=== PATIENT | female | born 1965 | race Hispanic/Latino ===

== ENCOUNTER 2016-06-19 09:46 | Emergency (ER) | payer MEDICAID, OTHER ==
[2016-06-19] MEDS ORDERED: MORPHINE 4 MG/ML 1ML SYRINGE As Ordered ONE (10:34)
[2016-06-19] MEDS ORDERED: ONDANSETRON 4MG/2ML VIAL (J2405) As Ordered ONE (10:34)
[2016-06-19 10:49] LABS: BASO # 0.1 K/mm3 (0.0-0.2); EOS # 0.1 K/mm3 (0.0-0.50); EOS % 1.9 % (0.0-3.0); LARGE UNSTAINED CELL # 0.1 K/mm3 (0.0-0.4); LYMPH # 1.5 K/mm3 (1.5-4.5); LYMPH % 25.7 % (24.0-44.0); MEAN CORPUSCULAR HEMOGLOBIN 31.5 pg (27.0-33.0); MEAN CORPUSCULAR HGB CONC 32.9 g/dl (32.0-36.5); MEAN CORPUSCULAR VOLUME 95.6 fl (80.0-96.0); MONO # 0.3 K/mm3 (0.0-0.8); MONO % 5.6 % (0.0-5.0); NEUTROPHILS # 3.7 K/mm3 (1.8-7.7); NEUTROPHILS % 64.8 % (36.0-66.0); PLATELET COUNT, AUTOMATED 218 k/mm3 (150-450); WHITE BLOOD COUNT 5.7 K/mm3 (4.0-10.0)
--- NOTE | 2016-06-19 10:55 | REP ---
CT study of the abdomen and pelvis without contrast: Renal stone protocol. History: Right flank pain, renal colic. CT findings: The lung windows demonstrate an area of irregular linear fibrosis in the right lower lobe. The liver and the spleen are normal in size and homogeneous in texture. Gallbladder and pancreas are unremarkable. No adrenal lesion is seen on either side. There is no evidence of hydronephrosis in either kidney. No intrarenal calculus is seen on either side. No ureteral or bladder calculus is seen. There are pelvic phleboliths. The patient is status post hysterectomy. A normal appendix is seen in the right lower quadrant. There is a small periumbilical ventral hernia. Small and large intestinal bowel loops are unremarkable. Impression: 1. No urinary tract calculus or hydronephrosis. 2. Small periumbilical ventral hernia. 3. Status post hysterectomy. 4. Normal appendix seen. Signed by Jose Antonio Castrejon MD 06/19/2016 01:41 P
[2016-06-19 11:14] LABS: ALBUMIN 3.6 GM/DL (3.2-5.2); ALBUMIN/GLOBULIN RATIO 0.82 (1.00-1.93); ALKALINE PHOSPHATASE 96 U/L (45-117); ALT/SGPT 24 U/L (12-78); AMYLASE 70 U/L (25-115); ANION GAP 4 MEQ/L (8-16); AST/SGOT 18 U/L (15-37); BILIRUBIN,DIRECT < 0.1 MG/DL (0.0-0.2); BILIRUBIN,TOTAL 0.4 MG/DL (0.2-1.0); BLOOD UREA NITROGEN 20 MG/DL (7-18); CALCIUM LEVEL 8.7 MG/DL (8.5-10.1); CARBON DIOXIDE LEVEL 31 MEQ/L (21-32); CHLORIDE LEVEL 105 MEQ/L (98-107); CREATININE FOR GFR 0.96 MG/DL (0.55-1.02); GLOMERULAR FILTRATION RATE > 60.0 (>51); GLUCOSE, FASTING 78 MG/DL (70-105); POTASSIUM SERUM 4.2 MEQ/L (3.5-5.1); SODIUM LEVEL 140 MEQ/L (136-145)
[2016-06-19] MEDS ORDERED: NITROFURANTOIN (MACROBID) 100 MG CAP As Ordered ONE (11:41)
--- NOTE | 2016-06-19 11:45 | EDDOCDS ---
Physician Documentation [facility] Name: Ariadna Alanis Age: 51 yrs Sex: Female : 1965 Arrival Date: 06/19/2016 Time: 09:46 Bed I4 / M4 Private MD: Unknown Pcp Disposition: 06/19/16 11:24 Discharged to Home/Self Care. Impression: Urinary tract infection, site not specified, Low back pain - Acute, Unspecified abdominal hernia - Ventral Hernia on CT. - Condition is Stable. - Discharge Instructions: Back Pain, Adult, Urinary Tract Infection, Vfdc-bs-Iwzz, Hernia, Ttqy-vb-Kavd. - Prescriptions for Percocet 5- 325 mg Oral Tablet - take 1 tablet by ORAL route every 6 hours As needed MDD: 4 tabs; 20 tablet. Macrobid 100 mg Oral Capsule - take 100 milligram by ORAL route every 12 hours for 10 days; 20 capsule. - Medication Reconciliation, Local Pharmacy Hours form. - [facility] ; When: 1 - 2 days; Reason: Recheck today's complaints, Continuance of care. Follow up: Emergency Department; Reason: Worsening of conditions. Follow up: Danish Delvalle DO; When: Call to arrange an appointment; Reason: Further diagnostic work-up, Recheck today's complaints, Continuance of care. - Problem is new. - Symptoms have improved. Historical: - Allergies: no known allergies; - Home Meds: 1. trazodone 50 mg Oral tab 1 tab nightly 2. lisinopril 20 mg Oral tab 1 tab twice a day 3. EstroGel 1.25 gram/actuation transdermal glpm 1 pump once daily 4. fluoxetine 20 mg Oral tab 1 tab once daily 5. hydroxyzine HCl 25 mg Oral tab 1 tab as needed - PMHx: Hypertension; Anxiety; - PSHx: right shoulder; Hysterectomy; - Social history: Smoking status: Patient uses tobacco products, heavy tobacco smoker. No barriers to communication noted, The patient speaks fluent Kinyarwanda, Speaks appropriately for age. - Family history: Not pertinent. - : The pt / caregiver states he / she is not on anticoagulants. Home medication list is obtained from the patient. 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 5 in. (165.10 cm); Pain 10/10; 11:17 BP 120 / 74; Pulse 61; Resp 16; Pulse Ox 95% ; jmk 11:40 BP 144 / 91; Pulse 65; Resp 20; Temp 97.0(O); Pulse Ox 97% on R/A; Pain 6/10; jml1 09:48 Body Mass Index 20.47 (55.79 kg, 165.10 cm) jrd MDM: 10:10 IV Saline Lock ordered. ef1 10:10 Undress patient appropriately for examination ordered. ef1 10:10 morphine 4 mg IVP once ordered. ef1 10:11 Ondansetron 4 mg IVP once ordered. ef1 10:11 Amylase Ordered. EDMS 10:11 Basic Metabolic Profile Ordered. EDMS 10:11 CBC with Diff Ordered. EDMS 10:11 Lipase Ordered. EDMS 10:11 Liver Profile Ordered. EDMS 10:11 Urinalysis Ordered. EDMS 10:11 Urine Culture Ordered. EDMS 10:11 CT ABD & PELVIS: No Contrast Ordered. EDMS 10:11 NOTHING BY MOUTH+DIET ordered. EDMS 10:51 CBC with Diff Reviewed. ef1 10:56 Financial registration complete. lg 11:21 Basic Metabolic Profile Reviewed. ef1 11:21 Liver Profile Reviewed. ef1 11:21 Urinalysis Reviewed. ef1 11:21 Amylase Reviewed. ef1 11:21 Lipase Reviewed. ef1 11:21 CT ABD & PELVIS: No Contrast Reviewed. ef1 11:23 Nitrofurantoin 100 mg PO once ordered. ef1 11:35 [facility] Payment Agreement was scanned into JoggleBug and attached to record. lg Administered Medications: 10:39 Drug: morphine 4 mg [morphine 4 mg/mL intravenous cartridge (1 mL)] Route: IVP; Site: dls right antecubital; 10:39 Drug: Ondansetron 4 mg [ondansetron HCl 2 mg/mL intravenous solution (2 mL)] Route: dls IVP; Site: right antecubital; 11:43 Drug: Nitrofurantoin 100 mg Route: PO; deana Signatures: Dispatcher MedHost EDMS Ortez,Josep,RN RN Celestino Lee, Reg Reg lg Christianne Celis, PA-C PA-C ef1 Susu Ferrera RN RN hs1 Cassandra Gibson RN dls The chart was reviewed and I authenticate all verbal orders and agree with the evaluation and treatment provided.Attachments: 11:35 [facility] Payment Agreement lg MTDD
--- NOTE | 2016-06-19 11:45 | EDDOCDS ---
Nurse's Notes [facility] Name: Ariadna Alanis Age: 51 yrs Sex: Female : 1965 Arrival Date: 06/19/2016 Time: 09:46 Bed I4 / M4 Private MD: Unknown Pcp Diagnosis: Urinary tract infection, site not specified;Low back pain-Acute;Unspecified abdominal hernia-Ventral Hernia on CT Presentation: 06/19 09:50 Presenting complaint: Patient states: lower back pain and history of stage 3 kidney hs1 disease patient states was concerned. Patient reports that she has no issues urinating at present. Patient reports pain traveling down the backs of her legs through her buttocks. Adult Sepsis Screening: The patient does not have new or worsening altered mentation. Patient's respiratory rate is less than 22. Systolic blood pressure is greater than 100. Patient has a qSOFA score of 0- Negative Sepsis Screen. Suicide/Homicide risk assessment- the patient denies having any suicidal and/or homicidal ideations and does not present with any other emotional, behavioral or mental health complaints. 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 Transition of care: patient was not received from another setting of care. 09:50 Method Of Arrival: Walkin/Carried/Asstd hs1 10:11 Acuity level changed due to complexity of care. dls 10:11 Acuity: JAMES Level 3 dls Triage Assessment: 09:54 General: Appears in no apparent distress, Behavior is appropriate for age, cooperative. hs1 Pain: Location: back Pain currently is 10 out of 10 on a pain scale. Pt Declines HIV testing. Neurological: Level of Consciousness is awake, alert. Respiratory: Airway is patent Respiratory effort is even, unlabored, Respiratory pattern is regular, symmetrical. Derm: Skin is pink, warm & dry. normal. 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 trazodone 50 mg Oral tab 1 tab nightly 2. lisinopril 20 mg Oral tab 1 tab twice a day 3. EstroGel 1.25 gram/actuation transdermal glpm 1 pump once daily 4. fluoxetine 20 mg Oral tab 1 tab once daily 5. hydroxyzine HCl 25 mg Oral tab 1 tab as needed - PMHx: Hypertension; Anxiety; - PSHx: right shoulder; Hysterectomy; - Social history: Smoking status: Patient uses tobacco products, heavy tobacco smoker. No barriers to communication noted, The patient speaks fluent Azerbaijani, Speaks appropriately for age. - Family history: Not pertinent. - : The pt / caregiver states he / she is not on anticoagulants. Home medication list is obtained from the patient. 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 Screenin:54 Screening information is obtained from the patient. Fall risk: No risks identified. hs1 Assistance ADL's: requires no assistance with activities of daily living. Abuse/DV Screen: The patient / caregiver reports he/she is: not in a situation that causes fear, pain or injury. Nutritional screening: No deficits noted. Advance Directives: There is no active DNR order. home support is adequate. Assessment: 10:42 General: Appears in no apparent distress, skin warm and dry. color satisfactory. Moist jmk pink oral mucosa. indicates right flank pain. without redness swelling or redness. + cva tenderness. abdomen soft and non distended with bowel sounds present x 4.. 11:16 General: Appears state pain has decreased to 7/10. laying quietly on stretcher watching [employer] TV.. Vital Signs: 09:48 BP 128 / 92; Pulse 79; Resp 18; Temp 97.5; Pulse Ox 100% ; Weight 55.79 kg (R); Height d 5 ft. 5 in. (165.10 cm); Pain 10/10; 11:17 BP 120 / 74; Pulse 61; Resp 16; Pulse Ox 95% ; jmk 11:40 BP 144 / 91; Pulse 65; Resp 20; Temp 97.0(O); Pulse Ox 97% on R/A; Pain 6/10; jml1 09:48 Body Mass Index 20.47 (55.79 kg, 165.10 cm) [facility] Vitals: 09:48 Log In Time: June 19, 2016 at 09:40. [facility] ED Course: 09:47 Patient visited by Soham Canela PCA. jrd 09:47 Unknown Pcp is Private Physician. jrd 09:47 Patient moved to Waiting jrd 09:49 Patient visited by Soham Canela PCA. jrd 09:49 Patient moved to Pre RCE jrd 09:52 Triage Initiated hs1 09:55 Patient moved to Triage 3 hs1 10:02 [facility] Celis [facility] ef1 10:02 Angelo Corrigan MD is Attending Physician. ef1 10:02 Patient visited by Christianne Celis PA-C. ef1 10:21 Patient moved to I4 / M4 ct3 10:41 Amylase Sent. jmk 10:41 Basic Metabolic Profile Sent. jmk 10:41 CBC with Diff Sent. jmk 10:41 Lipase Sent. jmk 10:41 Liver Profile Sent. jmk 10:41 Urinalysis Sent. jmk 10:41 Urine Culture Sent. jmk 10:42 The patient / caregiver is instructed regarding the plan of care and ED course. jmk 10:42 Inserted saline lock: 20 gauge in right antecubital area. jmk 10:44 Patient visited by Josep Ortez RN. jmk 11:16 Patient visited by Christianne Celis PA-C. ef1 11:19 CT ABD & PELVIS: No Contrast Returned. EDMS 11:24 [facility] is Referral Physician. ef1 11:24 Patient name changed from Ariadna\S\M\S\Alanis\S\ to Ariadna\S\Tia\S\Alanis. EDMS 11:27 Danish Delvalle DO is Referral Physician. ef1 11:35 [facility] [place] Agreement was scanned into [email or web address] and attached to record. lg 11:41 Patient visited by Cristofer Barfield. jml1 Administered Medications: 10:39 Drug: morphine 4 mg [morphine 4 mg/mL intravenous cartridge (1 mL)] Route: IVP; Site: dls right antecubital; 10:39 Drug: Ondansetron 4 mg [ondansetron HCl 2 mg/mL intravenous solution (2 mL)] Route: dls IVP; Site: right antecubital; 11:43 Drug: Nitrofurantoin 100 mg Route: PO; deana Order Results: Lab Order: Amylase; SPEC'M 06/19/16 10:26 Test: AMYLASE; Value: 70; Range: 25-115; Units: U/L; Status: F Lab Order: Basic Metabolic Profile; SPEC'M 06/19/16 10:26 Test: GLUCOSE, FASTING; Value: 78; Range: 70-105; Units: MG/DL; Status: F Test: BLOOD UREA NITROGEN; Value: 20; Range: 7-18; Abnormal: Above high normal; Units: MG/DL; Status: F Test: CREATININE FOR GFR; Value: 0.96; Range: 0.55-1.02; Units: MG/DL; Status: F Test: GLOMERULAR FILTRATION RATE; Value: > 60.0; Range: >51; Status: F Test: SODIUM LEVEL; Value: 140; Range: 136-145; Units: MEQ/L; Status: F Test: POTASSIUM SERUM; Value: 4.2; Range: 3.5-5.1; Units: MEQ/L; Status: F Test: CHLORIDE LEVEL; Value: 105; Range: 98-107; Units: MEQ/L; Status: F Test: CARBON DIOXIDE LEVEL; Value: 31; Range: 21-32; Units: MEQ/L; Status: F Test: ANION GAP; Value: 4; Range: 8-16; Abnormal: Below low normal; Units: MEQ/L; Status: F Test: CALCIUM LEVEL; Value: 8.7; Range: 8.5-10.1; Units: MG/DL; Status: F Test Note: ; Units are mL/min/1.73 m2 Chronic Kidney Disease Staging per NKF: Stage I & II GFR >=60 Normal to Mildly Decreased Stage III GFR 30-59 Moderately Decreased Stage IV GFR 15-29 Severely Decreased Stage V GFR <15 Very Little GFR Left ESRD GFR <15 on HEADLIGHT 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 Lab Order: CBC with Diff; SPEC'M 06/19/16 10:25 Test: WHITE BLOOD COUNT; Value: 5.7; Range: 4.0-10.0; Units: K/mm3; Status: F Test: RED BLOOD COUNT; Value: 4.29; Range: 4.00-5.40; Units: M/mm3; Status: F Test: HEMOGLOBIN; Value: 13.5; Range: 12.0-16.0; Units: g/dl; Status: F Test: HEMATOCRIT; Value: 41.0; Range: 36.0-47.0; Units: %; Status: F Test: MEAN CORPUSCULAR VOLUME; Value: 95.6; Range: 80.0-96.0; Units: fl; Status: F Test: MEAN CORPUSCULAR HEMOGLOBIN; Value: 31.5; Range: 27.0-33.0; Units: pg; Status: F Test: MEAN CORPUSCULAR HGB CONC; Value: 32.9; Range: 32.0-36.5; Units: g/dl; Status: F Test: RED CELL DISTRIBUTION WIDTH; Value: 13.0; Range: 11.5-14.5; Units: %; Status: F Test: PLATELET COUNT, AUTOMATED; Value: 218; Range: 150-450; Units: k/mm3; Status: F Test: NEUTROPHILS %; Value: 64.8; Range: 36.0-66.0; Units: %; Status: F Test: LYMPH %; Value: 25.7; Range: 24.0-44.0; Units: %; Status: F Test: MONO %; Value: 5.6; Range: 0.0-5.0; Abnormal: Above high normal; Units: %; Status: F Test: EOS %; Value: 1.9; Range: 0.0-3.0; Units: %; Status: F Test: BASO %; Value: 1.0; Range: 0.0-1.0; Units: %; Status: F Test: LARGE UNSTAINED CELL %; Value: 1.0; Range: 0.0-4.0; Units: %; Status: F Test: NEUTROPHILS #; Value: 3.7; Range: 1.8-7.7; Units: K/mm3; Status: F Test: LYMPH #; Value: 1.5; Range: 1.5-4.5; Units: K/mm3; Status: F Test: MONO #; Value: 0.3; Range: 0.0-0.8; Units: K/mm3; Status: F Test: EOS #; Value: 0.1; Range: 0.0-0.50; Units: K/mm3; Status: F Test: BASO #; Value: 0.1; Range: 0.0-0.2; Units: K/mm3; Status: F Test: LARGE UNSTAINED CELL #; Value: 0.1; Range: 0.0-0.4; Units: K/mm3; Status: F Lab Order: Lipase; SPEC'M 06/19/16 10:26 Test: LIPASE; Value: 184; Range: 73-393; Units: U/L; Status: F Lab Order: Liver Profile; SPEC'M 06/19/16 10:26 Test: AST/SGOT; Value: 18; Range: 15-37; Units: U/L; Status: F Test: ALT/SGPT; Value: 24; Range: 12-78; Units: U/L; Status: F Test: ALKALINE PHOSPHATASE; Value: 96; Range: 45-117; Units: U/L; Status: F Test: BILIRUBIN,TOTAL; Value: 0.4; Range: 0.2-1.0; Units: MG/DL; Status: F Test: BILIRUBIN,DIRECT; Value: < 0.1; Range: 0.0-0.2; Units: MG/DL; Status: F Test: TOTAL PROTEIN; Value: 8.0; Range: 6.4-8.2; Units: GM/DL; Status: F Test: ALBUMIN; Value: 3.6; Range: 3.2-5.2; Units: GM/DL; Status: F Test: ALBUMIN/GLOBULIN RATIO; Value: 0.82; Range: 1.00-1.93; Abnormal: Below low normal; Status: F Lab Order: Urinalysis; SPEC'M 06/19/16 10:26 Test: APPEARANCE, URINE; Value: HAZY; Range: CLEAR; Status: F Test: COLOR, URINE; Value: YELLOW; Range: YELLOW; Status: F Test: PH,URINE; Value: 6.0; Range: 5.0-9.0; Units: UNITS; Status: F Test: SPECIFIC GRAVITY URINE AUTO; Value: 1.015; Range: 1.002-1.035; Status: F Test: PROTEIN, URINE AUTO; Value: NEGATIVE; Range: NEGATIVE; Units: mg/dL; Status: F Test: GLUCOSE, URINE (UA) AUTO; Value: NEGATIVE; Range: NEGATIVE; Units: mg/dL; Status: F Test: KETONE, URINE AUTO; Value: NEGATIVE; Range: NEGATIVE; Units: mg/dL; Status: F Test: UROBILINOGEN, URINE AUTO; Value: 0.2; Range: 0.0-2.0; Units: mg/dL; Status: F Test: BILIRUBIN, URINE AUTO; Value: NEGATIVE; Range: NEGATIVE; Status: F Test: NITRITE, URINE AUTO; Value: NEGATIVE; Range: NEGATIVE; Status: F Test: LEUKOCYTE ESTERASE, URINE AUTO; Value: NEGATIVE; Range: NEGATIVE; Status: F Test: BLOOD, URINE BLOOD; Value: 1+; Range: NEGATIVE; Abnormal: Above high normal; Status: F Test: WBC, URINE AUTO; Value: 4; Range: 0-3; Abnormal: Above high normal; Units: /HPF; Status: F Test: RBC, URINE AUTO; Value: 1; Range: 0-3; Units: /HPF; Status: F Test: BACTERIA, URINE AUTO; Value: NEGATIVE; Range: NEGATIVE; Status: F Test: SQUAMOUS EPITHELIAL CELL UR AU; Value: 10; Range: 0-6; Units: /HPF; Status: F Test: MUCUS, URINE; Value: SMALL; Range: NEGATIVE; Status: F Test: HYALINE CAST, URINE AUTO; Value: 0; Range: 0-1; Units: /LPF; Status: F Radiology Order: CT ABD & PELVIS: No Contrast Test: CT ABD & PELVIS: No Contrast REASON FOR EXAMINATION: Renal colic; CT study of the abdomen and pelvis without contrast: Renal stone protocol.; ; History: Right flank pain, renal colic.; ; CT findings: The lung windows demonstrate an area of irregular linear fibrosis; in the right lower lobe.; ; The liver and the spleen are normal in size and homogeneous in texture.; Gallbladder and pancreas are unremarkable. No adrenal lesion is seen on either; side.; ; There is no evidence of hydronephrosis in either kidney. No intrarenal calculus; is seen on either side. No ureteral or bladder calculus is seen. There are; pelvic phleboliths. The patient is status post hysterectomy. A normal appendix; is seen in the right lower quadrant. There is a small periumbilical ventral; hernia. Small and large intestinal bowel loops are unremarkable.; ; Impression:; 1. No urinary tract calculus or hydronephrosis.; 2. Small periumbilical ventral hernia.; 3. Status post hysterectomy.; 4. Normal appendix seen.; ; ; ; ; Unreviewed; Outcome: 11:24 Discharge ordered by Provider. ef1 11:43 Discharge Assessment: Patient awake, alert and oriented x 3. No cognitive and/or jmk functional deficits noted. Patient verbalized understanding of disposition instructions. patient administered narcotics - yes. Pt provided with safe discharge. The following High Risk Discharge criteria are identified: None. Discharged to home ambulatory, with family, with parent. Condition: good. Discharge instructions given to patient, Instructed on discharge instructions, follow up and referral plans. medication usage, Demonstrated understanding of instructions, medications, Pt was receptive of discharge instructions/ teaching. No special radiology studies were completed. Property :Personal belongings accompany Pt. 11:44 Patient left the ED. deana Signatures: Dispatcher MedHost EDMS Josep Ortez RN RN Cassandra Figueroa RN RN Celestino Bliss, Reg Reg lg Christianne Celis, PA-C PA-C ef1 Susu Ferrera RN RN hs1 Mini Edmond, EARLY CHILDHOOD ASSOCIATE EARLY CHILDHOOD ASSOCIATE ct3 Cristofer Barfield jml1 Soham Canela, EARLY CHILDHOOD ASSOCIATE EARLY CHILDHOOD ASSOCIATE jrd Corrections: (The following items were deleted from the chart) 10:11 09:50 Acuity: JAMES Level 4 hs1 dls MTDD
--- NOTE | 2016-06-21 12:44 | EDDOCDS ---
Physician Documentation [facility] Name: Ariadna Alanis Age: 51 yrs Sex: Female : 1965 Arrival Date: 06/19/2016 Time: 09:46 Bed I4 / M4 Private MD: Unknown Pcp Disposition: 06/19/16 11:24 Discharged to Home/Self Care. Impression: Urinary tract infection, site not specified, Low back pain - Acute, Unspecified abdominal hernia - Ventral Hernia on CT. - Condition is Stable. - Discharge Instructions: Back Pain, Adult, Urinary Tract Infection, Gxty-mr-Ssme, Hernia, Ybwi-rj-Kkbw. - Prescriptions for Percocet 5- 325 mg Oral Tablet - take 1 tablet by ORAL route every 6 hours As needed MDD: 4 tabs; 20 tablet. Macrobid 100 mg Oral Capsule - take 100 milligram by ORAL route every 12 hours for 10 days; 20 capsule. - Medication Reconciliation, Local Pharmacy Hours form. - [facility] ; When: 1 - 2 days; Reason: Recheck today's complaints, Continuance of care. Follow up: Emergency Department; Reason: Worsening of conditions. Follow up: Danish Delvalle DO; When: Call to arrange an appointment; Reason: Further diagnostic work-up, Recheck today's complaints, Continuance of care. - Problem is new. - Symptoms have improved. Historical: - Allergies: no known allergies; - Home Meds: 1. trazodone 50 mg Oral tab 1 tab nightly 2. lisinopril 20 mg Oral tab 1 tab twice a day 3. EstroGel 1.25 gram/actuation transdermal glpm 1 pump once daily 4. fluoxetine 20 mg Oral tab 1 tab once daily 5. hydroxyzine HCl 25 mg Oral tab 1 tab as needed - PMHx: Hypertension; Anxiety; - PSHx: right shoulder; Hysterectomy; - Social history: Smoking status: Patient uses tobacco products, heavy tobacco smoker. No barriers to communication noted, The patient speaks fluent Korean, Speaks appropriately for age. - Family history: Not pertinent. - : The pt / caregiver states he / she is not on anticoagulants. Home medication list is obtained from the patient. 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 5 in. (165.10 cm); Pain 10/10; 11:17 BP 120 / 74; Pulse 61; Resp 16; Pulse Ox 95% ; jmk 11:40 BP 144 / 91; Pulse 65; Resp 20; Temp 97.0(O); Pulse Ox 97% on R/A; Pain 6/10; jml1 09:48 Body Mass Index 20.47 (55.79 kg, 165.10 cm) jrd MDM: 10:10 IV Saline Lock ordered. ef1 10:10 Undress patient appropriately for examination ordered. ef1 10:10 morphine 4 mg IVP once ordered. ef1 10:11 Ondansetron 4 mg IVP once ordered. ef1 10:11 Amylase Ordered. EDMS 10:11 Basic Metabolic Profile Ordered. EDMS 10:11 CBC with Diff Ordered. EDMS 10:11 Lipase Ordered. EDMS 10:11 Liver Profile Ordered. EDMS 10:11 Urinalysis Ordered. EDMS 10:11 Urine Culture Ordered. EDMS 10:11 CT ABD & PELVIS: No Contrast Ordered. EDMS 10:11 NOTHING BY MOUTH+DIET ordered. EDMS 10:51 CBC with Diff Reviewed. ef1 10:56 Financial registration complete. lg 11:21 Basic Metabolic Profile Reviewed. ef1 11:21 Liver Profile Reviewed. ef1 11:21 Urinalysis Reviewed. ef1 11:21 Amylase Reviewed. ef1 11:21 Lipase Reviewed. ef1 11:21 CT ABD & PELVIS: No Contrast Reviewed. ef1 11:23 Nitrofurantoin 100 mg PO once ordered. ef1 11:35 [facility] Payment Agreement was scanned into Slingbox and attached to record. lg 14:17 T-Sheet-- Draft Copy was scanned into Slingbox and attached to record. gb 14:17 Radiology Report was scanned into Slingbox and attached to record. gb Administered Medications: 10:39 Drug: morphine 4 mg [morphine 4 mg/mL intravenous cartridge (1 mL)] Route: IVP; Site: dls right antecubital; 10:39 Drug: Ondansetron 4 mg [ondansetron HCl 2 mg/mL intravenous solution (2 mL)] Route: dls IVP; Site: right antecubital; 11:43 Drug: Nitrofurantoin 100 mg Route: PO; deana Signatures: Dispatcher MedHost Josep Meyer,RN RN Yoanna Patten, Reg Reg gb PabloCelestino, Reg Reg lg Christianne Celis, PA-C PATabithaC ef1 Susu Ferrera RN RN hs1 Cassandra Gibson RN dls The chart was reviewed and I authenticate all verbal orders and agree with the evaluation and treatment provided.Attachments: 11:35 [facility] Payment Agreement lg 14:17 T-Sheet-- Draft Copy gb Chart Complete MTDD
--- NOTE | 2016-06-21 12:44 | EDDOCDS ---
Nurse's Notes [facility] Name: Ariadna Alanis Age: 51 yrs Sex: Female : 1965 Arrival Date: 06/19/2016 Time: 09:46 Bed I4 / M4 Private MD: Unknown Pcp Diagnosis: Urinary tract infection, site not specified;Low back pain-Acute;Unspecified abdominal hernia-Ventral Hernia on CT Presentation: 06/19 09:50 Presenting complaint: Patient states: lower back pain and history of stage 3 kidney hs1 disease patient states was concerned. Patient reports that she has no issues urinating at present. Patient reports pain traveling down the backs of her legs through her buttocks. Adult Sepsis Screening: The patient does not have new or worsening altered mentation. Patient's respiratory rate is less than 22. Systolic blood pressure is greater than 100. Patient has a qSOFA score of 0- Negative Sepsis Screen. Suicide/Homicide risk assessment- the patient denies having any suicidal and/or homicidal ideations and does not present with any other emotional, behavioral or mental health complaints. 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 Transition of care: patient was not received from another setting of care. 09:50 Method Of Arrival: Walkin/Carried/Asstd hs1 10:11 Acuity level changed due to complexity of care. dls 10:11 Acuity: JAMES Level 3 dls Triage Assessment: 09:54 General: Appears in no apparent distress, Behavior is appropriate for age, cooperative. hs1 Pain: Location: back Pain currently is 10 out of 10 on a pain scale. Pt Declines HIV testing. Neurological: Level of Consciousness is awake, alert. Respiratory: Airway is patent Respiratory effort is even, unlabored, Respiratory pattern is regular, symmetrical. Derm: Skin is pink, warm & dry. normal. IP COUNSEL: 09:55 LMP N/A - Hysterectomy hs1 Historical: - Allergies: no known allergies; - Home Meds: 1. trazodone 50 mg Oral tab 1 tab nightly 2. lisinopril 20 mg Oral tab 1 tab twice a day 3. EstroGel 1.25 gram/actuation transdermal glpm 1 pump once daily 4. fluoxetine 20 mg Oral tab 1 tab once daily 5. hydroxyzine HCl 25 mg Oral tab 1 tab as needed - PMHx: Hypertension; Anxiety; - PSHx: right shoulder; Hysterectomy; - Social history: Smoking status: Patient uses tobacco products, heavy tobacco smoker. No barriers to communication noted, The patient speaks fluent Ecuadorean, Speaks appropriately for age. - Family history: Not pertinent. - : The pt / caregiver states he / she is not on anticoagulants. Home medication list is obtained from the patient. 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 Screenin:54 Screening information is obtained from the patient. Fall risk: No risks identified. hs1 Assistance ADL's: requires no assistance with activities of daily living. Abuse/DV Screen: The patient / caregiver reports he/she is: not in a situation that causes fear, pain or injury. Nutritional screening: No deficits noted. Advance Directives: There is no active DNR order. home support is adequate. Assessment: 10:42 General: Appears in no apparent distress, skin warm and dry. color satisfactory. Moist jmk pink oral mucosa. indicates right flank pain. without redness swelling or redness. + cva tenderness. abdomen soft and non distended with bowel sounds present x 4.. 11:16 General: Appears state pain has decreased to 7/10. laying quietly on stretcher watching [employer] TV.. Vital Signs: 09:48 BP 128 / 92; Pulse 79; Resp 18; Temp 97.5; Pulse Ox 100% ; Weight 55.79 kg (R); Height d 5 ft. 5 in. (165.10 cm); Pain 10/10; 11:17 BP 120 / 74; Pulse 61; Resp 16; Pulse Ox 95% ; jmk 11:40 BP 144 / 91; Pulse 65; Resp 20; Temp 97.0(O); Pulse Ox 97% on R/A; Pain 6/10; jml1 09:48 Body Mass Index 20.47 (55.79 kg, 165.10 cm) [facility] Vitals: 09:48 Log In Time: June 19, 2016 at 09:40. [facility] ED Course: 09:47 Patient visited by Shoam Canela PCA. jrd 09:47 Unknown Pcp is Private Physician. jrd 09:47 Patient moved to Waiting jrd 09:49 Patient visited by Soham Canela PCA. jrd 09:49 Patient moved to Pre RCE jrd 09:52 Triage Initiated hs1 09:55 Patient moved to Triage 3 hs1 10:02 Christianne Celis PA-C is [facility]. ef1 10:02 Angelo Corrigan MD is Attending Physician. ef1 10:02 Patient visited by Christianne Celis PA-C. ef1 10:21 Patient moved to I4 / M4 ct3 10:41 Amylase Sent. jmk 10:41 Basic Metabolic Profile Sent. jmk 10:41 CBC with Diff Sent. jmk 10:41 Lipase Sent. jmk 10:41 Liver Profile Sent. jmk 10:41 Urinalysis Sent. jmk 10:41 Urine Culture Sent. jmk 10:42 The patient / caregiver is instructed regarding the plan of care and ED course. jmk 10:42 Inserted saline lock: 20 gauge in right antecubital area. jmk 10:44 Patient visited by Josep Ortez RN. jmk 11:16 Patient visited by Christianne Celis PA-C. ef1 11:19 CT ABD & PELVIS: No Contrast Returned. EDMS 11:24 [facility] is Referral Physician. ef1 11:24 Patient name changed from Ariadna\S\M\S\Alanis\S\ to Ariadna\S\Tia\S\Alanis. EDMS 11:27 Danish Delvalle DO is Referral Physician. ef1 11:35 [facility] [place] Agreement was scanned into [employer] and attached to record. lg 11:41 Patient visited by Cristofer Barfield. jml1 14:07 CT ABD & PELVIS: No Contrast Returned. EDMS 14:17 T-Sheet-- Draft Copy was scanned into [employer] and attached to record. gb 14:17 Radiology Report was scanned into [employer] and attached to record. gb Administered Medications: 10:39 Drug: morphine 4 mg [morphine 4 mg/mL intravenous cartridge (1 mL)] Route: IVP; Site: dls right antecubital; 10:39 Drug: Ondansetron 4 mg [ondansetron HCl 2 mg/mL intravenous solution (2 mL)] Route: dls IVP; Site: right antecubital; 11:43 Drug: Nitrofurantoin 100 mg Route: PO; jmk Order Results: Lab Order: Amylase; SPEC'M 06/19/16 10:26 Test: AMYLASE; Value: 70; Range: 25-115; Units: U/L; Status: F Lab Order: Basic Metabolic Profile; SPEC'M 06/19/16 10:26 Test: GLUCOSE, FASTING; Value: 78; Range: 70-105; Units: MG/DL; Status: F Test: BLOOD UREA NITROGEN; Value: 20; Range: 7-18; Abnormal: Above high normal; Units: MG/DL; Status: F Test: CREATININE FOR GFR; Value: 0.96; Range: 0.55-1.02; Units: MG/DL; Status: F Test: GLOMERULAR FILTRATION RATE; Value: > 60.0; Range: >51; Status: F Test: SODIUM LEVEL; Value: 140; Range: 136-145; Units: MEQ/L; Status: F Test: POTASSIUM SERUM; Value: 4.2; Range: 3.5-5.1; Units: MEQ/L; Status: F Test: CHLORIDE LEVEL; Value: 105; Range: 98-107; Units: MEQ/L; Status: F Test: CARBON DIOXIDE LEVEL; Value: 31; Range: 21-32; Units: MEQ/L; Status: F Test: ANION GAP; Value: 4; Range: 8-16; Abnormal: Below low normal; Units: MEQ/L; Status: F Test: CALCIUM LEVEL; Value: 8.7; Range: 8.5-10.1; Units: MG/DL; Status: F Test Note: ; Units are mL/min/1.73 m2 Chronic Kidney Disease Staging per NKF: Stage I & II GFR >=60 Normal to Mildly Decreased Stage III GFR 30-59 Moderately Decreased Stage IV GFR 15-29 Severely Decreased Stage V GFR <15 Very Little GFR Left ESRD GFR <15 on END MAKER Lab Order: CBC with Diff; SPEC'M 06/19/16 10:25 Test: WHITE BLOOD COUNT; Value: 5.7; Range: 4.0-10.0; Units: K/mm3; Status: F Test: RED BLOOD COUNT; Value: 4.29; Range: 4.00-5.40; Units: M/mm3; Status: F Test: HEMOGLOBIN; Value: 13.5; Range: 12.0-16.0; Units: g/dl; Status: F Test: HEMATOCRIT; Value: 41.0; Range: 36.0-47.0; Units: %; Status: F Test: MEAN CORPUSCULAR VOLUME; Value: 95.6; Range: 80.0-96.0; Units: fl; Status: F Test: MEAN CORPUSCULAR HEMOGLOBIN; Value: 31.5; Range: 27.0-33.0; Units: pg; Status: F Test: MEAN CORPUSCULAR HGB CONC; Value: 32.9; Range: 32.0-36.5; Units: g/dl; Status: F Test: RED CELL DISTRIBUTION WIDTH; Value: 13.0; Range: 11.5-14.5; Units: %; Status: F Test: PLATELET COUNT, AUTOMATED; Value: 218; Range: 150-450; Units: k/mm3; Status: F Test: NEUTROPHILS %; Value: 64.8; Range: 36.0-66.0; Units: %; Status: F Test: LYMPH %; Value: 25.7; Range: 24.0-44.0; Units: %; Status: F Test: MONO %; Value: 5.6; Range: 0.0-5.0; Abnormal: Above high normal; Units: %; Status: F Test: EOS %; Value: 1.9; Range: 0.0-3.0; Units: %; Status: F Test: BASO %; Value: 1.0; Range: 0.0-1.0; Units: %; Status: F Test: LARGE UNSTAINED CELL %; Value: 1.0; Range: 0.0-4.0; Units: %; Status: F Test: NEUTROPHILS #; Value: 3.7; Range: 1.8-7.7; Units: K/mm3; Status: F Test: LYMPH #; Value: 1.5; Range: 1.5-4.5; Units: K/mm3; Status: F Test: MONO #; Value: 0.3; Range: 0.0-0.8; Units: K/mm3; Status: F Test: EOS #; Value: 0.1; Range: 0.0-0.50; Units: K/mm3; Status: F Test: BASO #; Value: 0.1; Range: 0.0-0.2; Units: K/mm3; Status: F Test: LARGE UNSTAINED CELL #; Value: 0.1; Range: 0.0-0.4; Units: K/mm3; Status: F Lab Order: Lipase; SPEC'M 06/19/16 10:26 Test: LIPASE; Value: 184; Range: 73-393; Units: U/L; Status: F Lab Order: Liver Profile; SPEC'M 06/19/16 10:26 Test: AST/SGOT; Value: 18; Range: 15-37; Units: U/L; Status: F Test: ALT/SGPT; Value: 24; Range: 12-78; Units: U/L; Status: F Test: ALKALINE PHOSPHATASE; Value: 96; Range: 45-117; Units: U/L; Status: F Test: BILIRUBIN,TOTAL; Value: 0.4; Range: 0.2-1.0; Units: MG/DL; Status: F Test: BILIRUBIN,DIRECT; Value: < 0.1; Range: 0.0-0.2; Units: MG/DL; Status: F Test: TOTAL PROTEIN; Value: 8.0; Range: 6.4-8.2; Units: GM/DL; Status: F Test: ALBUMIN; Value: 3.6; Range: 3.2-5.2; Units: GM/DL; Status: F Test: ALBUMIN/GLOBULIN RATIO; Value: 0.82; Range: 1.00-1.93; Abnormal: Below low normal; Status: F Lab Order: Urinalysis; SPEC'M 06/19/16 10:26 Test: APPEARANCE, URINE; Value: HAZY; Range: CLEAR; Status: F Test: COLOR, URINE; Value: YELLOW; Range: YELLOW; Status: F Test: PH,URINE; Value: 6.0; Range: 5.0-9.0; Units: UNITS; Status: F Test: SPECIFIC GRAVITY URINE AUTO; Value: 1.015; Range: 1.002-1.035; Status: F Test: PROTEIN, URINE AUTO; Value: NEGATIVE; Range: NEGATIVE; Units: mg/dL; Status: F Test: GLUCOSE, URINE (UA) AUTO; Value: NEGATIVE; Range: NEGATIVE; Units: mg/dL; Status: F Test: KETONE, URINE AUTO; Value: NEGATIVE; Range: NEGATIVE; Units: mg/dL; Status: F Test: UROBILINOGEN, URINE AUTO; Value: 0.2; Range: 0.0-2.0; Units: mg/dL; Status: F Test: BILIRUBIN, URINE AUTO; Value: NEGATIVE; Range: NEGATIVE; Status: F Test: NITRITE, URINE AUTO; Value: NEGATIVE; Range: NEGATIVE; Status: F Test: LEUKOCYTE ESTERASE, URINE AUTO; Value: NEGATIVE; Range: NEGATIVE; Status: F Test: BLOOD, URINE BLOOD; Value: 1+; Range: NEGATIVE; Abnormal: Above high normal; Status: F Test: WBC, URINE AUTO; Value: 4; Range: 0-3; Abnormal: Above high normal; Units: /HPF; Status: F Test: RBC, URINE AUTO; Value: 1; Range: 0-3; Units: /HPF; Status: F Test: BACTERIA, URINE AUTO; Value: NEGATIVE; Range: NEGATIVE; Status: F Test: SQUAMOUS EPITHELIAL CELL UR AU; Value: 10; Range: 0-6; Units: /HPF; Status: F Test: MUCUS, URINE; Value: SMALL; Range: NEGATIVE; Status: F Test: HYALINE CAST, URINE AUTO; Value: 0; Range: 0-1; Units: /LPF; Status: F Lab Order: Urine Culture; SPEC'M 06/19/16 10:26 Test: URINE CULTURE; Value: <EXTERNAL COMMENT eCWMed> FULL REPORT IN LAB NOTES (eCW and Medent).; Status: F Test: URINE CULTURE; Value: URINE CULTURE RESULT NO GROWTH; Status: F Radiology Order: CT ABD & PELVIS: No Contrast Test: CT ABD & PELVIS: No Contrast REASON FOR EXAMINATION: Renal colic; CT study of the abdomen and pelvis without contrast: Renal stone protocol.; ; History: Right flank pain, renal colic.; ; CT findings: The lung windows demonstrate an area of irregular linear fibrosis; in the right lower lobe.; ; The liver and the spleen are normal in size and homogeneous in texture.; Gallbladder and pancreas are unremarkable. No adrenal lesion is seen on either; side.; ; There is no evidence of hydronephrosis in either kidney. No intrarenal calculus; is seen on either side. No ureteral or bladder calculus is seen. There are; pelvic phleboliths. The patient is status post hysterectomy. A normal appendix; is seen in the right lower quadrant. There is a small periumbilical ventral; hernia. Small and large intestinal bowel loops are unremarkable.; ; Impression:; ; 1. No urinary tract calculus or hydronephrosis.; ; 2. Small periumbilical ventral hernia.; ; 3. Status post hysterectomy.; ; 4. Normal appendix seen.; ; ; Signed by; Jose Antonio Castrejon MD 06/19/2016 01:41 P; Outcome: 11:24 Discharge ordered by Provider. ef1 11:43 Discharge Assessment: Patient awake, alert and oriented x 3. No cognitive and/or k functional deficits noted. Patient verbalized understanding of disposition instructions. patient administered narcotics - yes. Pt provided with safe discharge. The following High Risk Discharge criteria are identified: None. Discharged to home ambulatory, with family, with parent. Condition: good. Discharge instructions given to patient, Instructed on discharge instructions, follow up and referral plans. medication usage, Demonstrated understanding of instructions, medications, Pt was receptive of discharge instructions/ teaching. No special radiology studies were completed. Property :Personal belongings accompany Pt. 11:44 Patient left the ED. deana Signatures: Dispatcher [employer] EDMS Josep Ortez,RN RN Cassandra Figueroa RN RN dls Yoanna Patel, Reg Reg gb Celestino Shah, Reg Reg lg Christianne Celis, PA-C PA-C ef1 Susu Ferrera, RN RN hs1 Mini Edmond, CHILD CARE AIDE CHILD CARE AIDE ct3 Cristofer Barfield jml1 Soham Canela, CHILD CARE AIDE CHILD CARE AIDE jrd Corrections: (The following items were deleted from the chart) 10:11 09:50 Acuity: JAMES Level 4 hs1 dls Chart Complete MTDD
--- NOTE | 2016-06-21 12:44 | EDDOCDS ---
Physician Documentation [facility] Name: Ariadna Alanis Age: 51 yrs Sex: Female : 1965 Arrival Date: 06/19/2016 Time: 09:46 Bed I4 / M4 Private MD: Unknown Pcp Disposition: 06/19/16 11:24 Discharged to Home/Self Care. Impression: Urinary tract infection, site not specified, Low back pain - Acute, Unspecified abdominal hernia - Ventral Hernia on CT. - Condition is Stable. - Discharge Instructions: Back Pain, Adult, Urinary Tract Infection, [id number], Hernia, Hgzq-[id number]. - Prescriptions for Percocet 5- 325 mg Oral Tablet - take 1 tablet by ORAL route every 6 hours As needed MDD: 4 tabs; 20 tablet. Macrobid 100 mg Oral Capsule - take 100 milligram by ORAL route every 12 hours for 10 days; 20 capsule. - Medication Reconciliation, Local Pharmacy Hours form. - [facility] ; When: 1 - 2 days; Reason: Recheck today's complaints, Continuance of care. Follow up: Emergency Department; Reason: Worsening of conditions. Follow up: Danish Delvalle DO; When: Call to arrange an appointment; Reason: Further diagnostic work-up, Recheck today's complaints, Continuance of care. - Problem is new. - Symptoms have improved. Historical: - Allergies: no known allergies; - Home Meds: 1. trazodone 50 mg Oral tab 1 tab nightly 2. lisinopril 20 mg Oral tab 1 tab twice a day 3. EstroGel 1.25 gram/actuation transdermal glpm 1 pump once daily 4. fluoxetine 20 mg Oral tab 1 tab once daily 5. hydroxyzine HCl 25 mg Oral tab 1 tab as needed - PMHx: Hypertension; Anxiety; - PSHx: right shoulder; Hysterectomy; - Social history: Smoking status: Patient uses tobacco products, heavy tobacco smoker. No barriers to communication noted, The patient speaks fluent Occitan, Speaks appropriately for age. - Family history: Not pertinent. - : The pt / caregiver states he / she is not on anticoagulants. Home medication list is obtained from the patient. 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 5 in. (165.10 cm); Pain 10/10; 11:17 BP 120 / 74; Pulse 61; Resp 16; Pulse Ox 95% ; jmk 11:40 BP 144 / 91; Pulse 65; Resp 20; Temp 97.0(O); Pulse Ox 97% on R/A; Pain 6/10; jml1 09:48 Body Mass Index 20.47 (55.79 kg, 165.10 cm) jrd MDM: 10:10 IV Saline Lock ordered. ef1 10:10 Undress patient appropriately for examination ordered. ef1 10:10 morphine 4 mg IVP once ordered. ef1 10:11 Ondansetron 4 mg IVP once ordered. ef1 10:11 Amylase Ordered. EDMS 10:11 Basic Metabolic Profile Ordered. EDMS 10:11 CBC with Diff Ordered. EDMS 10:11 Lipase Ordered. EDMS 10:11 Liver Profile Ordered. EDMS 10:11 Urinalysis Ordered. EDMS 10:11 Urine Culture Ordered. EDMS 10:11 CT ABD & PELVIS: No Contrast Ordered. EDMS 10:11 NOTHING BY MOUTH+DIET ordered. EDMS 10:51 CBC with Diff Reviewed. ef1 10:56 Financial registration complete. lg 11:21 Basic Metabolic Profile Reviewed. ef1 11:21 Liver Profile Reviewed. ef1 11:21 Urinalysis Reviewed. ef1 11:21 Amylase Reviewed. ef1 11:21 Lipase Reviewed. ef1 11:21 CT ABD & PELVIS: No Contrast Reviewed. ef1 11:23 Nitrofurantoin 100 mg PO once ordered. ef1 11:35 [facility] Payment Agreement was scanned into [employer] and attached to record. lg 14:17 T-Sheet-- Draft Copy was scanned into [employer] and attached to record. gb 14:17 Radiology Report was scanned into [employer] and attached to record. gb Administered Medications: 10:39 Drug: morphine 4 mg [morphine 4 mg/mL intravenous cartridge (1 mL)] Route: IVP; Site: dls right antecubital; 10:39 Drug: Ondansetron 4 mg [ondansetron HCl 2 mg/mL intravenous solution (2 mL)] Route: dls IVP; Site: right antecubital; 11:43 Drug: Nitrofurantoin 100 mg Route: PO; deana Signatures: Dispatcher [employer] Josep Meyer,RN RN Yoanna Patten, Reg Reg gb PabloCelestino, Reg Reg lg Christianne Celis, PA-C PATabithaC ef1 Susu Ferrera RN RN hs1 Cassandra Gibson RN dls The chart was reviewed and I authenticate all verbal orders and agree with the evaluation and treatment provided.Attachments: 11:35 [facility] Payment Agreement lg 14:17 T-Sheet-- Draft Copy gb Chart Complete MTDD
== END 2016-06-19 11:44 | disposition home or self-care (01) ==
LOC: M ED 09:46
DX: K43.9 Ventral hernia without obstruction or gangrene (principal); N39.0 Urinary tract infection, site not specified; R11.0 Nausea; M54.5 Low back pain; R10.9 Unspecified abdominal pain; I10 Essential (primary) hypertension; F41.9 Anxiety disorder, unspecified; Z90.79 Acquired absence of other genital organ(s); F17.200 Nicotine dependence, unspecified, uncomplicated; Z79.899 Other long term (current) drug therapy
CPT/HCPCS: 36415; 74176; 80048; 80076; 81001; 82150; 83690; 85025; 87086; 96374; 96375; 99284; J2405

== ENCOUNTER 2016-06-27 14:11 | Emergency (ER) | payer MEDICAID ==
[2016-06-27] MEDS ORDERED: NORCO, ANEXSIA 5/325MG TABLET (HYDROcodone/ACETAMINOPHEN) As Ordered ONE (17:21)
[2016-06-27] MEDS ORDERED: NAPROXEN 250 MG TAB As Ordered ONE (17:21)
--- NOTE | 2016-06-27 17:40 | EDDOCDS ---
Physician Documentation [facility] Name: Ariadna Alanis Age: 51 yrs Sex: Female : 1965 Arrival Date: 06/27/2016 Time: 14:11 Bed Triage 1 Private MD: [facility] Disposition: 06/27 17:18 Critical Care: Critical care not applicable. le Disposition: 06/27/16 17:15 Discharged to Home/Self Care. Impression: Lumbago with sciatica, unspecified side, Acute nasopharyngitis [common cold]. - Condition is Stable. - Discharge Instructions: Chronic Back Pain, Sciatica, Upper Respiratory Infection, Adult, Qmhy-qv-Cusn, Viral Infections, Sagg-Fd-Mjih. - Prescriptions for Naprosyn 500 mg Oral Tablet - take 1 tablet by ORAL route 2 times per day take with food; 30 tablet. Fluticasone 50 mcg/actuation Nasal [place], Suspension - inhale 2 spray by INTRANASAL route once daily; 1 bottle. - Medication Reconciliation, Local Pharmacy Hours form. - Follow up: [facility]; When: Call to arrange an appointment; Reason: Recheck today's complaints, Continuance of care. - Problem is new. - Symptoms are unchanged. - Notes: Keep hydrated Return to the ED for fever or shortness of breath. Also return to the ED for loss of bowel/bladder control, numbness in genital/rectal area, inability to walk or any other concerns Historical: - Allergies: no known allergies; - Home Meds: 1. EstroGel 1.25 gram/actuation transdermal glpm 1 pump once daily 2. fluoxetine 20 mg Oral tab 1 tab once daily 3. hydroxyzine HCl 25 mg Oral tab 1 tab as needed 4. lisinopril 20 mg Oral tab 1 tab twice a day 5. trazodone 50 mg Oral tab 1 tab nightly - PMHx: Anxiety; Hypertension; - PSHx: right shoulder; Hysterectomy; - Social history: Smoking status: Patient uses tobacco products, light tobacco smoker. No barriers to communication noted. - Family history: Not pertinent. - : The pt / caregiver states he / she is not on anticoagulants. Home medication list is obtained from the patient. 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 10 in. (147.32 cm); 17:34 BP 113 / 77; Pulse 73; Resp 18; Temp 97.6; Pulse Ox 99% ; Pain 0/10; cjh 14:12 Body Mass Index 26.75 (58.06 kg, 147.32 cm) elp MDM: 14:21 Strep Screen, Nursing ordered. ef1 16:49 [facility] Payment Agreement was scanned into [employer] and attached to record. gb 16:57 UA Ordered. EDMS 17:01 GATS (NEGATIVE STREP SCREEN) Ordered. EDMS 17:08 Financial registration complete. gb 17:14 Naproxen 500 mg PO once; administer with food or milk ordered. le 17:14 HYDROcodone-acetaminophen 5 mg-325 mg 1 tabs PO once ordered. le Signatures: Dispatcher [employer] EDMS Yoanna Patel, Reg Reg gb Ana Banuelos, WHEEL BRAIDER WHEEL BRAIDER Christianne Henson, PAAndres PA-C ef1 Holli Carlos,RN RN [facility] The chart was reviewed and I authenticate all verbal orders and agree with the evaluation and treatment provided.Attachments: 16:49 [facility] Payment Agreement gb MTDD
--- NOTE | 2016-06-27 17:40 | EDDOCDS ---
Nurse's Notes [facility] Name: Ariadna Alanis Age: 51 yrs Sex: Female : 1965 Arrival Date: 06/27/2016 Time: 14:11 Bed Triage 1 Private [facility]: [facility] Diagnosis: Lumbago with sciatica, unspecified side;Acute nasopharyngitis [common cold] Presentation: 06/27 14:16 Presenting complaint: Patient states: cough and cold symptoms for a week, sore throat, [facility] runny nose and eyes, was seen here for back pain and it's getting worses. Acute neurological deficits are not present. Mechanism of Injury: No Mechanism of Injury. Adult Sepsis Screening: The patient does not have new or worsening altered mentation. Patient's respiratory rate is less than 22. Systolic blood pressure is greater than 100. Patient has a qSOFA score of 0- Negative Sepsis Screen. Suicide/Homicide risk assessment- the patient denies having any suicidal and/or homicidal ideations and does not present with any other emotional, behavioral or mental health complaints. 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 Transition of care: patient was not received from another setting of care. 14:16 Acuity: JAMES Level 3 [facility] 14:16 Method Of Arrival: Walkin/Carried/Asstd [facility] Triage Assessment: 14:18 General: Appears in no apparent distress, uncomfortable, Behavior is appropriate for [facility] age, cooperative. Pain: Location: back Pain currently is 10 out of 10 on a pain scale. HIV screening NA for this visit Offered previously. Respiratory: Reports cough that is. Musculoskeletal: Range of motion intact in all extremities. 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 EstroGel 1.25 gram/actuation transdermal glpm 1 pump once daily 2. fluoxetine 20 mg Oral tab 1 tab once daily 3. hydroxyzine HCl 25 mg Oral tab 1 tab as needed 4. lisinopril 20 mg Oral tab 1 tab twice a day 5. trazodone 50 mg Oral tab 1 tab nightly - PMHx: Anxiety; Hypertension; - PSHx: right shoulder; Hysterectomy; - Social history: Smoking status: Patient uses tobacco products, light tobacco smoker. No barriers to communication noted. - Family history: Not pertinent. - : The pt / caregiver states he / she is not on anticoagulants. Home medication list is obtained from the patient. 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 Screenin:34 Screening information is obtained from the patient. Fall risk: No risks identified. [facility] Assistance ADL's: requires no assistance with activities of daily living. Abuse/DV Screen: The patient / caregiver reports he/she is: not in a situation that causes fear, pain or injury. Nutritional screening: No deficits noted. Advance Directives: There is no active DNR order. home support is adequate. Assessment: 17:34 General: Appears in no apparent distress, comfortable, Behavior is appropriate for age, [facility] cooperative, reviewed discharge instructions with patient who denies distress, denies new problems or complaints, denies further needs. Pain: Denies pain. Respiratory: Airway is patent Respiratory effort is even, unlabored, Respiratory pattern is regular, symmetrical. Respiratory: Reports cough that is. Derm: Skin is pink, warm & dry. Vital Signs: 14:12 BP 105 / 85; Pulse 106; Resp 20; Temp 97.8(O); Pulse Ox 100% on R/A; Weight 58.06 kg elp (M); Height 4 ft. 10 in. (147.32 cm); 17:34 BP 113 / 77; Pulse 73; Resp 18; Temp 97.6; Pulse Ox 99% ; Pain 0/10; [facility] 14:12 Body Mass Index 26.75 (58.06 kg, 147.32 cm) el Vitals: 14:12 Log In Time: June 27, 2016 at 14:10. elp 16:59 Strep Screen is obtained and tested: Negative, a GATSNEG culture is ordered in [facility] and sent. ED Course: 14:12 Patient visited by Arelis Agarwal PCA. elp 14:12 [facility] is Private Physician. elp 14:12 Patient moved to Waiting elp 14:14 Patient visited by Arelis Agarwal PCA. elp 14:14 Patient moved to Pre RCE elp 14:18 Triage Initiated [facility] 16:39 Patient moved to Triage 1 hs1 16:49 [facility] [place] was scanned into [employer] and attached to record. gb 16:53 [facility] F[facility] le 17:01 Patient visited by Ana Banuelos FNP. le 17:15 [facility] is Referral Physician. 17:34 The patient / caregiver is instructed regarding the plan of care and ED course. [facility] 17:34 No IV's were initiated during this patient's visit. No procedures done that require [facility] assistance. Order Results: Lab Order: UA; SPEC'M 06/27/16 16:58 Test: APPEARANCE, URINE; Value: CLEAR; Range: CLEAR; Status: F Test: COLOR, URINE; Value: YELLOW; Range: YELLOW; Status: F Test: PH,URINE; Value: 6.0; Range: 5.0-9.0; Units: UNITS; Status: F Test: SPECIFIC GRAVITY URINE AUTO; Value: 1.010; Range: 1.002-1.035; Status: F Test: PROTEIN, URINE AUTO; Value: NEGATIVE; Range: NEGATIVE; Units: mg/dL; Status: F Test: GLUCOSE, URINE (UA) AUTO; Value: NEGATIVE; Range: NEGATIVE; Units: mg/dL; Status: F Test: KETONE, URINE AUTO; Value: NEGATIVE; Range: NEGATIVE; Units: mg/dL; Status: F Test: UROBILINOGEN, URINE AUTO; Value: 0.2; Range: 0.0-2.0; Units: mg/dL; Status: F Test: BILIRUBIN, URINE AUTO; Value: NEGATIVE; Range: NEGATIVE; Status: F Test: NITRITE, URINE AUTO; Value: NEGATIVE; Range: NEGATIVE; Status: F Test: LEUKOCYTE ESTERASE, URINE AUTO; Value: NEGATIVE; Range: NEGATIVE; Status: F Test: BLOOD, URINE BLOOD; Value: NEGATIVE; Range: NEGATIVE; Status: F Test: WBC, URINE AUTO; Value: 1; Range: 0-3; Units: /HPF; Status: F Test: RBC, URINE AUTO; Value: 1; Range: 0-3; Units: /HPF; Status: F Test: BACTERIA, URINE AUTO; Value: NEGATIVE; Range: NEGATIVE; Status: F Test: SQUAMOUS EPITHELIAL CELL UR AU; Value: 2; Range: 0-6; Units: /HPF; Status: F Test: MUCUS, URINE; Value: SMALL; Range: NEGATIVE; Status: F Test: HYALINE CAST, URINE AUTO; Value: 0; Range: 0-1; Units: /LPF; Status: F Outcome: 17:15 Discharge ordered by Provider. le 17:34 Discharge Assessment: Patient awake, alert and oriented x 3. No cognitive and/or [facility] functional deficits noted. Patient verbalized understanding of disposition instructions. patient administered narcotics - yes. Pt provided with safe discharge. The following High Risk Discharge criteria are identified: None. Discharged to home ambulatory. Condition: good Condition: stable Condition: improved. Discharge instructions given to patient, Instructed on discharge instructions, follow up and referral plans. medication usage, no driving heavy equipment, no drinking with medication, Demonstrated understanding of instructions, medications, Pt was receptive of discharge instructions/ teaching. Prescriptions given X 2. No special radiology studies were completed. Property :Personal belongings accompany Pt. 17:39 Patient left the ED. [facility] Signatures: Yoanna Patel, Reg Reg gb Ana Banuelos, BEAD WORKER SEWING BEAD WORKER SEWING Susu Thomas RN RN hs1 Holli Carlos RN RN [facility] Arelis Agarwal, THRASHER FEEDER THRASHER FEEDER elp MTDD
--- NOTE | 2016-06-29 18:40 | EDDOCDS ---
Physician Documentation [facility] Name: Ariadna Alanis Age: 51 yrs Sex: Female : 1965 Arrival Date: 06/27/2016 Time: 14:11 Bed Triage 1 Private MD: [facility] Disposition: 06/27 17:18 Critical Care: Critical care not applicable. le Disposition: 06/27/16 17:15 Discharged to Home/Self Care. Impression: Lumbago with sciatica, unspecified side, Acute nasopharyngitis [common cold]. - Condition is Stable. - Discharge Instructions: Chronic Back Pain, Sciatica, Upper Respiratory Infection, Adult, [id number], Viral Infections, Ifwq-Mb-Clri. - Prescriptions for Naprosyn 500 mg Oral Tablet - take 1 tablet by ORAL route 2 times per day take with food; 30 tablet. Fluticasone 50 mcg/actuation Nasal [place], Suspension - inhale 2 spray by INTRANASAL route once daily; 1 bottle. - Medication Reconciliation, Local Pharmacy Hours form. - [facility] up: [facility]; When: Call to arrange an appointment; Reason: Recheck today's complaints, Continuance of care. - Problem is new. - Symptoms are unchanged. - Notes: Keep hydrated Return to the ED for fever or shortness of breath. Also return to the ED for loss of bowel/bladder control, numbness in genital/rectal area, inability to walk or any other concerns Historical: - Allergies: no known allergies; - Home Meds: 1. EstroGel 1.25 gram/actuation transdermal glpm 1 pump once daily 2. fluoxetine 20 mg Oral tab 1 tab once daily 3. hydroxyzine HCl 25 mg Oral tab 1 tab as needed 4. lisinopril 20 mg Oral tab 1 tab twice a day 5. trazodone 50 mg Oral tab 1 tab nightly - PMHx: Anxiety; Hypertension; - PSHx: right shoulder; Hysterectomy; - Social history: Smoking status: Patient uses tobacco products, light tobacco smoker. No barriers to communication noted. - Family history: Not pertinent. - : The pt / caregiver states he / she is not on anticoagulants. Home medication list is obtained from the patient. 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 10 in. (147.32 cm); 17:34 BP 113 / 77; Pulse 73; Resp 18; Temp 97.6; Pulse Ox 99% ; Pain 0/10; cjh 14:12 Body Mass Index 26.75 (58.06 kg, 147.32 cm) elp MDM: 14:21 Strep Screen, Nursing ordered. ef1 16:49 [facility] Payment Agreement was scanned into [employer] and attached to record. gb 16:57 UA Ordered. EDMS 17:01 GATS (NEGATIVE STREP SCREEN) Ordered. EDMS 17:08 Financial registration complete. gb 17:14 Naproxen 500 mg PO once; administer with food or milk ordered. le 17:14 HYDROcodone-acetaminophen 5 mg-325 mg 1 tabs PO once ordered. le 06/28 11:07 T-Sheet-- Draft Copy was scanned into [employer] and attached to record. gb Signatures: Dispatcher [employer] EDMS Yoanna Patel, Reg Reg gb Ana Banuelos, METAL FINISH INSPECTOR METAL FINISH INSPECTOR Christianne Henson, PAAndres PATabithaC ef1 Holli Carlos,RN RN [facility] The chart was reviewed and I authenticate all verbal orders and agree with the evaluation and treatment provided.Attachments: 06/27 16:49 [facility] Payment Agreement gb 06/28 11:07 T-Sheet-- Draft Copy gb Chart Complete MTDD
--- NOTE | 2016-06-29 18:40 | EDDOCDS ---
Nurse's Notes [facility] Name: Ariadna Alanis Age: 51 yrs Sex: Female : 1965 Arrival Date: 06/27/2016 Time: 14:11 Bed Triage 1 Private [facility]: [facility] Diagnosis: Lumbago with sciatica, unspecified side;Acute nasopharyngitis [common cold] Presentation: 06/27 14:16 Presenting complaint: Patient states: cough and cold symptoms for a week, sore throat, [facility] runny nose and eyes, was seen here for back pain and it's getting worses. Acute neurological deficits are not present. Mechanism of Injury: No Mechanism of Injury. Adult Sepsis Screening: The patient does not have new or worsening altered mentation. Patient's respiratory rate is less than 22. Systolic blood pressure is greater than 100. Patient has a qSOFA score of 0- Negative Sepsis Screen. Suicide/Homicide risk assessment- the patient denies having any suicidal and/or homicidal ideations and does not present with any other emotional, behavioral or mental health complaints. Status: Patient is not a customer services manager or dependent. Transition of care: patient was not received from another setting of care. 14:16 Acuity: JAMES Level 3 [facility] 14:16 Method Of Arrival: Walkin/Carried/Asstd [facility] Triage Assessment: 14:18 General: Appears in no apparent distress, uncomfortable, Behavior is appropriate for [facility] age, cooperative. Pain: Location: back Pain currently is 10 out of 10 on a pain scale. HIV screening NA for this visit Offered previously. Respiratory: Reports cough that is. Musculoskeletal: Range of motion intact in all extremities. 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 EstroGel 1.25 gram/actuation transdermal glpm 1 pump once daily 2. fluoxetine 20 mg Oral tab 1 tab once daily 3. hydroxyzine HCl 25 mg Oral tab 1 tab as needed 4. lisinopril 20 mg Oral tab 1 tab twice a day 5. trazodone 50 mg Oral tab 1 tab nightly - PMHx: Anxiety; Hypertension; - PSHx: right shoulder; Hysterectomy; - Social history: Smoking status: Patient uses tobacco products, light tobacco smoker. No barriers to communication noted. - Family history: Not pertinent. - : The pt / caregiver states he / she is not on anticoagulants. Home medication list is obtained from the patient. 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 Screenin:34 Screening information is obtained from the patient. Fall risk: No risks identified. [facility] Assistance ADL's: requires no assistance with activities of daily living. Abuse/DV Screen: The patient / caregiver reports he/she is: not in a situation that causes fear, pain or injury. Nutritional screening: No deficits noted. Advance Directives: There is no active DNR order. home support is adequate. Assessment: 17:34 General: Appears in no apparent distress, comfortable, Behavior is appropriate for age, [facility] cooperative, reviewed discharge instructions with patient who denies distress, denies new problems or complaints, denies further needs. Pain: Denies pain. Respiratory: Airway is patent Respiratory effort is even, unlabored, Respiratory pattern is regular, symmetrical. Respiratory: Reports cough that is. Derm: Skin is pink, warm & dry. Vital Signs: 14:12 BP 105 / 85; Pulse 106; Resp 20; Temp 97.8(O); Pulse Ox 100% on R/A; Weight 58.06 kg elp (M); Height 4 ft. 10 in. (147.32 cm); 17:34 BP 113 / 77; Pulse 73; Resp 18; Temp 97.6; Pulse Ox 99% ; Pain 0/10; [facility] 14:12 Body Mass Index 26.75 (58.06 kg, 147.32 cm) el Vitals: 14:12 Log In Time: June 27, 2016 at 14:10. elp 16:59 Strep Screen is obtained and tested: Negative, a GATSNEG culture is ordered in [facility] and sent. ED Course: 14:12 Patient visited by Arelis Agarwal PCA. elp 14:12 [facility] is Private Physician. elp 14:12 Patient moved to Waiting elp 14:14 Patient visited by Arelis Agarwal PCA. elp 14:14 Patient moved to Pre RCE elp 14:18 Triage Initiated [facility] 16:39 Patient moved to Triage 1 hs1 16:49 [facility] [place] Payment Agreement was scanned into [employer] and attached to record. gb 16:53 [facility] FNP [facility] le 17:01 Patient visited by Ana Banuelos FNP. le 17:15 [facility] is Referral Physician. 17:34 The patient / caregiver is instructed regarding the plan of care and ED course. [facility] 17:34 No IV's were initiated during this patient's visit. No procedures done that require [facility] assistance. 06/28 11:07 T-Sheet-- Draft Copy was scanned into [employer] and attached to record. gb Order Results: Lab Order: UA; SPEC'M 06/27/16 16:58 Test: APPEARANCE, URINE; Value: CLEAR; Range: CLEAR; Status: F Test: COLOR, URINE; Value: YELLOW; Range: YELLOW; Status: F Test: PH,URINE; Value: 6.0; Range: 5.0-9.0; Units: UNITS; Status: F Test: SPECIFIC GRAVITY URINE AUTO; Value: 1.010; Range: 1.002-1.035; Status: F Test: PROTEIN, URINE AUTO; Value: NEGATIVE; Range: NEGATIVE; Units: mg/dL; Status: F Test: GLUCOSE, URINE (UA) AUTO; Value: NEGATIVE; Range: NEGATIVE; Units: mg/dL; Status: F Test: KETONE, URINE AUTO; Value: NEGATIVE; Range: NEGATIVE; Units: mg/dL; Status: F Test: UROBILINOGEN, URINE AUTO; Value: 0.2; Range: 0.0-2.0; Units: mg/dL; Status: F Test: BILIRUBIN, URINE AUTO; Value: NEGATIVE; Range: NEGATIVE; Status: F Test: NITRITE, URINE AUTO; Value: NEGATIVE; Range: NEGATIVE; Status: F Test: LEUKOCYTE ESTERASE, URINE AUTO; Value: NEGATIVE; Range: NEGATIVE; Status: F Test: BLOOD, URINE BLOOD; Value: NEGATIVE; Range: NEGATIVE; Status: F Test: WBC, URINE AUTO; Value: 1; Range: 0-3; Units: /HPF; Status: F Test: RBC, URINE AUTO; Value: 1; Range: 0-3; Units: /HPF; Status: F Test: BACTERIA, URINE AUTO; Value: NEGATIVE; Range: NEGATIVE; Status: F Test: SQUAMOUS EPITHELIAL CELL UR AU; Value: 2; Range: 0-6; Units: /HPF; Status: F Test: MUCUS, URINE; Value: SMALL; Range: NEGATIVE; Status: F Test: HYALINE CAST, URINE AUTO; Value: 0; Range: 0-1; Units: /LPF; Status: F Lab Order: GATS (NEGATIVE STREP SCREEN); SPEC'M 06/27/16 16:58 Test: GATS CULTURE (NEG STREP SCR); Value: GATS RESULT NEGATIVE FOR STREP PYOGENES (GROUP A); Status: F Test: GATS CULTURE (NEG STREP SCR); Value: <EXTERNAL COMMENT eCWMed> FULL REPORT IN LAB NOTES (eCW and Medent).; Status: F Outcome: 06/27 17:15 Discharge ordered by Provider. le 17:34 Discharge Assessment: Patient awake, alert and oriented x 3. No cognitive and/or [facility] functional deficits noted. Patient verbalized understanding of disposition instructions. patient administered narcotics - yes. Pt provided with safe discharge. The following High Risk Discharge criteria are identified: None. Discharged to home ambulatory. Condition: good Condition: stable Condition: improved. Discharge instructions given to patient, Instructed on discharge instructions, follow up and referral plans. medication usage, no driving heavy equipment, no drinking with medication, Demonstrated understanding of instructions, medications, Pt was receptive of discharge instructions/ teaching. Prescriptions given X 2. No special radiology studies were completed. Property :Personal belongings accompany Pt. 17:39 Patient left the ED. [facility] Signatures: Yoanna Patel, Reg Reg gb Ana Banuelos, PAINT LINE PRODUCTION SUPERVISOR PAINT LINE PRODUCTION SUPERVISOR Susu Thomas, RN RN hs1 Holli CarlosRN RN [facility] Arelis Agarwal, SALES REPRESENTATIVE RURAL POWER SALES REPRESENTATIVE RURAL POWER elp Chart Complete MTDD
--- NOTE | 2016-06-29 18:40 | EDDOCDS ---
Physician Documentation [facility] Name: Ariadna Alanis Age: 51 yrs Sex: Female : 1965 Arrival Date: 06/27/2016 Time: 14:11 Bed Triage 1 Private MD: [facility] Disposition: 06/27 17:18 Critical Care: Critical care not applicable. le Disposition: 06/27/16 17:15 Discharged to Home/Self Care. Impression: Lumbago with sciatica, unspecified side, Acute nasopharyngitis [common cold]. - Condition is Stable. - Discharge Instructions: Chronic Back Pain, Sciatica, Upper Respiratory Infection, Adult, Wtgd-[id number], Viral Infections, Tqml-Bt-Jtey. - Prescriptions for Naprosyn 500 mg Oral Tablet - take 1 tablet by ORAL route 2 times per day take with food; 30 tablet. Fluticasone 50 mcg/actuation Nasal [place], Suspension - inhale 2 spray by INTRANASAL route once daily; 1 bottle. - Medication Reconciliation, Local Pharmacy Hours form. - Follow up: [facility]; When: Call to arrange an appointment; Reason: Recheck today's complaints, Continuance of care. - Problem is new. - Symptoms are unchanged. - Notes: Keep hydrated Return to the ED for fever or shortness of breath. Also return to the ED for loss of bowel/bladder control, numbness in genital/rectal area, inability to walk or any other concerns Historical: - Allergies: no known allergies; - Home Meds: 1. EstroGel 1.25 gram/actuation transdermal glpm 1 pump once daily 2. fluoxetine 20 mg Oral tab 1 tab once daily 3. hydroxyzine HCl 25 mg Oral tab 1 tab as needed 4. lisinopril 20 mg Oral tab 1 tab twice a day 5. trazodone 50 mg Oral tab 1 tab nightly - PMHx: Anxiety; Hypertension; - PSHx: right shoulder; Hysterectomy; - Social history: Smoking status: Patient uses tobacco products, light tobacco smoker. No barriers to communication noted. - Family history: Not pertinent. - : The pt / caregiver states he / she is not on anticoagulants. Home medication list is obtained from the patient. 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 10 in. (147.32 cm); 17:34 BP 113 / 77; Pulse 73; Resp 18; Temp 97.6; Pulse Ox 99% ; Pain 0/10; c[facility] 14:12 Body Mass Index 26.75 (58.06 kg, 147.32 cm) elp MDM: 14:21 Strep Screen, Nursing ordered. ef1 16:49 [facility] Payment Agreement was scanned into [employer] and attached to record. gb 16:57 UA Ordered. EDMS 17:01 GATS (NEGATIVE STREP SCREEN) Ordered. EDMS 17:08 Financial registration complete. gb 17:14 Naproxen 500 mg PO once; administer with food or milk ordered. le 17:14 HYDROcodone-acetaminophen 5 mg-325 mg 1 tabs PO once ordered. le 06/28 11:07 T-Sheet-- Draft Copy was scanned into [employer] and attached to record. gb Signatures: Dispatcher [employer] EDMS Yoanna Patel, Reg Reg gb Ana Banuelos, EDGE FINISHER EDGE FINISHER Christianne Henson, PAAndres PATabithaC ef1 Holli Carlos,RN RN [facility] The chart was reviewed and I authenticate all verbal orders and agree with the evaluation and treatment provided.Attachments: 06/27 16:49 [facility] Payment Agreement gb 06/28 11:07 T-Sheet-- Draft Copy gb Chart Complete MTDD
== END 2016-06-27 17:39 | disposition home or self-care (01) ==
LOC: M ED 14:11
DX: J06.9 Acute upper respiratory infection, unspecified (principal); M54.5 Low back pain; F41.9 Anxiety disorder, unspecified; I10 Essential (primary) hypertension; F17.210 Nicotine dependence, cigarettes, uncomplicated; Z79.899 Other long term (current) drug therapy

== ENCOUNTER 2016-12-02 16:13 | Emergency (ER) | payer MEDICAID, OTHER ==
[~2016-12-02] VITALS: Ht 124.5 cm; Wt 61.6 kg
[2016-12-02] MEDS ORDERED: GABA-282 PO (16:30)
[2016-12-02] MEDS ORDERED: CYCL10TA PO (16:30)
[2016-12-02] MEDS ORDERED: FLUO20CA19 PO (16:30)
[2016-12-02] MEDS ORDERED: LISI10TA4 PO (16:30)
[2016-12-02] MEDS ORDERED: ALBU17IN INH (16:30)
[2016-12-02] MEDS ORDERED: IBUP-1022 PO (16:30)
[2016-12-02] MEDS ORDERED: HYDR-3363 PO (16:30)
[2016-12-02] MEDS ORDERED: OMEP40CA2 PO (16:30)
[2016-12-02] MEDS ORDERED: TRAZ1TAB14 PO (16:30)
--- NOTE | 2016-12-02 18:06 | REP ---
Clinical: Periumbilical pain with history of hernia. Comparison: CT dated 06/19/2016. Technique: Gil scale ultrasound examination using curved array transducer. Findings: Directed ultrasound examination demonstrates a very subtle infraumbilical fat-containing hernia measuring at most 10 mm maximal diameter on Valsalva and possibly containing intermesenteric wall of the underlying bowel. Impression: Small infraumbilical hernia possibly containing intermesenteric wall of the underlying bowel. Signed by Adams Whitmore MD 12/02/2016 05:58 P
[2016-12-02 19:49] LABS: MEAN CORPUSCULAR HEMOGLOBIN 30.5 pg (27.0-33.0); MEAN CORPUSCULAR HGB CONC 32.7 g/dl (32.0-36.5); MEAN CORPUSCULAR VOLUME 93.1 fl (80.0-96.0); RED CELL DISTRIBUTION WIDTH 12.7 % (11.5-14.5); WHITE BLOOD COUNT 6.2 K/mm3 (4.0-10.0)
[2016-12-02 20:10] LABS: ALBUMIN 3.7 GM/DL (3.2-5.2); ALBUMIN/GLOBULIN RATIO 1.06 (1.00-1.93); ALKALINE PHOSPHATASE 92 U/L (45-117); ALT/SGPT 21 U/L (12-78); ANION GAP 4 MEQ/L (8-16); AST/SGOT 18 U/L (15-37); BILIRUBIN,TOTAL 0.2 MG/DL (0.2-1.0); BLOOD UREA NITROGEN 25 MG/DL (7-18); CALCIUM LEVEL 8.8 MG/DL (8.5-10.1); CARBON DIOXIDE LEVEL 31 MEQ/L (21-32); CHLORIDE LEVEL 103 MEQ/L (98-107); CREATININE FOR GFR 0.83 MG/DL (0.55-1.02); GLOMERULAR FILTRATION RATE > 60.0 (>51); GLUCOSE, FASTING 121 MG/DL (70-105); POTASSIUM SERUM 3.9 MEQ/L (3.5-5.1); SODIUM LEVEL 138 MEQ/L (136-145); TOTAL PROTEIN 7.2 GM/DL (6.4-8.2)
[2016-12-02] MEDS ORDERED: METOPROLOL SUCC *XL* 25MG TAB (TopROL *XL*) PO ONE (20:45)
[2016-12-02] MEDS ORDERED: ACETAMINOPH W/CODEINE #3 TAB UD PO ONE (20:45)
[2016-12-02] MEDS ORDERED: cloNIDine 0.1 MG TAB PO ONE ×2 (21:30→22:00)
[2016-12-02 22:39] VITALS: BP 178/104
[2016-12-02 22:40] VITALS: BP 178/104
--- NOTE | 2016-12-03 07:28 | ECGEPIP ---
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
[2017-02-05] MEDS ORDERED: HYDR-3713 PO (14:35)
[2017-02-05] MEDS ORDERED: COLA100C5 PO (14:35)
[2017-02-05] MEDS ORDERED: VITA100067 PO (14:35)
== END 2016-12-02 22:42 | disposition home or self-care (01) ==
LOC: M ED 16:13
DX: K42.9 Umbilical hernia without obstruction or gangrene (principal); F17.210 Nicotine dependence, cigarettes, uncomplicated

== ENCOUNTER → 2016-12-21 | Outpatient (CLI) | payer OTHER ==
[~2016-12-21] MED LIST: ALBU17IN INH; COLA100C5 PO; CYCL10TA PO; FLUO20CA19 PO; GABA-282 PO; HYDR-3363 PO; HYDR-3713 PO; IBUP-1022 PO; LISI10TA4 PO; METO1TAB7 PO; NORV5TAB PO; OMEP20CA3 PO; OMEP40CA2 PO; SENN1TAB10 PO; TRAZ1TAB14 PO; VITA100067 PO
[2016-12-21 09:57] LABS: CHOLESTEROL LEVEL 211 MG/DL (<200); TRIGLYCERIDES LEVEL 153 MG/DL (<150)
[2016-12-23 08:08] LABS: ALT 126 IU/L (0-40); GGT 24 IU/L (0-60); HAPTOGLOBIN 113 mg/dL (34-200); NECROINFLAMM GRADE A2-Moderate activity (.); TOTAL BILIRUBIN 0.4 mg/dL (0.0-1.2)
[2016-12-28 10:15] LABS: HEPATITIS C VIRUS GENOTYPE 4 (.)
== END ==
LOC: M LAB 08:06
PROVIDERS: ATTEND Nurse Practitioner Family
DX: R63.2 Polyphagia (principal); F19.21 Other psychoactive substance dependence, in remission

== ENCOUNTER → 2017-01-01 | Outpatient (CLI) | payer OTHER ==
--- NOTE | 2017-01-01 15:58 | REP ---
Chest two views HISTORY: Shortness of breath Comparison: None The lungs are clear. The heart is normal in size. The pulmonary vasculature is normal in appearance. The bony structure is intact. IMPRESSION: No acute disease. Signed by Amarjit Ruano MD 01/01/2017 03:50 P
[2017-01-01 16:13] LABS: ANION GAP 6 MEQ/L (8-16); BLOOD UREA NITROGEN 24 MG/DL (7-18); CALCIUM LEVEL 9.1 MG/DL (8.5-10.1); CARBON DIOXIDE LEVEL 32 MEQ/L (21-32); CHLORIDE LEVEL 105 MEQ/L (98-107); CREATININE FOR GFR 0.97 MG/DL (0.55-1.02); FREE T4 0.85 NG/DL (0.76-1.46); GLOMERULAR FILTRATION RATE > 60.0 (>51); GLUCOSE, FASTING 79 MG/DL (70-105); POTASSIUM SERUM 4.6 MEQ/L (3.5-5.1); SODIUM LEVEL 143 MEQ/L (136-145)
[2017-01-01 16:15] LABS: THYROID PEROXIDASE ANTIBODY < 28.0 U/ML (<60.0)
[2017-01-01 16:20] LABS: MEAN CORPUSCULAR HEMOGLOBIN 31.2 pg (27.0-33.0); MEAN CORPUSCULAR HGB CONC 34.3 g/dl (32.0-36.5); MEAN CORPUSCULAR VOLUME 91.1 fl (80.0-96.0); RED CELL DISTRIBUTION WIDTH 12.5 % (11.5-14.5); WHITE BLOOD COUNT 5.3 K/mm3 (4.0-10.0)
--- NOTE | 2017-01-01 17:05 | REP ---
LUMBAR SPINE, FIVE VIEWS: HISTORY: Back pain. There is no acute fracture. The L3-4 through L5-S1 intervertebral discs are decreased in height consistent with disc degeneration. Osteophytes are present on L2 through 4. There is narrowing of the right L4-5 and L5-S1 and left L5-S1 facet joints. There is minimal scoliosis convex to the right. IMPRESSION: Degenerative change as described above. Signed by Amarjit Ruano MD 01/01/2017 05:07 P
--- NOTE | 2017-01-03 21:51 | ECGEPIP ---
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
[2017-01-04 00:07] LABS: BENZODIAZEPINES, URINE SCREEN Negative ng/mL (Cutoff=200); METHADONE, URINE SCREEN Negative ng/mL (Cutoff=300); pH, URINE 5.8 (4.5-8.9)
== END ==
LOC: M LAB 14:45
PROVIDERS: ATTEND Nurse Practitioner Family
DX: R06.02 Shortness of breath (principal)

== ENCOUNTER → 2017-01-01 | Outpatient (REF) | payer OTHER ==
[2017-01-03 14:15] LABS: BENZODIAZEPINES, URINE SCREEN Negative ng/mL (Cutoff=200); METHADONE, URINE SCREEN Negative ng/mL (Cutoff=300); pH, URINE 5.6 (4.5-8.9)
== END ==
LOC: M LAB REF 12:31
PROVIDERS: ATTEND Nurse Practitioner Family
DX: F19.21 Other psychoactive substance dependence, in remission (principal)

== ENCOUNTER 2017-01-02 12:44 | Observation (INO) | payer OTHER ==
[~2017-01-02] VITALS: Ht 149.9 cm; Wt 62.4 kg
[~2017-01-02 12:44] MED LIST changes: -COLA100C5 PO; -HYDR-3713 PO; -METO1TAB7 PO; -NORV5TAB PO; -OMEP20CA3 PO; -SENN1TAB10 PO; -VITA100067 PO
[2017-01-02] MEDS ORDERED: METO1TAB7 PO ×2 (13:01→16:38)
[2017-01-02] MEDS ORDERED: LABETALOL HCL 100 MG/20 ML VIAL IV STA ×2 (13:40→16:13)
[2017-01-02] MEDS ORDERED: ASPIRIN 81 MG CHEW TABLET PO ONE (13:45)
[2017-01-02 14:13] LABS: BASO % 0.6 % (0.0-1.0); EOS % 0.9 % (0.0-3.0); LARGE UNSTAINED CELL # 0.1 K/mm3 (0.0-0.4); LARGE UNSTAINED CELL % 1.7 % (0.0-4.0); LYMPH # 1.4 K/mm3 (1.5-4.5); LYMPH % 24.8 % (24.0-44.0); MEAN CORPUSCULAR HEMOGLOBIN 31.1 pg (27.0-33.0); MEAN CORPUSCULAR HGB CONC 33.8 g/dl (32.0-36.5); MEAN CORPUSCULAR VOLUME 91.9 fl (80.0-96.0); MONO # 0.3 K/mm3 (0.0-0.8); MONO % 4.8 % (0.0-5.0); NEUTROPHILS # 3.6 K/mm3 (1.8-7.7); NEUTROPHILS % 67.2 % (36.0-66.0); PLATELET COUNT, AUTOMATED 229 k/mm3 (150-450); RED CELL DISTRIBUTION WIDTH 12.4 % (11.5-14.5); WHITE BLOOD COUNT 5.4 K/mm3 (4.0-10.0)
[2017-01-02 14:19] LABS: INR 0.9
--- NOTE | 2017-01-02 14:24 | REP ---
CT Head without contrast HISTORY: Headache COMPARISON: None There is no intraparenchymal hemorrhage, acute infarct, mass or midline shift. The ventricular system is normal in appearance. There is no extra cerebral collection. There is no fracture. The visualized sinuses are clear. IMPRESSION: There is no intracranial lesion. Signed by Amarjit Ruano MD 01/02/2017 02:15 P
[2017-01-02 14:25] LABS: ALBUMIN 3.8 GM/DL (3.2-5.2); ALBUMIN/GLOBULIN RATIO 0.84 (1.00-1.93); ALKALINE PHOSPHATASE 108 U/L (45-117); ALT/SGPT 91 U/L (12-78); ANION GAP 2 MEQ/L (8-16); AST/SGOT 52 U/L (15-37); BILIRUBIN,DIRECT < 0.1 MG/DL (0.0-0.2); BILIRUBIN,TOTAL 0.4 MG/DL (0.2-1.0); BLOOD UREA NITROGEN 19 MG/DL (7-18); CALCIUM LEVEL 9.7 MG/DL (8.5-10.1); CARBON DIOXIDE LEVEL 34 MEQ/L (21-32); CHLORIDE LEVEL 103 MEQ/L (98-107); CREATININE FOR GFR 0.89 MG/DL (0.55-1.02); GLOMERULAR FILTRATION RATE > 60.0 (>51); GLUCOSE, FASTING 83 MG/DL (70-105); POTASSIUM SERUM 4.7 MEQ/L (3.5-5.1); SODIUM LEVEL 139 MEQ/L (136-145); TOTAL PROTEIN 8.3 GM/DL (6.4-8.2)
--- NOTE | 2017-01-02 14:43 | REP ---
Chest two views HISTORY: Chest pain Comparison: 01/01/2017 The lungs are clear. The heart is normal in size. The pulmonary vasculature is normal in appearance. The bony structure is intact. IMPRESSION: No acute disease. Signed by Amarjit Ruano MD 01/02/2017 02:35 P
[2017-01-02] MEDS: SIMETHICONE 80 MG CHEW TAB PO SCH ×2 (16:00→23:18)
[2017-01-02] MEDS ORDERED: ALBUTEROL SULFATE 2.5 MG/0.5 ML INH NEB SOLN NEB PRN (16:15)
[2017-01-02] MEDS ORDERED: BISACODYL 10 MG SUPP PR PRN (16:15)
[2017-01-02] MEDS ORDERED: METOCLOPRAMIDE INJ 10MG/2ML VIAL (J2765) IV PRN (16:15)
[2017-01-02] MEDS ORDERED: SENN1TAB10 PO (16:38)
[2017-01-02] MEDS ORDERED: OMEP20CA3 PO (16:39)
[2017-01-02] MEDS ORDERED: KETOROLAC 30 MG/ML VIAL (J1885) IV ONE (16:45)
[2017-01-02] MEDS ORDERED: hydrOXYzine 25 MG TAB PO PRN (17:15)
[2017-01-02] MEDS: hydrALAZINE INJ 20 MG/ML VIAL IV SCH (18:00)
--- NOTE | 2017-01-02 18:10 | HPE ---
DATE OF ADMISSION: 01/02/2017 PRIMARY CARE PROVIDER: Mary Jenkins NP CHIEF COMPLAINT: Came from primary medical doctor's office for high blood pressure and chest pain which lasted for half an hour this morning. PAST MEDICAL HISTORY: 1. Hypertension. 2. Chronic back pain. 3. Gastroesophageal reflux disease (GERD). 4. Insomnia. 5. Anxiety and depression. 6. Lumbago with sciatica. 7. Chronic smoker. 8. Asthma. 9. Chronic hepatitis C. HISTORY OF PRESENT ILLNESS: This is a 51-year-old female who has been having left upper quadrant and epigastric pain and also some periumbilical pain for the past one week which she thinks is due to gas and has been bothering her. She has been taking her ibuprofen without much help. She also has low back pain which has also been acting up. Yesterday, she was seen by primary care provider and was found to have elevated blood pressure. 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 She had gone back for a repeat check today, and at that time, she was also complaining of headache and also an episode of chest pain this morning which lasted for a half an hour. She was found to have systolic blood pressures of 180s to 190s with a diastolic of over 100, so she was sent to the emergency room for evaluation. In the emergency department (ED), the patient came in with a blood pressure of 184/111. The patient received IV labetalol. The patient's blood pressure in the emergency room ranged from anywhere from systolic of 180s to 220s and diastolic of 105-115. The patient had a CT scan done in the emergency room which was negative for any intracranial event. The patient had a cardiac enzyme done which first set was negative for any acute cardiac event. The patient's laboratories were in acceptable limits. Subsequently, the patient was admitted to the hospitalist service for hypertensive urgency. The patient does have a small infraumbilical hernia seen on an ultrasound one month prior. PAST SURGICAL HISTORY: 1. (C) section times three. 2. Hernia repair surgery in the past. 3. Hysterectomy. SOCIAL HISTORY: The patient is a smoker. Does not abuse alcohol or recreational drugs. ALLERGIES: No known allergies. HOME MEDICATIONS: - lisinopril 10 mg by mouth daily - metoprolol succinate 50 mg daily, has not started yet - albuterol sulfate two puffs inhalation every four hours as needed for shortness of breath - cyclobenzaprine 10 mg by mouth three times a day as needed for muscle spasm - fluoxetine 40 mg by mouth daily - gabapentin 300 mg by mouth twice a day - hydroxyzine 25 mg by mouth four times a day as needed for anxiety - ibuprofen 600 mg by mouth four times a day as needed for pain - omeprazole 20 mg by mouth daily - Senna two tablets by mouth daily - trazodone 150 mg at bedtime FAMILY HISTORY: Nothing significant. REVIEW OF SYSTEMS: The patient denies any nausea or vomiting. Denies any diarrhea or constipations. Denies any costovertebral angle pain. Denies any blood in urine. Denies any dysuria or frequency of urination. The patient does complain of some epigastric pain and a left upper quadrant pain and periumbilical pain which she describes as sharp, comes and goes, and has been bothering her for a week. She does also complain of right and left costochondral junction pain. Denies any shortness of breath. Denies dizziness or lightheadedness. Denies any diaphoresis. She does also complain of some headache. PHYSICAL EXAMINATION: VITAL SIGNS: Blood pressure 190/110, pulse 66, pulse oximetry 96% on room air, temperature 98. GENERAL: The patient is awake, alert, and oriented times three, laying down in bed, in no acute distress. HEENT: Normocephalic, atraumatic. Moist mucous membranes. Anicteric eyes. CHEST: Clear to auscultation. CARDIOVASCULAR: S1, S2, regular. No rub, murmur or gallop. ABDOMEN: Soft. Bowel sounds normal. There is tenderness to palpation in the epigastrium, left upper quadrant and periumbilical region. There is no rigidity or guarding. BACK: There is no costovertebral angle tenderness. EXTREMITIES: No edema. LABORATORY DATA: WBC 5.4, hemoglobin 14.4, platelets 229. Sodium 139, potassium 4.7, chloride 103, bicarbonate 34, BUN 19, creatinine 0.8, AST 52, ALT 91. Cardiac enzymes, first set negative, BNP 289, TSH 4.88. Coagulation studies are normal. Urine toxicology screen pending. Hepatitis C genotype 4. ASSESSMENT AND PLAN: This is a 51-year-old female admitted for hypertensive urgency and abdominal pain. PLAN: 1. For hypertensive urgency, we will admit the patient to the progressive care unit (PCU). We will increase the dose of lisinopril and start the patient on metoprolol. We will also give as-needed hydralazine with hold parameters. 2. Abdominal pain. She does not have any acute surgical event going on. It could be related to chronic constipation and gastritis. We will give the patient pantoprazole, simethicone and also stool softeners and suppositories. We will reevaluate. After a good bowel movement if the patient still continues to have pain, we will consider abdominal imaging. The patient's hypertensive urgency could be partially related to her pain which has been going on for a week. 3. Chronic low back pain, lumbago and sciatica. We will continue with gabapentin and Flexeril as needed. We will also give Toradol one dose and then as-needed if required. 4. Chronic hepatitis C and transaminitis. We will continue to monitor. No acute events at present. 5. History of gastroesophageal reflux disease (GERD). We will give pantoprazole. 6. Anxiety and insomnia. We will continue with trazodone and fluoxetine. 7. Asthma. We will continue with albuterol as needed. 8. Deep vein thrombosis (DVT) prophylaxis has been ordered. 9. Gastrointestinal (GI) prophylaxis has been ordered.
[2017-01-02] MEDS ORDERED: traZODone 50 MG TAB PO SCH (21:00)
[2017-01-02] MEDS: GABAPENTIN 300 MG CAP PO SCH (21:00)
[2017-01-02] MEDS: SENOKOT S TAB PO SCH (21:00)
[2017-01-02] MEDS ORDERED: METOPROLOL TART 50 MG TAB PO SCH (21:00)
[2017-01-02] MEDS: PANTOPRAZOLE 40MG TAB (PROTONIX) PO SCH (21:00)
[2017-01-02] MEDS ORDERED: SENOKOT S TAB PO SCH (21:00)
[2017-01-02 22:45] VITALS: BP 135/90
[2017-01-02] MEDS: BISACODYL 10 MG SUPP PR SCH (22:58)
[2017-01-02] MEDS ORDERED: SLF 3 ML SYR IV PRN (23:15)
[2017-01-02] MEDS: LISINOPRIL 20 MG TAB PO SCH (23:18)
[2017-01-02] MEDS: ACETAMINOPHEN 500 MG TAB PO PRN (23:19)
[2017-01-02] MEDS: CYCLOBENZAPRINE 10 MG TAB PO PRN (23:19)
[2017-01-03 00:10] VITALS: BP 111/64
[2017-01-03] MEDS: hydrALAZINE INJ 20 MG/ML VIAL IV SCH ×2 (01:56→09:53)
[2017-01-03 04:07] VITALS: BP 104/61
[2017-01-03] MEDS: CYCLOBENZAPRINE 10 MG TAB PO PRN (04:13)
[2017-01-03 05:23] LABS: BASO % 0.5 % (0.0-1.0); EOS # 0.1 K/mm3 (0.0-0.50); EOS % 2.1 % (0.0-3.0); LARGE UNSTAINED CELL # 0.1 K/mm3 (0.0-0.4); LYMPH # 1.7 K/mm3 (1.5-4.5); LYMPH % 31.3 % (24.0-44.0); MEAN CORPUSCULAR HEMOGLOBIN 31.4 pg (27.0-33.0); MEAN CORPUSCULAR HGB CONC 34.3 g/dl (32.0-36.5); MEAN CORPUSCULAR VOLUME 91.5 fl (80.0-96.0); MONO # 0.3 K/mm3 (0.0-0.8); MONO % 6.3 % (0.0-5.0); NEUTROPHILS # 2.9 K/mm3 (1.8-7.7); NEUTROPHILS % 57.7 % (36.0-66.0); PLATELET COUNT, AUTOMATED 221 k/mm3 (150-450); RED CELL DISTRIBUTION WIDTH 12.5 % (11.5-14.5)
[2017-01-03 05:36] LABS: ANION GAP 9 MEQ/L (8-16); BLOOD UREA NITROGEN 33 MG/DL (7-18); CARBON DIOXIDE LEVEL 28 MEQ/L (21-32); CHLORIDE LEVEL 104 MEQ/L (98-107); CREATININE FOR GFR 1.04 MG/DL (0.55-1.02); GLOMERULAR FILTRATION RATE 59.5 (>51); GLUCOSE, FASTING 114 MG/DL (70-105); POTASSIUM SERUM 4.5 MEQ/L (3.5-5.1); SODIUM LEVEL 141 MEQ/L (136-145)
[2017-01-03] MEDS ORDERED: SLF 3 ML SYR IV SCH (06:00)
[2017-01-03 07:45] VITALS: BP 112/65
[2017-01-03 07:54] LABS: ALBUMIN/GLOBULIN RATIO 0.94 (1.00-1.93); ALKALINE PHOSPHATASE 84 U/L (45-117); ALT/SGPT 66 U/L (12-78); AST/SGOT 37 U/L (15-37); BILIRUBIN,DIRECT < 0.1 MG/DL (0.0-0.2); BILIRUBIN,TOTAL 0.3 MG/DL (0.2-1.0); TOTAL PROTEIN 6.2 GM/DL (6.4-8.2)
[2017-01-03] MEDS: BISACODYL 10 MG SUPP PR SCH (09:00)
[2017-01-03] MEDS ORDERED: FLUoxetine 20 MG CAP PO SCH (09:00)
[2017-01-03] MEDS ORDERED: ENOXAPARIN 40 MG/0.4 ML SYRINGE (J1650) SC SCH (09:00)
[2017-01-03] MEDS: SIMETHICONE 80 MG CHEW TAB PO SCH (09:48)
[2017-01-03] MEDS: GABAPENTIN 300 MG CAP PO SCH (09:48)
[2017-01-03] MEDS: LISINOPRIL 20 MG TAB PO SCH (09:49)
[2017-01-03] MEDS: PANTOPRAZOLE 40MG TAB (PROTONIX) PO SCH (09:49)
[2017-01-03] MEDS: SENOKOT S TAB PO SCH (09:51)
[2017-01-03] MEDS: ACETAMINOPHEN 500 MG TAB PO PRN (09:52)
[2017-01-03 09:53] VITALS: BP 112/65
[2017-01-03 12:00] VITALS: BP 115/64
[2017-01-03] MEDS ORDERED: NORV5TAB PO (14:08)
--- NOTE | 2017-01-03 20:09 | ECGEPIP ---
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
[2017-01-04] MEDS ORDERED: PNEUMOCOCCAL VACCINE 0.5ML SYRINGE(90732) PNEUMOVAX 23 IM ONE (09:00)
--- NOTE | 2017-01-05 13:31 | DS.PDOC ---
Discharge Summary General Date of Admission Jan 02, 2017 at 16:14 Date of Discharge 01/03/17 Discharge Summary PROCEDURES PERFORMED DURING STAY: [None]. DISCHARGE DIAGNOSES: 1. Hypertension. 2. Chronic back pain. 3. GERD. 4. Insomnia 5. Anxiety/depression 6. Sciatica 7. Nicotine abuse 8. Asthma 9. Chronic Hep C COMPLICATIONS/CHIEF COMPLAINT: Hypertensive Urgency. HISTORY OF PRESENT ILLNESS: . HOSPITAL COURSE: 51 yo female sent from PCP for office for chest pain and elevated blood pressure. Patient found to be in hypertensive urgency with abdominal pain. Admitted to telemetry for further evaluation and treatment. Patient's pain resolved after bowel movement. Patient's blood pressures also normalized. Acute coronary syndrome ruled out. No events noted on telemetry. Discharged home in stable condition with outpatient follow up. DISCHARGE MEDICATIONS: Please see below. ALLERGIES: Please see below. PHYSICAL EXAMINATION ON DISCHARGE: VITAL SIGNS: Please see below. GENERAL: NAD HEENT: NC/AT NECK: supple CARDIOVASCULAR EXAMINATION: +S1S2, RRR RESPIRATORY EXAMINATION: CTA B/L ABDOMINAL EXAMINATION: soft, NT, +BS EXTREMITIES: no edema SKIN: no rashes NEUROLOGICAL EXAMINATION: no gross focal deficits PSYCHIATRIC EXAMINATION: AAOx3 ACTIVITY: [As tolerated]. DIET: 2 gram sodium, DISPOSITION: Home, Self-Care. DISCHARGE INSTRUCTIONS: 1. Follow up PCP in 3-5 days. 2. Medications as directed. 3. Dietary restrictions as directed. DISCHARGE CONDITION: [Stable]. TIME SPENT ON DISCHARGE: Greater than 30 minutes. Vital Signs/I&Os Vital Signs Date Time Temp Pulse Resp B/P (MAP) Pulse Ox O2 Delivery O2 Flow Rate FiO2 01/03/17 12:15 Room Air 01/03/17 12:00 97.9 65 18 115/64 (81) 100 Discharge Medications Scheduled Amlodipine Besylate (Norvasc) 5 Mg Tab, 5 MG PO DAILY Fluoxetine Hcl (Fluoxetine HCl) 20 Mg Cap, 40 MG PO DAILY, (Reported) Gabapentin (Gabapentin) 300 Mg Cap, 300 MG PO BID, (Reported) Lisinopril (Lisinopril) 10 Mg Tab, 10 MG PO DAILY, (Reported) Omeprazole (Omeprazole) 20 Mg Cap, 20 MG PO DAILY, (Reported) Senna (Senna Lax) 8.6 Mg Tab, 2 TAB PO DAILY, (Reported) Trazodone HCl (Trazodone HCl) 150 Mg Tab, 150 MG PO QHS, (Reported) Scheduled PRN Albuterol Sulfate (Ventolin Hfa) 200 Puff/8 Gm Aers, 2 PUFFS INH Q4H PRN for SHORTNESS OF BREATH, (Reported) Cyclobenzaprine HCl (Cyclobenzaprine HCl) 10 Mg Tab, 10 MG PO TID PRN for MUSCLE SPASMS, (Reported) Hydroxyzine HCl (Hydroxyzine HCl) 25 Mg Tab, 25 MG PO QID PRN for ANXIETY, ( Reported) Ibuprofen (Ibuprofen) 600 Mg Tab, 600 MG PO QID PRN for PAIN, (Reported) Allergies Coded Allergies: No Known Allergies (Unverified , 12/02/16) YEMI FUENTES MD Jan 05, 2017 13:31
[2017-02-05] MEDS ORDERED: HYDR-3713 PO (14:35)
[2017-02-05] MEDS ORDERED: COLA100C5 PO (14:35)
[2017-02-05] MEDS ORDERED: VITA100067 PO (14:35)
== END 2017-01-03 15:06 | disposition home or self-care (01) ==
LOC: EDBD 12:44 → M ED 12:44 → M ED INP 16:14 → M PCU 22:41
PROVIDERS: ADMIT Internal Medicine Nephrology; ATTEND Internal Medicine
DX: I16.0 Hypertensive urgency (principal); M54.40 Lumbago with sciatica, unspecified side; K21.9 Gastro-esophageal reflux disease without esophagitis; G47.00 Insomnia, unspecified; F41.9 Anxiety disorder, unspecified; F32.9 Major depressive disorder, single episode, unspecified; F17.210 Nicotine dependence, cigarettes, uncomplicated; J45.909 Unspecified asthma, uncomplicated; B18.2 Chronic viral hepatitis C; Z79.899 Other long term (current) drug therapy
CPT/HCPCS: 36415; 70450; 71020; 80048; 80076; 82550; 82553; 83880; 85025; 85610; 85730; 93000; 93041; 94760; 96372; 96374; 96375; 96376; 99285; J1650; J1885

== ENCOUNTER 2017-04-11 08:31 | Emergency (ER) | payer MEDICAID, OTHER ==
[~2017-04-11] VITALS: Ht 149.9 cm; Wt 68.2 kg
[~2017-04-11 08:31] MED LIST changes: +COLA100C5 PO; +HYDR-3713 PO; +METO1TAB7 PO; +NORV5TAB PO; +OMEP20CA3 PO; +SENN1TAB10 PO; +VITA100067 PO
[2017-04-11] MEDS ORDERED: CYCL10TA PO (08:49)
[2017-04-11] MEDS ORDERED: ZEPA1TAB PO (08:49)
[2017-04-11] MEDS ORDERED: PARO10TA3 PO (08:49)
[2017-04-11] MEDS ORDERED: AMLO5TAB2 PO (08:49)
[2017-04-11] MEDS ORDERED: KETOROLAC 60 MG/2 ML VIAL (J1885) IM ONE (10:00)
[2017-04-11] MEDS ORDERED: BACLOFEN 10 MG TAB PO ONE (10:00)
[2017-04-11] MEDS ORDERED: BACL1TAB9 PO (10:17)
[2017-04-11 10:32] VITALS: BP 169/113
== END 2017-04-11 10:37 | disposition home or self-care (01) ==
LOC: M ED 08:31
DX: G89.29 Other chronic pain (principal); M54.5 Low back pain; I10 Essential (primary) hypertension; J45.909 Unspecified asthma, uncomplicated; F41.9 Anxiety disorder, unspecified; F33.9 Major depressive disorder, recurrent, unspecified; B19.20 Unspecified viral hepatitis C without hepatic coma; K42.9 Umbilical hernia without obstruction or gangrene; Z79.899 Other long term (current) drug therapy; L23.1 Allergic contact dermatitis due to adhesives; F17.210 Nicotine dependence, cigarettes, uncomplicated
CPT/HCPCS: 96372; 99283; J1885

== ENCOUNTER → 2017-05-07 | Outpatient (CLI) | payer OTHER | LOC: M PAIN 14:45 | DX: M51.36 Other intervertebral disc degeneration, lumbar region (principal); M79.1 Myalgia; I10 Essential (primary) hypertension; K21.9 Gastro-esophageal reflux disease without esophagitis; F17.210 Nicotine dependence, cigarettes, uncomplicated; Z79.82 Long term (current) use of aspirin; Z79.899 Other long term (current) drug therapy | CPT/HCPCS: G0463 ==

== ENCOUNTER 2017-05-10 13:10 | Outpatient (RCR) | payer OTHER | END 2017-05-27 | LOC: M PT 13:10 | DX: Z51.89 Encounter for other specified aftercare (principal); M51.36 Other intervertebral disc degeneration, lumbar region; M79.1 Myalgia | CPT/HCPCS: 97010 ==

== ENCOUNTER 2017-05-29 08:36 | Outpatient (RCR) | payer OTHER | END 2017-06-27 | LOC: M PT 08:36 | DX: Z51.89 Encounter for other specified aftercare (principal); M51.36 Other intervertebral disc degeneration, lumbar region; M79.1 Myalgia | CPT/HCPCS: 97010 ==

== ENCOUNTER → 2017-05-29 | Outpatient (CLI) | payer OTHER | LOC: M RAD 09:51 | DX: Z12.31 Encounter for screening mammogram for malignant neoplasm of breast (principal); Z53.9 Procedure and treatment not carried out, unspecified reason ==

== ENCOUNTER → 2017-06-25 | Outpatient (REF) | payer OTHER ==
[2017-06-25 17:49] LABS: TOTAL 25(OH) VITAMIN D 19.9 NG/ML (30.0-100.0)
== END ==
LOC: M SFHCPLAZ 15:14
DX: E55.9 Vitamin D deficiency, unspecified (principal)
CPT/HCPCS: 82306

== ENCOUNTER → 2017-06-29 | Outpatient (CLI) | payer OTHER | LOC: M RAD 11:28 | DX: N64.4 Mastodynia (principal); R91.8 Other nonspecific abnormal finding of lung field | CPT/HCPCS: 77066 ==

== ENCOUNTER → 2017-07-09 | Outpatient (CLI) | payer OTHER | LOC: M PAIN 14:15 | DX: M46.1 Sacroiliitis, not elsewhere classified (principal); M51.36 Other intervertebral disc degeneration, lumbar region; M79.1 Myalgia; I10 Essential (primary) hypertension; K21.9 Gastro-esophageal reflux disease without esophagitis; J45.909 Unspecified asthma, uncomplicated; B18.2 Chronic viral hepatitis C; F32.9 Major depressive disorder, single episode, unspecified; G47.00 Insomnia, unspecified; E55.9 Vitamin D deficiency, unspecified; F17.210 Nicotine dependence, cigarettes, uncomplicated; Z79.1 Long term (current) use of non-steroidal anti-inflammatories (NSAID); Z79.82 Long term (current) use of aspirin; Z79.899 Other long term (current) drug therapy; Z88.8 Allergy status to other drugs, medicaments and biological substances; Z91.09 Other allergy status, other than to drugs and biological substances; Z86.59 Personal history of other mental and behavioral disorders | CPT/HCPCS: G0463 ==

== ENCOUNTER → 2017-07-24 | Outpatient (REF) | payer OTHER ==
[2017-07-24 15:49] LABS: BASO # 0.1 10^3/uL (0.0-0.2); BASO % 0.8 % (0.0-1.0); EOS # 0.1 10^3/uL (0.0-0.50); EOS % 1.4 % (0.0-3.0); HEMATOCRIT 39.1 % (36.0-47.0); HEMOGLOBIN 12.9 g/dl (12.0-16.0); IMMATURE GRANULOCYTE % 1.1 % (0-3.0); LYMPH # 1.8 10^3/uL (1.5-4.5); LYMPH % 27.1 % (24.0-44.0); MEAN CORPUSCULAR VOLUME 90.9 fl (80.0-96.0); MONO # 0.4 10^3/uL (0.0-0.8); MONO % 5.9 % (0.0-5.0); NEUTROPHILS # 4.1 10^3/uL (1.8-7.7); NEUTROPHILS % 63.7 % (36.0-66.0); PLATELET COUNT, AUTOMATED 240 10^3/uL (150-450); RED CELL DISTRIBUTION WIDTH 12.8 % (11.5-14.5); WHITE BLOOD COUNT 6.5 10^3/uL (4.0-10.0)
[2017-07-24 16:10] LABS: ALBUMIN/GLOBULIN RATIO 1.33 (1.00-1.93); ALKALINE PHOSPHATASE 102 U/L (45-117); ALT/SGPT 17 U/L (12-78); AST/SGOT 14 U/L (7-37); BILIRUBIN,DIRECT < 0.1 MG/DL (0.0-0.2); BILIRUBIN,TOTAL 0.2 MG/DL (0.2-1.0); CHOLESTEROL LEVEL 209 MG/DL (<200); CHOLESTEROL RISK RATIO 2.679 (<5); FREE T4 0.87 NG/DL (0.76-1.46); HDL CHOLESTEROL 78 MG/DL (>40); LDL CHOLESTEROL 80.6 MG/DL (<100); NON-HDL-C 131 MG/DL; TRIGLYCERIDES LEVEL 252 MG/DL (<150)
[2017-07-27 08:19] LABS: HEPATITIS C QUANTITATION HCV Not Detected IU/mL (.)
== END ==
LOC: M SFHCPLAZ 13:40
DX: B18.2 Chronic viral hepatitis C (principal); R63.5 Abnormal weight gain

== ENCOUNTER 2017-08-06 06:25 | Day surgery (SDC) | payer OTHER ==
[2017-08-06] MEDS ORDERED: LIDOCAINE 1% MDV 20ML VIAL SQ (06:45)
[2017-08-06] MEDS ORDERED: PROPOFOL 200 MG/20 ML VIAL As Ordered (07:06)
[2017-08-06] MEDS ORDERED: LIDOCAINE 2% INJ 100 MG/5 ML SDV (FOR ANES.) As Ordered (07:06)
[2017-08-06] MEDS ORDERED: ROCURONIUM BROMIDE 50 MG/5 ML VIAL As Ordered (07:06)
[2017-08-06] MEDS ORDERED: MIDAZOLAM INJ 2 MG/2 ML VIAL (J2250) As Ordered (07:07)
[2017-08-06] MEDS ORDERED: fentaNYL 250 MCG/5 ML INJECTION (J3010) As Ordered (07:07)
[2017-08-06] MEDS ORDERED: ERTAPENEM 1 GM INJ (INVanz) (J1335) As Ordered (07:14)
[2017-08-06] MEDS: LR 1,000 ML IV ×2 (07:30→11:30)
[2017-08-06] MEDS: ERTAPENEM SODIUM 1 GM in NS 50 ML IV (07:36)
[2017-08-06] MEDS: HEPARIN SOD (PORCINE) 5000 UNITS/ML VIAL SQ (07:46)
[2017-08-06] MEDS ORDERED: dexameTHASONE 4 MG/ML 1ML VIAL (J1100) As Ordered (08:56)
[2017-08-06] MEDS ORDERED: GLYCOPYRROLATE INJ 0.2 MG/ML 2 ML VIAL As Ordered ×2 (08:56→08:58)
[2017-08-06] MEDS ORDERED: ONDANSETRON 4MG/2ML VIAL (J2405) As Ordered (08:56)
[2017-08-06] MEDS ORDERED: NEOSTIGMINE 10 MG/10 ML VIAL (J2710) As Ordered ×2 (08:56→08:58)
[2017-08-06] MEDS ORDERED: METOCLOPRAMIDE INJ 10MG/2ML VIAL (J2765) As Ordered (08:56)
[2017-08-06] MEDS ORDERED: KETOROLAC 60 MG/2 ML VIAL (J1885) As Ordered (08:56)
[2017-08-06] MEDS ORDERED: fentaNYL 100 MCG/2 ML INJECTION (J3010) As Ordered (09:26)
[2017-08-06] MEDS ORDERED: HYDROmorphone HCL 2 MG/ML 1ML VIAL (J1170) As Ordered (09:27)
[2017-08-06] MEDS: BUPIVACAINE HCL 0.25% 30 ML VIAL As Ordered (11:01)
[2017-08-06] MEDS: LIDOCAINE 1% SDV INJ 30 ML VIAL As Ordered (11:01)
[2017-08-06] MEDS ORDERED: MEPERIDINE INJ 25 MG/ML VIAL (J2175) As Ordered (11:26)
[2017-08-06] MEDS ORDERED: NORCO, ANEXSIA 5/325MG TABLET (HYDROcodone/ACETAMINOPHEN) PO ×2 (11:30)
[2017-08-06] MEDS ORDERED: HYDROmorphone HCL 1 MG/ML SYRINGE (J1170) IV (11:30)
[2017-08-06] MEDS ORDERED: ONDANSETRON 4MG/2ML VIAL (J2405) IV ×2 (11:30)
[2017-08-06] MEDS: fentaNYL 100 MCG/2 ML INJECTION (J3010) IV (11:31)
[2017-08-06] MEDS: MEPERIDINE INJ 25 MG/ML VIAL (J2175) IV (11:31)
[2017-08-06] MEDS: PERCOCET 5MG/325MG TAB PO (12:25)
[2017-08-06] MEDS ORDERED: KETOROLAC 30 MG/ML VIAL (J1885) IV (15:00)
== END 2017-08-06 14:00 | disposition home or self-care (01) ==
LOC: M SDC 06:25
DX: K43.2 Incisional hernia without obstruction or gangrene (principal); M62.08 Separation of muscle (nontraumatic), other site; K66.0 Peritoneal adhesions (postprocedural) (postinfection); K91.71 Accidental puncture and laceration of a digestive system organ or structure during a digestive system procedure; I11.9 Hypertensive heart disease without heart failure; F41.9 Anxiety disorder, unspecified; F32.9 Major depressive disorder, single episode, unspecified; N18.3 Chronic kidney disease, stage 3 (moderate); K21.9 Gastro-esophageal reflux disease without esophagitis; J45.909 Unspecified asthma, uncomplicated; B18.2 Chronic viral hepatitis C; K59.01 Slow transit constipation; K44.9 Diaphragmatic hernia without obstruction or gangrene; M54.30 Sciatica, unspecified side; M19.90 Unspecified osteoarthritis, unspecified site; E55.9 Vitamin D deficiency, unspecified; M51.36 Other intervertebral disc degeneration, lumbar region; Z91.048 Other nonmedicinal substance allergy status; Z88.8 Allergy status to other drugs, medicaments and biological substances; F17.210 Nicotine dependence, cigarettes, uncomplicated
CPT/HCPCS: 49654

== ENCOUNTER → 2017-09-12 | Outpatient (CLI) | payer OTHER ==
[~2017-09-12] MED LIST changes: -ALBU17IN INH; +BUPIVACAINE HCL 0.25% 30 ML VIAL As Ordered; -COLA100C5 PO; -CYCL10TA PO; -FLUO20CA19 PO; -GABA-282 PO; -HYDR-3363 PO; -HYDR-3713 PO; -IBUP-1022 PO; +ISOVUE-M 300 61% 15ML VIAL (Q9967) As Ordered; +LIDOCAINE 1% SDV INJ 30 ML VIAL As Ordered; -LISI10TA4 PO; -METO1TAB7 PO; -NORV5TAB PO; -OMEP20CA3 PO; -OMEP40CA2 PO; -SENN1TAB10 PO; -TRAZ1TAB14 PO; +TRIAMCINOLONE ACETONIDE SUSP 40 MG/ML VIAL (J3301) As Ordered; -VITA100067 PO; +diazePAM 5 MG TAB As Ordered; +oxyCODONE 5MG TAB As Ordered
== END | disposition home or self-care (01) ==
LOC: M PAIN 11:30
DX: G89.29 Other chronic pain (principal); M46.1 Sacroiliitis, not elsewhere classified; I10 Essential (primary) hypertension; K21.9 Gastro-esophageal reflux disease without esophagitis; J45.909 Unspecified asthma, uncomplicated; B18.2 Chronic viral hepatitis C; F33.9 Major depressive disorder, recurrent, unspecified; G47.00 Insomnia, unspecified; E55.9 Vitamin D deficiency, unspecified; Z79.899 Other long term (current) drug therapy; Z79.82 Long term (current) use of aspirin; Z88.1 Allergy status to other antibiotic agents; Z91.048 Other nonmedicinal substance allergy status; F17.210 Nicotine dependence, cigarettes, uncomplicated
CPT/HCPCS: J3301

== ENCOUNTER → 2017-10-23 | Outpatient (REF) | payer OTHER | LOC: M SFHCPLAZ 10:32 | DX: B18.2 Chronic viral hepatitis C (principal) ==

== ENCOUNTER → 2017-10-25 | Outpatient (CLI) | payer OTHER ==
[2017-10-25 10:44] LABS: ALBUMIN 3.6 GM/DL (3.2-5.2); ALBUMIN/GLOBULIN RATIO 1.24 (1.00-1.93); ALKALINE PHOSPHATASE 91 U/L (45-117); ALT/SGPT 22 U/L (12-78); AST/SGOT 14 U/L (7-37); BILIRUBIN,DIRECT < 0.1 MG/DL (0.0-0.2); BILIRUBIN,TOTAL 0.3 MG/DL (0.2-1.0); TOTAL PROTEIN 6.5 GM/DL (6.4-8.2)
[2017-10-29 10:26] LABS: HEPATITIS C QUANTITATION HCV Not Detected IU/mL (.)
== END ==
LOC: M LAB 08:54
DX: B18.2 Chronic viral hepatitis C (principal)
CPT/HCPCS: 80076

== ENCOUNTER → 2017-10-30 | Outpatient (CLI) | payer OTHER ==
[2017-10-30 10:23] LABS: HEMATOCRIT 37.1 % (36.0-47.0); HEMOGLOBIN 12.4 g/dl (12.0-15.5); MEAN CORPUSCULAR HEMOGLOBIN 30.3 pg (27.0-33.0); MEAN CORPUSCULAR HGB CONC 33.4 g/dl (32.0-36.5); MEAN CORPUSCULAR VOLUME 90.7 fl (80.0-96.0); PLATELET COUNT, AUTOMATED 234 10^3/uL (150-450); RED BLOOD COUNT 4.09 10^6/uL (4.00-5.40); RED CELL DISTRIBUTION WIDTH 13.2 % (11.5-14.5); WHITE BLOOD COUNT 5.2 10^3/uL (4.0-10.0)
== END ==
LOC: M LAB 09:19
DX: K62.5 Hemorrhage of anus and rectum (principal)
CPT/HCPCS: 85027

== ENCOUNTER → 2017-10-30 | Outpatient (REF) | payer OTHER | LOC: M SFHCPLAZ 08:32 | DX: K62.5 Hemorrhage of anus and rectum (principal) ==

== ENCOUNTER 2017-11-02 19:17 | Emergency (ER) | payer OTHER ==
[2017-11-02 20:32] LABS: CONTROL LINE HCG INT CTR LINE PRESENT; HCG, SERUM QUALITATIVE NEGATIVE (NEGATIVE)
[2017-11-02 20:34] LABS: HEMATOCRIT 41.1 % (36.0-47.0); HEMOGLOBIN 14.3 g/dl (12.0-15.5); MEAN CORPUSCULAR HGB CONC 34.8 g/dl (32.0-36.5); MEAN CORPUSCULAR VOLUME 89.2 fl (80.0-96.0); PLATELET COUNT, AUTOMATED 290 10^3/uL (150-450); RED BLOOD COUNT 4.61 10^6/uL (4.00-5.40); RED CELL DISTRIBUTION WIDTH 13.2 % (11.5-14.5); WHITE BLOOD COUNT 7.8 10^3/uL (4.0-10.0)
[2017-11-02 20:39] LABS: AMPHETAMINES LEVEL URINE NEGATIVE (NEGATIVE); BARBITURATES URINE NEGATIVE (NEGATIVE); BENZODIAZEPINES URINE NEGATIVE (NEGATIVE); CANNABINOIDS URINE NEGATIVE (NEGATIVE); COCAINE METABOLITE URINE NEGATIVE (NEGATIVE); METHADONE URINE NEGATIVE (NEGATIVE); OPIATES URINE NEGATIVE (NEGATIVE); PHENCYCLIDINE URINE NEGATIVE (NEGATIVE)
[2017-11-02 20:49] LABS: ALBUMIN 4.1 GM/DL (3.2-5.2); ALBUMIN/GLOBULIN RATIO 1.21 (1.00-1.93); ALKALINE PHOSPHATASE 100 U/L (45-117); ALT/SGPT 30 U/L (12-78); ANION GAP 5 MEQ/L (8-16); AST/SGOT 34 U/L (7-37); BILIRUBIN,DIRECT < 0.1 MG/DL (0.0-0.2); BILIRUBIN,TOTAL 0.2 MG/DL (0.2-1.0); BLOOD UREA NITROGEN 14 MG/DL (7-18); CALCIUM LEVEL 8.9 MG/DL (8.5-10.1); CARBON DIOXIDE LEVEL 28 MEQ/L (21-32); CHLORIDE LEVEL 110 MEQ/L (98-107); CREATININE FOR GFR 1.15 MG/DL (0.55-1.30); ETHYL ALCOHOL (ETHANOL) 0.219 % (0.000-0.010); GLOMERULAR FILTRATION RATE 52.8 (>51); GLUCOSE, FASTING 108 MG/DL (70-100); POTASSIUM SERUM 4.2 MEQ/L (3.5-5.1); SALICYLATE LEVEL 3.7 MG/DL (5.0-30.0); SODIUM LEVEL 143 MEQ/L (136-145); TOTAL PROTEIN 7.5 GM/DL (6.4-8.2)
[2017-11-02 20:50] LABS: ACETAMINOPHEN LEVEL < 2.0 UG/ML (10.0-30.0)
== END 2017-11-03 04:08 | disposition home or self-care (01) ==
LOC: M ED 11-03 04:08
DX: F10.188 Alcohol abuse with other alcohol-induced disorder (principal); R45.851 Suicidal ideations; I10 Essential (primary) hypertension; K21.9 Gastro-esophageal reflux disease without esophagitis; F17.200 Nicotine dependence, unspecified, uncomplicated; Z88.8 Allergy status to other drugs, medicaments and biological substances; Z91.048 Other nonmedicinal substance allergy status; Z79.899 Other long term (current) drug therapy
CPT/HCPCS: G0480

== ENCOUNTER → 2017-12-26 | Outpatient (CLI) | payer OTHER | LOC: M LAB 10:52 | DX: M79.605 Pain in left leg (principal); M25.562 Pain in left knee | CPT/HCPCS: 73590 ==

== ENCOUNTER → 2018-01-14 | Outpatient (CLI) | payer OTHER | LOC: M CARPUL 12:18 | DX: J43.9 Emphysema, unspecified (principal) | CPT/HCPCS: 94060 ==

== ENCOUNTER → 2018-01-14 | Outpatient (CLI) | payer OTHER ==
[2018-01-14 14:01] LABS: BASO % 0.6 % (0.0-1.0); EOS # 0.1 10^3/uL (0.0-0.50); EOS % 0.9 % (0.0-3.0); HEMOGLOBIN 12.7 g/dl (12.0-15.5); IMMATURE GRANULOCYTE % 0.8 % (0-3.0); LYMPH # 1.6 10^3/uL (1.5-4.5); LYMPH % 23.9 % (24.0-44.0); MEAN CORPUSCULAR HEMOGLOBIN 30.8 pg (27.0-33.0); MEAN CORPUSCULAR HGB CONC 33.4 g/dl (32.0-36.5); MONO # 0.4 10^3/uL (0.0-0.8); MONO % 6.3 % (0.0-5.0); NEUTROPHILS # 4.5 10^3/uL (1.8-7.7); NEUTROPHILS % 67.5 % (36.0-66.0); PLATELET COUNT, AUTOMATED 214 10^3/uL (150-450); RED BLOOD COUNT 4.13 10^6/uL (4.00-5.40); RED CELL DISTRIBUTION WIDTH 12.3 % (11.5-14.5); WHITE BLOOD COUNT 6.6 10^3/uL (4.0-10.0)
[2018-01-14 14:22] LABS: ANION GAP 7 MEQ/L (8-16); BLOOD UREA NITROGEN 17 MG/DL (7-18); CALCIUM LEVEL 8.9 MG/DL (8.5-10.1); CARBON DIOXIDE LEVEL 32 MEQ/L (21-32); CHLORIDE LEVEL 104 MEQ/L (98-107); CREATININE FOR GFR 1.04 MG/DL (0.55-1.30); GLOMERULAR FILTRATION RATE 59.2 (>51); GLUCOSE, FASTING 86 MG/DL (70-100); POTASSIUM SERUM 4.7 MEQ/L (3.5-5.1); SODIUM LEVEL 143 MEQ/L (136-145)
== END ==
LOC: M LAB 13:12
DX: R07.9 Chest pain, unspecified (principal)
CPT/HCPCS: 80048

== ENCOUNTER 2018-02-06 08:02 | Day surgery (SDC) | payer OTHER ==
[~2018-02-06 08:02] MED LIST changes: -BUPIVACAINE HCL 0.25% 30 ML VIAL As Ordered; -ISOVUE-M 300 61% 15ML VIAL (Q9967) As Ordered; -LIDOCAINE 1% SDV INJ 30 ML VIAL As Ordered; +LIDOCAINE 2% INJ 100 MG/5 ML SDV (FOR ANES.) As Ordered; +PROPOFOL 200 MG/20 ML VIAL As Ordered; -TRIAMCINOLONE ACETONIDE SUSP 40 MG/ML VIAL (J3301) As Ordered; -diazePAM 5 MG TAB As Ordered; -oxyCODONE 5MG TAB As Ordered
[2018-02-06] MEDS: NS 1,000 ML IV (08:15)
[2018-02-06] MEDS ORDERED: PROPOFOL 200 MG/20 ML VIAL As Ordered ×2 (08:56→09:32)
== END 2018-02-06 10:08 | disposition home or self-care (01) ==
LOC: M OPP 08:02
DX: K62.5 Hemorrhage of anus and rectum (principal); R10.30 Lower abdominal pain, unspecified; K59.00 Constipation, unspecified; K64.8 Other hemorrhoids; I12.9 Hypertensive chronic kidney disease with stage 1 through stage 4 chronic kidney disease, or unspecified chronic kidney disease; Z86.19 Personal history of other infectious and parasitic diseases; K44.9 Diaphragmatic hernia without obstruction or gangrene; K21.9 Gastro-esophageal reflux disease without esophagitis; R12 Heartburn; R23.3 Spontaneous ecchymoses; M19.90 Unspecified osteoarthritis, unspecified site; M54.30 Sciatica, unspecified side; F41.9 Anxiety disorder, unspecified; F32.9 Major depressive disorder, single episode, unspecified; G43.909 Migraine, unspecified, not intractable, without status migrainosus; J45.909 Unspecified asthma, uncomplicated; R06.83 Snoring; N18.3 Chronic kidney disease, stage 3 (moderate); F17.210 Nicotine dependence, cigarettes, uncomplicated; Z88.8 Allergy status to other drugs, medicaments and biological substances; Z91.040 Latex allergy status; Z91.048 Other nonmedicinal substance allergy status; Z79.82 Long term (current) use of aspirin; Z79.899 Other long term (current) drug therapy; Z80.1 Family history of malignant neoplasm of trachea, bronchus and lung; Z80.8 Family history of malignant neoplasm of other organs or systems
CPT/HCPCS: 45378

== ENCOUNTER 2018-04-06 10:28 | Emergency (ER) | payer OTHER ==
[2018-04-06 11:05] LABS: BASO % 0.7 % (0.0-1.0); EOS # 0.1 10^3/uL (0.0-0.50); EOS % 2.9 % (0.0-3.0); HEMATOCRIT 40.6 % (36.0-47.0); HEMOGLOBIN 13.5 g/dl (12.0-15.5); IMMATURE GRANULOCYTE % 0.5 % (0-3.0); LYMPH # 1.4 10^3/uL (1.5-4.5); LYMPH % 35.1 % (24.0-44.0); MEAN CORPUSCULAR HEMOGLOBIN 30.8 pg (27.0-33.0); MEAN CORPUSCULAR HGB CONC 33.3 g/dl (32.0-36.5); MEAN CORPUSCULAR VOLUME 92.7 fl (80.0-96.0); MONO # 0.3 10^3/uL (0.0-0.8); MONO % 7.6 % (0.0-5.0); NEUTROPHILS # 2.2 10^3/uL (1.8-7.7); NEUTROPHILS % 53.2 % (36.0-66.0); PLATELET COUNT, AUTOMATED 222 10^3/uL (150-450); RED BLOOD COUNT 4.38 10^6/uL (4.00-5.40); WHITE BLOOD COUNT 4.1 10^3/uL (4.0-10.0)
[2018-04-06] MEDS: LISINOPRIL 10 MG TAB PO (11:09)
[2018-04-06] MEDS: IPRATROPIUM 0.5MG/ALBUTEROL 2.5MG INH SOL UD 3ML (DUONEB)(J7620) NEB (11:19)
[2018-04-06 11:29] LABS: LACTIC ACID SEPSIS PROTOCOL 0.7 MMOL/L (0.4-2.0)
[2018-04-06 11:34] LABS: ALBUMIN 3.3 GM/DL (3.2-5.2); ALKALINE PHOSPHATASE 125 U/L (45-117); ALT/SGPT 27 U/L (12-78); ANION GAP 5 MEQ/L (8-16); AST/SGOT 20 U/L (7-37); BILIRUBIN,DIRECT 0.1 MG/DL (0.0-0.2); BILIRUBIN,TOTAL 0.4 MG/DL (0.2-1.0); BLOOD UREA NITROGEN 13 MG/DL (7-18); CALCIUM LEVEL 8.6 MG/DL (8.5-10.1); CARBON DIOXIDE LEVEL 28 MEQ/L (21-32); CHLORIDE LEVEL 111 MEQ/L (98-107); CPK CREATINE PHOSPHOKINASE 137 U/L (26-192); CREATININE FOR GFR 0.86 MG/DL (0.55-1.30); GLOMERULAR FILTRATION RATE > 60.0 (>51); GLUCOSE, FASTING 91 MG/DL (70-100); LIPASE 301 U/L (73-393); NT-PRO BNP 442 PG/ML (<125); POTASSIUM SERUM 4.3 MEQ/L (3.5-5.1); SODIUM LEVEL 144 MEQ/L (136-145); TOTAL PROTEIN 6.6 GM/DL (6.4-8.2); TROPONIN I < 0.02 NG/ML (< 0.10)
== END 2018-04-06 12:28 | disposition home or self-care (01) ==
LOC: M ED 10:28
DX: J06.9 Acute upper respiratory infection, unspecified (principal); I10 Essential (primary) hypertension; K21.9 Gastro-esophageal reflux disease without esophagitis; B19.20 Unspecified viral hepatitis C without hepatic coma; F41.9 Anxiety disorder, unspecified; F32.9 Major depressive disorder, single episode, unspecified
CPT/HCPCS: 71045

== ENCOUNTER 2018-05-16 11:59 | Emergency (ER) | payer OTHER ==
[2018-05-16 13:32] LABS: BASO % 0.4 % (0.0-1.0); EOS # 0.1 10^3/uL (0.0-0.50); HEMATOCRIT 40.9 % (36.0-47.0); HEMOGLOBIN 14.2 g/dl (12.0-15.5); IMMATURE GRANULOCYTE % 0.6 % (0-3.0); LYMPH # 2.1 10^3/uL (1.5-4.5); LYMPH % 29.9 % (24.0-44.0); MEAN CORPUSCULAR HGB CONC 34.7 g/dl (32.0-36.5); MEAN CORPUSCULAR VOLUME 89.3 fl (80.0-96.0); MONO # 0.5 10^3/uL (0.0-0.8); MONO % 7.2 % (0.0-5.0); NEUTROPHILS # 4.3 10^3/uL (1.8-7.7); NEUTROPHILS % 60.9 % (36.0-66.0); PLATELET COUNT, AUTOMATED 227 10^3/uL (150-450); RED BLOOD COUNT 4.58 10^6/uL (4.00-5.40); RED CELL DISTRIBUTION WIDTH 12.6 % (11.5-14.5); WHITE BLOOD COUNT 7.1 10^3/uL (4.0-10.0)
[2018-05-16 13:55] LABS: ALBUMIN 3.4 GM/DL (3.2-5.2); ALBUMIN/GLOBULIN RATIO 1.03 (1.00-1.93); ALKALINE PHOSPHATASE 108 U/L (45-117); ALT/SGPT 22 U/L (12-78); ANION GAP 7 MEQ/L (8-16); AST/SGOT 18 U/L (7-37); BILIRUBIN,DIRECT 0.1 MG/DL (0.0-0.2); BILIRUBIN,TOTAL 0.3 MG/DL (0.2-1.0); BLOOD UREA NITROGEN 24 MG/DL (7-18); CALCIUM LEVEL 8.7 MG/DL (8.5-10.1); CARBON DIOXIDE LEVEL 29 MEQ/L (21-32); CHLORIDE LEVEL 103 MEQ/L (98-107); CREATININE FOR GFR 0.97 MG/DL (0.55-1.30); GLOMERULAR FILTRATION RATE > 60.0 (>51); GLUCOSE, FASTING 91 MG/DL (70-100); LIPASE 224 U/L (73-393); POTASSIUM SERUM 4.4 MEQ/L (3.5-5.1); SODIUM LEVEL 139 MEQ/L (136-145); TOTAL PROTEIN 6.7 GM/DL (6.4-8.2)
[2018-05-16] MEDS: NS 1,000 ML IV (15:29)
[2018-05-16] MEDS: PANTOPRAZOLE 40MG INJ (PROTONIX) (C9113) IV (15:29)
[2018-05-16] MEDS: ONDANSETRON 4MG/2ML VIAL (J2405) IV (15:29)
[2018-05-16] MEDS: KETOROLAC 30 MG/ML VIAL (J1885) IV (15:29)
== END 2018-05-16 16:49 | disposition home or self-care (01) ==
LOC: M ED 11:59
DX: K21.9 Gastro-esophageal reflux disease without esophagitis (principal); K80.50 Calculus of bile duct without cholangitis or cholecystitis without obstruction; I10 Essential (primary) hypertension; J45.909 Unspecified asthma, uncomplicated; F17.210 Nicotine dependence, cigarettes, uncomplicated
CPT/HCPCS: C9113

== ENCOUNTER → 2018-06-12 | Outpatient (REF) | payer OTHER ==
[~2018-06-12] MED LIST changes: +ADV250INH INH; +ADVA45AE INH; +ALBU17IN INH; +AMLO5TAB6 PO; +ASPI1TAB PO; +BACL1TAB9 PO; +BUSP10TA; +COLA100C5 PO; +CYCL10TA PO; +ESCI10TA2 PO; +FLUO20CA19 PO; +FLUT1INH2 INH; +GABA-843 PO; +GABA-845 PO; +HYDR-3363 PO; +HYDR-3713 PO; +IBUP-1022 PO; +ISOS30TA4 PO; -LIDOCAINE 2% INJ 100 MG/5 ML SDV (FOR ANES.) As Ordered; +LISI10TA4 PO; +METO1TAB7 PO; +MIRA3350 PO; +NORV5TAB PO; +OMEP20CA3 PO; +OMEP40CA2 PO; +PANT40TA3 PO; +PARO10TA3 PO; +PROAAER10 INH; -PROPOFOL 200 MG/20 ML VIAL As Ordered; +SENN1TAB10 PO; +TRAZ1TAB14 PO; +VENTAER INH; +VITA100067 PO; +ZEPA1TAB PO
[2018-06-12 18:15] LABS: CALCIUM LEVEL 9.3 MG/DL (8.5-10.1); CREATININE FOR GFR 1.03 MG/DL (0.55-1.30); GLOMERULAR FILTRATION RATE 59.7 (>51); POTASSIUM SERUM 4.5 MEQ/L (3.5-5.1)
== END ==
LOC: M SFHCPLAZ 14:48
PROVIDERS: ATTEND Family Medicine
DX: I10 Essential (primary) hypertension (principal)

== ENCOUNTER → 2018-09-23 | Outpatient (CLI) | payer OTHER ==
[~2018-09-23] MED LIST changes: -ASPI1TAB PO; +ASPI81TA26 PO; -BUSP10TA; +BUSP10TA PO; +MIRT1TAB PO; +OXYC5CAP56 PO; +TRAZ-189 PO
--- NOTE | 2018-09-23 14:36 | REP ---
MRCP: MRCP exam is accomplished utilizing multiple heavily T2-weighted sequences in the axial and coronal planes. MIP reconstruction images are performed. There is mild central dilatation of the intrahepatic bile ducts. The common bile duct is slightly dilated, 8 to 9 mm in maximum diameter. There is no definite evidence of cholelithiasis or choledocholithiasis. Gallbladder is mildly distended with no gallbladder wall edema. There may be a mild stricture with narrowing of the distal end of the common bile duct at the ampulla of Vater. Pancreatic duct is not dilated. Other visualized upper abdominal structures appear unremarkable. No free fluid is seen in the visualized abdomen. IMPRESSION: Mild dilatation of the common bile duct 8 to 9 mm in maximum diameter. Mild prominence of the central intrahepatic ducts. Gallbladder appears unremarkable. There is no definite cholelithiasis or choledocholithiasis. Distal common bile duct demonstrates a somewhat abrupt transition zone and decrease in caliber possibly indicating a mild stricture at that location. Pancreatic duct is normal. Electronically Signed by Danish Gil MD 09/23/2018 04:27 P
== END ==
LOC: M RAD 08:09
PROVIDERS: ATTEND Internal Medicine Gastroenterology
DX: R93.3 Abnormal findings on diagnostic imaging of other parts of digestive tract (principal)

== ENCOUNTER 2018-10-04 14:49 | Emergency (ER) | payer OTHER ==
[2018-10-04 15:08] LABS: BASO % 0.3 % (0.0-1.0); EOS % 0.4 % (0.0-3.0); HEMATOCRIT 38.8 % (36.0-47.0); LYMPH # 1.7 10^3/uL (1.5-4.5); LYMPH % 23.1 % (24.0-44.0); MEAN CORPUSCULAR HEMOGLOBIN 31.8 pg (27.0-33.0); MEAN CORPUSCULAR HGB CONC 33.5 g/dl (32.0-36.5); MEAN CORPUSCULAR VOLUME 94.9 fl (80.0-96.0); MONO # 0.3 10^3/uL (0.0-0.8); MONO % 3.7 % (0.0-5.0); NEUTROPHILS # 5.3 10^3/uL (1.8-7.7); NEUTROPHILS % 72.1 % (36.0-66.0); PLATELET COUNT, AUTOMATED 241 10^3/uL (150-450); RED BLOOD COUNT 4.09 10^6/uL (4.00-5.40); WHITE BLOOD COUNT 7.3 10^3/uL (4.0-10.0)
[2018-10-04] MEDS ORDERED: ALBUTEROL SULFATE 2.5 MG/0.5 ML INH NEB SOLN INH ONE (15:45)
[2018-10-04] MEDS ORDERED: IPRATROPIUM 0.5MG/ALBUTEROL 2.5MG INH SOL UD 3ML (DUONEB)(J7620) NEB ONE (15:45)
[2018-10-04] MEDS ORDERED: dexameTHASONE 20 MG/5 ML VIAL (J1100) IV ONE (15:45)
[2018-10-04 15:47] LABS: ALBUMIN 3.4 GM/DL (3.2-5.2); ALT/SGPT 21 U/L (12-78); BILIRUBIN,DIRECT < 0.1 MG/DL (0.0-0.2); BILIRUBIN,TOTAL 0.3 MG/DL (0.2-1.0); BLOOD UREA NITROGEN 20 MG/DL (7-18); CALCIUM LEVEL 8.7 MG/DL (8.5-10.1); CARBON DIOXIDE LEVEL 32 MEQ/L (21-32); CHLORIDE LEVEL 106 MEQ/L (98-107); CPK CREATINE PHOSPHOKINASE 95 U/L (26-192); CREATININE FOR GFR 1.28 MG/DL (0.55-1.30); GLOMERULAR FILTRATION RATE 46.4 (>51); GLUCOSE, FASTING 103 MG/DL (70-100); LIPASE 317 U/L (73-393); MB/CK RELATIVE INDEX 1.26 (< OR =4); NT-PRO BNP 1207 PG/ML (<125); POTASSIUM SERUM 4.4 MEQ/L (3.5-5.1); SODIUM LEVEL 141 MEQ/L (136-145); TOTAL PROTEIN 6.6 GM/DL (6.4-8.2); TROPONIN I < 0.02 NG/ML (< 0.10)
--- NOTE | 2018-10-04 17:11 | REP ---
HISTORY: Chest pain. COMPARISON: Multiple, the latest 04/06/2018, also portable. The technique utilized in obtaining the radiograph has magnified the cardiac silhouette and accentuated the interstitial markings. The superior mediastinal structures are midline. The cardiac silhouette is unremarkable in size, shape, and position. The diaphragmatic surfaces of the lungs are regular, and the costophrenic angles are clear. The pulmonary montero are clear. The imaged osseous structures are intact. IMPRESSION: There is no acute cardiopulmonary disease. Electronically Signed by Robles Presley DO 10/10/2018 02:38 P
--- NOTE | 2018-10-04 17:29 | REP ---
CT brain without contrast: History: Headache. Comparison head CT study January 02, 2017. CT findings: Digital lateral rail grinder radiograph is unremarkable. The maxilla is edentulous. Bone window settings demonstrate minimal vascular calcification in the distal carotid arteries bilaterally. No bony calvarial lesion is seen. No intraorbital abnormalities observed. The lateral, third, fourth ventricles are normal in size and position. Gil-white differentiation pattern is normal above below the tentorium. There is no evidence of intracranial hemorrhage. No infarct, mass, extra-axial fluid collection or midline shift is seen. Impression: Minimal vascular calcification. Otherwise negative CT brain. Electronically Signed by Jose Antonio Castrejon MD 10/04/2018 08:05 P
[2018-10-04 17:30] VITALS: BP 173/104
[2018-10-04] MEDS ORDERED: PRED20TA PO (17:58)
--- NOTE | 2018-10-04 19:24 | ECGEPIP ---
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
== END 2018-10-04 18:11 | disposition home or self-care (01) ==
LOC: M ED 14:49
DX: J44.1 Chronic obstructive pulmonary disease with (acute) exacerbation (principal); I10 Essential (primary) hypertension; J45.909 Unspecified asthma, uncomplicated; K21.9 Gastro-esophageal reflux disease without esophagitis; B18.2 Chronic viral hepatitis C; F17.210 Nicotine dependence, cigarettes, uncomplicated; Z79.51 Long term (current) use of inhaled steroids; Z79.82 Long term (current) use of aspirin; Z79.899 Other long term (current) drug therapy; Z91.040 Latex allergy status; Z91.09 Other allergy status, other than to drugs and biological substances
CPT/HCPCS: 36415; 70450; 71045; 80048; 80076; 82550; 82553; 83690; 83880; 84443; 85025; 93005; 93041; 94640; 94760; 96374; 99285; J1100

== ENCOUNTER 2018-10-10 10:34 | Day surgery (SDC) | payer OTHER ==
[~2018-10-10] VITALS: Ht 149.9 cm; Wt 60.3 kg
[~2018-10-10 10:34] MED LIST changes: +PRED20TA PO
[2018-10-10] MEDS ORDERED: NS 1,000 ML IV ONE (10:45)
[2018-10-10] MEDS ORDERED: hydrALAZINE INJ 20 MG/ML VIAL As Ordered ONE (13:24)
[2018-10-10] MEDS ORDERED: LIDOCAINE 2% INJ 100 MG/5 ML SDV (FOR ANES.) As Ordered ONE (13:24)
[2018-10-10] MEDS ORDERED: PROPOFOL 200 MG/20 ML VIAL As Ordered ONE (13:24)
[2018-10-10] MEDS ORDERED: fentaNYL 100 MCG/2 ML INJECTION (J3010) As Ordered ONE (13:24)
--- NOTE | 2018-10-10 13:28 | ROOR ---
Patient Name: Ariadna Scott Procedure Date: 10/10/2018 1:13 PM Date of : 1965 Age: 53 Room: [facility] Gender: Female Note Status: Finalized Procedure: Upper GI endoscopy Indications: Epigastric abdominal pain, Nausea Providers: Deo EPPERSON MD Referring MD: Arthur DEWEY MD Requesting Provider: Medicines: Monitored Anesthesia Care Complications: No immediate complications. Procedure: Pre-Anesthesia Assessment: - The heart rate, respiratory rate, oxygen saturations, blood pressure, adequacy of pulmonary ventilation, and response to care were monitored throughout the procedure. The Endoscope was introduced through the mouth, and advanced to the third part of duodenum. The upper GI endoscopy was accomplished without difficulty. The patient tolerated the procedure well. Findings: The esophagus was normal. The stomach was normal. The examined duodenum was normal. Biopsies were taken with a cold forceps in the gastric antrum for Helicobacter pylori testing. Impression: - Normal esophagus. - Normal stomach. Slight mucosal atrophy without definite gastritis noted in body of stomach.- Biopsies were taken with a cold forceps for Helicobacter pylori testing. - Normal examined duodenum. Recommendation: - Return to my office in 3 weeks. Deo Epperson MD Deo EPPERSON MD 10/10/2018 1:27:49 PM Electronically signed by Deo EPPERSON MD Number of Addenda: 0 Note Initiated On: 10/10/2018 1:13 PM Estimated Blood Loss: Estimated blood loss: none.
--- NOTE | 2018-10-10 13:42 | ROOR ---
Patient Name: Ariadna Scott Procedure Date: 10/10/2018 1:14 PM Date of : 1965 Age: 53 Room: [facility] Gender: Female Note Status: Finalized Procedure: Colonoscopy Indications: Generalized abdominal pain, Change in bowel habits Providers: Deo EPPERSON MD Referring MD: Arthur DEWEY MD Requesting Provider: Medicines: Monitored Anesthesia Care Complications: No immediate complications. Procedure: Pre-Anesthesia Assessment: - The heart rate, respiratory rate, oxygen saturations, blood pressure, adequacy of pulmonary ventilation, and response to care were monitored throughout the procedure. The Colonoscope was introduced through the anus and advanced to 10 cm into the ileum. The colonoscopy was performed without difficulty. The patient tolerated the procedure well. The quality of the bowel preparation was good. Findings: The perianal and digital rectal examinations were normal. A 3 mm polyp was found in the sigmoid colon. The polyp was sessile. The polyp was removed with a jumbo cold forceps. Resection and retrieval were complete. Retroflexion in the right colon was performed. The exam was otherwise normal throughout the examined colon. The terminal ileum appeared normal. Internal hemorrhoids were found during retroflexion. The hemorrhoids were small. Impression: - One 3 mm polyp in the sigmoid colon, removed with a jumbo cold forceps. Resected and retrieved. - Internal hemorrhoids. - The colon is otherwise normal. - The examined portion of the ileum was normal. Recommendation: - If the pathology report reveals adenomatous tissue, then repeat the colonoscopy for surveillance in 5 years. - Return to my office in 2 weeks. - To discuss todays findings, and the MRI done last week, my office will call you in the next few days to schedule a follow up appointment. Deo Epperson MD Deo EPPERSON MD 10/10/2018 1:42:04 PM Electronically signed by Deo EPPERSON MD Number of Addenda: 0 Note Initiated On: 10/10/2018 1:14 PM Estimated Blood Loss: Estimated blood loss: none.
[2018-10-10 14:05] VITALS: BP 144/82
== END 2018-10-10 14:15 | disposition home or self-care (01) ==
LOC: M OPP 10:34
PROVIDERS: ATTEND Internal Medicine Gastroenterology
DX: D12.5 Benign neoplasm of sigmoid colon (principal); K64.8 Other hemorrhoids; B96.81 Helicobacter pylori [H. pylori] as the cause of diseases classified elsewhere; K29.70 Gastritis, unspecified, without bleeding; R10.84 Generalized abdominal pain; R19.4 Change in bowel habit; R10.13 Epigastric pain; R11.0 Nausea
CPT/HCPCS: 43239; 45380; 88305; J3010

== ENCOUNTER 2018-11-13 11:27 | Day surgery (SDC) | payer OTHER ==
[~2018-11-13] VITALS: Ht 124.5 cm; Wt 59.4 kg
[~2018-11-13 11:27] MED LIST changes: +LR 1,000 ML IV ONE; +NS 1,000 ML IV ONE; +TOPA1TAB PO
[2018-11-13] MEDS ORDERED: ROCURONIUM BROMIDE 50 MG/5 ML VIAL As Ordered ONE (13:46)
[2018-11-13] MEDS ORDERED: ONDANSETRON 4MG/2ML VIAL (J2405) As Ordered ONE ×2 (13:46→16:23)
[2018-11-13] MEDS ORDERED: PROPOFOL 200 MG/20 ML VIAL As Ordered ONE (13:46)
[2018-11-13] MEDS ORDERED: LIDOCAINE 2% INJ 100 MG/5 ML SDV (FOR ANES.) As Ordered ONE (13:46)
[2018-11-13] MEDS ORDERED: dexameTHASONE 4 MG/ML 1ML VIAL (J1100) As Ordered ONE (13:46)
[2018-11-13] MEDS ORDERED: fentaNYL 100 MCG/2 ML INJECTION (J3010) As Ordered ONE ×3 (13:50→16:47)
[2018-11-13] MEDS ORDERED: MIDAZOLAM INJ 2 MG/2 ML VIAL (J2250) As Ordered ONE (13:51)
[2018-11-13] MEDS ORDERED: ISOVUE-300 61% 50ML VIAL (Q9967) As Ordered ONE (14:03)
[2018-11-13] MEDS ORDERED: SUGAMMADEX SODIUM 500 MG/5 ML VIAL (BRIDION) As Ordered ONE (15:07)
--- NOTE | 2018-11-13 16:22 | ROOR ---
Patient Name: Ariadna Scott Procedure Date: 11/13/2018 2:02 PM Date of : 1965 Age: 53 Room: [facility] Gender: Female Note Status: Finalized Procedure: ERCP Indications: Abdominal pain of suspected biliary origin, Abnormal MRCP, Biliary dilation on Ultrasound, Elevated liver enzymes Providers: Deo WRIGHT MD Referring MD: JASWINDER TONG MD Requesting Provider: Medicines: Monitored Anesthesia Care Complications: No immediate complications. Procedure: Pre-Anesthesia Assessment: - The heart rate, respiratory rate, oxygen saturations, blood pressure, adequacy of pulmonary ventilation, and response to care were monitored throughout the procedure. The Duodenoscope was introduced through the mouth, and advanced to the duodenum and used to inject contrast into the bile duct. The ERCP was accomplished without difficulty. The patient tolerated the procedure well. Findings: The rubber insulator film was normal. The esophagus was successfully intubated under direct vision. The scope was advanced to a small major papilla in the descending duodenum without detailed examination of the pharynx, larynx and associated structures, and upper GI tract. The upper GI tract was grossly normal. A straight Roadrunner wire was passed into the biliary tree. The bile duct was then deeply cannulated over the guidewire. Contrast was injected. I personally interpreted the bile duct images. Ductal flow of contrast was adequate. Image quality was adequate. Opacification of the entire opacified area was successful. The maximum diameter of the ducts was 11 mm. The lower third of the main bile duct contained a single mild stenosis 5 mm in length. The biliary orifice was stenotic. This appeared benign. An 8 mm biliary sphincterotomy was made with a monofilament traction (standard) sphincterotome using ERBE electrocautery. There was no post-sphincterotomy bleeding. The biliary tree was swept with a 12 mm balloon starting at the bifurcation. Nothing was found. Cells for cytology were obtained by brushing in the lower third of the main bile duct. Impression: - Biliary papillary stenosis, benign. - A single mild biliary stenosis/smooth taper of the distal third of the main duct to a pinpoint papilla was found in the lower third of the main bile duct. The stricture was benign appearing. Cytology brushing performed. - A biliary sphincterotomy was performed. - The biliary tree was swept and nothing was found. Recommendation: - Observe patient's clinical course. - Await cytology results. - Return to my office in 2 weeks. Deo Wright MD Deo WRIGHT MD 11/13/2018 4:22:06 PM Electronically signed by Deo WRIGHT MD Number of Addenda: 0 Note Initiated On: 11/13/2018 2:02 PM Estimated Blood Loss: Estimated blood loss: none.
[2018-11-13] MEDS ORDERED: ONDANSETRON 4MG/2ML VIAL (J2405) IV PRN (17:00)
[2018-11-13] MEDS ORDERED: fentaNYL 100 MCG/2 ML INJECTION (J3010) IV PRN (17:00)
[2018-11-13] MEDS ORDERED: LR 1,000 ML IV SCH (17:00)
[2018-11-13] MEDS ORDERED: PERCOCET 5MG/325MG TAB PO PRN (17:00)
[2018-11-13] MEDS ORDERED: METOCLOPRAMIDE INJ 10MG/2ML VIAL (J2765) IV PRN (17:00)
[2018-11-13] MEDS ORDERED: ALBUTEROL SULFATE 2.5 MG/0.5 ML INH NEB SOLN As Ordered ONE (17:29)
[2018-11-13] MEDS ORDERED: ALBUTEROL SULFATE 2.5 MG/0.5 ML INH NEB SOLN INH SCH (17:45)
[2018-11-13] MEDS ORDERED: PERCOCET 5MG/325MG TAB As Ordered ONE (18:30)
--- NOTE | 2018-11-13 19:01 | REP ---
ERCP: 37 intraprocedural views. History: Dilated bile duct. Stricture of bile duct. Pain. 3 minutes and 53 seconds of fluoroscopy time is reported. Findings: A sequence of 37 last image hold fluoroscopically obtained spot radiographs of the abdomen taken during endoscopy document endoscopic cannulation, contrast injection, and balloon catheter manipulation of the common bile duct. There is some contrast within the pancreatic duct as well on several images. Electronically Signed by Jose Antonio Castrejon MD 11/14/2018 10:06 A
[2018-11-13 19:15] VITALS: BP 148/88
== END 2018-11-13 19:20 | disposition home or self-care (01) ==
LOC: M SDC 11:27
PROVIDERS: ATTEND Internal Medicine Gastroenterology
DX: K83.1 Obstruction of bile duct (principal); R10.9 Unspecified abdominal pain; R74.8 Abnormal levels of other serum enzymes; K83.8 Other specified diseases of biliary tract; I10 Essential (primary) hypertension; E78.5 Hyperlipidemia, unspecified; J45.909 Unspecified asthma, uncomplicated; K21.9 Gastro-esophageal reflux disease without esophagitis; K44.9 Diaphragmatic hernia without obstruction or gangrene; F41.9 Anxiety disorder, unspecified; F32.9 Major depressive disorder, single episode, unspecified; F17.210 Nicotine dependence, cigarettes, uncomplicated; Z79.82 Long term (current) use of aspirin; Z91.040 Latex allergy status; Z88.8 Allergy status to other drugs, medicaments and biological substances
CPT/HCPCS: 43262; 74330; 88104; C1887; J1100; J2250; J2405; J3010; Q9967

== ENCOUNTER → 2018-12-04 | Outpatient (REF) | payer OTHER ==
[~2018-12-04] MED LIST changes: -LR 1,000 ML IV ONE; -NS 1,000 ML IV ONE; -OMEP20CA3 PO; +OMEP20CA4 PO
== END ==
LOC: M LAB REF 13:18
PROVIDERS: ATTEND Internal Medicine Gastroenterology
DX: R11.0 Nausea (principal)

== ENCOUNTER → 2018-12-09 | Outpatient (CLI) | payer OTHER ==
[~2018-12-09] MED LIST changes: +OMEP1CAP73 PO; -OMEP20CA4 PO; -OMEP40CA2 PO; +OMEP40CA97 PO; +TRUL3TAB PO
--- NOTE | 2018-12-09 09:23 | REP ---
Abdominal right upper quadrant ultrasound for nausea: Comparison is 05/16/2018. There is no cholelithiasis, gallbladder wall thickening or pericholecystic fluid. There is no intrahepatic or extrahepatic biliary duct dilatation. The common biliary duct measures up to 3.1 mm. On the prior study the common biliary duct was mildly dilated measuring up to 0.9 cm. However, the common biliary duct is not dilated on the study today. The hepatic parenchyma is homogeneous and otherwise unremarkable. The visualized areas of the pancreas are unremarkable. There is no right upper quadrant free fluid. The the right kidney is in the low normal size range measuring 8.9 x 5.0 x 3.6 cm. Previously, the right kidney measured 9.3 x 4.2 x 3.6 cm, There is no right renal hydronephrosis, calculus, mass or cyst. Impression: Essentially negative abdominal right upper quadrant ultrasound. Electronically Signed by Danish Alvarado MD 12/09/2018 09:15 A
== END ==
LOC: M RAD 06:38
PROVIDERS: ATTEND Internal Medicine Gastroenterology
DX: R11.0 Nausea (principal)

== ENCOUNTER → 2019-02-10 | Outpatient (CLI) | payer OTHER ==
[~2019-02-10] MED LIST changes: +BUSP30TA PO; +ESCI20TA PO; +LISI-538 PO; +TRAM50TA2 PO
--- NOTE | 2019-02-10 11:38 | REP ---
HIDA SCAN WITH GALLBLADDER EJECTION FRACTION: Following the intravenous administration of 6.6 mCi of technetium-99m mebrofenin, multiple images of the right upper quadrant are performed every 5 minutes for a period of the 1 hour. Gallbladder is visualized at 10 minutes post injection. There is biliary to bowel transit at 30 minutes post injection. There is no scintigraphic evidence of cholecystitis. At the 1 hour jonh 8 ounces of Ensure Enlive is ingested and further imaging performed for 1 hour. Gallbladder activity is measured. Gallbladder ejection fraction is calculated to be 92%. IMPRESSION: Normal gallbladder ejection fraction. Electronically Signed by Danish Gil MD 02/10/2019 04:12 P
== END ==
LOC: M RAD 07:38
PROVIDERS: ATTEND Internal Medicine Gastroenterology
DX: K82.9 Disease of gallbladder, unspecified (principal); R11.0 Nausea
CPT/HCPCS: 78227; A9537; J2805

== ENCOUNTER → 2019-02-19 | Outpatient (REF) | payer OTHER ==
[~2019-02-19] MED LIST changes: -BUSP30TA PO; -ESCI20TA PO; -LISI-538 PO; -OMEP1CAP73 PO; +OMEP20CA4 PO; +OMEP40CA2 PO; -OMEP40CA97 PO; -TRAM50TA2 PO; -TRUL3TAB PO
[2019-02-19 14:02] LABS: APPEARANCE, URINE HAZY (CLEAR); BACTERIA, URINE AUTO NEGATIVE (NEGATIVE); BILIRUBIN, URINE AUTO NEGATIVE (NEGATIVE); BLOOD, URINE BLOOD 1+ (NEGATIVE); COLOR, URINE YELLOW (YELLOW); GLUCOSE, URINE (UA) AUTO NEGATIVE (NEGATIVE); KETONE, URINE AUTO NEGATIVE (NEGATIVE); LEUKOCYTE ESTERASE, URINE AUTO NEGATIVE (NEGATIVE); MUCUS, URINE SMALL (NEGATIVE); NITRITE, URINE AUTO NEGATIVE (NEGATIVE); PROTEIN, URINE AUTO NEGATIVE (NEGATIVE); RBC, URINE AUTO 5 /HPF (0-3); SPECIFIC GRAVITY URINE AUTO 1.019 (1.002-1.035); SQUAMOUS EPITHELIAL CELL UR AU 9 /HPF (0-6); UROBILINOGEN, URINE AUTO 0.2 mg/dL (0.0-2.0); WBC, URINE AUTO 2 /HPF (0-3)
== END ==
LOC: M LAB REF 12:27
PROVIDERS: ATTEND Nurse Practitioner Family
DX: I10 Essential (primary) hypertension (principal)

== ENCOUNTER → 2019-02-19 | Outpatient (REF) | payer OTHER ==
[2019-02-19 13:59] LABS: BASO # 0.1 10^3/uL (0.0-0.2); BASO % 0.8 % (0.0-1.0); EOS # 0.1 10^3/uL (0.0-0.5); EOS % 1.6 % (0.0-3.0); HEMOGLOBIN 13.2 g/dl (12.0-15.5); LYMPH # 2.6 10^3/uL (1.5-5.0); LYMPH % 42.6 % (24.0-44.0); MEAN CORPUSCULAR HEMOGLOBIN 31.7 pg (27.0-33.0); MEAN CORPUSCULAR VOLUME 95.9 fl (80.0-96.0); MONO # 0.5 10^3/uL (0.0-0.8); MONO % 8.4 % (0.0-5.0); NEUTROPHILS # 2.8 10^3/uL (1.5-8.5); NEUTROPHILS % 46.1 % (36.0-66.0); PLATELET COUNT, AUTOMATED 212 10^3/uL (150-450); RED BLOOD COUNT 4.17 10^6/uL (4.00-5.40); WHITE BLOOD COUNT 6.1 10^3/uL (4.0-10.0)
[2019-02-19 14:06] LABS: ALBUMIN 3.5 GM/DL (3.2-5.2); ALT/SGPT 22 U/L (12-78); BILIRUBIN,TOTAL 0.3 MG/DL (0.2-1.0); BLOOD UREA NITROGEN 22 MG/DL (7-18); CALCIUM LEVEL 9.1 MG/DL (8.5-10.1); CARBON DIOXIDE LEVEL 29 MEQ/L (21-32); CHLORIDE LEVEL 107 MEQ/L (98-107); CHOLESTEROL LEVEL 230 MG/DL (<200); CHOLESTEROL RISK RATIO 3.194 (<5); CREATININE FOR GFR 1.06 MG/DL (0.55-1.30); FREE T4 0.83 NG/DL (0.76-1.46); GLOMERULAR FILTRATION RATE 57.5 (>51); GLUCOSE, FASTING 91 MG/DL (70-100); HDL CHOLESTEROL 72 MG/DL (>40); NON-HDL-C 158 MG/DL; POTASSIUM SERUM 4.8 MEQ/L (3.5-5.1); SODIUM LEVEL 141 MEQ/L (136-145); TOTAL 25(OH) VITAMIN D 23.7 NG/ML (30.0-100.0); TOTAL PROTEIN 6.5 GM/DL (6.4-8.2); TRIGLYCERIDES LEVEL 474 MG/DL (<150)
== END ==
LOC: M LAB REF 12:33
PROVIDERS: ATTEND Nurse Practitioner Family
DX: Z13.220 Encounter for screening for lipoid disorders (principal); Z13.9 Encounter for screening, unspecified; I10 Essential (primary) hypertension; E55.9 Vitamin D deficiency, unspecified

== ENCOUNTER 2019-06-13 09:22 | Inpatient (IN) | payer OTHER ==
[~2019-06-13] VITALS: Ht 154.9 cm; Wt 59.8 kg
[~2019-06-13 09:22] MED LIST changes: +OMEP1CAP73 PO; -OMEP20CA4 PO; -OMEP40CA2 PO; +OMEP40CA97 PO
[2019-06-13] MEDS ORDERED: TRUL3TAB PO (09:38)
[2019-06-13] MEDS ORDERED: NS 1,000 ML IV ONE ×2 (10:15→14:00)
[2019-06-13] MEDS ORDERED: PANTOPRAZOLE 40MG INJ (PROTONIX) (C9113) IV ONE (10:15)
[2019-06-13] MEDS ORDERED: GI COCKTAIL 50ML BTL(HYOSCYAMINE/MAALOX/LIDOCAINE VISCOUS)(1:3:1) PO ONE (10:15)
[2019-06-13 10:54] LABS: BASO % 0.3 % (0.0-1.0); EOS % 0.1 % (0.0-3.0); HEMATOCRIT 35.2 % (36.0-47.0); HEMOGLOBIN 12.1 g/dl (12.0-15.5); LYMPH # 1.5 10^3/uL (1.5-5.0); LYMPH % 10.1 % (24.0-44.0); MEAN CORPUSCULAR HEMOGLOBIN 31.8 pg (27.0-33.0); MEAN CORPUSCULAR HGB CONC 34.4 g/dl (32.0-36.5); MEAN CORPUSCULAR VOLUME 92.4 fl (80.0-96.0); MONO % 6.6 % (0.0-5.0); NEUTROPHILS # 12.5 10^3/uL (1.5-8.5); NEUTROPHILS % 82.6 % (36.0-66.0); PLATELET COUNT, AUTOMATED 284 10^3/uL (150-450); RED BLOOD COUNT 3.81 10^6/uL (4.00-5.40); WHITE BLOOD COUNT 15.1 10^3/uL (4.0-10.0)
[2019-06-13] MEDS ORDERED: MORPHINE 2 MG/ML 1ML VIAL (J2270) IV ONE (11:00)
[2019-06-13] MEDS ORDERED: MORPHINE 2 MG/ML 1ML VIAL (J2270) As Ordered ONE (11:01)
[2019-06-13 11:27] LABS: ALBUMIN 3.9 GM/DL (3.2-5.2); BILIRUBIN,DIRECT 0.2 MG/DL (0.0-0.2); BILIRUBIN,TOTAL 0.6 MG/DL (0.2-1.0); CK-MB VALUE MASS 3.2 NG/ML (<3.6); MB/CK RELATIVE INDEX 1.39 (< OR =4); TROPONIN I 0.04 NG/ML (< 0.10)
[2019-06-13 11:33] LABS: AMPHETAMINES LEVEL URINE NEGATIVE (NEGATIVE); BARBITURATES URINE NEGATIVE (NEGATIVE); BENZODIAZEPINES URINE NEGATIVE (NEGATIVE); CANNABINOIDS URINE NEGATIVE (NEGATIVE); COCAINE METABOLITE URINE POSITIVE (NEGATIVE); METHADONE URINE NEGATIVE (NEGATIVE); OPIATES URINE POSITIVE (NEGATIVE); PHENCYCLIDINE URINE NEGATIVE (NEGATIVE)
[2019-06-13] MEDS ORDERED: hydrALAZINE INJ 20 MG/ML VIAL IV STA (11:53)
--- NOTE | 2019-06-13 12:49 | REP ---
CT ABDOMEN AND PELVIS WITHOUT IV OR ORAL CONTRAST: HISTORY: Abdominal pain. Comparison CT study is from June 19, 2016. CT FINDINGS: There is a stable somewhat nodular area of fibrosis in the right lower lobe. Mild linear fibrosis is seen in the right lower lobe posterior gutter. Lung bases are otherwise clear. Preliminary digital facetor radiograph demonstrates a small quantity of air and fluid in the colon. The liver and the spleen are normal in size homogeneous in texture. No adrenal lesion is seen. The gallbladder is unremarkable. There is a diffuse new high attenuation material in the peripancreatic soft tissues extending into the small bowel mesentery. There is some pericolic gutter fluid which appears to be a high attenuation as well. There is high attenuation fluid in the pelvis reflections. These changes are consistent with hemorrhagic pancreatitis with a small quantity of hemoperitoneum and a moderate amount of hemorrhage around the pancreas and in the small bowel mesentery. There is no evidence of free intraperitoneal air. Small and large bowel loops are unremarkable. Urinary bladder is intact. No renal abnormality is seen. There is no evidence of hydronephrosis. Aorta is normal in caliber. No periaortic hematoma is seen. IMPRESSION: Findings consistent with hemorrhagic pancreatitis with peripancreatic, small bowel mesenteric hemorrhage and mild hemoperitoneum. Electronically Signed by Jose Antonio Castrejon MD 06/13/2019 08:46 P
[2019-06-13] MEDS ORDERED: MORPHINE 4 MG/ML 1ML VIAL/SYRINGE (J2270) IV ONE (14:00)
[2019-06-13] MEDS ORDERED: ESCI20TA PO (14:21)
[2019-06-13] MEDS ORDERED: LISI-538 PO (14:21)
[2019-06-13] MEDS ORDERED: BUSP30TA PO (14:21)
[2019-06-13] MEDS ORDERED: MORPHINE 2 MG/ML 1ML VIAL (J2270) IV PRN (14:45)
[2019-06-13] MEDS: LABETALOL HCL 100 MG/20 ML VIAL IV PRN (14:59)
--- NOTE | 2019-06-13 16:01 | HPEPDOC ---
[facility] Medical History & Physical Date of Admission Jun 13, 2019 Date of Service: Jun 13, 2019 History and Physical CHIEF COMPLAINT: Abdominal pain HISTORY OF PRESENT ILLNESS: Patient is a 54F with PMH hep C s/p treatment, chronic low back pain, HTN, Asthma/COPD, abdominal hernia and heroin use presented to the ER with complaints of abdominal pain. Pain reportedly started about 2 days ago and has been worsened until now. Generalized abdominal pain worse in epigastric region, nonradiating, sharp, associated with nausea/vomiting and diarrhea initially as well as chills. Pain improves with lying still. Diarrhea and vomiting had reportedly stopped and nausea had improved for the past day. She states that she has relapsed on heroin again since march and snorts her heroin, denies IV use at this time. She also states that she does not drink heavily at home only several beers per week and does not report previous episode of pancreatitis in the past. She denies any other symptoms including fever, chest pain, SOB, or urinary symptoms. PAST MEDICAL HISTORY: Refer to [facility] PAST SURGICAL HISTORY: Left ankle surgery Hysterectomy Abdominal hernia repair SOCIAL HISTORY: Former smoker. Rare alcohol use. Snorts heroin. FAMILY HISTORY: Father- unknown cancer mother- lung cancer ALLERGIES: Please see below. REVIEW OF SYSTEMS: 10 point review of system negative except as stated in [facility] HOME MEDICATIONS: Please see below. PHYSICAL EXAMINATION: General: moderate distress, Alert Eyes: Normal sclera, EOMI HENT: Atraumatic Cardiovascular: Tachycardia Pulmonary: Clear to auscultation b/l, no wheezing GI: Soft, generalized tenderness worse over epigastric region. normoactive bowel sounds. Skin: Warm and dry Neuro: CN grossly intact. No focal deficits. Strengths equal b/l. Psych: oriented x 3 LABORATORY DATA: See below. IMAGING: CT Abdomen/Pelvis- Findings consistent with hemorrhagic pancreatitis with peripancreatic, small bowel mesenteric hemorrhage and mild hemoperitoneum. MICROBIOLOGY: Please see below. ASSESSMENT AND PLAN: 1. Acute pancreatitis on imaging - Unknown etiology. Patient denies history of gallstone and denies heavy alcohol use. - Has had persistent abdominal pain in the past. Worked up by GI, had ERCP last year? shows no evidence of obstruction. MRCP reportedly shows stenosis then. - Lipase on 213, not clearly suggestive of acute pancreatic inflammation however. - Pain control. NPO with sips. - Surgery consulted. - IVF support. 2. Hep C - s/p treatment with ID 3. HTN - IV anti-hypertensive PRN while patient is NPO at this time. - BP uncontrolled. Pain may be a contributing factor. 4. Asthma/COPD - no active exacerbation. - Duonebs PRN for SOB/wheezing. 5. heroin abuse - monitor for withdraw. Likely will require methadone or buprenorphine treatment. - Will require referral to community services upon discharge. DVT ppx: TEDs in setting of suspected hemorrhagic pancreatitis Code status: Full code Vital Signs Vital Signs Date Time Temp Pulse Resp B/P (MAP) Pulse Ox O2 Delivery O2 Flow Rate FiO2 06/13/19 15:00 102 18 168/87 (114) 100 Room Air 06/13/19 09:30 98.6 Laboratory Data Labs 24H Laboratory Tests 2 06/13/19 10:04: POC Glucose (Misc Panel) 122H, POC Sodium (Misc Panel) 136, POC Potassium (Misc Panel) 4.5, POC Chloride (Misc Panel) 100, POC Total CO2 (Misc Panel) 28.0H, POC Blood Urea Nitrogen (Misc Panel 31H, POC Ionized Calcium (Misc Panel) 4.4L, POC Creatinine (Misc Panel) 2.1H, POC Hematocrit (Misc Panel) 39.0 06/13/19 10:35: POC Lactate (Misc Panel) 0.94 06/13/19 10:39: Immature Granulocyte % (Auto) 0.3, Neutrophils (%) (Auto) 82.6H, Lymphocytes (%) (Auto) 10.1L, Monocytes (%) (Auto) 6.6H, Eosinophils (%) (Auto) 0.1, Basophils (%) (Auto) 0.3, Neutrophils # (Auto) 12.5H, Lymphocytes # (Auto) 1.5, Monocytes # (Auto) 1.0H, Eosinophils # (Auto) 0.0, Basophils # (Auto) 0.0, Nucleated Red Blood Cells % (auto) 0.0, Total Bilirubin 0.6, Direct Bilirubin 0.2, Aspartate Amino Transf (AST/SGOT) 24, Alanine Aminotransferase (ALT/SGPT) 30, Alkaline Phosphatase 93, Total Creatine Kinase 230H, Creatine Kinase MB 3.2, Creatine Kinase MB Relative Index 1.39, Troponin I 0.04, Total Protein 7.0, Albumin 3.9, Albumin/Globulin Ratio 1.26, Lipase 213 06/13/19 10:56: Urine Opiates Screen POSITIVEH, Urine Methadone Screen NEGATIVE, Urine Barbiturates Screen NEGATIVE, Urine Phencyclidine Screen NEGATIVE, Urine Amphetamines Screen NEGATIVE, Urine Benzodiazepines Screen NEGATIVE, Urine Cocaine Metabolite Screen POSITIVEH, Urine Cannabinoids Screen NEGATIVE 06/13/19 10:57: Urine Color NUSRAT, Urine Appearance CLOUDYH, Urine pH 5.0, Urine Specific [place] 1.031, Urine Protein 2+H, Urine Glucose (UA) NEGATIVE, Urine Ketones 1+H, Urine Blood NEGATIVE, Urine Nitrite NEGATIVE, Urine Bilirubin 1+H, Urine Urobilinogen 4.0H, Urine Leukocyte Esterase NEGATIVE, Urine WBC (Auto) 8H, Urine RBC (Auto) 6H, Urine Hyaline Casts (Auto) 11, Urine Bacteria (Auto) 1+H, Urine Squamous Epithelial Cells 25, Urine Amorphous Sediment SMALLH, Urine Granular Casts (Auto) 4, Urine Mucus (Auto) LARGE, Urine Sperm (Auto) CBC/BMP Laboratory Tests 06/13/19 10:39 Home Medications Scheduled Aspirin (Aspirin EC) 81 Mg Tab, 81 MG PO DAILY Buspirone HCl (Buspirone HCl) 30 Mg Tablet, 30 MG PO BID Escitalopram Oxalate (Escitalopram Oxalate) 20 Mg Tablet, 20 MG PO DAILY Lisinopril (Lisinopril) 20 Mg Tablet, 20 MG PO DAILY Plecanatide (Trulance) 3 Mg Tablet, 3 MG PO DAILY Trazodone HCl (Trazodone HCl) 100 Mg Tablet, 200 MG PO QHS Scheduled PRN Albuterol Sulfate (Ventolin Hfa) 108 Mcg/Act Aer, 2 PUFFS INH QID PRN for SOB/WHEEZING Allergies Coded Allergies: TAPE (Verified Allergy, Intermediate, RASH, 06/13/19) latex (Verified Allergy, Intermediate, rash, 06/13/19) baclofen (Verified Adverse Reaction, Intermediate, ringing in ears, 06/13/19) A-FIB/CHADSVASC A-FIB History Current/History of A-Fib/PAF?: No JAMIE PEARSON MD Jun 13, 2019 16:01
[2019-06-13 16:08] VITALS: BP 136/83
[2019-06-13] MEDS: NS 1,000 ML IV SCH ×2 (16:29→21:06)
[2019-06-13] MEDS ORDERED: IPRATROPIUM 0.5MG/ALBUTEROL 2.5MG INH SOL UD 3ML (DUONEB)(J7620) NEB PRN (17:45)
[2019-06-13 20:00] VITALS: BP 150/82
[2019-06-13] MEDS: MORPHINE 2 MG/ML 1ML VIAL (J2270) IV PRN (21:06)
[2019-06-14] VITALS (8 sets, daily range): BP systolic 126–180; BP diastolic 73–108
[2019-06-14] MEDS: MORPHINE 2 MG/ML 1ML VIAL (J2270) IV PRN ×4 (03:46→20:03)
[2019-06-14] MEDS: NS 1,000 ML IV SCH ×3 (04:05→16:48)
[2019-06-14 05:48] LABS: HEMATOCRIT 28.3 % (36.0-47.0); MEAN CORPUSCULAR HEMOGLOBIN 31.3 pg (27.0-33.0); MEAN CORPUSCULAR HGB CONC 32.5 g/dl (32.0-36.5); MEAN CORPUSCULAR VOLUME 96.3 fl (80.0-96.0); RED BLOOD COUNT 2.94 10^6/uL (4.00-5.40); WHITE BLOOD COUNT 6.5 10^3/uL (4.0-10.0)
[2019-06-14 06:01] LABS: HEMOGLOBIN 9.2 g/dl (12.0-15.5); PLATELET COUNT, AUTOMATED 163 10^3/uL (150-450)
[2019-06-14 06:31] LABS: ALBUMIN 2.7 GM/DL (3.2-5.2); ALT/SGPT 21 U/L (12-78); BILIRUBIN,TOTAL 0.5 MG/DL (0.2-1.0); BLOOD UREA NITROGEN 19 MG/DL (7-18); CALCIUM LEVEL 7.7 MG/DL (8.5-10.1); CARBON DIOXIDE LEVEL 22 MEQ/L (21-32); CHLORIDE LEVEL 111 MEQ/L (98-107); CHOLESTEROL LEVEL 140 MG/DL (<200); CREATININE FOR GFR 0.92 MG/DL (0.55-1.30); GLOMERULAR FILTRATION RATE > 60.0 (>51); GLUCOSE, FASTING 81 MG/DL (70-100); HDL CHOLESTEROL 40 MG/DL (>40); LDL CHOLESTEROL 69 MG/DL (<100); NON-HDL-C 100 MG/DL; POTASSIUM SERUM 4.1 MEQ/L (3.5-5.1); SODIUM LEVEL 140 MEQ/L (136-145); TOTAL PROTEIN 5.3 GM/DL (6.4-8.2); TRIGLYCERIDES LEVEL 154 MG/DL (<150)
--- NOTE | 2019-06-14 09:51 | ECGEPIP ---
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
--- NOTE | 2019-06-14 10:48 | IPNPDOC ---
Text Note Date of Service The patient was seen on 06/14/19. NOTE Patient admitted with 2 days of abdominal pain and vomiting prior to presenta tion. Feels better. Has not had any vomiting since admission. Denies nausea Hemodynamically stable. On exam, she looks comfortable looks adequately hydrated lung sounds clear regular heart rate and rhythm abdomen is nondistended, flat, mildly tender on palpation at the epigastric area. Pancreatitis, ?hemorrhagic Etiology uncertain, she does not have any gallstones per multiple imaging. she was extensively using cocaine for the past couple of months also has alcohol intake but denies recent alcohol intake the past week or so. she is hemodynamically stable does not require transfusion pain well controlled trial of oral diet will follow no surgical intervention required VS,Fishbone, I+O VS, Fishbone, I+O Laboratory Tests 06/14/19 05:27 Vital Signs Date Time Temp Pulse Resp B/P (MAP) Pulse Ox O2 Delivery O2 Flow Rate FiO2 06/14/19 08:00 98.0 77 18 160/92 (114) 98 Room Air I&O- Last 24 Hours up to 6 AM 06/14/19 06:00 Intake Total 3150 ml Output Total 250 ml Balance 2900 ml MOHINDER MANUEL MD Jun 14, 2019 10:48
[2019-06-14] MEDS: LABETALOL HCL 100 MG/20 ML VIAL IV PRN ×2 (12:45→16:03)
--- NOTE | 2019-06-14 16:03 | IPNPDOC ---
Date Seen The patient was seen on 06/14/19. Progress Note SUBJECTIVE: Patient reported feeling much better today. Abdominal discomfort at 4/10 this morning and requesting to eat. Leukocytosis resolved WBC 15->6.5 OBJECTIVE PHYSICAL EXAMINATION: General: moderate distress, Alert Eyes: Normal sclera, EOMI HENT: Atraumatic Cardiovascular: Normal rate Pulmonary: Clear to auscultation b/l, no wheezing GI: Soft, generalized tenderness worse over epigastric region. normoactive bowel sounds. Skin: Warm and dry Neuro: CN grossly intact. No focal deficits. Strengths equal b/l. Psych: oriented x 3 LABORATORY DATA: See below. IMAGING: CT Abdomen/Pelvis- Findings consistent with hemorrhagic pancreatitis with peripancreatic, small bowel mesenteric hemorrhage and mild hemoperitoneum. MICROBIOLOGY: Please see below. ASSESSMENT AND PLAN: 1. Acute pancreatitis on imaging - Symptoms improving - Unclear etiology. Patient denies history of gallstone and denies heavy alcohol use. - Has had persistent abdominal pain in the past. Worked up by GI, had ERCP last year? shows no evidence of obstruction. MRCP reportedly shows stenosis then. - Lipase only 213 - Pain control. Advance diet as tolerated. - Surgery following. - IVF support. 2. Hep C - s/p treatment with ID 3. HTN - Resume home med. 4. Asthma/COPD - no active exacerbation. - Duonebs PRN for SOB/wheezing. 5. heroin abuse - monitor for withdraw. Likely will require methadone or buprenorphine treatment. - Will require referral to community services upon discharge. DVT ppx: TEDs Code status: Full code VS, I&O, 24H, Fishbone Vital Signs/I&O Vital Signs Date Time Temp Pulse Resp B/P (MAP) Pulse Ox O2 Delivery O2 Flow Rate FiO2 06/14/19 12:45 81 180/108 06/14/19 12:00 97.3 18 98 Room Air I&O- Last 24 Hours up to 6 AM 06/14/19 06:00 Intake Total 3150 ml Output Total 250 ml Balance 2900 ml Laboratory Data 24H LABS Laboratory Tests 2 06/14/19 05:27: Nucleated Red Blood Cells % (auto) 0.0, Anion Gap 7L, Glomerular Filtration Rate > 60.0, Calcium Level 7.7L, Total Bilirubin 0.5, Aspartate Amino Transf (AST/SGOT) 18, Alanine Aminotransferase (ALT/SGPT) 21, Alkaline Phosphatase 67, Total Protein 5.3#L, Albumin 2.7#L, Albumin/Globulin Ratio 1.04, Triglycerides Level 154H, Total Cholesterol 140, LDL Cholesterol 69, Non-HDL Cholesterol (LDL + VLDL) 100, Total HDL Cholesterol 40, Cholesterol/HDL Ratio 3.500 CBC/BMP Laboratory Tests 06/14/19 05:27 JAMIE PEARSON MD Jun 14, 2019 16:03
[2019-06-14] MEDS: lisinopriL 20 MG TAB PO SCH (16:44)
[2019-06-14] MEDS: busPIRone 10 MG TAB PO SCH (20:04)
[2019-06-14] MEDS: traZODone 100 MG TAB PO SCH (20:05)
[2019-06-15] VITALS: BP 134/80
[2019-06-15] MEDS: NS 1,000 ML IV SCH ×2 (00:44→06:45)
[2019-06-15] MEDS: MORPHINE 2 MG/ML 1ML VIAL (J2270) IV PRN ×6 (01:20→20:28)
[2019-06-15 04:00] VITALS: BP 162/90
[2019-06-15 06:08] LABS: HEMATOCRIT 26.3 % (36.0-47.0); HEMOGLOBIN 8.7 g/dl (12.0-15.5); MEAN CORPUSCULAR HEMOGLOBIN 31.3 pg (27.0-33.0); MEAN CORPUSCULAR HGB CONC 33.1 g/dl (32.0-36.5); MEAN CORPUSCULAR VOLUME 94.6 fl (80.0-96.0); PLATELET COUNT, AUTOMATED 157 10^3/uL (150-450); RED BLOOD COUNT 2.78 10^6/uL (4.00-5.40); WHITE BLOOD COUNT 4.8 10^3/uL (4.0-10.0)
[2019-06-15 06:34] LABS: ALBUMIN 2.5 GM/DL (3.2-5.2); ALT/SGPT 20 U/L (12-78); BILIRUBIN,TOTAL 0.4 MG/DL (0.2-1.0); BLOOD UREA NITROGEN 9 MG/DL (7-18); CALCIUM LEVEL 7.9 MG/DL (8.5-10.1); CARBON DIOXIDE LEVEL 24 MEQ/L (21-32); CHLORIDE LEVEL 116 MEQ/L (98-107); CREATININE FOR GFR 0.76 MG/DL (0.55-1.30); GLOMERULAR FILTRATION RATE > 60.0 (>51); GLUCOSE, FASTING 78 MG/DL (70-100); POTASSIUM SERUM 3.8 MEQ/L (3.5-5.1); SODIUM LEVEL 145 MEQ/L (136-145); TOTAL PROTEIN 5.2 GM/DL (6.4-8.2)
[2019-06-15 08:00] VITALS: BP 156/90
[2019-06-15] MEDS: ESCITALOPRAM OXALATE 10 MG TAB (LEXAPRO) PO SCH (08:22)
[2019-06-15] MEDS: busPIRone 10 MG TAB PO SCH ×2 (08:22→20:27)
[2019-06-15] MEDS: lisinopriL 20 MG TAB PO SCH (08:22)
[2019-06-15] MEDS ORDERED: FLUBLOK(EGG FREE)(QUAD)INFLUENZA VACC 0.5ML SYRINGE (90682)18YRS&OLDER IM ONE (09:00)
[2019-06-15] MEDS: amLODIPine 5 MG TAB PO SCH (09:19)
--- NOTE | 2019-06-15 10:52 | IPNPDOC ---
Date Seen The patient was seen on 06/15/19. Progress Note SUBJECTIVE: Patient reported that she does not have significant pain this morning and ying erated her breakfast. Wants to try eating solid foods. OBJECTIVE PHYSICAL EXAMINATION: General: moderate distress, Alert Eyes: Normal sclera, EOMI HENT: Atraumatic Cardiovascular: Normal rate Pulmonary: Clear to auscultation b/l, no wheezing GI: Soft, mild generalized tenderness worse over epigastric region. normoactive bowel sounds. Skin: Warm and dry Neuro: CN grossly intact. No focal deficits. Strengths equal b/l. Psych: oriented x 3 LABORATORY DATA: See below. IMAGING: CT Abdomen/Pelvis- Findings consistent with hemorrhagic pancreatitis with peripancreatic, small bowel mesenteric hemorrhage and mild hemoperitoneum. MICROBIOLOGY: Please see below. ASSESSMENT AND PLAN: 1. Acute pancreatitis on imaging - Symptoms improving - Unclear etiology. Patient denies history of gallstone and denies heavy alcohol use. TG only slightly elevated at 154. - Has had persistent abdominal pain in the past. Worked up by GI, had ERCP last year? shows no evidence of obstruction. MRCP reportedly shows stenosis then. - Lipase only 213 - Pain control. Advance diet as tolerated. - Surgery following. 2. Hep C - s/p treatment with ID 3. HTN - Resume home med. 4. Asthma/COPD - no active exacerbation. - Duonebs PRN for SOB/wheezing. 5. heroin abuse - monitor for withdraw. - Will require referral to community services upon discharge. DVT ppx: TEDs Code status: Full code VS, I&O, 24H, Fishbone Vital Signs/I&O Vital Signs Date Time Temp Pulse Resp B/P (MAP) Pulse Ox O2 Delivery O2 Flow Rate FiO2 06/15/19 09:35 16 06/15/19 09:19 73 162/90 06/15/19 08:00 98.1 97 Room Air I&O- Last 24 Hours up to 6 AM 06/15/19 06:00 Intake Total 2200 ml Output Total 2200 ml Balance 0 ml Laboratory Data 24H LABS Laboratory Tests 2 06/15/19 05:35: Nucleated Red Blood Cells % (auto) 0.0, Anion Gap 5L, Glomerular Filtration Rate > 60.0, Calcium Level 7.9L, Total Bilirubin 0.4, Aspartate Amino Transf (AST/SGOT) 12, Alanine Aminotransferase (ALT/SGPT) 20, Alkaline Phosphatase 65, Total Protein 5.2L, Albumin 2.5L, Albumin/Globulin Ratio 0.93L CBC/BMP Laboratory Tests 06/15/19 05:35 JAMIE PEARSON MD Jun 15, 2019 10:52
[2019-06-15 12:00] VITALS: BP 162/98
[2019-06-15 14:35] VITALS: BP 159/95
[2019-06-15] MEDS: traZODone 100 MG TAB PO SCH (20:27)
[2019-06-15 22:00] VITALS: BP 155/95
[2019-06-16] MEDS: MORPHINE 2 MG/ML 1ML VIAL (J2270) IV PRN ×3 (00:18→11:01)
[2019-06-16 05:35] VITALS: BP 140/88
[2019-06-16 06:27] LABS: HEMATOCRIT 29.8 % (36.0-47.0); HEMOGLOBIN 10.2 g/dl (12.0-15.5); MEAN CORPUSCULAR HEMOGLOBIN 31.6 pg (27.0-33.0); MEAN CORPUSCULAR HGB CONC 34.2 g/dl (32.0-36.5); MEAN CORPUSCULAR VOLUME 92.3 fl (80.0-96.0); PLATELET COUNT, AUTOMATED 197 10^3/uL (150-450); RED BLOOD COUNT 3.23 10^6/uL (4.00-5.40); WHITE BLOOD COUNT 4.8 10^3/uL (4.0-10.0)
[2019-06-16 07:06] LABS: ALBUMIN 2.9 GM/DL (3.2-5.2); ALT/SGPT 18 U/L (12-78); BILIRUBIN,TOTAL 0.5 MG/DL (0.2-1.0); BLOOD UREA NITROGEN 9 MG/DL (7-18); CALCIUM LEVEL 8.3 MG/DL (8.5-10.1); CARBON DIOXIDE LEVEL 27 MEQ/L (21-32); CHLORIDE LEVEL 109 MEQ/L (98-107); CREATININE FOR GFR 0.88 MG/DL (0.55-1.30); GLOMERULAR FILTRATION RATE > 60.0 (>51); GLUCOSE, FASTING 94 MG/DL (70-100); POTASSIUM SERUM 3.6 MEQ/L (3.5-5.1); SODIUM LEVEL 142 MEQ/L (136-145)
[2019-06-16] MEDS: busPIRone 10 MG TAB PO SCH (08:23)
[2019-06-16 08:24] VITALS: BP 140/88
[2019-06-16] MEDS: ESCITALOPRAM OXALATE 10 MG TAB (LEXAPRO) PO SCH (08:24)
[2019-06-16] MEDS: amLODIPine 5 MG TAB PO SCH (08:24)
[2019-06-16] MEDS: lisinopriL 20 MG TAB PO SCH (08:24)
[2019-06-16] MEDS ORDERED: MIRALAX *UNIT DOSE* 17GM PACKET PO SCH (09:00)
[2019-06-16] MEDS ORDERED: TRAM50TA2 PO (13:36)
[2019-06-16 14:00] VITALS: BP 158/98
--- NOTE | 2019-06-16 14:20 | DS.PDOC ---
Discharge Summary General Date of Admission Jun 13, 2019 at 14:40 Date of Discharge 06/16/19 Discharge Summary PROCEDURES PERFORMED DURING STAY: [None]. ADMITTING DIAGNOSES: 1. Pancreatitis 2. Hep C 3. HTN 4. Asthma/COPD 5. Heroin abuse DISCHARGE DIAGNOSES: 1. Pancreatitis 2. Hep C 3. HTN 4. Asthma/COPD 5. Heroin abuse COMPLICATIONS/CHIEF COMPLAINT: Pancreatitis. HISTORY OF PRESENT ILLNESS: "Patient is a 54F with PMH hep C s/p treatment, chronic low back pain, HTN, Asthma/COPD, abdominal hernia and heroin use presented to the ER with complaints of abdominal pain. Pain reportedly started about 2 days ago and has been worsened until now. Generalized abdominal pain worse in epigastric region, nonr adiating, sharp, associated with nausea/vomiting and diarrhea initially as well as chills. Pain improves with lying still. Diarrhea and vomiting had reportedly stopped and nausea had improved for the past day. She states that she has relapsed on heroin again since march and snorts her heroin, denies IV use at this time. She also states that she does not drink heavily at home only several beers per week and does not report previous episode of pancreatitis in the past. She denies any other symptoms including fever, chest pain, SOB, or urinary symptoms." HOSPITAL COURSE: Patient was managed for pancreatitis conservatively along with surgery. Symptoms improved fairly quickly with pain medication and IVF, patient diet was advanced with steady improvement in symptoms now with mild epigastric discomfort. No clear etiology of pancreatitis as patient does not report heavy alcohol consumption, does not appear to have an obstructive etiology relating to cholelithiasis. Fluid/inflammation on imaging was suggestive of hemorrhagic process? Hb remained stable and symptoms have now almost completely resolved. Patient did have reportedly stenosis noted on MRCP and has had ERCP already without significant findings in the past. Will discharge patient to f/u PMD. Advised to stop using alcohol and heroin. DISCHARGE MEDICATIONS: Please see below. ALLERGIES: Please see below. PHYSICAL EXAMINATION ON DISCHARGE: VITAL SIGNS: Please see below. General: moderate distress, Alert Eyes: Normal sclera, EOMI HENT: Atraumatic Cardiovascular: Normal rate Pulmonary: Clear to auscultation b/l, no wheezing GI: Soft, mild generalized tenderness worse over epigastric region. normoactive bowel sounds. Skin: Warm and dry Neuro: CN grossly intact. No focal deficits. Strengths equal b/l. Psych: oriented x 3 LABORATORY DATA: Please see below. IMAGING: CT Abdomen/Pelvis- Findings consistent with hemorrhagic pancreatitis with peripancreatic, small bowel mesenteric hemorrhage and mild hemoperitoneum. ACTIVITY: [As tolerated]. DIET: Regular diet DISCHARGE PLAN: f/u PMD Avoid alcohol and drugs DISPOSITION: Home. DISCHARGE INSTRUCTIONS: f/u PMD Avoid alcohol and drugs ITEMS TO FOLLOWUP ON ON OUTPATIENT: None DISCHARGE CONDITION: [Stable]. TIME SPENT ON DISCHARGE: 32 minutes. Vital Signs/I&Os Vital Signs Date Time Temp Pulse Resp B/P (MAP) Pulse Ox O2 Delivery O2 Flow Rate FiO2 06/16/19 11:11 18 06/16/19 08:24 65 140/88 06/16/19 05:35 98.2 99 Room Air I&O- Last 24 Hours up to 6 AM 06/16/19 06:00 Intake Total 1600 ml Output Total 0 ml Balance 1600 ml Laboratory Data Labs 24H Laboratory Tests 2 06/16/19 05:55: Nucleated Red Blood Cells % (auto) 0.0, Anion Gap 6L, Glomerular Filtration Rate > 60.0, Calcium Level 8.3L, Total Bilirubin 0.5, Aspartate Amino Transf (AST/SGOT) 11, Alanine Aminotransferase (ALT/SGPT) 18, Alkaline Phosphatase 78, Total Protein 6.0L, Albumin 2.9L, Albumin/Globulin Ratio 0.94L CBC/BMP Laboratory Tests 06/16/19 05:55 Discharge Medications Scheduled Aspirin (Aspirin EC) 81 Mg Tab, 81 MG PO DAILY, (Reported) Buspirone HCl (Buspirone HCl) 30 Mg Tablet, 30 MG PO BID, (Reported) Escitalopram Oxalate (Escitalopram Oxalate) 20 Mg Tablet, 20 MG PO DAILY, (Reported) Lisinopril (Lisinopril) 20 Mg Tablet, 20 MG PO DAILY, (Reported) Plecanatide (Trulance) 3 Mg Tablet, 3 MG PO DAILY, (Reported) Trazodone HCl (Trazodone HCl) 100 Mg Tablet, 200 MG PO QHS, (Reported) Scheduled PRN Albuterol Sulfate (Ventolin Hfa) 108 Mcg/Act Aer, 2 PUFFS INH QID PRN for SOB/WHEEZING, (Reported) Tramadol HCl (Tramadol HCl) 50 Mg Tablet, 50 MG PO Q8HP PRN for severe pain Allergies Coded Allergies: TAPE (Verified Allergy, Intermediate, RASH, 06/13/19) latex (Verified Allergy, Intermediate, rash, 06/13/19) baclofen (Verified Adverse Reaction, Intermediate, ringing in ears, 06/13/19) JAMIE PEARSON MD Jun 16, 2019 14:20
== END 2019-06-16 15:45 | disposition home or self-care (01) | DRG 282 ==
LOC: EDBD 09:22 → M ED 09:22 → M ED INP 14:40 → ENRESERV 14:49 → M PCU 16:07 → M MS5PR 06-15 14:25
PROVIDERS: ADMIT Student in an Organized Health Care Education/Training Program; ATTEND Student in an Organized Health Care Education/Training Program
DX: K85.90 Acute pancreatitis without necrosis or infection, unspecified (principal); F11.20 Opioid dependence, uncomplicated; I10 Essential (primary) hypertension; Z86.19 Personal history of other infectious and parasitic diseases; J44.9 Chronic obstructive pulmonary disease, unspecified; G89.29 Other chronic pain; M54.5 Low back pain; Z90.79 Acquired absence of other genital organ(s); Z87.891 Personal history of nicotine dependence; Z79.82 Long term (current) use of aspirin; Z79.899 Other long term (current) drug therapy; Z91.040 Latex allergy status; Z91.09 Other allergy status, other than to drugs and biological substances; Z88.8 Allergy status to other drugs, medicaments and biological substances; D72.829 Elevated white blood cell count, unspecified

== ENCOUNTER → 2019-07-16 | Outpatient (REF) | payer OTHER ==
[~2019-07-16] MED LIST changes: +BUSP30TA PO; +ESCI20TA PO; -FLUO20CA19 PO; +FLUO20CA22 PO; +LISI-538 PO; +TRAM50TA2 PO; +TRUL3TAB PO
[2019-07-16 18:40] LABS: BASO % 0.5 % (0.0-1.0); EOS # 0.1 10^3/uL (0.0-0.5); EOS % 1.8 % (0.0-3.0); HEMATOCRIT 41.6 % (36.0-47.0); HEMOGLOBIN 13.6 g/dl (12.0-15.5); LYMPH # 2.4 10^3/uL (1.5-5.0); MEAN CORPUSCULAR HEMOGLOBIN 30.8 pg (27.0-33.0); MEAN CORPUSCULAR HGB CONC 32.7 g/dl (32.0-36.5); MEAN CORPUSCULAR VOLUME 94.3 fl (80.0-96.0); MONO # 0.4 10^3/uL (0.0-0.8); MONO % 6.4 % (0.0-5.0); NEUTROPHILS # 2.7 10^3/uL (1.5-8.5); NEUTROPHILS % 48.1 % (36.0-66.0); PLATELET COUNT, AUTOMATED 186 10^3/uL (150-450); RED BLOOD COUNT 4.41 10^6/uL (4.00-5.40); WHITE BLOOD COUNT 5.5 10^3/uL (4.0-10.0)
[2019-07-16 18:54] LABS: ALBUMIN 3.5 GM/DL (3.2-5.2); BILIRUBIN,TOTAL 0.1 MG/DL (0.2-1.0); CALCIUM LEVEL 8.7 MG/DL (8.5-10.1); CHOLESTEROL RISK RATIO 3.173 (<5); CREATININE FOR GFR 1.04 MG/DL (0.55-1.30); FREE T4 0.71 NG/DL (0.76-1.46); GLOMERULAR FILTRATION RATE 58.8 (>51); POTASSIUM SERUM 4.5 MEQ/L (3.5-5.1); THYROID STIMULATING HORMONE 6.01 uIU/ML (0.358-3.740); TOTAL PROTEIN 6.6 GM/DL (6.4-8.2)
[2019-07-16 18:57] LABS: TOTAL 25(OH) VITAMIN D 22.1 NG/ML (30.0-100.0)
== END ==
LOC: M LAB REF 17:42
PROVIDERS: ATTEND Physician Assistant
DX: Z13.220 Encounter for screening for lipoid disorders (principal); I10 Essential (primary) hypertension; K21.9 Gastro-esophageal reflux disease without esophagitis; E55.9 Vitamin D deficiency, unspecified; R79.89 Other specified abnormal findings of blood chemistry; J44.9 Chronic obstructive pulmonary disease, unspecified; F32.9 Major depressive disorder, single episode, unspecified; K85.90 Acute pancreatitis without necrosis or infection, unspecified; K58.1 Irritable bowel syndrome with constipation

== ENCOUNTER → 2019-12-05 | Outpatient (REF) | payer OTHER, MEDICAID ==
[~2019-12-05] MED LIST changes: +AMLO1TAB24 PO; -AMLO5TAB6 PO; +CYCL-707 PO; -CYCL10TA PO; +PANT40TA29 PO; -PANT40TA3 PO; +PROT1TAB2 PO; +SUCR1SS PO
[2019-12-05 17:44] LABS: BASO % 0.5 % (0.0-1.0); EOS # 0.1 10^3/uL (0.0-0.5); EOS % 1.3 % (0.0-3.0); HEMATOCRIT 39.5 % (36.0-47.0); HEMOGLOBIN 13.4 g/dl (12.0-15.5); LYMPH # 1.8 10^3/uL (1.5-5.0); LYMPH % 24.2 % (24.0-44.0); MEAN CORPUSCULAR HEMOGLOBIN 32.9 pg (27.0-33.0); MEAN CORPUSCULAR HGB CONC 33.9 g/dl (32.0-36.5); MEAN CORPUSCULAR VOLUME 97.1 fl (80.0-96.0); MONO # 0.5 10^3/uL (0.0-0.8); MONO % 7.2 % (0.0-5.0); NEUTROPHILS # 4.9 10^3/uL (1.5-8.5); NEUTROPHILS % 66.4 % (36.0-66.0); PLATELET COUNT, AUTOMATED 225 10^3/uL (150-450); RED BLOOD COUNT 4.07 10^6/uL (4.00-5.40); WHITE BLOOD COUNT 7.5 10^3/uL (4.0-10.0)
[2019-12-05 18:01] LABS: ALBUMIN 3.5 GM/DL (3.2-5.2); ALT/SGPT 27 U/L (12-78); BILIRUBIN,TOTAL 0.3 MG/DL (0.2-1.0); BLOOD UREA NITROGEN 23 MG/DL (7-18); CARBON DIOXIDE LEVEL 28 MEQ/L (21-32); CHLORIDE LEVEL 109 MEQ/L (98-107); CHOLESTEROL LEVEL 179 MG/DL (<200); CHOLESTEROL RISK RATIO 2.452 (<5); CREATININE FOR GFR 1.02 MG/DL (0.55-1.30); FREE T4 0.86 NG/DL (0.76-1.46); GLOMERULAR FILTRATION RATE > 60.0 (>51); GLUCOSE, FASTING 84 MG/DL (70-100); HDL CHOLESTEROL 73 MG/DL (>40); LDL CHOLESTEROL 77 MG/DL (<100); NON-HDL-C 106 MG/DL; POTASSIUM SERUM 4.9 MEQ/L (3.5-5.1); SODIUM LEVEL 141 MEQ/L (136-145); TOTAL 25(OH) VITAMIN D 29.4 NG/ML (30.0-100.0); TOTAL PROTEIN 6.5 GM/DL (6.4-8.2); TRIGLYCERIDES LEVEL 147 MG/DL (<150)
[2019-12-05 18:15] LABS: HEMOGLOBIN A1c 4.9 %
== END ==
LOC: M LAB REF 16:37
PROVIDERS: ATTEND Nurse Practitioner Family
DX: E78.5 Hyperlipidemia, unspecified (principal); Z13.9 Encounter for screening, unspecified; R79.89 Other specified abnormal findings of blood chemistry; E55.9 Vitamin D deficiency, unspecified; I10 Essential (primary) hypertension; F41.8 Other specified anxiety disorders; Z72.0 Tobacco use

== ENCOUNTER 2019-12-11 11:25 | Emergency (ER) | payer MEDICAID, OTHER ==
[~2019-12-11] VITALS: Ht 152.4 cm; Wt 59.1 kg
[~2019-12-11 11:25] MED LIST changes: -AMLO1TAB24 PO; +AMLO5TAB6 PO; -PANT40TA29 PO; +PANT40TA3 PO; -PROT1TAB2 PO; -SUCR1SS PO
[2019-12-11] MEDS ORDERED: MORPHINE 4 MG/ML 1ML VIAL/SYRINGE (J2270) IV ONE (12:15)
[2019-12-11 12:17] LABS: BASO % 0.5 % (0.0-1.0); EOS # 0.1 10^3/uL (0.0-0.5); EOS % 1.8 % (0.0-3.0); HEMATOCRIT 40.9 % (36.0-47.0); HEMOGLOBIN 13.7 g/dl (12.0-15.5); LYMPH # 1.3 10^3/uL (1.5-5.0); LYMPH % 23.7 % (24.0-44.0); MEAN CORPUSCULAR HEMOGLOBIN 32.5 pg (27.0-33.0); MEAN CORPUSCULAR HGB CONC 33.5 g/dl (32.0-36.5); MEAN CORPUSCULAR VOLUME 97.1 fl (80.0-96.0); MONO # 0.3 10^3/uL (0.0-0.8); MONO % 5.9 % (0.0-5.0); NEUTROPHILS # 3.8 10^3/uL (1.5-8.5); NEUTROPHILS % 67.6 % (36.0-66.0); PLATELET COUNT, AUTOMATED 201 10^3/uL (150-450); RED BLOOD COUNT 4.21 10^6/uL (4.00-5.40); WHITE BLOOD COUNT 5.6 10^3/uL (4.0-10.0)
[2019-12-11 12:40] LABS: ALBUMIN 3.4 GM/DL (3.2-5.2); BILIRUBIN,DIRECT 0.1 MG/DL (0.0-0.2); BILIRUBIN,TOTAL 0.5 MG/DL (0.2-1.0); TOTAL PROTEIN 6.2 GM/DL (6.4-8.2)
[2019-12-11] MEDS ORDERED: GI COCKTAIL 50ML BTL(HYOSCYAMINE/MAALOX/LIDOCAINE VISCOUS)(1:3:1) PO ONE (12:45)
[2019-12-11] MEDS ORDERED: ISOVUE-370 76% 100ML VIAL As Ordered ONE (13:12)
--- NOTE | 2019-12-11 16:09 | REP ---
CT ABDOMEN AND PELVIS WITH IV CONTRAST: TECHNIQUE: Axial contrast-enhanced images from the lung bases to the pubic symphysis using 100 mL Isovue-370 intravenous contrast material with multiplanar reformations. No acute infiltrate is seen in the visualized lung bases. The liver, gallbladder, spleen, adrenals, pancreas and kidneys appear unremarkable. There is mild cortical thinning of the kidneys bilaterally without hydronephrosis. No definite inflammatory change is seen in the region of the pancreas. There is no abdominal aortic aneurysm. There is no adenopathy. There is no free air or free fluid. The proximal jejunum is moderately dilated with focal transition to a normal caliber in the left mid abdomen. Findings may indicate some degree of obstruction at that point. No other bowel abnormality is seen. The patient has had a hysterectomy. No pelvic mass is seen. Urinary bladder is mildly distended and grossly unremarkable. IMPRESSION: Mildly dilated proximal jejunum with transition point to normal caliber in the left mid abdomen. This raises the possibility of some degree of small bowel obstruction at that location. No other acute findings. Electronically Signed by Danish iGl MD 12/15/2019 09:06 A
[2019-12-11 17:30] VITALS: BP 136/80
[2019-12-11] MEDS ORDERED: PROT1TAB2 PO (17:37)
[2019-12-11] MEDS ORDERED: SUCR1SS PO (17:37)
--- NOTE | 2019-12-11 20:39 | ECGEPIP ---
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
--- NOTE | 2019-12-16 10:45 | ED PDOC ---
Post-Departure Follow-Up leah ledesma faxed formal report of ct abd/p for fu georgianag Angelo Corrigan MD Dec 16, 2019 10:45
== END 2019-12-11 17:46 | disposition home or self-care (01) ==
LOC: EDBD 11:25 → M ED 11:25
DX: K29.70 Gastritis, unspecified, without bleeding (principal); N18.3 Chronic kidney disease, stage 3 (moderate); B19.20 Unspecified viral hepatitis C without hepatic coma; K21.9 Gastro-esophageal reflux disease without esophagitis; F10.11 Alcohol abuse, in remission; F11.11 Opioid abuse, in remission; Z79.899 Other long term (current) drug therapy; Z79.82 Long term (current) use of aspirin; Z88.1 Allergy status to other antibiotic agents; Z91.040 Latex allergy status; Z91.048 Other nonmedicinal substance allergy status; F17.210 Nicotine dependence, cigarettes, uncomplicated
CPT/HCPCS: 36415; 74177; 80047; 80076; 83690; 85025; 86850; 86900; 86901; 93005; 93041; 96374; 99284; J2270; Q9967

== ENCOUNTER 2020-01-26 15:30 | Emergency (ER) | payer OTHER ==
[~2020-01-26] VITALS: Ht 152.4 cm; Wt 60.9 kg
[2020-01-26] MEDS ORDERED: methocarbamoL 750 MG TAB PO ONE (17:15)
[2020-01-26] MEDS ORDERED: LIDOCAINE 5% (LIDODERM) PATCH TD ONE (17:15)
[2020-01-26] MEDS ORDERED: methylPREDNISolone 125MG 2ML VIAL IM ONE (17:15)
[2020-01-26 18:06] VITALS: BP 169/104
[2020-01-26] MEDS ORDERED: **NOTE PATIENT COMMENT** MISC XX SCH (21:00)
--- NOTE | 2020-02-10 13:44 | ECGEPIP ---
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
== END 2020-01-26 18:07 | disposition home or self-care (01) ==
LOC: M ED 15:30
DX: M54.5 Low back pain (principal); I12.9 Hypertensive chronic kidney disease with stage 1 through stage 4 chronic kidney disease, or unspecified chronic kidney disease; N18.3 Chronic kidney disease, stage 3 (moderate); Z79.82 Long term (current) use of aspirin; Z79.899 Other long term (current) drug therapy; Z88.1 Allergy status to other antibiotic agents; Z91.040 Latex allergy status; Z91.048 Other nonmedicinal substance allergy status; F17.210 Nicotine dependence, cigarettes, uncomplicated
CPT/HCPCS: 81001; 93005; 96372; 99284; J2930

== ENCOUNTER → 2020-01-26 | Outpatient (CLI) | payer OTHER ==
[~2020-01-26] MED LIST changes: +AMLO1TAB24 PO; -AMLO5TAB6 PO; +PANT40TA29 PO; -PANT40TA3 PO; +PROT1TAB2 PO; +SUCR1SS PO
--- NOTE | 2020-01-26 15:07 | REPMRS ---
Patient History The patient states she has not had a clinical breast exam in over a year. No known family history of cancer. No Hormone Replacement Therapy 3D TOMOSYNTHESIS WAS PERFORMED. The Paola Vega lifetime risk for breast cancer is 7.4%. RADHA Cr. Digital Woman Screen Mammo: January 26, 2020 - Exam #: [id number] Bilateral CC and MLO view(s) were taken. Technologist: Wendie Tapia, Technologist Prior study comparison: June 29, 2017, digital mammo diagnostic bilateral, performed at [facility]. September 12, 2016, digital bilateral screening mammo, performed at [facility]. FINDINGS: The breast tissue is heterogeneously dense. This may lower the sensitivity of mammography. There has been no change in the appearance of the mammogram from the prior studies. There is a moderate amount of residual fibroglandular tissue which is fairly symmetric. There is no interval development of dominant mass, areas of architectural distortion, or clustered microcalcification typical of malignancy. Assessment: BI-RADS/ACR category 1 mammogram. Negative Mammogram. Recommendation Routine screening mammogram in 1 year (for women over age 40). This mammogram was interpreted with the aid of an FDA-approved computer-aided dectection system. Electronically Signed By: Danish Gil MD 01/26/20 [id number]
== END ==
LOC: M WHC 14:13
PROVIDERS: ATTEND Family Medicine
DX: Z00.01 Encounter for general adult medical examination with abnormal findings (principal); Z12.31 Encounter for screening mammogram for malignant neoplasm of breast

== ENCOUNTER → 2020-03-04 | Outpatient (CLI) | payer OTHER ==
[~2020-03-04] MED LIST changes: +E-Z-GAS II EFFERVESCENT PACKET (SODIUM BICARB./CITRIC ACID/SIMETHICONE) As Ordered ONE; +E-Z-HD 98% w/w 340GM SUSP BTL As Ordered ONE; +E-Z-PAQUE 96% w/w SUSP 176GM BTL As Ordered ONE
--- NOTE | 2020-03-09 07:54 | REP ---
UPPER GI AIR CONTRAST AND SMALL BOWEL FOLLOW-THROUGH The procedure was performed by AMANUEL Barger, under the direct supervision of Dr. Gil. The images were reviewed with Dr. Gil prior to dictation. The supervisor electronics assembly film shows no organomegaly or pathological masses. The intestinal gas pattern is nonspecific. Liquid barium and gas-producing crystals were given in the erect position, as well as liquid barium in the prone oblique position, in order to perform a double-contrast upper GI examination. Additional liquid barium was given at the end of the exam in order to perform a small bowel follow-through. The oral and pharyngeal stages of deglutition were unremarkable. Esophageal transport was prompt and efficient. There is a small Zenker's diverticulum. There was no esophagitis, stricture, or mucosal ring. There is a small hiatal hernia. No gastroesophageal reflux was visualized during the exam. The stomach chandra are normally outlined. The rugal folds are smooth and regular. There is no gastritis, neoplasm, or ulcer disease. The duodenal chandra are normally outlined. The mucosal folds are smooth and regular. There is no duodenitis, ulcerative disease, or neoplasm. The visualized portion of the proximal small bowel appears normal in course and caliber. The barium column was followed through the small bowel to the level of the terminal ileum. The small bowel transit time was less than 20 minutes. During fluoroscopy, gentle palpation shows all the loops to be freely movable and pliable. There are no fixed or angulated loops. The small bowel mucosal pattern is normal in course and caliber. There is no transition to suggest a small bowel obstruction. The appendix was visualized. Spot filming of the terminal ileum shows it to be unremarkable. IMPRESSION: * Small Zenker's diverticulum. * Small hiatal hernia. * Small bowel transit time less than 20 minutes. 0.9 minutes of fluoroscopy time was utilized for this procedure. [facility]
== END ==
LOC: M RAD 08:10
PROVIDERS: ATTEND Internal Medicine Gastroenterology
DX: R93.3 Abnormal findings on diagnostic imaging of other parts of digestive tract (principal); K22.5 Diverticulum of esophagus, acquired; K44.9 Diaphragmatic hernia without obstruction or gangrene

== ENCOUNTER → 2020-03-18 | Outpatient (REF) | payer OTHER ==
[~2020-03-18] MED LIST changes: -E-Z-GAS II EFFERVESCENT PACKET (SODIUM BICARB./CITRIC ACID/SIMETHICONE) As Ordered ONE; -E-Z-HD 98% w/w 340GM SUSP BTL As Ordered ONE; -E-Z-PAQUE 96% w/w SUSP 176GM BTL As Ordered ONE
[2020-03-18 18:20] LABS: BASO % 0.9 % (0.0-1.0); EOS # 0.1 10^3/uL (0.0-0.5); EOS % 1.9 % (0.0-3.0); HEMATOCRIT 40.8 % (36.0-47.0); HEMOGLOBIN 13.3 g/dl (12.0-15.5); LYMPH # 1.1 10^3/uL (1.5-5.0); LYMPH % 25.8 % (24.0-44.0); MEAN CORPUSCULAR HEMOGLOBIN 31.5 pg (27.0-33.0); MEAN CORPUSCULAR HGB CONC 32.6 g/dl (32.0-36.5); MEAN CORPUSCULAR VOLUME 96.7 fl (80.0-96.0); MONO # 0.3 10^3/uL (0.0-0.8); MONO % 6.8 % (0.0-5.0); NEUTROPHILS # 2.7 10^3/uL (1.5-8.5); NEUTROPHILS % 64.1 % (36.0-66.0); PLATELET COUNT, AUTOMATED 252 10^3/uL (150-450); RED BLOOD COUNT 4.22 10^6/uL (4.00-5.40); WHITE BLOOD COUNT 4.3 10^3/uL (4.0-10.0)
[2020-03-18 18:48] LABS: ALBUMIN 3.7 GM/DL (3.2-5.2); BILIRUBIN,TOTAL 0.3 MG/DL (0.2-1.0); CALCIUM LEVEL 8.8 MG/DL (8.5-10.1); CHOLESTEROL RISK RATIO 2.12 (<5); CREATININE FOR GFR 1.02 MG/DL (0.55-1.30); FREE T4 0.9 NG/DL (0.76-1.46); GLOMERULAR FILTRATION RATE 59.9 (>51); POTASSIUM SERUM 5.4 MEQ/L (3.5-5.1); THYROID STIMULATING HORMONE 2.71 uIU/ML (0.358-3.740); TOTAL 25(OH) VITAMIN D 25.2 NG/ML (30.0-100.0); TOTAL PROTEIN 6.8 GM/DL (6.4-8.2)
[2020-03-18 18:55] LABS: HEMOGLOBIN A1c 4.9 %
== END ==
LOC: M LAB REF 16:38
PROVIDERS: ATTEND Nurse Practitioner Family
DX: K29.70 Gastritis, unspecified, without bleeding (principal); E78.5 Hyperlipidemia, unspecified; Z13.9 Encounter for screening, unspecified; R79.89 Other specified abnormal findings of blood chemistry; E55.9 Vitamin D deficiency, unspecified; I10 Essential (primary) hypertension; F41.8 Other specified anxiety disorders; Z72.0 Tobacco use

== ENCOUNTER → 2020-08-04 | Outpatient (REF) | payer OTHER ==
[~2020-08-04] MED LIST changes: +ESCI10TA16 PO; -ESCI10TA2 PO; -ESCI20TA PO; +ESCI20TA16 PO; +GABA-282 PO; -GABA-843 PO; +ISOS1TAB35 PO; -ISOS30TA4 PO; -LISI-538 PO; +LISI10TA22 PO; -LISI10TA4 PO; +LISI20TA33 PO; +PLEC3TAB PO; -TRUL3TAB PO
[2020-08-04 18:31] LABS: BASO % 0.5 % (0.0-1.0); EOS # 0.1 10^3/uL (0.0-0.5); EOS % 1.5 % (0.0-3.0); HEMATOCRIT 37.4 % (36.0-47.0); HEMOGLOBIN 12.2 g/dl (12.0-15.5); LYMPH % 24.8 % (24.0-44.0); MEAN CORPUSCULAR HEMOGLOBIN 32.7 pg (27.0-33.0); MEAN CORPUSCULAR HGB CONC 32.6 g/dl (32.0-36.5); MEAN CORPUSCULAR VOLUME 100.3 fl (80.0-96.0); MONO # 0.3 10^3/uL (0.0-0.8); MONO % 8.2 % (2.0-8.0); NEUTROPHILS # 2.6 10^3/uL (1.5-8.5); NEUTROPHILS % 64.3 % (36.0-66.0); PLATELET COUNT, AUTOMATED 225 10^3/uL (150-450); RED BLOOD COUNT 3.73 10^6/uL (4.00-5.40)
[2020-08-04 18:55] LABS: ALBUMIN 3.8 GM/DL (3.2-5.2); ALT/SGPT 21 U/L (12-78); BILIRUBIN,TOTAL 0.2 MG/DL (0.2-1.0); BLOOD UREA NITROGEN 22 MG/DL (7-18); CALCIUM LEVEL 8.7 MG/DL (8.5-10.1); CARBON DIOXIDE LEVEL 29 MEQ/L (21-32); CHLORIDE LEVEL 109 MEQ/L (98-107); CHOLESTEROL LEVEL 221 MG/DL (<200); CHOLESTEROL RISK RATIO 2.728 (<5); CREATININE FOR GFR 0.97 MG/DL (0.55-1.30); GLOMERULAR FILTRATION RATE > 60.0 (>51); GLUCOSE, FASTING 103 MG/DL (70-100); HDL CHOLESTEROL 81 MG/DL (>40); LDL CHOLESTEROL 117 MG/DL (<100); MAGNESIUM LEVEL 1.8 MG/DL (1.8-2.4); NON-HDL-C 140 MG/DL; POTASSIUM SERUM 4.5 MEQ/L (3.5-5.1); SODIUM LEVEL 141 MEQ/L (136-145); TOTAL PROTEIN 6.4 GM/DL (6.4-8.2); TRIGLYCERIDES LEVEL 116 MG/DL (<150)
[2020-08-04 19:03] LABS: TOTAL 25(OH) VITAMIN D 21.1 NG/ML (30.0-100.0)
== END ==
LOC: M LAB REF 16:31
PROVIDERS: ATTEND Nurse Practitioner Family
DX: I10 Essential (primary) hypertension (principal); R73.03 Prediabetes; E78.5 Hyperlipidemia, unspecified

== ENCOUNTER 2020-09-10 07:53 | Emergency (ER) | payer OTHER ==
[~2020-09-10] VITALS: Ht 160 cm; Wt 63.6 kg
[2020-09-10] MEDS ORDERED: NS 1,000 ML IV ONE (08:20)
--- NOTE | 2020-09-10 09:33 | REP ---
INDICATION: DYSPNEA/COUGH. COMPARISON: Comparison chest x-ray October 04. TECHNIQUE: Portable upright AP chest radiograph. FINDINGS: The lungs are well inflated and free of infiltrate. Pleural angles are sharp. Heart size is normal. Pulmonary vasculature is not increased. EKG monitoring electrodes are seen. No acute bony abnormality. IMPRESSION: No active disease. <Electronically signed by Marty Castrejon > 09/10/20 0929
[2020-09-10 09:39] LABS: BASO % 0.8 % (0.0-1.0); EOS # 0.1 10^3/uL (0.0-0.5); EOS % 1.3 % (0.0-3.0); HEMATOCRIT 38.6 % (36.0-47.0); HEMOGLOBIN 12.8 g/dl (12.0-15.5); LYMPH # 1.1 10^3/uL (1.5-5.0); LYMPH % 20.9 % (24.0-44.0); MEAN CORPUSCULAR HEMOGLOBIN 32.2 pg (27.0-33.0); MEAN CORPUSCULAR HGB CONC 33.2 g/dl (32.0-36.5); MEAN CORPUSCULAR VOLUME 97.2 fl (80.0-96.0); MONO # 0.5 10^3/uL (0.0-0.8); MONO % 9.4 % (2.0-8.0); NEUTROPHILS # 3.6 10^3/uL (1.5-8.5); PLATELET COUNT, AUTOMATED 273 10^3/uL (150-450); RED BLOOD COUNT 3.97 10^6/uL (4.00-5.40); WHITE BLOOD COUNT 5.3 10^3/uL (4.0-10.0)
[2020-09-10 09:46] LABS: INR 0.95; PROTHROMBIN TIME 12.8 SECONDS (12.5-14.3)
[2020-09-10 10:13] LABS: ALBUMIN 4.4 GM/DL (3.2-5.2); ALT/SGPT 29 U/L (12-78); BILIRUBIN,DIRECT 0.2 MG/DL (0.0-0.2); BILIRUBIN,TOTAL 0.7 MG/DL (0.2-1.0); BLOOD UREA NITROGEN 15 MG/DL (7-18); CALCIUM LEVEL 9.8 MG/DL (8.5-10.1); CARBON DIOXIDE LEVEL 31 MEQ/L (21-32); CHLORIDE LEVEL 100 MEQ/L (98-107); CK-MB VALUE MASS 10.5 NG/ML (<3.6); CPK CREATINE PHOSPHOKINASE 690 U/L (26-192); CREATININE FOR GFR 0.94 MG/DL (0.55-1.30); GLOMERULAR FILTRATION RATE > 60.0 (>51); GLUCOSE, FASTING 90 MG/DL (70-100); MB/CK RELATIVE INDEX 1.52 (< OR =4); POTASSIUM SERUM 3.6 MEQ/L (3.5-5.1); SODIUM LEVEL 135 MEQ/L (136-145); THYROXINE (T4) 9.2 UG/DL (4.5-12.0); TOTAL PROTEIN 7.8 GM/DL (6.4-8.2); TROPONIN I 0.02 NG/ML (< 0.10)
[2020-09-10] MEDS ORDERED: ISOVUE-370 76% 100ML VIAL As Ordered ONE (10:50)
--- NOTE | 2020-09-10 11:33 | REP ---
INDICATION: abdominal pain. COMPARISON: Multiple the latest 12/11/2019 TECHNIQUE: Standard helical technique after the intravenous administration of 100 cc Isovue 370 a. No oral bowel preparatory contrast was administered prior to the exam. FINDINGS: There is a new asymmetric density in the right lung CP angle which measures 2 cm. A smaller but similar appearing density is seen in the anterobasilar segment of the right lower lobe. A minimal ground-glass opacity is seen in the right middle lobe measuring 2 cm. There are no pleural or pericardial effusions. The liver, gallbladder, spleen, pancreas, adrenal glands, and kidneys are within normal limits. The abdominal aorta and para-regions are within normal limits. The bowel loops and the mesenteries are within normal limits. There is no free fluid or free air. There is no mass or adenopathy. The imaged osseous structures are within normal limits. IMPRESSION: New right lung opacities as described above. Subsegmental atelectasis versus developing patchy pneumonia. This needs to be correlated clinically. The examination is otherwise unremarkable. <Electronically signed by Robles Presley > 09/10/20 [id number]
[2020-09-10] MEDS ORDERED: COMBIVENT RESPIMAT 100-20MCG INHALER 4GM INH PRN (11:35)
[2020-09-10] MEDS ORDERED: BUSP10TA (12:04)
[2020-09-10] MEDS ORDERED: TRAZ1TAB14 (12:04)
[2020-09-10] MEDS ORDERED: QUET50TA3 (12:04)
[2020-09-10] MEDS ORDERED: NAPR-885 (12:04)
[2020-09-10] MEDS ORDERED: cloNIDine 0.1MG TABLET PO ONE (12:30)
[2020-09-10 13:13] VITALS: BP 188/112
[2020-09-10 15:03] VITALS: BP 126/80
--- NOTE | 2020-09-10 19:52 | ECGEPIP ---
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
--- NOTE | 2020-09-16 08:55 | ED PDOC ---
Post-Departure Follow-Up radiology report faxed to Karen Cisse MD Sep 16, 2020 08:55
== END 2020-09-10 15:06 | disposition home or self-care (01) ==
LOC: EDBD 07:53 → M ED 07:53
DX: R10.9 Unspecified abdominal pain (principal); F15.20 Other stimulant dependence, uncomplicated; I10 Essential (primary) hypertension; J44.9 Chronic obstructive pulmonary disease, unspecified; J45.909 Unspecified asthma, uncomplicated; B19.20 Unspecified viral hepatitis C without hepatic coma; Z79.899 Other long term (current) drug therapy; Z79.82 Long term (current) use of aspirin; Z88.8 Allergy status to other drugs, medicaments and biological substances; Z91.040 Latex allergy status; Z91.048 Other nonmedicinal substance allergy status
CPT/HCPCS: 71045; 74177; 80048; 80076; 81001; 82550; 82553; 83605; 84436; 84443; 85025; 85610; 87040; 87798; 93005; 93041; 94640; 94760; 96360; 99285; Q9967

== ENCOUNTER → 2020-10-21 | Outpatient (CLI) | payer OTHER ==
[~2020-10-21] MED LIST changes: +BUSP10TA; +GABA-283 PO; -GABA-845 PO; +NAPR-885; +QUET50TA3; +TRAZ1TAB14
--- NOTE | 2020-10-21 14:41 | REP ---
INDICATION: CHRONIC OBSTRUCTIVE PULMONARY DISEASE, UNSPECIFIED COMPARISON: 09/10/2020 TECHNIQUE: PA and lateral. FINDINGS: The mediastinum and cardiac silhouette are normal. The lung montero are clear and without acute consolidation, effusion, or pneumothorax. The skeletal structures are intact and normal. IMPRESSION: No acute cardiopulmonary process. <Electronically signed by Adams Whitmore > 10/21/20 [id number]
== END ==
LOC: M RAD 14:19
PROVIDERS: ATTEND Nurse Practitioner Family
DX: J44.9 Chronic obstructive pulmonary disease, unspecified (principal)

== ENCOUNTER → 2020-11-10 | Outpatient (REF) | payer OTHER ==
[~2020-11-10] MED LIST changes: +OMEP40CA4 PO; -OMEP40CA97 PO
[2020-11-10 18:30] LABS: BACTERIA, URINE AUTO NEGATIVE (NEGATIVE); CALCIUM OXALATE CRYSTALS LARGE; MUCUS, URINE SMALL (NEGATIVE); RBC, URINE AUTO 4 /HPF (0-3); SQUAMOUS EPITHELIAL CELL UR AU 1 /HPF (0-6); WBC, URINE AUTO 3 /HPF (0-3)
== END ==
LOC: M SMT 16:59
PROVIDERS: ATTEND Specialist
DX: R10.2 Pelvic and perineal pain (principal)

== ENCOUNTER → 2020-12-11 | Outpatient (CLI) | payer OTHER ==
--- NOTE | 2020-12-12 16:45 | REPVR ---
PROCEDURE INFORMATION: Exam: MR Lumbar Spine Without Contrast Exam date and time: 12/11/2020 3:31 PM Age: 55 years old Clinical indication: Lumbar radiculopathy TECHNIQUE: Imaging protocol: Multiplanar magnetic resonance images of the lumbar spine without intravenous contrast. COMPARISON: MRI-Spine, L.S. without con 01/21/2018 7:11 AM FINDINGS: Vertebral body heights are maintained. No abnormal marrow signal. No cord compression. No abnormal cord signal. Conus medullaris terminates at the L2 level. Paravertebral soft tissues are unremarkable. L1-L2: Left foraminal disc protrusion causes mild left foraminal narrowing. No significant canal narrowing L2-L3: No significant canal or foraminal narrowing. L3-L4: No significant canal or foraminal narrowing. L4-L5: Slight broad-based disc bulge and mild facet hypertrophy causes mild right foraminal narrowing. No significant canal narrowing. L5-S1: Central disc protrusion without significant canal narrowing. No significant foraminal narrowing. IMPRESSION: 1. No acute findings in the lumbar spine. No evidence of nerve root compression. 2. Chronic findings, as above. Electronically signed by: Soham Bronson On 12/12/2020 16:44:16 PM
== END ==
LOC: M RAD 14:45
PROVIDERS: ATTEND Pain Medicine Interventional Pain Medicine
DX: M54.16 Radiculopathy, lumbar region (principal)

== ENCOUNTER → 2021-01-07 | Outpatient (CLI) | payer OTHER ==
[~2021-01-07] MED LIST changes: -QUET50TA3; +QUET50TA4
--- NOTE | 2021-01-07 12:44 | REP ---
INDICATION: OTHER NONSPECIFIC ABN FINDING OF LUNG FIELD. COMPARISON: PA and lateral plain film studies dated 01/02/2017 and 01/01/2017 TECHNIQUE: Chest CT without IV contrast. FINDINGS: There are no infiltrates. There are no pleural effusions. There are no lung masses or nodules. There is no mediastinal or axillary lymphadenopathy. The study is insensitive for hilar lymphadenopathy in the absence of IV contrast. The unenhanced thoracic aorta is unremarkable except for a small calcific atheromatous plaque. Cardiac size is normal. There is no pericardial effusion. There is a small atheromatous calcification in the anterior descending coronary artery. Upper abdomen: The visualized hepatic parenchyma, gallbladder, pancreas and spleen are unremarkable. The unenhanced adrenals and renal upper poles are unremarkable. IMPRESSION: No lung masses or nodules are identified. No infiltrates or pleural effusions are identified. No adenopathy is identified. Otherwise, negative CT of the chest without IV contrast. <Electronically signed by Danish Alvarado > 01/07/21 [id number]
== END ==
LOC: M RAD 11:57
PROVIDERS: ATTEND Nurse Practitioner Family
DX: R91.8 Other nonspecific abnormal finding of lung field (principal)

== ENCOUNTER → 2021-02-17 | Outpatient (CLI) | payer OTHER ==
[~2021-02-17] MED LIST changes: +METHACHOLINE KIT (J7674) INH ONE
--- NOTE | 2021-02-17 14:56 | PFTRPT ---
Site: [facility], [address] [place], [address] ID: [id number] Name: MARYSE CARNEY Visit Date: 02/17/2021 Second ID: [id number] Referring Doctor: JIMBO CURTIS Reviewing Doctor: Cricket Gallagher MD Passport Support Manager: Jean Paul ROSENBERG RRT Age: 56 : 1965 Sex: Female Race: Height: 59.00 Inches Weight: 123.00 Lbs BSA: 1.50 Order IDs: [id number] Requested Test(s): <RESP-PFT.METH CHAL> Diagnosis: R05 of albuterol for post bronchodilator. Review Status: Not Reviewed Pre-Bronch Post-Bronch Pred Actual %Pred Actual %Chng SPIROMETRY FVC (L) 2.75 2.21 80 2.15 -2 FEV1 (L) 2.17 1.65 76 1.56 -5 FEV1/FVC (%) 80 75 93 72 -2 FEF 25% (L/sec) 4.55 3.48 76 3.04 -12 FEF 50% (L/sec) 3.75 1.59 42 1.30 -18 FEF 75% (L/sec) 1.30 0.46 35 0.41 -10 FEF 25-75% (L/sec) 2.32 1.23 53 0.96 -22 FEF Max (L/sec) 5.47 4.34 79 4.01 -7 FIVC (L) 2.29 2.10 -8 FIF 50% (L/sec) 3.26 3.64 111 3.07 -15 FIF Max (L/sec) 3.64 3.08 -15 Expiratory Time (sec) 6.95 6.29 -9 Back Extrap Vol (L) 0.06 0.04 -32 Time To FEFmax (sec) 0.075 0.068 -9
== END ==
LOC: M CARPUL 14:09
PROVIDERS: ATTEND Nurse Practitioner Family
DX: R05 Cough (principal)
CPT/HCPCS: 94070; 95070; J7674

== ENCOUNTER → 2021-03-07 | Outpatient (CLI) | payer OTHER ==
[~2021-03-07] MED LIST changes: -METHACHOLINE KIT (J7674) INH ONE
[2021-03-07 15:22] LABS: CALCIUM LEVEL 8.9 MG/DL (8.5-10.1); CREATININE FOR GFR 1.49 MG/DL (0.55-1.30); GLOMERULAR FILTRATION RATE 38.5 (>51); POTASSIUM SERUM 3.6 MEQ/L (3.5-5.1)
== END ==
LOC: M LAB 11:36
PROVIDERS: ATTEND Specialist
DX: R30.0 Dysuria (principal); F17.200 Nicotine dependence, unspecified, uncomplicated

== ENCOUNTER 2021-03-08 13:29 | Emergency (ER) | payer OTHER ==
[~2021-03-08] VITALS: Ht 154.9 cm; Wt 55.5 kg
[2021-03-08 13:29] VITALS: BP 109/70
== END 2021-03-08 20:03 | disposition left against medical advice (07) ==
LOC: M ED 13:29
DX: Z53.29 Procedure and treatment not carried out because of patient's decision for other reasons (principal)

== ENCOUNTER → 2021-03-16 | Outpatient (CLI) | payer OTHER ==
--- NOTE | 2021-03-16 15:26 | REP ---
INDICATION: ELEVATED LABS. COMPARISON: None. TECHNIQUE: Real-time sonographic evaluation of the kidneys with Doppler FINDINGS: Multiple ultrasonographic images of the right kidney show the right kidney to measure 9.1 x 4.6 x 3.9 cm. The renal cortical echotexture is unremarkable. There are no masses. There is good corticomedullary differentiation. There is no hydronephrosis. There are no perinephric fluid collections. Multiple ultrasonographic images of the left kidney show the left kidney to measure 8.8 x 5.2 x 4 cm. The renal cortical echotexture is unremarkable. There are no masses. There is good corticomedullary differentiation. There is no hydronephrosis. There are no perinephric fluid collections. IMPRESSION: Unremarkable renal ultrasonography. <Electronically signed by Robles Presley > 03/16/21 [id number]
== END ==
LOC: M RAD 13:10
PROVIDERS: ATTEND Specialist
DX: R79.89 Other specified abnormal findings of blood chemistry (principal)

== ENCOUNTER 2021-05-03 19:07 | Emergency (ER) | payer OTHER ==
[~2021-05-03] VITALS: Ht 154.9 cm; Wt 56.6 kg
[2021-05-03 19:11] VITALS: BP 181/105
--- OUTSIDE RECORDS SUMMARY | 2021-05-03 19:23 | CCD ---
Author Author [facility] [employer] [facility] [employer] Organization [facility] [employer] Address Unknown Phone Unavailable Care Team Providers Care Dining Room Server Name Role Phone Afia Wilkinson Unavailable PROBLEMS Type Condition ICD9-CM Code ACB57-FM Code Onset Dates Condition S tatus W/U Status Risk SNOMED Code Notes Problem Chronic hepatitis C without hepatic coma B18.2 Active confirmed 952539936 Problem Essential hypertension I10 Active confirmed 77837340 Problem Gastroesophageal reflux disease, esophagitis pre sence not specified K21.9 Active confirmed 897681026 Problem Degenerative disc disease, lumbar M51.36 Active confirmed 63904276 Problem Slow transit constipation K59.01 Active confirmed 32067309 Problem Vitamin D deficiency E55.9 Active confirmed 74029606 Problem Sacroiliitis, not elsewhere classified M46.1 A ctive confirmed 55781616 Problem Pulmonary emphysema, unspecified emphysema type J4 3.9 Active confirmed 02828598 Problem Atrophic vaginitis N95.2 Active confirmed 5 1950165 Problem Psychophysiological insomnia F51.04 Active confirme d 816017856 Problem Tobacco use disorder F17.200 Active confirmed 409134111 Problem Single current episode of [place] depressive disorder, unspecified depression episode severity F32.9 Active confirmed 26 5063493 Problem Other chronic pain G89.29 Active confirmed 8 3138857 Problem Common bile duct dilation K83.8 Active confirmed 854381271 Problem Allergic rhinitis, unspecified seasonality, unspecifie d trigger J30.9 Active confirmed 34845455 Problem Cigarette nicotine dependence without complication F17.210 Active confirmed 36368395 ALLERGIES Allergen (clinical drug ingredient) Drug/Non Drug Allergy do cumented on EMR Reaction Allergy Type Onset Date Status varenicline Chantix Rash Drug Allergy Active Tape rash Drug Allergy Active Baclofen ringing in the ears Drug Allergy Act bunny ENCOUNTERS from 1965 to 2021-03-29 Encounter Location Date Provider Diagnosis [facility] [phone] [place] [address] Mar, Afia Jaja IMMUNIZATIONS Vaccine Route Administration Date Status Influenza 6mo & up Fluzone IM Intramuscular Apr 23, 2017 Admi nistered SOCIAL HISTORY Tobacco Use: Social History Observation Description Date Details (start date - stop date) Current Smoker Sex Assigned At : Social History Observation Description Sex Assigned At Unknown Education: Question Answer Notes Level of Education: High School Language: Question Answer Notes Languages spoken: Both Bulgarian and Lithuanian Sikh: Question Answer Notes Sikh 14 Sikhism No sikh beliefs that would impact health care. Sexual Hx: Question Answer Notes Had sex in the last 12 months (vaginal, oral, or anal)? No Have you ever had an STD? No Alcohol Screening: Question Answer Notes Did you have a drink containing alcohol in the past year? Ye s Points 3 Interpretation Positive How many drinks did you have on a typica l day when you were drinking in the past year? 5 or 6 (2 points) How often did you have a drink containing alcohol in t he past year? Monthly or less (1 point) Tobacco Use: Question Answer Notes Are you a: current smoker Smoking Cessation Information Given 06/12/2018 Patient counseled on the dangers of tobacco use and urged to quit: 06/12/2018 How many cigarettes a day do you smoke? 5 or less Are you interested in quitting? Thinking about quitting Carrillo salgado nicoderakiko patches Counseled the patient on smoking cessation, education provid ed 06/12/2018 REASON FOR REFERRAL No Information VITAL SIGNS No information MEDICATIONS Medication SIG (Take, Route, Frequency, Duration) Notes Start Da te End Date Status Premarin 0.625 MG/GM as directed Vaginal 1 gm int ravaginally nightly for 2 weeks then 3x weekly for 90 days Oct, Activ e Mirtazapine 7.5 MG 1 tab Orally before bedtime Not-Taking Lisinopril 10 MG 1 tablet Orally Once a day for 30 Active Fluticasone Propionate 50 MCG/ACT 1 spray in each nost ril Nasally Once a day for 30 day(s) May, Active Isosorbide Mononitrate 10 MG 1 tablet Orally Once a day Not-Taking busPIRone HCl 15 MG 1 tablet Orally Twice a day Active Ventolin HFA 108 (90 Base) MCG/ACT 2 puffs as needed I nhalation every 4 hrs for 30 days Active AirDuo RespiClick 113/14 113-14 MCG/ACT 1 puff Inhalat ion Twice a day for 30 days Oct, Active Ibuprofen 600 MG 1 tablet with food or milk Orally Three times a day Not-Taking Pantoprazole Sodium 40 MG 1 tablet Orally Once a day for 30 days Not-Taking oxyCODONE HCl 5 MG 1 tablet as needed Orally Twice daily Not-Taking Aspirin Adult Low Dose 81 MG 1 tablet Orally Daily for 30 days Active Diflucan 150 MG 1 tablet Orally once but can repeat if symptoms not resolved for 1 days Feb, Active MiraLax - 1 packet mixed with 8 ounces of fluid Orally Once a day Not-Taking Escitalopram Oxalate 20 MG 1 tablet Orally Once a day 2017 Active Flagyl 500 MG 1 tablet Orally Three times a day for 10 day(s) Oct, Active Nicoderm CQ 7 MG/24HR 1 patch to skin Transdermal Once a day for 30 day(s) May, Not-Taking traZODone HCl 100 MG 2 tablets Orally daily before bedtime Active Pyridium 100 MG 1 tablets after meals Orally 3x a day as needed for burning for 14 day(s) Oct, Active PROCEDURES No Information RESULTS No Results REASON FOR VISIT US results MEDICAL (GENERAL) HISTORY Type Description Date Medical History Hypertension Medical History GERD Medical History Asthma Medical History Chest pain - Dr. 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 Noyola Rx 03/2017 with 12 weeks zepatier Medical History Chronic low back pain - [facility] Medical History Depression Medical History Insomnia Medical History History of vitamin D deficiency Medical History Regadenosen SPECT Nuclear st ress test 06/22/17 at [facility] - normal; Dr. Bear Medical History ASCVD risk 3.7% in 06/2017 Surgical History left ankle and lower leg surgery due to fracture 1994 Surgical History 3 Surgical History hysterectomy for menorrhagia Surgical History right shoulder torn rotator cuff Surgical History Hernia repairs x3 in the past Surgical History Hernia repair - Dr. Youssef 07/2017 Surgical History Colonoscopy - normal, repeat in 5 years; Dr. Youssef 01/2018 Hospitalization History surgery related Goals Section No Information Health Concerns No Information MEDICAL EQUIPMENT No Information MENTAL STATUS No Information FUNCTIONAL STATUS No Information ASSESSMENTS No Information PLAN OF TREATMENT Medication Medication Name Sig Start Date Stop Date Diflucan 150 MG 1 tablet Orally once but can repeat if symptoms not resolved for 1 days Feb, Next Appt Details Provider Name:Noa Suazo Carl, 11:00:00 AM, [address], , [place], [address], Insurance Providers Payer Name Payer Address Payer Phone Insured Name Patient Relati onship to Insured Coverage Start Date Coverage End Date [facility] [employer] [facility] [address] [facility] [phone] MARYSE CARNEY self
--- OUTSIDE RECORDS SUMMARY | 2021-05-03 19:23 | CCD ---
Author Organization Unknown Address [address] [place] [address] Phone [phone] Care Team Providers Care Hospice Liaison Name Role Phone JASWINDER DEWEY MD 3 [phone] Allergies Code Code System Name Reaction Severity Status Onset 6201689 RxNorm Latex Rash Mild to Moderate Active Medications Name Status Start Date Stop Date albuterol sulfate HFA 90 mcg/actuation a erosol inhaler INHALE ONE PUFF BY MOUTH THREE TO FOUR TIMES DAILY NEEDED Active Not available amlodipine 5 mg tablet TAKE ONE TABLET BY MOUTH EVERY DAY Active Not available aspirin 81 mg tablet,delayed release TAKE ONE TABLET BY MOUTH EVERY DAY Active Not available buspirone 10 mg tablet TAKE ONE TABLET BY MOUTH TWICE A DAY Active No t available Constulose 10 gram/15 mL oral solution TAKE 30ML BY MOUTH TWO TIMES A DAY FOR CONSTIPATION Active Not available escitalopram 20 mg tablet TAKE ONE TABLET BY MOUTH EVERY DAY Active Not available fluconazole 150 mg tablet TAKE 1 TABLET BY MOUTH ONCE BUT CAN REPEAT IF SYMPTOMS NOT RESOLVED IN 1 DAY Active Not available fluticasone 113 mcg-salmeterol 14 mcg/ac tuation breath activated powdr INHALE ONE PUFF BY MOUTH TWICE A DAY Active No t available lisinopril 20 mg tablet TAKE ONE TABLET BY MOUTH EVERY DAY Active Not available methocarbamol 500 mg tablet Take 1 tablet 3 times a day by oral route as needed. Active Not available metronidazole 500 mg tablet TAKE ONE TABLET BY MOUTH THREE TIMES A DAY Active Not available mirtazapine 15 mg tablet TAKE ONE TABLET BY MOUTH AT BEDTIME Completed mirtazapine 30 mg tablet TAKE ONE TABLET BY MOUTH AT BEDTIME Completed mirtazapine 7.5 mg tablet TAKE ONE TABLET BY MOUTH AT BEDTIME Completed naproxen 500 mg tablet TAKE ONE TABLET BY MOUTH TWICE A DAY NEEDED Active Not available nicotine 21 mg/24 hr daily transdermal p atch APPLY ONE PATCH TO THE SKIN EVERY DAY Active N ot available pantoprazole 40 mg tablet,delayed releas e TAKE ONE TABLET BY MOUTH DAILY Active Not avai lable phenazopyridine 100 mg tablet TAKE 1 TABLET THREE TIMES A DAY AFTER MEALS NEEDED FOR BURNING Active Not available quetiapine 50 mg tablet TAKE ONE TABLET BY MOUTH AT BEDTIME Active Not available sucralfate 1 gram tablet TAKE ONE TABLET BY MOUTH FOUR TIMES A DAY ON AN EMPTY STOMACH 1 HOUR BEFORE MEALS AND AT BEDTIME Active Not available tizanidine 4 mg tablet TAKE ONE TABLET BY MOUTH THREE TIMES A DAY NEEDED Active Not available trazodone 100 mg tablet TAKE TWO TABLETS BY MOUTH AT BEDTIME Completed trazodone 150 mg tablet TAKE ONE TABLET BY MOUTH AT BEDTIME Active Not available Trulance 3 mg tablet TAKE ONE TABLET BY MOUTH EVERY DAY FOR IBS WITH CONSTIPATION Active Not available Problems None recorded. Procedures Date Name Performed by 05/28/2008 Hernia Repair W/mesh Notes: 2009 Information not available 05/28/1990 Closed Reduction of Fracture of Phalanges of Foot with Internal Fixation Notes: left ankle Information not available 05/28/1990 Section Information not avai lable 09/20/2020 MRI, Lumbar Spine, W/o Contrast [facility] [address] [place] [address] (Work Place) 11/15/2020 MRI, Lumbar Spine, W/o Contrast [facility] [address] [place] [address] (Work Place) Results Lab Results Date Name Specimen Result Interpretation Description Value Range Status Address 02/07/2021 [facility] Pdf Report NOS No observation recorded. [facility]: [address] [facility], [place] 02/07/2021 SARS CoV 2 RNA (COVID-19), QL, inspector filters-PCR, Respirat ory Specimen NOS Normal Sars-cov-2 negative negative Final [facility]: [address] [facility] [place] 02/02/2021 SARS CoV 2 RNA (COVID-19), QL, inspector filters-PCR, Respiratory Sp ecimen Other No observation recorded. [facility]: [address] [facility], [place] 01/21/2021 [facility] Pdf Report NOS No observation recorded. [facility]: [address] [facility] [place] 01/21/2021 SARS CoV 2 RNA (COVID-19), QL, inspector filters-PCR, Respirat ory Specimen NOS Normal Sars-cov-2 negative negative Final [facility]: [address] [facility] [address], [place] Past Encounters 03/30/2021 Lumbar Radiculopathy; Lumbosacral Spondylosis without Myelopathy; Myofascial Pain; Degeneration of Lumbar Intervertebral Disc; Degeneration of Lumbosacral Intervertebral Disc; Displacement of Lumbar Intervertebral Disc without Myelopathy; Intervertebral Disc Disorder; Spondylosis without Myelopathy Brianna Rangel FI[employer] 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 03/15/2021 Myofascial Pain; Lumbar Radiculopathy; Lumbosacral Spondylosis without Myelopathy; Degeneration of Lumbar Intervertebral Disc; Degeneration of Lumbosacral Intervertebral Disc; Displacement of Lumbar Intervertebral Disc without Myelopathy; Intervertebral Disc Disorder; Spondylosis without Myelopathy Antonino Douglas MD: [address] [address], [facility] [place] [address], Ph. 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 02/10/2021 Lumbar Radiculopathy; Degeneration of Lumbar Intervertebral Disc; Degeneration of Lumbosacral Intervertebral Disc; Displacement of Lumbar Intervertebral Disc without Myelopathy; Intervertebral Disc Disorder; Spondylosis without Myelopathy; Lumbosacral Spondylosis without Myelopathy; Myofascial Pain Antonino Douglas MD: [id number] [address], [place] [address], Ph. 02/07/2021 Pre-surgery Testing; Viral Screening Antonino Douglas MD: [address] [address], [facility] [place] [address], Ph. [phone] 02/02/2021 Pre-surgery Testing; Viral Screening Antonino Douglas MD: [id number] [address], [place] [address], Ph. [phone] 01/21/2021 Pre-surgery Testing; Viral Screening Antonino Douglas MD: [address] [address], [facility] [place] [address], Ph. [phone] 01/17/2021 Lumbar Radiculopathy; Lumbosacral Spondylosis without Myelopathy; Myofascial Pain; Degeneration of Lumbar Intervertebral Disc; Degeneration of Lumbosacral Intervertebral Disc; Displacement of Lumbar Intervertebral Disc without Myelopathy; Intervertebral Disc Disorder; Spondylosis without Myelopathy Brianna Rangel NP: [id number] [address], [facility] [place] [address], Ph. 12/20/2020 Myofascial Pain; Lumbar Radiculopathy; Lumbosacral Spondylosis without Myelopathy Antonino Douglas MD: [address] [address], [facility] [place] [address], Ph. 09/20/2020 Lumbar Radiculopathy; Lumbosacral Spondylosis without Myelopathy; Myofascial Pain Antonino Douglas MD: [address] [address], [facility] [place] [address], Ph. Social History Tobacco Smoking Status Heavy Tobacco Smoker (3 or more packs per day) Vaccine List None recorded. Plan of Care Reminders Provider Appointments None recorded. Lab None recorded. Referral None recorded. Procedures None recorded. Surgeries None recorded. Imaging None recorded. Vitals 03/01/2021 11:30AM FOLLOW-UP Height Blood Pressure 4 ft 9 in 112/85 mm[Hg] 02/02/2021 08:00AM COVID SPECIMEN COLLECTION Height 4 ft 9 in 01/17/2021 03:45PM FOLLOW-UP Height Blood Pressure 4 ft 9 in 140/97 mm[Hg] 09/20/2020 03:00PM NEW PATIENT Height Weight BMI Blood Pressure 4 ft 9 in 125 lbs 27 kg/m2 145/97 mm[Hg]
--- OUTSIDE RECORDS SUMMARY | 2021-05-03 19:24 | CCD ---
Author Author Ariadna Haywood Organization Unknown Address [address] [address] Phone Care Team Providers Care Towboat Engineer Name Role Phone Ana Haywood PCP Allergies, Adverse Reactions, Alerts Concept Allergy Name Reaction Severity Onset Date Status Documentation Date Phone Number Npid Taxonomy Code Taxonomy Desc Author Last Name Author Gio rst Name Concept Type [id number] nkda Active 03/07/2018 RXNORM Problem List Concept Problem Description Status Start Date Created Date Resolv ed Date Snomed Code F33.3 Major Depressive Disorder, Recurrent epi sode, With psychotic features Active 03/07/2018 03/07/2018 F43.8 Other Specified Trauma- and Stressor-Related Disorder Active 08/31/2017 08/31/2017 Z63.4 Uncomplicated Bereavement Active 05/27/2018 05/27/2018 Medications Rx Norm Medication Route Route Concept Start Date Stop Date Dosage Kentrell quency Duration Formula Strength Dosage Form Dosage Form Code Dosage Description Medication Id Account Npid Author First Name Author Last Name Taxonomy Code Taxonomy Desc Phone Number [phone] Lexapro by mouth [id number] 03/07/2018 05/17/2021 once a day 30 20 m g tablet 18520 [phone] Poonam Smyth [id number] Nurse Johnna stevenser [phone] quetiapine by mouth H55050 04/28/2020 05/17/2021 at bedtime 30 50 mg tablet 49662 [id number] [phone] Poonam Smyth [id number] Nurse Aidan reillytitionmaura [phone] [id number] trazodone by mouth R16835 10/14/2020 05/17/2021 at bedtime 30 150 mg tablet 43566 039736 [id number] Poonam Smyth [id number] Nurse Aidan reillytitionmaura [phone] [id number] buspirone by mouth X44319 02/16/2021 05/17/2021 twice a day 30 10 mg tablet 76600 018695 [phone] Poonam Smyth [id number] Nurse Aidan jin [phone] Social History Social History Element Description Concept Effective Date Smoking Status Unknown if ever smoked [id number] Immunizations No Data in Section Vital Signs No Data in Section Procedures Date Concept Id Description Targeted Site Concept Targeted Site Concept Type 03/07/2021 47120 Extended Individual Psychotherapy - 45 min CPT Patient has no history of implantable de vices Encounters Encounter Start Date End Date Encounter Type Description Diagnosis Di agnosis Desc Location Author First Name Author Last Name Npid Taxonomy Cod e Taxonomy Desc Phone Number Location Addr1 Location Addr2 Location [facility] Location Sta te Location [facility] [id number] 03/07/2021 03/07/2021 88942 Extended Individual Psych otherapy - 45 min F33.3 Major depressv disorder, recurrent, severe w psych sym ptoms [facility] Yobany Ana [phone] [id number] Mental He alth [phone] [address] [phone] Plan of Treatment No Data in Section Lab Results No Data in Section Instructions No Data in Section Insurance Providers Insurance Id Policy Effective Date Policy Thru Date Company Leeann watkins [id number] 2017 [employer] Sabine allred
--- OUTSIDE RECORDS SUMMARY | 2021-05-03 19:24 | CCD ---
Author Author HajaAriadna grantYulia Organization Unknown Address [address] [address] Phone Care Team Providers Care Food Inspector Name Role Phone Poonam Smyth PCP Allergies, Adverse Reactions, Alerts Concept Allergy Name Reaction Severity Onset Date Status Documentation Date Phone Number Npid Taxonomy Code Taxonomy Desc Author Last Name Author Fi rst Name Concept Type 313734 nkda Active 03/07/2018 RXNORM Problem List Concept [...] Name Taxonomy Code Taxonomy Desc Phone Number [phone] Lexapro by mouth [id number] 03/07/2018 05/17/2021 once a day 30 20 m g tablet 71300 [phone] Poonam Smyth [id number] Nurse Johnna ctitioner [phone] quetiapine by mouth N53143 04/28/2020 05/17/2021 at bedtime 30 50 mg tablet 49402 170683 [phone] Poonam Smyth [id number] Nurse Aidan reillytitionmaura [phone] 303220 trazodone by mouth S02455 10/14/2020 05/17/2021 at bedtime 30 150 mg tablet 01243 241745 [id number] Poonam Smyth [id number] Nurse Aidan reillytitioner [phone] 696213 buspirone by mouth F68937 02/16/2021 05/17/2021 twice a day 30 10 mg tablet 99171 803277 [id number] Poonam Smyth [id number] Nurse Aidan jin [phone] Social History Social History Element Description Concept Effective Date Smoking Status Unknown if ever smoked [id number] Immunizations No Data in Section Vital Signs No Data in Section Procedures Date Concept Id Description Targeted Site Concept Targeted Site Concept Type 03/28/2021 99343 E/M Level 3 - Established Patient CPT Patient has no history of implantable de vices Encounters Encounter Start Date End Date Encounter Type Description Diagnosis Di agnosis Desc Location Author First Name Author Last Name Npid Taxonomy Cod e Taxonomy Desc Phone Number Location Addr1 Location Addr2 Location [facility] Location Sta te Location [facility] [id number] 03/28/2021 03/28/2021 81748 E/M Level 3 - Established Pa tient F33.3 Major depressv disorder, recurrent, severe w psych symptoms [facility] Haja Levin [phone] [id number] 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 [phone] [address] [phone] Plan of Treatment No Data in Section Lab Results No Data in Section Instructions No Data in Section Functional Cognitive Status No Data in Section Insurance Providers Insurance Id Policy Effective Date Policy Thru Date [facility] Leeann watkins [id number] 2017 [employer] Sabine allred
--- OUTSIDE RECORDS SUMMARY | 2021-05-03 19:24 | CCD | Continuity of Care Document ---
Author Author Ariadna BOWEN N.P. Organization Unknown Address [address] [place] [address] Phone [phone] Care Team Providers Care Parts Sales Representative Name Role Phone Karen Alcazar M.D. AUTM [phone] Kimi Archer AUTM Kimi Archer AUTM [phone] AUTM Unavailable Problems Active Problems Provider Date Essential hypertension Sina Youssef MD Onset: 017 Allergic asthma without status asthmaticus Sina larios MD Onset: 12/21/2016 Social History Type Date Description Comments Sex Unknown ETOH Use Rarely consumes alcohol Tobacco Use Start: 05/28/76 Patient is a current smoker, smo kes every day 1/2 PPD Recreational Drug Use Denies Drug Use Smoking Status Reviewed: 03/10/21 Patient is a current smoker, smokes every day 1/2 PPD Allergies and adverse reactions Active Allergies Criticality Reaction | Severity Comments Date NKDA Unable to assess criticality 12/07/2020 Tape Unable to assess criticality SKIN RASH 12/21/2016 Medications Active Medications SIG Qnty Indications Ordering Provide r Date Airduo Respiclick 113/14 113-14mcg/Act Aerosol 1 puff twice a day 1units J45.30 Ivy Bowen, N.P. Lisinopril 20mg Tablets 1 tab by mouth every day Unknown Trazodone HCL 150mg Tablets 1 tab by mouth at bedtime Unknown Ventolin HFA 108(90Base) mcg/Act A erosol 2 puffs four times a day as needed Unknown Aspirin 81mg Tablets DR 1 tab by mouth every day Unknown Escitalopram Oxalate 20mg Tablets 1 tab by mouth every day 90tabs Unknown Buspirone HCL 10mg Tablets 1 tab by mouth twice a day Unknown Quetiapine Fumarate 50mg Tablets 1 tab by mouth at bedtime Unknown Immunizations Description No Information Available Vital Signs Date Vital Result Comment 03/10/2021 12:36pm BP Systolic 120 mmHg BP Diastolic 80 mmHg Heart Rate 82 /min O2 % BldC Oximetry 99 % Height 59 inches 4'11" Weight 127.00 lb BMI (Body Mass Index) 25.6 kg/m2 [place] Body Weight 100 lb Weight 57.607 kg BSA (Body Surface Area) 1.52 m2 01/20/2021 1:32pm BP Systolic 186 mmHg 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 Recheck: 1 56/90 BP Diastolic 102 mmHg 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 Recheck: 156/90 Heart Rate 86 /min O2 % BldC Oximetry 98 % Height 59 inches 4'11" Weight 122.50 lb BMI (Body Mass Index) 24.7 kg/m2 [place] Body Weight 100 lb Weight 55.566 kg BSA (Body Surface Area) 1.50 m2 Results Test Acquired Date Facility Test Result H/L Range Note FVL/Kye 12/07/2020 [facility] PDFReport SEE IMAGE FVC-Pred 2.84 L FVC-Pre 2.08 L FVC-%Pred-Pre 73 L FVC-LLN 2.25 L Fev1-Pred 2.23 L Fev1-Pre 1.56 L Fev1-%Pred-Pre 69 L Fev1-LLN 1.73 L Fev6-Pred 2.76 L Fev6-Pre 2.08 L Fev6-%Pred-Pre 75 L Fev6-LLN 2.18 L Xau3vor-Sjlw 79 % Cte7atx-Itc 75 % Dvx5cyt-%Pred-Pre 94 % Hrj4irj-CKL 69 % Lra6mpm-Nwxt 97 % Xqo2nha-Pmw 100 % Leg8mji-%Pred-Pre 103 % FEFMax-Pred 5.80 L/E/sec FEFMax-Pre 3.39 L/E/sec FEFMax-%Pred-Pre 58 L/E/sec FEFMax-LLN 4.34 L/E/sec Hdh6911-Fvpk 2.28 L/E/sec Smn5432-Qts 1.20 L/E/sec Wxi7647-%Pred-Pre 52 L/E/sec Ooo1268-XUT 1.23 L/E/sec ExpTime-Pre 6.25 sec Igr3dlk2-Yttv 82 % Uex9qxc4-Acj 75 % Duo9cad5-%Pred-Pre 91 % Diq0hac5-DRG 73 % Procedures Date Code Description Status 01/20/2021 06562 Tobacco Cessation Counseling Com pleted 01/20/2021 37716 Office/Outpatient Established Mo d MDM 30-39 Min Completed 12/31/2020 22200 Diffusing Capacity Completed 12/31/2020 88890 Plethysmography Determination Unique ng Volumes & Per Airway Resist Completed 12/31/2020 96248 Bronchospasm Evaluation Complete d 12/07/2020 87772 Tobacco Cessation Counseling Com pleted 12/07/2020 79733 Office/Outpatient New Moderate M DM 45-59 Minutes Completed 12/07/2020 97697 Spirometry Completed Medical Devices Description No Information Available Encounters Type Date Location Provider Dx Diagnosis Office Visit 01/20/2021 1:45p [facility] Randolph Bowen, N.P. R05 Cough R06.00 Dyspnea, unspecified R91.8 Other nonspecific abnormal f inding of lung field F17.210 Nicotine dependence, cigaret jane, uncomplicated R94.2 Abnormal results of pulmonar y function studies Z71.2 Person consulting for explan ation of exam or test findings Office Visit 12/07/2020 1:15p [facility] Randolph Bowen, N.P. R06.00 Dyspnea, unspecified R05 Cough R91.8 Other nonspecific abnormal f inding of lung field F17.210 Nicotine dependence, cigaret jane, uncomplicated Assessments Date Code Description Provider 03/10/2021 J45.30 Mild persistent asthma, uncompli cated Ivy Bowen, N.P. 03/10/2021 R94.2 Abnormal results of pulmonary fu nction studies Ivy Bowen, N.P. 03/10/2021 F17.210 Nicotine dependence, cigarettes, uncomplicated Jessi, Ivy, N.P. 03/10/2021 F12.10 Cannabis abuse, uncomplicated Ko Conchita marquezsea, N.P. 03/10/2021 Z71.2 Person consulting fo r explanation of examination or test findings Conchita Bowensea, N.P. 01/20/2021 R05 Cough Jessi, Ivy, N .P. 01/20/2021 R06.00 Dyspnea, unspecified Jessi, Caroline ea, N.P. 01/20/2021 R91.8 Other nonspecific abnormal findi ng of lung field Jessi Ivy, N.P. 01/20/2021 F17.210 Nicotine dependence, cigarettes, uncomplicated Conchita Bowensea, N.P. 01/20/2021 R94.2 Abnormal results of pulmonary fu nction studies Conchita Bowensea, N.P. 01/20/2021 Z71.2 Person consulting fo r explanation of examination or test findings Conchita Bowensea, N.P. 12/31/2020 R05 Cough Pulmonary Lab 12/07/2020 R06.00 Dyspnea, unspecified Jessi, Caroline ea, N.P. 12/07/2020 R05 Cough Jessi, Ivy, N .P. 12/07/2020 R91.8 Other nonspecific abnormal findi ng of lung field Conchita Bowensea, N.P. 12/07/2020 F17.210 Nicotine dependence, cigarettes, uncomplicated Jessi, Ivy, N.P. Plan of Treatment Future Appointment(s):* 04/20/2021 11:00 am - Ivy Bowen, N.P. at [facility] Pulmonary/Th[facility]acic 03/10/2021 - Ivy Bowen, N.P.* J45.30 Mild persistent asthma, uncomplicated * R94.2 Abnormal results of pulmonary function studies * F17.210 Nicotine dependence, cigarettes, uncomplicated * F12.10 Cannabis abuse, uncomplicated * Z71.2 Person consulting for explanation of examination or test findings * * New Medication:* Airduo Respiclick 113-14 mcg/Act * New Labs:* FVL/[place], Ordered: 03/10/21 * Follow up:* 1. Follow up in 4-6 weeks time with fvl/spirometry. Functional Status Description No Information Available Mental Status Description No Information Available Referrals Refer to Dr Reason for Referral Status Appt Date Radiology/Procedure 66514 Closed Ivy Bowen F.N.P. COPD J44.9 [facility] [address] [place] [address] [phone] Ivy Bowen F.N.P. COPD [facility] [address] [place] [id number] [phone] Ivy Bowen F.N.P. COPD, TRAMMELL Cl[facility] [address] [place] [address] [phone]
--- OUTSIDE RECORDS SUMMARY | 2021-05-03 19:24 | CCD | Continuity of Care Document ---
Author Author Ariadna BOWEN N.P. Organization Unknown Address [address] [place] [address] Phone [phone] Care Team Providers Care Windshield Wiper Repairer Name Role Phone Karen Alcazar M.D. AUTM Kimi Archer AUTM [phone] Kimi Archer AUTM [phone] AUTM Unavailable Problems Active Problems Provider [...] lb BMI (Body Mass Index) 25.6 kg/m2 [place] Body Weight 100 lb Weight 57.607 kg BSA (Body Surface Area) 1.52 m2 01/20/2021 1:32pm BP Systolic 186 mmHg CABLEMAN Recheck: 1 56/90 BP Diastolic 102 mmHg CABLEMAN Recheck: 156/90 Heart Rate 86 /min O2 % BldC Oximetry 98 % Height 59 inches 4'11" Weight 122.50 lb BMI (Body Mass Index) 24.7 kg/m2 [place] Body Weight 100 lb Weight 55.566 kg [...] L Fev6-%Pred-Pre 75 L Fev6-LLN 2.18 L Omf1jmd-Sdpm 79 % Ert0swe-Ytd 75 % Fnw2ntd-%Pred-Pre 94 % Kuh9zdm-YON 69 % Zsy7lng-Abvs 97 % Axt5kds-Adb 100 % Ugs7pug-%Pred-Pre 103 % FEFMax-Pred 5.80 L/E/sec FEFMax-Pre 3.39 L/E/sec FEFMax-%Pred-Pre 58 L/E/sec FEFMax-LLN 4.34 L/E/sec Cil2382-Yleh 2.28 L/E/sec Alr0999-Aza 1.20 L/E/sec Gqx9884-%Pred-Pre 52 L/E/sec Dxx2574-QXC 1.23 L/E/sec ExpTime-Pre 6.25 sec Cta8rmj1-Cjft 82 % Xlg5cyz0-Tsh 75 % Bdq1hka0-%Pred-Pre 91 % Dgy4hhs8-THB 73 % Procedures Date Code Description Status 03/10/2021 46592 Tobacco Cessation Counseling Com pleted 03/10/2021 67934 Office/Outpatient Established Mo d MDM 30-39 Min Completed 01/20/2021 38876 Tobacco Cessation Counseling Com pleted 01/20/2021 04594 Office/Outpatient Established Mo d MDM 30-39 Min Completed 12/31/2020 08253 Diffusing Capacity Completed 12/31/2020 19302 Plethysmography Determination Unique ng Volumes & Per Airway Resist Completed 12/31/2020 69787 Bronchospasm Evaluation Complete d 12/07/2020 28800 Tobacco Cessation Counseling Com pleted 12/07/2020 30807 Office/Outpatient New Moderate M DM 45-59 Minutes Completed 12/07/2020 83398 Spirometry Completed Medical Devices Description No Information Available Encounters Type Date Location Provider Dx Diagnosis Office Visit 03/10/2021 12:45p [facility] Randolph Bowen, N.P. J45.30 Mild persistent asthma, uncomplicated R94.2 Abnormal results of pulmonar y function studies F17.210 Nicotine dependence, cigaret jane, uncomplicated F12.10 Cannabis abuse, uncomplicate d Z71.2 Person consulting for explan ation of exam or test findings Office Visit 01/20/2021 1:45p [facility] Randolph Bowen, N.P. R05 Cough R06.00 Dyspnea, unspecified R91.8 Other nonspecific abnormal f inding of lung field F17.210 Nicotine dependence, cigaret jane, uncomplicated R94.2 Abnormal results of pulmonar y function studies Z71.2 Person consulting for explan ation of exam or test findings Office Visit 12/07/2020 1:15p [facility] Jessi, C helsea, N.P. R06.00 Dyspnea, unspecified R05 Cough R91.8 Other nonspecific abnormal f inding of lung field F17.210 Nicotine dependence, cigaret jane, uncomplicated Assessments Date Code Description Provider 03/10/2021 J45.30 Mild persistent asthma, uncompli cated Antony Bowena, N.P. 03/10/2021 R94.2 Abnormal results of pulmonary fu nction studies Jessi Ivy, N.P. 03/10/2021 F17.210 Nicotine dependence, cigarettes, uncomplicated Jessi, Ivy, N.P. 03/10/2021 F12.10 Cannabis abuse, uncomplicated Ko jimmy, Ivy, N.P. 03/10/2021 Z71.2 Person consulting fo r explanation of examination or test findings Conchita Bowensea, N.P. 01/20/2021 R05 Cough Jessi Ivy, N .P. 01/20/2021 R06.00 Dyspnea, unspecified Jessi, Caroline ea, N.P. 01/20/2021 R91.8 Other nonspecific abnormal findi ng of lung field Jessi Ivy, N.P. 01/20/2021 F17.210 Nicotine dependence, cigarettes, uncomplicated Jessi Ivy, N.P. 01/20/2021 R94.2 Abnormal results of pulmonary fu nction studies Jessi, Ivy, N.P. 01/20/2021 Z71.2 Person consulting fo r [...] 11:00 am - Ivy Bowen, N.P. at [facility] 03/10/2021 - Ivy Bowen N.P.* J45.30 Mild persistent asthma, uncomplicated * R94.2 Abnormal results of pulmonary function studies * F17.210 Nicotine dependence, cigarettes, uncomplicated * F12.10 Cannabis abuse, uncomplicated * Z71.2 Person consulting for explanation of examination or test findings * * New Medication:* Airduo Respiclick 113-14 mcg/Act * New Labs:* FVL/[place], Ordered: 03/10/21 * Follow up:* 1. Follow up in 4-6 weeks time with fvl/spirometry. Functional Status Description No Information Available Mental Status Description No Information Available Referrals Refer to Dr Reason for Referral Status Appt Date Radiology/Procedure 08386 Closed Ivy Bowen F.N.P. COPD J44.9 [facility] [address] [place] [address] [phone] Ivy Bowen F.N.P. COPD Cl[facility] [address] [place] [phone] Ivy Bwoen F.N.P. COPD, TRAMMELL Cl[facility] [address] [place] [address] [phone]
--- OUTSIDE RECORDS SUMMARY | 2021-05-03 19:24 | CCD ---
Author Author [facility] Organization [facility] Address Unknown Phone Unavailable Care Team Providers Care Dough Brake Machine Operator Name Role Phone Noa Henry Unavailable PROBLEMS Type Condition ICD9-CM Code IRV76-AK Code Onset Dates Condition S tatus W/U Status Risk SNOMED Code Notes Problem Chronic hepatitis C without hepatic coma B18.2 Active confirmed 986426778 Problem Essential hypertension I10 Active confirmed 74122127 Problem Gastroesophageal reflux disease, esophagitis pre sence not specified K21.9 Active confirmed 040646467 Problem Degenerative disc disease, lumbar M51.36 Active confirmed 33351394 Problem Slow transit constipation K59.01 Active confirmed 90521016 Problem Vitamin D deficiency E55.9 Active confirmed 36262203 Problem Sacroiliitis, not elsewhere classified M46.1 A ctive confirmed 38200523 Problem Pulmonary emphysema, unspecified emphysema type J4 3.9 Active confirmed 02002501 Problem Atrophic vaginitis N95.2 Active confirmed 5 1782205 Problem Psychophysiological insomnia F51.04 Active confirme d 446722066 Problem Tobacco use disorder F17.200 Active confirmed 588993218 Problem Single current episode of [place] depressive disorder, unspecified depression episode severity F32.9 Active confirmed 26 8158015 Problem Other chronic pain G89.29 Active confirmed 8 4861522 Problem Common bile duct dilation K83.8 Active confirmed 931843660 Problem Allergic rhinitis, unspecified seasonality, unspecifie d trigger J30.9 Active confirmed 36262894 Problem Cigarette nicotine dependence without complication F17.210 Active confirmed 61735142 ALLERGIES Allergen (clinical drug ingredient) Drug/Non Drug Allergy do cumented on EMR Reaction Allergy Type Onset Date Status varenicline Chantix([facility] Code:[address]-95) Rash Drug Allergy Active Baclofen ringing in the ears Drug Allergy Act bunny Tape rash Non Drug Allergy Active ENCOUNTERS from 1965 to 2021-03-09 Encounter Location Date Provider Diagnosis [facility] Urology [address] [phone] [place] [address] Feb, Noa Carl Tobacco use disorder F17.200 ; Atrophic vaginitis N95.2 ; Dysuria R30.0 and Vaginal pain R10.2 IMMUNIZATIONS Vaccine Route Administration Date Status Influenza 6mo & up Fluzone IM Intramuscular Apr 23, 2017 Admi nistered SOCIAL HISTORY Tobacco Use: Social History Observation Description Date Details (start date - stop date) Current Smoker Sex Assigned At : Social History Observation Description Sex Assigned At Unknown Education: Question Answer Notes Level of Education: High School Language: Question Answer Notes Languages spoken: Both Khmer and Montenegrin Uatsdin: Question Answer Notes Uatsdin 14 L[employer] No episcopalian beliefs that would impact health care. Sexual [...] in quitting? Thinking about quitting Carrillo salgado nicoderm patches Counseled the patient on smoking cessation, education provid ed 06/12/2018 REASON FOR REFERRAL No Information VITAL SIGNS Weight 120 lbs Feb, Weight-kg 54.43 kg Feb, Height 60.5 in Feb, BMI 23.05 kg/m2 Feb, Heart Rate 95 /min Feb, Respiratory Rate 20 /min Feb, Temperature 96.1 degrees Fahrenheit Feb, Oximetry 97% Feb, Blood pressure systolic 132 mm Hg Feb, Blood pressure diastolic 78 mm Hg Feb, MEDICATIONS Medication SIG (Take, Route, Frequency, Duration) [...] MG 1 tablet Orally Once a day 05 2017 Active Flagyl 500 MG 1 tablet [...] day(s) Oct, Active PROCEDURES No Information RESULTS Component Value Reference Range Basic Metabolic Profile (BMP) Reviewed date:03/08/2021 13:51:57 Interpretation: Performing Lab:[facility], [facility] [address] [address] , [place] [address] GLUCOSE, FASTING 147 70-100 BLOOD UREA NITROGEN 22 7-18 CREATININE FOR GFR 1.49 0.55-1.30 GLOMERULAR FILTRATION RATE 38.5 >51 SODIUM LEVEL 141 136-145 POTASSIUM SERUM 3.6 3.5-5.1 CHLORIDE LEVEL 106 98-107 CARBON DIOXIDE LEVEL 30 21-32 CALCIUM LEVEL 8.9 8.5-10.1 REASON FOR VISIT 2 mo f/u MEDICAL (GENERAL) HISTORY Type Description Date Medical [...] Chronic low back pain - Spine and [facility] Medical History Depression Medical History Insomnia Medical History History of vitamin D deficiency Medical History Regadenosen SPECT Nuclear st ress test 06/22/17 at [facility] - normal; Dr. Bear Medical History [...] No Information FUNCTIONAL STATUS No Information ASSESSMENTS Encounter Date Diagnosis Assessment Notes Treatment Notes Treatm ent Clinical Notes Feb, Atrophic vaginitis (ICD-10 - N95.2) Feb, Tobacco use disorder (ICD-10 - F17.200) Plan: -Send a repeat vaginosis panel today and treat any infections accordingly -Start Estrace vaginal cream which was sent on the last visit in October -Order a BMP since she did have 5 hyaline casts on her microscopic urinalysis to look at her kidney function -Follow-up in April and at this point we will repeat a microscopic urinalysis since she is a medium to high risk since she is a smoker This was dictated with Ashley and not proofread for errors Feb, Dysuria (ICD-10 - R30.0) Feb, Vaginal pain (ICD-10 - R10.2) PLAN OF TREATMENT Medication Medication Name Sig Start Date Stop Date Diflucan 150 MG 1 tablet Orally once but can repeat if symptoms not resolved for 1 days Feb, Treatment Notes Assessment Notes Clinical Notes Tobacco use disorder Plan:-Send a repeat vaginosis panel today and treat any infections accordingly-Start Estrace vaginal cream which was sent on the last visit in October-Order a BMP since she did have 5 hyaline casts on her microscopic urinalysis to look at her kidney qrxsccrd-Lhxfop-lr in April and at this point we will repeat a microscopic urinalysis since she is a medium to high risk since she is a smokerThis was dictated with Ashley and not proofread for errors Treatment Notes Test Name Order Date MISCELLANEOUS TEST LAB 2021-03-[address] Henry Dec and will send UA Reason: Provider Name:Noa Henry, 11:00:00 AM, [address], , [place], [address], Insurance Providers Payer Name Payer Address Payer Phone Insured Name Patient Relati onship to Insured Coverage Start Date Coverage End Date [facility] [address] [facility] [address] MARYSE CARNEY self
--- OUTSIDE RECORDS SUMMARY | 2021-05-03 19:24 | CCD ---
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 Name Role Phone [employer] [facility] 124 [phone] [facility] 2 [phone] Allergies Code Code System Name Reaction Severity Status Onset Adhesive Tape Active 12/04/2016 NKDA Medications Name Status Start Date Stop Date acetaminophen 325 mg tablet TAKE ONE TABLET BY MOUTH EVERY 4 HOURS NEEDED FOR PAIN Completed 03/04/2021 albuterol sulfate HFA 90 mcg/actuation a erosol inhaler INHALE ONE PUFF BY MOUTH THREE TO FOUR TIMES DAILY NEEDED Active Not available amlodipine 5 mg tablet TAKE ONE TABLET BY MOUTH EVERY DAY Active Not available aspirin 81 mg tablet Take by oral route. Completed 02/01/2021 aspirin 81 mg tablet,delayed release TAKE ONE TABLET BY MOUTH EVERY DAY Active Not available buspirone Completed 08/04/2020 buspirone 10 mg tablet TAKE ONE TABLET BY MOUTH TWICE A DAY Active No t available buspirone 30 mg tablet TAKE ONE TABLET BY MOUTH TWICE A DAY Completed citalopram Completed 08/04/2020 Constulose 10 gram/15 mL oral solution TAKE 30ML BY MOUTH TWO TIMES A DAY FOR CONSTIPATION Active Not available escitalopram 20 mg tablet TAKE ONE TABLET BY MOUTH EVERY DAY Active Not available fluticasone 113 mcg-salmeterol 14 mcg/ac tuation breath activated powdr INHALE ONE PUFF BY MOUTH EVERY 12 HOURS Completed 02/01/2021 lisinopril 10 mg tablet Take 1 tablet every day by oral route. Completed 08/04/2020 lisinopril 20 mg tablet TAKE ONE TABLET BY MOUTH EVERY DAY Active Not available metronidazole 500 mg tablet TAKE ONE TABLET BY MOUTH THREE TIMES A DAY Completed 02/01/2021 mirtazapine 15 mg tablet TAKE ONE TABLET BY MOUTH AT BEDTIME Completed 02/2021 mirtazapine 30 mg tablet TAKE ONE TABLET BY MOUTH AT BEDTIME Completed 02/2021 mirtazapine 7.5 mg tablet TAKE ONE TABLET BY MOUTH AT BEDTIME Completed 02/2021 naproxen 500 mg tablet TAKE ONE TABLET BY MOUTH TWICE A DAY NEEDED Completed 02/01/2021 nicotine 21 mg/24 hr daily transdermal p atch APPLY ONE PATCH TO THE SKIN EVERY DAY Active N ot available pantoprazole 40 mg tablet,delayed releas e TAKE ONE TABLET BY MOUTH DAILY Completed 08/05/19 phenazopyridine 100 mg tablet TAKE 1 TABLET THREE TIMES A DAY AFTER MEALS NEEDED FOR BURNING Completed 02/01/2021 quetiapine 50 mg tablet TAKE ONE TABLET BY MOUTH AT BEDTIME Completed 12/2020 sucralfate 1 gram tablet TAKE ONE TABLET BY MOUTH FOUR TIMES A DAY ON AN EMPTY STOMACH 1 HOUR BEFORE MEALS AND AT BEDTIME Completed 02/01/2021 tizanidine 4 mg tablet TAKE ONE TABLET BY MOUTH THREE TIMES A DAY NEEDED Completed 03/04/2021 trazodone Completed 08/04/2020 trazodone 100 mg tablet TAKE TWO TABLETS BY MOUTH AT BEDTIME Completed trazodone 150 mg tablet TAKE ONE TABLET BY MOUTH AT BEDTIME Active Not available Trulance 3 mg tablet TAKE ONE TABLET BY MOUTH EVERY DAY FOR IBS WITH CONSTIPATION Completed 08/04/2020 Problems Name Status Onset Date Source Acute Hepatitis C Active 12/04/2016 History Hypertensive Disorder Active 12/04/2016 History Umbilical Hernia Active 12/04/2016 History Idiopathic Osteoarthritis Active 12/04/2016 Histor y Pain in Thoracic Spine Active 12/04/2016 History Tobacco Use and Exposure - Finding Active 12/04/2016 History Exposure to Second Hand Tobacco Smoke Active 12/04/2016 History Procedure by Method Active 12/04/2016 History Emotional State Finding Active 12/04/2016 History Finding Related to Sleep Active 12/04/[address] Concept Active 12/04/2016 History Evaluation Procedure Active 12/04/2016 History Syphilis Test Finding Active 12/04/2016 History Clinical Finding Active 12/04/2016 History Finding of Esophagus Active 12/04/2016 History Vitamin D Deficiency Active 01/01/2017 History Low Back Pain Active 01/01/2017 History Dyspnea Active 01/01/2017 History Chest Pain Active 01/01/2017 History Evaluation Finding Active 01/01/2017 History Malocclusion, Angle Class I Active 01/02/2017 Hist ory Dental Caries on Smooth Surface Penetrating into Pulp Active 01/02/2017 History Chronic Obstructive Lung Disease Active 01/08/2017 History Depressive Disorder Active 01/23/2017 History Inguinal Hernia Active 04/18/2017 History Breast Neoplasm Screening Status Active 04/18/2017 History Right Upper Quadrant Pain Active 08/02/2018 Histor y Screening Mammography Active 11/22/2018 History Clinical Finding Active 02/17/2019 History Irritable Bowel Syndrome Characterized by Constipation Active 06/27/2019 History Acute Pancreatitis Active 06/27/2019 History Periumbilical Pain Active 06/27/2019 History Pain of Right Shoulder Joint Active 11/17/2019 His tory Asthma Active 11/17/2019 History Hyperlipidemia Active 11/27/2019 History Gastritis Active 12/15/2019 History Patient Asked to Attend Active 12/15/2019 History Procedures Date Name Performed by Hysterectomy Information not avai lable Hernia Repair Information not avai lable 10/19/2020 XR, Chest, 2 View Information not avai lable Notes: hernia repair, hysterectomy, tota l, rt shoulder repair Results Lab Results Date Name Specimen Result Interpretation Description Value Range Status Address 09/10/2020 CBC W/ Auto Diff Blood venous Normal White Blood C ount 5.3 10 4.0-10.0 10 [facility]: [address] [facility] Blood venous Low Red Blood Count 3.97 10 4.00- 5.40 10 [facility]: [address] [facility] Blood venous Normal Hemoglobin 12.8 g/dL 12.0-15. 5 g/dL [facility]: [address] [facility] Blood venous Normal Hematocrit 38.6 % 36.0-47.0 % [facility]: [address] [facility] Blood venous High Mean Corpuscular Volume 97.2 fL 80.0-96.0 fL [facility]: [address] [facility] Blood venous Normal Mean Corpuscular Hemoglob in 32.2 pg 27.0-33.0 pg [facility]: [address] [facility] Blood venous Normal Mean Corpuscular HGB Conc 33.2 g/dL 32.0-36.5 g/dL [facility]: [address] [place] [address] Blood venous Normal Red Cell Distribution Wid th 12.7 % 11.5-14.5 % [facility]: [address] [place] [address] Blood venous Normal Platelet Count, Automated 273 10 150-450 10 [facility]: [address] [place] [address] Blood venous High Neutrophils % 67.0 % 36.0-66. 0 % [facility]: [address] [place] [address] Blood venous Low Lymph % 20.9 % 24.0-44.0 % [facility]: [address] [place] [address] Blood venous High Snyder % 9.4 % 2.0-8.0 % [facility]: [address] [place] [address] Blood venous Normal Eos % 1.3 % 0.0-3.0 % [facility]: [address] [place] [address] venous Normal Baso % 0.8 % 0.0-1.0 % [facility]: [address] [place] [address] Blood venous Normal Immature Granulocyte % 0.6 % 0-3.0 % [facility]: [address] [place] [address] Blood venous Normal Nucleated Red Blood Cell % 0. 0 % 0-0 % [facility]: [address] [place] [address] Blood venous Normal Neutrophils # 3.6 10 1.5-8.5 10 [facility]: [address] [place] [address] Blood venous Low Lymph # 1.1 10 1.5-5.0 10 [facility]: [address] [place] [address] Blood venous Normal Snyder # 0.5 10 0.0-0.8 10 [facility]: [address] [place] [address] Blood venous Normal Eos # 0.1 10 0.0-0.5 10 [facility]: [address] [place] [address] Blood venous Normal Baso # 0.0 10 0.0-0.2 10 [facility]: [address] [place] [address] 09/10/2020 UA W/ Reflex to Culture Normal Appearance, Urine Rfx clear clear [facility]: [address] [facility] Normal Color, Urine Rfx straw yellow [facility]: [address] [facility] Normal pH,urine Rfx 7.0 units 5.0-9.0 units [facility]: [address] [facility] Normal Specific Mittie Ur Auto Rfx 1.005 1.002-1.035 [facility]: [address] [facility] Normal Protein, Urine Auto Rfx negative mg/ dL negative mg/dL [facility]: [address] [facility] Normal Glucose, Urine (UA) Auto Rfx n egative mg/dL negative mg/dL [facility]: [address] [facility] Normal Ketone, Urine Auto Rfx negative mg/d L negative mg/dL [facility]: [address] [facility] Normal Urobilinogen, Urine Auto Rfx 0.2 mg/ dL 0.0-2.0 mg/dL [facility]: [address] [facility] Normal Bilirubin, Urine Auto Rfx negative n egative [facility]: [address] [facility] Normal Nitrite, Urine Auto Rfx negative neg ative [facility]: [address] [facility] Normal Leukocyte Esterase Ur Auto Rfx negat bunny negative [facility]: [address] [facility] High Blood, Urine Blood Rfx 1+ negati ve [facility]: [address] [facility] Normal WBC, Urine Auto Rfx 1 /hpf 0-3 /hpf [facility]: [address] [facility] Normal RBC, Urine Auto Rfx 1 /hpf 0-3 /hpf [facility]: [address] [facility] Normal Bacteria, Urine Auto Rfx negative ne gative [facility]: [address] [facility] Normal Squam Epithelial Cell Ur Aurfx 1 /hp f 0-6 /hpf [facility]: [address] [facility] Normal Hyaline Cast, Urine Auto Rfx 0 /lpf 0-1 /lpf [facility]: [address] [place] [address] 09/10/2020 PT/INR Normal Prothrombin Time 12.8 secon ds 12.5-14.3 seconds [facility]: [address] [place] [address] Normal Inr 0.95 [facility]: [address] [place] [address] 09/10/2020 Lactic Acid, Serum or Plasma Normal Lactic Acid Sepsis Protocol 0.8 mmol/L 0.4-2.0 mmol/L [facility]: [address] [place] [address] 09/10/2020 Cardiovascular Assessment Panel, Serum High CPK Creatine Phosphokinase 690 U/L 26-192 U/L [facility]: [address] [place] [address] High CK-mb Value Mass 10.5 NG/mL <3.6 NG/ mL [facility]: [address] [place] [address] Normal mb/CK Relative Index 1.52 < or =4 [facility]: [address] [place] [address] Normal Troponin I 0.02 NG/mL < 0.10 NG/mL F inal [facility]: [address] [place] [address] 09/10/2020 Hepatic Function Panel, Serum Normal AST/SG OT 35 U/L 7-37 U/L [facility]: [address] [place] [address] Normal ALT/SGPT 29 U/L 12-78 U/L [facility]: [address] [place] [address] Normal Alkaline Phosphatase 94 U/L 45-117 U /L [facility]: [address] [place] [address] Normal Bilirubin,total 0.7 mg/dL 0.2-1.0 mg /dL [facility]: [address] [place] [address] Normal Bilirubin,direct 0.2 mg/dL 0.0-0.2 m g/dL [facility]: [address] [place] [address] Normal Total Protein 7.8 gm/dL 6.4-8.2 gm/d L [facility]: [address] [place] [address] Normal Albumin 4.4 gm/dL 3.2-5.2 gm/dL Tamika l [facility]: [address] [facility] Normal Albumin/globulin Ratio 1.3 1.2-2. 2 [facility]: [address] [facility] 09/10/2020 BMP, Serum or Plasma Normal Glucose, Fastin g 90 mg/dL 70-100 mg/dL [facility]: [address] [facility] Normal Blood Urea Nitrogen 15 mg/dL 7-18 mg /dL [facility]: [address] [place] [address] Normal Creatinine for GFR 0.94 mg/dL 0.55-1 .30 mg/dL [facility]: [address] [place] [address] Normal Glomerular Filtration Rate > 60.0 >5 1 [facility]: [address] [place] [address] Low Sodium Level 135 mEq/L 136-145 mEq/L [facility]: [address] [place] [address] Normal Potassium Serum 3.6 mEq/L 3.5-5.1 mE q/L [facility]: [address] [facility] Normal Chloride Level 100 mEq/L 98-107 mEq/ L [facility]: [address] [facility] Normal Carbon Dioxide Level 31 mEq/L 21-32 mEq/L [facility]: [address] [place] [address] Low Anion Gap 4 mEq/L 8-16 mEq/L [facility]: [address] [facility] Normal Calcium Level 9.8 mg/dL 8.5-10.1 mg/ dL [facility]: [address] [facility] 09/10/2020 T4, Total, Serum Normal Thyroxine (T4) 9.2 ug/dL 4.5-12.0 ug/dL [facility]: [address] [facility] 09/10/2020 TSH, Serum or Plasma High Thyroid Stimulating Hormone 6.590 uIU/mL 0.358-3.740 uIU/mL [facility]: [address] [facility] 09/10/2020 Respiratory Virus Panel [id number] No observ ation recorded. [facility]: [address] [place], [place] [address] 09/10/2020 Culture, Blood BLOOD No observation recorded. [facility]: [address] [facility] 09/10/2020 Culture, Blood BLOOD No observation recorded. [facility]: [address] [facility] 08/04/2020 CBC W/ Auto Diff Blood venous Normal White Blood C ount 4.0 10 4.0-10.0 10 [facility]: [address] [facility] Blood venous Low Red Blood Count 3.73 10 4.00- 5.40 10 [facility]: [address] [facility] Blood venous Normal Hemoglobin 12.2 g/dL 12.0-15. 5 g/dL [facility]: [address] [place] [address] Blood venous Normal Hematocrit 37.4 % 36.0-47.0 % [facility]: [address] [place] [address] Blood venous High Mean Corpuscular Volume 100.3 fL 80.0-96.0 fL [facility]: [address] [place] [address] Blood venous Normal Mean Corpuscular Hemoglob in 32.7 pg 27.0-33.0 pg [facility]: [address] [facility] Blood venous Normal Mean Corpuscular HGB Conc 32.6 g/dL 32.0-36.5 g/dL [facility]: [address] [facility] Blood venous Normal Red Cell Distribution Wid th 12.4 % 11.5-14.5 % [facility]: [address] [facility] Blood venous Normal Platelet Count, Automated 225 10 150-450 10 [facility]: [address] [facility] Blood venous Normal Neutrophils % 64.3 % 36.0-66. 0 % [facility]: [address] [facility] Blood venous Normal Lymph % 24.8 % 24.0-44.0 % [facility]: [address] [facility] Blood venous High Snyder % 8.2 % 2.0-8.0 % [facility]: [address] [place] [address] Blood venous Normal Eos % 1.5 % 0.0-3.0 % [facility]: [address] [place] [address] Blood venous Normal Baso % 0.5 % 0.0-1.0 % [facility]: [address] [place] [address] Blood venous Normal Immature Granulocyte % 0.7 % 0-3.0 % [facility]: [address] [place] [address] Blood venous Normal Nucleated Red Blood Cell % 0. 0 % 0-0 % [facility]: [address] [place] [address] Blood venous Normal Neutrophils # 2.6 10 1.5-8.5 10 [facility]: [address] [place] [address] Blood venous Low Lymph # 1.0 10 1.5-5.0 10 [facility]: [address] [place] [address] Blood venous Normal Snyder # 0.3 10 0.0-0.8 10 [facility]: [address] [place] [address] Blood venous Normal Eos # 0.1 10 0.0-0.5 10 [facility]: [address] [place] [address] Blood venous Normal Baso # 0.0 10 0.0-0.2 10 [facility]: [address] [place] [address] 08/04/2020 CMP, Serum or Plasma Blood venous High Glu cose, Fasting 103 mg/dL 70-100 mg/dL [facility]: [address] [place] [address] Blood venous High Blood Urea Nitrogen 22 mg/dL 7-18 mg/dL [facility]: [address] [place] [address] Blood venous Normal Creatinine for GFR 0.97 mg/dL 0.55-1.30 mg/dL [facility]: [address] [place] [address] Blood venous Normal Glomerular Filtration Rate > 60.0 >51 [facility]: [address] [place] [address] Blood venous Normal Sodium Level 141 mEq/L 136-14 5 mEq/L [facility]: [address] [place] [address] Blood venous Normal Potassium Serum 4.5 mEq/L 3.5 -5.1 mEq/L [facility]: [address] [facility] Blood venous High Chloride Level 109 mEq/L 98-1 07 mEq/L [facility]: [address] [facility] Blood venous Normal Carbon Dioxide Level 29 mEq/L 21-32 mEq/L [facility]: [address] [facility] Blood venous Low Anion Gap 3 mEq/L 8-16 mEq/L [facility]: [address] [facility] Blood venous Normal Calcium Level 8.7 mg/dL 8.5-1 0.1 mg/dL [facility]: [address] [facility] Blood venous Normal AST/SGOT 11 U/L 7-37 U/L [facility]: [address] [facility] Blood venous Normal ALT/SGPT 21 U/L 12-78 U/L [facility]: [address] [facility] Blood venous Normal Alkaline Phosphatase 65 U/L 4 5-117 U/L [facility]: [address] [facility] Blood venous Normal Bilirubin,total 0.2 mg/dL 0.2 -1.0 mg/dL [facility]: [address] [facility] Blood venous Normal Total Protein 6.4 gm/dL 6.4-8 .2 gm/dL [facility]: [address] [place] [address] Blood venous Normal Albumin 3.8 gm/dL 3.2-5.2 gm/ dL [facility]: [address] [facility] Blood venous Normal Albumin/globulin Ratio 1.5 1.2-2.2 [facility]: [address] [facility] 08/04/2020 Lipid Panel, Blood Blood venous Normal Trigl ycerides Level 116 mg/dL <150 mg/dL [facility]: [address] [facility] Blood venous High Cholesterol Level 221 mg/dL < 200 mg/dL [facility]: [address] [facility] Blood venous Normal HDL Cholesterol 81 mg/dL >40 mg/dL [facility]: [address] [facility] Blood venous High LDL Cholesterol 117 mg/dL <10 0 mg/dL [facility]: [address] [facility] Blood venous Normal Non-hdl-c 140 mg/dL [facility]: [address] [facility] Blood venous Normal Cholesterol Risk Ratio 2.728 <5 [facility]: [address] [facility] 08/04/2020 Magnesium, Serum or Plasma Normal Magnesium Level 1.8 mg/dL 1.8-2.4 mg/dL [facility]: [address] [facility] 08/04/2020 Vitamin D, 25-Hydroxy, Total, Serum Blood venous Low Total 25(Oh) Vitamin D 21.1 NG/mL 30.0-100.0 NG/mL [facility]: [address] [place] [address] 03/18/2020 CBC W/ Auto Diff Normal White Blood Count 4.3 10 4.0-10.0 10 [facility]: [address] [place] [address] Normal Red Blood Count 4.22 10 4.00-5.40 10 [facility]: [address] [facility] Normal Hemoglobin 13.3 g/dL 12.0-15.5 g/dL [facility]: [address] [place] [address] Normal Hematocrit 40.8 % 36.0-47.0 % [facility]: [address] [place] [address] High Mean Corpuscular Volume 96.7 fL 80.0 -96.0 fL [facility]: [address] [place] [address] Normal Mean Corpuscular Hemoglobin 31.5 pg 27.0-33.0 pg [facility]: [address] [place] [address] Normal Mean Corpuscular HGB Conc 32.6 g/dL 32.0-36.5 g/dL [facility]: [address] [place] [address] Normal Red Cell Distribution Width 12.4 % 1 1.5-14.5 % [facility]: [address] [place] [address] Normal Platelet Count, Automated 252 10 150 -450 10 [facility]: [address] [place] [address] Normal Neutrophils % 64.1 % 36.0-66.0 % [facility]: [address] [facility] Normal Lymph % 25.8 % 24.0-44.0 % [facility]: [address] [facility] High Snyder % 6.8 % 0.0-5.0 % [facility]: [address] [facility] Normal Eos % 1.9 % 0.0-3.0 % [facility]: [address] [facility] Normal Baso % 0.9 % 0.0-1.0 % [facility]: [address] [facility] Normal Immature Granulocyte % 0.5 % 0-3.0 % [facility]: [address] [facility] Normal Nucleated Red Blood Cell % 0.0 % 0- 0 % [facility]: [address] [facility] Normal Neutrophils # 2.7 10 1.5-8.5 10 [facility]: [address] [facility] Low Lymph # 1.1 10 1.5-5.0 10 [facility]: [address] [facility] Normal Snyder # 0.3 10 0.0-0.8 10 [facility]: [address] [facility] Normal Eos # 0.1 10 0.0-0.5 10 [facility]: [address] [facility] Normal Baso # 0.0 10 0.0-0.2 10 [facility]: [address] [facility] 03/18/2020 CMP, Serum or Plasma Normal Glucose, Fastin g 82 mg/dL 70-100 mg/dL [facility]: [address] [facility] High Blood Urea Nitrogen 21 mg/dL 7-18 mg /dL [facility]: [address] [facility] Normal Creatinine for GFR 1.02 mg/dL 0.55-1 .30 mg/dL [facility]: [address] [facility] Normal Glomerular Filtration Rate 59.9 >5 1 [facility]: [address] [facility] Normal Sodium Level 140 mEq/L 136-145 mEq/L [facility]: [address] [facility] High Potassium Serum 5.4 mEq/L 3.5-5.1 mE q/L [facility]: [address] [facility] High Chloride Level 108 mEq/L 98-107 mEq/ L [facility]: [address] [facility] Normal Carbon Dioxide Level 29 mEq/L 21-32 mEq/L [facility]: [address] [facility] Low Anion Gap 3 mEq/L 8-16 mEq/L [facility]: [address] [facility] Normal Calcium Level 8.8 mg/dL 8.5-10.1 mg/ dL [facility]: [address] [facility] Normal AST/SGOT 20 U/L 7-37 U/L [facility]: [address] [facility] Normal ALT/SGPT 22 U/L 12-78 U/L [facility]: [address] [facility] Normal Alkaline Phosphatase 78 U/L 45-117 U /L [facility]: [address] [facility] Normal Bilirubin,total 0.3 mg/dL 0.2-1.0 mg /dL [facility]: [address] [facility] Normal Total Protein 6.8 gm/dL 6.4-8.2 gm/d L [facility]: [address] [facility] Normal Albumin 3.7 gm/dL 3.2-5.2 gm/dL Tamika l [facility]: [address] [facility] Normal Albumin/globulin Ratio 1.2 1.2-2. 2 [facility]: [address] [facility] 03/18/2020 Lipid Panel, Blood High Triglycerides Lev el 153 mg/dL <150 mg/dL [facility]: [address] [facility] Normal Cholesterol Level 193 mg/dL <200 mg/ dL [facility]: [address] [facility] Normal HDL Cholesterol 91 mg/dL >40 mg/dL [facility]: [address] [facility] Normal LDL Cholesterol 71 mg/dL <100 mg/dL Final [facility]: [address] [facility] Normal Non-hdl-c 102 mg/dL Final [facility]: [address] [facility] Normal Cholesterol Risk Ratio 2.120 <5 [facility]: [address] [place] [address] 03/18/2020 TSH + Free T4, Serum Normal Thyroid Stimulating Hormone 2.710 uIU/mL 0.358-3.740 uIU/mL [facility]: [address] [place] [address] Normal Free T4 0.90 NG/dL 0.76-1.46 NG/dL [facility]: [address] [facility] 03/18/2020 Vitamin D, 25-Hydroxy, Total, Serum Low Total 25(Oh) Vitamin D 25.2 NG/mL 30.0-100.0 NG/mL [facility]: [address] [facility] 03/18/2020 HbA1C (Hemoglobin a1C), Blood Normal Hemogl obin a1C 4.9 % [facility]: [address] [place] [address] Normal Estimated Average Glucose 94 mg/dL 6 0-110 mg/dL [facility]: [address] [facility] Past Encounters 03/09/2021 MATT Rae: [address] [place] [phone], Ph. 03/04/2021 Patient New to Provider; Hypertensive Disorder; Neck Pain; Administration of Influenza Vaccine; Nicotine Dependence MATT Rae: [address] [place] [address], Ph. 03/01/2021 DEANDRE RaoBC: [address] [place] [phone], Ph. 02/01/2021 Hypertensive Disorder; Intermittent Palpitations; Mixed Anxiety and Depressive Disorder; Nicotine Dependence with Current Use [facility]: [address] [place] [phone], Ph. 10/19/2020 Asthma; Chronic Low Back Pain; Chronic Obstructive Lung Disease; Microscopic Hematuria; Patient Asked to Attend [facility]: [address] [place] [phone], Ph. 08/04/2020 Low Back Pain; Essential Hypertension [facility]: [address] [place] [phone], Ph. 03/22/2020 Requires Influenza Virus Vaccination; Hypertensive Disorder; Low Back Pain [facility]: [address] [place] [phone], Ph. 03/18/2020 Influenza Vaccine Needed [facility]: [address] [place] [phone], Ph. Social History Tobacco Smoking Status Heavy Tobacco Smoker (1 pack per a da y) Vaccine List Vaccine Type influenza, injectable, quadrivalent, pre servative free 03/22/20200.5 mL 03/25/20200.5 mL 03/04/2021 Tdap 12/06/2015 Plan of Care Patient Instructions We have made a referral for you today, W e will contact you to set this up. Please continue to monitor report and avoid triggers causing increased anxiety and or depression. Please let us know if you need additional assistance. Lab results reviewed and discussed with you today. Please continue medications as prescribed. Please try to maintain good nutrition, adequate rest and adequate physical activities and adequate intake of water daily. Please continue medications as prescribe d. Please try to maintain good nutrition, adequate rest, adequate physical activities and adequate intake of water daily. Reminders Provider Appointments None recorded. Lab None recorded. Referral None recorded. Procedures None recorded. Surgeries None recorded. Imaging None recorded. Vitals 03/09/2021 09:50AM NURSE LAB COLLECTION Height 60 in 03/04/2021 11:00AM ESTABLISHED [id number] Height Weight BMI Blood Pressure 60 in 122 lbs 4 oz 23.9 kg/m2 123/88 mm[Hg] 02/01/2021 02:40PM ESTABLISHED [id number] Height Weight BMI Blood Pressure 60 in 122 lbs 8 oz 23.9 kg/m2 137/95 mm[Hg] 10/19/2020 05:40PM TELEHEALTH 20 Height 60 in 08/04/2020 01:40PM ESTABLISHED [id number] Height Weight BMI Blood Pressure 60 in 133 lbs 8 oz 26.1 kg/m2 134/99 mm[Hg] 03/22/2020 01:20PM ESTABLISHED [id number] Height Weight BMI Blood Pressure 60 in 132 lbs 4 oz 25.8 kg/m2 131/89 mm[Hg] 03/18/2020 01:00PM NURSE LAB COLLECTION Height 60 in 12/15/2019 Height Weight BMI Blood Pressure 60 in 132 lbs 6.4 oz 25.95 kg/m2 144/95 mm[Hg ] 11/17/2019 Height Weight BMI Blood Pressure 60 in 131 lbs 12.8 oz 25.83 kg/m2 142/105 mm[ Hg] 06/27/2019 Height Weight BMI Blood Pressure 67 in 125 lbs 8 oz 19.73 kg/m2 119/80 mm[Hg] 11/22/2018 Height Weight BMI Blood Pressure 67 in 128 lbs 8 oz 20.20 kg/m2 148/95 mm[Hg] 10/04/2018 Height Weight BMI Blood Pressure 67 in 136 lbs 2.08 oz 21.40 kg/m2 154/113 mm[ Hg] 08/02/2018 Height Weight BMI Blood Pressure 67 in 132 lbs 8 oz 20.83 kg/m2 114/75 mm[Hg]
--- OUTSIDE RECORDS SUMMARY | 2021-05-03 19:24 | CCD ---
Author Organization Unknown Address [address] [place] [address] Phone [phone] Care Team Providers Care Adhesion Tester Name Role Phone JASWINDER DEWEY MD 3 [phone] Allergies Code Code System Name Reaction Severity Status Onset [id number] RxNorm Latex Rash Mild to Moderate Active [...] lable 09/20/2020 MRI, Lumbar Spine, W/o Contrast [facility] Radiology Dept [address] [place] [phone] (Work Place) 11/15/2020 MRI, Lumbar Spine, W/o Contrast [facility] Radiology Dept [address] [place] [phone] (Work Place) Results Lab Results Date Name Specimen Result Interpretation Description Value Range Status Address 02/07/2021 [facility] Pdf Report NOS No observation recorded. [facility] Cov[facility]: [address] [facility] [place] 02/07/2021 SARS CoV 2 RNA (COVID-19), QL, certified nursing assistant instructor-PCR, Respirat ory Specimen NOS Normal Sars-cov-2 negative negative Final [facility]: [address] [facility] [place] 02/02/2021 SARS CoV 2 RNA (COVID-19), QL, certified nursing assistant instructor-PCR, Respiratory Sp ecimen Other No observation recorded. [facility]: [address] [facility] [place] 01/21/2021 [facility] Pdf Report NOS No observation recorded. [facility]: [address] [facility] [place] 01/21/2021 SARS CoV 2 RNA (COVID-19), QL, certified nursing assistant instructor-PCR, Respirat ory Specimen NOS Normal Sars-cov-2 negative negative Final [facility]: [address] [facility] [address], [place] Past Encounters 03/15/2021 Myofascial Pain; Lumbar Radiculopathy; Lumbosacral Spondylosis without Myelopathy; Degeneration of Lumbar Intervertebral Disc; Degeneration of Lumbosacral Intervertebral Disc; Displacement of Lumbar Intervertebral Disc without Myelopathy; Intervertebral Disc Disorder; Spondylosis without Myelopathy Antonino Douglas MD: [id number] [facility], [facility] [place] [address], Ph. 03/01/2021 Lumbar Radiculopathy; Lumbosacral Spondylosis without Myelopathy; Myofascial Pain; Degeneration of Lumbar Intervertebral Disc; Degeneration of Lumbosacral Intervertebral Disc; Displacement of Lumbar Intervertebral Disc without Myelopathy; Intervertebral Disc Disorder; Spondylosis without Myelopathy Brianna Rangel NP: [address] [address], [facility] [place] [address], Ph. 02/10/2021 Lumbar Radiculopathy; Degeneration of Lumbar Intervertebral Disc; Degeneration of Lumbosacral Intervertebral Disc; Displacement of Lumbar Intervertebral Disc without Myelopathy; Intervertebral Disc Disorder; Spondylosis without Myelopathy; Lumbosacral Spondylosis without Myelopathy; Myofascial Pain Antonino Douglas MD: [address] [address], [facility] [place] [address], Ph. 02/07/2021 Pre-surgery Testing; Viral Screening Antonino Douglas MD: [address] [facility], [facility] [place] [address], Ph. [phone] 02/02/2021 Pre-surgery Testing; Viral Screening Antonino Douglas MD: [address] [address], [place] [address], Ph. [phone] 01/21/2021 Pre-surgery Testing; Viral Screening Antonino Douglas MD: [address] [facility], [facility] [place] [address], Ph. [phone] 01/17/2021 Lumbar Radiculopathy; Lumbosacral Spondylosis without Myelopathy; Myofascial Pain; Degeneration of Lumbar Intervertebral Disc; Degeneration of Lumbosacral Intervertebral Disc; Displacement of Lumbar Intervertebral Disc without Myelopathy; Intervertebral Disc Disorder; Spondylosis without Myelopathy Brianna Rangel NP: [address] [address], [place] [address], Ph. 12/20/2020 Myofascial Pain; Lumbar Radiculopathy; Lumbosacral Spondylosis without Myelopathy Antonino Douglas MD: [address] [facility], [facility] [place] [address], Ph. 09/20/2020 Lumbar Radiculopathy; Lumbosacral Spondylosis without Myelopathy; Myofascial Pain Antonino Douglas MD: [address] [address], [place] [address], Ph. Social History Tobacco Smoking Status Heavy Tobacco Smoker (3 or more packs per a day) Vaccine List None recorded. Plan of [...]
--- OUTSIDE RECORDS SUMMARY | 2021-05-03 19:24 | CCD | Continuity of Care Document ---
Author Author Ariadna BOWEN N.P. Organization Unknown Address [address] [place] [address] Phone [phone] Care Team Providers Care Bakery Supervisor Name Role Phone Karen Alcazar M.D. AUTM [phone] Kimi Archer AUTM Kimi Archer AUTM [phone] AUTM Unavailable Problems Active Problems Provider [...] lb BMI (Body Mass Index) 25.6 kg/m2 [place] Body Weight 100 lb Weight 57.607 kg BSA (Body Surface Area) 1.52 m2 01/20/2021 1:32pm BP Systolic 186 mmHg ABSORPTION PLANT OPERATOR HELPER Recheck: 1 56/90 BP Diastolic 102 mmHg ABSORPTION PLANT OPERATOR HELPER Recheck: 156/90 Heart Rate 86 /min O2 % BldC Oximetry 98 % Height 59 inches 4'11" Weight 122.50 lb BMI (Body Mass Index) 24.7 kg/m2 [place] Body Weight 100 lb Weight 55.566 kg [...] L Fev6-%Pred-Pre 75 L Fev6-LLN 2.18 L Xru6oed-Otpe 79 % Wvs3pyb-Bvv 75 % Voj9rjl-%Pred-Pre 94 % Cej0msj-YBH 69 % Uux8ehd-Kmxf 97 % Jyr3fqd-Jvk 100 % Byl4lro-%Pred-Pre 103 % FEFMax-Pred 5.80 L/E/sec FEFMax-Pre 3.39 L/E/sec FEFMax-%Pred-Pre 58 L/E/sec FEFMax-LLN 4.34 L/E/sec Csq6815-Pknm 2.28 L/E/sec Ojm8330-Ssa 1.20 L/E/sec Gqu7622-%Pred-Pre 52 L/E/sec Jif6411-IVR 1.23 L/E/sec ExpTime-Pre 6.25 sec Lld5jvt0-Qcbm 82 % Eng9zmu6-Nze 75 % Zln0wfh6-%Pred-Pre 91 % Bwi9lsh6-VLX 73 % Procedures Date Code Description Status 01/20/2021 68601 Tobacco Cessation Counseling Com pleted 01/20/2021 53320 Office/Outpatient Established Mo d MDM 30-39 Min Completed 12/31/2020 23072 Diffusing Capacity Completed 12/31/2020 08130 Plethysmography Determination Unique ng Volumes & Per Airway Resist Completed 12/31/2020 35775 Bronchospasm Evaluation Complete d 12/07/2020 74193 Tobacco Cessation Counseling Com pleted 12/07/2020 77611 Office/Outpatient New Moderate M DM 45-59 Minutes Completed 12/07/2020 82543 Spirometry Completed Medical Devices Description No Information [...] 11:00 am - Ivy Bowen, N.P. at [facility] Pulmonary/Thoracic 03/10/2021 - Ivy Bowen, N.P.* J45.30 Mild persistent asthma, uncomplicated * R94.2 Abnormal results of pulmonary function studies * F17.210 Nicotine dependence, cigarettes, uncomplicated * F12.10 Cannabis abuse, uncomplicated * Z71.2 Person consulting for explanation of examination or test findings * * New Medication:* Airduo Respiclick 113-14 mcg/Act * New Labs:* FVL/[place], Ordered: 03/10/21 * Follow up:* 1. Follow up in 4-6 weeks time with fvl/spirometry. Functional Status Description No Information Available Mental Status Description No Information Available Referrals Refer to Dr Reason for Referral Status Appt Date Radiology/Procedure 95778 Closed Ivy Bowen F.N.P. COPD J44.9 [facility] [address] [place] [address] [phone] Ivy Bowen F.N.P. COPD Closed 12/08/2020 [facility] [address] [place] [address] [phone] Ivy Bowen F.N.P. COPD, TRAMMELL Closed 11/16/2020 [facility] [address] [place] [address] [phone]
--- OUTSIDE RECORDS SUMMARY | 2021-05-03 19:24 | CCD | Continuity of Care Document ---
Author Author Ariadna BOWEN N.P. Organization Unknown Address [address] [place] [address] Phone [phone] Care Team Providers Care Fruit Cutter Name Role Phone Karen Alcazar M.D. AUTM Kimi Archer AUTM Kimi Archer AUTM [phone] AUTM Unavailable Problems Active Problems Provider [...] lb BMI (Body Mass Index) 25.6 kg/m2 [place] Body Weight 100 lb Weight 57.607 kg BSA (Body Surface Area) 1.52 m2 01/20/2021 1:32pm BP Systolic 186 mmHg WOOD TANK ERECTOR Recheck: 1 56/90 BP Diastolic 102 mmHg WOOD TANK ERECTOR Recheck: 156/90 Heart Rate 86 /min O2 % BldC Oximetry 98 % Height 59 inches 4'11" Weight 122.50 lb BMI (Body Mass Index) 24.7 kg/m2 [place] Body Weight 100 lb Weight 55.566 kg [...] L Fev6-%Pred-Pre 75 L Fev6-LLN 2.18 L Yec8sna-Ozyv 79 % Tpi5eki-Bze 75 % Vvl7prf-%Pred-Pre 94 % Kzq5gox-ABO 69 % Rnj5nrz-Qlrw 97 % Xhr8bue-Ish 100 % Rfn0ipk-%Pred-Pre 103 % FEFMax-Pred 5.80 L/E/sec FEFMax-Pre 3.39 L/E/sec FEFMax-%Pred-Pre 58 L/E/sec FEFMax-LLN 4.34 L/E/sec Prn1679-Oyra 2.28 L/E/sec Xcs0721-Itg 1.20 L/E/sec Nxd3364-%Pred-Pre 52 L/E/sec Yhq0276-VAW 1.23 L/E/sec ExpTime-Pre 6.25 sec Wub1miv7-Mrbs 82 % Tox8leo2-Ifr 75 % Aqk6avg1-%Pred-Pre 91 % Fbc9wkg9-HGE 73 % Procedures Date Code Description Status 01/20/2021 97391 Tobacco Cessation Counseling Com pleted 01/20/2021 82099 Office/Outpatient Established Mo d MDM 30-39 Min Completed 12/31/2020 55722 Diffusing Capacity Completed 12/31/2020 48078 Plethysmography Determination Unique ng Volumes & Per Airway Resist Completed 12/31/2020 54544 Bronchospasm Evaluation Complete d 12/07/2020 96141 Tobacco Cessation Counseling Com pleted 12/07/2020 97784 Office/Outpatient New Moderate M DM 45-59 Minutes Completed 12/07/2020 45364 Spirometry Completed Medical Devices Description No Information [...] 11:00 am - Ivy Bowen, N.P. at [facility] Pulmonary/Thoracic 03/10/2021 - Ivy Bowen, N.P.* J45.30 Mild persistent asthma, uncomplicated * R94.2 Abnormal results of pulmonary function studies * F17.210 Nicotine dependence, cigarettes, uncomplicated * F12.10 Cannabis abuse, uncomplicated * Z71.2 Person consulting for explanation of examination or test findings * * New Medication:* Airduo Respiclick 113-14 mcg/Act * New Labs:* FVL/[place], Ordered: 03/10/21 * Follow up:* 1. Follow up in 4-6 weeks time with fvl/spirometry. Functional Status Description No Information Available Mental Status Description No Information Available Referrals Refer to Dr Reason for Referral Status Appt Date Radiology/Procedure 98150 Closed Ivy Bowen F.N.P. COPD J44.9 [facility] [address] [place] [address] [phone] Ivy Bowen F.N.P. COPD [facility] [address] [place] [address] [phone] Ivy Bowen F.N.P. COPD, TRAMMELL Cl[facility] [address] [place] [address] [phone]
--- OUTSIDE RECORDS SUMMARY | 2021-05-03 19:24 | CCD ---
Author Author Ariadna Ureña Organization Unknown Address [address] [address] Phone Care Team Providers Care Circle Edger Name Role Phone Ana Ureña PCP Allergies, Adverse Reactions, Alerts Concept Allergy Name Reaction Severity Onset Date Status Documentation Date Phone Number Npid Taxonomy Code Taxonomy Desc Author Last Name Author Fi rst Name Concept Type 646484 nkda Active 03/07/2018 RXNORM Problem List Concept [...] Name Taxonomy Code Taxonomy Desc Phone Number [phone] Lexapro by mouth [id number] 03/07/2018 05/17/2021 once a day 30 20 m g tablet 55538 234740 [phone] Poonam Smyth [id number] Nurse Johnna ctitioner [phone] [id number] quetiapine by mouth Y86167 04/28/2020 05/17/2021 at bedtime 30 50 mg tablet 15004 970319 [phone] Poonam Smyth [id number] Nurse Aidan reillytitioner [phone] 826481 trazodone by mouth N12278 10/14/2020 05/17/2021 at bedtime 30 150 mg tablet 43635 [id number] [phone] Poonam Smyth [id number] Nurse Aidan reillytitioner [phone] 543436 buspirone by mouth C64975 02/16/2021 05/17/2021 twice a day 30 10 mg tablet 35322 571628 [phone] Poonam Smyth [id number] Nurse Aidan jin [phone] Social History Social History Element Description Concept Effective Date Smoking Status Unknown if ever smoked [id number] Immunizations No Data in Section Vital Signs No Data in Section Procedures Date Concept Id Description Targeted Site Concept Targeted Site Concept Type 03/23/2021 15451 Extended Individual Psychotherapy - 45 min CPT Patient has no history of implantable de vices Encounters Encounter Start Date End Date Encounter Type Description Diagnosis Di agnosis Desc Location Author First Name Author Last Name Npid Taxonomy Cod e Taxonomy Desc Phone Number Location Addr1 Location Addr2 Location [facility] Location Sta te Location [facility] [id number] 03/23/2021 03/23/2021 65615 Extended Individual Psych otherapy - 45 min F33.3 Major depressv disorder, recurrent, severe w psych sym ptoms [facility] Niranjan Perez [phone] [id number] [facility] [phone] [address] [phone] Plan of Treatment No Data in Section Lab Results No Data in Section Instructions No Data in Section Insurance Providers Insurance Id Policy Effective Date Policy Thru Date Definition 6 N june [id number] 2017 [employer] Managed Sabine allred
--- OUTSIDE RECORDS SUMMARY | 2021-05-03 19:24 | CCD | Continuity of Care Document ---
Author Author Ariadna BOWEN N.P. Organization Unknown Address [address] [place] [address] Phone [phone] Care Team Providers Care Fruit Dryer Name Role Phone Karen Alcazar M.D. AUTM [phone] Kimi Archer AUTM Kimi Archer AUTM AUTM Unavailable Problems Active Problems Provider Date [...] lb BMI (Body Mass Index) 25.6 kg/m2 [place] Body Weight 100 lb Weight 57.607 kg BSA (Body Surface Area) 1.52 m2 01/20/2021 1:32pm BP Systolic 186 mmHg PRACTICE COORDINATOR Recheck: 1 56/90 BP Diastolic 102 mmHg PRACTICE COORDINATOR Recheck: 156/90 Heart Rate 86 /min O2 % BldC Oximetry 98 % Height 59 inches 4'11" Weight 122.50 lb BMI (Body Mass Index) 24.7 kg/m2 [place] Body Weight 100 lb Weight 55.566 kg [...] L Fev6-%Pred-Pre 75 L Fev6-LLN 2.18 L Oyz6yya-Cohx 79 % Erk6psz-Qtf 75 % Soj1kpy-%Pred-Pre 94 % Hml8ybs-LAX 69 % Xoh9ysh-Ohjo 97 % Xug6jmi-Ffy 100 % Sdo8rhm-%Pred-Pre 103 % FEFMax-Pred 5.80 L/E/sec FEFMax-Pre 3.39 L/E/sec FEFMax-%Pred-Pre 58 L/E/sec FEFMax-LLN 4.34 L/E/sec Niq0584-Osab 2.28 L/E/sec Pes4544-Tyc 1.20 L/E/sec Cen9635-%Pred-Pre 52 L/E/sec Hix1507-AYY 1.23 L/E/sec ExpTime-Pre 6.25 sec Sct8sle7-Bvfq 82 % Xdi5nkn6-Gbx 75 % Umi2tmm9-%Pred-Pre 91 % Zjr8yph2-ZWY 73 % Procedures Date Code Description Status 01/20/2021 36661 Tobacco Cessation Counseling Com pleted 01/20/2021 98583 Office/Outpatient Established Mo d MDM 30-39 Min Completed 12/31/2020 50572 Diffusing Capacity Completed 12/31/2020 06413 Plethysmography Determination Unique ng Volumes & Per Airway Resist Completed 12/31/2020 79888 Bronchospasm Evaluation Complete d 12/07/2020 24629 Tobacco Cessation Counseling Com pleted 12/07/2020 49576 Office/Outpatient New Moderate M DM 45-59 Minutes Completed 12/07/2020 65116 Spirometry Completed Medical Devices Description No Information [...] - Ivy Bowen, N.P. at [facility] Pulmonary/Thoracic 03/10/2021 - Ivy Bowen, N.P.* J45.30 Mild persistent asthma, uncomplicated * R94.2 Abnormal results of pulmonary function studies * F17.210 Nicotine dependence, cigarettes, uncomplicated * F12.10 Cannabis abuse, uncomplicated * Z71.2 Person consulting for explanation of examination or test findings * * New Medication:* Airduo Respiclick 113-14 mcg/Act * New Labs:* FVL/[place], Ordered: 03/10/21 * Follow up:* 1. Follow up in 4-6 weeks time with fvl/spirometry. Functional Status Description No Information Available Mental Status Description No Information Available Referrals Refer to Dr Reason for Referral Status Appt Date Radiology/Procedure 96154 Closed Ivy Bowen F.N.P. COPD J44.9 [facility] [address] [place] [address] [phone] Ivy Bowen F.N.P. COPD Cl[facility]/08[facility] [address] [place] [address] [phone] Ivy Bowen F.N.P. COPD, TRAMMELL Closed [facility]/16[facility]2020 [facility] [address] [place] [address] [phone]
--- OUTSIDE RECORDS SUMMARY | 2021-05-03 19:24 | CCD ---
Author Author [facility] Organization [facility] Address Unknown Phone Unavailable Care Team Providers Care Plater Apprentice Name Role Phone Noa Henry Unavailable PROBLEMS Type Condition ICD9-CM Code UDL55-NH Code Onset Dates Condition S tatus W/U Status Risk SNOMED Code Notes Problem Chronic hepatitis C without hepatic coma B18.2 Active confirmed 449152900 Problem Essential hypertension I10 Active confirmed 68126298 Problem Gastroesophageal reflux disease, esophagitis pre sence not specified K21.9 Active confirmed 178285003 Problem Degenerative disc disease, lumbar M51.36 Active confirmed 93162134 Problem Slow transit constipation K59.01 Active confirmed 03568625 Problem Vitamin D deficiency E55.9 Active confirmed 47423849 Problem Sacroiliitis, not elsewhere classified M46.1 A ctive confirmed 46065503 Problem Pulmonary emphysema, unspecified emphysema type J4 3.9 Active confirmed 33292254 Problem Atrophic vaginitis N95.2 Active confirmed 5 7997007 Problem Psychophysiological insomnia F51.04 Active confirme d 641691840 Problem Tobacco use disorder F17.200 Active confirmed 098708342 Problem Single current episode of [place] depressive disorder, unspecified depression episode severity F32.9 Active confirmed 26 5345737 Problem Other chronic pain G89.29 Active confirmed 8 2907799 Problem Common bile duct dilation K83.8 Active confirmed 296689882 Problem Allergic rhinitis, unspecified seasonality, unspecifie d trigger J30.9 Active confirmed 03388652 Problem Cigarette nicotine dependence without complication F17.210 Active confirmed 24677046 ALLERGIES Allergen (clinical drug ingredient) Drug/Non Drug Allergy do cumented on EMR Reaction Allergy Type Onset Date Status varenicline Chantix([facility] Code:[address]-05) Rash Drug Allergy Active Baclofen ringing in the ears Drug Allergy Act bunny Tape rash Non Drug Allergy Active ENCOUNTERS from 1965 to 2021-03-08 Encounter Location Date Provider Diagnosis [facility] [address] [phone] [place] [address] Feb, Noa Henry Elevated serum creatinine R79.89 IMMUNIZATIONS Vaccine Route Administration Date Status Influenza 6mo & up Fluzone IM Intramuscular Apr 23, 2017 Admi nistered SOCIAL HISTORY Tobacco Use: Social History Observation Description Date Details (start date - stop date) Current Smoker Sex Assigned At : Social History Observation Description Sex Assigned At Unknown Education: Question Answer Notes Level of Education: High School Language: Question Answer Notes Languages spoken: Both [place] and Estonian Yarsani: Question Answer Notes Yarsani 14 Yazdanism No sabianist beliefs that would impact health care. Sexual [...] you interested in quitting? Thinking about quitting Usin naomi nicoderm patches Counseled the patient on smoking [...] Information RESULTS No Results REASON FOR VISIT Elevated Creatinine MEDICAL (GENERAL) HISTORY Type Description Date Medical [...] SPECT Nuclear st ress test 06/22/17 at [facility] - normal; Dr. Bear Medical [...] Treatment Notes Treatm ent Clinical Notes Feb, Elevated serum creatinine (ICD-10 - R79.89) PLAN OF TREATMENT Medication Medication Name Sig Start Date Stop Date Diflucan 150 MG 1 tablet Orally once but can repeat if symptoms not resolved for 1 days Feb, Treatment Notes Test Name Order Date [facility] 2021-03-08 Next Appt Details Provider Name:Noa Suazo Carl, 11:00:00 AM, [address], , [place], [address], Insurance Providers Payer Name Payer Address Payer Phone Insured Name Patient Relati onship to Insured Coverage Start Date Coverage End Date [facility] [address] [facility] [phone] MARYSE CARNEY self
--- OUTSIDE RECORDS SUMMARY | 2021-05-03 19:24 | CCD | Continuity of Care Document ---
Author Author Ariadna BOWEN N.P. Organization Unknown Address [address] [place] [address] Phone [phone] Care Team Providers Care Aquatics Coordinator Name Role Phone Karen Alcazar M.D. AUTM [phone] Kimi Archer AUTM Kimi Archer AUTM [phone] AUTM Unavailable Problems Active Problems Provider [...] lb BMI (Body Mass Index) 25.6 kg/m2 [place] Body Weight 100 lb Weight 57.607 kg BSA (Body Surface Area) 1.52 m2 01/20/2021 1:32pm BP Systolic 186 mmHg SECURITY RISK ANALYST Recheck: 1 56/90 BP Diastolic 102 mmHg SECURITY RISK ANALYST Recheck: 156/90 Heart Rate 86 /min O2 % BldC Oximetry 98 % Height 59 inches 4'11" Weight 122.50 lb BMI (Body Mass Index) 24.7 kg/m2 [place] Body Weight 100 lb Weight 55.566 kg [...] L Fev6-%Pred-Pre 75 L Fev6-LLN 2.18 L Qqu3csf-Tskn 79 % Rzo6zmb-Vfv 75 % Upc8mkb-%Pred-Pre 94 % Omo4hni-ZNZ 69 % Kuw1uss-Fbgh 97 % Joj6rjg-Slw 100 % Ikx6dfl-%Pred-Pre 103 % FEFMax-Pred 5.80 L/E/sec FEFMax-Pre 3.39 L/E/sec FEFMax-%Pred-Pre 58 L/E/sec FEFMax-LLN 4.34 L/E/sec Gig8491-Poif 2.28 L/E/sec Fwv5966-Vaw 1.20 L/E/sec Cih7114-%Pred-Pre 52 L/E/sec Zbh7838-APS 1.23 L/E/sec ExpTime-Pre 6.25 sec Kyp5cko7-Nelz 82 % Biu1eps3-Xzd 75 % Ivb1nzo7-%Pred-Pre 91 % Gxj4sdn4-FFB 73 % Procedures Date Code Description Status 01/20/2021 99397 Tobacco Cessation Counseling Com pleted 01/20/2021 81728 Office/Outpatient Established Mo d MDM 30-39 Min Completed 12/31/2020 59768 Diffusing Capacity Completed 12/31/2020 31617 Plethysmography Determination Unique ng Volumes & Per Airway Resist Completed 12/31/2020 22046 Bronchospasm Evaluation Complete d 12/07/2020 51637 Tobacco Cessation Counseling Com pleted 12/07/2020 60053 Office/Outpatient New Moderate M DM 45-59 Minutes Completed 12/07/2020 74579 Spirometry Completed Medical Devices Description No Information [...] 03/10/2021 J45.30 Mild persistent asthma, uncompli cated vIy Bowen, N.P. 03/10/2021 R94.2 Abnormal results of [...] 11:00 am - Ivy Bowen, N.P. at [facility] Pulmonary/Thoracic 03/10/2021 - Ivy Bowen, N.P.* J45.30 Mild persistent asthma, uncomplicated * R94.2 Abnormal results of pulmonary function studies * F17.210 Nicotine dependence, cigarettes, uncomplicated * F12.10 Cannabis abuse, uncomplicated * Z71.2 Person consulting for explanation of examination or test findings * * New Medication:* Airduo Respiclick 113-14 mcg/Act * New Labs:* FVL/[place], Ordered: 03/10/21 * Follow up:* 1. Follow up in 4-6 weeks time with fvl/spirometry. Functional Status Description No Information Available Mental Status Description No Information Available Referrals Refer to Dr Reason for Referral Status Appt Date Radiology/Procedure 44761 Closed Ivy Bowen F.N.P. COPD J44.9 [facility] [address] [place] [address] [phone] Ivy Bowen F.N.P. COPD [facility] [address] [place] [id number] [phone] Ivy Bowen F.N.P. COPD, TRAMMELL [facility] [address] [place] [address] [phone]
--- OUTSIDE RECORDS SUMMARY | 2021-05-03 19:24 | CCD | Continuity of Care Document ---
Author Author Ariadna BOWEN N.P. Organization Unknown Address [address] [place] [address] Phone [phone] Care Team Providers Care Heat Sealing Machine Operator Name Role Phone Karen Alcazar M.D. AUTM Kimi Archer AUTM [phone] Kimi Archer AUTM [phone] AUTM Unavailable Problems Active Problems Provider [...] lb BMI (Body Mass Index) 25.6 kg/m2 [place] Body Weight 100 lb Weight 57.607 kg BSA (Body Surface Area) 1.52 m2 01/20/2021 1:32pm BP Systolic 186 mmHg CASH MANAGEMENT CLERK Recheck: 1 56/90 BP Diastolic 102 mmHg CASH MANAGEMENT CLERK Recheck: 156/90 Heart Rate 86 /min O2 % BldC Oximetry 98 % Height 59 inches 4'11" Weight 122.50 lb BMI (Body Mass Index) 24.7 kg/m2 [place] Body Weight 100 lb Weight 55.566 kg [...] L Fev6-%Pred-Pre 75 L Fev6-LLN 2.18 L Dis2uft-Gaeu 79 % Psd2szx-Naz 75 % Sss0ojg-%Pred-Pre 94 % Yhd5qrt-AIV 69 % Lda3rfv-Muna 97 % Pzf1oef-Ihg 100 % Hnj1owm-%Pred-Pre 103 % FEFMax-Pred 5.80 L/E/sec FEFMax-Pre 3.39 L/E/sec FEFMax-%Pred-Pre 58 L/E/sec FEFMax-LLN 4.34 L/E/sec Trg4861-Cydq 2.28 L/E/sec Yqn2576-Hli 1.20 L/E/sec Cqa3984-%Pred-Pre 52 L/E/sec Msc6328-ENR 1.23 L/E/sec ExpTime-Pre 6.25 sec Suc0tvj2-Nawo 82 % Nbt0bmr9-Sxj 75 % Hln4ekf2-%Pred-Pre 91 % Nzh6kqt7-XYV 73 % Procedures Date Code Description Status 01/20/2021 15030 Tobacco Cessation Counseling Com pleted 01/20/2021 95862 Office/Outpatient Established Mo d MDM 30-39 Min Completed 12/31/2020 77495 Diffusing Capacity Completed 12/31/2020 07158 Plethysmography Determination Unique ng Volumes & Per Airway Resist Completed 12/31/2020 45996 Bronchospasm Evaluation Complete d 12/07/2020 65396 Tobacco Cessation Counseling Com pleted 12/07/2020 46683 Office/Outpatient New Moderate M DM 45-59 Minutes Completed 12/07/2020 52958 Spirometry Completed Medical Devices Description No Information [...] 11:00 am - Ivy Bowen, N.P. at [facility] Pulmonary/Thoracic 03/10/2021 - Ivy Bowen, N.P.* J45.30 Mild persistent asthma, uncomplicated * R94.2 Abnormal results of pulmonary function studies * F17.210 Nicotine dependence, cigarettes, uncomplicated * F12.10 Cannabis abuse, uncomplicated * Z71.2 Person consulting for explanation of examination or test findings * * New Medication:* Airduo Respiclick 113-14 mcg/Act * New Labs:* FVL/[place], Ordered: 03/10/21 * Follow up:* 1. Follow up in 4-6 weeks time with fvl/spirometry. Functional Status Description No Information Available Mental Status Description No Information Available Referrals Refer to Dr Reason for Referral Status Appt Date Radiology/Procedure 56568 Closed Ivy Bowen F.N.P. COPD J44.9 [facility] [address] [place] [address] [phone] Ivy Bowen F.N.P. COPD [facility] [address] [place] [id number] [phone] Ivy Bowen F.N.P. COPD, TRAMMELL [facility] [address] [place] [address] [phone]
--- OUTSIDE RECORDS SUMMARY | 2021-05-03 19:24 | CCD ---
Author Author [facility] Organization [facility] Address Unknown Phone Unavailable Care Team Providers Care Calender Runner Name Role Phone Noa Henry Unavailable PROBLEMS Type Condition ICD9-CM Code VVR60-BA Code Onset Dates Condition S tatus W/U Status Risk SNOMED Code Notes Problem Chronic hepatitis C without hepatic coma B18.2 Active confirmed 821277844 Problem Essential hypertension I10 Active confirmed 88110971 Problem Gastroesophageal reflux disease, esophagitis pre sence not specified K21.9 Active confirmed 993422301 Problem Degenerative disc disease, lumbar M51.36 Active confirmed 01533850 Problem Slow transit constipation K59.01 Active confirmed 52442617 Problem Vitamin D deficiency E55.9 Active confirmed 82481843 Problem Sacroiliitis, not elsewhere classified M46.1 A ctive confirmed 24234031 Problem Pulmonary emphysema, unspecified emphysema type J4 3.9 Active confirmed 60397874 Problem Atrophic vaginitis N95.2 Active confirmed 5 5173968 Problem Psychophysiological insomnia F51.04 Active confirme d 323297248 Problem Tobacco use disorder F17.200 Active confirmed 876778239 Problem Single current episode of [place] depressive disorder, unspecified depression episode severity F32.9 Active confirmed 26 3855554 Problem Other chronic pain G89.29 Active confirmed 8 7746705 Problem Common bile duct dilation K83.8 Active confirmed 271900065 Problem Allergic rhinitis, unspecified seasonality, unspecifie d trigger J30.9 Active confirmed 91610166 Problem Cigarette nicotine dependence without complication F17.210 Active confirmed 51614244 ALLERGIES Allergen (clinical drug ingredient) Drug/Non Drug Allergy do cumented on EMR Reaction Allergy Type Onset Date Status varenicline Chantix([facility] Code:[address]-93) Rash Drug Allergy Active Baclofen ringing in the ears Drug Allergy Act bunny Tape rash Non Drug Allergy Active ENCOUNTERS from 1965 to 2021-03-10 Encounter Location Date Provider Diagnosis [facility] [address] [phone] [place] [address] Feb, Noa Henry IMMUNIZATIONS Vaccine Route Administration Date Status Influenza 6mo & up Fluzone IM Intramuscular Apr 23, 2017 Admi nistered SOCIAL HISTORY Tobacco Use: Social History Observation Description Date Details (start date - stop date) Current Smoker Sex Assigned At : Social History Observation Description Sex Assigned At Unknown Education: Question Answer Notes Level of Education: High School Language: Question Answer Notes Languages spoken: Both Chinese and Pashto Catholic: Question Answer Notes Catholic 14 [employer] No lutheran beliefs that would impact health care. Sexual [...] Information RESULTS No Results REASON FOR VISIT +Dottie MEDICAL (GENERAL) HISTORY Type Description Date Medical [...] Chronic low back pain - [facility] Medical History Depression Medical History Insomnia Medical History History of vitamin D deficiency Medical History Regadenosen SPECT Nuclear st ress test 06/22/17 at [facility] - normal; Dr. Bear Medical History [...] days Feb, Next Appt Details Provider Name:Noa Henry, 11:00:00 AM, [address], , [place], [address], Insurance Providers Payer Name Payer Address Payer Phone Insured Name Patient Relati onship to Insured Coverage Start Date Coverage End Date [facility] [employer] [address] [facility] [id number] MARYSE CARNEY self
--- OUTSIDE RECORDS SUMMARY | 2021-05-03 19:25 | CCD ---
Author Organization Unknown Address [address] [place] [address] Phone [phone] Care Team Providers Care Public Health Teacher Name Role Phone Kimi Archer Unavailable Unavailable Allergies Code Code System Name Reaction Severity Status Onset Adhesive Tape Active 12/04/2016 NKDA Medications Name Status Start Date Stop Date acetaminophen 325 mg tablet TAKE ONE TABLET BY MOUTH EVERY 4 HOURS NEEDED FOR PAIN Active Not available albuterol sulfate HFA 90 mcg/actuation a erosol inhaler INHALE ONE PUFF BY MOUTH THREE TO FOUR TIMES DAILY NEEDED Active Not available amlodipine 5 mg tablet Take 1 tablet every day by oral route. Active Not available aspirin 81 mg tablet [...] atch APPLY ONE PATCH TO THE SKIN DAILY Completed 02/01 pantoprazole 40 mg tablet,delayed releas e TAKE [...] A DAY NEEDED Active Not available trazodone Completed 08/04/2020 trazodone 100 mg tablet TAKE TWO TABLETS BY MOUTH AT BEDTIME Completed trazodone 150 mg tablet TAKE ONE TABLET BY MOUTH EVERY DAY AT BEDTIME Active Not available Trulance 3 [...] 01/01/2017 History Chest Pain Active 01/01/2017 History Clinical Finding Active 01/01/2017 History Malocclusion, Angle Class [...] Blood C ount 5.3 10 4.0-10.0 10 [facility]: 83 0 [facility] Blood venous Low Red Blood Count 3.97 10 4.00- 5.40 10 [facility]: 830 [facility] Blood venous Normal Hemoglobin 12.8 g/dL 12.0-15. 5 g/dL [facility]: 830 [facility] Blood venous Normal Hematocrit 38.6 % 36.0-47.0 % [facility]: 830 [facility] Blood venous High Mean Corpuscular Volume 97.2 fL 80.0-96.0 fL [facility]: 830 [facility] Blood venous Normal Mean Corpuscular Hemoglob in 32.2 pg 27.0-33.0 pg Final [facility]: 830 [facility] Blood venous Normal Mean Corpuscular HGB Conc 33.2 g/dL 32.0-36.5 g/dL [facility]: 830 [facility] Blood venous Normal Red Cell Distribution Wid th 12.7 % 11.5-14.5 % Final [facility]: 830 [facility] Blood venous Normal Platelet Count, Automated 273 10 150-450 10 [facility]: 0 [facility] Blood venous High Neutrophils % 67.0 % 36.0-66. 0 % [facility]: [address] [place] [address] Blood venous Low Lymph % 20.9 % 24.0-44.0 % [facility]: [address] [place] [address] Blood venous High [place] % 9.4 % 2.0-8.0 % [facility]: [address] [place] [address] Blood venous Normal Eos % 1.3 % 0.0-3.0 % [facility]: [address] [place] [address] Blood venous Normal Baso % 0.8 % 0.0-1.0 % [facility]: [address] [place] [address] Blood venous Normal Immature Granulocyte % 0.6 % 0-3.0 % [facility]: [address] [place] [address] Blood venous Normal Nucleated Red Blood Cell % 0. 0 % 0-0 % [facility]: [address] [place] [address] Blood venous Normal Neutrophils # 3.6 10 1.5-8.5 10 [facility]: [address] [place] [address] Blood venous Low Lymph # 1.1 10 1.5-5.0 10 [facility]: 830 [facility] Blood venous Normal [place] # 0.5 10 0.0-0.8 10 [facility]: 0 [facility] Blood venous Normal Eos # 0.1 10 0.0-0.5 10 [facility]: [address] [place] [address] Blood venous Normal Baso # 0.0 10 0.0-0.2 10 [facility]: [address] [place] [address] 09/10/2020 UA W/ Reflex to Culture Normal Appearance, Urine Rfx clear clear [facility]: 83 0 [facility] Normal Color, Urine Rfx straw yellow [facility]: 830 [facility] Normal pH,urine Rfx 7.0 units 5.0-9.0 units [facility]: 830 [facility] Normal Specific Penn Ur Auto Rfx 1.005 1.002-1.035 [facility]: 830 [facility] Normal Protein, Urine Auto Rfx negative mg/ dL negative mg/dL [facility]: 830 [facility] Normal Glucose, Urine (UA) Auto Rfx n egative mg/dL negative mg/dL [facility]: 830 [facility] Normal Ketone, Urine Auto Rfx negative mg/d L negative mg/dL [facility]: 830 [facility] Normal Urobilinogen, Urine Auto Rfx 0.2 mg/ dL 0.0-2.0 mg/dL [facility]: 830 [facility] Normal Bilirubin, Urine Auto Rfx negative n egative [facility]: 830 [facility] Normal Nitrite, Urine Auto Rfx negative neg ative [facility]: 830 [facility] Normal Leukocyte Esterase Ur Auto Rfx negat bunny negative [facility]: 830 [facility] High Blood, Urine Blood Rfx 1+ negati ve [facility]: 830 [facility] Normal WBC, Urine Auto Rfx 1 /hpf 0-3 /hpf [facility]: 830 [facility] Normal RBC, Urine Auto Rfx 1 /hpf 0-3 /hpf [facility]: 830 [facility] Normal Bacteria, Urine Auto Rfx negative ne gative [facility]: 830 [facility] Normal Squam Epithelial Cell Ur Aurfx 1 /hp f 0-6 /hpf [facility]: 830 [facility] Normal Hyaline Cast, Urine Auto Rfx 0 /lpf 0-1 /lpf [facility]: 830 [facility] 09/10/2020 PT/INR Normal Prothrombin Time 12.8 secon ds 12.5-14.3 seconds [facility]: [address] [place] [address] Normal Inr 0.95 [facility]: [address] [place] [address] 09/10/2020 Lactic Acid, Serum or Plasma Normal Lactic Acid Sepsis Protocol 0.8 mmol/L 0.4-2.0 mmol/L [facility]: [address] [place] [address] 09/10/2020 Cardiovascular Assessment Panel, Serum High CPK Creatine Phosphokinase 690 U/L 26-192 U/L [facility]: [address] [place] [address] High CK-mb Value Mass 10.5 NG/mL <3.6 NG/ mL [facility]: [address] [place] [address] Normal mb/CK Relative Index 1.52 < or =4 [facility]: [address] [place] [address] Normal Troponin I 0.02 NG/mL < 0.10 NG/mL F inal [facility]: [address] [place] [address] 09/10/2020 Hepatic Function Panel, Serum Normal AST/SG OT 35 U/L 7-37 U/L [facility]: [address] [place] [address] Normal ALT/SGPT 29 U/L 12-78 U/L [facility]: [address] [place] [address] Normal Alkaline Phosphatase 94 U/L 45-117 U /L [facility]: [address] [place] [address] Normal Bilirubin,total 0.7 mg/dL 0.2-1.0 mg /dL [facility]: [address] [place] [address] Normal Bilirubin,direct 0.2 mg/dL 0.0-0.2 m g/dL [facility]: [address] [place] [address] Normal Total Protein 7.8 gm/dL 6.4-8.2 gm/d L [facility]: [address] [place] [address] Normal Albumin 4.4 gm/dL 3.2-5.2 gm/dL Tamika l [facility]: [address] [place] [address] Normal Albumin/globulin Ratio 1.3 1.2-2. 2 [facility]: 830 [facility] 09/10/2020 BMP, Serum or Plasma Normal Glucose, Fastin g 90 mg/dL 70-100 mg/dL [facility]: 83 0 [facility] Normal Blood Urea Nitrogen 15 mg/dL 7-18 mg /dL [facility]: [address] [place] [address] Normal Creatinine for GFR 0.94 mg/dL 0.55-1 .30 mg/dL [facility]: [address] [place] [address] Normal Glomerular Filtration Rate > 60.0 >5 1 [facility]: [address] [place] [address] Low Sodium Level 135 mEq/L 136-145 mEq/L [facility]: [address] [place] [address] Normal Potassium Serum 3.6 mEq/L 3.5-5.1 mE q/L [facility]: [address] [place] [address] Normal Chloride Level 100 mEq/L 98-107 mEq/ L [facility]: 0 [facility] Normal Carbon Dioxide Level 31 mEq/L 21-32 mEq/L [facility]: [address] [place] [address] Low Anion Gap 4 mEq/L 8-16 mEq/L [facility]: [address] [place] [address] Normal Calcium Level 9.8 mg/dL 8.5-10.1 mg/ dL [facility]: 0 [facility] 09/10/2020 T4, Total, Serum Normal Thyroxine (T4) 9.2 ug/dL 4.5-12.0 ug/dL [facility]: 83 0 [facility] 09/10/2020 TSH, Serum or Plasma High Thyroid Stimulating Hormone 6.590 uIU/mL 0.358-3.740 uIU/mL [facility] nter: 0 [facility] 09/10/2020 Respiratory Virus Panel [id number] No observ ation recorded. [facility]: [address] [place] [address] 09/10/2020 Culture, Blood BLOOD No observation recorded. [facility]: [address] [place] [address] 09/10/2020 Culture, Blood BLOOD No observation recorded. [facility]: [address] [place] [address] 08/04/2020 CBC W/ Auto Diff Blood venous Normal White Blood C ount 4.0 10 4.0-10.0 10 [facility]: 83 0 [facility] Blood venous Low Red Blood Count 3.73 10 4.00- 5.40 10 [facility]: 830 [facility] Blood venous Normal Hemoglobin 12.2 g/dL 12.0-15. 5 g/dL [facility]: [address] [place] [address] Blood venous Normal Hematocrit 37.4 % 36.0-47.0 % [facility]: [address] [place] [address] Blood venous High Mean Corpuscular Volume 100.3 fL 80.0-96.0 fL [facility]: [address] [place] [address] Blood venous Normal Mean Corpuscular Hemoglob in 32.7 pg 27.0-33.0 pg [facility]: [address] [place] [address] Blood venous Normal Mean Corpuscular HGB Conc 32.6 g/dL 32.0-36.5 g/dL [facility]: [address] [place] [address] Blood venous Normal Red Cell Distribution Wid th 12.4 % 11.5-14.5 % [facility]: [address] [place] [address] Blood venous Normal Platelet Count, Automated 225 10 150-450 10 [facility]: 0 [facility] Blood venous Normal Neutrophils % 64.3 % 36.0-66. 0 % [facility]: 830 [facility] Blood venous Normal Lymph % 24.8 % 24.0-44.0 % Fi [facility]: 830 [facility] Blood venous High [place] % 8.2 % 2.0-8.0 % [facility]: [address] [place] [address] Blood venous Normal Eos % 1.5 % 0.0-3.0 % [facility]: [address] [place] [address] Blood venous Normal Baso % 0.5 % 0.0-1.0 % [facility]: [address] [place] [address] Blood venous Normal Immature Granulocyte % 0.7 % 0-3.0 % [facility]: [address] [place] [address] Blood venous Normal Nucleated Red Blood Cell % 0. 0 % 0-0 % [facility]: [address] [place] [address] Blood venous Normal Neutrophils # 2.6 10 1.5-8.5 10 [facility]: [address] [place] [address] Blood venous Low Lymph # 1.0 10 1.5-5.0 10 [facility]: [address] [place] [address] Blood venous Normal [place] # 0.3 10 0.0-0.8 10 [facility]: [address] [place] [address] Blood venous Normal Eos # 0.1 10 0.0-0.5 10 [facility]: [address] [place] [address] Blood venous Normal Baso # 0.0 10 0.0-0.2 10 [facility]: [address] [place] [address] 08/04/2020 CMP, Serum or Plasma Blood venous High Glu cose, Fasting 103 mg/dL 70-100 mg/dL [facility] nter: [address] [place] [address] Blood venous High Blood Urea Nitrogen 22 mg/dL 7-18 mg/dL [facility]: [address] [place] [address] Blood venous Normal Creatinine for GFR 0.97 mg/dL 0.55-1.30 mg/dL [facility]: [address] [place] [address] Blood venous Normal Glomerular Filtration Rate > 60.0 >51 [facility]: [address] [place] [address] Blood venous Normal Sodium Level 141 mEq/L 136-14 5 mEq/L [facility]: [address] [place] [address] Blood venous Normal Potassium Serum 4.5 mEq/L 3.5 -5.1 mEq/L [facility]: [address] [place] [address] Blood venous High Chloride Level 109 mEq/L 98-1 07 mEq/L [facility]: 830 [facility] Blood venous Normal Carbon Dioxide Level 29 mEq/L 21-32 mEq/L [facility]: 830 [facility] Blood venous Low Anion Gap 3 mEq/L 8-16 mEq/L [facility]: 830 [facility] Blood venous Normal Calcium Level 8.7 mg/dL 8.5-1 0.1 mg/dL [facility]: 830 [facility] Blood venous Normal AST/SGOT 11 U/L 7-37 U/L Tamika l [facility]: 830 [facility] Blood venous Normal ALT/SGPT 21 U/L 12-78 U/L [facility]: 830 [facility] Blood venous Normal Alkaline Phosphatase 65 U/L 4 5-117 U/L [facility]: 830 [facility] Blood venous Normal Bilirubin,total 0.2 mg/dL 0.2 -1.0 mg/dL [facility]: 830 [facility] Blood venous Normal Total Protein 6.4 gm/dL 6.4-8 .2 gm/dL [facility]: 0 [facility] Blood venous Normal Albumin 3.8 gm/dL 3.2-5.2 gm/ dL [facility]: 0 [facility] Blood venous Normal Albumin/globulin Ratio 1.5 1.2-2.2 [facility]: 0 [facility] 08/04/2020 Lipid Panel, Blood Blood venous Normal Trigl ycerides Level 116 mg/dL <150 mg/dL [facility] nter: 830 [facility] Blood venous High Cholesterol Level 221 mg/dL < 200 mg/dL [facility]: 0 [facility] Blood venous Normal HDL Cholesterol 81 mg/dL >40 mg/dL [facility]: 830 [facility] Blood venous High LDL Cholesterol 117 mg/dL <10 0 mg/dL [facility]: 830 [facility] Blood venous Normal Non-hdl-c 140 mg/dL Fi nal [facility]: 830 [facility] Blood venous Normal Cholesterol Risk Ratio 2.728 <5 [facility]: 830 [facility] 08/04/2020 Magnesium, Serum or Plasma Normal Magnesium Level 1.8 mg/dL 1.8-2.4 mg/dL [facility]: 83 0 [facility] 08/04/2020 Vitamin D, 25-Hydroxy, Total, Serum Blood venous Low Total 25(Oh) Vitamin D 21.1 NG/mL 30.0-100.0 NG/mL [facility]: 830 [facility] 03/18/2020 CBC W/ Auto Diff Normal White Blood Count 4.3 10 4.0-10.0 10 [facility]: 830 [facility] Normal Red Blood Count 4.22 10 4.00-5.40 10 [facility]: 830 [facility] Normal Hemoglobin 13.3 g/dL 12.0-15.5 g/dL [facility]: 830 [facility] Normal Hematocrit 40.8 % 36.0-47.0 % [facility]: 0 [facility] High Mean Corpuscular Volume 96.7 fL 80.0 -96.0 fL [facility]: 830 [facility] Normal Mean Corpuscular Hemoglobin 31.5 pg 27.0-33.0 pg [facility]: 830 [facility] Normal Mean Corpuscular HGB Conc 32.6 g/dL 32.0-36.5 g/dL [facility]: 830 [facility] Normal Red Cell Distribution Width 12.4 % 1 1.5-14.5 % [facility]: 0 [facility] Normal Platelet Count, Automated 252 10 150 -450 10 [facility]: 830 [facility] Normal Neutrophils % 64.1 % 36.0-66.0 % [facility]: 830 [facility] Normal Lymph % 25.8 % 24.0-44.0 % [facility]: 830 [facility] High [place] % 6.8 % 0.0-5.0 % Final [facility]: 830 [facility] Normal Eos % 1.9 % 0.0-3.0 % [facility]: 830 [facility] Normal Baso % 0.9 % 0.0-1.0 % [facility]: 830 [facility] Normal Immature Granulocyte % 0.5 % 0-3.0 % [facility]: 830 [facility] Normal Nucleated Red Blood Cell % 0.0 % 0- 0 % [facility]: 830 [facility] Normal Neutrophils # 2.7 10 1.5-8.5 10 Tamika [facility]: 830 [facility] Low Lymph # 1.1 10 1.5-5.0 10 [facility]: 830 [facility] Normal [place] # 0.3 10 0.0-0.8 10 [facility]: 830 [facility] Normal Eos # 0.1 10 0.0-0.5 10 [facility]: 830 [facility] Normal Baso # 0.0 10 0.0-0.2 10 [facility]: 0 [facility] 03/18/2020 CMP, Serum or Plasma Normal Glucose, Fastin g 82 mg/dL 70-100 mg/dL [facility]: 83 0 [facility] High Blood Urea Nitrogen 21 mg/dL 7-18 mg /dL [facility]: 0 [facility] Normal Creatinine for GFR 1.02 mg/dL 0.55-1 .30 mg/dL [facility]: 830 [facility] Normal Glomerular Filtration Rate 59.9 >5 1 [facility]: 830 [facility] Normal Sodium Level 140 mEq/L 136-145 mEq/L [facility]: 830 [facility] High Potassium Serum 5.4 mEq/L 3.5-5.1 mE q/L [facility]: 830 [facility] High Chloride Level 108 mEq/L 98-107 mEq/ L [facility]: 830 [facility] Normal Carbon Dioxide Level 29 mEq/L 21-32 mEq/L [facility]: 830 [facility] Low Anion Gap 3 mEq/L 8-16 mEq/L [facility]: 830 [facility] Normal Calcium Level 8.8 mg/dL 8.5-10.1 mg/ dL [facility]: 830 [facility] Normal AST/SGOT 20 U/L 7-37 U/L [facility]: 830 [facility] Normal ALT/SGPT 22 U/L 12-78 U/L [facility]: 830 [facility] Normal Alkaline Phosphatase 78 U/L 45-117 U /L [facility]: 830 [facility] Normal Bilirubin,total 0.3 mg/dL 0.2-1.0 mg /dL [facility]: 830 [facility] Normal Total Protein 6.8 gm/dL 6.4-8.2 gm/d L [facility]: 830 [facility] Normal Albumin 3.7 gm/dL 3.2-5.2 gm/dL Tamika [facility]: 830 [facility] Normal Albumin/globulin Ratio 1.2 1.2-2. 2 [facility]: 830 [facility] 03/18/2020 Lipid Panel, Blood High Triglycerides Lev el 153 mg/dL <150 mg/dL [facility]: 83 0 [facility] Normal Cholesterol Level 193 mg/dL <200 mg/ dL [facility]: 830 [facility] Normal HDL Cholesterol 91 mg/dL >40 mg/dL F inal [facility]: 830 [facility] Normal LDL Cholesterol 71 mg/dL <100 mg/dL [facility]: [address] [place] [address] Normal Non-hdl-c 102 mg/dL Final [facility]: 830 [facility] Normal Cholesterol Risk Ratio 2.120 <5 [facility]: [address] [place] [address] 03/18/2020 TSH + Free T4, Serum Normal Thyroid Stimulating Hormone 2.710 uIU/mL 0.358-3.740 uIU/mL [facility] nter: [address] [place] [address] Normal Free T4 0.90 NG/dL 0.76-1.46 NG/dL F inal [facility]: [address] [place] [address] 03/18/2020 Vitamin D, 25-Hydroxy, Total, Serum Low Total 25(Oh) Vitamin D 25.2 NG/mL 30.0-100.0 NG/mL [facility] nter: [address] [place] [address] 03/18/2020 HbA1C (Hemoglobin a1C), Blood Normal Hemogl obin a1C 4.9 % [facility]: [address] [place] [address] Normal Estimated Average Glucose 94 mg/dL 6 0-110 mg/dL [facility]: [address] [place] [address] Past Encounters 02/01/2021 Hypertensive Disorder; Intermittent Palpitations; Mixed Anxiety and Depressive Disorder; Nicotine Dependence with Current Use [facility]: [address] [place] [phone], Ph. 10/19/2020 Asthma; Chronic Low Back Pain; Chronic Obstructive Lung Disease; Microscopic Hematuria; Patient Asked to Attend [facility]: [address] [place] [phone], Ph. 08/04/2020 Low Back Pain; Essential Hypertension [facility]: [address] [place] [phone], Ph. 03/22/2020 Requires Influenza Virus Vaccination; Hypertensive Disorder; Low Back Pain [facility]: [address] [place] [address] [place] [phone], Ph. 03/18/2020 Influenza Vaccine Needed Kimi [facility]: [address] [place] [phone], Ph. Social History Tobacco Smoking Status Heavy Tobacco Smoker (1 pack per a da y) Vaccine List Vaccine Type influenza, injectable, quadrivalent, pre servative free 03/22/20200.5 mL 03/25/20200.5 mL Tdap 12/06/2015 Plan of Care Patient Instructions [...] Surgeries None recorded. Imaging None recorded. Vitals 02/01/2021 02:40PM ESTABLISHED [id number] Height Weight BMI Blood Pressure 60 in 122 lbs 8 oz 23.9 kg/m2 137/95 mm[Hg] 10/19/2020 05:40PM TELEHEALTH 20 Height 60 in 08/04/2020 01:40PM ESTABLISHED [id number] Height Weight BMI Blood Pressure 60 in 133 lbs 8 oz 26.1 kg/m2 134/99 mm[Hg] 03/22/2020 01:20PM ESTABLISHED [id number] Height Weight BMI Blood Pressure 60 in [...]
--- OUTSIDE RECORDS SUMMARY | 2021-05-03 19:25 | CCD ---
Author Author Ariadna Haywood Organization Unknown Address [address] [address] Phone Care Team Providers Care Automation And Controls Instructor Name Role Phone Ana Haywood PCP Allergies, Adverse Reactions, Alerts Concept Allergy Name Reaction Severity Onset Date Status Documentation Date Phone Number Npid Taxonomy Code Taxonomy Desc Author Last Name Author Fi rst Name Concept Type 911239 nkda Active 03/07/2018 RXNORM Problem List Concept [...] Name Taxonomy Code Taxonomy Desc Phone Number [phone] buspirone by mouth [id number] 11/15/2020 02/07/2021 twice a day 30 10 mg tablet 87628 [phone] Poonam Smyth [id number] Nurse Aidan reillytitionmaura [phone] Lexapro by mouth [id number] 03/07/2018 03/09/2021 once a day 90 20 m g tablet 03481 [id number] Poonam Smyth [id number] Nurse Johnna zhu [phone] quetiapine by mouth [id number] 04/28/2020 03/09/2021 at bedtime 90 50 mg tablet 10580 006388 [phone] Poonam Smyth [id number] Nurse Aidan reillytitionmaura [phone] 895487 trazodone by mouth [id number] 10/14/2020 03/09/2021 at bedtime 90 150 mg tablet 35675 [id number] [phone] Poonam Smyth [id number] Nurse Aidan jin [phone] Social History Social History Element Description Concept Effective Date Smoking Status Unknown if ever smoked [id number] Immunizations No Data in Section Vital Signs No Data in Section Procedures Date Concept Id Description Targeted Site Concept Targeted Site Concept Type 02/04/2021 38377 Extended Individual Psychotherapy - 45 min CPT Patient has no history of implantable de vices Encounters Encounter Start Date End Date Encounter Type Description Diagnosis Di agnosis Desc Location Author First Name Author Last Name Npid Taxonomy Cod e Taxonomy Desc Phone Number Location Addr1 Location Addr2 Location [facility] Location Sta te Location [facility] [id number] 02/04/2021 02/04/2021 43283 Extended Individual Psych otherapy - 45 min F33.3 Major depressv disorder, recurrent, severe w psych sym ptoms [facility] Yobany Ana [phone] [id number] Mental He alth [phone] [address] [address] Plan of Treatment No Data in Section Lab Results No Data in Section Instructions No Data in Section Insurance Providers Insurance Id Policy Effective Date Policy Thru Date Company Leeann watkins [id number] 2017 [employer] Managed Sabine allred
--- OUTSIDE RECORDS SUMMARY | 2021-05-03 19:25 | CCD ---
Author Author HajaAriadna grantYulia Organization Unknown Address [address] [address] Phone Care Team Providers Care Salesperson Used Cars Name Role Phone Poonam Smyth PCP Allergies, Adverse Reactions, Alerts Concept Allergy Name Reaction Severity Onset Date Status Documentation Date Phone Number Npid Taxonomy Code Taxonomy Desc Author Last Name Author Fi rst Name Concept Type 628232 nkda Active 03/07/2018 RXNORM Problem List Concept [...] Name Taxonomy Code Taxonomy Desc Phone Number [id number] Lexapro by mouth [id number] 03/07/2018 03/09/2021 once a day 90 20 m g tablet 11112 [id number] [phone] Poonam Smyth [id number] Nurse Johnna zhu [phone] quetiapine by mouth [id number] 04/28/2020 03/09/2021 at bedtime 90 50 mg tablet 71895 [id number] [id number] Poonam Smyth [id number] Nurse Aidan jin [phone] trazodone by mouth [id number] 10/14/2020 03/09/2021 at bedtime 90 150 mg tablet 95475 [id number] [phone] Poonam Smyth [id number] Nurse Aidan jin [phone] Social History Social History Element Description Concept Effective Date Smoking Status Unknown if ever smoked [id number] Immunizations No Data in Section Vital Signs No Data in Section Procedures Date Concept Id Description Targeted Site Concept Targeted Site Concept Type 02/16/2021 71456 E/M Level 3 - Established Patient CPT Patient has no history of implantable de vices Encounters Encounter Start Date End Date Encounter Type Description Diagnosis Di agnosis Desc Location Author First Name Author Last Name Npid Taxonomy Cod e Taxonomy Desc Phone Number Location Addr1 Location Addr2 Location [facility] Location Sta te Location Zip [id number] 02/16/2021 02/16/2021 61471 E/M Level 3 - Established Pa tient F33.3 Major depressv disorder, recurrent, severe w psych symptoms [facility] Haja Levin [id number] 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 [phone] [address] [phone] Plan of Treatment No Data in Section Lab Results No Data in Section Instructions No Data in Section Functional Cognitive Status No Data in Section Insurance Providers Insurance Id Policy Effective Date Policy Thru Date [employer] N june [id number] 2017 [employer] Managed Sabine allred
--- OUTSIDE RECORDS SUMMARY | 2021-05-03 19:25 | CCD ---
Author Organization Unknown Address [address] [place] [address] Phone [phone] Care Team Providers Care Supervisor Paper Products Name Role Phone JASWINDER DEWEY MD 3 [phone] Allergies Code Code System Name Reaction Severity Status Onset 7703055 RxNorm Latex Rash Mild to Moderate Active Medications Name Status Start Date Stop Date albuterol sulfate HFA 90 mcg/actuation a erosol inhaler INHALE ONE PUFF BY MOUTH THREE TO FOUR TIMES DAILY NEEDED Active Not available aspirin 81 mg tablet,delayed [...] ONE PUFF BY MOUTH EVERY 12 HOURS Active Not available lisinopril 20 mg tablet TAKE ONE [...] APPLY ONE PATCH TO THE SKIN DAILY Active Not a vailable pantoprazole 40 mg tablet,delayed releas e TAKE [...] lable 09/20/2020 MRI, Lumbar Spine, W/o Contrast [facility] Radiology Dept [address] [place] [address] [phone] (Work Place) 11/15/2020 MRI, Lumbar Spine, W/o Contrast [facility] [address] [place] [address] (Work Place) Results Lab Results Date Name Specimen Result Interpretation Description Value Range Status Address 01/21/2021 [facility] Pdf Report NOS No observation recorded. [facility] Cov[facility]: [address] [facility] 01/21/2021 SARS CoV 2 RNA (COVID-19), QL, workers' compensation hearings officer-PCR, Respirat ory Specimen NOS Normal Sars-cov-2 negative negative Final [facility] Cov[facility]: 501 [facility] [place] Past Encounters 02/02/2021 Pre-surgery Testing; Viral Screening Antonino Douglas MD: [address] [facility], [facility] [place] [address], Ph. [phone] 01/21/2021 Pre-surgery Testing; Viral Screening Antonino Douglas MD: [address] [facility], [facility] [place] [address], Ph. [phone] 01/17/2021 Lumbar Radiculopathy; Lumbosacral Spondylosis without Myelopathy; Myofascial Pain; Degeneration of Lumbar Intervertebral Disc; Degeneration of Lumbosacral Intervertebral Disc; Displacement of Lumbar Intervertebral Disc without Myelopathy; Intervertebral Disc Disorder; Spondylosis without Myelopathy Brianna Antwan Juan Carlos, CARTON AND CAN SUPPLY SUPERVISOR: [address] [facility], [facility] [place] [address], Ph. 12/20/2020 Myofascial Pain; Lumbar Radiculopathy; Lumbosacral Spondylosis without Myelopathy Antonino Douglas MD: [address] [facility], [facility] [place] [address], Ph. 09/20/2020 Lumbar Radiculopathy; Lumbosacral Spondylosis without Myelopathy; Myofascial Pain Antonino Douglas MD: [address] [facility], [facility] [place] [address], Ph. Social History Tobacco Smoking Status Heavy Tobacco Smoker (3 or more packs per a day) Vaccine List None recorded. Plan of Care Reminders Provider Appointments None recorded. Lab None recorded. Referral None recorded. Procedures None recorded. Surgeries None recorded. Imaging None recorded. Vitals 02/02/2021 08:00AM COVID SPECIMEN COLLECTION Height 4 ft 9 in 01/17/2021 03:45PM FOLLOW-UP Height Blood Pressure 4 ft 9 in 140/97 mm[Hg] 09/20/2020 03:00PM NEW PATIENT Height Weight BMI Blood Pressure 4 ft 9 in 125 lbs 27 kg/m2 145/97 mm[Hg]
--- OUTSIDE RECORDS SUMMARY | 2021-05-03 19:25 | CCD ---
Author Organization Unknown Address [address] [place] [address] Phone [phone] Care Team Providers Care Shredded Filler Cigar Maker Machine Name Role Phone JASWINDER DEWEY MD 3 [phone] Allergies Code Code System Name Reaction Severity Status Onset 1008716 RxNorm Latex Rash Mild to Moderate Active [...] lable 09/20/2020 MRI, Lumbar Spine, W/o Contrast [facility]iology Dept [address] [place], [place] [phone] (Work Place) 11/15/2020 [facility] [address] [place] [address] (Work Place) Results Lab Results Date Name Specimen Result Interpretation Description Value Range Status Address 02/07/2021 [facility] Pdf Report NOS No observation recorded. [facility] Covid: 501 [facility] [place] 02/07/2021 SARS CoV 2 RNA (COVID-19), QL, bobtailer-PCR, Respirat ory Specimen NOS Normal Sars-cov-2 negative negative Final [facility] Covid: 501 [facility] [place] 02/02/2021 SARS CoV 2 RNA (COVID-19), QL, bobtailer-PCR, Respiratory Sp ecimen Other No observation recorded. [facility] Covid: 501 [facility] [place] 01/21/2021 [facility] Pdf Report NOS No observation recorded. [facility] Cov[facility]: [address] [facility] [place] 01/21/2021 SARS CoV 2 RNA (COVID-19), QL, bobtailer-PCR, Respirat ory Specimen NOS Normal Sars-cov-2 negative negative Final [facility]: 501 [facility] [place] Past Encounters 02/10/2021 Lumbar Radiculopathy; Degeneration of Lumbar Intervertebral Disc; Degeneration of Lumbosacral Intervertebral Disc; Displacement of Lumbar Intervertebral Disc without Myelopathy; Intervertebral Disc Disorder; Spondylosis without Myelopathy; Lumbosacral Spondylosis without Myelopathy; Myofascial Pain Antonino Douglas MD: [address] [address], [facility] [place] [address], Ph. 02/07/2021 Pre-surgery Testing; Viral Screening Antonino Douglas MD: [address] [address], [place] [address], Ph. [phone] 02/02/2021 Pre-surgery Testing; Viral Screening Antonino Douglas MD: [address] [address], [place] [address], Ph. [phone] 01/21/2021 Pre-surgery Testing; Viral Screening Antonino Douglas MD: [address] [address], [facility] [place] [address], Ph. [phone] 01/17/2021 Lumbar Radiculopathy; Lumbosacral Spondylosis without Myelopathy; Myofascial Pain; Degeneration of Lumbar Intervertebral Disc; Degeneration of Lumbosacral Intervertebral Disc; Displacement of Lumbar Intervertebral Disc without Myelopathy; Intervertebral Disc Disorder; Spondylosis without Myelopathy Brianna Rangel NP: [address] [address], [facility] [place] [address], Ph. 12/20/2020 Myofascial Pain; Lumbar Radiculopathy; Lumbosacral Spondylosis without Myelopathy Antonino Douglas MD: [address] [address], [place] [address], Ph. 09/20/2020 Lumbar Radiculopathy; Lumbosacral Spondylosis without Myelopathy; Myofascial Pain Antonino Douglas MD: [address] [address], [place] [address], Ph. Social History Tobacco Smoking Status Heavy [...]
--- OUTSIDE RECORDS SUMMARY | 2021-05-03 19:25 | CCD ---
Author Organization Unknown Address [address] [place] [address] Phone [phone] Care Team Providers Care Precision Printing Worker Name Role Phone JASWINDER DEWEY MD 3 [phone] Allergies Code Code System Name Reaction Severity Status Onset 7351641 RxNorm Latex Rash Mild to Moderate Active [...] 09/20/2020 MRI, Lumbar Spine, W/o Contrast [facility] Radiology Dept [address] [place], [place] [phone] (Work Place) 11/15/2020 MRI, Lumbar Spine, W/o Contrast [facility] Radiology Dept [address] [place] [address] (Work Place) Results Lab Results Date Name Specimen Result Interpretation Description Value Range Status Address 01/21/2021 [facility] Pdf Report NOS No observation recorded. [facility] Covid: 501 [facility] 01/21/2021 SARS CoV 2 RNA (COVID-19), QL, metal sorter-PCR, Respirat ory Specimen NOS Normal Sars-cov-2 negative negative Final [facility] Covid: [address] [facility] [place] Past Encounters 02/07/2021 Pre-surgery Testing; Viral Screening Antonino Douglas MD: [address] [facility], [facility] [place] [address], Ph. [phone] 02/02/2021 Pre-surgery Testing; Viral Screening Antonino Douglas MD: [address] [facility], [place] [address], Ph. [phone] 01/21/2021 Pre-surgery Testing; Viral Screening Antonino Douglas MD: [address] [facility], [facility] [place] [address], Ph. [phone] 01/17/2021 Lumbar Radiculopathy; Lumbosacral Spondylosis without Myelopathy; Myofascial Pain; Degeneration of Lumbar Intervertebral Disc; Degeneration of Lumbosacral Intervertebral Disc; Displacement of Lumbar Intervertebral Disc without Myelopathy; Intervertebral Disc Disorder; Spondylosis without Myelopathy Brianna Rangel, AMARI: [address] [address], [place] [address], Ph. 12/20/2020 Myofascial Pain; Lumbar Radiculopathy; Lumbosacral Spondylosis without Myelopathy Antonino Douglas MD: [address] [address], [place] [address], Ph. 09/20/2020 Lumbar Radiculopathy; Lumbosacral Spondylosis without Myelopathy; Myofascial Pain Antonino Douglas MD: [address] [address], [facility] [place] [address], Ph. Social History Tobacco Smoking Status Heavy [...]
--- OUTSIDE RECORDS SUMMARY | 2021-05-03 19:25 | CCD ---
Author Organization Unknown Address [address] [place] [address] Phone [phone] Care Team Providers Care Ground Hand Name Role Phone JASWINDER DEWEY MD 3 [phone] Allergies Code Code System Name Reaction Severity Status Onset 1678968 RxNorm Latex Rash Mild to Moderate Active [...] lable 09/20/2020 MRI, Lumbar Spine, W/o Contrast [facility] Radiology Dept [address] [place] [address] (Work Place) 11/15/2020 MRI, Lumbar Spine, W/o Contrast [facility] Radiology Dept [address] [place] [address] (Work Place) Results Lab Results Date Name Specimen Result Interpretation Description Value Range Status Address 02/07/2021 [facility] Pdf Report NOS No observation recorded. [facility] Covid: [address] [facility] [place] 02/07/2021 SARS CoV 2 RNA (COVID-19), QL, filler machine operator-PCR, Respirat ory Specimen NOS Normal Sars-cov-2 negative negative Final [facility] Covid: [address] [facility] [place] 02/02/2021 SARS CoV 2 RNA (COVID-19), QL, filler machine operator-PCR, Respiratory Sp ecimen Other No observation recorded. [facility] Covid: [address] [facility] [place] 01/21/2021 [facility] Pdf Report NOS No observation recorded. [facility] Covid: [address] [facility] [place] 01/21/2021 SARS CoV 2 RNA (COVID-19), QL, filler machine operator-PCR, Respirat ory Specimen NOS Normal Sars-cov-2 negative negative Final [facility] Covid: [address] [facility] [place] Past Encounters 03/01/2021 Lumbar Radiculopathy; Lumbosacral Spondylosis without Myelopathy; Myofascial Pain; Degeneration of Lumbar Intervertebral Disc; Degeneration of Lumbosacral Intervertebral Disc; Displacement of Lumbar Intervertebral Disc without Myelopathy; Intervertebral Disc Disorder; Spondylosis without Myelopathy Brianna Rangel, FISH CUTTER: [address] [facility], [place] [address], Ph. 02/10/2021 Lumbar Radiculopathy; Degeneration of Lumbar Intervertebral Disc; Degeneration of Lumbosacral Intervertebral Disc; Displacement of Lumbar Intervertebral Disc without Myelopathy; Intervertebral Disc Disorder; Spondylosis without Myelopathy; Lumbosacral Spondylosis without Myelopathy; Myofascial Pain Antonino Douglas MD: [address] [address], [facility] [place] [address], Ph. 02/07/2021 Pre-surgery Testing; Viral Screening Antonino Douglas MD: [address] [address], [facility] [place] [address], Ph. [phone] 02/02/2021 Pre-surgery Testing; Viral Screening Antonino Douglas MD: [address] [address], [facility] [place] [address], Ph. [phone] 01/21/2021 Pre-surgery Testing; Viral Screening Antonino Douglas MD: [address] [address], [place] [address], Ph. [phone] 01/17/2021 Lumbar Radiculopathy; Lumbosacral Spondylosis without Myelopathy; Myofascial Pain; Degeneration of Lumbar Intervertebral Disc; Degeneration of Lumbosacral Intervertebral Disc; Displacement of Lumbar Intervertebral Disc without Myelopathy; Intervertebral Disc Disorder; Spondylosis without Myelopathy Brianna Rangel, FISH CUTTER: [address] [facility], [facility] [place] [address], Ph. 12/20/2020 Myofascial Pain; Lumbar Radiculopathy; Lumbosacral Spondylosis without Myelopathy Antonino Douglas MD: [address], [place] [address], Ph. 09/20/2020 Lumbar Radiculopathy; Lumbosacral Spondylosis without Myelopathy; Myofascial Pain Antonino Douglas MD: [address], [place] [address], Ph. Social History Tobacco Smoking Status Heavy [...]
--- OUTSIDE RECORDS SUMMARY | 2021-05-03 19:25 | CCD ---
Author Organization Unknown Address [address] [place] [id number] Phone [phone] Care Team Providers Care Orthotist Or Prosthetist Name Role Phone [facility] 124 [phone] [facility] 2 [phone] Allergies Code Code System Name Reaction Severity [...] 21 mg/24 hr daily transdermal p atch Apply 1 patch every day by transdermal route. Active Not available pantoprazole 40 mg tablet,delayed releas e [...] Blood C ount 5.3 10 4.0-10.0 10 [facility]: 83 0 [facility] Blood venous Low Red Blood Count 3.97 10 4.00- 5.40 10 [facility]: 830 [facility] Blood venous Normal Hemoglobin 12.8 g/dL 12.0-15. 5 g/dL [facility]: 830 [facility] Blood venous Normal Hematocrit 38.6 % 36.0-47.0 % [facility]: 830 [facility] Blood venous High Mean Corpuscular Volume 97.2 fL 80.0-96.0 fL [facility]: 830 [facility] Blood venous Normal Mean Corpuscular Hemoglob in 32.2 pg 27.0-33.0 pg [facility]: 830 [facility] Blood venous Normal Mean Corpuscular HGB Conc 33.2 g/dL 32.0-36.5 g/dL [facility]: [address] [place] [address] Blood venous Normal Red Cell Distribution Wid th 12.7 % 11.5-14.5 % [facility]: [address] [place] [address] Blood venous Normal Platelet Count, Automated 273 10 150-450 10 [facility]: [address] [place] [address] Blood venous High Neutrophils % 67.0 % 36.0-66. 0 % [facility]: [address] [place] [address] Blood venous Low Lymph % 20.9 % 24.0-44.0 % [facility]: [address] [place] [address] Blood venous High Miner % 9.4 % 2.0-8.0 % [facility]: [address] [place] [address] Blood venous Normal Eos % 1.3 % 0.0-3.0 % [facility]: [address] [place] [address] venous Normal Baso % 0.8 % 0.0-1.0 % [facility]: [address] [place] [address] Blood venous Normal Immature Granulocyte % 0.6 % 0-3.0 % [facility]: [address] [place] [address] Blood venous Normal Nucleated Red Blood Cell % 0. 0 % 0-0 % [facility]: [address] [place] [address] Blood venous Normal Neutrophils # 3.6 10 1.5-8.5 10 [facility]: [address] [place] [address] Blood venous Low Lymph # 1.1 10 1.5-5.0 10 [facility]: [address] [place] [address] Blood venous Normal Miner # 0.5 10 0.0-0.8 10 [facility]: [address] [place] [address] Blood venous Normal Eos # 0.1 10 0.0-0.5 10 [facility]: [address] [place] [address] Blood venous Normal Baso # 0.0 10 0.0-0.2 10 [facility]: [address] [place] [address] 09/10/2020 UA W/ Reflex to Culture Normal Appearance, Urine Rfx clear clear [facility]: 83 0 [facility] Normal Color, Urine Rfx straw yellow [facility]: 830 [facility] Normal pH,urine Rfx 7.0 units 5.0-9.0 units [facility]: 830 [facility] Normal Specific [place] Ur Auto Rfx 1.005 1.002-1.035 [facility]: 830 [facility] Normal Protein, Urine Auto Rfx negative mg/ dL negative mg/dL [facility]: 830 [facility] Normal Glucose, Urine (UA) Auto Rfx n egative mg/dL negative mg/dL [facility]: 830 [facility] Normal Ketone, Urine Auto Rfx negative mg/d L negative mg/dL [facility]: 830 [facility] Normal Urobilinogen, Urine Auto Rfx 0.2 mg/ dL 0.0-2.0 mg/dL [facility]: 830 [facility] Normal Bilirubin, Urine Auto Rfx negative n egative [facility]: 830 [facility] Normal Nitrite, Urine Auto Rfx negative neg ative [facility]: 830 [facility] Normal Leukocyte Esterase Ur Auto Rfx negat bunny negative [facility]: 830 [facility] High Blood, Urine Blood Rfx 1+ negati ve [facility]: 830 [facility] Normal WBC, Urine Auto Rfx 1 /hpf 0-3 /hpf [facility]: 830 [facility] Normal RBC, Urine Auto Rfx 1 /hpf 0-3 /hpf [facility]: 830 [facility] Normal Bacteria, Urine Auto Rfx negative ne gative [facility]: 830 [facility] Normal Squam Epithelial Cell Ur Aurfx 1 /hp f 0-6 /hpf [facility]: 830 [facility] Normal Hyaline Cast, Urine Auto Rfx 0 /lpf 0-1 /lpf [facility]: [address] [place] [address] 09/10/2020 PT/INR Normal Prothrombin Time 12.8 secon ds 12.5-14.3 seconds [facility]: [address] [place] [address] Normal Inr 0.95 [facility]: [address] [place] [address] 09/10/2020 Lactic Acid, Serum or Plasma Normal Lactic Acid Sepsis Protocol 0.8 mmol/L 0.4-2.0 mmol/L [facility]: [address] [place] [address] 09/10/2020 Cardiovascular Assessment Panel, Serum High CPK Creatine Phosphokinase 690 U/L 26-192 U/L [facility]: [address] [place] [address] High CK-mb Value Mass 10.5 NG/mL <3.6 NG/ mL [facility]: [address] [place] [address] Normal mb/CK Relative Index 1.52 < or =4 [facility]: [address] [place] [address] Normal Troponin I 0.02 NG/mL < 0.10 NG/mL F inal [facility]: [address] [place] [address] 09/10/2020 Hepatic Function Panel, Serum Normal AST/SG OT 35 U/L 7-37 U/L [facility]: [address] [place] [address] Normal ALT/SGPT 29 U/L 12-78 U/L [facility]: [address] [place] [address] Normal Alkaline Phosphatase 94 U/L 45-117 U /L [facility]: [address] [place] [address] Normal Bilirubin,total 0.7 mg/dL 0.2-1.0 mg /dL [facility]: [address] [place] [address] Normal Bilirubin,direct 0.2 mg/dL 0.0-0.2 m g/dL [facility]: [address] [place] [address] Normal Total Protein 7.8 gm/dL 6.4-8.2 gm/d L [facility]: [address] [place] [address] Normal Albumin 4.4 gm/dL 3.2-5.2 gm/dL Tamika l [facility]: 830 [facility] Normal Albumin/globulin Ratio 1.3 1.2-2. 2 [facility]: 0 [facility] 09/10/2020 BMP, Serum or Plasma Normal Glucose, Fastin g 90 mg/dL 70-100 mg/dL [facility]: 83 0 [facility] Normal Blood Urea Nitrogen 15 mg/dL 7-18 mg /dL [facility]: [address] [place] [address] Normal Creatinine for GFR 0.94 mg/dL 0.55-1 .30 mg/dL [facility]: [address] [place] [address] Normal Glomerular Filtration Rate > 60.0 >5 1 [facility]: [address] [place] [address] Low Sodium Level 135 mEq/L 136-145 mEq/L [facility]: [address] [place] [address] Normal Potassium Serum 3.6 mEq/L 3.5-5.1 mE q/L [facility]: 0 [facility] Normal Chloride Level 100 mEq/L 98-107 mEq/ L [facility]: 0 [facility] Normal Carbon Dioxide Level 31 mEq/L 21-32 mEq/L [facility]: [address] [place] [address] Low Anion Gap 4 mEq/L 8-16 mEq/L [facility]: 0 [facility] Normal Calcium Level 9.8 mg/dL 8.5-10.1 mg/ dL [facility]: 0 [facility] 09/10/2020 T4, Total, Serum Normal Thyroxine (T4) 9.2 ug/dL 4.5-12.0 ug/dL [facility]: 83 0 [facility] 09/10/2020 TSH, Serum or Plasma High Thyroid Stimulating Hormone 6.590 uIU/mL 0.358-3.740 uIU/mL [facility] nter: 0 [facility] 09/10/2020 Respiratory Virus Panel [id number] No observ ation recorded. [facility]: [address] [place], [place] [id number] 09/10/2020 Culture, Blood BLOOD No observation recorded. [facility]: 830 [facility] 09/10/2020 Culture, Blood BLOOD No observation recorded. [facility]: 830 [facility] 08/04/2020 CBC W/ Auto Diff Blood venous Normal White Blood C ount 4.0 10 4.0-10.0 10 [facility]: 83 0 [facility] Blood venous Low Red Blood Count 3.73 10 4.00- 5.40 10 [facility]: 830 [facility] Blood venous Normal Hemoglobin 12.2 g/dL 12.0-15. 5 g/dL [facility]: [address] [place] [address] Blood venous Normal Hematocrit 37.4 % 36.0-47.0 % [facility]: [address] [place] [address] Blood venous High Mean Corpuscular Volume 100.3 fL 80.0-96.0 fL [facility]: [address] [place] [address] Blood venous Normal Mean Corpuscular Hemoglob in 32.7 pg 27.0-33.0 pg [facility]: 0 [facility] Blood venous Normal Mean Corpuscular HGB Conc 32.6 g/dL 32.0-36.5 g/dL [facility]: 830 [facility] Blood venous Normal Red Cell Distribution Wid th 12.4 % 11.5-14.5 % [facility]: 0 [facility] Blood venous Normal Platelet Count, Automated 225 10 150-450 10 [facility]: 830 [facility] Blood venous Normal Neutrophils % 64.3 % 36.0-66. 0 % [facility]: 0 [facility] Blood venous Normal Lymph % 24.8 % 24.0-44.0 % [facility]: 830 [facility] Blood venous High Miner % 8.2 % 2.0-8.0 % [facility]: [address] [place] [address] Blood venous Normal Eos % 1.5 % 0.0-3.0 % [facility]: [address] [place] [address] Blood venous Normal Baso % 0.5 % 0.0-1.0 % [facility]: [address] [place] [address] Blood venous Normal Immature Granulocyte % 0.7 % 0-3.0 % [facility]: [address] [place] [address] Blood venous Normal Nucleated Red Blood Cell % 0. 0 % 0-0 % [facility]: [address] [place] [address] Blood venous Normal Neutrophils # 2.6 10 1.5-8.5 10 [facility]: [address] [place] [address] Blood venous Low Lymph # 1.0 10 1.5-5.0 10 [facility]: [address] [place] [address] Blood venous Normal Miner # 0.3 10 0.0-0.8 10 [facility]: [address] [place] [address] Blood venous Normal Eos # 0.1 10 0.0-0.5 10 [facility]: [address] [place] [address] Blood venous Normal Baso # 0.0 10 0.0-0.2 10 [facility]: [address] [place] [address] 08/04/2020 CMP, Serum or Plasma Blood venous High Glu cose, Fasting 103 mg/dL 70-100 mg/dL [facility] nter: [address] [place] [address] Blood venous High Blood Urea Nitrogen 22 mg/dL 7-18 mg/dL [facility]: [address] [place] [address] Blood venous Normal Creatinine for GFR 0.97 mg/dL 0.55-1.30 mg/dL [facility]: [address] [place] [address] Blood venous Normal Glomerular Filtration Rate > 60.0 >51 [facility]: [address] [place] [address] Blood venous Normal Sodium Level 141 mEq/L 136-14 5 mEq/L [facility]: [address] [place] [address] Blood venous Normal Potassium Serum 4.5 mEq/L 3.5 -5.1 mEq/L [facility]: 830 [facility] Blood venous High Chloride Level 109 mEq/L 98-1 07 mEq/L [facility]: 830 [facility] Blood venous Normal Carbon Dioxide Level 29 mEq/L 21-32 mEq/L [facility]: 830 [facility] Blood venous Low Anion Gap 3 mEq/L 8-16 mEq/L [facility]: 830 [facility] Blood venous Normal Calcium Level 8.7 mg/dL 8.5-1 0.1 mg/dL [facility]: 830 [facility] Blood venous Normal AST/SGOT 11 U/L 7-37 U/L [facility]: 830 [facility] Blood venous Normal ALT/SGPT 21 U/L 12-78 U/L [facility]: 830 [facility] Blood venous Normal Alkaline Phosphatase 65 U/L 4 5-117 U/L [facility]: 830 [facility] Blood venous Normal Bilirubin,total 0.2 mg/dL 0.2 -1.0 mg/dL [facility]: 830 [facility] Blood venous Normal Total Protein 6.4 gm/dL 6.4-8 .2 gm/dL [facility]: [address] [place] [address] Blood venous Normal Albumin 3.8 gm/dL 3.2-5.2 gm/ dL [facility]: 0 [facility] Blood venous Normal Albumin/globulin Ratio 1.5 1.2-2.2 [facility]: 0 [facility] 08/04/2020 Lipid Panel, Blood Blood venous Normal Trigl ycerides Level 116 mg/dL <150 mg/dL [facility] nter: 830 [facility] Blood venous High Cholesterol Level 221 mg/dL < 200 mg/dL [facility]: 830 [facility] Blood venous Normal HDL Cholesterol 81 mg/dL >40 mg/dL [facility]: 830 [facility] Blood venous High LDL Cholesterol 117 mg/dL <10 0 mg/dL [facility]: 830 [facility] Blood venous Normal Non-hdl-c 140 mg/dL [facility]: 830 [facility] Blood venous Normal Cholesterol Risk Ratio 2.728 <5 [facility]: 830 [facility] 08/04/2020 Magnesium, Serum or Plasma Normal Magnesium Level 1.8 mg/dL 1.8-2.4 mg/dL [facility]: 83 0 [facility] 08/04/2020 Vitamin D, 25-Hydroxy, Total, Serum Blood venous Low Total 25(Oh) Vitamin D 21.1 NG/mL 30.0-100.0 NG/mL [facility]: [address] [place] [address] 03/18/2020 CBC W/ Auto Diff Normal White Blood Count 4.3 10 4.0-10.0 10 [facility]: [address] [place] [address] Normal Red Blood Count 4.22 10 4.00-5.40 10 [facility]: 0 [facility] Normal Hemoglobin 13.3 g/dL 12.0-15.5 g/dL [facility]: [address] [place] [address] Normal Hematocrit 40.8 % 36.0-47.0 % [facility]: [address] [place] [address] High Mean Corpuscular Volume 96.7 fL 80.0 -96.0 fL [facility]: [address] [place] [address] Normal Mean Corpuscular Hemoglobin 31.5 pg 27.0-33.0 pg [facility]: [address] [place] [address] Normal Mean Corpuscular HGB Conc 32.6 g/dL 32.0-36.5 g/dL [facility]: [address] [place] [address] Normal Red Cell Distribution Width 12.4 % 1 1.5-14.5 % [facility]: [address] [place] [address] Normal Platelet Count, Automated 252 10 150 -450 10 [facility]: [address] [place] [address] Normal Neutrophils % 64.1 % 36.0-66.0 % [facility]: 830 [facility] Normal Lymph % 25.8 % 24.0-44.0 % [facility]: 830 [facility] High Miner % 6.8 % 0.0-5.0 % [facility]: 830 [facility] Normal Eos % 1.9 % 0.0-3.0 % [facility]: 830 [facility] Normal Baso % 0.9 % 0.0-1.0 % [facility] system: 830 [facility] Normal Immature Granulocyte % 0.5 % 0-3.0 % [facility]: 830 [facility] Normal Nucleated Red Blood Cell % 0.0 % 0- 0 % [facility]: 830 [facility] Normal Neutrophils # 2.7 10 1.5-8.5 10 [facility]: 830 [facility] Low Lymph # 1.1 10 1.5-5.0 10 [facility]: 830 [facility] Normal Miner # 0.3 10 0.0-0.8 10 [facility]: 830 [facility] Normal Eos # 0.1 10 0.0-0.5 10 [facility] system: 830 [facility] Normal Baso # 0.0 10 0.0-0.2 10 [facility]: 830 [facility] 03/18/2020 CMP, Serum or Plasma Normal Glucose, Fastin g 82 mg/dL 70-100 mg/dL [facility]: 83 0 [facility] High Blood Urea Nitrogen 21 mg/dL 7-18 mg /dL [facility]: 0 [facility] Normal Creatinine for GFR 1.02 mg/dL 0.55-1 .30 mg/dL [facility]: 830 [facility] Normal Glomerular Filtration Rate 59.9 >5 1 [facility]: 830 [facility] Normal Sodium Level 140 mEq/L 136-145 mEq/L [facility]: 830 [facility] High Potassium Serum 5.4 mEq/L 3.5-5.1 mE q/L [facility]: 830 [facility] High Chloride Level 108 mEq/L 98-107 mEq/ L [facility]: 830 [facility] Normal Carbon Dioxide Level 29 mEq/L 21-32 mEq/L [facility]: 830 [facility] Low Anion Gap 3 mEq/L 8-16 mEq/L [facility]: 830 [facility] Normal Calcium Level 8.8 mg/dL 8.5-10.1 mg/ dL [facility]: 830 [facility] Normal AST/SGOT 20 U/L 7-37 U/L [facility]: 830 [facility] Normal ALT/SGPT 22 U/L 12-78 U/L [facility]: 830 [facility] Normal Alkaline Phosphatase 78 U/L 45-117 U /L [facility]: 830 [facility] Normal Bilirubin,total 0.3 mg/dL 0.2-1.0 mg /dL [facility]: 830 [facility] Normal Total Protein 6.8 gm/dL 6.4-8.2 gm/d L [facility]: 830 [facility] Normal Albumin 3.7 gm/dL 3.2-5.2 gm/dL Tamika l [facility]: 830 [facility] Normal Albumin/globulin Ratio 1.2 1.2-2. 2 [facility]: 830 [facility] 03/18/2020 Lipid Panel, Blood High Triglycerides Lev el 153 mg/dL <150 mg/dL [facility]: 83 0 [facility] Normal Cholesterol Level 193 mg/dL <200 mg/ dL [facility]: 830 [facility] Normal HDL Cholesterol 91 mg/dL >40 mg/dL [facility]: 830 [facility] Normal LDL Cholesterol 71 mg/dL <100 mg/dL Final [facility]: [address] [place] [address] Normal Non-hdl-c 102 mg/dL Final [facility]: 830 [facility] Normal Cholesterol Risk Ratio 2.120 <5 [facility]: [address] [place] [address] 03/18/2020 TSH + Free T4, Serum Normal Thyroid Stimulating Hormone 2.710 uIU/mL 0.358-3.740 uIU/mL [facility] nter: [address] [place] [address] Normal Free T4 0.90 NG/dL 0.76-1.46 NG/dL [facility]: 830 [facility] 03/18/2020 Vitamin D, 25-Hydroxy, Total, Serum Low Total 25(Oh) Vitamin D 25.2 NG/mL 30.0-100.0 NG/mL [facility] nter: 0 [facility] 03/18/2020 HbA1C (Hemoglobin a1C), Blood Normal Hemogl obin a1C 4.9 % [facility]: [address] [place] [address] Normal Estimated Average Glucose 94 mg/dL 6 0-110 mg/dL [facility]: 0 [facility] Past Encounters 03/04/2021 Patient New to Provider; Hypertensive Disorder; Neck Pain; Administration of Influenza Vaccine; Nicotine Dependence MATT Rae: [address] [place] [phone], Ph. 03/01/2021 DEANDRE RaoBC: [address] [place] [phone], Ph. 02/01/2021 Hypertensive Disorder; Intermittent Palpitations; Mixed Anxiety and Depressive Disorder; Nicotine Dependence with Current Use DEANDRE RaoBC: [address] [place] [phone], Ph. 10/19/2020 Asthma; Chronic Low Back Pain; Chronic Obstructive Lung Disease; Microscopic Hematuria; Patient Asked to Attend [facility]: [address] [place] [phone], Ph. 08/04/2020 Low Back Pain; Essential Hypertension [facility]: [address] [place] [phone], Ph. 03/22/2020 Requires Influenza Virus Vaccination; Hypertensive Disorder; Low Back Pain [facility]: [address] [place] [phone], Ph. 03/18/2020 Influenza Vaccine Needed [facility]: [address] [place] [phone], Ph. Social History Tobacco Smoking Status Heavy [...] Surgeries None recorded. Imaging None recorded. Vitals 03/04/2021 11:00AM ESTABLISHED [id number] Height Weight BMI Blood Pressure 60 in 122 lbs 4 oz 23.9 kg/m2 123/88 mm[Hg] 02/01/2021 02:40PM ESTABLISHED [id number] Height Weight BMI Blood Pressure 60 in 122 lbs 8 oz 23.9 kg/m2 137/95 mm[Hg] 10/19/2020 05:40PM TELEHEALTH 20 Height 60 in 08/04/2020 01:40PM ESTABLISHED [id number] Height Weight BMI Blood Pressure 60 in 133 lbs 8 oz 26.1 kg/m2 134/99 mm[Hg] 03/22/2020 01:20PM ESTABLISHED [id number] Height Weight BMI Blood Pressure 60 in [...]
--- OUTSIDE RECORDS SUMMARY | 2021-05-03 19:27 | CCD ---
Author Author [facility] Organization [facility] Address Unknown Phone Unavailable Care Team Providers Care Pss Delivery Professional Name Role Phone Tasia Douglas MD Unavailable Unavailable BolTasia dunbar MD Unavailable Unavailable BolTasia dunbar MD Unavailable Unavailable BolTasia dunbar MD Unavailable Unavailable BolTasia dunbar MD Unavailable Unavailable BolTasia dunbar MD Unavailable Unavailable BolTasia dunbar MD Unavailable Unavailable BolTasia dunbar MD Unavailable Unavailable BolTasia dunbar MD Unavailable Unavailable BolTasia dunbar MD Unavailable Unavailable BolTasia dunbar MD Unavailable Unavailable BolTasia dunbar MD Unavailable Unavailable BolTasia dunbar MD Unavailable Unavailable BolTasia dunbar MD Unavailable Unavailable BolTasia dunbar MD Unavailable Unavailable BolTasia dunbar MD Unavailable Unavailable BolTasia dunbar MD Unavailable Unavailable BolTasia dunbar MD Unavailable Unavailable BolTasia dunbar MD Unavailable Unavailable BolTasia dunbar MD Unavailable Unavailable BolTasia dunbar MD Unavailable Unavailable Tasia Douglas MD Unavailable Unavailable Tasia Douglas MD Unavailable Unavailable BolTasia dunbar MD Unavailable Unavailable BolTasia dunbar MD Unavailable Unavailable Tasia Douglas MD Unavailable Unavailable Tasia Douglas MD Unavailable Unavailable Tasia Douglas MD Unavailable Unavailable Tasia Douglas MD Unavailable Unavailable Tasia Douglas MD Unavailable Unavailable BolTasia dunbar MD Unavailable Unavailable Tasia Douglas MD Unavailable Unavailable Tasia Douglas MD Unavailable Unavailable Tasia Douglas MD Unavailable Unavailable BolTasia dunbar MD Unavailable Unavailable Tasia Douglas MD Unavailable Unavailable BolTasia dunbar MD Unavailable Unavailable Tasia Douglas MD Unavailable Unavailable Tasia Douglas MD Unavailable Unavailable BolTasia dunbar MD Unavailable Unavailable Tasia Douglas MD Unavailable Unavailable BolTasia dunbar MD Unavailable Unavailable Tasia Douglas MD Unavailable Unavailable BolTasia dunbar MD Unavailable Unavailable BolTasia dunbar MD Unavailable Unavailable BolTasia dunbar MD Unavailable Unavailable BolTasia dunbar MD Unavailable Unavailable BolTasia dunbar MD Unavailable Unavailable BolTasia dunbar MD Unavailable Unavailable Noragong, Majo Unavailable Unavailable Noragong, Majo Unavailable Unavailable Noragong, Majo Unavailable Unavailable Noragong, Majo Unavailable Unavailable Noragong, Majo Unavailable Unavailable Noragong, Majo Unavailable Unavailable Noragong, Majo Unavailable Unavailable Gianni, A Kimi TRUSS DRIVER HELPER Unavailable Unavailable Jasper, A Kimi TRUSS DRIVER HELPER Unavailable Unavailable Jasper, A Kimi TRUSS DRIVER HELPER Unavailable Unavailable Jasper, A Kimi TRUSS DRIVER HELPER Unavailable Unavailable Jasper, A Kimi TRUSS DRIVER HELPER Unavailable Unavailable Jasper, A Kimi TRUSS DRIVER HELPER Unavailable Unavailable Jasper, A Kimi TRUSS DRIVER HELPER Unavailable Unavailable Jasper, A Kimi TRUSS DRIVER HELPER Unavailable Unavailable Jasper, A Kimi TRUSS DRIVER HELPER Unavailable Unavailable Jasper, A Kimi TRUSS DRIVER HELPER Unavailable Unavailable Jasper, A Kimi TRUSS DRIVER HELPER Unavailable Unavailable Jasper, A Kimi TRUSS DRIVER HELPER Unavailable Unavailable Jasper, A Kimi TRUSS DRIVER HELPER Unavailable Unavailable Jasper, A Kimi TRUSS DRIVER HELPER Unavailable Unavailable Jasper, A Kimi TRUSS DRIVER HELPER Unavailable Unavailable Jasper, A Kimi TRUSS DRIVER HELPER Unavailable Unavailable Jasper, A Kimi TRUSS DRIVER HELPER Unavailable Unavailable Jasper, A Kimi TRUSS DRIVER HELPER Unavailable Unavailable Jasper, A Kimi TRUSS DRIVER HELPER Unavailable Unavailable Jasper, A Kimi TRUSS DRIVER HELPER Unavailable Unavailable Jasper, A Kimi TRUSS DRIVER HELPER Unavailable Unavailable Jasper, A Kimi TRUSS DRIVER HELPER Unavailable Unavailable Jasper, A Kimi TRUSS DRIVER HELPER Unavailable Unavailable Jasper, A Kimi TRUSS DRIVER HELPER Unavailable Unavailable Jasper, A Kimi TRUSS DRIVER HELPER Unavailable Unavailable Jasper, A Kimi TRUSS DRIVER HELPER Unavailable Unavailable Jasper, A Kimi TRUSS DRIVER HELPER Unavailable Unavailable Jasper, A Kimi TRUSS DRIVER HELPER Unavailable Unavailable Jasper, A Kimi TRUSS DRIVER HELPER Unavailable Unavailable Jasper, A Kimi TRUSS DRIVER HELPER Unavailable Unavailable Jasper, A Kimi TRUSS DRIVER HELPER Unavailable Unavailable Yobany, Ana Unavailable Unavailable KIRSTEN, BASIM JIMBO TRUSS DRIVER HELPER-C Unavailable Unavailable KIRSTEN, BASIM JIMBO TRUSS DRIVER HELPER-C Unavailable Unavailable KIRSTEN, BASIM JIMBO TRUSS DRIVER HELPER-C Unavailable Unavailable KIRSTEN, BASIM JIMBO TRUSS DRIVER HELPER-C Unavailable Unavailable KIRSTEN, BASIM JIMBO TRUSS DRIVER HELPER-C Unavailable Unavailable KIRSTEN, BASIM JIMBO TRUSS DRIVER HELPER-C Unavailable Unavailable KIRSTEN, BASIM JIMBO TRUSS DRIVER HELPER-C Unavailable Unavailable KIRSTEN, BASIM JIMBO TRUSS DRIVER HELPER-C Unavailable Unavailable KIRSTEN, BASIM JIMBO TRUSS DRIVER HELPER-C Unavailable Unavailable KIRSTEN, BASIM JIMBO TRUSS DRIVER HELPER-C Unavailable Unavailable KIRSTEN, BASIM JIMBO TRUSS DRIVER HELPER-C Unavailable Unavailable KIRSTEN, BASIM JIMBO TRUSS DRIVER HELPER-C Unavailable Unavailable KIRSTEN, BASIM JIMBO TRUSS DRIVER HELPER-C Unavailable Unavailable KIRSTEN, BASIM JIMBO TRUSS DRIVER HELPER-C Unavailable Unavailable KIRSTEN, BASIM JIMBO TRUSS DRIVER HELPER-C Unavailable Unavailable KIRSTEN, BASIM JIMBO TRUSS DRIVER HELPER-C Unavailable Unavailable KIRSTEN, BASIM JIMBO TRUSS DRIVER HELPER-C Unavailable Unavailable Jumalon, M Brianna TRUSS DRIVER HELPER Unavailable Unavailable Jumalon, M Brianna TRUSS DRIVER HELPER Unavailable Unavailable Jumalon, M Brianna TRUSS DRIVER HELPER Unavailable Unavailable Jumalon, M Brianna TRUSS DRIVER HELPER Unavailable Unavailable Jumalon, M Brianna TRUSS DRIVER HELPER Unavailable Unavailable Jumalon, M Brianna TRUSS DRIVER HELPER Unavailable Unavailable Jumalon, M Brianna TRUSS DRIVER HELPER Unavailable Unavailable Jumalon, M Brianna TRUSS DRIVER HELPER Unavailable Unavailable Jumalon, M Brianna TRUSS DRIVER HELPER Unavailable Unavailable Jumalon, M Brianna TRUSS DRIVER HELPER Unavailable Unavailable Jumalon, M Brianna TRUSS DRIVER HELPER Unavailable Unavailable Jumalon, M Brianna TRUSS DRIVER HELPER Unavailable Unavailable Jumalon, M Brianna TRUSS DRIVER HELPER Unavailable Unavailable Jumalon, M Brianna TRUSS DRIVER HELPER Unavailable Unavailable Jumalon, M Brianna TRUSS DRIVER HELPER Unavailable Unavailable Jumalon, M Brianna TRUSS DRIVER HELPER Unavailable Unavailable Jumalon, M Brianna TRUSS DRIVER HELPER Unavailable Unavailable Jumalon, M Brianna TRUSS DRIVER HELPER Unavailable Unavailable Jumalon, M Brianna TRUSS DRIVER HELPER Unavailable Unavailable Jumalon, M Brianna TRUSS DRIVER HELPER Unavailable Unavailable Jumalon, M Brianna TRUSS DRIVER HELPER Unavailable Unavailable Jumalon, M Brianna TRUSS DRIVER HELPER Unavailable Unavailable Jumalon, M Brianna TRUSS DRIVER HELPER Unavailable Unavailable Jumalon, M Brianna TRUSS DRIVER HELPER Unavailable Unavailable Jumalon, M Brianna TRUSS DRIVER HELPER Unavailable Unavailable Jumalon, M Brianna TRUSS DRIVER HELPER Unavailable Unavailable Jumalon, M Brianna TRUSS DRIVER HELPER Unavailable Unavailable Jumalon, M Brianna TRUSS DRIVER HELPER Unavailable Unavailable Jumalon, M Brianna TRUSS DRIVER HELPER Unavailable Unavailable Jumalon, M Brianna TRUSS DRIVER HELPER Unavailable Unavailable HAJA, H VARUN FAC ENGINEER Unavailable Unavailable HAJA, H VARUN FAC ENGINEER Unavailable Unavailable HAJA, H VARUN FAC ENGINEER Unavailable Unavailable HAJA, H VARUN FAC ENGINEER Unavailable Unavailable HAJA, H VARUN FAC ENGINEER Unavailable Unavailable HAJA, H VARUN FAC ENGINEER Unavailable Unavailable HAJA, H VARUN FAC ENGINEER Unavailable Unavailable HAJA, H VARUN FAC ENGINEER Unavailable Unavailable HAJA, H VARUN FAC ENGINEER Unavailable Unavailable Re-disclosure Warning The records that you are about to access may contain information from federally-assisted alcohol or drug abuse programs. If such information is present, then the following federally mandated warning applies: This information has been disclosed to you from records protected by federal confidentiality rules (42 CFR part 2). The federal rules prohibit you from making any further disclosure of this information unless further disclosure is expressly permitted by the written consent of the person to whom it pertains or as otherwise permitted by 42 CFR part 2. A general authorization for the release of medical or other information is NOT sufficient for this purpose. The Federal rules restrict any use of the information to criminally investigate or prosecute any alcohol or drug abuse patient.The records that you are about to access may contain highly sensitive health information, the redisclosure of which is protected by Article 27-F of the [facility] Public Health law. If you continue you may have access to information: Regarding HIV / AIDS; Provided by facilities licensed or operated by the [facility] Office of Mental Health; or Provided by the [facility] Office for People With Developmental Disabilities. If such information is present, then the following [facility] mandated warning applies: This information has been disclosed to you from confidential records which are protected by state law. State law prohibits you from making any further disclosure of this information without the specific written consent of the person to whom it pertains, or as otherwise permitted by law. Any unauthorized further disclosure in violation of state law may result in a fine or fci sentence or both. A general authorization for the release of medical or other information is NOT sufficient authorization for further disc losure. Allergies and Adverse Reactions Type Description Substance Reaction Status Data Source(s ) Propensity to adverse reactions to substance nkda 24 HR Bupropion Hydrochloride 150 MG Extended Release Oral Tablet Active Accu medic ([facility]) Family History Family Member Name Family Member Gender Family Member Status Date o f Status Description Data Source(s) Unknown Unknown Problem MEDENT ([facility], ) Encounters Encounter Providers Location Date Indications Data Source(s ) Brianna Rangel, FAC ENGINEER: [address], [place] [address], Ph. Attender: Brianna GUTIERREZ [place] - [facility] - Main Office 03/30/2021 12:00:00 AM EDT ATHE NA ([facility]) [place] [address] [facility] [address] 03/29/2021 12:00:00 AM EDT eCW1 ([facility]) Outpatient Attender: VARUN SPEAR NP [facility] 03/28/2021 01:30:00 AM EDT - 03/28/2021 01:30:00 AM EDT Accumedic ([facility] [place] [facility]) Attender: VARUN SPEAR NP 03/28/2021 12:00:00 AM EDT Accumedic ([facility]) Attender: Ana Haywood 03/24/2021 12:00:00 AM EDT Accumedic ([facility]) Extended Individual Psychotherapy - 45 min Attender: Ana Haywood [facility] Intermediate 03/23/2021 03:15:00 AM EDT - 03/23/2021 03:15:00 AM EDT Accumedic ([facility]) Antonino Douglas MD: [id number] [facility] [address], [place] [address], Ph. Attender: Antonino MOSHER - [facility] 03/15/2021 12:00:00 AM EDT LASHONDA ([facility]) Antonino Douglas MD: [address], [place] [address], Ph. Attender: Antonino MOSHER - [facility] - Main Office 03/15/2021 12:00:00 AM EDT LASHONDA ([facility]) Outpatient Attender: JIMBO GUTIERREZ-Randolph Diaz/Jeffery/Rogerio/Jess leslie 03/10/2021 12:45:00 PM EDT MEDENT ([facility]) Majo Delgado, TRUSS DRIVER HELPER: [address] [place] [address], Ph. Attender: Majo Delgado [facility] Medical 03/09/2021 12:00:00 AM EDT LASHONDA ([facility]) Unknown [address] [facility] [address] 03/08/2021 12:00:00 AM EDT eCW1 ([facility]) [place] [address] [facility] [address] 03/08/2021 12:00:00 AM EDT eCW1 ([facility]) Extended Individual Psychotherapy - 45 min Attender: Ana Haywood [facility] 03/07/2021 02:00:00 AM EDT - 03/07/2021 02:00:00 AM EDT Accumedic ([facility]) Outpatient [address] [facility] [address] 03/07/2021 12:00:00 AM EDT eCW1 ([facility]) Attender: Ana Haywood 03/07/2021 12:00:00 AM EDT Accumedic ([facility]) BRIDGETTE RaeP: [address] [place] [address], Ph. Attender: Majo Delgado [facility] Medical 03/04/2021 12:00:00 AM EDT LASHONDA ([facility]) Majo Delgado, TRUSS DRIVER HELPER: [address] [place] [address], Ph. Attender: Majo Delgado [facility] Medical 03/04/2021 12:00:00 AM EDT LASHONDA ([facility]) Brianna Rangel, FAC ENGINEER: [address], [place] [address], Ph. Attender: Brianna Rangel [facility] 03/01/2021 12:00:00 AM EDT COLT WREN ([facility]) Brianna Rangel, FAC ENGINEER: [address], [address], [place] [address], Ph. Attender: Brianna Rangel [facility] 03/01/2021 12:00:00 AM EDT COLT WREN ([facility]) Kimi Archer [facility]: [address], [place] [address], Ph. Attender: Kimi Archer [facility] Medical 03/01/2021 12:00:00 AM EDT LASHONDA ([facility]) Kimi Archer [facility]: [address], [place] [address], Ph. Attender: Kimi Archer [facility] Medical 03/01/2021 12:00:00 AM EDT LASHONDA ([facility]) Brianna Rangel, FAC ENGINEER: [address], [place] [address], Ph. Attender: Brianna Rangel [facility] 03/01/2021 12:00:00 AM EDT COLT WREN ([facility]) Outpatient Attender: VARUN SPEAR NP [facility] 02/16/2021 10:00:00 AM EDT - 02/16/2021 10:00:00 AM EDT Accummarta ([facility]) Attender: VARUN SPEAR NP 02/16/2021 12:00:00 AM EDT Accumedic ([facility]) Antonino Douglas MD: [address], [place] [address], Ph. Attender: Antonino Douglas MD [place] - [facility] 02/10/2021 12:00:00 AM EDT LASHONDA ([facility]) Antonino Douglas MD: [address], [address], [place] [address], Ph. Attender: Antonino MOSHER - [facility] 02/10/2021 12:00:00 AM EDT LASHONDA ([facility]) Antonino Douglas MD: [address], [address], [place] [address], Ph. Attender: Antonino MOSHER - [facility] 02/10/2021 12:00:00 AM EDT LASHONDA ([facility]) Antonino Douglas MD: [address], [address], [place] [address], Ph. Attender: Antonino MOSHER - [facility] 02/10/2021 12:00:00 AM EDT LASHONDA ([facility]) Antonino Douglas MD: [address], [address], [place] [address], Ph. [phone] Attender: Antonino MOSHER - [facility] 02/07/2021 12:00:00 AM EDT LASHONDA ([facility]) Antonino Douglas MD: [address], [address], [place] [address], Ph. [phone] Attender: Antonino MOSHER - [facility] 02/07/2021 12:00:00 AM EDT LASHONDA ([facility]) Antonino Douglas MD: [address], [address], [place] [address], Ph. [phone] Attender: Antonino Douglas [place] - [facility] 02/07/2021 12:00:00 AM EDT LASHONDA ([facility]) Antonino Douglas MD: [address], [address], [place] [address], Ph. [phone] Attender: Antonino Douglas MD [place] - [facility] 02/07/2021 12:00:00 AM EDT LASHONDA ([facility]) Antonino Douglas MD: [address], [address], [place] [address], Ph. [phone] Attender: Antonino Douglas [place] - [facility] 02/07/2021 12:00:00 AM EDT LASHONDA ([facility]) Extended Individual Psychotherapy - 45 min Attender: Ana Haywood [facility] 02/04/2021 02:00:00 AM EDT - 02/04/2021 02:00:00 AM EDT [facility]umedic [facility] Attender: Ana Haywood 02/04/2021 12:00:00 AM EDT Accumedic ([facility]) Antonino Douglas MD: [address], [address], [place] [address], Ph. [phone] Attender: Antonino Douglas [place] - [facility] 02/02/2021 12:00:00 AM EDT LASHONDA ([facility]) Antonino Douglas MD: [address], [address], [place] [address], Ph. [phone] Attender: Antonino MOSHER - [facility] 02/02/2021 12:00:00 AM EDT LASHONDA ([facility]) Antonino Douglas MD: [address], [place] [address], Ph. [phone] Attender: Antonino Douglas [place] - [facility] 02/02/2021 12:00:00 AM EDT LASHONDA ([facility]) Antonino Douglas MD: [address], [address], [place] [address], Ph. [phone] Attender: Antonino MOSHER - [facility] 02/02/2021 12:00:00 AM EDT LASHONDA ([facility]) Antonino Douglas MD: [address], [address], [place] [address], Ph. [phone] Attender: Antonino Douglas [place] - [facility] 02/02/2021 12:00:00 AM EDT LASHONDA ([facility]) Antonino Douglas MD: [address], [address], [place] [address], Ph. [phone] Attender: Antonino Douglas [place] - [facility] 02/02/2021 12:00:00 AM EDT LASHONDA ([facility]) DEANDRE Rao: [address], [place] [address], Ph. Attender: Kimi GUTIERREZ [facility] Medical 02/01/2021 12:00:00 AM EDT LASHONDA ([facility]) DEANDRE Rao: [address], [place] [address], Ph. [facility]: [facility] 02/01/2021 12:00:00 AM EDT LASHONDA ([facility]) BRIDGETTE RaoP-: [address], [place] [address], Ph. Attender: Kimi GUTIERREZ [place] [facility] Medical 02/01/2021 12:00:00 AM EDT LASHONDA ([facility]) Antonino Douglas MD: [address], [address], [place] [address], Ph. [phone] Attender: Antonino Douglas [place] - [facility] 01/21/2021 12:00:00 AM EDT LASHONDA ([facility]) Antonino Douglas MD: [address], [address], [place] [address], Ph. [phone] Attender: Antonino Douglas [place] - [facility] 01/21/2021 12:00:00 AM EDT LASHONDA ([facility]) Antonino Douglas MD: [address], [address], [place] [address], Ph. [phone] Attender: Antonino Douglas [place] - [facility] 01/21/2021 12:00:00 AM EDT LASHONDA ([facility]) Antonino Douglas MD: [address], [address], [place] [address], Ph. [phone] Attender: Antonino Douglas [place] - [facility] 01/21/2021 12:00:00 AM EDT LASHONDA ([facility]) Antonino Douglas MD: [address], [address], [place] [address], Ph. [phone] Attender: Antonino Douglas [place] - [facility] 01/21/2021 12:00:00 AM EDT LASHONDA ([facility]) Antonino Douglas MD: [address], [address], [place] [address], Ph. [phone] Attender: Antonino [place] - [facility] 01/21/2021 12:00:00 AM EDT LASHONDA ([facility]) Antonino Douglas MD: [address], [address], [place] [address], Ph. [phone] Attender: Antonino Douglas [place] - [facility] 01/21/2021 12:00:00 AM EDT LASHONDA ([facility]) Outpatient Attender: JIMBO CURTIS TRUSS DRIVER HELPER-Randolph Diaz/Jeffery/Rogerio/Jess leslie 01/20/2021 01:45:00 PM EDT MEDWILLIAM ([facility] Brianna Rangel, FAC ENGINEER: [address], [place] [address], Ph. Attender: Brianna Rangel [facility] - [facility] 01/17/2021 12:00:00 AM EDT ATHE NA ([facility]) Brianna Rangel, FAC ENGINEER: [address], [place] [address], Ph. Attender: Brianna Rangel [facility] - [facility] 01/17/2021 12:00:00 AM EDT ATHE NA ([facility]) Brianna Rangel, FAC ENGINEER: [address], [place] [address], Ph. Attender: Brianna Rangel [facility] - [facility] 01/17/2021 12:00:00 AM EDT ATHE NA ([facility]) Brianna Rangel, FAC ENGINEER: [address], [place] [address], Ph. Attender: Brianna Rangel [facility] - [facility] 01/17/2021 12:00:00 AM EDT ATHE NA ([facility]) Brianna Rangel, FAC ENGINEER: [address], [place] [address], Ph. Attender: Brianna Rangel [facility] - [facility] 01/17/2021 12:00:00 AM EDT ATHE NA ([facility]) Brianna Rangel, FAC ENGINEER: [address], [place] [address], Ph. Attender: Brianna Rangel [facility] 01/17/2021 12:00:00 AM EDT ATHE NA ([facility]) Brianna Rangel, FAC ENGINEER: [address], [place] [address], Ph. Attender: Brianna Rangel [facility] 01/17/2021 12:00:00 AM EDT ATHE NA ([facility]) Brianna Rangel, FAC ENGINEER: [address], [place] [address], Ph. Attender: Brianna Rangel [facility] 01/17/2021 12:00:00 AM EDT ATHE NA ([facility]) Attender: Ana Haywood 01/06/2021 12:00:00 AM EDT [facility] ([facility]) Extended Individual Psychotherapy - 45 min Attender: Ana Haywood [facility] 01/05/2021 03:00:00 AM EDT - 01/05/2021 03:00:00 AM EDT [facility] ([facility]) Antonino Douglas MD: [id number], [address], [place] [address], Ph. Attender: Antonino MOSHER - [facility] 12/20/2020 12:00:00 AM EDT [facility] ([facility]) Antonino Douglas MD: [id number], [address], [place] [address], Ph. Attender: Antonino MOSHER - [facility] 12/20/2020 12:00:00 AM EDT [facility] ([facility]) Antonino Douglas MD: [id number], [place] [address], Ph. Attender: Antonino MOSHER - [facility] 12/20/2020 12:00:00 AM EDT [facility] ([facility]) Antonino Douglas MD: [id number], [place] [address], Ph. Attender: Antonino MOSHER - [facility] 12/20/2020 12:00:00 AM EDT [facility] ([facility]) Antonino Douglas MD: [id number], [address], [place] [address], Ph. Attender: Antonino MOSHER - [facility] 12/20/2020 12:00:00 AM EDT [facility] ([facility]) Antonino Douglas MD: [id number], [address], [place] [address], Ph. Attender: Antonino MOSHER - [facility] 12/20/2020 12:00:00 AM EDT L[facility]DA ([facility]) Antonino Douglas MD: [id number], [place], [place] [address], Ph. Attender: Antonino MOSHER - [facility] 12/20/2020 12:00:00 AM EDT [facility]DA ([facility]) Antonino Douglas MD: [id number], [place] [address], Ph. Attender: Antonino Douglas MD [place] - [facility] 12/20/2020 12:00:00 AM EDT L[facility]DA ([facility]) Antonino Douglas MD: [id number], [facility] [place] [address], Ph. Attender: Antonino Douglas MD [place] - [facility] 12/20/2020 12:00:00 AM EDT [facility]DA ([facility]) Outpatient Attender: VARUN SPEAR NP [facility] Tristin skaggs 12/09/2020 02:00:00 AM EDT - 12/09/2020 02:00:00 AM EDT [facility] ([facility]) Attender: VARUN SPEAR NP 12/09/2020 12:00:00 AM EDT [facility] ([facility]) Extended Individual Psychotherapy - 45 min Attender: Ana Haywood [facility] Janell 12/08/2020 03:00:00 AM EDT - 12/08/2020 03:00:00 AM EDT [facility] ([facility]) Attender: Ana Haywood 12/08/2020 12:00:00 AM EDT [facility] ([facility]) Outpatient Attender: JIMBO Diaz/Jeffery/Rogerio/Jess leslie 12/07/2020 01:15:00 PM EDT MEDENT ([facility]) Extended Individual Psychotherapy - 45 min Attender: Ana Haywood [facility] 11/16/2020 11:00:00 AM EDT - 11/16/2020 11:00:00 AM EDT [facility] ([facility]) Attender: Ana Haywood 11/16/2020 12:00:00 AM EDT [facility] ([facility]) [place] [address] [facility] [address] 11/15/2020 12:00:00 AM EDT eCW1 ([facility]) Unknown [address] [facility] [address] 11/11/2020 12:00:00 AM EDT eCW1 ([facility]) Outpatient [address] [facility] [address] 11/10/2020 12:00:00 AM EDT eCW1 ([facility]) Outpatient Attender: VARUN SPEAR NP [facility] 10/28/2020 11:30:00 AM EDT - 10/28/2020 11:30:00 AM EDT [facility] ([facility] [place] [facility]) Attender: VARUN SPEAR NP 10/28/2020 12:00:00 AM EDT [facility] ([facility]) MATT Rao-BC: [address] [place] [address], Ph. Attender: Kimi GUTIERREZ [facility] Medical 10/19/2020 12:00:00 AM EDT [facility] ([facility]) MATT Rao-BC: [address] [place] [address], Ph. Attender: Kimi GUTIERREZ [facility] Medical 10/19/2020 12:00:00 AM EDT [facility] ([facility]) Kimi Archer [facility]: [address], [place] [address], Ph. Attender: Kimi Archer [facility] Medical 10/19/2020 12:00:00 AM EDT [facility] ([facility]) Kimi Archer [facility]: [address], [place] [address], Ph. Attender: Kimi Archer [facility] Medical 10/19/2020 12:00:00 AM EDT [place] ([facility]) Kimi Archer [facility]: [address], [place] [address], Ph. Attender: Kimi Archer [facility] Medical 10/19/2020 12:00:00 AM EDT [facility] ([facility]) Outpatient Attender: VARUN SPEAR NP [facility] 10/14/2020 02:00:00 AM EDT - 10/14/2020 02:00:00 AM EDT [facility] ([facility] [place] [facility]) Attender: VARUN SPEAR NP 10/14/2020 12:00:00 AM EDT [facility] ([facility]) Antonino Douglas MD: [id number], [place] [address], Ph. Attender: Antonino MOSHER - [facility] Office 09/20/2020 12:00:00 AM EDT LASH[facility]DA ([facility]) Antonino Douglas MD: [id number], [place] [address], Ph. Attender: Antonino MOSHER - [facility] 09/20/2020 12:00:00 AM EDT LASH[facility]DA ([facility]) Antonino Douglas MD: [address], [address], [place] [address], Ph. Attender: Antonino Douglas MD [place] - [facility] 09/20/2020 12:00:00 AM EDT [facility] ([facility]) Antonino Douglas MD: [address], [address], [place] [address], Ph. Attender: Antonino Douglas MD [place] - [facility] 09/20/2020 12:00:00 AM EDT [facility] ([facility]) Antonino Douglas MD: [address], [address], [place] [address], Ph. Attender: Antonino MOSHER - [facility] 09/20/2020 12:00:00 AM EDT [facility] ([facility]) Antonino Douglas MD: [id number], [address], [place] [address], Ph. Attender: Antonino MOSHER - [facility] 09/20/2020 12:00:00 AM EDT [facility]DA ([facility]) Antonino Douglas MD: [address], [address], [place] [address], Ph. Attender: Antonino MOSHER - [facility] 09/20/2020 12:00:00 AM EDT [facility] ([facility]) Antonino Douglas MD: [address], [address], [place] [address], Ph. Attender: Antonino MOSHER - [facility] 09/20/2020 12:00:00 AM EDT LASH[facility]DA ([facility]) Antonino Douglas MD: [id number] [facility] [address], [place] [address], Ph. Attender: Antonino Douglas MD [place] - [facility] - Main Office 09/20/2020 12:00:00 AM EDT [facility] ([facility]) Antonino Douglas MD: [id number] [facility] [address], [place] [address], Ph. Attender: Antonino Douglas MD [place] - [facility] 09/20/2020 12:00:00 AM EDT [facility] ([facility]) Attender: Ana Haywood 09/07/2020 12:00:00 AM EDT [facility] ([facility]) Extended Individual Psychotherapy - 45 min Attender: Ana Haywood [facility] 09/06/2020 03:00:00 AM EDT - 09/06/2020 03:00:00 AM EDT [facility] ([facility]) Outpatient Attender: VARUN SPEAR NP [facility] Tristin sharifa 09/01/2020 02:00:00 AM EDT - 09/01/2020 02:00:00 AM EDT [facility] ([facility] [place] [facility]) Attender: VARUN SPEAR NP 09/01/2020 12:00:00 AM EDT [facility] ([facility]) [id number]"Psychotherapy Attender: Ana Haywood [facility] 08/17/2020 01:00:00 AM EDT - 08/17/2020 01:00:00 AM EDT [facility] ([facility]) Attender: Ana Haywood 08/17/2020 12:00:00 AM EDT [facility] ([facility]) Kimi Archer, [employer]-BC: [address] [place] [address], Ph. Attender: Kimi Archer [facility] Medical 08/04/2020 12:00:00 AM EST [facility] ([facility]) Kimi Archer [facility]: [address], [place] [address], Ph. Attender: Kimi Archer [facility] Medical 08/04/2020 12:00:00 AM EST [facility] ([facility]) Kimi Archer [facility]: [address], [place] [address], Ph. Attender: Kimi Archer [facility] Medical 08/04/2020 12:00:00 AM EST [facility] ([facility]) [facility]: [address], [place] [address], Ph. Attender: Kimi Archer [facility] Medical 08/04/2020 12:00:00 AM EST [facility] ([facility]) Kimi Archer [facility]: [address], [place] [address], Ph. Attender: Kimi Archer [facility] Medical 08/04/2020 12:00:00 AM EST [facility] ([facility]) Kimi Archer [facility]: [address], [place] [address], Ph. Attender: Kimi Archer [facility] Medical 08/04/2020 12:00:00 AM EST [facility] ([facility]) [id number]"Psychotherapy Attender: Ana Haywood [facility] 08/02/2020 01:00:00 AM EST - 08/02/2020 01:00:00 AM EST [facility] ([facility]) Attender: Ana Haywood 08/02/2020 12:00:00 AM EST [facility] ([facility]) Extended Individual Psychotherapy - 45 min Attender: Ana Haywood [facility] 07/14/2020 11:45:00 AM EST - 07/14/2020 11:45:00 AM EST [facility] ([facility]) Attender: Ana Haywood 07/14/2020 12:00:00 AM EST [facility] ([facility]) Extended Individual Psychotherapy - 45 min Attender: Ana Yobany [facility] 06/28/2020 01:00:00 AM EST - 06/28/2020 01:00:00 AM EST [facility] ([facility]) Attender: Ana Haywood 06/28/2020 12:00:00 AM EST [facility] ([facility]) Attender: VARUN SPEAR NP 06/28/2020 12:00:00 AM EST [facility] ([facility]) Extended Individual Psychotherapy - 45 min Attender: Ana Yobany [facility] 06/09/2020 01:00:00 AM EST - 06/09/2020 01:00:00 AM EST [facility] ([facility]) Attender: Ana Haywood 06/09/2020 12:00:00 AM EST [facility] ([facility]) Outpatient Attender: VARUN SPEAR NP [facility] Tristin sharifa 05/24/2020 03:00:00 AM EST - 05/24/2020 03:00:00 AM EST [facility] ([facility]) Extended Individual Psychotherapy - 45 min Attender: Ana Haywood [facility] 05/17/2020 01:00:00 AM EST - 05/17/2020 01:00:00 AM EST [facility] ([facility]) Attender: Ana Haywood 05/17/2020 12:00:00 AM EST [facility] ([facility]) Extended Individual Psychotherapy - 45 min Attender: Ana Haywood [facility] 04/30/2020 02:00:00 AM EST - 04/30/2020 02:00:00 AM EST [facility] ([facility]) Attender: Ana Haywood 04/30/2020 12:00:00 AM EST [facility] ([facility]) Outpatient Attender: VARUN SPEAR NP [facility] Tristin skaggs 04/07/2020 05:00:00 AM EST - 04/07/2020 05:00:00 AM EST [facility] ([facility]) Attender: VARUN SPEAR NP 04/07/2020 12:00:00 AM EST [facility] ([facility]) Attender: Ana Yobany [facility] 01:00:00 AM EST - 03/29/2020 01:00:00 AM EST [facility] ([facility]) Attender: Ana Haywood 03/29/2020 12:00:00 AM EST [facility] ([facility]) DEANDRE RaoBC: [address], [place] [address], Ph. Attender: Kimi Archer [facility] Medical 03/22/2020 12:00:00 AM EDT [place] ([facility]) DEANDRE RaoBC: [address], [place] [address], Ph. Attender: Kimi Archer [facility] Medical 03/22/2020 12:00:00 AM EDT [facility] ([facility]) DEANA Rao: [address], [place] [address], Ph. Attender: Kimi Archer [facility] Medical 03/22/2020 12:00:00 AM EDT [facility]) DEANDRE RaoBC: [address], [place] [address], Ph. Attender: Kimi Archer [facility] Medical 03/22/2020 12:00:00 AM EDT [place] ([facility]) Kimi Archer [facility]: [address], [place] [address], Ph. Attender: Kimi Archer [facility] Medical 03/22/2020 12:00:00 AM EDT [facility] ([facility]) Kimi Archer [facility]: [address], [place] [address], Ph. Attender: Kimi Archer [facility] Medical 03/22/2020 12:00:00 AM EDT [place] ([facility]) Kimi Archer [facility]: [address], [place] [address], Ph. Attender: Kimi Archer [facility] Medical 03/22/2020 12:00:00 AM EDT [place] ([facility]) Kimi Archer [facility]: [address], [place] [address], Ph. Attender: Kimi Archer [facility] Medical 03/22/2020 12:00:00 AM EDT [place] ([facility]) Kimi Archer [facility]: [address], [place] [address], Ph. Attender: Kimi Archer [facility] Medical 03/18/2020 12:00:00 AM EDT [place] ([facility]) Kimi Archer [facility]: [address], [place] [address], Ph. Attender: Kimi Archer [facility] Medical 03/18/2020 12:00:00 AM EDT [place] ([facility]) Kimi Archer [facility]: [address], [place] [address], Ph. Attender: Kimi Archer [facility] Medical 03/18/2020 12:00:00 AM EDT [place] ([facility]) Kimi Archer [facility]: [address], [place] [address], Ph. Attender: Kimi Archer [facility] Medical 03/18/2020 12:00:00 AM EDT [place] ([facility]) Kimi Archer [facility]: [address], [place] [address], Ph. Attender: Kimi Archer [facility] Medical 03/18/2020 12:00:00 AM EDT [place] ([facility]) Kimi Archer [facility]: [address], [place] [address], Ph. Attender: Kimi Archer [facility] Medical 03/18/2020 12:00:00 AM EDT [place] ([facility]) Kimi Archer [facility]: [address], [place] [address], Ph. Attender: Kimi Archer [facility] Medical 03/18/2020 12:00:00 AM EDT [place] ([facility]) Kimi Archer [facility]: [address], [place] [address], Ph. Attender: Kimi GUTIERREZ [facility] Medical 03/18/2020 12:00:00 AM EDT [facility] ([facility]) Extended Individual Psychotherapy - 45 min Attender: nAa Caseus [facility] Intermediate 03/15/2020 01:00:00 AM EDT - 03/15/2020 01:00:00 AM EDT [facility] ([facility]) Attender: Ana [facility] 03/15/2020 12:00:00 AM EDT [facility] ([facility]) Outpatient Attender: VARUN SPEAR NP [facility] Tristin sharifa 03/08/2020 02:00:00 AM EDT - 03/08/2020 02:00:00 AM EDT [facility] ([facility]) Attender: VARUN SPEAR NP 03/08/2020 12:00:00 AM EDT [facility] ([facility]) Functional Status Immunizations Vaccine Date Status Description Data Source(s) New in 2011. IIV4 03/04/2021 11:23:00 AM EDT completed 03/04/20 21 [place] ([facility]) New in 2011. IIV4 03/04/2021 11:23:00 AM EDT completed 03/04/20 21 [place] ([facility]) COVID-19 VACCINE Pfizer 12/01/2020 12:00:00 AM EDT completed [place] Vaccine Series Complete: YESThis Data wa s Submitted to [facility] Via [facility]. COVID-19 VACCINE Pfizer 11/08/2020 12:00:00 AM EDT completed [place] Vaccine Series Complete: NOThis Data was Submitted to [facility] Via [facility]. New in 2011. IIV4 03/25/2020 03:18:00 PM EDT completed 0.5 mL [facility] ([facility]) New in 2011. IIV4 03/25/2020 03:18:00 PM EDT completed 0.5 mL [facility] ([facility] er) New in 2011. IIV4 03/25/2020 03:18:00 PM EDT completed .5 mL [facility] ([facility]) New in 2011. IIV4 03/25/2020 03:18:00 PM EDT completed .5 mL [facility] ([facility]) New in 2011. IIV4 03/25/2020 03:18:00 PM EDT completed 0.5 mL [facility] ([facility]) New in 2011. IIV4 03/25/2020 03:18:00 PM EDT completed .5 mL [facility] ([facility]) New in 2011. IIV4 03/25/2020 03:18:00 PM EDT completed .5 mL [facility] ([facility]) New in 2011. IIV4 03/22/2020 02:30:00 PM EDT completed .5 mL [facility] ([facility]) New in 2011. IIV4 03/22/2020 02:30:00 PM EDT completed .5 mL [facility] ([facility]) New in 2011. IIV4 03/22/2020 02:30:00 PM EDT completed .5 mL [facility] ([facility]) New in 2011. IIV4 03/22/2020 02:30:00 PM EDT completed .5 mL [facility] ([facility]) New in 2011. IIV4 03/22/2020 02:30:00 PM EDT completed .5 mL [place] ([facility]) New in 2011. IIV4 03/22/2020 02:30:00 PM EDT completed .5 mL [place] ([facility]) New in 2011. IIV4 03/22/2020 02:30:00 PM EDT completed .5 mL [facility] ([facility]) New in 2011. IIV4 03/22/2020 02:30:00 PM EDT completed .5 mL [facility] ([facility]) Medications Medication Brand Name Start Date Product Form Dose Route Admi nistrative Instructions Pharmacy Instructions Status Indications Reaction Description Data Source(s) Airduo Respiclick [employer]lick 11314 03/10/2021 12:00: 00 AM EDT RESPIRATORY active MEDENT ([facility], ) Fluconazole 150 MG Oral Tablet [Diflucan] Diflucan 150 MG Di flucan 150 MG 03/08/2021 12:00:00 AM EDT 1.0 {tablet} active Diflucan 150 MG eCW1 ([facility]) Fluconazole 150 MG Oral Tablet [Diflucan] Diflucan 150 MG Di flucan 150 MG 03/08/2021 12:00:00 AM EDT 1.0 {tablet} active Diflucan 150 MG eCW1 ([facility]) Fluconazole 150 MG Oral Tablet [Diflucan] Diflucan 150 MG Di flucan 150 MG 03/08/2021 12:00:00 AM EDT 1.0 {tablet} active Diflucan 150 MG eCW1 ([facility]) Fluconazole 150 MG Oral Tablet [Diflucan] Diflucan 150 MG Di flucan 150 MG 03/08/2021 12:00:00 AM EDT 1.0 {tablet} active Diflucan 150 MG eCW1 ([facility]) buspirone hydrochloride 10 MG Oral Tablet buspirone 2020 12:00:00 AM EDT 10 mg by mouth completed <td ID="Medic ationRxNorm_4">812366</td><td ID="MedicationMedication_4">buspirone</td><td ID="MedicationRoute_4">by mouth</td><td ID="MedicationRouteConcept_4">T90225</td><td ID="MedicationStartDate_4">02/16/2021</td><td ID="MedicationStopDate_4">05/17/2021</td><td ID="MedicationDosageFrequency_4">twice a day</td><td ID="MedicationDuration_4">30</td><td ID="MedicationFormulaStrength_4">10 mg</td><td ID="MedicationDosageForm_4">tablet</td><td ID="MedicationDosageFormCode_4"></td><td ID="MedicationDosageDescription_4"></td><td ID="MedicationMedicationId_4">[id number]</td><td ID="MedicationAccount_4">[id number]</td><td ID="MedicationNpid_4">[id number]</td><td ID="MedicationAuthorFirstName_4">Varun</td><td ID="MedicationAuthorLastName_4">Haja</td><td ID="MedicationTaxonomyCode_4">[id number]</td><td ID="MedicationTaxonomyDesc_4">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</td><td ID="MedicationPhoneNumber_4">[phone]</td> [facility] ([facility]) Metronidazole 500 MG Oral Tablet [Flagyl] Flagyl 500 MG Flag yl 500 MG 11/15/2020 12:00:00 AM EDT 1.0 {tablet} active F lagyl 500 MG eCW1 ([facility]) buspirone hydrochloride 10 MG Oral Tablet buspirone 2020 12:00:00 AM EDT 10 mg by mouth completed <td ID="Medic ationRxNorm_1">[id number]</td><td ID="MedicationMedication_1">buspirone</td><td ID="MedicationRoute_1">by mouth</td><td ID="MedicationRouteConcept_1">V59471</td><td ID="MedicationStartDate_1">11/15/2020</td><td ID="MedicationStopDate_1">02/07/2021</td><td ID="MedicationDosageFrequency_1">twice a day</td><td ID="MedicationDuration_1">30</td><td ID="MedicationFormulaStrength_1">10 mg</td><td ID="MedicationDosageForm_1">tablet</td><td ID="MedicationDosageFormCode_1"></td><td ID="MedicationDosageDescription_1"></td><td ID="MedicationMedicationId_1">[id number]</td><td ID="MedicationAccount_1">[id number]</td><td ID="MedicationNpid_1">[id number]</td><td ID="MedicationAuthorFirstName_1">Varun</td><td ID="MedicationAuthorLastName_1">Haja</td><td ID="MedicationTaxonomyCode_1">[id number]</td><td ID="MedicationTaxonomyDesc_1">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</td><td ID="MedicationPhoneNumber_1">[phone]</td> [facility] ([facility]) Metronidazole 500 MG Oral Tablet [Flagyl] Flagyl 500 MG Flag yl 500 MG 11/15/2020 12:00:00 AM EDT 1.0 {tablet} active F lagyl 500 MG eCW1 ([facility]) Metronidazole 500 MG Oral Tablet [Flagyl] Flagyl 500 MG Flag yl 500 MG 11/15/2020 12:00:00 AM EDT 1.0 {tablet} active F lagyl 500 MG eCW1 ([facility]) Metronidazole 500 MG Oral Tablet [Flagyl] Flagyl 500 MG Flag yl 500 MG 11/15/2020 12:00:00 AM EDT 1.0 {tablet} active F lagyl 500 MG eCW1 ([facility]) Metronidazole 500 MG Oral Tablet [Flagyl] Flagyl 500 MG Flag yl 500 MG 11/15/2020 12:00:00 AM EDT 1.0 {tablet} active F lagyl 500 MG eCW1 ([facility]) Metronidazole 500 MG Oral Tablet [Flagyl] Flagyl 500 MG Flag yl 500 MG 11/15/2020 12:00:00 AM EDT 1.0 {tablet} active F lagyl 500 MG eCW1 ([facility]) Metronidazole 500 MG Oral Tablet [Flagyl] Flagyl 500 MG Flag yl 500 MG 11/15/2020 12:00:00 AM EDT 1.0 {tablet} active F lagyl 500 MG eCW1 ([facility]) Phenazopyridine hydrochloride 100 MG Oral Tablet [Pyri dium] Pyridium 100 MG Pyridium 100 MG 11/10/2020 12:00:00 AM EDT 1.0 {tablets_after_meals} active Pyridium 100 MG eCW1 ([facility]) Phenazopyridine hydrochloride 100 MG Oral Tablet [Pyri dium] Pyridium 100 MG Pyridium 100 MG 11/10/2020 12:00:00 AM EDT 1.0 {tablets_after_meals} active Pyridium 100 MG eCW1 ([facility]) Estrogens, Conjugated (FPC) 0.625 MG/ML Vaginal Cream [Premarin] Premarin 0.625 MG/GM Premarin 0.625 MG/GM 11/10/2020 12:00:00 AM EDT active Premarin 0.625 MG/GM eCW1 ([facility]) Estrogens, Conjugated (FPC) 0.625 MG/ML Vaginal Cream [Premarin] Premarin 0.625 MG/GM Premarin 0.625 MG/GM 11/10/2020 12:00:00 AM EDT active Premarin 0.625 MG/GM eCW1 ([facility]) Estrogens, Conjugated (FPC) 0.625 MG/ML Vaginal Cream [Premarin] Premarin 0.625 MG/GM Premarin 0.625 MG/GM 11/10/2020 12:00:00 AM EDT active Premarin 0.625 MG/GM eCW1 ([facility]) Estrogens, Conjugated (FPC) 0.625 MG/ML Vaginal Cream [Premarin] Premarin 0.625 MG/GM Premarin 0.625 MG/GM 11/10/2020 12:00:00 AM EDT active Premarin 0.625 MG/GM eCW1 ([facility]) Estrogens, Conjugated (FPC) 0.625 MG/ML Vaginal Cream [Premarin] Premarin 0.625 MG/GM Premarin 0.625 MG/GM 11/10/2020 12:00:00 AM EDT active Premarin 0.625 MG/GM eCW1 ([facility]) Phenazopyridine hydrochloride 100 MG Oral Tablet [Pyri dium] Pyridium 100 MG Pyridium 100 MG 11/10/2020 12:00:00 AM EDT 1.0 {tablets_after_meals} active Pyridium 100 MG eCW1 ([facility]) Phenazopyridine hydrochloride 100 MG Oral Tablet [Pyri dium] Pyridium 100 MG Pyridium 100 MG 11/10/2020 12:00:00 AM EDT 1.0 {tablets_after_meals} active Pyridium 100 MG eCW1 ([facility]) Phenazopyridine hydrochloride 100 MG Oral Tablet [Pyri dium] Pyridium 100 MG Pyridium 100 MG 11/10/2020 12:00:00 AM EDT 1.0 {tablets_after_meals} active Pyridium 100 MG eCW1 ([facility]) Phenazopyridine hydrochloride 100 MG Oral Tablet [Pyri dium] Pyridium 100 MG Pyridium 100 MG 11/10/2020 12:00:00 AM EDT 1.0 {tablets_after_meals} active Pyridium 100 MG eCW1 ([facility]) Phenazopyridine hydrochloride 100 MG Oral Tablet [Pyri dium] Pyridium 100 MG Pyridium 100 MG 11/10/2020 12:00:00 AM EDT 1.0 {tablets_after_meals} active Pyridium 100 MG eCW1 ([facility]) Estrogens, Conjugated (FPC) 0.625 MG/ML Vaginal Cream [Premarin] Premarin 0.625 MG/GM Premarin 0.625 MG/GM 11/10/2020 12:00:00 AM EDT active Premarin 0.625 MG/GM eCW1 ([facility]) Estrogens, Conjugated (FPC) 0.625 MG/ML Vaginal Cream [Premarin] Premarin 0.625 MG/GM Premarin 0.625 MG/GM 11/10/2020 12:00:00 AM EDT active Premarin 0.625 MG/GM eCW1 ([facility]) Trazodone Hydrochloride 150 MG Oral Tablet trazodone 10/14 12:00:00 AM EDT 150 mg by mouth completed <td ID="Medic ationRxNorm_4">336326</td><td ID="MedicationMedication_4">trazodone</td><td ID="MedicationRoute_4">by mouth</td><td ID="MedicationRouteConcept_4">E46942</td><td ID="MedicationStartDate_4">10/14/2020</td><td ID="MedicationStopDate_4">03/09/2021</td><td ID="MedicationDosageFrequency_4">at bedtime</td><td ID="MedicationDuration_4">90</td><td ID="MedicationFormulaStrength_4">150 mg</td><td ID="MedicationDosageForm_4">tablet</td><td ID="MedicationDosageFormCode_4"></td><td ID="MedicationDosageDescription_4"></td><td ID="MedicationMedicationId_4">[id number]</td><td ID="MedicationAccount_4">[id number]</td><td ID="MedicationNpid_4">[id number]</td><td ID="MedicationAuthorFirstName_4">Varun</td><td ID="MedicationAuthorLastName_4">Haja</td><td ID="MedicationTaxonomyCode_4">[id number]</td><td ID="MedicationTaxonomyDesc_4">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</td><td ID="MedicationPhoneNumber_4">[phone]</td> [facility] ([facility]) Trazodone Hydrochloride 150 MG Oral Tablet trazodone 10/14 12:00:00 AM EDT 150 mg by mouth completed <td ID="Medic ationRxNorm_3">590151</td><td ID="MedicationMedication_3">trazodone</td><td ID="MedicationRoute_3">by mouth</td><td ID="MedicationRouteConcept_3">J91477</td><td ID="MedicationStartDate_3">10/14/2020</td><td ID="MedicationStopDate_3">05/17/2021</td><td ID="MedicationDosageFrequency_3">at bedtime</td><td ID="MedicationDuration_3">30</td><td ID="MedicationFormulaStrength_3">150 mg</td><td ID="MedicationDosageForm_3">tablet</td><td ID="MedicationDosageFormCode_3"></td><td ID="MedicationDosageDescription_3"></td><td ID="MedicationMedicationId_3">[id number]</td><td ID="MedicationAccount_3">[id number]</td><td ID="MedicationNpid_3">[id number]</td><td ID="MedicationAuthorFirstName_3">Varun</td><td ID="MedicationAuthorLastName_3">Haja</td><td ID="MedicationTaxonomyCode_3">[id number]</td><td ID="MedicationTaxonomyDesc_3">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</td><td ID="MedicationPhoneNumber_3">[phone]</td> [facility] ([facility]) buspirone hydrochloride 10 MG Oral Tablet buspirone 2020 12:00:00 AM EST 10 mg by mouth completed <td ID="Medic ationRxNorm_3">664658</td><td ID="MedicationMedication_3">buspirone</td><td ID="MedicationRoute_3">by mouth</td><td ID="MedicationRouteConcept_3">G42212</td><td ID="MedicationStartDate_3">06/02/2020</td><td ID="MedicationStopDate_3">08/29/2020</td><td ID="MedicationDosageFrequency_3">twice a day</td><td ID="MedicationDuration_3">30</td><td ID="MedicationFormulaStrength_3">10 mg</td><td ID="MedicationDosageForm_3">tablet</td><td ID="MedicationDosageFormCode_3"></td><td ID="MedicationDosageDescription_3"></td><td ID="MedicationMedicationId_3">[id number]</td><td ID="MedicationAccount_3">[id number]</td><td ID="MedicationNpid_3">[id number]</td><td ID="MedicationAuthorFirstName_3">Varun</td><td ID="MedicationAuthorLastName_3">Haja</td><td ID="MedicationTaxonomyCode_3">[id number]</td><td ID="MedicationTaxonomyDesc_3">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</td><td ID="MedicationPhoneNumber_3">[phone]</td> [facility] ([facility]) Trazodone Hydrochloride 150 MG Oral Tablet trazodone 05/13 12:00:00 AM EST 150 mg completed <td ID="Medica tionRxNorm_2">677617</td><td ID="MedicationMedication_2">trazodone</td><td ID="MedicationRoute_2"></td><td ID="MedicationRouteConcept_2"></td><td ID="MedicationStartDate_2">05/13/2020</td><td ID="MedicationStopDate_2"></td><td ID="MedicationDosageFrequency_2"></td><td ID="MedicationDuration_2"></td><td ID="MedicationFormulaStrength_2">150 mg</td><td ID="MedicationDosageForm_2">tablet</td><td ID="MedicationDosageFormCode_2"></td><td ID="MedicationDosageDescription_2"></td><td ID="MedicationMedicationId_2">[id number]</td><td ID="MedicationAccount_2">[id number]</td><td ID="MedicationNpid_2">[id number]</td><td ID="MedicationAuthorFirstName_2">Varun</td><td ID="MedicationAuthorLastName_2">Haja</td><td ID="MedicationTaxonomyCode_2">[id number]</td><td ID="MedicationTaxonomyDesc_2">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</td><td ID="MedicationPhoneNumber_2">[phone]</td> [facility] ([facility]) Trazodone Hydrochloride 150 MG Oral Tablet trazodone 05/13 12:00:00 AM EST 150 mg completed <td ID="Medica tionRxNorm_3">587453</td><td ID="MedicationMedication_3">trazodone</td><td ID="MedicationRoute_3"></td><td ID="MedicationRouteConcept_3"></td><td ID="MedicationStartDate_3">05/13/2020</td><td ID="MedicationStopDate_3"></td><td ID="MedicationDosageFrequency_3"></td><td ID="MedicationDuration_3"></td><td ID="MedicationFormulaStrength_3">150 mg</td><td ID="MedicationDosageForm_3">tablet</td><td ID="MedicationDosageFormCode_3"></td><td ID="MedicationDosageDescription_3"></td><td ID="MedicationMedicationId_3">[id number]</td><td ID="MedicationAccount_3">[id number]</td><td ID="MedicationNpid_3">[id number]</td><td ID="MedicationAuthorFirstName_3">Varun</td><td ID="MedicationAuthorLastName_3">Haja</td><td ID="MedicationTaxonomyCode_3">[id number]</td><td ID="MedicationTaxonomyDesc_3">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</td><td ID="MedicationPhoneNumber_3">[phone]</td> [facility] ([facility]) Trazodone Hydrochloride 150 MG Oral Tablet trazodone 05/13 12:00:00 AM EST 150 mg completed <td ID="Medica tionRxNorm_4">014262</td><td ID="MedicationMedication_4">trazodone</td><td ID="MedicationRoute_4"></td><td ID="MedicationRouteConcept_4"></td><td ID="MedicationStartDate_4">05/13/2020</td><td ID="MedicationStopDate_4"></td><td ID="MedicationDosageFrequency_4"></td><td ID="MedicationDuration_4"></td><td ID="MedicationFormulaStrength_4">150 mg</td><td ID="MedicationDosageForm_4">tablet</td><td ID="MedicationDosageFormCode_4"></td><td ID="MedicationDosageDescription_4"></td><td ID="MedicationMedicationId_4">[id number]</td><td ID="MedicationAccount_4">[id number]</td><td ID="MedicationNpid_4">[id number]</td><td ID="MedicationAuthorFirstName_4">Varun</td><td ID="MedicationAuthorLastName_4">Haja</td><td ID="MedicationTaxonomyCode_4">[id number]</td><td ID="MedicationTaxonomyDesc_4">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</td><td ID="MedicationPhoneNumber_4">[phone]</td> [facility] ([facility]) quetiapine 50 MG Oral Tablet quetiapine 04/28/2020 12:00:00 AM EST 50 mg by mouth completed <td ID="Medica tionRxNorm_2">260055</td><td ID="MedicationMedication_2">quetiapine</td><td ID="MedicationRoute_2">by mouth</td><td ID="MedicationRouteConcept_2">O58817</td><td ID="MedicationStartDate_2">04/28/2020</td><td ID="MedicationStopDate_2">05/17/2021</td><td ID="MedicationDosageFrequency_2">at bedtime</td><td ID="MedicationDuration_2">30</td><td ID="MedicationFormulaStrength_2">50 mg</td><td ID="MedicationDosageForm_2">tablet</td><td ID="MedicationDosageFormCode_2"></td><td ID="MedicationDosageDescription_2"></td><td ID="MedicationMedicationId_2">70885</td><td ID="MedicationAccount_2">[id number]</td><td ID="MedicationNpid_2">[id number]</td><td ID="MedicationAuthorFirstName_2">Varun</td><td ID="MedicationAuthorLastName_2">Haja</td><td ID="MedicationTaxonomyCode_2">[id number]</td><td ID="MedicationTaxonomyDesc_2">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</td><td ID="MedicationPhoneNumber_2">[phone]</td> [facility] ([facility]) quetiapine 50 MG Oral Tablet quetiapine 04/28/2020 12:00:00 AM EST 50 mg by mouth completed <td ID="Medica tionRxNorm_1">108780</td><td ID="MedicationMedication_1">quetiapine</td><td ID="MedicationRoute_1">by mouth</td><td ID="MedicationRouteConcept_1">L80165</td><td ID="MedicationStartDate_1">04/28/2020</td><td ID="MedicationStopDate_1">10/31/2020</td><td ID="MedicationDosageFrequency_1">at bedtime</td><td ID="MedicationDuration_1">30</td><td ID="MedicationFormulaStrength_1">50 mg</td><td ID="MedicationDosageForm_1">tablet</td><td ID="MedicationDosageFormCode_1"></td><td ID="MedicationDosageDescription_1"></td><td ID="MedicationMedicationId_1">[id number]</td><td ID="MedicationAccount_1">[id number]</td><td ID="MedicationNpid_1">[id number]</td><td ID="MedicationAuthorFirstName_1">Varun</td><td ID="MedicationAuthorLastName_1">Haja</td><td ID="MedicationTaxonomyCode_1">[id number]</td><td ID="MedicationTaxonomyDesc_1">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</td><td ID="MedicationPhoneNumber_1">[phone]</td> [facility] ([facility]) quetiapine 50 MG Oral Tablet quetiapine 04/28/2020 12:00:00 AM EST 50 mg by mouth completed <td ID="Medica tionRxNorm_4">960483</td><td ID="MedicationMedication_4">quetiapine</td><td ID="MedicationRoute_4">by mouth</td><td ID="MedicationRouteConcept_4">V76199</td><td ID="MedicationStartDate_4">04/28/2020</td><td ID="MedicationStopDate_4">09/26/2020</td><td ID="MedicationDosageFrequency_4">at bedtime</td><td ID="MedicationDuration_4">30</td><td ID="MedicationFormulaStrength_4">50 mg</td><td ID="MedicationDosageForm_4">tablet</td><td ID="MedicationDosageFormCode_4"></td><td ID="MedicationDosageDescription_4"></td><td ID="MedicationMedicationId_4">[id number]</td><td ID="MedicationAccount_4">[id number]</td><td ID="MedicationNpid_4">[id number]</td><td ID="MedicationAuthorFirstName_4">Varun</td><td ID="MedicationAuthorLastName_4">Haja</td><td ID="MedicationTaxonomyCode_4">[id number]</td><td ID="MedicationTaxonomyDesc_4">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</td><td ID="MedicationPhoneNumber_4">[phone]</td> [facility] ([facility]) quetiapine 50 MG Oral Tablet quetiapine 04/28/2020 12:00:00 AM EST 50 mg by mouth completed <td ID="Medica tionRxNorm_3">538416</td><td ID="MedicationMedication_3">quetiapine</td><td ID="MedicationRoute_3">by mouth</td><td ID="MedicationRouteConcept_3">X12396</td><td ID="MedicationStartDate_3">04/28/2020</td><td ID="MedicationStopDate_3">03/09/2021</td><td ID="MedicationDosageFrequency_3">at bedtime</td><td ID="MedicationDuration_3">90</td><td ID="MedicationFormulaStrength_3">50 mg</td><td ID="MedicationDosageForm_3">tablet</td><td ID="MedicationDosageFormCode_3"></td><td ID="MedicationDosageDescription_3"></td><td ID="MedicationMedicationId_3">58698</td><td ID="MedicationAccount_3">[id number]</td><td ID="MedicationNpid_3">[id number]</td><td ID="MedicationAuthorFirstName_3">Varun</td><td ID="MedicationAuthorLastName_3">Haja</td><td ID="MedicationTaxonomyCode_3">[id number]</td><td ID="MedicationTaxonomyDesc_3">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</td><td ID="MedicationPhoneNumber_3">[phone]</td> [facility] ([facility]) Trazodone Hydrochloride 100 MG Oral Tablet trazodone 04/07 12:00:00 AM EST 100 mg by mouth completed <td ID="Medic ationRxNorm_2">781450</td><td ID="MedicationMedication_2">trazodone</td><td ID="MedicationRoute_2">by mouth</td><td ID="MedicationRouteConcept_2">P40851</td><td ID="MedicationStartDate_2">04/07/2020</td><td ID="MedicationStopDate_2">05/07/2020</td><td ID="MedicationDosageFrequency_2">at bedtime</td><td ID="MedicationDuration_2">30</td><td ID="MedicationFormulaStrength_2">100 mg</td><td ID="MedicationDosageForm_2">tablet</td><td ID="MedicationDosageFormCode_2"></td><td ID="MedicationDosageDescription_2"></td><td ID="MedicationMedicationId_2">[id number]</td><td ID="MedicationAccount_2">[id number]</td><td ID="MedicationNpid_2">[id number]</td><td ID="MedicationAuthorFirstName_2">Varun</td><td ID="MedicationAuthorLastName_2">Haja</td><td ID="MedicationTaxonomyCode_2">[id number]</td><td ID="MedicationTaxonomyDesc_2">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</td><td ID="MedicationPhoneNumber_2">[phone]</td> [facility] ([facility]) Mirtazapine 15 MG Oral Tablet mirtazapine 12/17/2019 12:00:00 AM EDT 15 mg by mouth completed <td ID="Medica tionRxNorm_4">332113</td><td ID="MedicationMedication_4">mirtazapine</td><td ID="MedicationRoute_4">by mouth</td><td ID="MedicationRouteConcept_4">R86668</td><td ID="MedicationStartDate_4">12/17/2019</td><td ID="MedicationStopDate_4">07/06/2020</td><td ID="MedicationDosageFrequency_4">at bedtime</td><td ID="MedicationDuration_4">30</td><td ID="MedicationFormulaStrength_4">15 mg</td><td ID="MedicationDosageForm_4">tablet</td><td ID="MedicationDosageFormCode_4"></td><td ID="MedicationDosageDescription_4"></td><td ID="MedicationMedicationId_4">[id number]</td><td ID="MedicationAccount_4">[id number]</td><td ID="MedicationNpid_4">[id number]</td><td ID="MedicationAuthorFirstName_4">Varun</td><td ID="MedicationAuthorLastName_4">Haja</td><td ID="MedicationTaxonomyCode_4">[id number]</td><td ID="MedicationTaxonomyDesc_4">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</td><td ID="MedicationPhoneNumber_4">[phone]</td> [facility] ([facility]) Mirtazapine 15 MG Oral Tablet mirtazapine 12/17/2019 12:00:00 AM EDT 15 mg by mouth completed <td ID="Medica tionRxNorm_5">239514</td><td ID="MedicationMedication_5">mirtazapine</td><td ID="MedicationRoute_5">by mouth</td><td ID="MedicationRouteConcept_5">T53418</td><td ID="MedicationStartDate_5">12/17/2019</td><td ID="MedicationStopDate_5">04/27/2020</td><td ID="MedicationDosageFrequency_5">at bedtime</td><td ID="MedicationDuration_5">30</td><td ID="MedicationFormulaStrength_5">15 mg</td><td ID="MedicationDosageForm_5">tablet</td><td ID="MedicationDosageFormCode_5"></td><td ID="MedicationDosageDescription_5"></td><td ID="MedicationMedicationId_5">[id number]</td><td ID="MedicationAccount_5">[id number]</td><td ID="MedicationNpid_5">[id number]</td><td ID="MedicationAuthorFirstName_5">Varun</td><td ID="MedicationAuthorLastName_5">Haja</td><td ID="MedicationTaxonomyCode_5">[id number]</td><td ID="MedicationTaxonomyDesc_5">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</td><td ID="MedicationPhoneNumber_5">[phone]</td> [facility] ([facility]) Mirtazapine 15 MG Oral Tablet mirtazapine 12/17/2019 12:00:00 AM EDT 15 mg by mouth completed <td ID="Medica tionRxNorm_3">968153</td><td ID="MedicationMedication_3">mirtazapine</td><td ID="MedicationRoute_3">by mouth</td><td ID="MedicationRouteConcept_3">C07083</td><td ID="MedicationStartDate_3">12/17/2019</td><td ID="MedicationStopDate_3">06/06/2020</td><td ID="MedicationDosageFrequency_3">at bedtime</td><td ID="MedicationDuration_3">30</td><td ID="MedicationFormulaStrength_3">15 mg</td><td ID="MedicationDosageForm_3">tablet</td><td ID="MedicationDosageFormCode_3"></td><td ID="MedicationDosageDescription_3"></td><td ID="MedicationMedicationId_3">[id number]</td><td ID="MedicationAccount_3">[id number]</td><td ID="MedicationNpid_3">[id number]</td><td ID="MedicationAuthorFirstName_3">Varun</td><td ID="MedicationAuthorLastName_3">Haja</td><td ID="MedicationTaxonomyCode_3">[id number]</td><td ID="MedicationTaxonomyDesc_3">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</td><td ID="MedicationPhoneNumber_3">[phone]</td> [facility] ([facility]) buspirone hydrochloride 10 MG Oral Tablet buspirone 2019 12:00:00 AM EDT 10 mg by mouth completed <td ID="Medic ationRxNorm_2">753573</td><td ID="MedicationMedication_2">buspirone</td><td ID="MedicationRoute_2">by mouth</td><td ID="MedicationRouteConcept_2">R78154</td><td ID="MedicationStartDate_2">11/05/2019</td><td ID="MedicationStopDate_2">06/06/2020</td><td ID="MedicationDosageFrequency_2">twice a day</td><td ID="MedicationDuration_2">30</td><td ID="MedicationFormulaStrength_2">10 mg</td><td ID="MedicationDosageForm_2">tablet</td><td ID="MedicationDosageFormCode_2"></td><td ID="MedicationDosageDescription_2"></td><td ID="MedicationMedicationId_2">39990</td><td ID="MedicationAccount_2">[id number]</td><td ID="MedicationNpid_2">[id number]</td><td ID="MedicationAuthorFirstName_2">Varun</td><td ID="MedicationAuthorLastName_2">Haja</td><td ID="MedicationTaxonomyCode_2">[id number]</td><td ID="MedicationTaxonomyDesc_2">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</td><td ID="MedicationPhoneNumber_2">[phone]</td> [facility] ([facility]) Escitalopram 20 MG Oral Tablet [Lexapro] Lexapro 03/07/2018 12 :00:00 AM EDT 20 mg by mouth completed <td ID="Me dicationRxNorm_2">449184</td><td ID="MedicationMedication_2">Lexapro</td><td ID="MedicationRoute_2">by mouth</td><td ID="MedicationRouteConcept_2">L51867</td><td ID="MedicationStartDate_2">03/07/2018</td><td ID="MedicationStopDate_2">03/09/2021</td><td ID="MedicationDosageFrequency_2">once a day</td><td ID="MedicationDuration_2">90</td><td ID="MedicationFormulaStrength_2">20 mg</td><td ID="MedicationDosageForm_2">tablet</td><td ID="MedicationDosageFormCode_2"></td><td ID="MedicationDosageDescription_2"></td><td ID="MedicationMedicationId_2">06577</td><td ID="MedicationAccount_2">[id number]</td><td ID="MedicationNpid_2">[id number]</td><td ID="MedicationAuthorFirstName_2">Varun</td><td ID="MedicationAuthorLastName_2">Haja</td><td ID="MedicationTaxonomyCode_2">[id number]</td><td ID="MedicationTaxonomyDesc_2">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</td><td ID="MedicationPhoneNumber_2">[phone]</td> [facility] ([facility]) Aspirin 81 MG Oral Tablet aspirin 81 mg tablet Take by oral route. aspirin 81 mg tablet Take by oral route. completed aspirin 81 MG Oral Tablet [facility] ([facility]) Mirtazapine 30 MG Oral Tablet mirtazapin e 30 mg tablet TAKE ONE TABLET BY MOUTH AT BEDTIME mirtazapine 30 mg tablet TAKE ONE TABLET BY MOUTH AT BEDTIME completed mirtazapine 30 MG Oral Ta blet [place] ([facility]) Metronidazole 500 MG Oral Tablet metroni dazole 500 mg tablet TAKE ONE TABLET BY MOUTH THREE TIMES A DAY metronidazole 500 mg tablet TAKE ONE TAB LET BY MOUTH THREE TIMES A DAY completed metr onidazole 500 MG Oral Tablet [place] ([facility]) Mirtazapine 15 MG Oral Tablet mirtazapin e 15 mg tablet TAKE ONE TABLET BY MOUTH AT BEDTIME mirtazapine 15 mg tablet TAKE ONE TABLET BY MOUTH AT BEDTIME completed mirtazapine 15 MG Oral Ta blet [place] ([facility]) Aspirin 81 MG Oral Tablet aspirin 81 mg tablet Take by oral route. aspirin 81 mg tablet Take by oral route. completed aspirin 81 MG Oral Tablet [place] ([facility]) Mirtazapine 15 MG Oral Tablet mirtazapin e 15 mg tablet TAKE ONE TABLET BY MOUTH AT BEDTIME mirtazapine 15 mg tablet TAKE ONE TABLET BY MOUTH AT BEDTIME completed mirtazapine 15 MG Oral Ta blet [facility] ([facility]) Trulance 3 mg tablet TAKE ONE TABLET BY MOUTH EVERY DAY FOR IBS WITH CONSTIPATION [id number] completed pl ecanatide 3 MG Oral Tablet [Trulance] [facility] ([facility]) Metronidazole 500 MG Oral Tablet metroni dazole 500 mg tablet TAKE ONE TABLET BY MOUTH THREE TIMES A DAY metronidazole 500 mg tablet TAKE ONE TAB LET BY MOUTH THREE TIMES A DAY completed metr onidazole 500 MG Oral Tablet [place] ([facility]) Naproxen 500 MG Oral Tablet naproxen 500 mg tablet TAKE ONE TABLET BY MOUTH TWICE A DAY NEEDED naproxen 500 mg tablet TAKE ONE TABLET B Y MOUTH TWICE A DAY NEEDED completed naproxen 500 MG Oral Tablet [place] ([facility]) Mirtazapine 15 MG Oral Tablet mirtazapin e 15 mg tablet TAKE ONE TABLET BY MOUTH AT BEDTIME mirtazapine 15 mg tablet TAKE ONE TABLET BY MOUTH AT BEDTIME completed mirtazapine 15 MG Oral Ta blet [facility] ([facility]) pantoprazole 40 MG Delayed Release Oral Tablet pantoprazole 40 mg tablet,delayed release TAKE ONE TABLET BY MOUTH DAILY pantoprazole 40 mg tablet,delayed release TAKE ONE TABLET BY MOUTH DAILY completed pantoprazole 40 MG Delayed Release Oral Tablet [facility] ([facility]) buspirone completed Buspar ATH ANG[place] ([facility]) Mirtazapine 30 MG Oral Tablet mirtazapin e 30 mg tablet TAKE ONE TABLET BY MOUTH AT BEDTIME mirtazapine 30 mg tablet TAKE ONE TABLET BY MOUTH AT BEDTIME completed mirtazapine 30 MG Oral Ta blet [place] ([facility]) Mirtazapine 7.5 MG Oral Tablet mirtazapi ne 7.5 mg tablet TAKE ONE TABLET BY MOUTH AT BEDTIME mirtazapine 7.5 mg tablet TAKE ONE TABLET BY MOUTH AT BEDTIME completed mirtazapine 7. 5 MG Oral Tablet [place] ([facility]) Trazodone Hydrochloride 100 MG Oral Tabl et trazodone 100 mg tablet TAKE TWO TABLETS BY MOUTH AT BEDTIME trazodone 100 mg tablet TAKE TWO TABLETS BY MOUTH AT BEDTIME completed trazodone hyd rochloride 100 MG Oral Tablet [place] ([facility]) Mirtazapine 15 MG Oral Tablet mirtazapin e 15 mg tablet TAKE ONE TABLET BY MOUTH AT BEDTIME mirtazapine 15 mg tablet TAKE ONE TABLET BY MOUTH AT BEDTIME completed mirtazapine 15 MG Oral Ta blet [place] ([facility]) trazodone completed [facility] ([facility]) Trazodone Hydrochloride 100 MG Oral Tabl et trazodone 100 mg tablet TAKE TWO TABLETS BY MOUTH AT BEDTIME trazodone 100 mg tablet TAKE TWO TABLETS BY MOUTH AT BEDTIME completed trazodone hyd rochloride 100 MG Oral Tablet [place] ([facility]) Mirtazapine 15 MG Oral Tablet mirtazapin e 15 mg tablet TAKE ONE TABLET BY MOUTH AT BEDTIME mirtazapine 15 mg tablet TAKE ONE TABLET BY MOUTH AT BEDTIME completed mirtazapine 15 MG Oral Ta blet [place] ([facility]) Trazodone Hydrochloride 100 MG Oral Tabl et trazodone 100 mg tablet TAKE TWO TABLETS BY MOUTH AT BEDTIME trazodone 100 mg tablet TAKE TWO TABLETS BY MOUTH AT BEDTIME completed trazodone hyd rochloride 100 MG Oral Tablet [place] ([facility]) Lisinopril 10 MG Oral Tablet lisinopril 10 mg tablet Take 1 tablet every day by oral route. lisinopril 10 mg tablet Take 1 tablet every day by oral route. 1 completed lisinopril 10 MG Oral Tablet [facility] ([facility]) 24 HR Nicotine 0.875 MG/HR Transdermal P [facility] nicotine 21 mg/24 hr daily transdermal patch APPLY ONE PATCH TO THE SKIN DAILY nicotine 21 mg/24 hr daily transdermal patch APPLY ONE PATCH TO THE SKIN DAILY completed 24 HR nicotine 0.875 MG/HR Transdermal System [place] ([facility]) Aspirin 81 MG Oral Tablet aspirin 81 mg tablet Take by oral route. aspirin 81 mg tablet Take by oral route. completed aspirin 81 MG Oral Tablet [place] ([facility]) buspirone completed Buspar ATH ANGELO ([facility]) Mirtazapine 7.5 MG Oral Tablet mirtazapi ne 7.5 mg tablet TAKE ONE TABLET BY MOUTH AT BEDTIME mirtazapine 7.5 mg tablet TAKE ONE TABLET BY MOUTH AT BEDTIME completed mirtazapine 7. 5 MG Oral Tablet LASHONDA ([facility]) quetiapine 50 MG Oral Tablet quetiapine 50 mg tablet TAKE ONE TABLET BY MOUTH AT BEDTIME quetiapine 50 mg tablet TAKE ONE TABLET BY MOUTH AT BEDTIME completed quetiapine 50 MG Oral Tablet [place] ([facility]) citalopram completed Celexa AT [place] ([facility]) Trazodone Hydrochloride 100 MG Oral Tabl et trazodone 100 mg tablet TAKE TWO TABLETS BY MOUTH AT BEDTIME trazodone 100 mg tablet TAKE TWO TABLETS BY MOUTH AT BEDTIME completed trazodone hyd rochloride 100 MG Oral Tablet LASHONDA ([facility]) Mirtazapine 15 MG Oral Tablet mirtazapin e 15 mg tablet TAKE ONE TABLET BY MOUTH AT BEDTIME mirtazapine 15 mg tablet TAKE ONE TABLET BY MOUTH AT BEDTIME completed mirtazapine 15 MG Oral Ta blet LASHONDA ([facility]) pantoprazole 40 MG Delayed Release Oral Tablet pantoprazole 40 mg tablet,delayed release TAKE ONE TABLET BY MOUTH DAILY pantoprazole 40 mg tablet,delayed release TAKE ONE TABLET BY MOUTH DAILY completed pantoprazole 40 MG Delayed Release Oral Tablet LASHONDA ([facility]) Mirtazapine 30 MG Oral Tablet mirtazapin e 30 mg tablet TAKE ONE TABLET BY MOUTH AT BEDTIME mirtazapine 30 mg tablet TAKE ONE TABLET BY MOUTH AT BEDTIME completed mirtazapine 30 MG Oral Ta blet LASHONDA ([facility]) Sucralfate 1000 MG Oral Tablet sucralfat e 1 gram tablet TAKE ONE TABLET BY MOUTH FOUR TIMES A DAY ON AN EMPTY STOMACH 1 HOUR BEFORE MEALS AND AT BEDTIME sucralfate 1 gram tablet TAKE ONE TABLET BY MOUTH FOUR TIMES A DAY ON AN EMPTY STOMACH 1 HOUR BEFORE MEALS AND AT BEDTIME completed sucralfate 1000 MG Oral Tablet LASHONDA ([facility]) Lisinopril 10 MG Oral Tablet lisinopril 10 mg tablet Take 1 tablet every day by oral route. lisinopril 10 mg tablet Take 1 tablet every day by oral route. 1 completed lisinopril 10 MG Oral Tablet SPR[place] ([facility]) Sucralfate 1000 MG Oral Tablet sucralfat e 1 gram tablet TAKE ONE TABLET BY MOUTH FOUR TIMES A DAY ON AN EMPTY STOMACH 1 HOUR BEFORE MEALS AND AT BEDTIME sucralfate 1 gram tablet TAKE ONE TABLET BY MOUTH FOUR TIMES A DAY ON AN EMPTY STOMACH 1 HOUR BEFORE MEALS AND AT BEDTIME completed sucralfate 1000 MG Oral Tablet LASHONDA ([facility]) trazodone completed Jackie LO ([facility]) Mirtazapine 15 MG Oral Tablet mirtazapin e 15 mg tablet TAKE ONE TABLET BY MOUTH AT BEDTIME mirtazapine 15 mg tablet TAKE ONE TABLET BY MOUTH AT BEDTIME completed mirtazapine 15 MG Oral Ta blet LASHONDA ([facility]) Mirtazapine 7.5 MG Oral Tablet mirtazapi ne 7.5 mg tablet TAKE ONE TABLET BY MOUTH AT BEDTIME mirtazapine 7.5 mg tablet TAKE ONE TABLET BY MOUTH AT BEDTIME completed mirtazapine 7. 5 MG Oral Tablet LASHONDA ([facility]) Mirtazapine 30 MG Oral Tablet mirtazapin e 30 mg tablet TAKE ONE TABLET BY MOUTH AT BEDTIME mirtazapine 30 mg tablet TAKE ONE TABLET BY MOUTH AT BEDTIME completed mirtazapine 30 MG Oral Ta blet LASHONDA ([facility]) Mirtazapine 30 MG Oral Tablet mirtazapin e 30 mg tablet TAKE ONE TABLET BY MOUTH AT BEDTIME mirtazapine 30 mg tablet TAKE ONE TABLET BY MOUTH AT BEDTIME completed mirtazapine 30 MG Oral Ta blet LASHONDA ([facility]) Mirtazapine 7.5 MG Oral Tablet mirtazapi ne 7.5 mg tablet TAKE ONE TABLET BY MOUTH AT BEDTIME mirtazapine 7.5 mg tablet TAKE ONE TABLET BY MOUTH AT BEDTIME completed mirtazapine 7. 5 MG Oral Tablet LASHONDA ([facility]) Trazodone Hydrochloride 100 MG Oral Tabl et trazodone 100 mg tablet TAKE TWO TABLETS BY MOUTH AT BEDTIME trazodone 100 mg tablet TAKE TWO TABLETS BY MOUTH AT BEDTIME completed trazodone hyd rochloride 100 MG Oral Tablet LASHONDA ([facility]) Mirtazapine 7.5 MG Oral Tablet mirtazapi ne 7.5 mg tablet TAKE ONE TABLET BY MOUTH AT BEDTIME mirtazapine 7.5 mg tablet TAKE ONE TABLET BY MOUTH AT BEDTIME completed mirtazapine 7. 5 MG Oral Tablet LASHONDA ([facility]) Mirtazapine 15 MG Oral Tablet mirtazapin e 15 mg tablet TAKE ONE TABLET BY MOUTH AT BEDTIME mirtazapine 15 mg tablet TAKE ONE TABLET BY MOUTH AT BEDTIME completed mirtazapine 15 MG Oral Ta blet LASHONDA ([facility]) Mirtazapine 15 MG Oral Tablet mirtazapin e 15 mg tablet TAKE ONE TABLET BY MOUTH AT BEDTIME mirtazapine 15 mg tablet TAKE ONE TABLET BY MOUTH AT BEDTIME completed mirtazapine 15 MG Oral Ta blet LASHONDA ([facility]) Mirtazapine 7.5 MG Oral Tablet mirtazapi ne 7.5 mg tablet TAKE ONE TABLET BY MOUTH AT BEDTIME mirtazapine 7.5 mg tablet TAKE ONE TABLET BY MOUTH AT BEDTIME completed mirtazapine 7. 5 MG Oral Tablet LASHONDA ([facility]) Mirtazapine 15 MG Oral Tablet mirtazapin e 15 mg tablet TAKE ONE TABLET BY MOUTH AT BEDTIME mirtazapine 15 mg tablet TAKE ONE TABLET BY MOUTH AT BEDTIME completed mirtazapine 15 MG Oral Ta blet LASHONDA ([facility]) buspirone completed Buspar ATH ANGELO ([facility]) citalopram completed Celexa AT [facility]) Mirtazapine 30 MG Oral Tablet mirtazapin e 30 mg tablet TAKE ONE TABLET BY MOUTH AT BEDTIME mirtazapine 30 mg tablet TAKE ONE TABLET BY MOUTH AT BEDTIME completed mirtazapine 30 MG Oral Ta blet LASHONDA ([facility]) Trazodone Hydrochloride 100 MG Oral Tabl et trazodone 100 mg tablet TAKE TWO TABLETS BY MOUTH AT BEDTIME trazodone 100 mg tablet TAKE TWO TABLETS BY MOUTH AT BEDTIME completed trazodone hyd rochloride 100 MG Oral Tablet [place] ([facility]) Mirtazapine 7.5 MG Oral Tablet mirtazapi ne 7.5 mg tablet TAKE ONE TABLET BY MOUTH AT BEDTIME mirtazapine 7.5 mg tablet TAKE ONE TABLET BY MOUTH AT BEDTIME completed mirtazapine 7. 5 MG Oral Tablet [place] ([facility]) citalopram completed Celexa AT [facility]) fluticasone 113 mcg-salmeterol 14 mcg/ac tuation breath activated powdr INHALE ONE PUFF BY MOUTH EVERY 12 HOURS [id number] comp leted 60 ACTUAT fluticasone propionate 0.113 MG/ACTUAT / salmeterol 0.014 MG/ACTUAT Dry Powder Inhaler SPRUCE HEAD ([facility]) Mirtazapine 15 MG Oral Tablet mirtazapin e 15 mg tablet TAKE ONE TABLET BY MOUTH AT BEDTIME mirtazapine 15 mg tablet TAKE ONE TABLET BY MOUTH AT BEDTIME completed mirtazapine 15 MG Oral Ta blet LASHONDA ([facility]) trazodone completed Oleptro AT [facility]) Trazodone Hydrochloride 100 MG Oral Tabl et trazodone 100 mg tablet TAKE TWO TABLETS BY MOUTH AT BEDTIME trazodone 100 mg tablet TAKE TWO TABLETS BY MOUTH AT BEDTIME completed trazodone hyd rochloride 100 MG Oral Tablet LASHONDA ([facility]) Mirtazapine 30 MG Oral Tablet mirtazapin e 30 mg tablet TAKE ONE TABLET BY MOUTH AT BEDTIME mirtazapine 30 mg tablet TAKE ONE TABLET BY MOUTH AT BEDTIME completed mirtazapine 30 MG Oral Ta blet LASHONDA ([facility]) Sucralfate 1000 MG Oral Tablet sucralfat e 1 gram tablet TAKE ONE TABLET BY MOUTH FOUR TIMES A DAY ON AN EMPTY STOMACH 1 HOUR BEFORE MEALS AND AT BEDTIME sucralfate 1 gram tablet TAKE ONE TABLET BY MOUTH FOUR TIMES A DAY ON AN EMPTY STOMACH 1 HOUR BEFORE MEALS AND AT BEDTIME completed sucralfate 1000 MG Oral Tablet LASHONDA ([facility]) buspirone hydrochloride 30 MG Oral Table t buspirone 30 mg tablet TAKE ONE TABLET BY MOUTH TWICE A DAY buspirone 30 mg tablet TAKE ONE TABLET B Y MOUTH TWICE A DAY completed buspirone hydroc hloride 30 MG Oral Tablet LASHONDA ([facility]) Mirtazapine 7.5 MG Oral Tablet mirtazapi ne 7.5 mg tablet TAKE ONE TABLET BY MOUTH AT BEDTIME mirtazapine 7.5 mg tablet TAKE ONE TABLET BY MOUTH AT BEDTIME completed mirtazapine 7. 5 MG Oral Tablet LASHONDA ([facility]) Mirtazapine 7.5 MG Oral Tablet mirtazapi ne 7.5 mg tablet TAKE ONE TABLET BY MOUTH AT BEDTIME mirtazapine 7.5 mg tablet TAKE ONE TABLET BY MOUTH AT BEDTIME completed mirtazapine 7. 5 MG Oral Tablet LASHONDA ([facility]) Mirtazapine 30 MG Oral Tablet mirtazapin e 30 mg tablet TAKE ONE TABLET BY MOUTH AT BEDTIME mirtazapine 30 mg tablet TAKE ONE TABLET BY MOUTH AT BEDTIME completed mirtazapine 30 MG Oral Ta blet LASHONDA ([facility]) pantoprazole 40 MG Delayed Release Oral Tablet pantoprazole 40 mg tablet,delayed release TAKE ONE TABLET BY MOUTH DAILY pantoprazole 40 mg tablet,delayed release TAKE ONE TABLET BY MOUTH DAILY completed pantoprazole 40 MG Delayed Release Oral Tablet LASHONDA ([facility]) buspirone completed Buspar ATH ANGELO ([facility]) Mirtazapine 30 MG Oral Tablet mirtazapin e 30 mg tablet TAKE ONE TABLET BY MOUTH AT BEDTIME mirtazapine 30 mg tablet TAKE ONE TABLET BY MOUTH AT BEDTIME completed mirtazapine 30 MG Oral Ta blet LASHONDA ([facility]) Mirtazapine 15 MG Oral Tablet mirtazapin e 15 mg tablet TAKE ONE TABLET BY MOUTH AT BEDTIME mirtazapine 15 mg tablet TAKE ONE TABLET BY MOUTH AT BEDTIME completed mirtazapine 15 MG Oral Ta blet LASHONDA ([facility]) Naproxen 500 MG Oral Tablet naproxen 500 mg tablet TAKE ONE TABLET BY MOUTH TWICE A DAY NEEDED naproxen 500 mg tablet TAKE ONE TABLET B Y MOUTH TWICE A DAY NEEDED completed naproxen 500 MG Oral Tablet LASHONDA ([facility]) Lisinopril 10 MG Oral Tablet lisinopril 10 mg tablet Take 1 tablet every day by oral route. lisinopril 10 mg tablet Take 1 tablet every day by oral route. 1 completed lisinopril 10 MG Oral Tablet LASHONDA ([facility]) Trazodone Hydrochloride 100 MG Oral Tabl et trazodone 100 mg tablet TAKE TWO TABLETS BY MOUTH AT BEDTIME trazodone 100 mg tablet TAKE TWO TABLETS BY MOUTH AT BEDTIME completed trazodone hyd rochloride 100 MG Oral Tablet LASHONDA ([facility]) Mirtazapine 7.5 MG Oral Tablet mirtazapi ne 7.5 mg tablet TAKE ONE TABLET BY MOUTH AT BEDTIME mirtazapine 7.5 mg tablet TAKE ONE TABLET BY MOUTH AT BEDTIME completed mirtazapine 7. 5 MG Oral Tablet LASHONDA ([facility]) Trazodone Hydrochloride 100 MG Oral Tabl et trazodone 100 mg tablet TAKE TWO TABLETS BY MOUTH AT BEDTIME trazodone 100 mg tablet TAKE TWO TABLETS BY MOUTH AT BEDTIME completed trazodone hyd rochloride 100 MG Oral Tablet LASHONDA ([facility]) Trazodone Hydrochloride 100 MG Oral Tabl et trazodone 100 mg tablet TAKE TWO TABLETS BY MOUTH AT BEDTIME trazodone 100 mg tablet TAKE TWO TABLETS BY MOUTH AT BEDTIME completed trazodone hyd rochloride 100 MG Oral Tablet LASHONDA ([facility]) Acetaminophen 325 MG Oral Tablet acetami nophen 325 mg tablet TAKE ONE TABLET BY MOUTH EVERY 4 HOURS NEEDED FOR PAIN acetaminophen 325 mg tablet TAKE ONE TABLET BY MOUTH EVERY 4 HOURS NEEDED FOR PAIN completed acetaminophen 325 MG Oral Tablet LASHONDA ([facility]) Mirtazapine 7.5 MG Oral Tablet mirtazapi ne 7.5 mg tablet TAKE ONE TABLET BY MOUTH AT BEDTIME mirtazapine 7.5 mg tablet TAKE ONE TABLET BY MOUTH AT BEDTIME completed mirtazapine 7. 5 MG Oral Tablet LASHONDA ([facility]) Mirtazapine 15 MG Oral Tablet mirtazapin e 15 mg tablet TAKE ONE TABLET BY MOUTH AT BEDTIME mirtazapine 15 mg tablet TAKE ONE TABLET BY MOUTH AT BEDTIME completed mirtazapine 15 MG Oral Ta blet LASHONDA ([facility]) Trulance 3 mg tablet TAKE ONE TABLET BY MOUTH EVERY DAY FOR IBS WITH CONSTIPATION [id number] completed pl ecanatide 3 MG Oral Tablet [Trulance] LASHONDA ([facility]) Trazodone Hydrochloride 100 MG Oral Tabl et trazodone 100 mg tablet TAKE TWO TABLETS BY MOUTH AT BEDTIME trazodone 100 mg tablet TAKE TWO TABLETS BY MOUTH AT BEDTIME completed trazodone hyd rochloride 100 MG Oral Tablet LASHONDA ([facility]) citalopram completed Celexa AT [facility]) citalopram completed Celexa AT [facility]) pantoprazole 40 MG Delayed Release Oral Tablet pantoprazole 40 mg tablet,delayed release TAKE ONE TABLET BY MOUTH DAILY pantoprazole 40 mg tablet,delayed release TAKE ONE TABLET BY MOUTH DAILY completed pantoprazole 40 MG Delayed Release Oral Tablet [place] ([facility]) citalopram completed Celexa AT [facility]) Trulance 3 mg tablet TAKE ONE TABLET BY MOUTH EVERY DAY FOR IBS WITH CONSTIPATION [id number] completed pl ecanatide 3 MG Oral Tablet [Trulance] LASHONDA ([facility]) Phenazopyridine hydrochloride 100 MG Ora l Tablet phenazopyridine 100 mg tablet TAKE 1 TABLET THREE TIMES A DAY AFTER MEALS NEEDED FOR BURNING phenazopyridine 100 mg tablet TAKE 1 TABLET THREE TIMES A DAY AFTER MEALS NEEDED FOR BURNING completed phenazopyridine hydrochloride 100 MG Oral Tablet LASHONDA ([facility]) Mirtazapine 7.5 MG Oral Tablet mirtazapi ne 7.5 mg tablet TAKE ONE TABLET BY MOUTH AT BEDTIME mirtazapine 7.5 mg tablet TAKE ONE TABLET BY MOUTH AT BEDTIME completed mirtazapine 7. 5 MG Oral Tablet LASHONDA ([facility]) trazodone completed Oleptro AT [facility]) Trazodone Hydrochloride 100 MG Oral Tabl et trazodone 100 mg tablet TAKE TWO TABLETS BY MOUTH AT BEDTIME trazodone 100 mg tablet TAKE TWO TABLETS BY MOUTH AT BEDTIME completed trazodone hyd rochloride 100 MG Oral Tablet [place] ([facility]) Mirtazapine 7.5 MG Oral Tablet mirtazapi ne 7.5 mg tablet TAKE ONE TABLET BY MOUTH AT BEDTIME mirtazapine 7.5 mg tablet TAKE ONE TABLET BY MOUTH AT BEDTIME completed mirtazapine 7. 5 MG Oral Tablet [place] ([facility]) Mirtazapine 30 MG Oral Tablet mirtazapin e 30 mg tablet TAKE ONE TABLET BY MOUTH AT BEDTIME mirtazapine 30 mg tablet TAKE ONE TABLET BY MOUTH AT BEDTIME completed mirtazapine 30 MG Oral Ta blet [place] ([facility]) trazodone completed Oleptro AT [facility]) trazodone completed Oleptro AT [facility] ([facility]) Metronidazole 500 MG Oral Tablet metroni dazole 500 mg tablet TAKE ONE TABLET BY MOUTH THREE TIMES A DAY metronidazole 500 mg tablet TAKE ONE TAB LET BY MOUTH THREE TIMES A DAY completed metr onidazole 500 MG Oral Tablet [place] ([facility]) Lisinopril 10 MG Oral Tablet lisinopril 10 mg tablet Take 1 tablet every day by oral route. lisinopril 10 mg tablet Take 1 tablet every day by oral route. 1 completed lisinopril 10 MG Oral Tablet [place] ([facility]) fluticasone 113 mcg-salmeterol 14 mcg/ac tuation breath activated powdr INHALE ONE PUFF BY MOUTH EVERY 12 HOURS [id number] comp leted 60 ACTUAT fluticasone propionate 0.113 MG/ACTUAT / salmeterol 0.014 MG/ACTUAT Dry Powder Inhaler SPRUCE HEAD ([facility]) Mirtazapine 30 MG Oral Tablet mirtazapin e 30 mg tablet TAKE ONE TABLET BY MOUTH AT BEDTIME mirtazapine 30 mg tablet TAKE ONE TABLET BY MOUTH AT BEDTIME completed mirtazapine 30 MG Oral Ta blet [place] ([facility]) Trazodone Hydrochloride 100 MG Oral Tabl et trazodone 100 mg tablet TAKE TWO TABLETS BY MOUTH AT BEDTIME trazodone 100 mg tablet TAKE TWO TABLETS BY MOUTH AT BEDTIME completed trazodone hyd rochloride 100 MG Oral Tablet LASHONDA ([facility]) tizanidine 4 MG Oral Tablet tizanidine 4 mg tablet TAKE ONE TABLET BY MOUTH THREE TIMES A DAY NEEDED tizanidine 4 mg tablet TAKE ONE TABLET B Y MOUTH THREE TIMES A DAY NEEDED completed tizanidine 4 MG Oral Tablet LASHONDA ([facility]) Mirtazapine 15 MG Oral Tablet mirtazapin e 15 mg tablet TAKE ONE TABLET BY MOUTH AT BEDTIME mirtazapine 15 mg tablet TAKE ONE TABLET BY MOUTH AT BEDTIME completed mirtazapine 15 MG Oral Ta blet LASHONDA ([facility]) Lisinopril 10 MG Oral Tablet lisinopril 10 mg tablet Take 1 tablet every day by oral route. lisinopril 10 mg tablet Take 1 tablet every day by oral route. 1 completed lisinopril 10 MG Oral Tablet LASHONDA ([facility]) tizanidine 4 MG Oral Tablet tizanidine 4 mg tablet TAKE ONE TABLET BY MOUTH THREE TIMES A DAY NEEDED tizanidine 4 mg tablet TAKE ONE TABLET B Y MOUTH THREE TIMES A DAY NEEDED completed tizanidine 4 MG Oral Tablet LASHONDA ([facility]) Lisinopril 10 MG Oral Tablet lisinopril 10 mg tablet Take 1 tablet every day by oral route. lisinopril 10 mg tablet Take 1 tablet every day by oral route. 1 completed lisinopril 10 MG Oral Tablet LASHONDA ([facility]) Naproxen 500 MG Oral Tablet naproxen 500 mg tablet TAKE ONE TABLET BY MOUTH TWICE A DAY NEEDED naproxen 500 mg tablet TAKE ONE TABLET B Y MOUTH TWICE A DAY NEEDED completed naproxen 500 MG Oral Tablet LASHONDA ([facility]) Trazodone Hydrochloride 100 MG Oral Tabl et trazodone 100 mg tablet TAKE TWO TABLETS BY MOUTH AT BEDTIME trazodone 100 mg tablet TAKE TWO TABLETS BY MOUTH AT BEDTIME completed trazodone hyd rochloride 100 MG Oral Tablet LASHONDA ([facility]) buspirone completed Buspar ATH ANGELO ([facility]) Mirtazapine 15 MG Oral Tablet mirtazapin e 15 mg tablet TAKE ONE TABLET BY MOUTH AT BEDTIME mirtazapine 15 mg tablet TAKE ONE TABLET BY MOUTH AT BEDTIME completed mirtazapine 15 MG Oral Ta blet LASHONDA ([facility]) Mirtazapine 7.5 MG Oral Tablet mirtazapi ne 7.5 mg tablet TAKE ONE TABLET BY MOUTH AT BEDTIME mirtazapine 7.5 mg tablet TAKE ONE TABLET BY MOUTH AT BEDTIME completed mirtazapine 7. 5 MG Oral Tablet LASHONDA ([facility]) Mirtazapine 15 MG Oral Tablet mirtazapin e 15 mg tablet TAKE ONE TABLET BY MOUTH AT BEDTIME mirtazapine 15 mg tablet TAKE ONE TABLET BY MOUTH AT BEDTIME completed mirtazapine 15 MG Oral Ta blet LASHONDA ([facility]) Mirtazapine 30 MG Oral Tablet mirtazapin e 30 mg tablet TAKE ONE TABLET BY MOUTH AT BEDTIME mirtazapine 30 mg tablet TAKE ONE TABLET BY MOUTH AT BEDTIME completed mirtazapine 30 MG Oral Ta blet LASHONDA ([facility]) Phenazopyridine hydrochloride 100 MG Ora l Tablet phenazopyridine 100 mg tablet TAKE 1 TABLET THREE TIMES A DAY AFTER MEALS NEEDED FOR BURNING phenazopyridine 100 mg tablet TAKE 1 TABLET THREE TIMES A DAY AFTER MEALS NEEDED FOR BURNING completed phenazopyridine hydrochloride 100 MG Oral Tablet LASHONDA ([facility]) pantoprazole 40 MG Delayed Release Oral Tablet pantoprazole 40 mg tablet,delayed release TAKE ONE TABLET BY MOUTH DAILY pantoprazole 40 mg tablet,delayed release TAKE ONE TABLET BY MOUTH DAILY completed pantoprazole 40 MG Delayed Release Oral Tablet LASHONDA ([facility]) Mirtazapine 30 MG Oral Tablet mirtazapin e 30 mg tablet TAKE ONE TABLET BY MOUTH AT BEDTIME mirtazapine 30 mg tablet TAKE ONE TABLET BY MOUTH AT BEDTIME completed mirtazapine 30 MG Oral Ta blet LASHONDA ([facility]) Phenazopyridine hydrochloride 100 MG Ora l Tablet phenazopyridine 100 mg tablet TAKE 1 TABLET THREE TIMES A DAY AFTER MEALS NEEDED FOR BURNING phenazopyridine 100 mg tablet TAKE 1 TABLET THREE TIMES A DAY AFTER MEALS NEEDED FOR BURNING completed phenazopyridine hydrochloride 100 MG Oral Tablet LASHONDA ([facility]) fluticasone 113 mcg-salmeterol 14 mcg/ac tuation breath activated powdr INHALE ONE PUFF BY MOUTH EVERY 12 HOURS [id number] comp leted 60 ACTUAT fluticasone propionate 0.113 MG/ACTUAT / salmeterol 0.014 MG/ACTUAT Dry Powder Inhaler LASHONDA ([facility]) Mirtazapine 30 MG Oral Tablet mirtazapin e 30 mg tablet TAKE ONE TABLET BY MOUTH AT BEDTIME mirtazapine 30 mg tablet TAKE ONE TABLET BY MOUTH AT BEDTIME completed mirtazapine 30 MG Oral Ta blet LASHONDA ([facility]) Trulance 3 mg tablet TAKE ONE TABLET BY MOUTH EVERY DAY FOR IBS WITH CONSTIPATION [id number] completed pl ecanatide 3 MG Oral Tablet [Trulance] LASHONDA ([facility]) buspirone hydrochloride 30 MG Oral Table t buspirone 30 mg tablet TAKE ONE TABLET BY MOUTH TWICE A DAY buspirone 30 mg tablet TAKE ONE TABLET B Y MOUTH TWICE A DAY completed buspirone hydroc hloride 30 MG Oral Tablet LASHONDA ([facility]) buspirone completed Buspar ATH ANGELO ([facility]) Trazodone Hydrochloride 100 MG Oral Tabl et trazodone 100 mg tablet TAKE TWO TABLETS BY MOUTH AT BEDTIME trazodone 100 mg tablet TAKE TWO TABLETS BY MOUTH AT BEDTIME completed trazodone hyd rochloride 100 MG Oral Tablet LASHONDA ([facility]) Mirtazapine 30 MG Oral Tablet mirtazapin e 30 mg tablet TAKE ONE TABLET BY MOUTH AT BEDTIME mirtazapine 30 mg tablet TAKE ONE TABLET BY MOUTH AT BEDTIME completed mirtazapine 30 MG Oral Ta blet LASHONDA ([facility]) quetiapine 50 MG Oral Tablet quetiapine 50 mg tablet TAKE ONE TABLET BY MOUTH AT BEDTIME quetiapine 50 mg tablet TAKE ONE TABLET BY MOUTH AT BEDTIME completed quetiapine 50 MG Oral Tablet LASHONDA ([facility]) Mirtazapine 30 MG Oral Tablet mirtazapin e 30 mg tablet TAKE ONE TABLET BY MOUTH AT BEDTIME mirtazapine 30 mg tablet TAKE ONE TABLET BY MOUTH AT BEDTIME completed mirtazapine 30 MG Oral Ta blet LASHONDA ([facility]) Acetaminophen 325 MG Oral Tablet acetami nophen 325 mg tablet TAKE ONE TABLET BY MOUTH EVERY 4 HOURS NEEDED FOR PAIN acetaminophen 325 mg tablet TAKE ONE TABLET BY MOUTH EVERY 4 HOURS NEEDED FOR PAIN completed acetaminophen 325 MG Oral Tablet LASHONDA ([facility]) Trulance 3 mg tablet TAKE ONE TABLET BY MOUTH EVERY DAY FOR IBS WITH CONSTIPATION [id number] completed pl ecanatide 3 MG Oral Tablet [Trulance] LASHONDA ([facility]) Trazodone Hydrochloride 100 MG Oral Tabl et trazodone 100 mg tablet TAKE TWO TABLETS BY MOUTH AT BEDTIME trazodone 100 mg tablet TAKE TWO TABLETS BY MOUTH AT BEDTIME completed trazodone hyd rochloride 100 MG Oral Tablet LASHONDA ([facility]) Mirtazapine 7.5 MG Oral Tablet mirtazapi ne 7.5 mg tablet TAKE ONE TABLET BY MOUTH AT BEDTIME mirtazapine 7.5 mg tablet TAKE ONE TABLET BY MOUTH AT BEDTIME completed mirtazapine 7. 5 MG Oral Tablet [place] ([facility]) pantoprazole 40 MG Delayed Release Oral Tablet pantoprazole 40 mg tablet,delayed release TAKE ONE TABLET BY MOUTH DAILY pantoprazole 40 mg tablet,delayed release TAKE ONE TABLET BY MOUTH DAILY completed pantoprazole 40 MG Delayed Release Oral Tablet LASHONDA ([facility]) Mirtazapine 7.5 MG Oral Tablet mirtazapi ne 7.5 mg tablet TAKE ONE TABLET BY MOUTH AT BEDTIME mirtazapine 7.5 mg tablet TAKE ONE TABLET BY MOUTH AT BEDTIME completed mirtazapine 7. 5 MG Oral Tablet LASHONDA ([facility]) Trulance 3 mg tablet TAKE ONE TABLET BY MOUTH EVERY DAY FOR IBS WITH CONSTIPATION [id number] completed pl ecanatide 3 MG Oral Tablet [Trulance] LASHONDA ([facility]) buspirone hydrochloride 30 MG Oral Table t buspirone 30 mg tablet TAKE ONE TABLET BY MOUTH TWICE A DAY buspirone 30 mg tablet TAKE ONE TABLET B Y MOUTH TWICE A DAY completed buspirone hydroc hloride 30 MG Oral Tablet LASHONDA ([facility]) Insurance Providers Payer name Policy type / Coverage type Policy ID Covered libertarian ID Covered libertarian's relationship to wilson Policy Wilson Plan Information Medicaid Dental S [id number] S [id number] Medicaid S [id number] S [id number] [facility] COMMUNITY [facility]AN [facility] [id number] Managed Care - [facility] [employer] P [id number] S [id number] UNHC COMMUNITY PLAN MCDHMO [id number] SP [id number] D Managed Care United Healthcare P [id number] S [id number] [facility] I [id number] Self [id number] Medicaid S [id number] S [id number] UNHC COMMUNITY PLAN MCDHMO [id number] SP [id number] [facility] MEDICAID [id number] Radha [id number] Managed Care - [facility] P [id number] S [id number] UNHC COMMUNITY PLAN MCDHMO [id number] SP [id number] [facility] Comm Plan Medicaid F [id number] SELF [id number] Medicaid S [id number] S [id number] Managed Care - [facility] Community Plan P [id number] S [id number] [facility] Comm Plan Medicaid F [id number] SELF [id number] UNHC COMMUNITY PLAN MCDHMO [id number] SP [id number] Managed Care - [facility] P [id number] S [id number] Managed Care - [facility] Community Plan P [id number] S [id number] [facility] [id number] SP [id number] UNHC COMMUNITY PLAN MCDHMO [id number] SP [id number] MEDICAID [id number] UNHC COMMUNITY PLAN MCDHMO [id number] SP [id number] [facility] O [id number] S [id number] [facility](MCA[facility]) O [id number] S [id number] EMEDNY [id number] SP [id number] [facility] [place] Health Maintenance Organization (HMO) [id number] Self [id number] ANSI-Medicaid [id number] ANSI-Medicaid [id number] ANSI-Medicaid [id number] ANSI-Medicaid [id number] ANSI-Medicaid [id number] ANSI-Medicaid [id number] ANS-Medicaid [id number] [facility] Health Maintenance Organization (HMO) [id number] Self [id number] ANSI-Medicaid [id number] ANSI-Medicaid [id number] [facility] [place] MEDICAID PI PI ANS-Medicaid [id number] [facility] [id number] SP [id number] Problems, Conditions, and Diagnoses Code Display Name Description Problem Type Effective Dates Data Source(s) Z63.4 Disappearance and of family member Uncompl icated Bereavement Condition 03/28/2021 12:00:00 AM EDT [facility] ([facility]) F43.8 Other reactions to severe stress Other S pecified Trauma- and Stressor- Related Disorder Condition 03/28/2021 12:00:00 AM EDT [facility] ([facility]) F33.3 Major depressive disorder, recurrent, se reyna with psychotic symptoms Major Depressive Disorder, Recurrent episode, With psychotic features Condition 03/28/2021 12:00:00 AM EDT [facility] ([facility]) F17.200 Tobacco use Tobacco use disorder Problem 03/07/2021 12: 00:00 AM EDT eCW1 ([facility]) N95.2 [id number] Atrophic vaginitis Problem 11/10/2020 12:00: 00 AM EDT eCW1 ([facility]) Surgeries/Procedures Procedure Description Date Indications Data Source(s) OFFICE OUTPATIENT VISIT 15 MINUTES 03/28 12:00:00 AM EDT - 03/28/2021 12:00:00 AM EDT [facility] ([facility]) OFFICE OUTPATIENT VISIT 15 MINUTES 03/28/2021 12:00:00 AM EDT [facility] ([facility]) Extended Individual Psychotherapy - 45 min 03/24/2021 12:00:00 AM EDT - 03/24/2021 12:00:00 AM EDT [facility] ([facility]) Extended Individual Psychotherapy - 45 min 12:00:00 AM EDT [facility] ([facility]) OFFICE OUTPATIENT VISIT 25 MINUTES 03/10/2021 12:00:00 AM EDT [facility] ([facility]) TOBACCO USE CESSATION INTERMEDIATE 3-10 MINUTES 2020 12:00:00 AM EDT [facility] ([facility]) Extended Individual Psychotherapy - 45 min 03/07/2021 12:00:00 AM EDT - 03/07/2021 12:00:00 AM EDT [facility] ([facility]) Extended Individual Psychotherapy - 45 min 12:00:00 AM EDT [facility] ([facility]) OFFICE OUTPATIENT VISIT 15 MINUTES 02/16 12:00:00 AM EDT - 02/16/2021 12:00:00 AM EDT [facility] ([facility]) OFFICE OUTPATIENT VISIT 15 MINUTES 02/16/2021 12:00:00 AM EDT [facility] ([facility]) Extended Individual Psychotherapy - 45 min 02/04/2021 12:00:00 AM EDT - 02/04/2021 12:00:00 AM EDT [facility] ([facility]) Extended Individual Psychotherapy - 45 min 12:00:00 AM EDT [facility] ([facility]) OFFICE OUTPATIENT VISIT 25 MINUTES 01/20/2021 12:00:00 AM EDT MED[facility] ([facility], ) TOBACCO USE CESSATION INTERMEDIATE 3-10 MINUTES 2020 12:00:00 AM EDT [facility] ([facility], ) Extended Individual Psychotherapy - 45 min 01/06/2021 12:00:00 AM EDT - 01/06/2021 12:00:00 AM EDT [facility] ([facility]) Extended Individual Psychotherapy - 45 min 12:00:00 AM EDT [facility] ([facility]) Bronchospasm Evaluation 12/31/2020 12:00:00 AM EDT MED[facility] ([facility], ) Plethysmography Determination Lung Volumes & Per Airway Resi st 12/31/2020 12:00:00 AM EDT [facility] ([facility] ) DIFFUSING CAPACITY 12/31/2020 12:00:00 AM EDT MED[facility] ([facility], ) OFFICE OUTPATIENT VISIT 15 MINUTES 12/09 12:00:00 AM EDT - 12/09/2020 12:00:00 AM EDT [facility] ([facility]) OFFICE OUTPATIENT VISIT 15 MINUTES 12/09/2020 12:00:00 AM EDT [facility] ([facility]) Extended Individual Psychotherapy - 45 min 12/08/2020 12:00:00 AM EDT - 12/08/2020 12:00:00 AM EDT [facility] ([facility]) Extended Individual Psychotherapy - 45 min 12:00:00 AM EDT [facility] ([facility]) Spirometry 12/07/2020 12:00:00 AM EDT M EDENT ([facility], ) OFFICE OUTPATIENT NEW 45 MINUTES 12/07/2020 12:00:00 A M EDT MED[facility] ([facility], ) TOBACCO USE CESSATION INTERMEDIATE 3-10 MINUTES 2020 12:00:00 AM EDT [facility] ([facility], ) Extended Individual Psychotherapy - 45 min 11/16/2020 12:00:00 AM EDT - 11/16/2020 12:00:00 AM EDT [facility] ([facility]) Extended Individual Psychotherapy - 45 min 12:00:00 AM EDT [facility] ([facility]) uro PVR (Post Voiding Residual) Bladder Scan 12:00:00 AM EDT eCW1 ([facility]) OFFICE OUTPATIENT VISIT 15 MINUTES 10/28 12:00:00 AM EDT - 10/28/2020 12:00:00 AM EDT [facility] ([facility]) OFFICE OUTPATIENT VISIT 15 MINUTES 10/28/2020 12:00:00 AM EDT [facility] ([facility]) XR, chest, 2 view 10/19/2020 12:00:00 [facility], 2 view 10/19/2020 12:00:00 AM EDT [facility] XR, chest, 2 view 10/19/2020 12:00:00 AM EDT LASH[facility]) XR, chest, 2 view 10/19/2020 12:00:00 AM EDT [facility] XR, chest, 2 view 10/19/2020 12:00:00 AM EDT [facility] OFFICE OUTPATIENT VISIT 15 MINUTES 10/14 12:00:00 AM EDT - 10/14/2020 12:00:00 AM EDT [facility] ([facility]) OFFICE OUTPATIENT VISIT 15 MINUTES 10/14/2020 12:00:00 AM EDT [facility] ([facility]) MRI, lumbar spine, w/o contrast 09/20/2020 12:00:00 AM EDT LASH[facility]DA ([facility]) Extended Individual Psychotherapy - 45 min 09/07/2020 12:00:00 AM EDT - 09/07/2020 12:00:00 AM EDT [facility] ([facility]) Extended Individual Psychotherapy - 45 min 12:00:00 AM EDT [facility] ([facility]) MHC Telemed E/M Lvl 3--Est pt 09/01/2020 12:00:00 AM EDT - 09/01/2020 12:00:00 AM EDT [facility] ([facility]) MHC Telemed E/M Lvl 3--Est pt 09/01/2020 12:00:00 AM E DT [facility] ([facility]) [id number]"Psychotherapy 12:00:00 AM EDT - 08/17/2020 12:00:00 AM EDT [facility] ([facility]) [id number]"Psychotherapy 08/17/2020 12:00:00 AM EDT [facility] ([facility]) [id number]"Psychotherapy 12:00:00 AM EST - 08/02/2020 12:00:00 AM EST [facility] ([facility]) [id number]"Psychotherapy 08/02/2020 12:00:00 AM EST [facility] ([facility]) Extended Individual Psychotherapy - 45 min 07/14/2020 12:00:00 AM EST - 07/14/2020 12:00:00 AM EST [facility] ([facility]) Extended Individual Psychotherapy - 45 min 12:00:00 AM EST [facility] ([facility]) Extended Individual Psychotherapy - 45 min 06/28/2020 12:00:00 AM EST - 06/28/2020 12:00:00 AM EST [facility] ([facility]) Extended Individual Psychotherapy - 45 min 12:00:00 AM EST [facility] ([facility]) OFFICE OUTPATIENT VISIT 15 MINUTES 06/28 12:00:00 AM EST - 06/28/2020 12:00:00 AM EST [facility] ([facility]) Extended Individual Psychotherapy - 45 min 06/09/2020 12:00:00 AM EST - 06/09/2020 12:00:00 AM EST [facility] ([facility]) Extended Individual Psychotherapy - 45 min 12:00:00 AM EST [facility] ([facility]) OFFICE OUTPATIENT VISIT 15 MINUTES 05/24/2020 12:00:00 AM EST [facility] ([facility]) Extended Individual Psychotherapy - 45 min 05/17/2020 12:00:00 AM EST - 05/17/2020 12:00:00 AM EST [facility] ([facility]) Extended Individual Psychotherapy - 45 min 0 12:00:00 AM EST [facility] ([facility]) Extended Individual Psychotherapy - 45 min 04/30/2020 12:00:00 AM EST - 04/30/2020 12:00:00 AM EST [facility] ([facility]) Extended Individual Psychotherapy - 45 min 0 12:00:00 AM EST [facility] ([facility]) OFFICE OUTPATIENT VISIT 15 MINUTES 04/07 12:00:00 AM EST - 04/07/2020 12:00:00 AM EST [facility] ([facility]) OFFICE OUTPATIENT VISIT 15 MINUTES 04/07/2020 12:00:00 AM EST [facility] ([facility]) Extended Individual Psychotherapy - 45 min 03/15/2020 12:00:00 AM EDT - 03/15/2020 12:00:00 AM EDT [facility] ([facility]) Extended Individual Psychotherapy - 45 min 0 12:00:00 AM EDT [facility] ([facility]) MHC Telemed E/M Lvl 3--Est pt 03/08/2020 12:00:00 AM EDT - 03/08/2020 12:00:00 AM EDT [facility] ([facility]) MHC Telemed E/M Lvl 3--Est pt 03/08/2020 12:00:00 AM E DT [facility] ([facility]) Results ID Date Data Source Basic Metabolic Profile (BMP) 03/07/2021 12:00:00 AM EDT eCW 1 ([facility]) Name Value Range Interpretation Code Description Data Sharmila rce(s) Supporting Document(s) 38.5 >51 GLOMERULAR FILTRATION RATE eCW 1 ([facility]) 147 70-100 GLUCOSE, FASTING eCW1 ([facility]) 1.49 0.55-1.30 CREATININE FOR GFR eCW1 ([facility]) 22 7-18 BLOOD UREA NITROGEN eCW1 ([facility]) 8.9 8.5-10.1 CALCIUM LEVEL eCW1 ([facility]) 30 21-32 CARBON DIOXIDE LEVEL eCW1 ([facility] to [facility]) 141 136-145 SODIUM LEVEL eCW1 ([facility]) 3.6 3.5-5.1 POTASSIUM SERUM eCW1 ([facility]) 106 98-107 CHLORIDE LEVEL eCW1 ([facility]) ID Date Data Source [id number] 02/07/2021 12:00:00 AM EDT [facility] ([facility]) Name Value Range Interpretation Code Description Data Shamrila rce(s) Supporting Document(s) ID Date Data Source [id number] 02/07/2021 12:00:00 AM EDT [facility] ([facility]) Name Value Range Interpretation Code Description Data Sharmila rce(s) Supporting Document(s) SARS-CoV-2 (COVID-19) RNA [Presence] in Respiratory specimen by NICOLASA with probe detection negative negative Sars-cov-2 [facility] ([facility]) ID Date Data Source [id number] 02/07/2021 12:00:00 AM EDT [facility]DA ([facility]) Name Value Range Interpretation Code Description Data Sharmila rce(s) Supporting Document(s) ID Date Data Source [id number] 02/07/2021 12:00:00 AM EDT [facility] Name Value Range Interpretation Code Description Data Sharmila rce(s) Supporting Document(s) SARS-CoV-2 NEGATIVE [facility] This lab was ordered by [facility] and reported by [employer]. ID Date Data Source [id number] 02/07/2021 12:00:00 AM EDT [facility] ([facility]) Name Value Range Interpretation Code Description Data Sharmila rce(s) Supporting Document(s) SARS-CoV-2 (COVID-19) RNA [Presence] in Respiratory specimen by NICOLASA with probe detection negative negative Sars-cov-2 [facility] ([facility]) ID Date Data Source [id number] 02/07/2021 12:00:00 AM EDT [facility] ([facility]) Name Value Range Interpretation Code Description Data Sharmila rce(s) Supporting Document(s) ID Date Data Source [id number] 02/07/2021 12:00:00 AM EDT [facility] ([facility]) Name Value Range Interpretation Code Description Data Sharmila rce(s) Supporting Document(s) SARS-CoV-2 (COVID-19) RNA [Presence] in Respiratory specimen by NICOLASA with probe detection negative negative Sars-cov-2 [facility] ([facility]) ID Date Data Source [id number] 02/07/2021 12:00:00 AM EDT [facility] ([facility]) Name Value Range Interpretation Code Description Data Sharmila rce(s) Supporting Document(s) ID Date Data Source [id number] 02/07/2021 12:00:00 AM [facility] Name Value Range Interpretation Code Description Data Sharmila rce(s) Supporting Document(s) SARS-CoV-2 (COVID-19) RNA [Presence] in Respiratory specimen by NICOLASA with probe detection negative negative Sars-cov-2 [facility]) ID Date Data Source [id number] 02/02/2021 12:00:00 AM EDT [facility]) Name Value Range Interpretation Code Description Data Sharmila rce(s) Supporting Document(s) ID Date Data Source [id number] 02/02/2021 12:00:00 AM EDT [facility]) Name Value Range Interpretation Code Description Data Sharmila rce(s) Supporting Document(s) ID Date Data Source [id number] 02/02/2021 12:00:00 AM EDT [facility]) Name Value Range Interpretation Code Description Data Sharmila rce(s) Supporting Document(s) ID Date Data Source [id number] 02/02/2021 12:00:00 AM EDT [facility]) Name Value Range Interpretation Code Description Data Sharmila rce(s) Supporting Document(s) ID Date Data Source [id number] 01/21/2021 12:00:00 AM EDT [facility]) Name Value Range Interpretation Code Description Data Sharmila rce(s) Supporting Document(s) SARS-CoV-2 (COVID-19) RNA [Presence] in Respiratory specimen by NICOLASA with probe detection negative negative Sars-cov-2 [facility]) ID Date Data Source [id number] 01/21/2021 12:00:00 AM EDT [place] ([facility]) Name Value Range Interpretation Code Description Data Sharmila rce(s) Supporting Document(s) ID Date Data Source [id number] 01/21/2021 12:00:00 AM EDT [place] ([facility]) Name Value Range Interpretation Code Description Data Sharmila rce(s) Supporting Document(s) SARS-CoV-2 (COVID-19) RNA [Presence] in Respiratory specimen by NICOLASA with probe detection negative negative Sars-cov-2 [facility] ([facility]) ID Date Data Source [id number] 01/21/2021 12:00:00 AM EDT [place] ([facility]) Name Value Range Interpretation Code Description Data Sharmila rce(s) Supporting Document(s) ID Date Data Source [id number] 01/21/2021 12:00:00 AM EDT [place] ([facility]) Name Value Range Interpretation Code Description Data Sharmila rce(s) Supporting Document(s) SARS-CoV-2 (COVID-19) RNA [Presence] in Respiratory specimen by NICOLASA with probe detection negative negative Sars-cov-2 [facility] ([facility]) ID Date Data Source [id number] 01/21/2021 12:00:00 AM EDT [place] ([facility]) Name Value Range Interpretation Code Description Data Sharmila rce(s) Supporting Document(s) ID Date Data Source [id number] 01/21/2021 12:00:00 AM EDT [place] ([facility]) Name Value Range Interpretation Code Description Data Sharmila rce(s) Supporting Document(s) SARS-CoV-2 (COVID-19) RNA [Presence] in Respiratory specimen by NICOLASA with probe detection negative negative Sars-cov-2 [facility] ([facility]) ID Date Data Source [id number] 01/21/2021 12:00:00 AM EDT [place] ([facility]) Name Value Range Interpretation Code Description Data Sharmila rce(s) Supporting Document(s) ID Date Data Source [id number] 01/21/2021 12:00:00 AM EDT [facility] Name Value Range Interpretation Code Description Data Sharmila rce(s) Supporting Document(s) SARS-CoV-2 NEGATIVE [facility] This lab was ordered by [facility] and reported by [employer]. ID Date Data Source [id number] 01/21/2021 12:00:00 AM EDT [place] ([facility]) Name Value Range Interpretation Code Description Data Sharmila rce(s) Supporting Document(s) SARS-CoV-2 (COVID-19) RNA [Presence] in Respiratory specimen by NICOLASA with probe detection negative negative Sars-cov-2 [place] ([facility]) ID Date Data Source [id number] 01/21/2021 12:00:00 AM EDT [place] ([facility]) Name Value Range Interpretation Code Description Data Sharmila rce(s) Supporting Document(s) ID Date Data Source [id number] 01/21/2021 12:00:00 AM EDT [place] ([facility]) Name Value Range Interpretation Code Description Data Sharmila rce(s) Supporting Document(s) SARS-CoV-2 (COVID-19) RNA [Presence] in Respiratory specimen by NICOLASA with probe detection negative negative Sars-cov-2 [facility] ([facility]) ID Date Data Source [id number] 01/21/2021 12:00:00 AM EDT [place] ([facility]) Name Value Range Interpretation Code Description Data Sharmila rce(s) Supporting Document(s) ID Date Data Source [id number] 12/31/2020 03:07:00 PM EDT [facility] ([facility]) Name Value Range Interpretation Code Description Data Sharmila rce(s) Supporting Document(s) Misc Laboratory test result MED[facility] ([facility]) ID Date Data Source [id number] 12/07/2020 01:12:00 PM EDT [facility] ([facility]) Name Value Range Interpretation Code Description Data Sharmila rce(s) Supporting Document(s) PDFReport Laboratory test result MEDENT ([facility]) FVC-Pred 2.84 L MED[facility] ([facility]) FVC-%Pred-Pre 73 L MEDENT ([facility]) FVC-Pre 2.08 L [facility] ([facility]) FVC-LLN 2.25 L [facility] ([facility]) Fev1-Pred 2.23 L [facility] ([facility]) Fev1-Pre 1.56 L [facility] ([facility]) Fev1-LLN 1.73 L [facility] ([facility]) Fev1-%Pred-Pre 69 L MEDENT ([facility]) Fev6-Pred 2.76 L [facility] ([facility]) Fev6-Pre 2.08 L [facility] ([facility]) Fev6-%Pred-Pre 75 L [facility] ([facility]) Fev6-LLN 2.18 L [facility] ([facility]) Ido5kxm-Znic 79 % [facility] ([facility]) Xwz9oxr-Dkj 75 % [facility] ([facility]) Yef0ugq-Xqzk 97 % [facility] ([facility]) Mur2xbe-SDC 69 % [facility] ([facility]) Stj5sun-%Pred-Pre 94 % [facility] ([facility]) Xiy0tgv-%Pred-Pre 103 % [facility] ([facility]) Qdl2vtz-Xmg 100 % MEDENT ([facility], ) FEFMax-Pred 5.80 L/E/sec MED[facility] ([facility]) FEFMax-LLN 4.34 L/E/sec MEDENT ([facility]) FEFMax-%Pred-Pre 58 L/E/sec [facility] ([facility]) FEFMax-Pre 3.39 L/E/sec [facility] ([facility]) Byf5011-Dzuy 2.28 L/E/sec MED[facility] ([facility]) Fnn0807-Scl 1.20 L/E/sec [facility] ([facility]) Cjr8089-%Pred-Pre 52 L/E/sec [facility] ([facility]) Use8005-UFL 1.23 L/E/sec [facility] ([facility]) ExpTime-Pre 6.25 sec MED[facility] ([facility]) Lnc0kfs9-Ofmt 82 % MEDENT ([facility]) Ggw1piu3-OQU 73 % [facility] ([facility]) Dir5bkc8-%Pred-Pre 91 % [facility] ([facility]) Ego0uro7-Qgt 75 % [facility] ([facility]) ID Date Data Source Microscopic Only Urine (Auto) 11/10/2020 12:00:00 AM EDT eCW 1 ([facility]) Name Value Range Interpretation Code Description Data Sharmila rce(s) Supporting Document(s) 4 0-3 RBC, URINE AUTO eCW1 ([facility]) 3 0-3 WBC, URINE AUTO eCW1 ([facility]) NEGATIVE NEGATIVE BACTERIA, URINE AUTO eCW1 ([facility]) SMALL NEGATIVE MUCUS, URINE eCW1 ([facility]) 5 0-1 HYALINE CAST, URINE AUTO eCW1 ([facility]) 1 0-6 SQUAMOUS EPITHELIAL CELL UR AU eCW1 ([facility]) ID Date Data Source URINE CULTURE 11/10/2020 12:00:00 AM EDT eCW1 ([facility]) Name Value Range Interpretation Code Description Data Sharmila rce(s) Supporting Document(s) URINE CULTURE eCW1 ([facility]) ID Date Data Source [id number] 09/10/2020 09:18:00 AM EDT [facility]) Name Value Range Interpretation Code Description Data Sharmila rce(s) Supporting Document(s) ID Date Data Source [id number] 09/10/2020 09:18:00 AM EDT [facility]) Name Value Range Interpretation Code Description Data Sharmila rce(s) Supporting Document(s) ID Date Data Source [id number] 09/10/2020 09:18:00 AM EDT [facility]) Name Value Range Interpretation Code Description Data Sharmila rce(s) Supporting Document(s) ID Date Data Source [id number] 09/10/2020 09:18:00 AM EDT [facility]) Name Value Range Interpretation Code Description Data Sharmila rce(s) Supporting Document(s) ID Date Data Source [id number] 09/10/2020 09:18:00 AM EDT [facility]) Name Value Range Interpretation Code Description Data Sharmila rce(s) Supporting Document(s) ID Date Data Source [id number] 09/10/2020 09:16:00 AM EDT [facility]) Name Value Range Interpretation Code Description Data Sharmila rce(s) Supporting Document(s) appearance, urine rfx clear clear Appearance, Ur ine Rfx [facility]) color, urine rfx straw yellow Color, Urine Rfx AT [facility] ([facility]) pH,urine rfx 7.0 units 5.0-9.0 pH,urine Rfx [place] (No [facility]) specific gravity ur auto rfx 1.002-1.035 Specif ic [place] Ur Auto Rfx [place] ([facility]) protein, urine auto rfx negative negative Protein, Uri ne Auto Rfx [place] ([facility]) glucose, urine (UA) auto rfx negative negative Glucose , Urine (UA) Auto Rfx [place] ([facility]) ketone, urine auto rfx negative negative Ketone, Urine Auto Rfx [place] ([facility]) urobilinogen, urine auto rfx 0.2 mg/dL 0.0-2.0 Urobili nogen, Urine Auto Rfx [place] ([facility]) leukocyte esterase ur auto rfx negative negative Leukocyte Esterase Ur Auto Rfx [place] ([facility]) nitrite, urine auto rfx negative negative Nitrite, Uri ne Auto Rfx [place] ([facility]) bilirubin, urine auto rfx negative negative Bilirubin, Urine Auto Rfx [place] ([facility]) blood, urine blood rfx 1+ negative Above high normal Blood, Urine Blood Rfx [place] ([facility]) WBC, urine auto rfx 1 /hpf 0-3 WBC, Urine Auto Rfx [place] ([facility]) bacteria, urine auto rfx negative negative Bacteria, U rine Auto Rfx [place] ([facility]) RBC, urine auto rfx 1 /hpf 0-3 RBC, Urine Auto Rfx [place] ([facility]) squam epithelial cell ur aurfx 1 /hpf 0-6 Squam Epithelial Cell Ur Aurfx [place] ([facility]) hyaline cast, urine auto rfx 0 /lpf 0-1 Hyaline Cast, Urine Auto Rfx [place] ([facility]) ID Date Data Source [id number] 09/10/2020 09:16:00 AM EDT [place] ([facility]) Name Value Range Interpretation Code Description Data Sharmila rce(s) Supporting Document(s) appearance, urine rfx clear clear Appearance, Ur ine Rfx [place] ([facility]) color, urine rfx straw yellow Color, Urine Rfx AT [facility] ([facility]) pH,urine rfx 7.0 units 5.0-9.0 pH,urine Rfx [place] (No [facility]) specific gravity ur auto rfx 1.002-1.035 Specif ic [place] Ur Auto Rfx [place] ([facility]) protein, urine auto rfx negative negative Protein, Uri ne Auto Rfx [place] ([facility]) glucose, urine (UA) auto rfx negative negative Glucose , Urine (UA) Auto Rfx [place] ([facility]) ketone, urine auto rfx negative negative Ketone, Urine Auto Rfx [place] ([facility]) urobilinogen, urine auto rfx 0.2 mg/dL 0.0-2.0 Urobili nogen, Urine Auto Rfx [place] ([facility]) bilirubin, urine auto rfx negative negative Bilirubin, Urine Auto Rfx [place] ([facility]) leukocyte esterase ur auto rfx negative negative Leukocyte Esterase Ur Auto Rfx [place] ([facility]) nitrite, urine auto rfx negative negative Nitrite, Uri ne Auto Rfx [place] ([facility]) blood, urine blood rfx 1+ negative Above high normal Blood, Urine Blood Rfx [place] ([facility]) RBC, urine auto rfx 1 /hpf 0-3 RBC, Urine Auto Rfx [place] ([facility]) WBC, urine auto rfx 1 /hpf 0-3 WBC, Urine Auto Rfx [place] ([facility]) bacteria, urine auto rfx negative negative Bacteria, U rine Auto Rfx [place] ([facility]) squam epithelial cell ur aurfx 1 /hpf 0-6 Squam Epithelial Cell Ur Aurfx [place] ([facility]) hyaline cast, urine auto rfx 0 /lpf 0-1 Hyaline Cast, Urine Auto Rfx [place] ([facility]) ID Date Data Source [id number] 09/10/2020 09:16:00 AM EDT [place] ([facility]) Name Value Range Interpretation Code Description Data Sharmila rce(s) Supporting Document(s) appearance, urine rfx clear clear Appearance, Ur ine Rfx [place] ([facility]) color, urine rfx straw yellow Color, Urine Rfx AT [facility] ([facility]) pH,urine rfx 7.0 units 5.0-9.0 pH,urine Rfx [place] ([facility]) specific gravity ur auto rfx 1.002-1.035 Specif ic [place] Ur Auto Rfx [place] ([facility]) protein, urine auto rfx negative negative Protein, Uri ne Auto Rfx [place] ([facility]) glucose, urine (UA) auto rfx negative negative Glucose , Urine (UA) Auto Rfx [place] ([facility]) ketone, urine auto rfx negative negative Ketone, Urine Auto Rfx [place] ([facility]) urobilinogen, urine auto rfx 0.2 mg/dL 0.0-2.0 Urobili nogen, Urine Auto Rfx [place] ([facility]) bilirubin, urine auto rfx negative negative Bilirubin, Urine Auto Rfx [place] ([facility]) nitrite, urine auto rfx negative negative Nitrite, Uri ne Auto Rfx [place] ([facility]) WBC, urine auto rfx 1 /hpf 0-3 WBC, Urine Auto Rfx [place] ([facility]) blood, urine blood rfx 1+ negative Above high normal Blood, Urine Blood Rfx [place] ([facility]) leukocyte esterase ur auto rfx negative negative Leukocyte Esterase Ur Auto Rfx [place] ([facility]) bacteria, urine auto rfx negative negative Bacteria, U rine Auto Rfx [place] ([facility]) RBC, urine auto rfx 1 /hpf 0-3 RBC, Urine Auto Rfx [place] ([facility]) hyaline cast, urine auto rfx 0 /lpf 0-1 Hyaline Cast, Urine Auto Rfx [place] ([facility]) squam epithelial cell ur aurfx 1 /hpf 0-6 Squam Epithelial Cell Ur Aurfx [place] ([facility]) ID Date Data Source [id number] 09/10/2020 09:16:00 AM EDT [place] ([facility]) Name Value Range Interpretation Code Description Data Sharmila rce(s) Supporting Document(s) appearance, urine rfx clear clear Appearance, Ur ine Rfx [place] ([facility]) color, urine rfx straw yellow Color, Urine Rfx AT [facility] ([facility]) pH,urine rfx 7.0 units 5.0-9.0 pH,urine Rfx [place] (No [facility]) specific gravity ur auto rfx 1.002-1.035 Specif ic [place] Ur Auto Rfx [place] ([facility]) glucose, urine (UA) auto rfx negative negative Glucose , Urine (UA) Auto Rfx [place] ([facility]) protein, urine auto rfx negative negative Protein, Uri ne Auto Rfx [place] ([facility]) bilirubin, urine auto rfx negative negative Bilirubin, Urine Auto Rfx [place] ([facility]) ketone, urine auto rfx negative negative Ketone, Urine Auto Rfx [place] ([facility]) urobilinogen, urine auto rfx 0.2 mg/dL 0.0-2.0 Urobili nogen, Urine Auto Rfx [place] ([facility]) leukocyte esterase ur auto rfx negative negative Leukocyte Esterase Ur Auto Rfx [place] ([facility]) nitrite, urine auto rfx negative negative Nitrite, Uri ne Auto Rfx [place] ([facility]) blood, urine blood rfx 1+ negative Above high normal Blood, Urine Blood Rfx [place] ([facility]) WBC, urine auto rfx 1 /hpf 0-3 WBC, Urine Auto Rfx [place] ([facility]) RBC, urine auto rfx 1 /hpf 0-3 RBC, Urine Auto Rfx [place] ([facility]) bacteria, urine auto rfx negative negative Bacteria, U rine Auto Rfx [place] ([facility]) hyaline cast, urine auto rfx 0 /lpf 0-1 Hyaline Cast, Urine Auto Rfx [place] ([facility]) squam epithelial cell ur aurfx 1 /hpf 0-6 Squam Epithelial Cell Ur Aurfx [place] ([facility]) ID Date Data Source [id number] 09/10/2020 09:16:00 AM EDT [place] ([facility]) Name Value Range Interpretation Code Description Data Sharmila rce(s) Supporting Document(s) appearance, urine rfx clear clear Appearance, Ur ine Rfx [place] ([facility]) color, urine rfx straw yellow Color, Urine Rfx AT [facility] ([facility]) pH,urine rfx 7.0 units 5.0-9.0 pH,urine Rfx [place] (No [facility]) specific gravity ur auto rfx 1.002-1.035 Specif ic [place] Ur Auto Rfx [place] ([facility]) protein, urine auto rfx negative negative Protein, Uri ne Auto Rfx [place] ([facility]) ketone, urine auto rfx negative negative Ketone, Urine Auto Rfx [place] ([facility]) glucose, urine (UA) auto rfx negative negative Glucose , Urine (UA) Auto Rfx [place] ([facility]) bilirubin, urine auto rfx negative negative Bilirubin, Urine Auto Rfx [place] ([facility]) urobilinogen, urine auto rfx 0.2 mg/dL 0.0-2.0 Urobili nogen, Urine Auto Rfx [place] ([facility]) nitrite, urine auto rfx negative negative Nitrite, Uri ne Auto Rfx [place] ([facility]) leukocyte esterase ur auto rfx negative negative Leukocyte Esterase Ur Auto Rfx [place] ([facility]) blood, urine blood rfx 1+ negative Above high normal Blood, Urine Blood Rfx [place] ([facility]) WBC, urine auto rfx 1 /hpf 0-3 WBC, Urine Auto Rfx [place] ([facility]) bacteria, urine auto rfx negative negative Bacteria, U rine Auto Rfx [place] ([facility]) RBC, urine auto rfx 1 /hpf 0-3 RBC, Urine Auto Rfx [place] ([facility]) squam epithelial cell ur aurfx 1 /hpf 0-6 Squam Epithelial Cell Ur Aurfx [place] ([facility]) hyaline cast, urine auto rfx 0 /lpf 0-1 Hyaline Cast, Urine Auto Rfx [place] ([facility]) ID Date Data Source [id number] 09/10/2020 09:15:00 AM EDT [place] ([facility]) Name Value Range Interpretation Code Description Data Sharmila rce(s) Supporting Document(s) ID Date Data Source [id number] 09/10/2020 09:15:00 AM EDT [place] ([facility]) Name Value Range Interpretation Code Description Data Sharmila rce(s) Supporting Document(s) ID Date Data Source [id number] 09/10/2020 09:15:00 AM EDT [place] ([facility]) Name Value Range Interpretation Code Description Data Sharmila rce(s) Supporting Document(s) thyroid stimulating hormone 6.590 uIU/mL 0.358-3.740 Above high no rmal Thyroid Stimulating Hormone [place] ([facility]) ID Date Data Source [id number] 09/10/2020 09:15:00 AM EDT [place] ([facility]) Name Value Range Interpretation Code Description Data Sharmila rce(s) Supporting Document(s) thyroxine (T4) 9.2 ug/dL 4.5-12.0 Thyroxine (T4) [place] ([facility]) ID Date Data Source [id number] 09/10/2020 09:15:00 AM EDT [place] ([facility]) Name Value Range Interpretation Code Description Data Sharmila rce(s) Supporting Document(s) blood urea nitrogen 15 mg/dL 7-18 Blood Urea Nitro gen [place] ([facility]) glucose, fasting 90 mg/dL 70-100 Glucose, Fasting AT [facility] ([facility]) glomerular filtration rate > 60.0 >51 Glomerula r Filtration Rate [place] ([facility]) creatinine for GFR 0.94 mg/dL 0.55-1.30 Creatinine for GF R [place] ([facility]) sodium level 135 mEq/L 136-145 Below low normal Sodium Level [facility] ([facility]) potassium serum 3.6 mEq/L 3.5-5.1 Potassium Serum [facility] ([facility]) chloride level 100 mEq/L 98-107 Chloride Level [place] ([facility]) carbon dioxide level 31 mEq/L 21-32 Carbon Dioxide Level [place] ([facility]) calcium level 9.8 mg/dL 8.5-10.1 Calcium Level [place] ( [facility]) anion gap 4 mEq/L 8-16 Below low normal Anion Gap [place] ( [facility]) ID Date Data Source [id number] 09/10/2020 09:15:00 AM EDT [place] ([facility]) Name Value Range Interpretation Code Description Data Sharmila rce(s) Supporting Document(s) AST/SGOT 35 U/L 7-37 AST/SGOT [place] ([facility]) ALT/SGPT 29 U/L 12-78 ALT/SGPT [place] ([facility]) alkaline phosphatase 94 U/L 45-117 Alkaline Phosph atase [place] ([facility]) total protein 7.8 gm/dL 6.4-8.2 Total Protein [place] ( [facility]) bilirubin,total 0.7 mg/dL 0.2-1.0 Bilirubin,total [facility] ([facility]) bilirubin,direct 0.2 mg/dL 0.0-0.2 Bilirubin,direct AT [facility] ([facility]) albumin 4.4 gm/dL 3.2-5.2 Albumin [place] ([facility]) albumin/globulin ratio 1.2-2.2 Albumin/globu luis carlos Ratio [place] ([facility]) ID Date Data Source [id number] 09/10/2020 09:15:00 AM EDT [place] ([facility]) Name Value Range Interpretation Code Description Data Sharmila rce(s) Supporting Document(s) CPK creatine phosphokinase 690 U/L 26-192 Above high nor mal CPK Creatine Phosphokinase [place] ([facility]) CK-mb value mass 10.5 NG/mL <3.6 Above high normal CK-mb Value Mass [place] ([facility]) troponin I 0.02 NG/mL < 0.10 Troponin I [place] ([facility]) mb/CK relative index < or =4 mb/CK Relative Index [place] ([facility]) ID Date Data Source [id number] 09/10/2020 09:15:00 AM EDT [facility]) Name Value Range Interpretation Code Description Data Sharmila rce(s) Supporting Document(s) lactic acid sepsis protocol 0.8 mmol/L 0.4-2.0 Lactic A danie Sepsis Protocol [facility]) ID Date Data Source [id number] 09/10/2020 09:15:00 AM EDT [facility]) Name Value Range Interpretation Code Description Data Sharmila rce(s) Supporting Document(s) prothrombin time 12.8 seconds 12.5-14.3 Prothrombin Time [place] ([facility]) INR Inr [place] ([facility]) ID Date Data Source [id number] 09/10/2020 09:15:00 AM EDT [facility]) Name Value Range Interpretation Code Description Data Sharmila rce(s) Supporting Document(s) white blood count 5.3 10 4.0-10.0 White Blood Count [place] ([facility]) hemoglobin 12.8 g/dL 12.0-15.5 Hemoglobin [place] ([facility]) red blood count 3.97 10 4.00-5.40 Below low normal Red Blood Coun t [place] ([facility]) mean corpuscular volume 97.2 fL 80.0-96.0 Above high normal Mean Corpuscular Volume [place] ([facility]) hematocrit 38.6 % 36.0-47.0 Hematocrit [place] ([facility]) mean corpuscular HGB conc 33.2 g/dL 32.0-36.5 Mean Corpu scular HGB Conc [place] ([facility]) mean corpuscular hemoglobin 32.2 pg 27.0-33.0 Mean Cor puscular Hemoglobin [place] ([facility]) red cell distribution width 12.7 % 11.5-14.5 Red Cell Distribution Width [place] ([facility]) platelet count, automated 273 10 150-450 Platelet C ount, Automated [place] ([facility]) neutrophils % 67.0 % 36.0-66.0 Above high normal Neutrophils % A [place] ([facility]) lymph % 20.9 % 24.0-44.0 Below low normal Lymph % [place] ( [facility]) mono % 9.4 % 2.0-8.0 Above high normal [place] % [place] ([facility]) eos % 1.3 % 0.0-3.0 Eos % [place] ([facility]) baso % 0.8 % 0.0-1.0 Baso % [place] ([facility]) immature granulocyte % 0.6 % 0-3.0 Immature Gran ulocyte % [place] ([facility]) nucleated red blood cell % 0.0 % 0-0 Nucleated Red Blood Cell % [place] ([facility]) lymph # 1.1 10 1.5-5.0 Below low normal Lymph # [place] ( [facility]) neutrophils # 3.6 10 1.5-8.5 Neutrophils # [place] ( [facility]) mono # 0.5 10 0.0-0.8 [place] # [place] ([facility]) eos # 0.1 10 0.0-0.5 Eos # [place] ([facility]) baso # 0.0 10 0.0-0.2 Baso # [place] ([facility]) ID Date Data Source [id number] 09/10/2020 09:15:00 AM EDT [place] ([facility]) Name Value Range Interpretation Code Description Data Sharmila rce(s) Supporting Document(s) ID Date Data Source [id number] 09/10/2020 09:15:00 AM EDT [place] ([facility]) Name Value Range Interpretation Code Description Data Sharmila rce(s) Supporting Document(s) ID Date Data Source [id number] 09/10/2020 09:15:00 AM EDT [place] ([facility]) Name Value Range Interpretation Code Description Data Sharmila rce(s) Supporting Document(s) thyroid stimulating hormone 6.590 uIU/mL 0.358-3.740 Above high no rmal Thyroid Stimulating Hormone [place] ([facility]) ID Date Data Source [id number] 09/10/2020 09:15:00 AM EDT [facility]) Name Value Range Interpretation Code Description Data Sharmila rce(s) Supporting Document(s) thyroxine (T4) 9.2 ug/dL 4.5-12.0 Thyroxine (T4) [place] ([facility]) ID Date Data Source [id number] 09/10/2020 09:15:00 AM EDT [facility]) Name Value Range Interpretation Code Description Data Sharmila rce(s) Supporting Document(s) glucose, fasting 90 mg/dL 70-100 Glucose, Fasting AT [facility] ([facility]) blood urea nitrogen 15 mg/dL 7-18 Blood Urea Nitro gen [place] ([facility]) creatinine for GFR 0.94 mg/dL 0.55-1.30 Creatinine for GF R [place] ([facility]) glomerular filtration rate > 60.0 >51 Glomerula r Filtration Rate [place] ([facility]) potassium serum 3.6 mEq/L 3.5-5.1 Potassium Serum [facility] ([facility]) sodium level 135 mEq/L 136-145 Below low normal Sodium Level [facility] [place] ([facility]) anion gap 4 mEq/L 8-16 Below low normal Anion Gap [place] ( [facility]) carbon dioxide level 31 mEq/L 21-32 Carbon Dioxide Level [place] ([facility]) chloride level 100 mEq/L 98-107 Chloride Level [place] ([facility]) calcium level 9.8 mg/dL 8.5-10.1 Calcium Level [place] ( [facility]) ID Date Data Source [id number] 09/10/2020 09:15:00 AM EDT [place] ([facility]) Name Value Range Interpretation Code Description Data Sharmila rce(s) Supporting Document(s) AST/SGOT 35 U/L 7-37 AST/SGOT [place] ([facility]) ALT/SGPT 29 U/L 12-78 ALT/SGPT [place] ([facility]) alkaline phosphatase 94 U/L 45-117 Alkaline Phosph atase [place] ([facility]) bilirubin,direct 0.2 mg/dL 0.0-0.2 Bilirubin,direct AT [facility] ([facility]) bilirubin,total 0.7 mg/dL 0.2-1.0 Bilirubin,total [facility] ([facility]) albumin 4.4 gm/dL 3.2-5.2 Albumin [place] ([facility]) albumin/globulin ratio 1.2-2.2 Albumin/globu luis carlos Ratio [place] ([facility]) total protein 7.8 gm/dL 6.4-8.2 Total Protein [place] ( [facility]) ID Date Data Source [id number] 09/10/2020 09:15:00 AM EDT [place] ([facility]) Name Value Range Interpretation Code Description Data Sharmila rce(s) Supporting Document(s) CPK creatine phosphokinase 690 U/L 26-192 Above high nor mal CPK Creatine Phosphokinase [place] ([facility]) CK-mb value mass 10.5 NG/mL <3.6 Above high normal CK-mb Value Mass [place] ([facility]) troponin I 0.02 NG/mL < 0.10 Troponin I [place] ([facility]) mb/CK relative index < or =4 mb/CK Relative Index [place] ([facility]) ID Date Data Source [id number] 09/10/2020 09:15:00 AM EDT [facility]) Name Value Range Interpretation Code Description Data Sharmila rce(s) Supporting Document(s) lactic acid sepsis protocol 0.8 mmol/L 0.4-2.0 Lactic A danie Sepsis Protocol [facility]) ID Date Data Source [id number] 09/10/2020 09:15:00 AM EDT [facility]) Name Value Range Interpretation Code Description Data Sharmila rce(s) Supporting Document(s) INR Inr [place] ([facility]) prothrombin time 12.8 seconds 12.5-14.3 Prothrombin Time [place] ([facility]) ID Date Data Source [id number] 09/10/2020 09:15:00 AM EDT [facility]) Name Value Range Interpretation Code Description Data Sharmila rce(s) Supporting Document(s) white blood count 5.3 10 4.0-10.0 White Blood Count [place] ([facility]) hemoglobin 12.8 g/dL 12.0-15.5 Hemoglobin [place] ([facility]) red blood count 3.97 10 4.00-5.40 Below low normal Red Blood Coun t [place] ([facility]) hematocrit 38.6 % 36.0-47.0 Hematocrit [place] ([facility]) mean corpuscular volume 97.2 fL 80.0-96.0 Above high normal Mean Corpuscular Volume [place] ([facility]) mean corpuscular hemoglobin 32.2 pg 27.0-33.0 Mean Cor puscular Hemoglobin [place] ([facility]) mean corpuscular HGB conc 33.2 g/dL 32.0-36.5 Mean Corpu scular HGB Conc [place] ([facility]) red cell distribution width 12.7 % 11.5-14.5 Red Cell Distribution Width [place] ([facility]) neutrophils % 67.0 % 36.0-66.0 Above high normal Neutrophils % [facility] [place] ([facility]) platelet count, automated 273 10 150-450 Platelet C ount, Automated [place] ([facility]) lymph % 20.9 % 24.0-44.0 Below low normal Lymph % [place] ( [facility]) mono % 9.4 % 2.0-8.0 Above high normal [place] % [place] ([facility]) eos % 1.3 % 0.0-3.0 Eos % [place] ([facility]) baso % 0.8 % 0.0-1.0 Baso % [place] ([facility]) immature granulocyte % 0.6 % 0-3.0 Immature Gran ulocyte % [place] ([facility]) nucleated red blood cell % 0.0 % 0-0 Nucleated Red Blood Cell % [place] ([facility]) neutrophils # 3.6 10 1.5-8.5 Neutrophils # [place] ( [facility]) mono # 0.5 10 0.0-0.8 [place] # [place] ([facility]) lymph # 1.1 10 1.5-5.0 Below low normal Lymph # [place] ( [facility]) eos # 0.1 10 0.0-0.5 Eos # [place] ([facility]) baso # 0.0 10 0.0-0.2 Baso # [place] ([facility]) ID Date Data Source [id number] 09/10/2020 09:15:00 AM EDT [place] ([facility]) Name Value Range Interpretation Code Description Data Sharmila rce(s) Supporting Document(s) ID Date Data Source [id number] 09/10/2020 09:15:00 AM EDT [facility]) Name Value Range Interpretation Code Description Data Sharmila rce(s) Supporting Document(s) ID Date Data Source [id number] 09/10/2020 09:15:00 AM EDT [facility]) Name Value Range Interpretation Code Description Data Sharmila rce(s) Supporting Document(s) thyroid stimulating hormone 6.590 uIU/mL 0.358-3.740 Above high no rmal Thyroid Stimulating Hormone [facility]) ID Date Data Source [id number] 09/10/2020 09:15:00 AM EDT [facility]) Name Value Range Interpretation Code Description Data Sharmila rce(s) Supporting Document(s) thyroxine (T4) 9.2 ug/dL 4.5-12.0 Thyroxine (T4) [facility]) ID Date Data Source [id number] 09/10/2020 09:15:00 AM EDT [facility]) Name Value Range Interpretation Code Description Data Sharmila rce(s) Supporting Document(s) blood urea nitrogen 15 mg/dL 7-18 Blood Urea Nitro gen [place] ([facility]) glucose, fasting 90 mg/dL 70-100 Glucose, Fasting AT [facility] ([facility]) glomerular filtration rate > 60.0 >51 Glomerula r Filtration Rate [place] ([facility]) creatinine for GFR 0.94 mg/dL 0.55-1.30 Creatinine for GF R [place] ([facility]) sodium level 135 mEq/L 136-145 Below low normal Sodium Level [place] [place] ([facility]) potassium serum 3.6 mEq/L 3.5-5.1 Potassium Serum [facility]) chloride level 100 mEq/L 98-107 Chloride Level [facility]) carbon dioxide level 31 mEq/L 21-32 Carbon Dioxide Level [place] ([facility]) calcium level 9.8 mg/dL 8.5-10.1 Calcium Level [place] ( [facility]) anion gap 4 mEq/L 8-16 Below low normal Anion Gap [place] ( [facility]) ID Date Data Source [id number] 09/10/2020 09:15:00 AM EDT [place] ([facility]) Name Value Range Interpretation Code Description Data Sharmila rce(s) Supporting Document(s) AST/SGOT 35 U/L 7-37 AST/SGOT [place] ([facility]) ALT/SGPT 29 U/L 12-78 ALT/SGPT [place] ([facility]) alkaline phosphatase 94 U/L 45-117 Alkaline Phosph atase [place] ([facility]) bilirubin,total 0.7 mg/dL 0.2-1.0 Bilirubin,total [facility] ([facility]) bilirubin,direct 0.2 mg/dL 0.0-0.2 Bilirubin,direct AT [facility] ([facility]) albumin 4.4 gm/dL 3.2-5.2 Albumin [place] ([facility]) albumin/globulin ratio 1.2-2.2 Albumin/globu luis carlos Ratio [place] ([facility]) total protein 7.8 gm/dL 6.4-8.2 Total Protein [place] ( [facility]) ID Date Data Source [id number] 09/10/2020 09:15:00 AM EDT [place] ([facility]) Name Value Range Interpretation Code Description Data Sharmila rce(s) Supporting Document(s) CPK creatine phosphokinase 690 U/L 26-192 Above high nor mal CPK Creatine Phosphokinase [place] ([facility]) CK-mb value mass 10.5 NG/mL <3.6 Above high normal CK-mb Value Mass [place] ([facility]) troponin I 0.02 NG/mL < 0.10 Troponin I [place] ([facility]) mb/CK relative index < or =4 mb/CK Relative Index [place] ([facility]) ID Date Data Source [id number] 09/10/2020 09:15:00 AM EDT [place] ([facility]) Name Value Range Interpretation Code Description Data Sharmila rce(s) Supporting Document(s) lactic acid sepsis protocol 0.8 mmol/L 0.4-2.0 Lactic A danie Sepsis Protocol [place] ([facility]) ID Date Data Source [id number] 09/10/2020 09:15:00 AM EDT [place] ([facility]) Name Value Range Interpretation Code Description Data Sharmila rce(s) Supporting Document(s) prothrombin time 12.8 seconds 12.5-14.3 Prothrombin Time [place] ([facility]) INR Inr [place] ([facility]) ID Date Data Source [id number] 09/10/2020 09:15:00 AM EDT [place] ([facility]) Name Value Range Interpretation Code Description Data Sharmila rce(s) Supporting Document(s) white blood count 5.3 10 4.0-10.0 White Blood Count [place] ([facility]) red blood count 3.97 10 4.00-5.40 Below low normal Red Blood Coun t [place] ([facility]) hemoglobin 12.8 g/dL 12.0-15.5 Hemoglobin [place] ([facility]) hematocrit 38.6 % 36.0-47.0 Hematocrit [place] ([facility]) mean corpuscular volume 97.2 fL 80.0-96.0 Above high normal Mean Corpuscular Volume [place] ([facility]) red cell distribution width 12.7 % 11.5-14.5 Red Cell Distribution Width [place] ([facility]) mean corpuscular hemoglobin 32.2 pg 27.0-33.0 Mean Cor puscular Hemoglobin [place] ([facility]) mean corpuscular HGB conc 33.2 g/dL 32.0-36.5 Mean Corpu scular HGB Conc [place] ([facility]) platelet count, automated 273 10 150-450 Platelet C ount, Automated [place] ([facility]) neutrophils % 67.0 % 36.0-66.0 Above high normal Neutrophils % A [place] ([facility]) mono % 9.4 % 2.0-8.0 Above high normal [place] % [place] ([facility]) lymph % 20.9 % 24.0-44.0 Below low normal Lymph % [place] ( [facility]) eos % 1.3 % 0.0-3.0 Eos % [place] ([facility]) baso % 0.8 % 0.0-1.0 Baso % [place] ([facility]) nucleated red blood cell % 0.0 % 0-0 Nucleated Red Blood Cell % [place] ([facility]) immature granulocyte % 0.6 % 0-3.0 Immature Gran ulocyte % [place] ([facility]) neutrophils # 3.6 10 1.5-8.5 Neutrophils # [place] ( [facility]) lymph # 1.1 10 1.5-5.0 Below low normal Lymph # [place] ( [facility]) eos # 0.1 10 0.0-0.5 Eos # [place] ([facility]) mono # 0.5 10 0.0-0.8 [place] # [place] ([facility]) baso # 0.0 10 0.0-0.2 Baso # [place] ([facility]) ID Date Data Source [id number] 09/10/2020 09:15:00 AM EDT [facility] Name Value Range Interpretation Code Description Data Sharmila rce(s) Supporting Document(s) SARS-CoV-2 (COVID 19) NEGATIVE - SARS-CoV-2 (COVID19) [facility] This lab was ordered by [facility] a nd reported by [facility]. ID Date Data Source [id number] 09/10/2020 09:15:00 AM EDT [place] ([facility]) Name Value Range Interpretation Code Description Data Sharmila rce(s) Supporting Document(s) ID Date Data Source [id number] 09/10/2020 09:15:00 AM EDT [facility]) Name Value Range Interpretation Code Description Data Sharmila rce(s) Supporting Document(s) ID Date Data Source [id number] 09/10/2020 09:15:00 AM EDT [facility]) Name Value Range Interpretation Code Description Data Sharmila rce(s) Supporting Document(s) thyroid stimulating hormone 6.590 uIU/mL 0.358-3.740 Above high no rmal Thyroid Stimulating Hormone [facility]) ID Date Data Source [id number] 09/10/2020 09:15:00 AM EDT [facility]) Name Value Range Interpretation Code Description Data Sharmila rce(s) Supporting Document(s) thyroxine (T4) 9.2 ug/dL 4.5-12.0 Thyroxine (T4) [place] ([facility]) ID Date Data Source [id number] 09/10/2020 09:15:00 AM EDT [facility]) Name Value Range Interpretation Code Description Data Sharmila rce(s) Supporting Document(s) blood urea nitrogen 15 mg/dL 7-18 Blood Urea Nitro gen [place] ([facility]) glucose, fasting 90 mg/dL 70-100 Glucose, Fasting AT [facility] ([facility]) creatinine for GFR 0.94 mg/dL 0.55-1.30 Creatinine for GF R [place] ([facility]) glomerular filtration rate > 60.0 >51 Glomerula r Filtration Rate [place] ([facility]) potassium serum 3.6 mEq/L 3.5-5.1 Potassium Serum [facility] ([facility]) sodium level 135 mEq/L 136-145 Below low normal Sodium Level [facility] NA ([facility]) chloride level 100 mEq/L 98-107 Chloride Level [place] ([facility]) carbon dioxide level 31 mEq/L 21-32 Carbon Dioxide Level [place] ([facility]) anion gap 4 mEq/L 8-16 Below low normal Anion Gap [place] ( [facility]) calcium level 9.8 mg/dL 8.5-10.1 Calcium Level [place] ( [facility]) ID Date Data Source [id number] 09/10/2020 09:15:00 AM EDT [place] ([facility]) Name Value Range Interpretation Code Description Data Sharmila rce(s) Supporting Document(s) ALT/SGPT 29 U/L 12-78 ALT/SGPT [place] ([facility]) AST/SGOT 35 U/L 7-37 AST/SGOT [place] ([facility]) alkaline phosphatase 94 U/L 45-117 Alkaline Phosph atase [place] ([facility]) bilirubin,total 0.7 mg/dL 0.2-1.0 Bilirubin,total [facility] ([facility]) bilirubin,direct 0.2 mg/dL 0.0-0.2 Bilirubin,direct [place] ([facility]) albumin 4.4 gm/dL 3.2-5.2 Albumin [place] ([facility]) albumin/globulin ratio 1.2-2.2 Albumin/globu luis carlos Ratio [place] ([facility]) total protein 7.8 gm/dL 6.4-8.2 Total Protein [place] ( [facility]) ID Date Data Source [id number] 09/10/2020 09:15:00 AM EDT [place] ([facility]) Name Value Range Interpretation Code Description Data Sharmila rce(s) Supporting Document(s) CPK creatine phosphokinase 690 U/L 26-192 Above high nor mal CPK Creatine Phosphokinase [place] ([facility]) mb/CK relative index < or =4 mb/CK Relative Index [place] ([facility]) CK-mb value mass 10.5 NG/mL <3.6 Above high normal CK-mb Value Mass [place] ([facility]) troponin I 0.02 NG/mL < 0.10 Troponin I [place] ([facility]) ID Date Data Source [id number] 09/10/2020 09:15:00 AM EDT [place] ([facility]) Name Value Range Interpretation Code Description Data Sharmila rce(s) Supporting Document(s) lactic acid sepsis protocol 0.8 mmol/L 0.4-2.0 Lactic A danie Sepsis Protocol [place] ([facility]) ID Date Data Source [id number] 09/10/2020 09:15:00 AM EDT [facility]) Name Value Range Interpretation Code Description Data Sharmila rce(s) Supporting Document(s) prothrombin time 12.8 seconds 12.5-14.3 Prothrombin Time [place] ([facility]) INR Inr [place] ([facility]) ID Date Data Source [id number] 09/10/2020 09:15:00 AM EDT [place] ([facility]) Name Value Range Interpretation Code Description Data Sharmila rce(s) Supporting Document(s) white blood count 5.3 10 4.0-10.0 White Blood Count [place] ([facility]) red blood count 3.97 10 4.00-5.40 Below low normal Red Blood Coun t [place] ([facility]) hemoglobin 12.8 g/dL 12.0-15.5 Hemoglobin [place] ([facility]) mean corpuscular volume 97.2 fL 80.0-96.0 Above high normal Mean Corpuscular Volume [place] ([facility]) hematocrit 38.6 % 36.0-47.0 Hematocrit [place] ([facility]) mean corpuscular hemoglobin 32.2 pg 27.0-33.0 Mean Cor puscular Hemoglobin [place] ([facility]) mean corpuscular HGB conc 33.2 g/dL 32.0-36.5 Mean Corpu scular HGB Conc [place] ([facility]) red cell distribution width 12.7 % 11.5-14.5 Red Cell Distribution Width [place] ([facility]) platelet count, automated 273 10 150-450 Platelet C ount, Automated [place] ([facility]) neutrophils % 67.0 % 36.0-66.0 Above high normal Neutrophils % A [place] ([facility]) lymph % 20.9 % 24.0-44.0 Below low normal Lymph % [place] ( [facility]) mono % 9.4 % 2.0-8.0 Above high normal [place] % [place] ([facility]) baso % 0.8 % 0.0-1.0 Baso % [place] ([facility]) eos % 1.3 % 0.0-3.0 Eos % [place] ([facility]) immature granulocyte % 0.6 % 0-3.0 Immature Gran ulocyte % [place] ([facility]) nucleated red blood cell % 0.0 % 0-0 Nucleated Red Blood Cell % [place] ([facility]) neutrophils # 3.6 10 1.5-8.5 Neutrophils # [place] ( [facility]) lymph # 1.1 10 1.5-5.0 Below low normal Lymph # [place] ( [facility]) mono # 0.5 10 0.0-0.8 [place] # [place] ([facility]) baso # 0.0 10 0.0-0.2 Baso # [place] ([facility]) eos # 0.1 10 0.0-0.5 Eos # [place] ([facility]) ID Date Data Source [id number] 09/10/2020 09:15:00 AM EDT [place] ([facility]) Name Value Range Interpretation Code Description Data Sharmila rce(s) Supporting Document(s) ID Date Data Source [id number] 09/10/2020 09:15:00 AM EDT [place] ([facility]) Name Value Range Interpretation Code Description Data Sharmila rce(s) Supporting Document(s) ID Date Data Source [id number] 09/10/2020 09:15:00 AM EDT [facility]) Name Value Range Interpretation Code Description Data Sharmila rce(s) Supporting Document(s) thyroid stimulating hormone 6.590 uIU/mL 0.358-3.740 Above high no rmal Thyroid Stimulating Hormone [facility]) ID Date Data Source [id number] 09/10/2020 09:15:00 AM EDT [facility]) Name Value Range Interpretation Code Description Data Sharmila rce(s) Supporting Document(s) thyroxine (T4) 9.2 ug/dL 4.5-12.0 Thyroxine (T4) [facility]) ID Date Data Source [id number] 09/10/2020 09:15:00 AM EDT [facility]) Name Value Range Interpretation Code Description Data Sharmila rce(s) Supporting Document(s) blood urea nitrogen 15 mg/dL 7-18 Blood Urea Nitro gen [place] ([facility]) glucose, fasting 90 mg/dL 70-100 Glucose, Fasting AT [facility]) glomerular filtration rate > 60.0 >51 Glomerula r Filtration Rate [place] ([facility]) creatinine for GFR 0.94 mg/dL 0.55-1.30 Creatinine for GF R [place] ([facility]) chloride level 100 mEq/L 98-107 Chloride Level [place] ([facility]) sodium level 135 mEq/L 136-145 Below low normal Sodium Level [facility] ([facility]) potassium serum 3.6 mEq/L 3.5-5.1 Potassium Serum [facility] ([facility]) anion gap 4 mEq/L 8-16 Below low normal Anion Gap [place] ( [facility]) carbon dioxide level 31 mEq/L 21-32 Carbon Dioxide Level [place] ([facility]) calcium level 9.8 mg/dL 8.5-10.1 Calcium Level [place] ( [facility]) ID Date Data Source [id number] 09/10/2020 09:15:00 AM EDT [place] ([facility]) Name Value Range Interpretation Code Description Data Sharmila rce(s) Supporting Document(s) ALT/SGPT 29 U/L 12-78 ALT/SGPT [place] ([facility]) AST/SGOT 35 U/L 7-37 AST/SGOT [place] ([facility]) bilirubin,total 0.7 mg/dL 0.2-1.0 Bilirubin,total [facility] NA ([facility]) alkaline phosphatase 94 U/L 45-117 Alkaline Phosph atase [place] ([facility]) bilirubin,direct 0.2 mg/dL 0.0-0.2 Bilirubin,direct AT [place] ([facility]) total protein 7.8 gm/dL 6.4-8.2 Total Protein [place] ( [facility]) albumin 4.4 gm/dL 3.2-5.2 Albumin [place] ([facility]) albumin/globulin ratio 1.2-2.2 Albumin/globu luis carlos Ratio [place] ([facility]) ID Date Data Source [id number] 09/10/2020 09:15:00 AM EDT [place] ([facility]) Name Value Range Interpretation Code Description Data Sharmila rce(s) Supporting Document(s) CPK creatine phosphokinase 690 U/L 26-192 Above high nor mal CPK Creatine Phosphokinase [place] ([facility]) mb/CK relative index < or =4 mb/CK Relative Index [place] ([facility]) CK-mb value mass 10.5 NG/mL <3.6 Above high normal CK-mb Value Mass [place] ([facility]) troponin I 0.02 NG/mL < 0.10 Troponin I [place] ([facility]) ID Date Data Source [id number] 09/10/2020 09:15:00 AM EDT [place] ([facility]) Name Value Range Interpretation Code Description Data Sharmila rce(s) Supporting Document(s) lactic acid sepsis protocol 0.8 mmol/L 0.4-2.0 Lactic A danie Sepsis Protocol [place] ([facility]) ID Date Data Source [id number] 09/10/2020 09:15:00 AM EDT [place] ([facility]) Name Value Range Interpretation Code Description Data Sharmila rce(s) Supporting Document(s) prothrombin time 12.8 seconds 12.5-14.3 Prothrombin Time [place] ([facility]) INR Inr [place] ([facility]) ID Date Data Source [id number] 09/10/2020 09:15:00 AM EDT [facility]) Name Value Range Interpretation Code Description Data Sharmila rce(s) Supporting Document(s) white blood count 5.3 10 4.0-10.0 White Blood Count [place] ([facility]) red blood count 3.97 10 4.00-5.40 Below low normal Red Blood Coun t [place] ([facility]) hematocrit 38.6 % 36.0-47.0 Hematocrit [place] ([facility]) hemoglobin 12.8 g/dL 12.0-15.5 Hemoglobin [place] ([facility]) mean corpuscular hemoglobin 32.2 pg 27.0-33.0 Mean Cor puscular Hemoglobin [place] ([facility]) mean corpuscular volume 97.2 fL 80.0-96.0 Above high normal Mean Corpuscular Volume [place] ([facility]) mean corpuscular HGB conc 33.2 g/dL 32.0-36.5 Mean Corpu scular HGB Conc [place] ([facility]) red cell distribution width 12.7 % 11.5-14.5 Red Cell Distribution Width [place] ([facility]) platelet count, automated 273 10 150-450 [facility] C [facility]unt, [facility] neutrophils % 67.0 % 36.0-66.0 Above high normal Neutrophils % A [place] ([facility]) lymph % 20.9 % 24.0-44.0 Below low normal Lymph % [place] ( [facility]) mono % 9.4 % 2.0-8.0 Above high normal [place] % [place] ([facility]) eos % 1.3 % 0.0-3.0 Eos % [place] ([facility]) baso % 0.8 % 0.0-1.0 Baso % [place] ([facility]) immature granulocyte % 0.6 % 0-3.0 Immature Gran ulocyte % [place] ([facility]) nucleated red blood cell % 0.0 % 0-0 Nucleated Red Blood Cell % [place] ([facility]) neutrophils # 3.6 10 1.5-8.5 Neutrophils # [place] ( [facility]) lymph # 1.1 10 1.5-5.0 Below low normal Lymph # [place] ( [facility]) eos # 0.1 10 0.0-0.5 Eos # [place] ([facility]) mono # 0.5 10 0.0-0.8 [place] # [place] ([facility]) baso # 0.0 10 0.0-0.2 Baso # [place] ([facility]) ID Date Data Source [id number] 08/04/2020 02:00:00 PM EST [place] ([facility]) Name Value Range Interpretation Code Description Data Sharmila rce(s) Supporting Document(s) total 25(oh) vitamin D 21.1 NG/mL 30.0-100.0 Below low normal T otal 25(Oh) Vitamin D [place] ([facility]) ID Date Data Source [id number] 08/04/2020 02:00:00 PM EST [place] ([facility]) Name Value Range Interpretation Code Description Data Sharmila rce(s) Supporting Document(s) magnesium level 1.8 mg/dL 1.8-2.4 Magnesium Level [facility] ([facility]) ID Date Data Source [id number] 08/04/2020 02:00:00 PM EST [place] ([facility]) Name Value Range Interpretation Code Description Data Sharmila rce(s) Supporting Document(s) cholesterol level 221 mg/dL <200 Above high normal Cholesterol Level [place] ([facility]) HDL cholesterol 81 mg/dL >40 HDL Cholesterol [facility] ([facility]) triglycerides level 116 mg/dL <150 Triglycerides Le tres [place] ([facility]) cholesterol risk ratio <5 Cholesterol R isk Ratio [place] ([facility]) Cholesterol in LDL [Mass/volume] in Serum or Plasma 117 mg/dL <100 Above high normal LDL Cholesterol [place] ([facility]) non-HDL-C 140 mg/dL Non-hdl-c [place] ([facility]) ID Date Data Source [id number] 08/04/2020 02:00:00 PM EST [place] ([facility]) Name Value Range Interpretation Code Description Data Sharmila rce(s) Supporting Document(s) blood urea nitrogen 22 mg/dL 7-18 Above high normal Blood Ure a Nitrogen [place] ([facility]) glucose, fasting 103 mg/dL 70-100 Above high normal Glucose, Fas ting [place] ([facility]) sodium level 141 mEq/L 136-145 Sodium Level [place] ([facility]) creatinine for GFR 0.97 mg/dL 0.55-1.30 Creatinine for GF R [place] ([facility]) glomerular filtration rate > 60.0 >51 Glomerula r Filtration Rate [place] ([facility]) chloride level 109 mEq/L 98-107 Above high normal Chloride Level [place] ([facility]) carbon dioxide level 29 mEq/L 21-32 Carbon Dioxide Level [place] ([facility]) potassium serum 4.5 mEq/L 3.5-5.1 Potassium Serum [facility] ([facility]) anion gap 3 mEq/L 8-16 Below low normal Anion Gap [place] ( [facility]) calcium level 8.7 mg/dL 8.5-10.1 Calcium Level [place] ( [facility]) AST/SGOT 11 U/L 7-37 AST/SGOT [place] ([facility]) alkaline phosphatase 65 U/L 45-117 Alkaline Phosph atase [place] ([facility]) bilirubin,total 0.2 mg/dL 0.2-1.0 Bilirubin,total [facility] NA ([facility]) ALT/SGPT 21 U/L 12-78 ALT/SGPT [place] ([facility]) albumin/globulin ratio 1.2-2.2 Albumin/globu luis carlos Ratio [place] ([facility]) total protein 6.4 gm/dL 6.4-8.2 Total Protein [place] ( [facility]) albumin 3.8 gm/dL 3.2-5.2 Albumin [place] ([facility]) ID Date Data Source [id number] 08/04/2020 02:00:00 PM EST [place] ([facility]) Name Value Range Interpretation Code Description Data Sharmila rce(s) Supporting Document(s) red blood count 3.73 10 4.00-5.40 Below low normal Red Blood Coun t [place] ([facility]) white blood count 4.0 10 4.0-10.0 White Blood Count [place] ([facility]) mean corpuscular volume 100.3 fL 80.0-96.0 Above high normal Mean Corpuscular Volume [place] ([facility]) hemoglobin 12.2 g/dL 12.0-15.5 Hemoglobin [place] ([facility]) hematocrit 37.4 % 36.0-47.0 Hematocrit [place] ([facility]) mean corpuscular HGB conc 32.6 g/dL 32.0-36.5 Mean Corpu scular HGB Conc [place] ([facility]) mean corpuscular hemoglobin 32.7 pg 27.0-33.0 Mean Cor puscular Hemoglobin [place] ([facility]) platelet count, automated 225 10 150-450 Platelet C ount, Automated [place] ([facility]) red cell distribution width 12.4 % 11.5-14.5 Red Cell Distribution Width [place] ([facility]) neutrophils % 64.3 % 36.0-66.0 Neutrophils % [place] ( [facility]) mono % 8.2 % 2.0-8.0 Above high normal [place] % [place] ([facility]) eos % 1.5 % 0.0-3.0 Eos % [place] ([facility]) lymph % 24.8 % 24.0-44.0 Lymph % [place] ([facility]) immature granulocyte % 0.7 % 0-3.0 Immature Gran ulocyte % [place] ([facility]) nucleated red blood cell % 0.0 % 0-0 Nucleated Red Blood Cell % [place] ([facility]) baso % 0.5 % 0.0-1.0 Baso % [place] ([facility]) lymph # 1.0 10 1.5-5.0 Below low normal Lymph # [place] ( [facility]) neutrophils # 2.6 10 1.5-8.5 Neutrophils # [place] ( [facility]) mono # 0.3 10 0.0-0.8 Gibson # [place] ([facility]) eos # 0.1 10 0.0-0.5 Eos # [place] ([facility]) baso # 0.0 10 0.0-0.2 Baso # [place] ([facility]) ID Date Data Source [id number] 08/04/2020 02:00:00 PM EST [place] ([facility]) Name Value Range Interpretation Code Description Data Sharmila rce(s) Supporting Document(s) total 25(oh) vitamin D 21.1 NG/mL 30.0-100.0 Below low normal T otal 25(Oh) Vitamin D [place] ([facility]) ID Date Data Source [id number] 08/04/2020 02:00:00 PM EST [place] ([facility]) Name Value Range Interpretation Code Description Data Sharmila rce(s) Supporting Document(s) magnesium level 1.8 mg/dL 1.8-2.4 Magnesium Level [place] NA ([facility]) ID Date Data Source [id number] 08/04/2020 02:00:00 PM EST [place] ([facility]) Name Value Range Interpretation Code Description Data Sharmila rce(s) Supporting Document(s) cholesterol level 221 mg/dL <200 Above high normal Cholesterol Level [place] ([facility]) triglycerides level 116 mg/dL <150 Triglycerides Le tres [place] ([facility]) Cholesterol in LDL [Mass/volume] in Serum or Plasma 117 mg/dL <100 Above high normal LDL Cholesterol [place] ([facility]) HDL cholesterol 81 mg/dL >40 HDL Cholesterol [place] NA ([facility]) non-HDL-C 140 mg/dL Non-hdl-c [place] ([facility]) cholesterol risk ratio <5 Cholesterol R isk Ratio [place] ([facility]) ID Date Data Source [id number] 08/04/2020 02:00:00 PM EST [place] ([facility]) Name Value Range Interpretation Code Description Data Sharmila rce(s) Supporting Document(s) glucose, fasting 103 mg/dL 70-100 Above high normal Glucose, Fas ting [place] ([facility]) blood urea nitrogen 22 mg/dL 7-18 Above high normal Blood Ure a Nitrogen [place] ([facility]) creatinine for GFR 0.97 mg/dL 0.55-1.30 Creatinine for GF R [place] ([facility]) potassium serum 4.5 mEq/L 3.5-5.1 Potassium Serum [facility] NA ([facility]) glomerular filtration rate > 60.0 >51 Glomerula r Filtration Rate [place] ([facility]) sodium level 141 mEq/L 136-145 Sodium Level [place] ([facility]) carbon dioxide level 29 mEq/L 21-32 Carbon Dioxide Level [place] ([facility]) chloride level 109 mEq/L 98-107 Above high normal Chloride Level [place] ([facility]) anion gap 3 mEq/L 8-16 Below low normal Anion Gap [place] ( [facility]) AST/SGOT 11 U/L 7-37 AST/SGOT [place] ([facility]) calcium level 8.7 mg/dL 8.5-10.1 Calcium Level [place] ( [facility]) ALT/SGPT 21 U/L 12-78 ALT/SGPT [place] ([facility]) alkaline phosphatase 65 U/L 45-117 Alkaline Phosph atase [place] ([facility]) total protein 6.4 gm/dL 6.4-8.2 Total Protein [place] ( [facility]) bilirubin,total 0.2 mg/dL 0.2-1.0 Bilirubin,total [facility] ([facility]) albumin/globulin ratio 1.2-2.2 Albumin/globu luis carlos Ratio [place] ([facility]) albumin 3.8 gm/dL 3.2-5.2 Albumin [place] ([facility]) ID Date Data Source [id number] 08/04/2020 02:00:00 PM EST [place] ([facility]) Name Value Range Interpretation Code Description Data Sharmila rce(s) Supporting Document(s) white blood count 4.0 10 4.0-10.0 White Blood Count [place] ([facility]) red blood count 3.73 10 4.00-5.40 Below low normal Red Blood Coun t [place] ([facility]) hemoglobin 12.2 g/dL 12.0-15.5 Hemoglobin [place] ([facility]) hematocrit 37.4 % 36.0-47.0 Hematocrit [place] ([facility]) mean corpuscular volume 100.3 fL 80.0-96.0 Above high normal Mean Corpuscular Volume [place] ([facility]) mean corpuscular HGB conc 32.6 g/dL 32.0-36.5 Mean Corpu scular HGB Conc [place] ([facility]) mean corpuscular hemoglobin 32.7 pg 27.0-33.0 Mean Cor puscular Hemoglobin [place] ([facility]) platelet count, automated 225 10 150-450 Platelet C ount, Automated [place] ([facility]) red cell distribution width 12.4 % 11.5-14.5 Red Cell Distribution Width [place] ([facility]) neutrophils % 64.3 % 36.0-66.0 Neutrophils % [place] ( [facility]) lymph % 24.8 % 24.0-44.0 Lymph % [place] ([facility]) mono % 8.2 % 2.0-8.0 Above high normal [place] % [place] ([facility]) eos % 1.5 % 0.0-3.0 Eos % [place] ([facility]) baso % 0.5 % 0.0-1.0 Baso % [place] ([facility]) immature granulocyte % 0.7 % 0-3.0 Immature Gran ulocyte % [place] ([facility]) nucleated red blood cell % 0.0 % 0-0 Nucleated Red Blood Cell % [place] ([facility]) neutrophils # 2.6 10 1.5-8.5 Neutrophils # [place] ( [facility]) mono # 0.3 10 0.0-0.8 [place] # [place] ([facility]) eos # 0.1 10 0.0-0.5 Eos # [place] ([facility]) lymph # 1.0 10 1.5-5.0 Below low normal Lymph # [place] ( [facility]) baso # 0.0 10 0.0-0.2 Baso # [place] ([facility]) ID Date Data Source [id number] 08/04/2020 02:00:00 PM EST [place] ([facility]) Name Value Range Interpretation Code Description Data Sharmila rce(s) Supporting Document(s) total 25(oh) vitamin D 21.1 NG/mL 30.0-100.0 Below low normal T otal 25(Oh) Vitamin D [place] ([facility]) ID Date Data Source [id number] 08/04/2020 02:00:00 PM EST [place] ([facility]) Name Value Range Interpretation Code Description Data Sharmila rce(s) Supporting Document(s) magnesium level 1.8 mg/dL 1.8-2.4 Magnesium Level [place] NA ([facility]) ID Date Data Source [id number] 08/04/2020 02:00:00 PM EST [place] ([facility]) Name Value Range Interpretation Code Description Data Sharmila rce(s) Supporting Document(s) triglycerides level 116 mg/dL <150 Triglycerides Le tres [place] ([facility]) HDL cholesterol 81 mg/dL >40 HDL Cholesterol [place] NA ([facility]) cholesterol level 221 mg/dL <200 Above high normal Cholesterol Level [place] ([facility]) non-HDL-C 140 mg/dL Non-hdl-c [place] ([facility]) cholesterol risk ratio <5 Cholesterol R isk Ratio [place] ([facility]) Cholesterol in LDL [Mass/volume] in Serum or Plasma 117 mg/dL <100 Above high normal LDL Cholesterol [place] ([facility]) ID Date Data Source [id number] 08/04/2020 02:00:00 PM EST [place] ([facility]) Name Value Range Interpretation Code Description Data Sharmila rce(s) Supporting Document(s) glucose, fasting 103 mg/dL 70-100 Above high normal Glucose, Fas ting [place] ([facility]) glomerular filtration rate > 60.0 >51 Glomerula r Filtration Rate [place] ([facility]) blood urea nitrogen 22 mg/dL 7-18 Above high normal Blood Ure a Nitrogen [place] ([facility]) creatinine for GFR 0.97 mg/dL 0.55-1.30 Creatinine for GF R [place] ([facility]) sodium level 141 mEq/L 136-145 Sodium Level [place] ([facility]) potassium serum 4.5 mEq/L 3.5-5.1 Potassium Serum [place] NA ([facility]) carbon dioxide level 29 mEq/L 21-32 Carbon Dioxide Level [place] ([facility]) chloride level 109 mEq/L 98-107 Above high normal Chloride Level [place] ([facility]) anion gap 3 mEq/L 8-16 Below low normal Anion Gap [place] ( [facility]) ALT/SGPT 21 U/L 12-78 ALT/SGPT [place] ([facility]) alkaline phosphatase 65 U/L 45-117 Alkaline Phosph atase [place] ([facility]) AST/SGOT 11 U/L 7-37 AST/SGOT [place] ([facility]) calcium level 8.7 mg/dL 8.5-10.1 Calcium Level [place] ( [facility]) albumin 3.8 gm/dL 3.2-5.2 Albumin [place] ([facility]) total protein 6.4 gm/dL 6.4-8.2 Total Protein [place] ( [facility]) bilirubin,total 0.2 mg/dL 0.2-1.0 Bilirubin,total [place] ([facility]) albumin/globulin ratio 1.2-2.2 Albumin/globu luis carlos Ratio [place] ([facility]) ID Date Data Source [id number] 08/04/2020 02:00:00 PM EST [place] ([facility]) Name Value Range Interpretation Code Description Data Sharmila rce(s) Supporting Document(s) white blood count 4.0 10 4.0-10.0 White Blood Count [place] ([facility]) red blood count 3.73 10 4.00-5.40 Below low normal Red Blood Coun t [place] ([facility]) hemoglobin 12.2 g/dL 12.0-15.5 Hemoglobin [place] ([facility]) mean corpuscular volume 100.3 fL 80.0-96.0 Above high normal Mean Corpuscular Volume [place] ([facility]) hematocrit 37.4 % 36.0-47.0 Hematocrit [place] ([facility]) red cell distribution width 12.4 % 11.5-14.5 Red Cell Distribution Width [place] ([facility]) mean corpuscular HGB conc 32.6 g/dL 32.0-36.5 Mean Corpu scular HGB Conc [place] ([facility]) mean corpuscular hemoglobin 32.7 pg 27.0-33.0 Mean Cor puscular Hemoglobin [place] ([facility]) platelet count, automated 225 10 150-450 Platelet C ount, Automated [place] ([facility]) neutrophils % 64.3 % 36.0-66.0 Neutrophils % [place] ( [facility]) lymph % 24.8 % 24.0-44.0 Lymph % [place] ([facility]) eos % 1.5 % 0.0-3.0 Eos % [place] ([facility]) mono % 8.2 % 2.0-8.0 Above high normal [place] % [place] ([facility]) baso % 0.5 % 0.0-1.0 Baso % [place] ([facility]) immature granulocyte % 0.7 % 0-3.0 Immature Gran ulocyte % [place] ([facility]) nucleated red blood cell % 0.0 % 0-0 Nucleated Red Blood Cell % [place] ([facility]) mono # 0.3 10 0.0-0.8 [place] # [place] ([facility]) neutrophils # 2.6 10 1.5-8.5 Neutrophils # [place] ( [facility]) lymph # 1.0 10 1.5-5.0 Below low normal Lymph # [place] ( [facility]) eos # 0.1 10 0.0-0.5 Eos # [place] ([facility]) baso # 0.0 10 0.0-0.2 Baso # [place] ([facility]) ID Date Data Source [id number] 08/04/2020 02:00:00 PM EST [place] ([facility]) Name Value Range Interpretation Code Description Data Sharmila rce(s) Supporting Document(s) total 25(oh) vitamin D 21.1 NG/mL 30.0-100.0 Below low normal T otal 25(Oh) Vitamin D [place] ([facility]) ID Date Data Source [id number] 08/04/2020 02:00:00 PM EST [place] ([facility]) Name Value Range Interpretation Code Description Data Sharmila rce(s) Supporting Document(s) magnesium level 1.8 mg/dL 1.8-2.4 Magnesium Level [facility] NA ([facility]) ID Date Data Source [id number] 08/04/2020 02:00:00 PM EST [place] ([facility]) Name Value Range Interpretation Code Description Data Sharmila rce(s) Supporting Document(s) HDL cholesterol 81 mg/dL >40 HDL Cholesterol [facility] ([facility]) triglycerides level 116 mg/dL <150 Triglycerides Le tres [place] ([facility]) cholesterol level 221 mg/dL <200 Above high normal Cholesterol Level [place] ([facility]) non-HDL-C 140 mg/dL Non-hdl-c [place] ([facility]) cholesterol risk ratio <5 Cholesterol R isk Ratio [place] ([facility]) Cholesterol in LDL [Mass/volume] in Serum or Plasma 117 mg/dL <100 Above high normal LDL Cholesterol [place] ([facility]) ID Date Data Source [id number] 08/04/2020 02:00:00 PM EST [place] ([facility]) Name Value Range Interpretation Code Description Data Sharmila rce(s) Supporting Document(s) blood urea nitrogen 22 mg/dL 7-18 Above high normal Blood Ure a Nitrogen [place] ([facility]) glucose, fasting 103 mg/dL 70-100 Above high normal Glucose, Fas ting [place] ([facility]) potassium serum 4.5 mEq/L 3.5-5.1 Potassium Serum [place] ([facility]) glomerular filtration rate > 60.0 >51 Glomerula r Filtration Rate [place] ([facility]) creatinine for GFR 0.97 mg/dL 0.55-1.30 Creatinine for GF R [place] ([facility]) sodium level 141 mEq/L 136-145 Sodium Level [place] ([facility]) carbon dioxide level 29 mEq/L 21-32 Carbon Dioxide Level [place] ([facility]) chloride level 109 mEq/L 98-107 Above high normal Chloride Level [place] ([facility]) anion gap 3 mEq/L 8-16 Below low normal Anion Gap [place] ( [facility]) calcium level 8.7 mg/dL 8.5-10.1 Calcium Level [place] ( [facility]) AST/SGOT 11 U/L 7-37 AST/SGOT [place] ([facility]) ALT/SGPT 21 U/L 12-78 ALT/SGPT [place] ([facility]) alkaline phosphatase 65 U/L 45-117 Alkaline Phosph atase [place] ([facility]) total protein 6.4 gm/dL 6.4-8.2 Total Protein [place] ( [facility]) bilirubin,total 0.2 mg/dL 0.2-1.0 Bilirubin,total [facility] ([facility]) albumin/globulin ratio 1.2-2.2 Albumin/globu luis carlos Ratio [place] ([facility]) albumin 3.8 gm/dL 3.2-5.2 Albumin [place] ([facility]) ID Date Data Source [id number] 08/04/2020 02:00:00 PM EST [place] ([facility]) Name Value Range Interpretation Code Description Data Sharmila rce(s) Supporting Document(s) white blood count 4.0 10 4.0-10.0 White Blood Count [place] ([facility]) red blood count 3.73 10 4.00-5.40 Below low normal Red Blood Coun t [place] ([facility]) hemoglobin 12.2 g/dL 12.0-15.5 Hemoglobin [place] ([facility]) mean corpuscular hemoglobin 32.7 pg 27.0-33.0 Mean Cor puscular Hemoglobin [place] ([facility]) mean corpuscular volume 100.3 fL 80.0-96.0 Above high normal Mean Corpuscular Volume [place] ([facility]) hematocrit 37.4 % 36.0-47.0 Hematocrit [place] ([facility]) mean corpuscular HGB conc 32.6 g/dL 32.0-36.5 Mean Corpu scular HGB Conc [place] ([facility]) red cell distribution width 12.4 % 11.5-14.5 Red Cell Distribution Width [place] ([facility]) platelet count, automated 225 10 150-450 Platelet C ount, Automated [place] ([facility]) mono % 8.2 % 2.0-8.0 Above high normal [place] % [place] ([facility]) neutrophils % 64.3 % 36.0-66.0 Neutrophils % [place] ( [facility]) lymph % 24.8 % 24.0-44.0 Lymph % [place] ([facility]) eos % 1.5 % 0.0-3.0 Eos % [place] ([facility]) baso % 0.5 % 0.0-1.0 Baso % [place] ([facility]) neutrophils # 2.6 10 1.5-8.5 Neutrophils # [place] ( [facility]) immature granulocyte % 0.7 % 0-3.0 Immature Gran ulocyte % [place] ([facility]) nucleated red blood cell % 0.0 % 0-0 Nucleated Red Blood Cell % [place] ([facility]) lymph # 1.0 10 1.5-5.0 Below low normal Lymph # [place] ( [facility]) mono # 0.3 10 0.0-0.8 [place] # [place] ([facility]) eos # 0.1 10 0.0-0.5 Eos # [place] ([facility]) baso # 0.0 10 0.0-0.2 Baso # [place] ([facility]) ID Date Data Source [id number] 08/04/2020 02:00:00 PM EST [place] ([facility]) Name Value Range Interpretation Code Description Data Sharmila rce(s) Supporting Document(s) total 25(oh) vitamin D 21.1 NG/mL 30.0-100.0 Below low normal T otal 25(Oh) Vitamin D [place] ([facility]) ID Date Data Source [id number] 08/04/2020 02:00:00 PM EST [place] ([facility]) Name Value Range Interpretation Code Description Data Sharmila rce(s) Supporting Document(s) magnesium level 1.8 mg/dL 1.8-2.4 Magnesium Level ATHE NA ([facility]) ID Date Data Source [id number] 08/04/2020 02:00:00 PM EST [place] ([facility]) Name Value Range Interpretation Code Description Data Sharmila rce(s) Supporting Document(s) cholesterol level 221 mg/dL <200 Above high normal Cholesterol Level [place] ([facility]) triglycerides level 116 mg/dL <150 Triglycerides Le tres [place] ([facility]) HDL cholesterol 81 mg/dL >40 HDL Cholesterol [place] NA ([facility]) non-HDL-C 140 mg/dL Non-hdl-c [place] ([facility]) Cholesterol in LDL [Mass/volume] in Serum or Plasma 117 mg/dL <100 Above high normal LDL Cholesterol [place] ([facility]) cholesterol risk ratio <5 Cholesterol R isk Ratio [place] ([facility]) ID Date Data Source [id number] 08/04/2020 02:00:00 PM EST [place] ([facility]) Name Value Range Interpretation Code Description Data Sharmila rce(s) Supporting Document(s) glucose, fasting 103 mg/dL 70-100 Above high normal Glucose, Fas ting [place] ([facility]) blood urea nitrogen 22 mg/dL 7-18 Above high normal Blood Ure a Nitrogen [place] ([facility]) creatinine for GFR 0.97 mg/dL 0.55-1.30 Creatinine for GF R [place] ([facility]) glomerular filtration rate > 60.0 >51 Glomerula r Filtration Rate [place] ([facility]) sodium level 141 mEq/L 136-145 Sodium Level [place] (No [facility]) chloride level 109 mEq/L 98-107 Above high normal Chloride Level [place] ([facility]) carbon dioxide level 29 mEq/L 21-32 Carbon Dioxide Level [place] ([facility]) potassium serum 4.5 mEq/L 3.5-5.1 Potassium Serum AT[facility] NA ([facility]) calcium level 8.7 mg/dL 8.5-10.1 Calcium Level [place] ( [facility]) anion gap 3 mEq/L 8-16 Below low normal Anion Gap [place] ( [facility]) alkaline phosphatase 65 U/L 45-117 Alkaline Phosph atase [place] ([facility]) AST/SGOT 11 U/L 7-37 AST/SGOT [place] ([facility]) ALT/SGPT 21 U/L 12-78 ALT/SGPT [place] ([facility]) bilirubin,total 0.2 mg/dL 0.2-1.0 Bilirubin,total [facility] ([facility]) total protein 6.4 gm/dL 6.4-8.2 Total Protein [place] ( [facility]) albumin 3.8 gm/dL 3.2-5.2 Albumin [place] ([facility]) albumin/globulin ratio 1.2-2.2 Albumin/globu luis carlos Ratio [place] ([facility]) ID Date Data Source [id number] 08/04/2020 02:00:00 PM EST [place] ([facility]) Name Value Range Interpretation Code Description Data Sharmila rce(s) Supporting Document(s) white blood count 4.0 10 4.0-10.0 White Blood Count [place] ([facility]) red blood count 3.73 10 4.00-5.40 Below low normal Red Blood Coun t [place] ([facility]) hematocrit 37.4 % 36.0-47.0 Hematocrit [place] ([facility]) hemoglobin 12.2 g/dL 12.0-15.5 Hemoglobin [place] ([facility]) mean corpuscular volume 100.3 fL 80.0-96.0 Above high normal Mean Corpuscular Volume [place] ([facility]) mean corpuscular hemoglobin 32.7 pg 27.0-33.0 Mean Cor puscular Hemoglobin [place] ([facility]) mean corpuscular HGB conc 32.6 g/dL 32.0-36.5 Mean Corpu scular HGB Conc [place] ([facility]) red cell distribution width 12.4 % 11.5-14.5 Red Cell Distribution Width [place] ([facility]) neutrophils % 64.3 % 36.0-66.0 Neutrophils % [place] ( [facility]) platelet count, automated 225 10 150-450 Platelet C ount, Automated [place] ([facility]) lymph % 24.8 % 24.0-44.0 Lymph % [place] ([facility]) eos % 1.5 % 0.0-3.0 Eos % [place] ([facility]) mono % 8.2 % 2.0-8.0 Above high normal [place] % [place] ([facility]) immature granulocyte % 0.7 % 0-3.0 Immature Gran ulocyte % [place] ([facility]) baso % 0.5 % 0.0-1.0 Baso % [place] ([facility]) nucleated red blood cell % 0.0 % 0-0 Nucleated Red Blood Cell % [place] ([facility]) neutrophils # 2.6 10 1.5-8.5 Neutrophils # [place] ( [facility]) lymph # 1.0 10 1.5-5.0 Below low normal Lymph # [place] ( [facility]) eos # 0.1 10 0.0-0.5 Eos # [place] ([facility]) baso # 0.0 10 0.0-0.2 Baso # [place] ([facility]) mono # 0.3 10 0.0-0.8 [place] # [place] ([facility]) ID Date Data Source [id number] 08/04/2020 02:00:00 PM EST [place] ([facility]) Name Value Range Interpretation Code Description Data Sharmila rce(s) Supporting Document(s) total 25(oh) vitamin D 21.1 NG/mL 30.0-100.0 Below low normal T otal 25(Oh) Vitamin D [place] ([facility]) ID Date Data Source [id number] 08/04/2020 02:00:00 PM EST [place] ([facility]) Name Value Range Interpretation Code Description Data Sharmila rce(s) Supporting Document(s) magnesium level 1.8 mg/dL 1.8-2.4 Magnesium Level ATHE NA ([facility]) ID Date Data Source [id number] 08/04/2020 02:00:00 PM EST [place] ([facility]) Name Value Range Interpretation Code Description Data Sharmila rce(s) Supporting Document(s) HDL cholesterol 81 mg/dL >40 HDL Cholesterol ATHE NA ([facility]) cholesterol level 221 mg/dL <200 Above high normal Cholesterol Level [place] ([facility]) triglycerides level 116 mg/dL <150 Triglycerides Le tres [place] ([facility]) cholesterol risk ratio <5 Cholesterol R isk Ratio [place] ([facility]) Cholesterol in LDL [Mass/volume] in Serum or Plasma 117 mg/dL <100 Above high normal LDL Cholesterol [place] ([facility]) non-HDL-C 140 mg/dL Non-hdl-c [place] ([facility]) ID Date Data Source [id number] 08/04/2020 02:00:00 PM EST [place] ([facility]) Name Value Range Interpretation Code Description Data Sharmila rce(s) Supporting Document(s) glucose, fasting 103 mg/dL 70-100 Above high normal Glucose, Fas ting [place] ([facility]) blood urea nitrogen 22 mg/dL 7-18 Above high normal Blood Ure a Nitrogen [place] ([facility]) glomerular filtration rate > 60.0 >51 Glomerula r Filtration Rate [place] ([facility]) creatinine for GFR 0.97 mg/dL 0.55-1.30 Creatinine for GF R [place] ([facility]) sodium level 141 mEq/L 136-145 Sodium Level [facility] ([facility]) chloride level 109 mEq/L 98-107 Above high normal Chloride Level [place] ([facility]) carbon dioxide level 29 mEq/L 21-32 Carbon Dioxide Level [place] ([facility]) potassium serum 4.5 mEq/L 3.5-5.1 Potassium Serum [facility] ([facility]) anion gap 3 mEq/L 8-16 Below low normal Anion Gap [place] ( [facility]) AST/SGOT 11 U/L 7-37 AST/SGOT [place] ([facility]) calcium level 8.7 mg/dL 8.5-10.1 Calcium Level [place] ( [facility]) ALT/SGPT 21 U/L 12-78 ALT/SGPT [place] ([facility]) alkaline phosphatase 65 U/L 45-117 Alkaline Phosph atase [place] ([facility]) bilirubin,total 0.2 mg/dL 0.2-1.0 Bilirubin,total [facility] ([facility]) total protein 6.4 gm/dL 6.4-8.2 Total Protein [place] ( [facility]) albumin/globulin ratio 1.2-2.2 Albumin/globu luis carlos Ratio [place] ([facility]) albumin 3.8 gm/dL 3.2-5.2 Albumin [place] ([facility]) ID Date Data Source [id number] 08/04/2020 02:00:00 PM EST [place] ([facility]) Name Value Range Interpretation Code Description Data Sharmila rce(s) Supporting Document(s) white blood count 4.0 10 4.0-10.0 White Blood Count [place] ([facility]) red blood count 3.73 10 4.00-5.40 Below low normal Red Blood Coun t [place] ([facility]) hemoglobin 12.2 g/dL 12.0-15.5 Hemoglobin [place] ([facility]) hematocrit 37.4 % 36.0-47.0 Hematocrit [place] ([facility]) mean corpuscular volume 100.3 fL 80.0-96.0 Above high normal Mean Corpuscular Volume [place] ([facility]) mean corpuscular HGB conc 32.6 g/dL 32.0-36.5 Mean Corpu scular HGB Conc [place] ([facility]) mean corpuscular hemoglobin 32.7 pg 27.0-33.0 Mean Cor puscular Hemoglobin [place] ([facility]) red cell distribution width 12.4 % 11.5-14.5 Red Cell Distribution Width [place] ([facility]) platelet count, automated 225 10 150-450 Platelet C ount, Automated [place] ([facility]) neutrophils % 64.3 % 36.0-66.0 Neutrophils % [place] ( [facility]) lymph % 24.8 % 24.0-44.0 Lymph % [place] ([facility]) eos % 1.5 % 0.0-3.0 Eos % [place] ([facility]) baso % 0.5 % 0.0-1.0 Baso % [place] ([facility]) mono % 8.2 % 2.0-8.0 Above high normal [place] % [place] ([facility]) nucleated red blood cell % 0.0 % 0-0 Nucleated Red Blood Cell % [place] ([facility]) immature granulocyte % 0.7 % 0-3.0 Immature Gran ulocyte % [place] ([facility]) mono # 0.3 10 0.0-0.8 Gibson # [place] ([facility]) lymph # 1.0 10 1.5-5.0 Below low normal Lymph # [place] ( [facility]) neutrophils # 2.6 10 1.5-8.5 Neutrophils # [place] ( [facility]) eos # 0.1 10 0.0-0.5 Eos # [place] ([facility]) baso # 0.0 10 0.0-0.2 Baso # [place] ([facility]) ID Date Data Source [id number] 06/22/2020 12:00:00 AM EST [facility] Deo Fay MD Patient Name: LANNY PINEDA,[id number] [facility] Date of : 1965[place] [address] Date of Exam: 06/22/2020#: Fax: [phone] EXAM: LUMBSACRAL SPINE (2 OR 3 VIEWS) XRAYCLINICAL INFORMATION: Disability.COMPARISON: 01/01/2017.There is slight marginal osteophytosis bilaterally particularly affectingthe lower lumbar levels unchanged. The pedicles are again seen to be intactbilaterally. Vertebral body height and alignment is unchanged. There isposterior disc space narrowing at every level status quo.IMPRESSION:Chronic changes as described above.SUAD Wilson/Zhou you for referring MARYSE PINEDA to our office. Electronically Signed - PEREZ DICKEY DO 06/23/20 9:59 Name Value Range Interpretation Code Description Data Sharmila rce(s) Supporting Document(s) ID Date Data Source [id number] 03/18/2020 01:09:00 PM EDT [place] ([facility]) Name Value Range Interpretation Code Description Data Sharmila rce(s) Supporting Document(s) estimated average glucose 94 mg/dL 60-110 Estimated Average Glucose [place] ([facility]) Hemoglobin A1c/Hemoglobin.total in Blood 4.9 % Hemoglobin a1C [place] ([facility]) ID Date Data Source [id number] 03/18/2020 01:09:00 PM EDT [place] ([facility]) Name Value Range Interpretation Code Description Data Sharmila rce(s) Supporting Document(s) total 25(oh) vitamin D 25.2 NG/mL 30.0-100.0 Below low normal T otal 25(Oh) Vitamin D [place] ([facility]) ID Date Data Source [id number] 03/18/2020 01:09:00 PM EDT [place] ([facility]) Name Value Range Interpretation Code Description Data Sharmila rce(s) Supporting Document(s) thyroid stimulating hormone 2.710 uIU/mL 0.358-3.740 Thyroid Stimulating Hormone [place] ([facility]) free T4 0.90 NG/dL 0.76-1.46 Free T4 [place] ([facility]) ID Date Data Source [id number] 03/18/2020 01:09:00 PM EDT [place] ([facility]) Name Value Range Interpretation Code Description Data Sharmila rce(s) Supporting Document(s) Cholesterol in LDL [Mass/volume] in Serum or Plasma 71 mg/dL <1 00 LDL Cholesterol [place] ([facility]) HDL cholesterol 91 mg/dL >40 HDL Cholesterol ATHE NA ([facility]) cholesterol level 193 mg/dL <200 Cholesterol Level [place] ([facility]) triglycerides level 153 mg/dL <150 Above high normal Triglycer ides Level [place] ([facility]) non-HDL-C 102 mg/dL Non-hdl-c [place] ([facility]) cholesterol risk ratio <5 Cholesterol R isk Ratio [place] ([facility]) ID Date Data Source [id number] 03/18/2020 01:09:00 PM EDT [place] ([facility]) Name Value Range Interpretation Code Description Data Sharmila rce(s) Supporting Document(s) glucose, fasting 82 mg/dL 70-100 Glucose, Fasting AT [place] ([facility]) blood urea nitrogen 21 mg/dL 7-18 Above high normal Blood Ure a Nitrogen [place] ([facility]) potassium serum 5.4 mEq/L 3.5-5.1 Above high normal Potassium Ser um [place] ([facility]) sodium level 140 mEq/L 136-145 Sodium Level [place] (No [facility]) glomerular filtration rate >51 Glomerula r Filtration Rate [place] ([facility]) creatinine for GFR 1.02 mg/dL 0.55-1.30 Creatinine for GF R [place] ([facility]) anion gap 3 mEq/L 8-16 Below low normal Anion Gap [place] ( [facility]) carbon dioxide level 29 mEq/L 21-32 Carbon Dioxide Level [place] ([facility]) chloride level 108 mEq/L 98-107 Above high normal Chloride Level [place] ([facility]) calcium level 8.8 mg/dL 8.5-10.1 Calcium Level [place] ( [facility]) ALT/SGPT 22 U/L 12-78 ALT/SGPT [place] ([facility]) alkaline phosphatase 78 U/L 45-117 Alkaline Phosph atase [place] ([facility]) AST/SGOT 20 U/L 7-37 AST/SGOT [place] ([facility]) albumin 3.7 gm/dL 3.2-5.2 Albumin [place] ([facility]) albumin/globulin ratio 1.2-2.2 Albumin/globu luis carlos Ratio [place] ([facility]) total protein 6.8 gm/dL 6.4-8.2 Total Protein [place] ( [facility]) bilirubin,total 0.3 mg/dL 0.2-1.0 Bilirubin,total ATHE NA ([facility]) ID Date Data Source [id number] 03/18/2020 01:09:00 PM EDT [place] ([facility]) Name Value Range Interpretation Code Description Data Sharmila rce(s) Supporting Document(s) white blood count 4.3 10 4.0-10.0 White Blood Count [place] ([facility]) hematocrit 40.8 % 36.0-47.0 Hematocrit [place] ([facility]) hemoglobin 13.3 g/dL 12.0-15.5 Hemoglobin [place] ([facility]) red blood count 4.22 10 4.00-5.40 Red Blood Count [facility] NA ([facility]) mean corpuscular volume 96.7 fL 80.0-96.0 Above high normal Mean Corpuscular Volume [place] ([facility]) red cell distribution width 12.4 % 11.5-14.5 Red Cell Distribution Width [place] ([facility]) mean corpuscular hemoglobin 31.5 pg 27.0-33.0 Mean Cor puscular Hemoglobin [place] ([facility]) mean corpuscular HGB conc 32.6 g/dL 32.0-36.5 Mean Corpu scular HGB Conc [place] ([facility]) platelet count, automated 252 10 150-450 Platelet C ount, Automated [place] ([facility]) lymph % 25.8 % 24.0-44.0 Lymph % [place] ([facility]) neutrophils % 64.1 % 36.0-66.0 Neutrophils % [place] ( [facility]) mono % 6.8 % 0.0-5.0 Above high normal Gibson % [place] ([facility]) baso % 0.9 % 0.0-1.0 Baso % [place] ([facility]) eos % 1.9 % 0.0-3.0 Eos % [place] ([facility]) neutrophils # 2.7 10 1.5-8.5 Neutrophils # [place] ( [facility]) lymph # 1.1 10 1.5-5.0 Below low normal Lymph # [place] ( [facility]) immature granulocyte % 0.5 % 0-3.0 Immature Gran ulocyte % [place] ([facility]) nucleated red blood cell % 0.0 % 0-0 Nucleated Red Blood Cell % [place] ([facility]) mono # 0.3 10 0.0-0.8 Gibson # [place] ([facility]) eos # 0.1 10 0.0-0.5 Eos # [place] ([facility]) baso # 0.0 10 0.0-0.2 Baso # [place] ([facility]) ID Date Data Source [id number] 03/18/2020 01:09:00 PM EDT [place] ([facility]) Name Value Range Interpretation Code Description Data Sharmila rce(s) Supporting Document(s) Hemoglobin A1c/Hemoglobin.total in Blood 4.9 % Hemoglobin a1C [place] ([facility]) estimated average glucose 94 mg/dL 60-110 Estimated Average Glucose [place] ([facility]) ID Date Data Source [id number] 03/18/2020 01:09:00 PM EDT [place] ([facility]) Name Value Range Interpretation Code Description Data Sharmila rce(s) Supporting Document(s) total 25(oh) vitamin D 25.2 NG/mL 30.0-100.0 Below low normal T otal 25(Oh) Vitamin D [place] ([facility]) ID Date Data Source [id number] 03/18/2020 01:09:00 PM EDT [place] ([facility]) Name Value Range Interpretation Code Description Data Sharmila rce(s) Supporting Document(s) free T4 0.90 NG/dL 0.76-1.46 Free T4 [place] ([facility]) thyroid stimulating hormone 2.710 uIU/mL 0.358-3.740 Thyroid Stimulating Hormone [place] ([facility]) ID Date Data Source [id number] 03/18/2020 01:09:00 PM EDT [place] ([facility]) Name Value Range Interpretation Code Description Data Sharmila rce(s) Supporting Document(s) cholesterol level 193 mg/dL <200 Cholesterol Level [place] ([facility]) triglycerides level 153 mg/dL <150 Above high normal Triglycer ides Level [place] ([facility]) non-HDL-C 102 mg/dL Non-hdl-c [place] ([facility]) cholesterol risk ratio <5 Cholesterol R isk Ratio [place] ([facility]) HDL cholesterol 91 mg/dL >40 HDL Cholesterol ATHE NA ([facility]) Cholesterol in LDL [Mass/volume] in Serum or Plasma 71 mg/dL <1 00 LDL Cholesterol [place] ([facility]) ID Date Data Source [id number] 03/18/2020 01:09:00 PM EDT [place] ([facility]) Name Value Range Interpretation Code Description Data Sharmila rce(s) Supporting Document(s) blood urea nitrogen 21 mg/dL 7-18 Above high normal Blood Ure a Nitrogen [place] ([facility]) glucose, fasting 82 mg/dL 70-100 Glucose, Fasting AT [facility]) potassium serum 5.4 mEq/L 3.5-5.1 Above high normal Potassium Ser um [place] ([facility]) glomerular filtration rate >51 Glomerula r Filtration Rate [place] ([facility]) creatinine for GFR 1.02 mg/dL 0.55-1.30 Creatinine for GF R [place] ([facility]) sodium level 140 mEq/L 136-145 Sodium Level [facility] ([facility]) carbon dioxide level 29 mEq/L 21-32 Carbon Dioxide Level [place] ([facility]) chloride level 108 mEq/L 98-107 Above high normal Chloride Level [place] ([facility]) AST/SGOT 20 U/L 7-37 AST/SGOT [place] ([facility]) calcium level 8.8 mg/dL 8.5-10.1 Calcium Level [place] ( [facility]) anion gap 3 mEq/L 8-16 Below low normal Anion Gap [place] ( [facility]) ALT/SGPT 22 U/L 12-78 ALT/SGPT [place] ([facility]) albumin 3.7 gm/dL 3.2-5.2 Albumin [place] ([facility]) bilirubin,total 0.3 mg/dL 0.2-1.0 Bilirubin,total ATHE NA ([facility]) alkaline phosphatase 78 U/L 45-117 Alkaline Phosph atase [place] ([facility]) total protein 6.8 gm/dL 6.4-8.2 Total Protein [place] ( [facility]) albumin/globulin ratio 1.2-2.2 Albumin/globu luis carlos Ratio [place] ([facility]) ID Date Data Source [id number] 03/18/2020 01:09:00 PM EDT [place] ([facility]) Name Value Range Interpretation Code Description Data Sharmila rce(s) Supporting Document(s) white blood count 4.3 10 4.0-10.0 White Blood Count [place] ([facility]) red blood count 4.22 10 4.00-5.40 Red Blood Count [facility] NA ([facility]) hematocrit 40.8 % 36.0-47.0 Hematocrit [place] ([facility]) hemoglobin 13.3 g/dL 12.0-15.5 Hemoglobin [place] ([facility]) mean corpuscular volume 96.7 fL 80.0-96.0 Above high normal Mean Corpuscular Volume [place] ([facility]) platelet count, automated 252 10 150-450 Platelet C ount, Automated [place] ([facility]) mean corpuscular HGB conc 32.6 g/dL 32.0-36.5 Mean Corpu scular HGB Conc [place] ([facility]) mean corpuscular hemoglobin 31.5 pg 27.0-33.0 Mean Cor puscular Hemoglobin [place] ([facility]) red cell distribution width 12.4 % 11.5-14.5 Red Cell Distribution Width [place] ([facility]) mono % 6.8 % 0.0-5.0 Above high normal [place] % [place] ([facility]) lymph % 25.8 % 24.0-44.0 Lymph % [place] ([facility]) neutrophils % 64.1 % 36.0-66.0 Neutrophils % [place] ( [facility]) immature granulocyte % 0.5 % 0-3.0 Immature Gran ulocyte % [place] ([facility]) eos % 1.9 % 0.0-3.0 Eos % [place] ([facility]) baso % 0.9 % 0.0-1.0 Baso % [place] ([facility]) lymph # 1.1 10 1.5-5.0 Below low normal Lymph # [place] ( [facility]) nucleated red blood cell % 0.0 % 0-0 Nucleated Red Blood Cell % [place] ([facility]) mono # 0.3 10 0.0-0.8 [place] # [place] ([facility]) neutrophils # 2.7 10 1.5-8.5 Neutrophils # [place] ( [facility]) eos # 0.1 10 0.0-0.5 Eos # [place] ([facility]) baso # 0.0 10 0.0-0.2 Baso # [place] ([facility]) ID Date Data Source [id number] 03/18/2020 01:09:00 PM EDT [place] ([facility]) Name Value Range Interpretation Code Description Data Sharmila rce(s) Supporting Document(s) Hemoglobin A1c/Hemoglobin.total in Blood 4.9 % Hemoglobin a1C [place] ([facility]) estimated average glucose 94 mg/dL 60-110 Estimated Average Glucose [place] ([facility]) ID Date Data Source [id number] 03/18/2020 01:09:00 PM EDT [place] ([facility]) Name Value Range Interpretation Code Description Data Sharmila rce(s) Supporting Document(s) total 25(oh) vitamin D 25.2 NG/mL 30.0-100.0 Below low normal T otal 25(Oh) Vitamin D [place] ([facility]) ID Date Data Source [id number] 03/18/2020 01:09:00 PM EDT [place] ([facility]) Name Value Range Interpretation Code Description Data Sharmila rce(s) Supporting Document(s) thyroid stimulating hormone 2.710 uIU/mL 0.358-3.740 Thyroid Stimulating Hormone [place] ([facility]) free T4 0.90 NG/dL 0.76-1.46 Free T4 [place] ([facility]) ID Date Data Source [id number] 03/18/2020 01:09:00 PM EDT [place] ([facility]) Name Value Range Interpretation Code Description Data Sharmila rce(s) Supporting Document(s) triglycerides level 153 mg/dL <150 Above high normal Triglycer ides Level [place] ([facility]) HDL cholesterol 91 mg/dL >40 HDL Cholesterol [facility] ([facility]) Cholesterol in LDL [Mass/volume] in Serum or Plasma 71 mg/dL <1 00 LDL Cholesterol [place] ([facility]) cholesterol level 193 mg/dL <200 Cholesterol Level [place] ([facility]) non-HDL-C 102 mg/dL Non-hdl-c [place] ([facility]) cholesterol risk ratio <5 Cholesterol R isk Ratio [place] ([facility]) ID Date Data Source [id number] 03/18/2020 01:09:00 PM EDT [place] ([facility]) Name Value Range Interpretation Code Description Data Sharmila rce(s) Supporting Document(s) glomerular filtration rate >51 Glomerula r Filtration Rate [place] ([facility]) blood urea nitrogen 21 mg/dL 7-18 Above high normal Blood Ure a Nitrogen [place] ([facility]) glucose, fasting 82 mg/dL 70-100 Glucose, Fasting AT [facility] ([facility]) creatinine for GFR 1.02 mg/dL 0.55-1.30 Creatinine for GF R [place] ([facility]) carbon dioxide level 29 mEq/L 21-32 Carbon Dioxide Level [place] ([facility]) sodium level 140 mEq/L 136-145 Sodium Level [place] (No [facility]) potassium serum 5.4 mEq/L 3.5-5.1 Above high normal Potassium Ser um [place] ([facility]) chloride level 108 mEq/L 98-107 Above high normal Chloride Level [place] ([facility]) calcium level 8.8 mg/dL 8.5-10.1 Calcium Level [place] ( [facility]) ALT/SGPT 22 U/L 12-78 ALT/SGPT [place] ([facility]) anion gap 3 mEq/L 8-16 Below low normal Anion Gap [place] ( [facility]) AST/SGOT 20 U/L 7-37 AST/SGOT [place] ([facility]) albumin 3.7 gm/dL 3.2-5.2 Albumin [place] ([facility]) alkaline phosphatase 78 U/L 45-117 Alkaline Phosph atase [place] ([facility]) albumin/globulin ratio 1.2-2.2 Albumin/globu luis carlos Ratio [place] ([facility]) bilirubin,total 0.3 mg/dL 0.2-1.0 Bilirubin,total [facility] ([facility]) total protein 6.8 gm/dL 6.4-8.2 Total Protein [place] ( [facility]) ID Date Data Source [id number] 03/18/2020 01:09:00 PM EDT [place] ([facility]) Name Value Range Interpretation Code Description Data Sharmila rce(s) Supporting Document(s) white blood count 4.3 10 4.0-10.0 White Blood Count [place] ([facility]) hemoglobin 13.3 g/dL 12.0-15.5 Hemoglobin [place] ([facility]) red blood count 4.22 10 4.00-5.40 Red Blood Count [facility] ([facility]) hematocrit 40.8 % 36.0-47.0 Hematocrit [place] ([facility]) mean corpuscular volume 96.7 fL 80.0-96.0 Above high normal Mean Corpuscular Volume [place] ([facility]) red cell distribution width 12.4 % 11.5-14.5 Red Cell Distribution Width [place] ([facility]) mean corpuscular hemoglobin 31.5 pg 27.0-33.0 Mean Cor puscular Hemoglobin [place] ([facility]) mean corpuscular HGB conc 32.6 g/dL 32.0-36.5 Mean Corpu scular HGB Conc [place] ([facility]) platelet count, automated 252 10 150-450 Platelet C ount, Automated [place] ([facility]) mono % 6.8 % 0.0-5.0 Above high normal [place] % [place] ([facility]) lymph % 25.8 % 24.0-44.0 Lymph % [place] ([facility]) neutrophils % 64.1 % 36.0-66.0 Neutrophils % [place] ( [facility]) nucleated red blood cell % 0.0 % 0-0 Nucleated Red Blood Cell % [place] ([facility]) baso % 0.9 % 0.0-1.0 Baso % [place] ([facility]) eos % 1.9 % 0.0-3.0 Eos % [place] ([facility]) immature granulocyte % 0.5 % 0-3.0 Immature Gran ulocyte % [place] ([facility]) neutrophils # 2.7 10 1.5-8.5 Neutrophils # [place] ( [facility]) mono # 0.3 10 0.0-0.8 [place] # [place] ([facility]) lymph # 1.1 10 1.5-5.0 Below low normal Lymph # [place] ( [facility]) eos # 0.1 10 0.0-0.5 Eos # [place] ([facility]) baso # 0.0 10 0.0-0.2 Baso # [place] ([facility]) ID Date Data Source [id number] 03/18/2020 01:09:00 PM EDT [place] ([facility]) Name Value Range Interpretation Code Description Data Sharmila rce(s) Supporting Document(s) Hemoglobin A1c/Hemoglobin.total in Blood 4.9 % Hemoglobin a1C [place] ([facility]) estimated average glucose 94 mg/dL 60-110 Estimated Average Glucose [place] ([facility]) ID Date Data Source [id number] 03/18/2020 01:09:00 PM EDT [place] ([facility]) Name Value Range Interpretation Code Description Data Sharmila rce(s) Supporting Document(s) total 25(oh) vitamin D 25.2 NG/mL 30.0-100.0 Below low normal T otal 25(Oh) Vitamin D [place] ([facility]) ID Date Data Source [id number] 03/18/2020 01:09:00 PM EDT [place] ([facility]) Name Value Range Interpretation Code Description Data Sharmila rce(s) Supporting Document(s) thyroid stimulating hormone 2.710 uIU/mL 0.358-3.740 Thyroid Stimulating Hormone [place] ([facility]) free T4 0.90 NG/dL 0.76-1.46 Free T4 [facility] ([facility]) ID Date Data Source [id number] 03/18/2020 01:09:00 PM EDT [facility] ([facility]) Name Value Range Interpretation Code Description Data Sharmila rce(s) Supporting Document(s) cholesterol level 193 mg/dL <200 Cholesterol Level [place] ([facility]) HDL cholesterol 91 mg/dL >40 HDL Cholesterol ATHE NA ([facility]) triglycerides level 153 mg/dL <150 Above high normal Triglycer ides Level [place] ([facility]) non-HDL-C 102 mg/dL Non-hdl-c [facility] ([facility]) Cholesterol in LDL [Mass/volume] in Serum or Plasma 71 mg/dL <1 00 LDL Cholesterol [facility] ([facility]) cholesterol risk ratio <5 Cholesterol R isk Ratio [facility] ([facility]) ID Date Data Source [id number] 03/18/2020 01:09:00 PM EDT [facility] ([facility]) Name Value Range Interpretation Code Description Data Sharmila rce(s) Supporting Document(s) blood urea nitrogen 21 mg/dL 7-18 Above high normal Blood Ure a Nitrogen [facility] ([facility]) glomerular filtration rate >51 Glomerula r Filtration Rate [facility] ([facility]) glucose, fasting 82 mg/dL 70-100 Glucose, Fasting AT [facility] ([facility]) creatinine for GFR 1.02 mg/dL 0.55-1.30 Creatinine for GF R [place] ([facility]) sodium level 140 mEq/L 136-145 Sodium Level [facility] (No [facility]) chloride level 108 mEq/L 98-107 Above high normal Chloride Level [place] ([facility]) carbon dioxide level 29 mEq/L 21-32 Carbon Dioxide Level [facility] ([facility]) potassium serum 5.4 mEq/L 3.5-5.1 Above high normal Potassium Ser um [place] ([facility]) AST/SGOT 20 U/L 7-37 AST/SGOT [facility] ([facility]) ALT/SGPT 22 U/L 12-78 ALT/SGPT [place] ([facility]) calcium level 8.8 mg/dL 8.5-10.1 Calcium Level [place] ( [facility]) anion gap 3 mEq/L 8-16 Below low normal Anion Gap [place] ( [facility]) alkaline phosphatase 78 U/L 45-117 Alkaline Phosph atase [place] ([facility]) bilirubin,total 0.3 mg/dL 0.2-1.0 Bilirubin,total ATHE NA ([facility]) albumin 3.7 gm/dL 3.2-5.2 Albumin [place] ([facility]) total protein 6.8 gm/dL 6.4-8.2 Total Protein [place] ( [facility]) albumin/globulin ratio 1.2-2.2 Albumin/globu luis carlos Ratio [facility] ([facility]) ID Date Data Source [id number] 03/18/2020 01:09:00 PM EDT [place] ([facility]) Name Value Range Interpretation Code Description Data Sharmila rce(s) Supporting Document(s) white blood count 4.3 10 4.0-10.0 White Blood Count [place] ([facility]) red blood count 4.22 10 4.00-5.40 Red Blood Count [facility] NA ([facility]) mean corpuscular volume 96.7 fL 80.0-96.0 Above high normal Mean Corpuscular Volume [place] ([facility]) hemoglobin 13.3 g/dL 12.0-15.5 Hemoglobin [place] ([facility]) mean corpuscular hemoglobin 31.5 pg 27.0-33.0 Mean Cor puscular Hemoglobin [place] ([facility]) hematocrit 40.8 % 36.0-47.0 Hematocrit [place] ([facility]) platelet count, automated 252 10 150-450 Platelet C ount, Automated [place] ([facility]) neutrophils % 64.1 % 36.0-66.0 Neutrophils % [place] ( [facility]) mean corpuscular HGB conc 32.6 g/dL 32.0-36.5 Mean Corpu scular HGB Conc [place] ([facility]) red cell distribution width 12.4 % 11.5-14.5 Red Cell Distribution Width [place] ([facility]) baso % 0.9 % 0.0-1.0 Baso % [place] ([facility]) mono % 6.8 % 0.0-5.0 Above high normal [place] % [facility] ([facility]) eos % 1.9 % 0.0-3.0 Eos % [place] ([facility]) lymph % 25.8 % 24.0-44.0 Lymph % [place] ([facility]) neutrophils # 2.7 10 1.5-8.5 Neutrophils # [place] ( [facility]) immature granulocyte % 0.5 % 0-3.0 Immature Gran ulocyte % [place] ([facility]) nucleated red blood cell % 0.0 % 0-0 Nucleated Red Blood Cell % [facility] ([facility]) eos # 0.1 10 0.0-0.5 Eos # [place] ([facility]) mono # 0.3 10 0.0-0.8 [place] # [facility] ([facility]) lymph # 1.1 10 1.5-5.0 Below low normal Lymph # [facility] ( [facility]) baso # 0.0 10 0.0-0.2 Baso # [place] ([facility]) ID Date Data Source [id number] 03/18/2020 01:09:00 PM EDT [place] ([facility]) Name Value Range Interpretation Code Description Data Sharmila rce(s) Supporting Document(s) estimated average glucose 94 mg/dL 60-110 Estimated Average Glucose [place] ([facility]) Hemoglobin A1c/Hemoglobin.total in Blood 4.9 % Hemoglobin a1C [place] ([facility]) ID Date Data Source [id number] 03/18/2020 01:09:00 PM EDT [place] ([facility]) Name Value Range Interpretation Code Description Data Sharmila rce(s) Supporting Document(s) total 25(oh) vitamin D 25.2 NG/mL 30.0-100.0 Below low normal T otal 25(Oh) Vitamin D [facility]) ID Date Data Source [id number] 03/18/2020 01:09:00 PM EDT [place] ([facility]) Name Value Range Interpretation Code Description Data Sharmila rce(s) Supporting Document(s) thyroid stimulating hormone 2.710 uIU/mL 0.358-3.740 Thyroid Stimulating Hormone [facility] ([facility]) free T4 0.90 NG/dL 0.76-1.46 Free T4 [place] ([facility]) ID Date Data Source [id number] 03/18/2020 01:09:00 PM EDT [place] ([facility]) Name Value Range Interpretation Code Description Data Sharmila rce(s) Supporting Document(s) triglycerides level 153 mg/dL <150 Above high normal Triglycer ides Level [place] ([facility]) Cholesterol in LDL [Mass/volume] in Serum or Plasma 71 mg/dL <1 00 LDL Cholesterol [place] ([facility]) non-HDL-C 102 mg/dL Non-hdl-c [facility] ([facility]) cholesterol risk ratio <5 Cholesterol R isk Ratio [place] ([facility]) HDL cholesterol 91 mg/dL >40 HDL Cholesterol ATHE NA ([facility]) cholesterol level 193 mg/dL <200 Cholesterol Level [place] ([facility]) ID Date Data Source [id number] 03/18/2020 01:09:00 PM EDT [place] ([facility]) Name Value Range Interpretation Code Description Data Sharmila rce(s) Supporting Document(s) creatinine for GFR 1.02 mg/dL 0.55-1.30 Creatinine for GF R [place] ([facility]) glucose, fasting 82 mg/dL 70-100 Glucose, Fasting AT [facility]) sodium level 140 mEq/L 136-145 Sodium Level [place] (No [facility]) glomerular filtration rate >51 Glomerula r Filtration Rate [facility] ([facility]) blood urea nitrogen 21 mg/dL 7-18 Above high normal Blood Ure a Nitrogen [place] ([facility]) chloride level 108 mEq/L 98-107 Above high normal Chloride Level [place] ([facility]) potassium serum 5.4 mEq/L 3.5-5.1 Above high normal Potassium Ser um [place] ([facility]) carbon dioxide level 29 mEq/L 21-32 Carbon Dioxide Level [place] ([facility]) anion gap 3 mEq/L 8-16 Below low normal Anion Gap [place] ( [facility]) AST/SGOT 20 U/L 7-37 AST/SGOT [place] ([facility]) ALT/SGPT 22 U/L 12-78 ALT/SGPT [place] ([facility]) calcium level 8.8 mg/dL 8.5-10.1 Calcium Level [place] ( [facility]) alkaline phosphatase 78 U/L 45-117 Alkaline Phosph atase [facility] ([facility]) total protein 6.8 gm/dL 6.4-8.2 Total Protein [place] ( [facility]) albumin 3.7 gm/dL 3.2-5.2 Albumin [place] ([facility]) bilirubin,total 0.3 mg/dL 0.2-1.0 Bilirubin,total ATHE NA ([facility]) albumin/globulin ratio 1.2-2.2 Albumin/globu luis carlos Ratio [facility] ([facility]) ID Date Data Source [id number] 03/18/2020 01:09:00 PM EDT [place] ([facility]) Name Value Range Interpretation Code Description Data Sharmila rce(s) Supporting Document(s) white blood count 4.3 10 4.0-10.0 White Blood Count [place] ([facility]) hemoglobin 13.3 g/dL 12.0-15.5 Hemoglobin [place] ([facility]) mean corpuscular volume 96.7 fL 80.0-96.0 Above high normal Mean Corpuscular Volume [place] ([facility]) hematocrit 40.8 % 36.0-47.0 Hematocrit [place] ([facility]) red blood count 4.22 10 4.00-5.40 Red Blood Count ATHE NA ([facility]) red cell distribution width 12.4 % 11.5-14.5 Red Cell Distribution Width [place] ([facility]) mean corpuscular HGB conc 32.6 g/dL 32.0-36.5 Mean Corpu scular HGB Conc [place] ([facility]) mean corpuscular hemoglobin 31.5 pg 27.0-33.0 Mean Cor puscular Hemoglobin [facility] ([facility]) mono % 6.8 % 0.0-5.0 Above high normal [place] % [place] ([facility]) lymph % 25.8 % 24.0-44.0 Lymph % [place] ([facility]) platelet count, automated 252 10 150-450 Platelet C ount, Automated [place] ([facility]) neutrophils % 64.1 % 36.0-66.0 Neutrophils % [place] ( [facility]) immature granulocyte % 0.5 % 0-3.0 Immature Gran ulocyte % [place] ([facility]) baso % 0.9 % 0.0-1.0 Baso % [place] ([facility]) eos % 1.9 % 0.0-3.0 Eos % [place] ([facility]) nucleated red blood cell % 0.0 % 0-0 Nucleated Red Blood Cell % [place] ([facility]) lymph # 1.1 10 1.5-5.0 Below low normal Lymph # [place] ( [facility]) mono # 0.3 10 0.0-0.8 [place] # [place] ([facility]) neutrophils # 2.7 10 1.5-8.5 Neutrophils # [place] ( [facility]) eos # 0.1 10 0.0-0.5 Eos # [place] ([facility]) baso # 0.0 10 0.0-0.2 Baso # [place] ([facility]) ID Date Data Source [id number] 03/18/2020 01:09:00 PM EDT [place] ([facility]) Name Value Range Interpretation Code Description Data Sharmila rce(s) Supporting Document(s) estimated average glucose 94 mg/dL 60-110 Estimated Average Glucose [place] ([facility]) Hemoglobin A1c/Hemoglobin.total in Blood 4.9 % Hemoglobin a1C [place] ([facility]) ID Date Data Source [id number] 03/18/2020 01:09:00 PM EDT [place] ([facility]) Name Value Range Interpretation Code Description Data Sharmila rce(s) Supporting Document(s) total 25(oh) vitamin D 25.2 NG/mL 30.0-100.0 Below low normal T otal 25(Oh) Vitamin D [place] ([facility]) ID Date Data Source [id number] 03/18/2020 01:09:00 PM EDT [place] ([facility]) Name Value Range Interpretation Code Description Data Sharmila rce(s) Supporting Document(s) free T4 0.90 NG/dL 0.76-1.46 Free T4 [facility] ([facility]) thyroid stimulating hormone 2.710 uIU/mL 0.358-3.740 Thyroid Stimulating Hormone [facility] ([facility]) ID Date Data Source [id number] 03/18/2020 01:09:00 PM EDT [place] ([facility]) Name Value Range Interpretation Code Description Data Sharmila rce(s) Supporting Document(s) triglycerides level 153 mg/dL <150 Above high normal Triglycer ides Level [place] ([facility]) cholesterol level 193 mg/dL <200 Cholesterol Level [place] ([facility]) HDL cholesterol 91 mg/dL >40 [facility] Cholesterol in LDL [Mass/volume] in Serum or Plasma 71 mg/dL <1 00 LDL Cholesterol [place] ([facility]) cholesterol risk ratio <5 Cholesterol R isk Ratio [place] ([facility]) non-HDL-C 102 mg/dL Non-hdl-c [place] ([facility]) ID Date Data Source [id number] 03/18/2020 01:09:00 PM EDT [place] ([facility]) Name Value Range Interpretation Code Description Data Sharmila rce(s) Supporting Document(s) glucose, fasting 82 mg/dL 70-100 Glucose, Fasting AT [facility] ([facility]) glomerular filtration rate >51 Glomerula r Filtration Rate [place] ([facility]) creatinine for GFR 1.02 mg/dL 0.55-1.30 Creatinine for GF R [place] ([facility]) sodium level 140 mEq/L 136-145 Sodium Level [facility] ([facility]) blood urea nitrogen 21 mg/dL 7-18 Above high normal Blood Ure a Nitrogen [place] ([facility]) chloride level 108 mEq/L 98-107 Above high normal Chloride Level [place] ([facility]) potassium serum 5.4 mEq/L 3.5-5.1 Above high normal Potassium Ser um [place] ([facility]) anion gap 3 mEq/L 8-16 Below low normal Anion Gap [place] ( [facility]) carbon dioxide level 29 mEq/L 21-32 Carbon Dioxide Level [place] ([facility]) ALT/SGPT 22 U/L 12-78 ALT/SGPT [place] ([facility]) alkaline phosphatase 78 U/L 45-117 Alkaline Phosph atase [place] ([facility]) AST/SGOT 20 U/L 7-37 AST/SGOT [place] ([facility]) calcium level 8.8 mg/dL 8.5-10.1 Calcium Level [place] ( [facility]) albumin/globulin ratio 1.2-2.2 Albumin/globu luis carlos Ratio [place] ([facility]) total protein 6.8 gm/dL 6.4-8.2 Total Protein [place] ( [facility]) bilirubin,total 0.3 mg/dL 0.2-1.0 Bilirubin,total ATHE ([facility]) albumin 3.7 gm/dL 3.2-5.2 Albumin [place] ([facility]) ID Date Data Source [id number] 03/18/2020 01:09:00 PM EDT [place] ([facility]) Name Value Range Interpretation Code Description Data Sharmila rce(s) Supporting Document(s) white blood count 4.3 10 4.0-10.0 White Blood Count [place] ([facility]) red blood count 4.22 10 4.00-5.40 Red Blood Count [facility] NA ([facility]) mean corpuscular hemoglobin 31.5 pg 27.0-33.0 Mean Cor puscular Hemoglobin [place] ([facility]) mean corpuscular volume 96.7 fL 80.0-96.0 Above high normal Mean Corpuscular Volume [place] ([facility]) hematocrit 40.8 % 36.0-47.0 Hematocrit [place] ([facility]) hemoglobin 13.3 g/dL 12.0-15.5 Hemoglobin [place] ([facility]) red cell distribution width 12.4 % 11.5-14.5 Red Cell Distribution Width [place] ([facility]) mean corpuscular HGB conc 32.6 g/dL 32.0-36.5 Mean Corpu scular HGB Conc [place] ([facility]) platelet count, automated 252 10 150-450 Platelet C ount, Automated [place] ([facility]) neutrophils % 64.1 % 36.0-66.0 Neutrophils % [place] ( [facility]) eos % 1.9 % 0.0-3.0 Eos % [place] ([facility]) lymph % 25.8 % 24.0-44.0 Lymph % [place] ([facility]) mono % 6.8 % 0.0-5.0 Above high normal [place] % [place] ([facility]) baso % 0.9 % 0.0-1.0 Baso % [place] ([facility]) immature granulocyte % 0.5 % 0-3.0 Immature Gran ulocyte % [place] ([facility]) nucleated red blood cell % 0.0 % 0-0 Nucleated Red Blood Cell % [place] ([facility]) neutrophils # 2.7 10 1.5-8.5 Neutrophils # [place] ( [facility]) lymph # 1.1 10 1.5-5.0 Below low normal Lymph # [place] ( [facility]) mono # 0.3 10 0.0-0.8 [place] # [place] ([facility]) eos # 0.1 10 0.0-0.5 Eos # [place] ([facility]) baso # 0.0 10 0.0-0.2 Baso # [place] ([facility]) ID Date Data Source [id number] 03/18/2020 01:09:00 PM EDT [place] ([facility]) Name Value Range Interpretation Code Description Data Sharmila rce(s) Supporting Document(s) Hemoglobin A1c/Hemoglobin.total in Blood 4.9 % Hemoglobin a1C [place] ([facility]) estimated average glucose 94 mg/dL 60-110 Estimated Average Glucose [place] ([facility]) ID Date Data Source [id number] 03/18/2020 01:09:00 PM EDT [place] ([facility]) Name Value Range Interpretation Code Description Data Sharmila rce(s) Supporting Document(s) total 25(oh) vitamin D 25.2 NG/mL 30.0-100.0 Below low normal T otal 25(Oh) Vitamin D [place] ([facility]) ID Date Data Source [id number] 03/18/2020 01:09:00 PM EDT [place] ([facility]) Name Value Range Interpretation Code Description Data Sharmila rce(s) Supporting Document(s) thyroid stimulating hormone 2.710 uIU/mL 0.358-3.740 Thyroid Stimulating Hormone [place] ([facility]) free T4 0.90 NG/dL 0.76-1.46 Free T4 [place] ([facility]) ID Date Data Source [id number] 03/18/2020 01:09:00 PM EDT [place] ([facility]) Name Value Range Interpretation Code Description Data Sharmila rce(s) Supporting Document(s) triglycerides level 153 mg/dL <150 Above high normal Triglycer ides Level [place] ([facility]) cholesterol level 193 mg/dL <200 Cholesterol Level [place] ([facility]) cholesterol risk ratio <5 Cholesterol R isk Ratio [place] ([facility]) Cholesterol in LDL [Mass/volume] in Serum or Plasma 71 mg/dL <1 00 LDL Cholesterol [place] ([facility]) non-HDL-C 102 mg/dL Non-hdl-c [place] ([facility]) HDL cholesterol 91 mg/dL >40 HDL Cholesterol [facility] ([facility]) ID Date Data Source [id number] 03/18/2020 01:09:00 PM EDT [place] ([facility]) Name Value Range Interpretation Code Description Data Sharmila rce(s) Supporting Document(s) glucose, fasting 82 mg/dL 70-100 Glucose, Fasting AT [facility] ([facility]) blood urea nitrogen 21 mg/dL 7-18 Above high normal Blood Ure a Nitrogen [place] ([facility]) potassium serum 5.4 mEq/L 3.5-5.1 Above high normal Potassium Ser um [place] ([facility]) creatinine for GFR 1.02 mg/dL 0.55-1.30 Creatinine for GF R [place] ([facility]) chloride level 108 mEq/L 98-107 Above high normal Chloride Level [place] ([facility]) glomerular filtration rate >51 Glomerula r Filtration Rate [place] ([facility]) sodium level 140 mEq/L 136-145 Sodium Level [facility] ([facility]) carbon dioxide level 29 mEq/L 21-32 Carbon Dioxide Level [place] ([facility]) anion gap 3 mEq/L 8-16 Below low normal Anion Gap [place] ( [facility]) calcium level 8.8 mg/dL 8.5-10.1 Calcium Level [place] ( [facility]) AST/SGOT 20 U/L 7-37 AST/SGOT [place] ([facility]) bilirubin,total 0.3 mg/dL 0.2-1.0 Bilirubin,total AT[facility] ([facility]) total protein 6.8 gm/dL 6.4-8.2 Total Protein [place] ( [facility]) albumin 3.7 gm/dL 3.2-5.2 Albumin [place] ([facility]) alkaline phosphatase 78 U/L 45-117 Alkaline Phosph atase [place] ([facility]) ALT/SGPT 22 U/L 12-78 ALT/SGPT [place] ([facility]) albumin/globulin ratio 1.2-2.2 Albumin/globu luis carlos Ratio [place] ([facility]) ID Date Data Source [id number] 03/18/2020 01:09:00 PM EDT [place] ([facility]) Name Value Range Interpretation Code Description Data Sharmila rce(s) Supporting Document(s) white blood count 4.3 10 4.0-10.0 White Blood Count [place] ([facility]) red blood count 4.22 10 4.00-5.40 Red Blood Count ATHE NA ([facility]) hemoglobin 13.3 g/dL 12.0-15.5 Hemoglobin [place] ([facility]) mean corpuscular volume 96.7 fL 80.0-96.0 Above high normal Mean Corpuscular Volume [place] ([facility]) hematocrit 40.8 % 36.0-47.0 Hematocrit [place] ([facility]) platelet count, automated 252 10 150-450 Platelet C ount, Automated [place] ([facility]) mean corpuscular HGB conc 32.6 g/dL 32.0-36.5 Mean Corpu scular HGB Conc [place] ([facility]) mean corpuscular hemoglobin 31.5 pg 27.0-33.0 Mean Cor puscular Hemoglobin [place] ([facility]) red cell distribution width 12.4 % 11.5-14.5 Red Cell Distribution Width [place] ([facility]) lymph % 25.8 % 24.0-44.0 Lymph % [place] ([facility]) eos % 1.9 % 0.0-3.0 Eos % [place] ([facility]) mono % 6.8 % 0.0-5.0 Above high normal [place] % [place] ([facility]) neutrophils % 64.1 % 36.0-66.0 Neutrophils % [place] ( [facility]) neutrophils # 2.7 10 1.5-8.5 Neutrophils # [place] ( [facility]) immature granulocyte % 0.5 % 0-3.0 Immature Gran ulocyte % [place] ([facility]) baso % 0.9 % 0.0-1.0 Baso % [place] ([facility]) nucleated red blood cell % 0.0 % 0-0 Nucleated Red Blood Cell % [place] ([facility]) lymph # 1.1 10 1.5-5.0 Below low normal Lymph # [place] ( [facility]) mono # 0.3 10 0.0-0.8 [place] # [place] ([facility]) baso # 0.0 10 0.0-0.2 Baso # [place] ([facility]) eos # 0.1 10 0.0-0.5 Eos # [place] ([facility]) Procedure Social History Code Duration Value Status Description Data Source(s ) Smoking 03/28/2021 12:00:00 AM EDT Unknown if ever smoked comp leted Unknown if ever smoked [facility] ([facility]) Smoking 03/24/2021 12:00:00 AM EDT Unknown if ever smoked comp leted Unknown if ever smoked [facility] ([facility]) Smoking 03/11/2021 12:00:00 AM EDT Current Smoker completed Curre nt Smoker eCW1 ([facility]) Smoking 03/09/2021 12:00:00 AM EDT Current Smoker completed Curre nt Smoker eCW1 ([facility]) Smoking 03/09/2021 12:00:00 AM EDT Current Smoker completed Curre nt Smoker eCW1 ([facility]) Smoking 03/07/2021 12:00:00 AM EDT Current Smoker completed Curre nt Smoker eCW1 ([facility]) Smoking 03/07/2021 12:00:00 AM EDT Unknown if ever smoked comp leted Unknown if ever smoked [facility] ([facility]) Smoking 02/16/2021 12:00:00 AM EDT Unknown if ever smoked comp leted Unknown if ever smoked [facility] ([facility] [place] Smoking 02/04/2021 12:00:00 AM EDT Unknown if ever smoked comp leted Unknown if ever smoked [facility] ([facility] [place]) Smoking 01/06/2021 12:00:00 AM EDT Unknown if ever smoked comp leted Unknown if ever smoked [facility] ([facility] [place]) Smoking 12/09/2020 12:00:00 AM EDT Unknown if ever smoked comp leted Unknown if ever smoked [facility] ([facility]) Smoking 12/08/2020 12:00:00 AM EDT Unknown if ever smoked comp leted Unknown if ever smoked [facility] ([facility]) Smoking 11/16/2020 12:00:00 AM EDT Unknown if ever smoked comp leted Unknown if ever smoked [facility] ([facility]) Smoking 11/10/2020 12:00:00 AM EDT Current Smoker completed Curre nt Smoker eCW1 ([facility]) Smoking 11/10/2020 12:00:00 AM EDT Current Smoker completed Curre nt Smoker eCW1 ([facility]) Smoking 11/10/2020 12:00:00 AM EDT Current Smoker completed Curre nt Smoker eCW1 ([facility]) Smoking 10/28/2020 12:00:00 AM EDT Unknown if ever smoked comp leted Unknown if ever smoked [facility] ([facility]) Smoking 10/14/2020 12:00:00 AM EDT Unknown if ever smoked comp leted Unknown if ever smoked [facility] ([facility]) Smoking 09/07/2020 12:00:00 AM EDT Unknown if ever smoked comp leted Unknown if ever smoked [facility] ([facility] [place]) Smoking 09/01/2020 12:00:00 AM EDT Unknown if ever smoked comp leted Unknown if ever smoked [facility] ([facility] [place]) Smoking 08/17/2020 12:00:00 AM EDT Unknown if ever smoked comp leted Unknown if ever smoked [facility] ([facility] [place]) Smoking 08/02/2020 12:00:00 AM EST Unknown if ever smoked comp leted Unknown if ever smoked [facility] ([facility] [place]) Smoking 07/14/2020 12:00:00 AM EST Unknown if ever smoked comp leted Unknown if ever smoked [facility] ([facility] [place]) Smoking 06/28/2020 12:00:00 AM EST Unknown if ever smoked comp leted Unknown if ever smoked [facility] ([facility] [place]) Smoking 06/09/2020 12:00:00 AM EST Unknown if ever smoked comp leted Unknown if ever smoked [facility] ([facility] [place]) Smoking 05/17/2020 12:00:00 AM EST Unknown if ever smoked comp leted Unknown if ever smoked [facility] ([facility] [place]) Smoking 04/30/2020 12:00:00 AM EST Unknown if ever smoked comp leted Unknown if ever smoked [facility] ([facility] [place]) Smoking 04/07/2020 12:00:00 AM EST Unknown if ever smoked comp leted Unknown if ever smoked [facility] ([facility] [place]) Smoking 03/29/2020 12:00:00 AM EST Unknown if ever smoked comp leted Unknown if ever smoked [facility] ([facility] [place]) Smoking 03/15/2020 12:00:00 AM EDT Unknown if ever smoked comp leted Unknown if ever smoked [facility] ([facility] [place]) Smoking 03/08/2020 12:00:00 AM EDT Unknown if ever smoked comp leted Unknown if ever smoked [facility] ([facility] [place]) Vital Signs ID Date Data Source UNK Name Value Range Interpretation Code Description Data Source(s) Body height 59 [in_i] 59 [in_i] [facility] ([facility]) 4'11" Body weight 57.607 kg 57.607 kg [facility] ([facility]) Systolic blood pressure 120 mm[Hg] 120 mm[Hg] [facility] Body surface area Derived from formula 1.52 m2 1.52 m2 [facility] ([facility]) Diastolic blood pressure 80 mm[Hg] 80 mm[Hg] [facility] ([facility]) Heart rate 82 /min 82 /min [facility] ([facility]) Oxygen saturation in Arterial blood by Pulse oximetry 99 % 99 % [facility] ([facility]) Body weight 127.00 [lb_av] 127.00 [lb_av] ROBERTEN T ([facility]) Body mass index (BMI) [Ratio] 25.6 kg/m2 25.6 k g/m2 [facility] ([facility], ) Calvin body weight 100 [lb_av] 100 [lb_av] MEDEN T ([facility], ) Body height 60 [in_i] 60 [in_i] LASHONDA ([facility]) Heart rate 95 /min 95 /min eCW1 ([facility]) Body height 60.5 [in_i] 60.5 [in_i] eCW1 ([facility]) Body weight 120 [lb_av] 120 [lb_av] eCW1 ([facility]) Respiratory rate 20 /min 20 /min eCW1 ([facility]) Body mass index (BMI) [Ratio] 23.05 kg/m2 23.05 kg/m2 eCW1 ([facility]) Body temperature 96.1 [degF] 96.1 [degF] eCW1 ( [facility]) Systolic blood pressure 132 mm[Hg] 132 mm[Hg] e CW1 ([facility]) Diastolic blood pressure 78 mm[Hg] 78 mm[Hg] eCW1 ([facility]) Body weight 54.43 kg 54.43 kg eCW1 ([facility]) Diastolic blood pressure 88 mm[Hg] 88 mm[Hg] LASHONDA ([facility]) Body height 60 [in_i] 60 [in_i] LASHONDA ([facility]) Body mass index (BMI) [Ratio] 23.9 kg/m2 23.9 k g/m2 LASHONDA ([facility]) Systolic blood pressure 123 mm[Hg] 123 mm[Hg] A THENA ([facility]) Body weight 1956 [oz_av] 1956 [oz_av] LASHONDA ([facility]) Diastolic blood pressure 88 mm[Hg] 88 mm[Hg] LASHONDA ([facility]) Body height 60 [in_i] 60 [in_i] LASHONDA ([facility]) Body mass index (BMI) [Ratio] 23.9 kg/m2 23.9 k g/m2 LASHONDA ([facility]) Systolic blood pressure 123 mm[Hg] 123 mm[Hg] A THENA ([facility]) Body weight 1956 [oz_av] 1956 [oz_av] LASHONDA ([facility]) Diastolic blood pressure 85 mm[Hg] 85 mm[Hg] LASHONDA ([facility]) Body height 57 [in_i] 57 [in_i] LASHONDA ([facility]) Systolic blood pressure 112 mm[Hg] 112 mm[Hg] A THENA ([facility]) Diastolic blood pressure 85 mm[Hg] 85 mm[Hg] LASHONDA ([facility]) Body height 57 [in_i] 57 [in_i] LASHONDA ([facility]) Systolic blood pressure 112 mm[Hg] 112 mm[Hg] A THENA ([facility]) Diastolic blood pressure 85 mm[Hg] 85 mm[Hg] LASHONDA ([facility]) Body height 57 [in_i] 57 [in_i] LASHONDA ([facility]) Systolic blood pressure 112 mm[Hg] 112 mm[Hg] A THENA ([facility]) Body height 57 [in_i] 57 [in_i] LASHONDA ([facility]) Body height 57 [in_i] 57 [in_i] LASHONDA ([facility]) Body height 57 [in_i] 57 [in_i] LASHONDA ([facility]) Body height 57 [in_i] 57 [in_i] LASHONDA ([facility]) Body height 57 [in_i] 57 [in_i] LASHONDA ([facility]) Body height 57 [in_i] 57 [in_i] LASHONDA ([facility]) Diastolic blood pressure 95 mm[Hg] 95 mm[Hg] LASHONDA ([facility]) Body height 60 [in_i] 60 [in_i] LASHONDA ([facility]) Body mass index (BMI) [Ratio] 23.9 kg/m2 23.9 k g/m2 LASHONDA ([facility]) Systolic blood pressure 137 mm[Hg] 137 mm[Hg] A THENA ([facility]) Body weight 1960 [oz_av] 1960 [oz_av] LASHONDA ([facility]) Diastolic blood pressure 95 mm[Hg] 95 mm[Hg] LASHONDA ([facility]) Body height 60 [in_i] 60 [in_i] LASHONDA ([facility]) Body mass index (BMI) [Ratio] 23.9 kg/m2 23.9 k g/m2 LASHONDA ([facility]) Systolic blood pressure 137 mm[Hg] 137 mm[Hg] A THENA ([facility]) Body weight 1960 [oz_av] 1960 [oz_av] LASHONDA ([facility]) Body weight 1960 [oz_av] 1960 [oz_av] LASHONDA ([facility]) Diastolic blood pressure 95 mm[Hg] 95 mm[Hg] LASHONDA ([facility]) Body height 60 [in_i] 60 [in_i] LASHONDA ([facility]) Body mass index (BMI) [Ratio] 23.9 kg/m2 23.9 k g/m2 LASHONDA ([facility]) Systolic blood pressure 137 mm[Hg] 137 mm[Hg] A THENA ([facility]) Body mass index (BMI) [Ratio] 24.7 kg/m2 24.7 k g/m2 THERESE ([facility], ) Body surface area Derived from formula 1.50 m2 1.50 m2 THERESE ([facility], ) Body weight 122.50 [lb_av] 122.50 [lb_av] MEDEN T ([facility], ) Calvin body weight 100 [lb_av] 100 [lb_av] MEDEN T ([facility], ) Body height 59 [in_i] 59 [in_i] THERESE ([facility], ) 4'11" Systolic blood pressure 186 mm[Hg] 186 mm[Hg] M VADIM ([facility], ) FAC ENGINEER Recheck: 156/90 Diastolic blood pressure 102 mm[Hg] 102 mm[Hg] THERESE ([facility], ) FAC 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 Recheck: 156/90 Heart rate 86 /min 86 /min THERESE ([facility], ) Oxygen saturation in Arterial blood by Pulse oximetry 98 % 98 % THERESE ([facility], ) Body weight 55.566 kg 55.566 kg THERESE ([facility], ) Body height 57 [in_i] 57 [in_i] LASHONDA ([facility]) Diastolic blood pressure 97 mm[Hg] 97 mm[Hg] LASHONDA ([facility]) Systolic blood pressure 140 mm[Hg] 140 mm[Hg] A THENA ([facility]) Diastolic blood pressure 97 mm[Hg] 97 mm[Hg] LASHONDA ([facility]) Body height 57 [in_i] 57 [in_i] LASHONDA ([facility]) Systolic blood pressure 140 mm[Hg] 140 mm[Hg] A THENA ([facility]) Diastolic blood pressure 97 mm[Hg] 97 mm[Hg] LASHONDA ([facility]) Body height 57 [in_i] 57 [in_i] LASHONDA ([facility]) Systolic blood pressure 140 mm[Hg] 140 mm[Hg] A THENA ([facility]) Diastolic blood pressure 97 mm[Hg] 97 mm[Hg] LASHONDA ([facility]) Body height 57 [in_i] 57 [in_i] LASHONDA ([facility]) Systolic blood pressure 140 mm[Hg] 140 mm[Hg] A THENA ([facility]) Diastolic blood pressure 97 mm[Hg] 97 mm[Hg] LASHONDA ([facility]) Body height 57 [in_i] 57 [in_i] LASHONDA ([facility]) Systolic blood pressure 140 mm[Hg] 140 mm[Hg] A THENA ([facility]) Diastolic blood pressure 97 mm[Hg] 97 mm[Hg] LASHONDA ([facility]) Body height 57 [in_i] 57 [in_i] LASHONDA ([facility]) Systolic blood pressure 140 mm[Hg] 140 mm[Hg] A THENA ([facility]) Diastolic blood pressure 97 mm[Hg] 97 mm[Hg] LASHONDA ([facility]) Body height 57 [in_i] 57 [in_i] LASHONDA ([facility]) Systolic blood pressure 140 mm[Hg] 140 mm[Hg] A THENA ([facility]) Diastolic blood pressure 97 mm[Hg] 97 mm[Hg] LASHONDA ([facility]) Body height 57 [in_i] 57 [in_i] LASHONDA ([facility]) Systolic blood pressure 140 mm[Hg] 140 mm[Hg] A THENA ([facility]) Oxygen saturation in Arterial blood by Pulse oximetry 98 % 98 % MEDENT ([facility]) Body temperature 97.6 [degF] 97.6 [degF] MEDENT ([facility]) Body height 59 [in_i] 59 [in_i] MEDENT ([facility]) 4'11" Body weight 128.00 [lb_av] 128.00 [lb_av] MEDEN T ([facility]) Body mass index (BMI) [Ratio] 25.9 kg/m2 25.9 k g/m2 [facility] ([facility]) Calvin body weight 100 [lb_av] 100 [lb_av] MEDEN T ([facility]) Body weight 58.061 kg 58.061 kg [facility] ([facility]) Body surface area Derived from formula 1.53 m2 1.53 m2 [facility] ([facility]) Oxygen saturation in Arterial blood by Pulse oximetry 98 % 98 % [facility] ([facility]) Body temperature 97.6 [degF] 97.6 [degF] MEDENT ([facility]) Body height 59 [in_i] 59 [in_i] MEDENT ([facility]) 4'11" Body weight 128.00 [lb_av] 128.00 [lb_av] MEDEN T ([facility]) Body mass index (BMI) [Ratio] 25.9 kg/m2 25.9 k g/m2 [facility] ([facility]) Calvin body weight 100 [lb_av] 100 [lb_av] MEDEN T ([facility]) Body weight 58.061 kg 58.061 kg MEDENT ([facility]) Body surface area Derived from formula 1.53 m2 1.53 m2 [facility] ([facility]) Systolic blood pressure 130 mm[Hg] 130 mm[Hg] M EDENT ([facility], ) Diastolic blood pressure 80 mm[Hg] 80 mm[Hg] MEDENT ([facility], ) Heart rate 86 /min 86 /min MEDENT ([facility], ) Body weight 124.8 [lb_av] 124.8 [lb_av] eCW1 ([facility]) Body height 60.5 [in_i] 60.5 [in_i] eCW1 ([facility]) Body mass index (BMI) [Ratio] 23.97 kg/m2 23.97 kg/m2 eCW1 ([facility]) Heart rate 83 /min 83 /min eCW1 ([facility]) Respiratory rate 20 /min 20 /min eCW1 ([facility]) Body temperature 97.6 [degF] 97.6 [degF] eCW1 ( [facility]) Systolic blood pressure 116 mm[Hg] 116 mm[Hg] e CW1 ([facility]) Diastolic blood pressure 72 mm[Hg] 72 mm[Hg] eCW1 ([facility]) Body height 60 [in_i] 60 [in_i] LASHONDA ([facility]) Body height 60 [in_i] 60 [in_i] LASHONDA ([facility]) Body height 60 [in_i] 60 [in_i] LASHONDA ([facility]) Body height 60 [in_i] 60 [in_i] LASHONDA ([facility]) Body height 60 [in_i] 60 [in_i] LASHONDA ([facility]) Diastolic blood pressure 0 mm[Hg] Normal (applies to non-numeric results) 0 mm[Hg] [facility] Body height 0.00 in Normal (applies to non-numeric resu lts) 0.00 in [facility] ([facility]) Body weight Measured 0.00 lbs Normal (applies to n on-numeric results) 0.00 lbs [facility] ([facility]) Body mass index (BMI) [Ratio] 0.00 kg/m2 No rmal (applies to non-numeric results) 0.00 kg/m2 [facility] ([facility]) Systolic blood pressure 0 mm[Hg] Normal (applies t o non-numeric results) 0 mm[Hg] [facility] ([facility] [place]) Diastolic blood pressure 97 mm[Hg] 97 mm[Hg] LASHONDA ([facility]) Body height 57 [in_i] 57 [in_i] LASHONDA ([facility]) Body mass index (BMI) [Ratio] 27 kg/m2 27 kg/ m2 LASHONDA ([facility]) Systolic blood pressure 145 mm[Hg] 145 mm[Hg] A THENA ([facility]) Body weight 125 [lb_av] 125 [lb_av] LASHONDA ([facility]) Diastolic blood pressure 97 mm[Hg] 97 mm[Hg] LASHONDA ([facility]) Body height 57 [in_i] 57 [in_i] LASHONDA ([facility]) Body mass index (BMI) [Ratio] 27 kg/m2 27 kg/ m2 LASHONDA ([facility]) Systolic blood pressure 145 mm[Hg] 145 mm[Hg] A THENA ([facility]) Body weight 125 [lb_av] 125 [lb_av] LASHONDA ([facility]) Diastolic blood pressure 97 mm[Hg] 97 mm[Hg] LASHONDA ([facility]) Body mass index (BMI) [Ratio] 27 kg/m2 27 kg/ m2 LASHONDA ([facility]) Systolic blood pressure 145 mm[Hg] 145 mm[Hg] A THENA ([facility]) Body weight 125 [lb_av] 125 [lb_av] LASHONDA ([facility]) Body height 57 [in_i] 57 [in_i] LASHONDA ([facility]) Body height 57 [in_i] 57 [in_i] LASHONDA ([facility]) Diastolic blood pressure 97 mm[Hg] 97 mm[Hg] LASHONDA ([facility]) Diastolic blood pressure 97 mm[Hg] 97 mm[Hg] LASHONDA ([facility]) Body mass index (BMI) [Ratio] 27 kg/m2 27 kg/ m2 LASHONDA ([facility]) Body height 57 [in_i] 57 [in_i] LASHONDA ([facility]) Body mass index (BMI) [Ratio] 27 kg/m2 27 kg/ m2 LASHONDA ([facility]) Systolic blood pressure 145 mm[Hg] 145 mm[Hg] A THENA ([facility]) Systolic blood pressure 145 mm[Hg] 145 mm[Hg] A THENA ([facility]) Body weight 125 [lb_av] 125 [lb_av] LASHONAD ([facility]) Body weight 125 [lb_av] 125 [lb_av] LASHONDA ([facility]) Diastolic blood pressure 97 mm[Hg] 97 mm[Hg] LASHONDA ([facility]) Body height 57 [in_i] 57 [in_i] LASHONDA ([facility]) Body mass index (BMI) [Ratio] 27 kg/m2 27 kg/ m2 LASHONDA ([facility]) Systolic blood pressure 145 mm[Hg] 145 mm[Hg] A THENA ([facility]) Body weight 125 [lb_av] 125 [lb_av] LASHONDA ([facility]) Diastolic blood pressure 97 mm[Hg] 97 mm[Hg] LASHONDA ([facility]) Body height 57 [in_i] 57 [in_i] LASHONDA ([facility]) Body mass index (BMI) [Ratio] 27 kg/m2 27 kg/ m2 LASHONDA ([facility]) Systolic blood pressure 145 mm[Hg] 145 mm[Hg] A THENA ([facility]) Body weight 125 [lb_av] 125 [lb_av] LASHONDA ([facility]) Diastolic blood pressure 97 mm[Hg] 97 mm[Hg] LASHONDA ([facility]) Body height 57 [in_i] 57 [in_i] LASHONDA ([facility]) Body mass index (BMI) [Ratio] 27 kg/m2 27 kg/ m2 LASHONDA ([facility]) Systolic blood pressure 145 mm[Hg] 145 mm[Hg] A THENA ([facility]) Body weight 125 [lb_av] 125 [lb_av] LASHONDA ([facility]) Diastolic blood pressure 97 mm[Hg] 97 mm[Hg] LASHONDA ([facility]) Body height 57 [in_i] 57 [in_i] LASHONDA ([facility]) Body mass index (BMI) [Ratio] 27 kg/m2 27 kg/ m2 LASHONDA ([facility]) Systolic blood pressure 145 mm[Hg] 145 mm[Hg] A THENA ([facility]) Body weight 125 [lb_av] 125 [lb_av] LASHONDA ([facility]) Diastolic blood pressure 97 mm[Hg] 97 mm[Hg] LASHONDA ([facility]) Body height 57 [in_i] 57 [in_i] LASHONDA ([facility]) Body mass index (BMI) [Ratio] 27 kg/m2 27 kg/ m2 LASHONDA ([facility]) Systolic blood pressure 145 mm[Hg] 145 mm[Hg] A THENA ([facility]) Body weight 125 [lb_av] 125 [lb_av] LASHONDA ([facility]) Body height 0.00 in Normal (applies to non-numeric resu lts) 0.00 in [facility] ([facility]) Body weight Measured 0.00 lbs Normal (applies to n on-numeric results) 0.00 lbs [facility] ([facility]) Body mass index (BMI) [Ratio] 0.00 kg/m2 No rmal (applies to non-numeric results) 0.00 kg/m2 [facility] ([facility]) Systolic blood pressure 0 mm[Hg] Normal (applies t o non-numeric results) 0 mm[Hg] [facility] ([facility]) Diastolic blood pressure 0 mm[Hg] Normal (applies to non-numeric results) 0 mm[Hg] [facility] ([facility]) Diastolic blood pressure 99 mm[Hg] 99 mm[Hg] LASHONDA ([facility]) Body height 60 [in_i] 60 [in_i] LASHONDA ([facility]) Body mass index (BMI) [Ratio] 26.1 kg/m2 26.1 k g/m2 LASHONDA ([facility]) Systolic blood pressure 134 mm[Hg] 134 mm[Hg] A THENA ([facility]) Body weight 2136 [oz_av] 2136 [oz_av] LASHONDA ([facility]) Diastolic blood pressure 99 mm[Hg] 99 mm[Hg] LASHONDA ([facility]) Body height 60 [in_i] 60 [in_i] LASHONDA ([facility]) Body mass index (BMI) [Ratio] 26.1 kg/m2 26.1 k g/m2 LASHONDA ([facility]) Systolic blood pressure 134 mm[Hg] 134 mm[Hg] [facility] Body weight 2136 [oz_av] 2136 [oz_av] LASHONDA ([facility]) Diastolic blood pressure 99 mm[Hg] 99 mm[Hg] LASHONDA ([facility]) Body height 60 [in_i] 60 [in_i] LASHONDA ([facility]) Body mass index (BMI) [Ratio] 26.1 kg/m2 26.1 k g/m2 LASHONDA ([facility]) Systolic blood pressure 134 mm[Hg] 134 mm[Hg] A THENA ([facility]) Body weight 2136 [oz_av] 2136 [oz_av] LASHONDA ([facility]) Diastolic blood pressure 99 mm[Hg] 99 mm[Hg] LASHONDA ([facility]) Body height 60 [in_i] 60 [in_i] LASHONDA ([facility]) Body mass index (BMI) [Ratio] 26.1 kg/m2 26.1 k g/m2 LASHONDA ([facility]) Systolic blood pressure 134 mm[Hg] 134 mm[Hg] A THENA ([facility]) Body weight 2136 [oz_av] 2136 [oz_av] LASHONDA ([facility]) Diastolic blood pressure 99 mm[Hg] 99 mm[Hg] LASHONDA ([facility] [facility] Body height 60 [in_i] 60 [in_i] LASHONDA ([facility]) Body mass index (BMI) [Ratio] 26.1 kg/m2 26.1 k g/m2 LASHONDA ([facility]) Systolic blood pressure 134 mm[Hg] 134 mm[Hg] A ZULMAA ([facility]) Body weight 2136 [oz_av] 2136 [oz_av] LASHONDA ([facility]) Diastolic blood pressure 99 mm[Hg] 99 mm[Hg] LASHONDA ([facility]) Body height 60 [in_i] 60 [in_i] LASHONDA ([facility]) Body mass index (BMI) [Ratio] 26.1 kg/m2 26.1 k g/m2 LASHONDA ([facility]) Systolic blood pressure 134 mm[Hg] 134 mm[Hg] A JAMAL ([facility]) Body weight 2136 [oz_av] 2136 [oz_av] LASHONDA ([facility]) Body height 0.00 in Normal (applies to non-numeric resu lts) 0.00 in [facility] ([facility]) Body weight Measured 0.00 lbs Normal (applies to n on-numeric results) 0.00 lbs [facility] ([facility]) Body mass index (BMI) [Ratio] 0.00 kg/m2 No rmal (applies to non-numeric results) 0.00 kg/m2 [facility] ([facility]) Systolic blood pressure 0 mm[Hg] Normal (applies t o non-numeric results) 0 mm[Hg] [facility] ([facility]) Diastolic blood pressure 0 mm[Hg] Normal (applies to non-numeric results) 0 mm[Hg] [facility] ([facility]) Body height 59 [in_i] 59 [in_i] [facility] 4'11" Body weight 133.00 [lb_av] 133.00 [lb_av] ISABELLA T ([facility], ) Body mass index (BMI) [Ratio] 26.9 kg/m2 26.9 k g/m2 MEDWILLIAM ([facility], ) Calvin body weight 100 [lb_av] 100 [lb_av] MED[facility] T [facility] Body weight 60.329 kg 60.329 kg [facility] ([facility]) Body surface area Derived from formula 1.55 m2 1.55 m2 [facility] ([facility]) Body height 59 [in_i] 59 [in_i] [facility] ([facility]) 4'11" Body weight 133.00 [lb_av] 133.00 [lb_av] MEDEN T ([facility]) Body mass index (BMI) [Ratio] 26.9 kg/m2 26.9 k g/m2 [facility] ([facility]) Calvin body weight 100 [lb_av] 100 [facility]_av[facility] Body weight 60.329 kg 60.329 kg [facility] ([facility]) Body surface area Derived from formula 1.55 m2 1.55 m2 [facility] ([facility]) Systolic blood pressure 140 mm[Hg] 140 mm[Hg] M EDENT ([facility]) Diastolic blood pressure 90 mm[Hg] 90 mm[Hg] [facility] ([facility]) Diastolic blood pressure 89 mm[Hg] 89 mm[Hg] [place] ([facility]) Body mass index (BMI) [Ratio] 25.8 kg/m2 25.8 k g/m2 LASHONDA ([facility]) Systolic blood pressure 131 mm[Hg] 131 mm[Hg] A [facility] ([facility]) Body weight 2116 [oz_av] 2116 [oz_av] LASHONDA ([facility]) Body height 60 [in_i] 60 [in_i] LASHONDA ([facility]) Diastolic blood pressure 89 mm[Hg] 89 mm[Hg] LASHONDA ([facility]) Body height 60 [in_i] 60 [in_i] LASHONDA ([facility]) Body mass index (BMI) [Ratio] 25.8 kg/m2 25.8 k g/m2 LASHONDA ([facility]) Systolic blood pressure 131 mm[Hg] 131 mm[Hg] A [facility] ([facility]) Body weight 2116 [oz_av] 2116 [oz_av] LASHONDA ([facility]) Diastolic blood pressure 89 mm[Hg] 89 mm[Hg] LASHONDA ([facility]) Body height 60 [in_i] 60 [in_i] LASHONDA ([facility]) Body mass index (BMI) [Ratio] 25.8 kg/m2 25.8 k g/m2 LASHONDA ([facility]) Systolic blood pressure 131 mm[Hg] 131 mm[Hg] A THENA ([facility]) Body weight 2116 [oz_av] 2116 [oz_av] LASHONDA ([facility]) Diastolic blood pressure 89 mm[Hg] 89 mm[Hg] LASHONDA ([facility]) Body height 60 [in_i] 60 [in_i] LASHONDA ([facility]) Body mass index (BMI) [Ratio] 25.8 kg/m2 25.8 k g/m2 LASHONDA ([facility]) Systolic blood pressure 131 mm[Hg] 131 mm[Hg] A THENA ([facility]) Body weight 2116 [oz_av] 2116 [oz_av] LASHONDA ([facility]) Systolic blood pressure 131 mm[Hg] 131 mm[Hg] A THENA ([facility]) Body weight 2116 [oz_av] 2116 [oz_av] LASHONDA ([facility]) Diastolic blood pressure 89 mm[Hg] 89 mm[Hg] LASHONDA ([facility]) Body height 60 [in_i] 60 [in_i] LASHONDA ([facility]) Body mass index (BMI) [Ratio] 25.8 kg/m2 25.8 k g/m2 LASHONDA ([facility]) Diastolic blood pressure 89 mm[Hg] 89 mm[Hg] LASHONDA ([facility]) Body height 60 [in_i] 60 [in_i] LASHONDA ([facility]) Body mass index (BMI) [Ratio] 25.8 kg/m2 25.8 k g/m2 LASHONDA ([facility]) Systolic blood pressure 131 mm[Hg] 131 mm[Hg] A THENA ([facility]) Body weight 2116 [oz_av] 2116 [oz_av] LASHONDA ([facility]) Body weight 2116 [oz_av] 2116 [oz_av] LASHONDA ([facility]) Systolic blood pressure 131 mm[Hg] 131 mm[Hg] [facility] Diastolic blood pressure 89 mm[Hg] 89 mm[Hg] LASHONDA ([facility]) Body height 60 [in_i] 60 [in_i] LASHONDA ([facility]) Body mass index (BMI) [Ratio] 25.8 kg/m2 25.8 k g/m2 LASHONDA ([facility]) Diastolic blood pressure 89 mm[Hg] 89 mm[Hg] LASHONDA ([facility]) Body height 60 [in_i] 60 [in_i] LASHONDA ([facility]) Body mass index (BMI) [Ratio] 25.8 kg/m2 25.8 k g/m2 LASHONDA ([facility]) Systolic blood pressure 131 mm[Hg] 131 mm[Hg] A THENA ([facility]) Body weight 2116 [oz_av] 2116 [oz_av] LASHONDA ([facility]) Body height 60 [in_i] 60 [in_i] LASHONDA ([facility]) Body height 60 [in_i] 60 [in_i] LASHONDA ([facility]) Body height 60 [in_i] 60 [in_i] LASHONDA ([facility]) Body height 60 [in_i] 60 [in_i] LASHONDA ([facility]) Body height 60 [in_i] 60 [in_i] LASHONDA ([facility]) Body height 60 [in_i] 60 [in_i] LASHONDA ([facility]) Body height 60 [in_i] 60 [in_i] LASHONDA ([facility]) Body height 0.00 in Normal (applies to non-numeric resu lts) [facility] Body weight Measured 0.00 lbs Normal (applies to n on-numeric results) 0.00 lbs [facility] ([facility]) Body mass index (BMI) [Ratio] 0.00 kg/m2 No rmal (applies to non-numeric results) 0.00 kg/m2 [facility] ([facility]) Systolic blood pressure 0 mm[Hg] Normal (applies t o non-numeric results) 0 mm[Hg] [facility] ([facility]) Diastolic blood pressure 0 mm[Hg] Normal (applies to non-numeric results) 0 mm[Hg] [facility] ([facility]) Patient Treatment Plan of Care Planned Activity Planned Date Details Description Data Source (s) Fluconazole 150 MG Oral Tablet [Diflucan] 03/08/2021 12:00:00 AM ED T eCW1 ([facility]) Fluconazole 150 MG Oral Tablet [Diflucan] 03/08/2021 12:00:00 AM ED T eCW1 ([facility]) Fluconazole 150 MG Oral Tablet [Diflucan] 03/08/2021 12:00:00 AM ED T eCW1 ([facility]) Fluconazole 150 MG Oral Tablet [Diflucan] 03/08/2021 12:00:00 AM ED T eCW1 ([facility]) Metronidazole 500 MG Oral Tablet [Flagyl] 11/15/2020 12:00:00 AM ED T eCW1 ([facility]) Metronidazole 500 MG Oral Tablet [Flagyl] 11/15/2020 12:00:00 AM ED T eCW1 ([facility]) Metronidazole 500 MG Oral Tablet [Flagyl] 11/15/2020 12:00:00 AM ED T eCW1 ([facility]) Estrogens, Conjugated (FPC) 0.625 MG/ML Vaginal Cream [Premarin] 11/10/2020 12:00:00 AM EDT eCW1 ([facility]) Phenazopyridine hydrochloride 100 MG Oral Tablet [Pyri dium] 11/10/2020 12:00:00 AM EDT eCW1 ([facility]) Estrogens, Conjugated (FPC) 0.625 MG/ML Vaginal Cream [Premarin] 11/10/2020 12:00:00 AM EDT eCW1 ([facility]) Phenazopyridine hydrochloride 100 MG Oral Tablet [Pyri dium] 11/10/2020 12:00:00 AM EDT eCW1 ([facility]) Estrogens, Conjugated (FPC) 0.625 MG/ML Vaginal Cream [Premarin] 11/10/2020 12:00:00 AM EDT eCW1 ([facility]) Phenazopyridine hydrochloride 100 MG Oral Tablet [Pyri dium] 11/10/2020 12:00:00 AM EDT eCW1 ([facility]) Trazodone Hydrochloride 100 MG Oral Tablet LASHONDA ([facility]) Mirtazapine 7.5 MG Oral Tablet LASHONDA ([facility]) Mirtazapine 30 MG Oral Tablet LASHONDA ([facility]) Mirtazapine 15 MG Oral Tablet LASHONDA ([facility]) Trazodone Hydrochloride 100 MG Oral Tablet LASHONDA ([facility]) Mirtazapine 7.5 MG Oral Tablet LASHONDA ([facility]) Mirtazapine 30 MG Oral Tablet LASHONDA ([facility]) Mirtazapine 15 MG Oral Tablet LASHONDA ([facility]) Trulance 3 mg tablet TAKE ONE TABLET BY MOUTH EVERY DAY FOR IBS WITH CONSTIPATION LASHONDA ([facility]) Trazodone Hydrochloride 100 MG Oral Tablet LASHONDA ([facility]) trazodone LASHONDA ([facility]) tizanidine 4 MG Oral Tablet LASHONDA ([facility]) Sucralfate 1000 MG Oral Tablet LASHONDA ([facility]) quetiapine 50 MG Oral Tablet LASHONDA ([facility]) Phenazopyridine hydrochloride 100 MG Oral Tablet LASHONDA ([facility]) pantoprazole 40 MG Delayed Release Oral Tablet LASHONDA ([facility]) Naproxen 500 MG Oral Tablet LASHONDA ([facility]) Mirtazapine 7.5 MG Oral Tablet LASHONDA ([facility]) Mirtazapine 30 MG Oral Tablet LASHONDA ([facility]) Mirtazapine 15 MG Oral Tablet LASHONDA ([facility]) Metronidazole 500 MG Oral Tablet LASHONDA ([facility]) Lisinopril 10 MG Oral Tablet LASHONDA ([facility]) fluticasone 113 mcg-salmeterol 14 mcg/ac tuation breath activated powdr INHALE ONE PUFF BY MOUTH EVERY 12 HOURS LASHONDA ([facility]) citalopram LASHONDA ([facility]) buspirone hydrochloride 30 MG Oral Tablet LASHONDA ([facility]) buspirone LASHONDA ([facility]) Aspirin 81 MG Oral Tablet AT WALLY ([facility]) Acetaminophen 325 MG Oral Tablet LASHONDA ([facility]) Trulance 3 mg tablet TAKE ONE TABLET BY MOUTH EVERY DAY FOR IBS WITH CONSTIPATION LASHONDA ([facility]) Trazodone Hydrochloride 100 MG Oral Tablet LASHONDA ([facility]) trazodone LASHONDA ([facility]) tizanidine 4 MG Oral Tablet LASHONDA ([facility]) Sucralfate 1000 MG Oral Tablet LASHONDA ([facility]) quetiapine 50 MG Oral Tablet LASHONDA ([facility]) Phenazopyridine hydrochloride 100 MG Oral Tablet LASHONDA ([facility]) pantoprazole 40 MG Delayed Release Oral Tablet LASHONDA ([facility]) Naproxen 500 MG Oral Tablet LASHONDA ([facility]) Mirtazapine 7.5 MG Oral Tablet LASHONDA ([facility]) Mirtazapine 30 MG Oral Tablet LASHONDA ([facility]) Mirtazapine 15 MG Oral Tablet LASHONDA ([facility]) Metronidazole 500 MG Oral Tablet LASHONDA ([facility]) Lisinopril 10 MG Oral Tablet LASHONDA ([facility]) fluticasone 113 mcg-salmeterol 14 mcg/ac tuation breath activated powdr INHALE ONE PUFF BY MOUTH EVERY 12 HOURS LASHONDA ([facility]) citalopram LASHONDA ([facility]) buspirone hydrochloride 30 MG Oral Tablet LASHONDA ([facility]) buspirone LASHONDA ([facility]) Aspirin 81 MG Oral Tablet AT WALLY ([facility]) Acetaminophen 325 MG Oral Tablet LASHONDA ([facility]) Trazodone Hydrochloride 100 MG Oral Tablet LASHONDA ([facility]) Mirtazapine 7.5 MG Oral Tablet LASHONDA ([facility]) Mirtazapine 30 MG Oral Tablet LASHONDA ([facility]) Mirtazapine 15 MG Oral Tablet LASHONDA ([facility]) Mirtazapine 7.5 MG Oral Tablet LASHONDA ([facility]) Mirtazapine 30 MG Oral Tablet LASHONDA ([facility]) Mirtazapine 15 MG Oral Tablet LASHONDA ([facility]) Trazodone Hydrochloride 100 MG Oral Tablet LASHONDA ([facility]) Mirtazapine 7.5 MG Oral Tablet LASHONDA ([facility]) Mirtazapine 30 MG Oral Tablet LASHONDA ([facility]) Mirtazapine 15 MG Oral Tablet LASHONDA ([facility]) Trulance 3 mg tablet TAKE ONE TABLET BY MOUTH EVERY DAY FOR IBS WITH CONSTIPATION LASHONDA ([facility]) Trazodone Hydrochloride 100 MG Oral Tablet LASHONDA ([facility]) trazodone LASHONDA ([facility]) pantoprazole 40 MG Delayed Release Oral Tablet LASHONDA ([facility]) Mirtazapine 7.5 MG Oral Tablet LASHONDA ([facility]) Mirtazapine 30 MG Oral Tablet LASHONDA ([facility]) Mirtazapine 15 MG Oral Tablet LASHONDA ([facility]) Lisinopril 10 MG Oral Tablet LASHONDA ([facility]) citalopram LASHONDA ([facility]) buspirone LASHONDA ([facility]) Trulance 3 mg tablet TAKE ONE TABLET BY MOUTH EVERY DAY FOR IBS WITH CONSTIPATION LASHONDA ([facility]) Trazodone Hydrochloride 100 MG Oral Tablet LASHONDA ([facility]) trazodone LASHONDA ([facility]) pantoprazole 40 MG Delayed Release Oral Tablet LASHONDA ([facility]) Mirtazapine 7.5 MG Oral Tablet LASHONDA ([facility]) Mirtazapine 30 MG Oral Tablet LASHONDA ([facility]) Mirtazapine 15 MG Oral Tablet LASHONDA ([facility]) Lisinopril 10 MG Oral Tablet LASHONDA ([facility]) citalopram LASHONDA ([facility]) buspirone LASHONDA ([facility]) Trazodone Hydrochloride 100 MG Oral Tablet LASHONDA ([facility]) Mirtazapine 7.5 MG Oral Tablet LASHONDA ([facility]) Mirtazapine 30 MG Oral Tablet LASHONDA ([facility]) Mirtazapine 15 MG Oral Tablet LASHONDA ([facility]) Trulance 3 mg tablet TAKE ONE TABLET BY MOUTH EVERY DAY FOR IBS WITH CONSTIPATION LASHONDA ([facility]) Trazodone Hydrochloride 100 MG Oral Tablet LASHONDA ([facility]) trazodone LASHONDA ([facility]) pantoprazole 40 MG Delayed Release Oral Tablet LASHONDA ([facility]) Mirtazapine 7.5 MG Oral Tablet LASHONDA ([facility]) Mirtazapine 30 MG Oral Tablet LASHONDA ([facility]) Mirtazapine 15 MG Oral Tablet LASHONDA ([facility]) Lisinopril 10 MG Oral Tablet LASHONDA ([facility]) citalopram LASHONDA ([facility]) buspirone LASHONDA ([facility]) Trazodone Hydrochloride 100 MG Oral Tablet LASHONDA ([facility]) Mirtazapine 7.5 MG Oral Tablet LASHONDA ([facility]) Mirtazapine 30 MG Oral Tablet LASHONDA ([facility]) Mirtazapine 15 MG Oral Tablet LASHONDA ([facility]) Trazodone Hydrochloride 100 MG Oral Tablet LASHONDA ([facility]) Mirtazapine 7.5 MG Oral Tablet LASHONDA ([facility]) Mirtazapine 30 MG Oral Tablet LASHONDA ([facility]) Mirtazapine 15 MG Oral Tablet LASHONDA ([facility]) Trazodone Hydrochloride 100 MG Oral Tablet LASHONDA ([facility]) Mirtazapine 7.5 MG Oral Tablet LASHONDA ([facility]) Mirtazapine 30 MG Oral Tablet LASHONDA ([facility]) Mirtazapine 15 MG Oral Tablet LASHONDA ([facility]) Trulance 3 mg tablet TAKE ONE TABLET BY MOUTH EVERY DAY FOR IBS WITH CONSTIPATION LASHONDA ([facility]) Trazodone Hydrochloride 100 MG Oral Tablet LASHONDA ([facility]) trazodone LASHONDA ([facility]) Sucralfate 1000 MG Oral Tablet LASHONDA ([facility]) Phenazopyridine hydrochloride 100 MG Oral Tablet LASHONDA ([facility]) pantoprazole 40 MG Delayed Release Oral Tablet LASHONDA ([facility]) 24 HR Nicotine 0.875 MG/HR Transdermal Patch LASHONDA ([facility]) Naproxen 500 MG Oral Tablet LASHONDA ([facility]) Mirtazapine 7.5 MG Oral Tablet LASHONDA ([facility]) Mirtazapine 30 MG Oral Tablet LASHONDA ([facility]) Mirtazapine 15 MG Oral Tablet LASHONDA ([facility]) Metronidazole 500 MG Oral Tablet LASHONDA ([facility]) Lisinopril 10 MG Oral Tablet LASHONDA ([facility]) fluticasone 113 mcg-salmeterol 14 mcg/ac tuation breath activated powdr INHALE ONE PUFF BY MOUTH EVERY 12 HOURS LASHONDA ([facility]) citalopram LASHONDA ([facility]) buspirone hydrochloride 30 MG Oral Tablet LASHONDA ([facility]) buspirone LASHONDA ([facility]) Aspirin 81 MG Oral Tablet AT WALLY ([facility]) Trazodone Hydrochloride 100 MG Oral Tablet LASHONDA ([facility]) Mirtazapine 7.5 MG Oral Tablet LASHONDA ([facility]) Mirtazapine 30 MG Oral Tablet LASHONDA ([facility]) Mirtazapine 15 MG Oral Tablet LASHONDA ([facility]) Trazodone Hydrochloride 100 MG Oral Tablet LASHONDA ([facility])
--- OUTSIDE RECORDS SUMMARY | 2021-05-03 19:45 | CCD ---
Author Author [facility] Organization [facility] Address Unknown Phone Unavailable Care Team Providers Care Machine Operator Picker Name Role Phone Tasia Douglas MD Unavailable [...] Noragong, Majo Unavailable Unavailable Gianni, A Kimi SAWMILL TALLY CLERK Unavailable Unavailable Pinesdale, A Kimi SAWMILL TALLY CLERK Unavailable Unavailable [place], A Kimi SAWMILL TALLY CLERK Unavailable Unavailable [place], A Kimi SAWMILL TALLY CLERK Unavailable Unavailable [place], A Kimi SAWMILL TALLY CLERK Unavailable Unavailable [place], A Kimi SAWMILL TALLY CLERK Unavailable Unavailable [place], A Kimi SAWMILL TALLY CLERK Unavailable Unavailable [place], A Kimi SAWMILL TALLY CLERK Unavailable Unavailable [place], A Kimi SAWMILL TALLY CLERK Unavailable Unavailable [place], A Kimi SAWMILL TALLY CLERK Unavailable Unavailable [place], A Kimi SAWMILL TALLY CLERK Unavailable Unavailable [place], A Kimi SAWMILL TALLY CLERK Unavailable Unavailable [place], A Kimi SAWMILL TALLY CLERK Unavailable Unavailable [place], A Kimi SAWMILL TALLY CLERK Unavailable Unavailable [place], A Kimi SAWMILL TALLY CLERK Unavailable Unavailable [place], A Kimi SAWMILL TALLY CLERK Unavailable Unavailable [place], A Kimi SAWMILL TALLY CLERK Unavailable Unavailable [place], A Kimi SAWMILL TALLY CLERK Unavailable Unavailable [place], A Kimi SAWMILL TALLY CLERK Unavailable Unavailable [place], A Kimi SAWMILL TALLY CLERK Unavailable Unavailable [place], A Kimi SAWMILL TALLY CLERK Unavailable Unavailable [place], A Kimi SAWMILL TALLY CLERK Unavailable Unavailable [place], A Kimi SAWMILL TALLY CLERK Unavailable Unavailable [place], A Kimi SAWMILL TALLY CLERK Unavailable Unavailable [place], A Kimi SAWMILL TALLY CLERK Unavailable Unavailable [place], A Kimi SAWMILL TALLY CLERK Unavailable Unavailable [place], A Kimi SAWMILL TALLY CLERK Unavailable Unavailable [place], A Kimi SAWMILL TALLY CLERK Unavailable Unavailable [place], A Kimi SAWMILL TALLY CLERK Unavailable Unavailable [place], A Kimi SAWMILL TALLY CLERK Unavailable Unavailable [place], A Kimi SAWMILL TALLY CLERK Unavailable Unavailable Yobany, Ana Unavailable Unavailable KIRSTEN, BASIM JIMBO SAWMILL TALLY CLERK-C Unavailable Unavailable KIRSTEN, BASIM JIMBO SAWMILL TALLY CLERK-C Unavailable Unavailable KIRSTEN, BASIM JIMBO SAWMILL TALLY CLERK-C Unavailable Unavailable KIRSTEN, BASIM JIMBO SAWMILL TALLY CLERK-C Unavailable Unavailable KIRSTEN, BASIM JIMBO SAWMILL TALLY CLERK-C Unavailable Unavailable KIRSTEN, BASIM JIMBO SAWMILL TALLY CLERK-C Unavailable Unavailable KIRSTEN, BASIM JIMBO SAWMILL TALLY CLERK-C Unavailable Unavailable KIRSTEN, BASIM JIMBO SAWMILL TALLY CLERK-C Unavailable Unavailable KIRSTEN, BASIM JIMBO SAWMILL TALLY CLERK-C Unavailable Unavailable KIRSTEN, BASIM JIMBO SAWMILL TALLY CLERK-C Unavailable Unavailable KIRSTEN, BASIM JIMBO SAWMILL TALLY CLERK-C Unavailable Unavailable KIRSTEN, BASIM JIMBO SAWMILL TALLY CLERK-C Unavailable Unavailable KIRSTEN, BASIM JIMBO SAWMILL TALLY CLERK-C Unavailable Unavailable KIRSTEN, BASIM JIMBO SAWMILL TALLY CLERK-C Unavailable Unavailable KIRSTEN, BASIM JIMBO SAWMILL TALLY CLERK-C Unavailable Unavailable KIRSTEN, BASIM JIMBO SAWMILL TALLY CLERK-C Unavailable Unavailable KIRSTEN, BASIM JIMBO SAWMILL TALLY CLERK-C Unavailable Unavailable Jumalon, M Brianna SAWMILL TALLY CLERK Unavailable Unavailable Jumalon, M Brianna SAWMILL TALLY CLERK Unavailable Unavailable Jumalon, M Brianna SAWMILL TALLY CLERK Unavailable Unavailable Jumalon, M Brianna SAWMILL TALLY CLERK Unavailable Unavailable Jumalon, M Brianna SAWMILL TALLY CLERK Unavailable Unavailable Jumalon, M Brianna SAWMILL TALLY CLERK Unavailable Unavailable Jumalon, M Brianna SAWMILL TALLY CLERK Unavailable Unavailable Jumalon, M Brianna SAWMILL TALLY CLERK Unavailable Unavailable Jumalon, M Brianna SAWMILL TALLY CLERK Unavailable Unavailable Jumalon, M Brianna SAWMILL TALLY CLERK Unavailable Unavailable Jumalon, M Brianna SAWMILL TALLY CLERK Unavailable Unavailable Jumalon, M Brianna SAWMILL TALLY CLERK Unavailable Unavailable Jumalon, M Brianna SAWMILL TALLY CLERK Unavailable Unavailable Jumalon, M Brianna SAWMILL TALLY CLERK Unavailable Unavailable Jumalon, M Brianna SAWMILL TALLY CLERK Unavailable Unavailable Jumalon, M Brianna SAWMILL TALLY CLERK Unavailable Unavailable Jumalon, M Brianna SAWMILL TALLY CLERK Unavailable Unavailable Jumalon, M Brianna SAWMILL TALLY CLERK Unavailable Unavailable Jumalon, M Brianna SAWMILL TALLY CLERK Unavailable Unavailable Jumalon, M Brianna SAWMILL TALLY CLERK Unavailable Unavailable Jumalon, M Brianna SAWMILL TALLY CLERK Unavailable Unavailable Jumalon, M Brianna SAWMILL TALLY CLERK Unavailable Unavailable Jumalon, M Brianna SAWMILL TALLY CLERK Unavailable Unavailable Jumalon, M Brianna SAWMILL TALLY CLERK Unavailable Unavailable Jumalon, M Brianna SAWMILL TALLY CLERK Unavailable Unavailable Jumalon, M Brianna SAWMILL TALLY CLERK Unavailable Unavailable Jumalon, M Brianna SAWMILL TALLY CLERK Unavailable Unavailable Jumalon, M Brianna SAWMILL TALLY CLERK Unavailable Unavailable Jumalon, M Brianna SAWMILL TALLY CLERK Unavailable Unavailable Jumalon, M Brianna SAWMILL TALLY CLERK Unavailable Unavailable HAJA, H VARUN REFINERY OPERATOR COKING Unavailable Unavailable HAJA, H VARUN REFINERY OPERATOR COKING Unavailable Unavailable HAJA, H VARUN REFINERY OPERATOR COKING Unavailable Unavailable HAJA, H VARUN REFINERY OPERATOR COKING Unavailable Unavailable HAJA, H VARUN REFINERY OPERATOR COKING Unavailable Unavailable HAJA, H VARUN REFINERY OPERATOR COKING Unavailable Unavailable HAJA, H VARUN REFINERY OPERATOR COKING Unavailable Unavailable HAJA, H VARUN REFINERY OPERATOR COKING Unavailable Unavailable HAJA, H VARUN REFINERY OPERATOR COKING Unavailable Unavailable Re-disclosure Warning The records that [...] is protected by Article 27-F of the [facility] Public Health law. If you continue you may have access to information: Regarding HIV / AIDS; Provided by facilities licensed or operated by the [facility] Office of Mental Health; or Provided by the [facility] Office for People With Developmental Disabilities. If such information is present, then the following [facility] mandated warning applies: This information has been [...] law may result in a fine or penitentiary sentence or both. A general authorization for the release of medical or other information is NOT sufficient authorization for further disc losure. Allergies and Adverse Reactions Type Description Substance Reaction Status Data Source(s ) Propensity to adverse reactions to substance nkda 24 HR Bupropion Hydrochloride 150 MG Extended Release Oral Tablet Active Accu medic ([facility]) Family History Family Member Name Family Member Gender Family Member Status Date o f Status Description Data Source(s) Unknown Unknown Problem MEDENT ([facility], ) Encounters Encounter Providers Location Date Indications Data Source(s ) Brianna Rangel, REFINERY OPERATOR COKING: [id number] [facility] [address], [place] [address], Ph. Attender: Brianna GUTIERREZ NM - [facility] - Main Office 03/30/2021 12:00:00 AM EDT ATHE NA ([facility]) Unknown [address] [facility] [address] 03/29/2021 12:00:00 AM EDT eCW1 ([facility]) Outpatient Attender: VARUN SPEAR NP [facility] 03/28/2021 01:30:00 AM EDT - 03/28/2021 01:30:00 AM EDT Accumedic ([facility]) Attender: VARUN SPEAR NP 03/28/2021 12:00:00 AM EDT Accumedic ([facility]) Attender: Ana Haywood 03/24/2021 12:00:00 AM EDT Accumedic ([facility]) Extended Individual Psychotherapy - 45 min Attender: Ana Haywood [facility] 03/23/2021 03:15:00 AM EDT - 03/23/2021 03:15:00 AM EDT Accumedic ([facility]) Antonino Douglas MD: [address] [facility] [address], [place] [address], Ph. Attender: Antonino MOSHER - [facility] - [facility] Office 03/15/2021 12:00:00 AM EDT LASHONDA ([facility]) Antonino Douglas MD: [address], [place] [address], Ph. Attender: Antonino MOSHER - [facility] - Main Office 03/15/2021 12:00:00 AM EDT LASHONDA ([facility]) Outpatient Attender: JIMBO GUTIERREZ-Randolph Diaz/Jeffery/Rogerio/Jess leslie 03/10/2021 12:45:00 PM EDT MEDENT ([facility]) Majo Delgado, SAWMILL TALLY CLERK: [address] [place] [address], Ph. Attender: Majo Delgado [facility] Medical 03/09/2021 12:00:00 AM EDT LASHONDA ([facility]) Unknown [address] [facility] [address] 03/08/2021 12:00:00 AM EDT eCW1 ([facility]) Unknown [address] [facility] [address] 03/08/2021 12:00:00 AM EDT eCW1 ([facility]) Extended Individual Psychotherapy - 45 min Attender: Ana Haywood [facility] 03/07/2021 02:00:00 AM EDT - 03/07/2021 02:00:00 AM EDT Accumedic ([facility]) Outpatient [address] [facility] [address] 03/07/2021 12:00:00 AM EDT eCW1 ([facility]) Attender: Ana Haywood 03/07/2021 12:00:00 AM EDT Accumedic ([facility]) BRIDGETTE RaeP: [address] [place] [phone], Ph. Attender: Majo Delgado [facility] Medical 03/04/2021 12:00:00 AM EDT LASHONDA ([facility]) Majo Delgado, SAWMILL TALLY CLERK: [address] [place] [address], Ph. Attender: Majo Delgado [facility] Medical 03/04/2021 12:00:00 AM EDT LASHONDA ([facility]) Brianna Rangel, REFINERY OPERATOR COKING: [address], [place] [address], Ph. Attender: Brianna Rangel [facility] 03/01/2021 12:00:00 AM EDT COLT WREN ([facility]) Brianna Rangel, REFINERY OPERATOR COKING: [address], [address], [place] [address], Ph. Attender: Brianna Rangel [facility] 03/01/2021 12:00:00 AM EDT COLT WREN ([facility]) Kimi Archer [facility]: [address], [place] [address], Ph. Attender: Kimi Archer [facility] Medical 03/01/2021 12:00:00 AM EDT LASHONDA ([facility]) Kimi Archer [facility]: [address], [place] [address], Ph. Attender: Kimi Archer [facility] Medical 03/01/2021 12:00:00 AM EDT LASHONDA ([facility]) Brianna Rangel, REFINERY OPERATOR COKING: [address], [place] [address], Ph. Attender: Brianna Rangel [facility] 03/01/2021 12:00:00 AM EDT COLT WREN ([facility]) Outpatient Attender: VARUN SPEAR NP [facility] 02/16/2021 10:00:00 AM EDT - 02/16/2021 10:00:00 AM EDT Accummarta ([facility]) Attender: VARUN SPEAR NP 02/16/2021 12:00:00 AM EDT Accumedic ([facility]) Antonino Douglas MD: [address], [address], [place] [address], Ph. Attender: Antonino Douglas MD [place] - [facility] 02/10/2021 12:00:00 AM EDT LASHONDA ([facility]) Antonino Douglas MD: [address], [address], [place] [address], Ph. Attender: Antonino MOSHER - [facility] 02/10/2021 12:00:00 AM EDT LASHONDA ([facility]) Antonino Douglas MD: [address], [address], [place] [address], Ph. Attender: Antonino MOSHER - [facility] 02/10/2021 12:00:00 AM EDT LASHONDA ([facility]) Antonino Douglas MD: [address], [address], [place] [address], Ph. Attender: Antonino MOSHER - [facility] 02/10/2021 12:00:00 AM EDT LASHONDA ([facility]) Antonino Douglas MD: [address], [address], [place] [address], Ph. [phone] Attender: Antonino MOSHER - [facility] 02/07/2021 12:00:00 AM EDT LASHONDA ([facility]) Antonino Douglas MD: [address], [address], [place] [address], Ph. [phone] Attender: Antonino MOSHER - [facility] 02/07/2021 12:00:00 AM EDT LASHONDA ([facility]) Antonino Douglas MD: [address], [address], [place] [address], Ph. [phone] Attender: Antonino Douglas MD [place] - [facility] 02/07/2021 12:00:00 AM EDT LASHONDA ([facility]) Antonino Douglas MD: [address], [address], [place] [address], Ph. [phone] Attender: Antonino Douglas MD [place] - [facility] 02/07/2021 12:00:00 AM EDT LASHONDA ([facility]) Antonino Douglas MD: [address], [address], [place] [address], Ph. [phone] Attender: Antonino Douglas MD [place] - [facility] 02/07/2021 12:00:00 AM EDT LASHONDA ([facility]) Extended Individual Psychotherapy - 45 min Attender: Ana Haywood [facility] 02/04/2021 02:00:00 AM EDT - 02/04/2021 02:00:00 AM EDT Accumedic ([facility] Attender: Ana Haywood 02/04/2021 12:00:00 AM EDT Accumedic ([facility]) Antonino Douglas MD: [address], [address], [place] [address], Ph. [phone] Attender: Antonino Douglas MD [place] - [facility] 02/02/2021 12:00:00 AM EDT LASHONDA ([facility]) Antonino Douglas MD: [address], [address], [place] [address], Ph. [phone] Attender: Antonino MOSHER - [facility] 02/02/2021 12:00:00 AM EDT LASHONDA ([facility]) Antonino Douglas MD: [address], [place] [address], Ph. [phone] Attender: Antonino Douglas MD [place] - [facility] 02/02/2021 12:00:00 AM EDT LASHONDA ([facility]) Antonino Douglas MD: [address], [address], [place] [address], Ph. [phone] Attender: Antonino MOSHER - [facility] 02/02/2021 12:00:00 AM EDT LASHONDA ([facility]) Antonino Douglas MD: [address], [address], [place] [address], Ph. [phone] Attender: Antonino Douglas MD [place] - [facility] 02/02/2021 12:00:00 AM EDT LASHONDA ([facility]) Antonino Douglas MD: [address], [address], [place] [address], Ph. [phone] Attender: Antonino Douglas MD [place] - [facility] 02/02/2021 12:00:00 AM EDT LASHONDA ([facility]) DEANDRE Rao: [address], [place] [address], Ph. Attender: Kimi GUTIERREZ [facility] Medical 02/01/2021 12:00:00 AM EDT LASHONDA ([facility]) DEANDRE Rao: [address], [place] [address], Ph. [facility]: [facility] 02/01/2021 12:00:00 AM EDT LASHONDA ([facility]) BRIDGETTE RaoP-: [address], [place] [address], Ph. Attender: Kimi GUTIERREZ NM - [facility] Medical 02/01/2021 12:00:00 AM EDT LASHONDA ([facility]) Antonino Douglas MD: [address], [address], [place] [address], Ph. [phone] Attender: Antonino Douglas MD NM - [facility] 01/21/2021 12:00:00 AM EDT LASHONDA ([facility]) Antonino Douglas MD: [address], [address], [place] [address], Ph. [phone] Attender: Antonino Douglas MD [place] - [facility] 01/21/2021 12:00:00 AM EDT LASHONDA ([facility]) Antonino Douglas MD: [address], [address], [place] [address], Ph. [phone] Attender: Antonino Douglas MD [place] - [facility] 01/21/2021 12:00:00 AM EDT LASHONDA ([facility]) Antonino Douglas MD: [address], [address], [place] [address], Ph. [phone] Attender: Antonino Douglas MD [place] - [facility] 01/21/2021 12:00:00 AM EDT LASHONDA ([facility]) Antonino Douglas MD: [address], [address], [place] [address], Ph. [phone] Attender: Antonino Douglas MD NM - [facility] 01/21/2021 12:00:00 AM EDT LASHONDA ([facility]) Antonino Douglas MD: [address], [address], [place] [address], Ph. [phone] Attender: Antonino Douglas MD [place] - [facility] 01/21/2021 12:00:00 AM EDT LASHONDA ([facility]) Antonino Douglas MD: [address], [address], [place] [address], Ph. [phone] Attender: Antonino Douglas MD [place] - [facility] 01/21/2021 12:00:00 AM EDT LASHONDA ([facility]) Outpatient Attender: JIMBO CURTIS SAWMILL TALLY CLERK-Randolph Diaz/Jeffery/Rogerio/Jess leslie 01/20/2021 01:45:00 PM EDT MEDWILLIAM ([facility] Brianna Rangel, REFINERY OPERATOR COKING: [address], [place] [address], Ph. Attender: Brianna Rangel [facility] - [facility] 01/17/2021 12:00:00 AM EDT ATHE NA ([facility]) Brianna Rangel, REFINERY OPERATOR COKING: [address], [place] [address], Ph. Attender: Brianna Rangel [facility] - [facility] 01/17/2021 12:00:00 AM EDT ATHE NA ([facility]) Brianna Rangel, REFINERY OPERATOR COKING: [address], [place] [address], Ph. Attender: Brianna Rangel [facility] - [facility] 01/17/2021 12:00:00 AM EDT ATHE NA ([facility]) Brianna Rangel, REFINERY OPERATOR COKING: [address], [place] [address], Ph. Attender: Brianna Rangel [facility] - [facility] 01/17/2021 12:00:00 AM EDT ATHE NA ([facility]) Brianna Rangel, REFINERY OPERATOR COKING: [address], [place] [address], Ph. Attender: Brianna Rangel [facility] - [facility] 01/17/2021 12:00:00 AM EDT ATHE NA ([facility]) Brianna Rangel, REFINERY OPERATOR COKING: [address], [place] [address], Ph. Attender: Brianna Rangel [facility] 01/17/2021 12:00:00 AM EDT ATHE NA ([facility]) Brianna Rangel, REFINERY OPERATOR COKING: [address], [place] [address], Ph. Attender: Brianna Rangel [facility] 01/17/2021 12:00:00 AM EDT ATHE NA ([facility]) Brianna Rangel, REFINERY OPERATOR COKING: [address], [place] [address], Ph. Attender: Brianna Rangel [facility] 01/17/2021 12:00:00 AM EDT ATHE NA ([facility]) Attender: Ana Haywood 01/06/2021 12:00:00 AM EDT [facility]) Extended Individual Psychotherapy - 45 min Attender: Ana Haywood [facility] 01/05/2021 03:00:00 AM EDT - 01/05/2021 03:00:00 AM EDT Accumedic ([facility]) Antonino Douglas MD: [address], [address], [place] [address], Ph. Attender: Antonino MOSHER - [facility] 12/20/2020 12:00:00 AM EDT LASHONDA ([facility]) Antonino Douglas MD: [address], [address], [place] [address], Ph. Attender: Antonino MOSHER - [facility] 12/20/2020 12:00:00 AM EDT LASHONDA ([facility]) Anotnino Douglas MD: [address], [place] [address], Ph. Attender: Antonino MOSHER - [facility] 12/20/2020 12:00:00 AM EDT LASHONDA ([facility]) Antonino Douglas MD: [address], [place] [address], Ph. Attender: Antonino MOSHER - [facility] 12/20/2020 12:00:00 AM EDT LASHONDA ([facility]) Antonino Douglas MD: [address], [address], [place] [address], Ph. Attender: Antonino MOSHER - [facility] 12/20/2020 12:00:00 AM EDT LASHONDA ([facility]) Antonino Douglas MD: [address], [address], [place] [address], Ph. Attender: Antonino MOSHER - [facility] 12/20/2020 12:00:00 AM EDT LASHONDA ([facility]) Antonino Douglas MD: [address], [place], [place] [address], Ph. Attender: Antonino MOSHER - [facility] 12/20/2020 12:00:00 AM EDT LASHONDA ([facility]) Antonino Douglas MD: [address], [place] [address], Ph. Attender: Antonino Douglas MD [place] - [facility] 12/20/2020 12:00:00 AM EDT LASHONDA ([facility]) Antonino Douglas MD: [address], [place] [address], Ph. Attender: Antonino Douglas MD [place] - [facility] 12/20/2020 12:00:00 AM EDT LASHONDA ([facility]) Outpatient Attender: VARUN SPEAR NP [facility] Tristin skaggs 12/09/2020 02:00:00 AM EDT - 12/09/2020 02:00:00 AM EDT Accumedic ([facility]) Attender: VARUN SPEAR NP 12/09/2020 12:00:00 AM EDT Accumedic ([facility]) Extended Individual Psychotherapy - 45 min Attender: Ana Haywood [facility] Janell 12/08/2020 03:00:00 AM EDT - 12/08/2020 03:00:00 AM EDT Accumedic ([facility]) Attender: Ana Haywood 12/08/2020 12:00:00 AM EDT Accumedic ([facility]) Outpatient Attender: JIMBO Diaz/Jeffery/Rogerio/Jess leslie 12/07/2020 01:15:00 PM EDT MEDENT ([facility]) Extended Individual Psychotherapy - 45 min Attender: Ana Haywood [facility] 11/16/2020 11:00:00 AM EDT - 11/16/2020 11:00:00 AM EDT [facility] ([facility]) Attender: Ana Haywood 11/16/2020 12:00:00 AM EDT [facility] ([facility]) Unknown [address] [facility] [address] 11/15/2020 12:00:00 AM EDT eCW1 ([facility]) Unknown [address] [facility] [address] 11/11/2020 12:00:00 AM EDT eCW1 ([facility]) Outpatient [address] [facility] [address] 11/10/2020 12:00:00 AM EDT eCW1 ([facility]) Outpatient Attender: VARUN SPEAR NP [facility] 10/28/2020 11:30:00 AM EDT - 10/28/2020 11:30:00 AM EDT [facility] ([facility]) Attender: VARUN SPEAR NP 10/28/2020 12:00:00 AM EDT [facility] ([facility]) MATT Rao-BC: [address] [place] [address], Ph. Attender: Kimi GUTIERREZ [facility] Medical 10/19/2020 12:00:00 AM EDT LASHONDA ([facility]) MATT Rao-BC: [address] [place] [address], Ph. Attender: Kimi GUTIERREZ [facility] Medical 10/19/2020 12:00:00 AM EDT LASHONDA ([facility]) Kimi Archer [facility]: [address], [place] [address], Ph. Attender: Kimi Archer [facility] Medical 10/19/2020 12:00:00 AM EDT LASHONDA ([facility]) Kimi Archer [facility]: [address], [place] [address], Ph. Attender: Kimi Archer [facility] Medical 10/19/2020 12:00:00 AM EDT [place] ([facility]) Kimi Archer [facility]: [address], [place] [address], Ph. Attender: Kimi Archer [facility] Medical 10/19/2020 12:00:00 AM EDT LASHONDA ([facility]) Outpatient Attender: VARUN SPEAR NP [facility] 10/14/2020 02:00:00 AM EDT - 10/14/2020 02:00:00 AM EDT [facility] ([facility]) Attender: VARUN SPEAR NP 10/14/2020 12:00:00 AM EDT [facility] ([facility]) Antonino Douglas MD: [id number], [place] [address], Ph. Attender: Antonino MOSHER - [facility] Office 09/20/2020 12:00:00 AM EDT LASHONDA ([facility]) Antonino Douglas MD: [id number], [place] [address], Ph. Attender: Antonino MOSHER - [facility] Office 09/20/2020 12:00:00 AM EDT LASHONDA ([facility]) Antonino Douglas MD: [id number], [address], [place] [address], Ph. Attender: Antonino Douglas MD [place] - [facility] 09/20/2020 12:00:00 AM EDT LASHONDA ([facility]) Antonino Douglas MD: [id number], [address], [place] [address], Ph. Attender: Antonino Douglas MD [place] - [facility] 09/20/2020 12:00:00 AM EDT LASHONDA ([facility]) Antonino Douglas MD: [address], [address], [place] [address], Ph. Attender: Antonino MOSHER - [facility] 09/20/2020 12:00:00 AM EDT LASHONDA ([facility]) Antonino Douglas MD: [address], [place] [address], Ph. Attender: Antonino MOSHER - [facility] 09/20/2020 12:00:00 AM EDT LASHONDA ([facility]) Antonino Douglas MD: [address], [address], [place] [address], Ph. Attender: Antonino MOSHER - [facility] 09/20/2020 12:00:00 AM EDT LASHONDA ([facility]) Antonino Douglas MD: [address], [address], [place] [address], Ph. Attender: Antonino MOSHER - [facility] 09/20/2020 12:00:00 AM EDT LASHONDA ([facility]) Antonino Douglas MD: [id number] [facility] [address], [place] [address], Ph. Attender: Antonino Douglas MD NM - [facility] - Main Office 09/20/2020 12:00:00 AM EDT LASHONDA ([facility]) Antonino Douglas MD: [id number] [facility] [address], [place] [address], Ph. Attender: Antonino Douglas MD NM - [facility] - Main Office 09/20/2020 12:00:00 AM EDT LASHONDA ([facility]) Attender: Ana Haywood 09/07/2020 12:00:00 AM EDT [facility] ([facility]) Extended Individual Psychotherapy - 45 min Attender: Ana Haywood [facility] 09/06/2020 03:00:00 AM EDT - 09/06/2020 03:00:00 AM EDT [facility] ([facility]) Outpatient Attender: VARUN SPEAR NP [facility] Tristin sharifa 09/01/2020 02:00:00 AM EDT - 09/01/2020 02:00:00 AM EDT [facility] ([facility]) Attender: VARUN SPEAR NP 09/01/2020 12:00:00 AM EDT [facility] ([facility]) [id number]"Psychotherapy Attender: Ana Haywood [facility] 08/17/2020 01:00:00 AM EDT - 08/17/2020 01:00:00 AM EDT [facility] ([facility]) Attender: Ana Haywood 08/17/2020 12:00:00 AM EDT [facility] ([facility]) Kimi Archer, SAWMILL TALLY CLERK-BC: [address] [place] [address], Ph. Attender: Kimi Archer [facility] Medical 08/04/2020 12:00:00 AM EST LASHONDA ([facility]) Kimi Archer [facility]: [address], [place] [address], Ph. Attender: Kimi Archer [facility] Medical 08/04/2020 12:00:00 AM EST LASHONDA ([facility]) Kimi Archer [facility]: [address], [place] [address], Ph. Attender: Kimi Archer [facility] Medical 08/04/2020 12:00:00 AM EST LASHONDA ([facility]) [facility]: [address], [place] [address], Ph. Attender: Kimi Archer [facility] Medical 08/04/2020 12:00:00 AM EST LASHONDA ([facility]) Kimi Archer [facility]: [address], [place] [address], Ph. Attender: Kimi Archer [facility] Medical 08/04/2020 12:00:00 AM EST LASHONDA ([facility]) Kimi Archer [facility]: [address], [place] [address], Ph. Attender: Kimi Archer [facility] Medical 08/04/2020 12:00:00 AM EST LASHONDA ([facility]) [id number]"Psychotherapy Attender: Ana Haywood [facility] 08/02/2020 01:00:00 AM EST - 08/02/2020 01:00:00 AM EST [facility] ([facility]) Attender: Ana Haywood 08/02/2020 12:00:00 AM EST [facility] ([facility]) Extended Individual Psychotherapy - 45 min Attender: Ana Haywood [facility] 07/14/2020 11:45:00 AM EST - 07/14/2020 11:45:00 AM EST [facility] ([facility]) Attender: Ana Haywood 07/14/2020 12:00:00 AM EST [facility] ([facility]) Extended Individual Psychotherapy - 45 min Attender: Ana Yobany [facility] 06/28/2020 01:00:00 AM EST - 06/28/2020 01:00:00 AM EST [facility] ([facility]) Attender: Ana Haywood 06/28/2020 12:00:00 AM EST [facility] ([facility]) Attender: VARUN SPEAR NP 06/28/2020 12:00:00 AM EST [facility] ([facility]) Extended Individual Psychotherapy - 45 min Attender: Ana Yobany [facility] 06/09/2020 01:00:00 AM EST - 06/09/2020 01:00:00 AM EST [facility] ([facility]) Attender: Ana Haywood 06/09/2020 12:00:00 AM EST [facility] ([facility]) Outpatient Attender: VARUN SPEAR NP [facility] Tristin sharifa 05/24/2020 03:00:00 AM EST - 05/24/2020 03:00:00 AM EST [facility] ([facility]) Extended Individual Psychotherapy - 45 min Attender: Ana Haywood [facility] 05/17/2020 01:00:00 AM EST - 05/17/2020 01:00:00 AM EST [facility] ([facility]) Attender: Ana Haywood 05/17/2020 12:00:00 AM EST [facility] ([facility]) Extended Individual Psychotherapy - 45 min Attender: Ana Haywood [facility] 04/30/2020 02:00:00 AM EST - 04/30/2020 02:00:00 AM EST [facility] ([facility]) Attender: Ana Haywood 04/30/2020 12:00:00 AM EST [facility] ([facility]) Outpatient Attender: VARUN SPEAR NP [facility] Tristin skaggs 04/07/2020 05:00:00 AM EST - 04/07/2020 05:00:00 AM EST [facility] ([facility]) Attender: VARUN SPEAR NP 04/07/2020 12:00:00 AM EST [facility] ([facility]) Attender: Ana Yobany [facility] 01:00:00 AM EST - 03/29/2020 01:00:00 AM EST [facility] ([facility]) Attender: Ana Haywood 03/29/2020 12:00:00 AM EST [facility] ([facility]) DEANDRE RaoBC: [address], [place] [address], Ph. Attender: Kimi Archer [facility] Medical 03/22/2020 12:00:00 AM EDT [place] ([facility]) DEANDRE RaoBC: [address], [place] [address], Ph. Attender: Kimi Archer [facility] Medical 03/22/2020 12:00:00 AM EDT LASHONDA ([facility]) DEANA Rao: [address], [place] [address], Ph. Attender: Kimi Archer [facility] Medical 03/22/2020 12:00:00 AM EDT LASHONDA [facility]) DEANDRE RaoBC: [address], [place] [address], Ph. Attender: Kimi Archer [facility] Medical 03/22/2020 12:00:00 AM EDT [place] ([facility]) Kimi Archer [facility]: [address], [place] [address], Ph. Attender: Kimi Archer [facility] Medical 03/22/2020 12:00:00 AM EDT LASHONDA ([facility]) Kimi Archer [facility]: [address], [place] [address], Ph. Attender: Kimi Archer [facility] Medical 03/22/2020 12:00:00 AM EDT [place] ([facility]) Kimi Archer [facility]: [address], [place] [address], Ph. Attender: Kimi Archer [facility] Medical 03/22/2020 12:00:00 AM EDT [place] ([facility]) Kimi Archer [facility]: [address], [place] [address], Ph. Attender: Kimi Archer [facility] Medical 03/22/2020 12:00:00 AM EDT [place] ([facility]) Kimi Archer [facility]: [address], [place] [address], Ph. Attender: Kimi Archer [facility] Medical 03/18/2020 12:00:00 AM EDT [place] ([facility]) Kimi Archer [facility]: [address], [place] [address], Ph. Attender: Kimi Archer [facility] Medical 03/18/2020 12:00:00 AM EDT [place] ([facility]) Kimi Archer [facility]: [address], [place] [address], Ph. Attender: Kimi Archer [facility] Medical 03/18/2020 12:00:00 AM EDT [place] ([facility]) Kimi Archer [facility]: [address], [place] [address], Ph. Attender: Kimi Archer [facility] Medical 03/18/2020 12:00:00 AM EDT [place] ([facility]) Kimi Archer [facility]: [address], [place] [address], Ph. Attender: Kimi Acrher [facility] Medical 03/18/2020 12:00:00 AM EDT [place] ([facility]) Kimi Archer [facility]: [address], [place] [address], Ph. Attender: Kimi Archer [facility] Medical 03/18/2020 12:00:00 AM EDT [place] ([facility]) Kimi Archer [facility]: [address], [place] [address], Ph. Attender: Kimi Archer [facility] Medical 03/18/2020 12:00:00 AM EDT [place] ([facility]) Kimi Archer [facility]: [address], [place] [address], Ph. Attender: Kmii GUTIERREZ [facility] Medical 03/18/2020 12:00:00 AM EDT LASHONDA ([facility]) Extended Individual Psychotherapy - 45 min Attender: Ana Caseus [facility] 03/15/2020 01:00:00 AM EDT - 03/15/2020 01:00:00 AM EDT [facility] ([facility]) Attender: Ana Caseus 03/15/2020 12:00:00 AM EDT [facility] ([facility]) Outpatient Attender: VARUN SPEAR NP [facility] Tristin sharifa 03/08/2020 02:00:00 AM EDT - 03/08/2020 02:00:00 AM EDT [facility] ([facility]) Attender: VARUN SPEAR NP 03/08/2020 12:00:00 AM EDT [facility] ([facility]) Functional Status Immunizations Vaccine Date Status Description Data Source(s) New in 2011. IIV4 03/04/2021 11:23:00 AM EDT completed 03/04/20 21 [facility]DA ([facility]) New in 2011. IIV4 03/04/2021 11:23:00 AM EDT completed 03/04/20 21 [place] ([facility]) COVID-19 VACCINE Pfizer 12/01/2020 12:00:00 AM EDT completed [place] Vaccine Series Complete: YESThis Data wa s Submitted to [facility] Via [employer]. COVID-19 VACCINE Pfizer 11/08/2020 12:00:00 AM EDT completed [place] Vaccine Series Complete: NOThis Data was Submitted to [facility] [employer]. New in 2011. IIV4 03/25/2020 03:18:00 PM EDT completed 0.5 mL [facility]DA ([facility]) New in 2011. IIV4 03/25/2020 03:18:00 PM EDT completed 0.5 mL [facility]DA ([facility]) New in 2011. IIV4 03/25/2020 03:18:00 PM EDT completed .5 mL LASHONDA ([facility]) New in 2011. IIV4 03/25/2020 03:18:00 PM EDT completed .5 mL [facility]DA ([facility]) New in 2011. IIV4 03/25/2020 03:18:00 PM EDT completed 0.5 mL [facility]DA ([facility]) New in 2011. IIV4 03/25/2020 03:18:00 PM EDT completed .5 mL [facility]DA ([facility]) New in 2011. IIV4 03/25/2020 03:18:00 PM EDT completed .5 mL [facility]DA ([facility]) New in 2011. IIV4 03/22/2020 02:30:00 PM EDT completed .5 mL [facility]DA ([facility]) New in 2011. IIV4 03/22/2020 02:30:00 PM EDT completed .5 mL [facility]DA ([facility]) New in 2011. IIV4 03/22/2020 02:30:00 PM EDT completed .5 mL [facility]DA ([facility]) New in 2011. IIV4 03/22/2020 02:30:00 PM EDT completed .5 mL [facility]DA ([facility]) New in 2011. IIV4 03/22/2020 02:30:00 PM EDT completed .5 mL LASHONDA ([facility]) New in 2011. IIV4 03/22/2020 02:30:00 PM EDT completed .5 mL LASHONDA ([facility]) New in 2011. IIV4 03/22/2020 02:30:00 PM EDT completed .5 mL [facility]DA ([facility]) New in 2011. IIV4 03/22/2020 02:30:00 PM EDT completed .5 mL [facility]DA ([facility]) Medications Medication Brand Name Start Date Product Form Dose Route Admi nistrative Instructions Pharmacy Instructions Status Indications Reaction Description Data Source(s) [employer]iclick [employer] 11314 03/10/2021 12:00: 00 AM EDT RESPIRATORY active MEDENT ([facility], ) Fluconazole 150 MG Oral Tablet [Diflucan] Diflucan 150 MG Di flucan 150 MG 03/08/2021 12:00:00 AM EDT 1.0 {tablet} active Diflucan 150 MG eCW1 ([facility]) Fluconazole 150 MG Oral Tablet [Diflucan] Diflucan 150 MG Di flucan 150 MG 03/08/2021 12:00:00 AM EDT 1.0 {tablet} active Diflucan 150 MG eCW1 ([facility]) Fluconazole 150 MG Oral Tablet [Diflucan] Diflucan 150 MG Di flucan 150 MG 03/08/2021 12:00:00 AM EDT 1.0 {tablet} active Diflucan 150 MG eCW1 ([facility]) Fluconazole 150 MG Oral Tablet [Diflucan] Diflucan 150 MG Di flucan 150 MG 03/08/2021 12:00:00 AM EDT 1.0 {tablet} active Diflucan 150 MG eCW1 ([facility]) buspirone hydrochloride 10 MG Oral Tablet buspirone 2020 12:00:00 AM EDT 10 mg by mouth completed <td ID="Medic ationRxNorm_4">577231</td><td ID="MedicationMedication_4">buspirone</td><td ID="MedicationRoute_4">by mouth</td><td ID="MedicationRouteConcept_4">S40625</td><td ID="MedicationStartDate_4">02/16/2021</td><td ID="MedicationStopDate_4">05/17/2021</td><td ID="MedicationDosageFrequency_4">twice a day</td><td ID="MedicationDuration_4">30</td><td ID="MedicationFormulaStrength_4">10 mg</td><td ID="MedicationDosageForm_4">tablet</td><td ID="MedicationDosageFormCode_4"></td><td ID="MedicationDosageDescription_4"></td><td ID="MedicationMedicationId_4">[id number]</td><td ID="MedicationAccount_4">[id number]</td><td ID="MedicationNpid_4">[id number]</td><td ID="MedicationAuthorFirstName_4">Varun</td><td ID="MedicationAuthorLastName_4">Haja</td><td ID="MedicationTaxonomyCode_4">[id number]</td><td ID="MedicationTaxonomyDesc_4">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</td><td ID="MedicationPhoneNumber_4">[phone]</td> [facility] ([facility]) Metronidazole 500 MG Oral Tablet [Flagyl] Flagyl 500 MG Flag yl 500 MG 11/15/2020 12:00:00 AM EDT 1.0 {tablet} active F lagyl 500 MG eCW1 ([facility]) buspirone hydrochloride 10 MG Oral Tablet buspirone 2020 12:00:00 AM EDT 10 mg by mouth completed <td ID="Medic ationRxNorm_1">[id number]</td><td ID="MedicationMedication_1">buspirone</td><td ID="MedicationRoute_1">by mouth</td><td ID="MedicationRouteConcept_1">R46776</td><td ID="MedicationStartDate_1">11/15/2020</td><td ID="MedicationStopDate_1">02/07/2021</td><td ID="MedicationDosageFrequency_1">twice a day</td><td ID="MedicationDuration_1">30</td><td ID="MedicationFormulaStrength_1">10 mg</td><td ID="MedicationDosageForm_1">tablet</td><td ID="MedicationDosageFormCode_1"></td><td ID="MedicationDosageDescription_1"></td><td ID="MedicationMedicationId_1">[id number]</td><td ID="MedicationAccount_1">[id number]</td><td ID="MedicationNpid_1">[id number]</td><td ID="MedicationAuthorFirstName_1">Varun</td><td ID="MedicationAuthorLastName_1">Haja</td><td ID="MedicationTaxonomyCode_1">[id number]</td><td ID="MedicationTaxonomyDesc_1">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</td><td ID="MedicationPhoneNumber_1">[phone]</td> [facility] ([facility]) Metronidazole 500 MG Oral Tablet [Flagyl] Flagyl 500 MG Flag yl 500 MG 11/15/2020 12:00:00 AM EDT 1.0 {tablet} active F lagyl 500 MG eCW1 ([facility]) Metronidazole 500 MG Oral Tablet [Flagyl] Flagyl 500 MG Flag yl 500 MG 11/15/2020 12:00:00 AM EDT 1.0 {tablet} active F lagyl 500 MG eCW1 ([facility]) Metronidazole 500 MG Oral Tablet [Flagyl] Flagyl 500 MG Flag yl 500 MG 11/15/2020 12:00:00 AM EDT 1.0 {tablet} active F lagyl 500 MG eCW1 ([facility]) Metronidazole 500 MG Oral Tablet [Flagyl] Flagyl 500 MG Flag yl 500 MG 11/15/2020 12:00:00 AM EDT 1.0 {tablet} active F lagyl 500 MG eCW1 ([facility]) Metronidazole 500 MG Oral Tablet [Flagyl] Flagyl 500 MG Flag yl 500 MG 11/15/2020 12:00:00 AM EDT 1.0 {tablet} active F lagyl 500 MG eCW1 ([facility]) Metronidazole 500 MG Oral Tablet [Flagyl] Flagyl 500 MG Flag yl 500 MG 11/15/2020 12:00:00 AM EDT 1.0 {tablet} active F lagyl 500 MG eCW1 ([facility]) Phenazopyridine hydrochloride 100 MG Oral Tablet [Pyri dium] Pyridium 100 MG Pyridium 100 MG 11/10/2020 12:00:00 AM EDT 1.0 {tablets_after_meals} active Pyridium 100 MG eCW1 ([facility]) Phenazopyridine hydrochloride 100 MG Oral Tablet [Pyri dium] Pyridium 100 MG Pyridium 100 MG 11/10/2020 12:00:00 AM EDT 1.0 {tablets_after_meals} active Pyridium 100 MG eCW1 ([facility]) Estrogens, Conjugated (FPC) 0.625 MG/ML Vaginal Cream [Premarin] Premarin 0.625 MG/GM Premarin 0.625 MG/GM 11/10/2020 12:00:00 AM EDT active Premarin 0.625 MG/GM eCW1 ([facility]) Estrogens, Conjugated (FPC) 0.625 MG/ML Vaginal Cream [Premarin] Premarin 0.625 MG/GM Premarin 0.625 MG/GM 11/10/2020 12:00:00 AM EDT active Premarin 0.625 MG/GM eCW1 ([facility]) Estrogens, Conjugated (FPC) 0.625 MG/ML Vaginal Cream [Premarin] Premarin 0.625 MG/GM Premarin 0.625 MG/GM 11/10/2020 12:00:00 AM EDT active Premarin 0.625 MG/GM eCW1 ([facility]) Estrogens, Conjugated (FPC) 0.625 MG/ML Vaginal Cream [Premarin] Premarin 0.625 MG/GM Premarin 0.625 MG/GM 11/10/2020 12:00:00 AM EDT active Premarin 0.625 MG/GM eCW1 ([facility]) Estrogens, Conjugated (FPC) 0.625 MG/ML Vaginal Cream [Premarin] Premarin 0.625 MG/GM Premarin 0.625 MG/GM 11/10/2020 12:00:00 AM EDT active Premarin 0.625 MG/GM eCW1 ([facility]) Phenazopyridine hydrochloride 100 MG Oral Tablet [Pyri dium] Pyridium 100 MG Pyridium 100 MG 11/10/2020 12:00:00 AM EDT 1.0 {tablets_after_meals} active Pyridium 100 MG eCW1 ([facility]) Phenazopyridine hydrochloride 100 MG Oral Tablet [Pyri dium] Pyridium 100 MG Pyridium 100 MG 11/10/2020 12:00:00 AM EDT 1.0 {tablets_after_meals} active Pyridium 100 MG eCW1 ([facility]) Phenazopyridine hydrochloride 100 MG Oral Tablet [Pyri dium] Pyridium 100 MG Pyridium 100 MG 11/10/2020 12:00:00 AM EDT 1.0 {tablets_after_meals} active Pyridium 100 MG eCW1 ([facility]) Phenazopyridine hydrochloride 100 MG Oral Tablet [Pyri dium] Pyridium 100 MG Pyridium 100 MG 11/10/2020 12:00:00 AM EDT 1.0 {tablets_after_meals} active Pyridium 100 MG eCW1 ([facility]) Phenazopyridine hydrochloride 100 MG Oral Tablet [Pyri dium] Pyridium 100 MG Pyridium 100 MG 11/10/2020 12:00:00 AM EDT 1.0 {tablets_after_meals} active Pyridium 100 MG eCW1 ([facility]) Estrogens, Conjugated (FPC) 0.625 MG/ML Vaginal Cream [Premarin] Premarin 0.625 MG/GM Premarin 0.625 MG/GM 11/10/2020 12:00:00 AM EDT active Premarin 0.625 MG/GM eCW1 ([facility]) Estrogens, Conjugated (FPC) 0.625 MG/ML Vaginal Cream [Premarin] Premarin 0.625 MG/GM Premarin 0.625 MG/GM 11/10/2020 12:00:00 AM EDT active Premarin 0.625 MG/GM eCW1 ([facility]) Trazodone Hydrochloride 150 MG Oral Tablet trazodone 10/14 12:00:00 AM EDT 150 mg by mouth completed <td ID="Medic ationRxNorm_4">[id number]</td><td ID="MedicationMedication_4">trazodone</td><td ID="MedicationRoute_4">by mouth</td><td ID="MedicationRouteConcept_4">S77224</td><td ID="MedicationStartDate_4">10/14/2020</td><td ID="MedicationStopDate_4">03/09/2021</td><td ID="MedicationDosageFrequency_4">at bedtime</td><td ID="MedicationDuration_4">90</td><td ID="MedicationFormulaStrength_4">150 mg</td><td ID="MedicationDosageForm_4">tablet</td><td ID="MedicationDosageFormCode_4"></td><td ID="MedicationDosageDescription_4"></td><td ID="MedicationMedicationId_4">[id number]</td><td ID="MedicationAccount_4">[id number]</td><td ID="MedicationNpid_4">[id number]</td><td ID="MedicationAuthorFirstName_4">Varun</td><td ID="MedicationAuthorLastName_4">Haja</td><td ID="MedicationTaxonomyCode_4">[id number]</td><td ID="MedicationTaxonomyDesc_4">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</td><td ID="MedicationPhoneNumber_4">[phone]</td> [facility] ([facility]) Trazodone Hydrochloride 150 MG Oral Tablet trazodone 10/14 12:00:00 AM EDT 150 mg by mouth completed <td ID="Medic ationRxNorm_3">972580</td><td ID="MedicationMedication_3">trazodone</td><td ID="MedicationRoute_3">by mouth</td><td ID="MedicationRouteConcept_3">A89738</td><td ID="MedicationStartDate_3">10/14/2020</td><td ID="MedicationStopDate_3">05/17/2021</td><td ID="MedicationDosageFrequency_3">at bedtime</td><td ID="MedicationDuration_3">30</td><td ID="MedicationFormulaStrength_3">150 mg</td><td ID="MedicationDosageForm_3">tablet</td><td ID="MedicationDosageFormCode_3"></td><td ID="MedicationDosageDescription_3"></td><td ID="MedicationMedicationId_3">[id number]</td><td ID="MedicationAccount_3">[id number]</td><td ID="MedicationNpid_3">[id number]</td><td ID="MedicationAuthorFirstName_3">Varun</td><td ID="MedicationAuthorLastName_3">Haja</td><td ID="MedicationTaxonomyCode_3">[id number]</td><td ID="MedicationTaxonomyDesc_3">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</td><td ID="MedicationPhoneNumber_3">[phone]</td> [facility] ([facility]) buspirone hydrochloride 10 MG Oral Tablet buspirone 2020 12:00:00 AM EST 10 mg by mouth completed <td ID="Medic ationRxNorm_3">922692</td><td ID="MedicationMedication_3">buspirone</td><td ID="MedicationRoute_3">by mouth</td><td ID="MedicationRouteConcept_3">C91202</td><td ID="MedicationStartDate_3">06/02/2020</td><td ID="MedicationStopDate_3">08/29/2020</td><td ID="MedicationDosageFrequency_3">twice a day</td><td ID="MedicationDuration_3">30</td><td ID="MedicationFormulaStrength_3">10 mg</td><td ID="MedicationDosageForm_3">tablet</td><td ID="MedicationDosageFormCode_3"></td><td ID="MedicationDosageDescription_3"></td><td ID="MedicationMedicationId_3">[id number]</td><td ID="MedicationAccount_3">[id number]</td><td ID="MedicationNpid_3">[id number]</td><td ID="MedicationAuthorFirstName_3">Varun</td><td ID="MedicationAuthorLastName_3">Haja</td><td ID="MedicationTaxonomyCode_3">[id number]</td><td ID="MedicationTaxonomyDesc_3">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</td><td ID="MedicationPhoneNumber_3">[phone]</td> [facility] ([facility]) Trazodone Hydrochloride 150 MG Oral Tablet trazodone 05/13 12:00:00 AM EST 150 mg completed <td ID="Medica tionRxNorm_2">136666</td><td ID="MedicationMedication_2">trazodone</td><td ID="MedicationRoute_2"></td><td ID="MedicationRouteConcept_2"></td><td ID="MedicationStartDate_2">05/13/2020</td><td ID="MedicationStopDate_2"></td><td ID="MedicationDosageFrequency_2"></td><td ID="MedicationDuration_2"></td><td ID="MedicationFormulaStrength_2">150 mg</td><td ID="MedicationDosageForm_2">tablet</td><td ID="MedicationDosageFormCode_2"></td><td ID="MedicationDosageDescription_2"></td><td ID="MedicationMedicationId_2">[id number]</td><td ID="MedicationAccount_2">[id number]</td><td ID="MedicationNpid_2">[id number]</td><td ID="MedicationAuthorFirstName_2">Varun</td><td ID="MedicationAuthorLastName_2">Haja</td><td ID="MedicationTaxonomyCode_2">[id number]</td><td ID="MedicationTaxonomyDesc_2">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</td><td ID="MedicationPhoneNumber_2">[phone]</td> [facility] ([facility]) Trazodone Hydrochloride 150 MG Oral Tablet trazodone 05/13 12:00:00 AM EST 150 mg completed <td ID="Medica tionRxNorm_3">305267</td><td ID="MedicationMedication_3">trazodone</td><td ID="MedicationRoute_3"></td><td ID="MedicationRouteConcept_3"></td><td ID="MedicationStartDate_3">05/13/2020</td><td ID="MedicationStopDate_3"></td><td ID="MedicationDosageFrequency_3"></td><td ID="MedicationDuration_3"></td><td ID="MedicationFormulaStrength_3">150 mg</td><td ID="MedicationDosageForm_3">tablet</td><td ID="MedicationDosageFormCode_3"></td><td ID="MedicationDosageDescription_3"></td><td ID="MedicationMedicationId_3">[id number]</td><td ID="MedicationAccount_3">[id number]</td><td ID="MedicationNpid_3">[id number]</td><td ID="MedicationAuthorFirstName_3">Varun</td><td ID="MedicationAuthorLastName_3">Haja</td><td ID="MedicationTaxonomyCode_3">[id number]</td><td ID="MedicationTaxonomyDesc_3">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</td><td ID="MedicationPhoneNumber_3">[phone]</td> [facility] Trazodone Hydrochloride 150 MG Oral Tablet trazodone 05/13 12:00:00 AM EST 150 mg completed <td ID="Medica tionRxNorm_4">405748</td><td ID="MedicationMedication_4">trazodone</td><td ID="MedicationRoute_4"></td><td ID="MedicationRouteConcept_4"></td><td ID="MedicationStartDate_4">05/13/2020</td><td ID="MedicationStopDate_4"></td><td ID="MedicationDosageFrequency_4"></td><td ID="MedicationDuration_4"></td><td ID="MedicationFormulaStrength_4">150 mg</td><td ID="MedicationDosageForm_4">tablet</td><td ID="MedicationDosageFormCode_4"></td><td ID="MedicationDosageDescription_4"></td><td ID="MedicationMedicationId_4">[id number]</td><td ID="MedicationAccount_4">[id number]</td><td ID="MedicationNpid_4">[id number]</td><td ID="MedicationAuthorFirstName_4">Varun</td><td ID="MedicationAuthorLastName_4">Haja</td><td ID="MedicationTaxonomyCode_4">[id number]</td><td ID="MedicationTaxonomyDesc_4">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</td><td ID="MedicationPhoneNumber_4">[phone]</td> [facility] ([facility]) quetiapine 50 MG Oral Tablet quetiapine 04/28/2020 12:00:00 AM EST 50 mg by mouth completed <td ID="Medica tionRxNorm_2">028321</td><td ID="MedicationMedication_2">quetiapine</td><td ID="MedicationRoute_2">by mouth</td><td ID="MedicationRouteConcept_2">F51525</td><td ID="MedicationStartDate_2">04/28/2020</td><td ID="MedicationStopDate_2">05/17/2021</td><td ID="MedicationDosageFrequency_2">at bedtime</td><td ID="MedicationDuration_2">30</td><td ID="MedicationFormulaStrength_2">50 mg</td><td ID="MedicationDosageForm_2">tablet</td><td ID="MedicationDosageFormCode_2"></td><td ID="MedicationDosageDescription_2"></td><td ID="MedicationMedicationId_2">[id number]</td><td ID="MedicationAccount_2">[id number]</td><td ID="MedicationNpid_2">[id number]</td><td ID="MedicationAuthorFirstName_2">Varun</td><td ID="MedicationAuthorLastName_2">Haja</td><td ID="MedicationTaxonomyCode_2">[id number]</td><td ID="MedicationTaxonomyDesc_2">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</td><td ID="MedicationPhoneNumber_2">[phone]</td> [facility] ([facility]) quetiapine 50 MG Oral Tablet quetiapine 04/28/2020 12:00:00 AM EST 50 mg by mouth completed <td ID="Medica tionRxNorm_1">116854</td><td ID="MedicationMedication_1">quetiapine</td><td ID="MedicationRoute_1">by mouth</td><td ID="MedicationRouteConcept_1">C18424</td><td ID="MedicationStartDate_1">04/28/2020</td><td ID="MedicationStopDate_1">10/31/2020</td><td ID="MedicationDosageFrequency_1">at bedtime</td><td ID="MedicationDuration_1">30</td><td ID="MedicationFormulaStrength_1">50 mg</td><td ID="MedicationDosageForm_1">tablet</td><td ID="MedicationDosageFormCode_1"></td><td ID="MedicationDosageDescription_1"></td><td ID="MedicationMedicationId_1">[id number]</td><td ID="MedicationAccount_1">[id number]</td><td ID="MedicationNpid_1">[id number]</td><td ID="MedicationAuthorFirstName_1">Varun</td><td ID="MedicationAuthorLastName_1">Haja</td><td ID="MedicationTaxonomyCode_1">[id number]</td><td ID="MedicationTaxonomyDesc_1">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</td><td ID="MedicationPhoneNumber_1">[phone]</td> [facility] ([facility]) quetiapine 50 MG Oral Tablet quetiapine 04/28/2020 12:00:00 AM EST 50 mg by mouth completed <td ID="Medica tionRxNorm_4">947550</td><td ID="MedicationMedication_4">quetiapine</td><td ID="MedicationRoute_4">by mouth</td><td ID="MedicationRouteConcept_4">V49432</td><td ID="MedicationStartDate_4">04/28/2020</td><td ID="MedicationStopDate_4">09/26/2020</td><td ID="MedicationDosageFrequency_4">at bedtime</td><td ID="MedicationDuration_4">30</td><td ID="MedicationFormulaStrength_4">50 mg</td><td ID="MedicationDosageForm_4">tablet</td><td ID="MedicationDosageFormCode_4"></td><td ID="MedicationDosageDescription_4"></td><td ID="MedicationMedicationId_4">59173</td><td ID="MedicationAccount_4">[id number]</td><td ID="MedicationNpid_4">[id number]</td><td ID="MedicationAuthorFirstName_4">Varun</td><td ID="MedicationAuthorLastName_4">Haja</td><td ID="MedicationTaxonomyCode_4">[id number]</td><td ID="MedicationTaxonomyDesc_4">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</td><td ID="MedicationPhoneNumber_4">[phone]</td> [facility] ([facility]) quetiapine 50 MG Oral Tablet quetiapine 04/28/2020 12:00:00 AM EST 50 mg by mouth completed <td ID="Medica tionRxNorm_3">727775</td><td ID="MedicationMedication_3">quetiapine</td><td ID="MedicationRoute_3">by mouth</td><td ID="MedicationRouteConcept_3">F32589</td><td ID="MedicationStartDate_3">04/28/2020</td><td ID="MedicationStopDate_3">03/09/2021</td><td ID="MedicationDosageFrequency_3">at bedtime</td><td ID="MedicationDuration_3">90</td><td ID="MedicationFormulaStrength_3">50 mg</td><td ID="MedicationDosageForm_3">tablet</td><td ID="MedicationDosageFormCode_3"></td><td ID="MedicationDosageDescription_3"></td><td ID="MedicationMedicationId_3">40148</td><td ID="MedicationAccount_3">[id number]</td><td ID="MedicationNpid_3">[id number]</td><td ID="MedicationAuthorFirstName_3">Varun</td><td ID="MedicationAuthorLastName_3">Haja</td><td ID="MedicationTaxonomyCode_3">[id number]</td><td ID="MedicationTaxonomyDesc_3">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</td><td ID="MedicationPhoneNumber_3">[phone]</td> [facility] ([facility]) Trazodone Hydrochloride 100 MG Oral Tablet trazodone 04/07 12:00:00 AM EST 100 mg by mouth completed <td ID="Medic ationRxNorm_2">707628</td><td ID="MedicationMedication_2">trazodone</td><td ID="MedicationRoute_2">by mouth</td><td ID="MedicationRouteConcept_2">K30715</td><td ID="MedicationStartDate_2">04/07/2020</td><td ID="MedicationStopDate_2">05/07/2020</td><td ID="MedicationDosageFrequency_2">at bedtime</td><td ID="MedicationDuration_2">30</td><td ID="MedicationFormulaStrength_2">100 mg</td><td ID="MedicationDosageForm_2">tablet</td><td ID="MedicationDosageFormCode_2"></td><td ID="MedicationDosageDescription_2"></td><td ID="MedicationMedicationId_2">00069</td><td ID="MedicationAccount_2">[id number]</td><td ID="MedicationNpid_2">[id number]</td><td ID="MedicationAuthorFirstName_2">Varun</td><td ID="MedicationAuthorLastName_2">Haja</td><td ID="MedicationTaxonomyCode_2">[id number]</td><td ID="MedicationTaxonomyDesc_2">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</td><td ID="MedicationPhoneNumber_2">[phone]</td> [facility] ([facility]) Mirtazapine 15 MG Oral Tablet mirtazapine 12/17/2019 12:00:00 AM EDT 15 mg by mouth completed <td ID="Medica tionRxNorm_4">534862</td><td ID="MedicationMedication_4">mirtazapine</td><td ID="MedicationRoute_4">by mouth</td><td ID="MedicationRouteConcept_4">N21045</td><td ID="MedicationStartDate_4">12/17/2019</td><td ID="MedicationStopDate_4">07/06/2020</td><td ID="MedicationDosageFrequency_4">at bedtime</td><td ID="MedicationDuration_4">30</td><td ID="MedicationFormulaStrength_4">15 mg</td><td ID="MedicationDosageForm_4">tablet</td><td ID="MedicationDosageFormCode_4"></td><td ID="MedicationDosageDescription_4"></td><td ID="MedicationMedicationId_4">25177</td><td ID="MedicationAccount_4">[id number]</td><td ID="MedicationNpid_4">[id number]</td><td ID="MedicationAuthorFirstName_4">Varun</td><td ID="MedicationAuthorLastName_4">Haja</td><td ID="MedicationTaxonomyCode_4">[id number]</td><td ID="MedicationTaxonomyDesc_4">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</td><td ID="MedicationPhoneNumber_4">[phone]</td> [facility] ([facility]) Mirtazapine 15 MG Oral Tablet mirtazapine 12/17/2019 12:00:00 AM EDT 15 mg by mouth completed <td ID="Medica tionRxNorm_5">396574</td><td ID="MedicationMedication_5">mirtazapine</td><td ID="MedicationRoute_5">by mouth</td><td ID="MedicationRouteConcept_5">U99730</td><td ID="MedicationStartDate_5">12/17/2019</td><td ID="MedicationStopDate_5">04/27/2020</td><td ID="MedicationDosageFrequency_5">at bedtime</td><td ID="MedicationDuration_5">30</td><td ID="MedicationFormulaStrength_5">15 mg</td><td ID="MedicationDosageForm_5">tablet</td><td ID="MedicationDosageFormCode_5"></td><td ID="MedicationDosageDescription_5"></td><td ID="MedicationMedicationId_5">25037</td><td ID="MedicationAccount_5">[id number]</td><td ID="MedicationNpid_5">[id number]</td><td ID="MedicationAuthorFirstName_5">Varun</td><td ID="MedicationAuthorLastName_5">Haja</td><td ID="MedicationTaxonomyCode_5">[id number]</td><td ID="MedicationTaxonomyDesc_5">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</td><td ID="MedicationPhoneNumber_5">[phone]</td> [facility] ([facility]) Mirtazapine 15 MG Oral Tablet mirtazapine 12/17/2019 12:00:00 AM EDT 15 mg by mouth completed <td ID="Medica tionRxNorm_3">898534</td><td ID="MedicationMedication_3">mirtazapine</td><td ID="MedicationRoute_3">by mouth</td><td ID="MedicationRouteConcept_3">B86002</td><td ID="MedicationStartDate_3">12/17/2019</td><td ID="MedicationStopDate_3">06/06/2020</td><td ID="MedicationDosageFrequency_3">at bedtime</td><td ID="MedicationDuration_3">30</td><td ID="MedicationFormulaStrength_3">15 mg</td><td ID="MedicationDosageForm_3">tablet</td><td ID="MedicationDosageFormCode_3"></td><td ID="MedicationDosageDescription_3"></td><td ID="MedicationMedicationId_3">[id number]</td><td ID="MedicationAccount_3">[id number]</td><td ID="MedicationNpid_3">[id number]</td><td ID="MedicationAuthorFirstName_3">Varun</td><td ID="MedicationAuthorLastName_3">Haja</td><td ID="MedicationTaxonomyCode_3">[id number]</td><td ID="MedicationTaxonomyDesc_3">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</td><td ID="MedicationPhoneNumber_3">[phone]</td> [facility] ([facility]) buspirone hydrochloride 10 MG Oral Tablet buspirone 2019 12:00:00 AM EDT 10 mg by mouth completed <td ID="Medic ationRxNorm_2">827460</td><td ID="MedicationMedication_2">buspirone</td><td ID="MedicationRoute_2">by mouth</td><td ID="MedicationRouteConcept_2">L81923</td><td ID="MedicationStartDate_2">11/05/2019</td><td ID="MedicationStopDate_2">06/06/2020</td><td ID="MedicationDosageFrequency_2">twice a day</td><td ID="MedicationDuration_2">30</td><td ID="MedicationFormulaStrength_2">10 mg</td><td ID="MedicationDosageForm_2">tablet</td><td ID="MedicationDosageFormCode_2"></td><td ID="MedicationDosageDescription_2"></td><td ID="MedicationMedicationId_2">02450</td><td ID="MedicationAccount_2">[id number]</td><td ID="MedicationNpid_2">[id number]</td><td ID="MedicationAuthorFirstName_2">Varun</td><td ID="MedicationAuthorLastName_2">Haja</td><td ID="MedicationTaxonomyCode_2">[id number]</td><td ID="MedicationTaxonomyDesc_2">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</td><td ID="MedicationPhoneNumber_2">[phone]</td> [facility] ([facility]) Escitalopram 20 MG Oral Tablet [Lexapro] Lexapro 03/07/2018 12 :00:00 AM EDT 20 mg by mouth completed <td ID="Me dicationRxNorm_2">987477</td><td ID="MedicationMedication_2">Lexapro</td><td ID="MedicationRoute_2">by mouth</td><td ID="MedicationRouteConcept_2">S58020</td><td ID="MedicationStartDate_2">03/07/2018</td><td ID="MedicationStopDate_2">03/09/2021</td><td ID="MedicationDosageFrequency_2">once a day</td><td ID="MedicationDuration_2">90</td><td ID="MedicationFormulaStrength_2">20 mg</td><td ID="MedicationDosageForm_2">tablet</td><td ID="MedicationDosageFormCode_2"></td><td ID="MedicationDosageDescription_2"></td><td ID="MedicationMedicationId_2">57513</td><td ID="MedicationAccount_2">[id number]</td><td ID="MedicationNpid_2">[id number]</td><td ID="MedicationAuthorFirstName_2">Varun</td><td ID="MedicationAuthorLastName_2">Haja</td><td ID="MedicationTaxonomyCode_2">[id number]</td><td ID="MedicationTaxonomyDesc_2">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</td><td ID="MedicationPhoneNumber_2">[phone]</td> [facility] ([facility]) Aspirin 81 MG Oral Tablet aspirin 81 mg tablet Take by oral route. aspirin 81 mg tablet Take by oral route. completed aspirin 81 MG Oral Tablet LASHONDA ([facility]) Mirtazapine 30 MG Oral Tablet mirtazapin e 30 mg tablet TAKE ONE TABLET BY MOUTH AT BEDTIME mirtazapine 30 mg tablet TAKE ONE TABLET BY MOUTH AT BEDTIME completed mirtazapine 30 MG Oral Ta blet ALSHONDA ([facility]) Metronidazole 500 MG Oral Tablet metroni dazole 500 mg tablet TAKE ONE TABLET BY MOUTH THREE TIMES A DAY metronidazole 500 mg tablet TAKE ONE TAB LET BY MOUTH THREE TIMES A DAY completed metr onidazole 500 MG Oral Tablet LASHONDA ([facility]) Mirtazapine 15 MG Oral Tablet mirtazapin e 15 mg tablet TAKE ONE TABLET BY MOUTH AT BEDTIME mirtazapine 15 mg tablet TAKE ONE TABLET BY MOUTH AT BEDTIME completed mirtazapine 15 MG Oral Ta blet LASHONDA ([facility]) Aspirin 81 MG Oral Tablet aspirin 81 mg tablet Take by oral route. aspirin 81 mg tablet Take by oral route. completed aspirin 81 MG Oral Tablet [place]OS[place] ([facility]) Mirtazapine 15 MG Oral Tablet mirtazapin e 15 mg tablet TAKE ONE TABLET BY MOUTH AT BEDTIME mirtazapine 15 mg tablet TAKE ONE TABLET BY MOUTH AT BEDTIME completed mirtazapine 15 MG Oral Ta blet LASHONDA ([facility]) Trulance 3 mg tablet TAKE ONE TABLET BY MOUTH EVERY DAY FOR IBS WITH CONSTIPATION [id number] completed pl ecanatide 3 MG Oral Tablet [Trulance] [facility]ASHONDA ([facility]) Metronidazole 500 MG Oral Tablet metroni dazole 500 mg tablet TAKE ONE TABLET BY MOUTH THREE TIMES A DAY metronidazole 500 mg tablet TAKE ONE TAB LET BY MOUTH THREE TIMES A DAY completed metr onidazole 500 MG Oral Tablet LASHONDA ([facility]) Naproxen 500 MG Oral Tablet naproxen 500 mg tablet TAKE ONE TABLET BY MOUTH TWICE A DAY NEEDED naproxen 500 mg tablet TAKE ONE TABLET B Y MOUTH TWICE A DAY NEEDED completed naproxen 500 MG Oral Tablet LASHONDA ([facility]) Mirtazapine 15 MG Oral Tablet mirtazapin e 15 mg tablet TAKE ONE TABLET BY MOUTH AT BEDTIME mirtazapine 15 mg tablet TAKE ONE TABLET BY MOUTH AT BEDTIME completed mirtazapine 15 MG Oral Ta blet LASHONDA ([facility]) pantoprazole 40 MG Delayed Release Oral Tablet pantoprazole 40 mg tablet,delayed release TAKE ONE TABLET BY MOUTH DAILY pantoprazole 40 mg tablet,delayed release TAKE ONE TABLET BY MOUTH DAILY completed pantoprazole 40 MG Delayed Release Oral Tablet LASHONDA ([facility]) buspirone completed Buspar ATH ANGELO ([facility]) Mirtazapine 30 MG Oral Tablet mirtazapin e 30 mg tablet TAKE ONE TABLET BY MOUTH AT BEDTIME mirtazapine 30 mg tablet TAKE ONE TABLET BY MOUTH AT BEDTIME completed mirtazapine 30 MG Oral Ta blet LASHONDA ([facility]) Mirtazapine 7.5 MG Oral Tablet mirtazapi ne 7.5 mg tablet TAKE ONE TABLET BY MOUTH AT BEDTIME mirtazapine 7.5 mg tablet TAKE ONE TABLET BY MOUTH AT BEDTIME completed mirtazapine 7. 5 MG Oral Tablet LASHONDA ([facility]) Trazodone Hydrochloride 100 MG Oral Tabl et trazodone 100 mg tablet TAKE TWO TABLETS BY MOUTH AT BEDTIME trazodone 100 mg tablet TAKE TWO TABLETS BY MOUTH AT BEDTIME completed trazodone hyd rochloride 100 MG Oral Tablet LASHONDA ([facility]) Mirtazapine 15 MG Oral Tablet mirtazapin e 15 mg tablet TAKE ONE TABLET BY MOUTH AT BEDTIME mirtazapine 15 mg tablet TAKE ONE TABLET BY MOUTH AT BEDTIME completed mirtazapine 15 MG Oral Ta blet LASHONDA ([facility]) trazodone completed Fredericro AT [facility] ([facility]) Trazodone Hydrochloride 100 MG Oral Tabl et trazodone 100 mg tablet TAKE TWO TABLETS BY MOUTH AT BEDTIME trazodone 100 mg tablet TAKE TWO TABLETS BY MOUTH AT BEDTIME completed trazodone hyd rochloride 100 MG Oral Tablet [facility]DA ([facility]) Mirtazapine 15 MG Oral Tablet mirtazapin e 15 mg tablet TAKE ONE TABLET BY MOUTH AT BEDTIME mirtazapine 15 mg tablet TAKE ONE TABLET BY MOUTH AT BEDTIME completed mirtazapine 15 MG Oral Ta blet LASHONDA ([facility]) Trazodone Hydrochloride 100 MG Oral Tabl et trazodone 100 mg tablet TAKE TWO TABLETS BY MOUTH AT BEDTIME trazodone 100 mg tablet TAKE TWO TABLETS BY MOUTH AT BEDTIME completed trazodone hyd rochloride 100 MG Oral Tablet [facility]DA ([facility]) Lisinopril 10 MG Oral Tablet lisinopril 10 mg tablet Take 1 tablet every day by oral route. lisinopril 10 mg tablet Take 1 tablet every day by oral route. 1 completed lisinopril 10 MG Oral Tablet LASHONDA ([facility]) 24 HR Nicotine 0.875 MG/HR Transdermal P [facility] nicotine 21 mg/24 hr daily transdermal patch APPLY ONE PATCH TO THE SKIN DAILY nicotine 21 mg/24 hr daily transdermal patch APPLY ONE PATCH TO THE SKIN DAILY completed 24 HR nicotine 0.875 MG/HR Transdermal System LASHONDA ([facility]) Aspirin 81 MG Oral Tablet aspirin 81 mg tablet Take by oral route. aspirin 81 mg tablet Take by oral route. completed aspirin 81 MG Oral Tablet LASHONDA ([facility]) buspirone completed Buspar ATH ANGELO ([facility]) Mirtazapine 7.5 MG Oral Tablet mirtazapi ne 7.5 mg tablet TAKE ONE TABLET BY MOUTH AT BEDTIME mirtazapine 7.5 mg tablet TAKE ONE TABLET BY MOUTH AT BEDTIME completed mirtazapine 7. 5 MG Oral Tablet LASHONDA ([facility]) quetiapine 50 MG Oral Tablet quetiapine 50 mg tablet TAKE ONE TABLET BY MOUTH AT BEDTIME quetiapine 50 mg tablet TAKE ONE TABLET BY MOUTH AT BEDTIME completed quetiapine 50 MG Oral Tablet [place] ([facility]) citalopram completed Celexa AT [facility] ([facility]) Trazodone Hydrochloride 100 MG Oral Tabl et trazodone 100 mg tablet TAKE TWO TABLETS BY MOUTH AT BEDTIME trazodone 100 mg tablet TAKE TWO TABLETS BY MOUTH AT BEDTIME completed trazodone hyd rochloride 100 MG Oral Tablet [facility]ASH[facility]DA ([facility]) Mirtazapine 15 MG Oral Tablet mirtazapin e 15 mg tablet TAKE ONE TABLET BY MOUTH AT BEDTIME mirtazapine 15 mg tablet TAKE ONE TABLET BY MOUTH AT BEDTIME completed mirtazapine 15 MG Oral Ta blet LSAHONDA ([facility]) pantoprazole 40 MG Delayed Release Oral Tablet pantoprazole 40 mg tablet,delayed release TAKE ONE TABLET BY MOUTH DAILY pantoprazole 40 mg tablet,delayed release TAKE ONE TABLET BY MOUTH DAILY completed pantoprazole 40 MG Delayed Release Oral Tablet LASHONDA ([facility]) Mirtazapine 30 MG Oral Tablet mirtazapin e 30 mg tablet TAKE ONE TABLET BY MOUTH AT BEDTIME mirtazapine 30 mg tablet TAKE ONE TABLET BY MOUTH AT BEDTIME completed mirtazapine 30 MG Oral Ta blet LASHONDA ([facility]) Sucralfate 1000 MG Oral Tablet sucralfat e 1 gram tablet TAKE ONE TABLET BY MOUTH FOUR TIMES A DAY ON AN EMPTY STOMACH 1 HOUR BEFORE MEALS AND AT BEDTIME sucralfate 1 gram tablet TAKE ONE TABLET BY MOUTH FOUR TIMES A DAY ON AN EMPTY STOMACH 1 HOUR BEFORE MEALS AND AT BEDTIME completed sucralfate 1000 MG Oral Tablet LASHONDA ([facility]) Lisinopril 10 MG Oral Tablet lisinopril 10 mg tablet Take 1 tablet every day by oral route. lisinopril 10 mg tablet Take 1 tablet every day by oral route. 1 completed lisinopril 10 MG Oral Tablet HOSCHTON ([facility]) Sucralfate 1000 MG Oral Tablet sucralfat e 1 gram tablet TAKE ONE TABLET BY MOUTH FOUR TIMES A DAY ON AN EMPTY STOMACH 1 HOUR BEFORE MEALS AND AT BEDTIME sucralfate 1 gram tablet TAKE ONE TABLET BY MOUTH FOUR TIMES A DAY ON AN EMPTY STOMACH 1 HOUR BEFORE MEALS AND AT BEDTIME completed sucralfate 1000 MG Oral Tablet LASHONDA ([facility]) trazodone completed Jackie LO ([facility]) Mirtazapine 15 MG Oral Tablet mirtazapin e 15 mg tablet TAKE ONE TABLET BY MOUTH AT BEDTIME mirtazapine 15 mg tablet TAKE ONE TABLET BY MOUTH AT BEDTIME completed mirtazapine 15 MG Oral Ta blet LASHONDA ([facility]) Mirtazapine 7.5 MG Oral Tablet mirtazapi ne 7.5 mg tablet TAKE ONE TABLET BY MOUTH AT BEDTIME mirtazapine 7.5 mg tablet TAKE ONE TABLET BY MOUTH AT BEDTIME completed mirtazapine 7. 5 MG Oral Tablet LASHONDA ([facility]) Mirtazapine 30 MG Oral Tablet mirtazapin e 30 mg tablet TAKE ONE TABLET BY MOUTH AT BEDTIME mirtazapine 30 mg tablet TAKE ONE TABLET BY MOUTH AT BEDTIME completed mirtazapine 30 MG Oral Ta blet LASHONDA ([facility]) Mirtazapine 30 MG Oral Tablet mirtazapin e 30 mg tablet TAKE ONE TABLET BY MOUTH AT BEDTIME mirtazapine 30 mg tablet TAKE ONE TABLET BY MOUTH AT BEDTIME completed mirtazapine 30 MG Oral Ta blet LASHONDA ([facility]) Mirtazapine 7.5 MG Oral Tablet mirtazapi ne 7.5 mg tablet TAKE ONE TABLET BY MOUTH AT BEDTIME mirtazapine 7.5 mg tablet TAKE ONE TABLET BY MOUTH AT BEDTIME completed mirtazapine 7. 5 MG Oral Tablet LASHONDA ([facility]) Trazodone Hydrochloride 100 MG Oral Tabl et trazodone 100 mg tablet TAKE TWO TABLETS BY MOUTH AT BEDTIME trazodone 100 mg tablet TAKE TWO TABLETS BY MOUTH AT BEDTIME completed trazodone hyd rochloride 100 MG Oral Tablet LASHONDA ([facility]) Mirtazapine 7.5 MG Oral Tablet mirtazapi ne 7.5 mg tablet TAKE ONE TABLET BY MOUTH AT BEDTIME mirtazapine 7.5 mg tablet TAKE ONE TABLET BY MOUTH AT BEDTIME completed mirtazapine 7. 5 MG Oral Tablet LASHONDA ([facility]) Mirtazapine 15 MG Oral Tablet mirtazapin e 15 mg tablet TAKE ONE TABLET BY MOUTH AT BEDTIME mirtazapine 15 mg tablet TAKE ONE TABLET BY MOUTH AT BEDTIME completed mirtazapine 15 MG Oral Ta blet LASHONDA ([facility]) Mirtazapine 15 MG Oral Tablet mirtazapin e 15 mg tablet TAKE ONE TABLET BY MOUTH AT BEDTIME mirtazapine 15 mg tablet TAKE ONE TABLET BY MOUTH AT BEDTIME completed mirtazapine 15 MG Oral Ta blet LASHONDA ([facility]) Mirtazapine 7.5 MG Oral Tablet mirtazapi ne 7.5 mg tablet TAKE ONE TABLET BY MOUTH AT BEDTIME mirtazapine 7.5 mg tablet TAKE ONE TABLET BY MOUTH AT BEDTIME completed mirtazapine 7. 5 MG Oral Tablet LASHONDA ([facility]) Mirtazapine 15 MG Oral Tablet mirtazapin e 15 mg tablet TAKE ONE TABLET BY MOUTH AT BEDTIME mirtazapine 15 mg tablet TAKE ONE TABLET BY MOUTH AT BEDTIME completed mirtazapine 15 MG Oral Ta blet LASHONDA ([facility]) buspirone completed Buspar ATH ANGELO ([facility]) citalopram completed Celexa AT [facility]) Mirtazapine 30 MG Oral Tablet mirtazapin e 30 mg tablet TAKE ONE TABLET BY MOUTH AT BEDTIME mirtazapine 30 mg tablet TAKE ONE TABLET BY MOUTH AT BEDTIME completed mirtazapine 30 MG Oral Ta blet LASHONDA ([facility]) Trazodone Hydrochloride 100 MG Oral Tabl et trazodone 100 mg tablet TAKE TWO TABLETS BY MOUTH AT BEDTIME trazodone 100 mg tablet TAKE TWO TABLETS BY MOUTH AT BEDTIME completed trazodone hyd rochloride 100 MG Oral Tablet [facility] ([facility]) Mirtazapine 7.5 MG Oral Tablet mirtazapi ne 7.5 mg tablet TAKE ONE TABLET BY MOUTH AT BEDTIME mirtazapine 7.5 mg tablet TAKE ONE TABLET BY MOUTH AT BEDTIME completed mirtazapine 7. 5 MG Oral Tablet H[facility] ([facility]) citalopram completed Celexa AT [facility]) fluticasone 113 mcg-salmeterol 14 mcg/ac tuation breath activated powdr INHALE ONE PUFF BY MOUTH EVERY 12 HOURS [id number] comp leted 60 ACTUAT fluticasone propionate 0.113 MG/ACTUAT / salmeterol 0.014 MG/ACTUAT Dry Powder Inhaler [facility] ([facility]) Mirtazapine 15 MG Oral Tablet mirtazapin e 15 mg tablet TAKE ONE TABLET BY MOUTH AT BEDTIME mirtazapine 15 mg tablet TAKE ONE TABLET BY MOUTH AT BEDTIME completed mirtazapine 15 MG Oral Ta blet LASHONDA ([facility]) trazodone completed Oleptro AT [facility]) Trazodone Hydrochloride 100 MG Oral Tabl et trazodone 100 mg tablet TAKE TWO TABLETS BY MOUTH AT BEDTIME trazodone 100 mg tablet TAKE TWO TABLETS BY MOUTH AT BEDTIME completed trazodone hyd rochloride 100 MG Oral Tablet LASHONDA ([facility]) Mirtazapine 30 MG Oral Tablet mirtazapin e 30 mg tablet TAKE ONE TABLET BY MOUTH AT BEDTIME mirtazapine 30 mg tablet TAKE ONE TABLET BY MOUTH AT BEDTIME completed mirtazapine 30 MG Oral Ta blet LASHONDA ([facility]) Sucralfate 1000 MG Oral Tablet sucralfat e 1 gram tablet TAKE ONE TABLET BY MOUTH FOUR TIMES A DAY ON AN EMPTY STOMACH 1 HOUR BEFORE MEALS AND AT BEDTIME sucralfate 1 gram tablet TAKE ONE TABLET BY MOUTH FOUR TIMES A DAY ON AN EMPTY STOMACH 1 HOUR BEFORE MEALS AND AT BEDTIME completed sucralfate 1000 MG Oral Tablet [facility]ASH[facility]DA ([facility]) buspirone hydrochloride 30 MG Oral Table t buspirone 30 mg tablet TAKE ONE TABLET BY MOUTH TWICE A DAY buspirone 30 mg tablet TAKE ONE TABLET B Y MOUTH TWICE A DAY completed buspirone hydroc hloride 30 MG Oral Tablet LASHONDA ([facility]) Mirtazapine 7.5 MG Oral Tablet mirtazapi ne 7.5 mg tablet TAKE ONE TABLET BY MOUTH AT BEDTIME mirtazapine 7.5 mg tablet TAKE ONE TABLET BY MOUTH AT BEDTIME completed mirtazapine 7. 5 MG Oral Tablet LASHONDA ([facility]) Mirtazapine 7.5 MG Oral Tablet mirtazapi ne 7.5 mg tablet TAKE ONE TABLET BY MOUTH AT BEDTIME mirtazapine 7.5 mg tablet TAKE ONE TABLET BY MOUTH AT BEDTIME completed mirtazapine 7. 5 MG Oral Tablet LASHONDA ([facility]) Mirtazapine 30 MG Oral Tablet mirtazapin e 30 mg tablet TAKE ONE TABLET BY MOUTH AT BEDTIME mirtazapine 30 mg tablet TAKE ONE TABLET BY MOUTH AT BEDTIME completed mirtazapine 30 MG Oral Ta blet LASHONDA ([facility]) pantoprazole 40 MG Delayed Release Oral Tablet pantoprazole 40 mg tablet,delayed release TAKE ONE TABLET BY MOUTH DAILY pantoprazole 40 mg tablet,delayed release TAKE ONE TABLET BY MOUTH DAILY completed pantoprazole 40 MG Delayed Release Oral Tablet LASHONDA ([facility]) buspirone completed Buspar ATH ANGELO ([facility]) Mirtazapine 30 MG Oral Tablet mirtazapin e 30 mg tablet TAKE ONE TABLET BY MOUTH AT BEDTIME mirtazapine 30 mg tablet TAKE ONE TABLET BY MOUTH AT BEDTIME completed mirtazapine 30 MG Oral Ta blet LASHONDA ([facility]) Mirtazapine 15 MG Oral Tablet mirtazapin e 15 mg tablet TAKE ONE TABLET BY MOUTH AT BEDTIME mirtazapine 15 mg tablet TAKE ONE TABLET BY MOUTH AT BEDTIME completed mirtazapine 15 MG Oral Ta blet LASHONDA ([facility]) Naproxen 500 MG Oral Tablet naproxen 500 mg tablet TAKE ONE TABLET BY MOUTH TWICE A DAY NEEDED naproxen 500 mg tablet TAKE ONE TABLET B Y MOUTH TWICE A DAY NEEDED completed naproxen 500 MG Oral Tablet LASHONDA ([facility]) Lisinopril 10 MG Oral Tablet lisinopril 10 mg tablet Take 1 tablet every day by oral route. lisinopril 10 mg tablet Take 1 tablet every day by oral route. 1 completed lisinopril 10 MG Oral Tablet LASHONDA ([facility]) Trazodone Hydrochloride 100 MG Oral Tabl et trazodone 100 mg tablet TAKE TWO TABLETS BY MOUTH AT BEDTIME trazodone 100 mg tablet TAKE TWO TABLETS BY MOUTH AT BEDTIME completed trazodone hyd rochloride 100 MG Oral Tablet LASHONDA ([facility]) Mirtazapine 7.5 MG Oral Tablet mirtazapi ne 7.5 mg tablet TAKE ONE TABLET BY MOUTH AT BEDTIME mirtazapine 7.5 mg tablet TAKE ONE TABLET BY MOUTH AT BEDTIME completed mirtazapine 7. 5 MG Oral Tablet LASHONDA ([facility]) Trazodone Hydrochloride 100 MG Oral Tabl et trazodone 100 mg tablet TAKE TWO TABLETS BY MOUTH AT BEDTIME trazodone 100 mg tablet TAKE TWO TABLETS BY MOUTH AT BEDTIME completed trazodone hyd rochloride 100 MG Oral Tablet LASHONDA ([facility]) Trazodone Hydrochloride 100 MG Oral Tabl et trazodone 100 mg tablet TAKE TWO TABLETS BY MOUTH AT BEDTIME trazodone 100 mg tablet TAKE TWO TABLETS BY MOUTH AT BEDTIME completed trazodone hyd rochloride 100 MG Oral Tablet LASHONDA ([facility]) Acetaminophen 325 MG Oral Tablet acetami nophen 325 mg tablet TAKE ONE TABLET BY MOUTH EVERY 4 HOURS NEEDED FOR PAIN acetaminophen 325 mg tablet TAKE ONE TABLET BY MOUTH EVERY 4 HOURS NEEDED FOR PAIN completed acetaminophen 325 MG Oral Tablet LASHONDA ([facility]) Mirtazapine 7.5 MG Oral Tablet mirtazapi ne 7.5 mg tablet TAKE ONE TABLET BY MOUTH AT BEDTIME mirtazapine 7.5 mg tablet TAKE ONE TABLET BY MOUTH AT BEDTIME completed mirtazapine 7. 5 MG Oral Tablet LASHONDA ([facility]) Mirtazapine 15 MG Oral Tablet mirtazapin e 15 mg tablet TAKE ONE TABLET BY MOUTH AT BEDTIME mirtazapine 15 mg tablet TAKE ONE TABLET BY MOUTH AT BEDTIME completed mirtazapine 15 MG Oral Ta blet LASHONDA ([facility]) Trulance 3 mg tablet TAKE ONE TABLET BY MOUTH EVERY DAY FOR IBS WITH CONSTIPATION [id number] completed pl ecanatide 3 MG Oral Tablet [Trulance] LASHONDA ([facility]) Trazodone Hydrochloride 100 MG Oral Tabl et trazodone 100 mg tablet TAKE TWO TABLETS BY MOUTH AT BEDTIME trazodone 100 mg tablet TAKE TWO TABLETS BY MOUTH AT BEDTIME completed trazodone hyd rochloride 100 MG Oral Tablet LASHONDA ([facility]) citalopram completed Celexa AT [facility]) citalopram completed Celexa AT [facility]) pantoprazole 40 MG Delayed Release Oral Tablet pantoprazole 40 mg tablet,delayed release TAKE ONE TABLET BY MOUTH DAILY pantoprazole 40 mg tablet,delayed release TAKE ONE TABLET BY MOUTH DAILY completed pantoprazole 40 MG Delayed Release Oral Tablet HOS[place] ([facility]) citalopram completed Celexa AT [facility]) Trulance 3 mg tablet TAKE ONE TABLET BY MOUTH EVERY DAY FOR IBS WITH CONSTIPATION [id number] completed pl ecanatide 3 MG Oral Tablet [Trulance] LASHONDA ([facility]) Phenazopyridine hydrochloride 100 MG Ora l Tablet phenazopyridine 100 mg tablet TAKE 1 TABLET THREE TIMES A DAY AFTER MEALS NEEDED FOR BURNING phenazopyridine 100 mg tablet TAKE 1 TABLET THREE TIMES A DAY AFTER MEALS NEEDED FOR BURNING completed phenazopyridine hydrochloride 100 MG Oral Tablet LASHONDA ([facility]) Mirtazapine 7.5 MG Oral Tablet mirtazapi ne 7.5 mg tablet TAKE ONE TABLET BY MOUTH AT BEDTIME mirtazapine 7.5 mg tablet TAKE ONE TABLET BY MOUTH AT BEDTIME completed mirtazapine 7. 5 MG Oral Tablet LASHONDA ([facility]) trazodone completed Oleptro AT [facility]) Trazodone Hydrochloride 100 MG Oral Tabl et trazodone 100 mg tablet TAKE TWO TABLETS BY MOUTH AT BEDTIME trazodone 100 mg tablet TAKE TWO TABLETS BY MOUTH AT BEDTIME completed trazodone hyd rochloride 100 MG Oral Tablet [place] ([facility]) Mirtazapine 7.5 MG Oral Tablet mirtazapi ne 7.5 mg tablet TAKE ONE TABLET BY MOUTH AT BEDTIME mirtazapine 7.5 mg tablet TAKE ONE TABLET BY MOUTH AT BEDTIME completed mirtazapine 7. 5 MG Oral Tablet [facility] ([facility]) Mirtazapine 30 MG Oral Tablet mirtazapin e 30 mg tablet TAKE ONE TABLET BY MOUTH AT BEDTIME mirtazapine 30 mg tablet TAKE ONE TABLET BY MOUTH AT BEDTIME completed mirtazapine 30 MG Oral Ta blet [place] ([facility]) trazodone completed Oleptro AT [facility]) trazodone completed Oleptro AT [facility] ([facility]) Metronidazole 500 MG Oral Tablet metroni dazole 500 mg tablet TAKE ONE TABLET BY MOUTH THREE TIMES A DAY metronidazole 500 mg tablet TAKE ONE TAB LET BY MOUTH THREE TIMES A DAY completed metr onidazole 500 MG Oral Tablet [place] ([facility]) Lisinopril 10 MG Oral Tablet lisinopril 10 mg tablet Take 1 tablet every day by oral route. lisinopril 10 mg tablet Take 1 tablet every day by oral route. 1 completed lisinopril 10 MG Oral Tablet H[facility] ([facility]) fluticasone 113 mcg-salmeterol 14 mcg/ac tuation breath activated powdr INHALE ONE PUFF BY MOUTH EVERY 12 HOURS [id number] comp leted 60 ACTUAT fluticasone propionate 0.113 MG/ACTUAT / salmeterol 0.014 MG/ACTUAT Dry Powder Inhaler [facility] ([facility]) Mirtazapine 30 MG Oral Tablet mirtazapin e 30 mg tablet TAKE ONE TABLET BY MOUTH AT BEDTIME mirtazapine 30 mg tablet TAKE ONE TABLET BY MOUTH AT BEDTIME completed mirtazapine 30 MG Oral Ta blet [place] ([facility]) Trazodone Hydrochloride 100 MG Oral Tabl et trazodone 100 mg tablet TAKE TWO TABLETS BY MOUTH AT BEDTIME trazodone 100 mg tablet TAKE TWO TABLETS BY MOUTH AT BEDTIME completed trazodone hyd rochloride 100 MG Oral Tablet LASHONDA ([facility]) tizanidine 4 MG Oral Tablet tizanidine 4 mg tablet TAKE ONE TABLET BY MOUTH THREE TIMES A DAY NEEDED tizanidine 4 mg tablet TAKE ONE TABLET B Y MOUTH THREE TIMES A DAY NEEDED completed tizanidine 4 MG Oral Tablet LASHONDA ([facility]) Mirtazapine 15 MG Oral Tablet mirtazapin e 15 mg tablet TAKE ONE TABLET BY MOUTH AT BEDTIME mirtazapine 15 mg tablet TAKE ONE TABLET BY MOUTH AT BEDTIME completed mirtazapine 15 MG Oral Ta blet LASHONDA ([facility]) Lisinopril 10 MG Oral Tablet lisinopril 10 mg tablet Take 1 tablet every day by oral route. lisinopril 10 mg tablet Take 1 tablet every day by oral route. 1 completed lisinopril 10 MG Oral Tablet LASHONDA ([facility]) tizanidine 4 MG Oral Tablet tizanidine 4 mg tablet TAKE ONE TABLET BY MOUTH THREE TIMES A DAY NEEDED tizanidine 4 mg tablet TAKE ONE TABLET B Y MOUTH THREE TIMES A DAY NEEDED completed tizanidine 4 MG Oral Tablet LASHONDA ([facility]) Lisinopril 10 MG Oral Tablet lisinopril 10 mg tablet Take 1 tablet every day by oral route. lisinopril 10 mg tablet Take 1 tablet every day by oral route. 1 completed lisinopril 10 MG Oral Tablet LASHONDA ([facility]) Naproxen 500 MG Oral Tablet naproxen 500 mg tablet TAKE ONE TABLET BY MOUTH TWICE A DAY NEEDED naproxen 500 mg tablet TAKE ONE TABLET B Y MOUTH TWICE A DAY NEEDED completed naproxen 500 MG Oral Tablet LASHONDA ([facility]) Trazodone Hydrochloride 100 MG Oral Tabl et trazodone 100 mg tablet TAKE TWO TABLETS BY MOUTH AT BEDTIME trazodone 100 mg tablet TAKE TWO TABLETS BY MOUTH AT BEDTIME completed trazodone hyd rochloride 100 MG Oral Tablet LASHONDA ([facility]) buspirone completed Buspar ATH ANGELO ([facility]) Mirtazapine 15 MG Oral Tablet mirtazapin e 15 mg tablet TAKE ONE TABLET BY MOUTH AT BEDTIME mirtazapine 15 mg tablet TAKE ONE TABLET BY MOUTH AT BEDTIME completed mirtazapine 15 MG Oral Ta blet LASHONDA ([facility]) Mirtazapine 7.5 MG Oral Tablet mirtazapi ne 7.5 mg tablet TAKE ONE TABLET BY MOUTH AT BEDTIME mirtazapine 7.5 mg tablet TAKE ONE TABLET BY MOUTH AT BEDTIME completed mirtazapine 7. 5 MG Oral Tablet LASHONDA ([facility]) Mirtazapine 15 MG Oral Tablet mirtazapin e 15 mg tablet TAKE ONE TABLET BY MOUTH AT BEDTIME mirtazapine 15 mg tablet TAKE ONE TABLET BY MOUTH AT BEDTIME completed mirtazapine 15 MG Oral Ta blet LASHONDA ([facility]) Mirtazapine 30 MG Oral Tablet mirtazapin e 30 mg tablet TAKE ONE TABLET BY MOUTH AT BEDTIME mirtazapine 30 mg tablet TAKE ONE TABLET BY MOUTH AT BEDTIME completed mirtazapine 30 MG Oral Ta blet LASHONDA ([facility]) Phenazopyridine hydrochloride 100 MG Ora l Tablet phenazopyridine 100 mg tablet TAKE 1 TABLET THREE TIMES A DAY AFTER MEALS NEEDED FOR BURNING phenazopyridine 100 mg tablet TAKE 1 TABLET THREE TIMES A DAY AFTER MEALS NEEDED FOR BURNING completed phenazopyridine hydrochloride 100 MG Oral Tablet LASHONDA ([facility]) pantoprazole 40 MG Delayed Release Oral Tablet pantoprazole 40 mg tablet,delayed release TAKE ONE TABLET BY MOUTH DAILY pantoprazole 40 mg tablet,delayed release TAKE ONE TABLET BY MOUTH DAILY completed pantoprazole 40 MG Delayed Release Oral Tablet LASHONDA ([facility]) Mirtazapine 30 MG Oral Tablet mirtazapin e 30 mg tablet TAKE ONE TABLET BY MOUTH AT BEDTIME mirtazapine 30 mg tablet TAKE ONE TABLET BY MOUTH AT BEDTIME completed mirtazapine 30 MG Oral Ta blet LASHONDA ([facility]) Phenazopyridine hydrochloride 100 MG Ora l Tablet phenazopyridine 100 mg tablet TAKE 1 TABLET THREE TIMES A DAY AFTER MEALS NEEDED FOR BURNING phenazopyridine 100 mg tablet TAKE 1 TABLET THREE TIMES A DAY AFTER MEALS NEEDED FOR BURNING completed phenazopyridine hydrochloride 100 MG Oral Tablet L[facility]ONDA ([facility]) fluticasone 113 mcg-salmeterol 14 mcg/ac tuation breath activated powdr INHALE ONE PUFF BY MOUTH EVERY 12 HOURS [id number] comp leted 60 ACTUAT fluticasone propionate 0.113 MG/ACTUAT / salmeterol 0.014 MG/ACTUAT Dry Powder Inhaler LASHONDA ([facility]) Mirtazapine 30 MG Oral Tablet mirtazapin e 30 mg tablet TAKE ONE TABLET BY MOUTH AT BEDTIME mirtazapine 30 mg tablet TAKE ONE TABLET BY MOUTH AT BEDTIME completed mirtazapine 30 MG Oral Ta blet LASHONDA ([facility]) Trulance 3 mg tablet TAKE ONE TABLET BY MOUTH EVERY DAY FOR IBS WITH CONSTIPATION [id number] completed pl ecanatide 3 MG Oral Tablet [Trulance] LASHONDA ([facility]) buspirone hydrochloride 30 MG Oral Table t buspirone 30 mg tablet TAKE ONE TABLET BY MOUTH TWICE A DAY buspirone 30 mg tablet TAKE ONE TABLET B Y MOUTH TWICE A DAY completed buspirone hydroc hloride 30 MG Oral Tablet LASHONDA ([facility]) buspirone completed Buspar ATH ANGELO ([facility]) Trazodone Hydrochloride 100 MG Oral Tabl et trazodone 100 mg tablet TAKE TWO TABLETS BY MOUTH AT BEDTIME trazodone 100 mg tablet TAKE TWO TABLETS BY MOUTH AT BEDTIME completed trazodone hyd rochloride 100 MG Oral Tablet LASHONDA ([facility]) Mirtazapine 30 MG Oral Tablet mirtazapin e 30 mg tablet TAKE ONE TABLET BY MOUTH AT BEDTIME mirtazapine 30 mg tablet TAKE ONE TABLET BY MOUTH AT BEDTIME completed mirtazapine 30 MG Oral Ta blet LASHONDA ([facility]) quetiapine 50 MG Oral Tablet quetiapine 50 mg tablet TAKE ONE TABLET BY MOUTH AT BEDTIME quetiapine 50 mg tablet TAKE ONE TABLET BY MOUTH AT BEDTIME completed quetiapine 50 MG Oral Tablet LASHONDA ([facility]) Mirtazapine 30 MG Oral Tablet mirtazapin e 30 mg tablet TAKE ONE TABLET BY MOUTH AT BEDTIME mirtazapine 30 mg tablet TAKE ONE TABLET BY MOUTH AT BEDTIME completed mirtazapine 30 MG Oral Ta blet LASHONDA ([facility]) Acetaminophen 325 MG Oral Tablet acetami nophen 325 mg tablet TAKE ONE TABLET BY MOUTH EVERY 4 HOURS NEEDED FOR PAIN acetaminophen 325 mg tablet TAKE ONE TABLET BY MOUTH EVERY 4 HOURS NEEDED FOR PAIN completed acetaminophen 325 MG Oral Tablet LASHONDA ([facility]) Trulance 3 mg tablet TAKE ONE TABLET BY MOUTH EVERY DAY FOR IBS WITH CONSTIPATION [id number] completed pl ecanatide 3 MG Oral Tablet [Trulance] LASHONDA ([facility]) Trazodone Hydrochloride 100 MG Oral Tabl et trazodone 100 mg tablet TAKE TWO TABLETS BY MOUTH AT BEDTIME trazodone 100 mg tablet TAKE TWO TABLETS BY MOUTH AT BEDTIME completed trazodone hyd rochloride 100 MG Oral Tablet LASHONDA ([facility]) Mirtazapine 7.5 MG Oral Tablet mirtazapi ne 7.5 mg tablet TAKE ONE TABLET BY MOUTH AT BEDTIME mirtazapine 7.5 mg tablet TAKE ONE TABLET BY MOUTH AT BEDTIME completed mirtazapine 7. 5 MG Oral Tablet [facility] ([facility]) pantoprazole 40 MG Delayed Release Oral Tablet pantoprazole 40 mg tablet,delayed release TAKE ONE TABLET BY MOUTH DAILY pantoprazole 40 mg tablet,delayed release TAKE ONE TABLET BY MOUTH DAILY completed pantoprazole 40 MG Delayed Release Oral Tablet LASHONDA ([facility]) Mirtazapine 7.5 MG Oral Tablet mirtazapi ne 7.5 mg tablet TAKE ONE TABLET BY MOUTH AT BEDTIME mirtazapine 7.5 mg tablet TAKE ONE TABLET BY MOUTH AT BEDTIME completed mirtazapine 7. 5 MG Oral Tablet LASHONDA ([facility]) Trulance 3 mg tablet TAKE ONE TABLET BY MOUTH EVERY DAY FOR IBS WITH CONSTIPATION [id number] completed pl ecanatide 3 MG Oral Tablet [Trulance] LASHONDA ([facility]) buspirone hydrochloride 30 MG Oral Table t buspirone 30 mg tablet TAKE ONE TABLET BY MOUTH TWICE A DAY buspirone 30 mg tablet TAKE ONE TABLET B Y MOUTH TWICE A DAY completed buspirone hydroc hloride 30 MG Oral Tablet LASHONDA ([facility]) Insurance Providers Payer name Policy type / Coverage type Policy ID Covered republican ID Covered republican's relationship to wilson Policy Wilson Plan Information Medicaid Dental S [id number] Medicaid S [id number] S [id number] [facility] COMMUNITY PLAN [facility] [id number] Managed Care - [facility] P [id number] S [id number] [employer] COMMUNITY PLAN MCDHMO [id number] SP [id number] D Managed Care [employer] P [id number] S [id number] [facility] I [id number] Self [id number] Medicaid S [id number] S [id number] [employer] COMMUNITY PLAN MCDHMO [id number] SP [id number] [facility] MEDICAID [id number] Radha [id number] Managed Care - [facility] P [id number] S [id number] [employer] COMMUNITY PLAN MCDHMO [id number] SP [id number] [facility] Comm Plan Medicaid F [id number] SELF [id number] Medicaid S [id number] S [id number] Managed Care - [facility] Community Plan P [id number] S [id number] [facility] Comm Plan Medicaid F [id number] SELF [id number] [employer] COMMUNITY PLAN MCDHMO [id number] SP [id number] Managed Care - [facility] P [id number] S [id number] [facility] - [facility] [facility] Community Plan P [id number] S [id number] [facility] [id number] SP [id number] UNHC COMMUNITY PLAN MCDHMO [id number] SP [id number] MEDICAID [id number] SP [id number] UNHC COMMUNITY PLAN MCDHMO [id number] SP [id number] [facility] O [id number] S [id number] [facility](MCAID) O [id number] S [id number] EMEDNY [id number] SP [id number] [facility] Health Maintenance Organization (HMO) [id number] Self [id number] ANSI-Medicaid [id number] ANSI-Medicaid [id number] ANSI-Medicaid [id number] ANSI-Medicaid [id number] ANSI-Medicaid [id number] ANSI-Medicaid [id number] ANS-Medicaid [id number] [facility] Health Maintenance Organization (HMO) [id number] Self [id number] ANSI-Medicaid [id number] ANSI-Medicaid [id number] 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 Condition 03/28/2021 12:00:00 AM EDT [facility] ([facility]) F33.3 Major depressive disorder, recurrent, se reyna with psychotic symptoms Major Depressive Disorder, Recurrent episode, With psychotic features Condition 03/28/2021 12:00:00 AM EDT [facility] ([facility]) F17.200 Tobacco use Tobacco use disorder Problem 03/07/2021 12: 00:00 AM EDT eCW1 ([facility]) N95.2 [id number] Atrophic vaginitis Problem 11/10/2020 12:00: 00 AM EDT eCW1 ([facility]) Surgeries/Procedures Procedure Description Date Indications Data Source(s) OFFICE OUTPATIENT VISIT 15 MINUTES 03/28 12:00:00 AM EDT - 03/28/2021 12:00:00 AM EDT [facility] ([facility]) OFFICE OUTPATIENT VISIT 15 MINUTES 03/28/2021 12:00:00 AM EDT [facility] ([facility]) Extended Individual Psychotherapy - 45 min 03/24/2021 12:00:00 AM EDT - 03/24/2021 12:00:00 AM EDT [facility] ([facility]) Extended Individual Psychotherapy - 45 min 12:00:00 AM EDT [facility] ([facility]) OFFICE OUTPATIENT VISIT 25 MINUTES 03/10/2021 12:00:00 AM EDT [facility] ([facility]) TOBACCO USE CESSATION INTERMEDIATE 3-10 MINUTES 2020 12:00:00 AM EDT [facility] ([facility]) Extended Individual Psychotherapy - 45 min 03/07/2021 12:00:00 AM EDT - 03/07/2021 12:00:00 AM EDT [facility] ([facility]) Extended Individual Psychotherapy - 45 min 12:00:00 AM EDT [facility] ([facility]) OFFICE OUTPATIENT VISIT 15 MINUTES 02/16 12:00:00 AM EDT - 02/16/2021 12:00:00 AM EDT [facility] ([facility]) OFFICE OUTPATIENT VISIT 15 MINUTES 02/16/2021 12:00:00 AM EDT [facility] ([facility]) Extended Individual Psychotherapy - 45 min 02/04/2021 12:00:00 AM EDT - 02/04/2021 12:00:00 AM EDT [facility] ([facility]) Extended Individual Psychotherapy - 45 min 12:00:00 AM EDT [facility] ([facility]) OFFICE OUTPATIENT VISIT 25 MINUTES 01/20/2021 12:00:00 AM EDT [facility] ([facility], ) TOBACCO USE CESSATION INTERMEDIATE 3-10 MINUTES 2020 12:00:00 AM EDT [facility] ([facility], ) Extended Individual Psychotherapy - 45 min 01/06/2021 12:00:00 AM EDT - 01/06/2021 12:00:00 AM EDT [facility] ([facility]) Extended Individual Psychotherapy - 45 min 12:00:00 AM EDT [facility] ([facility]) Bronchospasm Evaluation 12/31/2020 12:00:00 AM EDT [facility] ([facility], ) Plethysmography Determination Lung Volumes & Per Airway Resi st 12/31/2020 12:00:00 AM EDT [facility] ([facility] ) DIFFUSING CAPACITY 12/31/2020 12:00:00 AM EDT [facility] ([facility], ) OFFICE OUTPATIENT VISIT 15 MINUTES 12/09 12:00:00 AM EDT - 12/09/2020 12:00:00 AM EDT [facility] ([facility]) OFFICE OUTPATIENT VISIT 15 MINUTES 12/09/2020 12:00:00 AM EDT [facility] ([facility]) Extended Individual Psychotherapy - 45 min 12/08/2020 12:00:00 AM EDT - 12/08/2020 12:00:00 AM EDT [facility] ([facility]) Extended Individual Psychotherapy - 45 min 12:00:00 AM EDT [facility] ([facility]) Spirometry 12/07/2020 12:00:00 AM EDT M EDENT ([facility], ) OFFICE OUTPATIENT NEW 45 MINUTES 12/07/2020 12:00:00 A M EDT [facility] ([facility], ) TOBACCO USE CESSATION INTERMEDIATE 3-10 MINUTES 2020 12:00:00 AM EDT [facility] ([facility] ) Extended Individual Psychotherapy - 45 min 11/16/2020 12:00:00 AM EDT - 11/16/2020 12:00:00 AM EDT [facility] ([facility]) Extended Individual Psychotherapy - 45 min 12:00:00 AM EDT [facility] ([facility]) uro PVR (Post Voiding Residual) Bladder Scan 12:00:00 AM EDT eCW1 ([facility]) OFFICE OUTPATIENT VISIT 15 MINUTES 10/28 12:00:00 AM EDT - 10/28/2020 12:00:00 AM EDT [facility] ([facility]) OFFICE OUTPATIENT VISIT 15 MINUTES 10/28/2020 12:00:00 AM EDT [facility] ([facility]) XR, chest, 2 view 10/19/2020 12:00:00 [facility], 2 view 10/19/2020 12:00:00 AM [facility], chest, 2 view 10/19/2020 12:00:00 AM EDT [facility]) XR, chest, 2 view 10/19/2020 12:00:00 AM [facility], chest, 2 view 10/19/2020 12:00:00 AM [facility] OFFICE OUTPATIENT VISIT 15 MINUTES 10/14 12:00:00 AM EDT - 10/14/2020 12:00:00 AM EDT [facility] ([facility]) OFFICE OUTPATIENT VISIT 15 MINUTES 10/14/2020 12:00:00 AM EDT [facility] ([facility]) MRI, lumbar spine, w/o contrast 09/20/2020 12:00:00 AM EDT [facility] ([facility]) Extended Individual Psychotherapy - 45 min 09/07/2020 12:00:00 AM EDT - 09/07/2020 12:00:00 AM EDT [facility] ([facility]) Extended Individual Psychotherapy - 45 min 12:00:00 AM EDT [facility] ([facility]) MHC Telemed E/M Lvl 3--Est pt 09/01/2020 12:00:00 AM EDT - 09/01/2020 12:00:00 AM EDT [facility] ([facility]) MHC Telemed E/M Lvl 3--Est pt 09/01/2020 12:00:00 AM E DT [facility] ([facility]) [id number]"Psychotherapy 12:00:00 AM EDT - 08/17/2020 12:00:00 AM EDT [facility] ([facility]) [id number]"Psychotherapy 08/17/2020 12:00:00 AM EDT [facility] ([facility]) [id number]"Psychotherapy 12:00:00 AM EST - 08/02/2020 12:00:00 AM EST [facility] ([facility]) [id number]"Psychotherapy 08/02/2020 12:00:00 AM EST [facility] ([facility]) Extended Individual Psychotherapy - 45 min 07/14/2020 12:00:00 AM EST - 07/14/2020 12:00:00 AM EST [facility] ([facility]) Extended Individual Psychotherapy - 45 min 12:00:00 AM EST [facility] ([facility]) Extended Individual Psychotherapy - 45 min 06/28/2020 12:00:00 AM EST - 06/28/2020 12:00:00 AM EST [facility] ([facility]) Extended Individual Psychotherapy - 45 min 12:00:00 AM EST [facility] ([facility]) OFFICE OUTPATIENT VISIT 15 MINUTES 06/28 12:00:00 AM EST - 06/28/2020 12:00:00 AM EST [facility] ([facility]) Extended Individual Psychotherapy - 45 min 06/09/2020 12:00:00 AM EST - 06/09/2020 12:00:00 AM EST [facility] ([facility]) Extended Individual Psychotherapy - 45 min 12:00:00 AM EST [facility] ([facility]) OFFICE OUTPATIENT VISIT 15 MINUTES 05/24/2020 12:00:00 AM EST [facility] ([facility]) Extended Individual Psychotherapy - 45 min 05/17/2020 12:00:00 AM EST - 05/17/2020 12:00:00 AM EST [facility] ([facility]) Extended Individual Psychotherapy - 45 min 0 12:00:00 AM EST [facility] ([facility]) Extended Individual Psychotherapy - 45 min 04/30/2020 12:00:00 AM EST - 04/30/2020 12:00:00 AM EST [facility] ([facility]) Extended Individual Psychotherapy - 45 min 0 12:00:00 AM EST [facility] ([facility]) OFFICE OUTPATIENT VISIT 15 MINUTES 04/07 12:00:00 AM EST - 04/07/2020 12:00:00 AM EST [facility] ([facility]) OFFICE OUTPATIENT VISIT 15 MINUTES 04/07/2020 12:00:00 AM EST [facility] ([facility]) Extended Individual Psychotherapy - 45 min 03/15/2020 12:00:00 AM EDT - 03/15/2020 12:00:00 AM EDT [facility] ([facility]) Extended Individual Psychotherapy - 45 min 0 12:00:00 AM EDT [facility] ([facility]) MHC Telemed E/M Lvl 3--Est pt 03/08/2020 12:00:00 AM EDT - 03/08/2020 12:00:00 AM EDT [facility] ([facility]) MHC Telemed E/M Lvl 3--Est pt 03/08/2020 12:00:00 AM E DT [facility] ([facility]) Results ID Date Data Source Basic Metabolic Profile (BMP) 03/07/2021 12:00:00 AM EDT eCW 1 ([facility]) Name Value Range Interpretation Code Description Data Sharmila rce(s) Supporting Document(s) 38.5 >51 GLOMERULAR FILTRATION RATE eCW 1 ([facility]) 147 70-100 GLUCOSE, FASTING eCW1 ([facility]) 1.49 0.55-1.30 CREATININE FOR GFR eCW1 ([facility]) 22 7-18 BLOOD UREA NITROGEN eCW1 ([facility]) 8.9 8.5-10.1 CALCIUM LEVEL eCW1 ([facility]) 30 21-32 CARBON DIOXIDE LEVEL eCW1 ([facility]) 141 136-145 SODIUM LEVEL eCW1 ([facility]) 3.6 3.5-5.1 POTASSIUM SERUM eCW1 ([facility]) 106 98-107 CHLORIDE LEVEL eCW1 ([facility]) ID Date Data Source [id number] 02/07/2021 12:00:00 AM EDT [facility] ([facility]) Name Value Range Interpretation Code Description Data Sharmila rce(s) Supporting Document(s) ID Date Data Source [id number] 02/07/2021 12:00:00 AM EDT [facility] ([facility]) Name Value Range Interpretation Code Description Data Sharmila rce(s) Supporting Document(s) SARS-CoV-2 (COVID-19) RNA [Presence] in Respiratory specimen by NICOLASA with probe detection negative negative Sars-cov-2 [facility] ([facility]) ID Date Data Source [id number] 02/07/2021 12:00:00 AM EDT [facility] ([facility]) Name Value Range Interpretation Code Description Data Sharmila rce(s) Supporting Document(s) ID Date Data Source [id number] 02/07/2021 12:00:00 AM EDT [facility] Name Value Range Interpretation Code Description Data Sharmila rce(s) Supporting Document(s) SARS-CoV-2 NEGATIVE [facility] This lab was ordered by [facility]-COVID19 and reported by [employer]. ID Date Data Source [id number] 02/07/2021 12:00:00 AM EDT [facility] ([facility]) Name Value Range Interpretation Code Description Data Sharmila rce(s) Supporting Document(s) SARS-CoV-2 (COVID-19) RNA [Presence] in Respiratory specimen by NICOLASA with probe detection negative negative Sars-cov-2 [facility] ([facility]) ID Date Data Source [id number] 02/07/2021 12:00:00 AM EDT [facility] ([facility]) Name Value Range Interpretation Code Description Data Sharmila rce(s) Supporting Document(s) ID Date Data Source [id number] 02/07/2021 12:00:00 AM EDT [facility] ([facility]) Name Value Range Interpretation Code Description Data Sharmila rce(s) Supporting Document(s) SARS-CoV-2 (COVID-19) RNA [Presence] in Respiratory specimen by NICOLASA with probe detection negative negative Sars-cov-2 [facility] ([facility]) ID Date Data Source [id number] 02/07/2021 12:00:00 AM EDT [facility] ([facility]) Name Value Range Interpretation Code Description Data Sharmila rce(s) Supporting Document(s) ID Date Data Source [id number] 02/07/2021 12:00:00 AM EDT [facility] Name Value Range Interpretation Code Description Data Sharmila rce(s) Supporting Document(s) SARS-CoV-2 (COVID-19) RNA [Presence] in Respiratory specimen by NICOLASA with probe detection negative negative Sars-cov-2 [facility]) ID Date Data Source [id number] 02/02/2021 12:00:00 AM EDT [facility]) Name Value Range Interpretation Code Description Data Sharmila rce(s) Supporting Document(s) ID Date Data Source [id number] 02/02/2021 12:00:00 AM EDT [facility]) Name Value Range Interpretation Code Description Data Sharmila rce(s) Supporting Document(s) ID Date Data Source [id number] 02/02/2021 12:00:00 AM EDT [facility]) Name Value Range Interpretation Code Description Data Sharmila rce(s) Supporting Document(s) ID Date Data Source [id number] 02/02/2021 12:00:00 [facility] Name Value Range Interpretation Code Description Data Sharmila rce(s) Supporting Document(s) ID Date Data Source [id number] 01/21/2021 12:00:00 AM EDT [facility]) Name Value Range Interpretation Code Description Data Sharmila rce(s) Supporting Document(s) SARS-CoV-2 (COVID-19) RNA [Presence] in Respiratory specimen by NICOLASA with probe detection negative negative [facility]cov-[facility] ID Date Data Source [id number] 01/21/2021 12:00:00 AM EDT [place] ([facility]) Name Value Range Interpretation Code Description Data Sharmila rce(s) Supporting Document(s) ID Date Data Source [id number] 01/21/2021 12:00:00 AM EDT [place] ([facility]) Name Value Range Interpretation Code Description Data Sharmila rce(s) Supporting Document(s) SARS-CoV-2 (COVID-19) RNA [Presence] in Respiratory specimen by NICOLASA with probe detection negative negative Sars-cov-2 [facility] ([facility]) ID Date Data Source [id number] 01/21/2021 12:00:00 AM EDT [place] ([facility]) Name Value Range Interpretation Code Description Data Sharmila rce(s) Supporting Document(s) ID Date Data Source [id number] 01/21/2021 12:00:00 AM EDT [place] ([facility]) Name Value Range Interpretation Code Description Data Sharmila rce(s) Supporting Document(s) SARS-CoV-2 (COVID-19) RNA [Presence] in Respiratory specimen by NICOLASA with probe detection negative negative Sars-cov-2 [facility] ([facility]) ID Date Data Source [id number] 01/21/2021 12:00:00 AM EDT [place] ([facility]) Name Value Range Interpretation Code Description Data Sharmila rce(s) Supporting Document(s) ID Date Data Source [id number] 01/21/2021 12:00:00 AM EDT [place] ([facility]) Name Value Range Interpretation Code Description Data Sharmila rce(s) Supporting Document(s) SARS-CoV-2 (COVID-19) RNA [Presence] in Respiratory specimen by NICOLASA with probe detection negative negative Sars-cov-2 [facility] ([facility]) ID Date Data Source [id number] 01/21/2021 12:00:00 AM EDT [place] ([facility]) Name Value Range Interpretation Code Description Data Sharmila rce(s) Supporting Document(s) ID Date Data Source [id number] 01/21/2021 12:00:00 AM EDT [facility] Name Value Range Interpretation Code Description Data Sharmila rce(s) Supporting Document(s) SARS-CoV-2 NEGATIVE [facility] This lab was ordered by [facility]-C[facility] and reported by [employer]. ID Date Data Source [id number] 01/21/2021 12:00:00 AM EDT [place] ([facility]) Name Value Range Interpretation Code Description Data Sharmila rce(s) Supporting Document(s) SARS-CoV-2 (COVID-19) RNA [Presence] in Respiratory specimen by NICOLASA with probe detection negative negative Sars-cov-2 [facility] ([facility]) ID Date Data Source [id number] 01/21/2021 12:00:00 AM EDT [place] ([facility]) Name Value Range Interpretation Code Description Data Sharmila rce(s) Supporting Document(s) ID Date Data Source [id number] 01/21/2021 12:00:00 AM EDT [place] ([facility]) Name Value Range Interpretation Code Description Data Sharmila rce(s) Supporting Document(s) SARS-CoV-2 (COVID-19) RNA [Presence] in Respiratory specimen by NICOLASA with probe detection negative negative Sars-cov-2 [facility] ([facility]) ID Date Data Source [id number] 01/21/2021 12:00:00 AM EDT [place] ([facility]) Name Value Range Interpretation Code Description Data Sharmila rce(s) Supporting Document(s) ID Date Data Source [id number] 12/31/2020 03:07:00 PM EDT [facility] ([facility]) Name Value Range Interpretation Code Description Data Sharmila rce(s) Supporting Document(s) Misc Laboratory test result [facility] ([facility]) ID Date Data Source [id number] 12/07/2020 01:12:00 PM EDT [facility] ([facility]) Name Value Range Interpretation Code Description Data Sharmila rce(s) Supporting Document(s) PDFReport Laboratory test result [facility] ([facility]) FVC-Pred 2.84 L [facility]) FVC-%Pred-Pre 73 L [facility] ([facility]) FVC-Pre 2.08 L [facility] ([facility]) FVC-LLN 2.25 L [facility] ([facility]) Fev1-Pred 2.23 L [facility] ([facility]) Fev1-Pre 1.56 L [facility] ([facility]) Fev1-LLN 1.73 L [facility] ([facility]) Fev1-%Pred-Pre 69 L [facility] ([facility]) Fev6-Pred 2.76 L [facility] ([facility]) Fev6-Pre 2.08 L [facility] ([facility]) Fev6-%Pred-Pre 75 L [facility] ([facility]) Fev6-LLN 2.18 L [facility] ([facility]) Whx0yxj-Kzjf 79 % [facility] ([facility]) Hbc6oxs-Esz 75 % [facility] ([facility]) Vwk0wgh-Ihnr 97 % [facility] ([facility]) Ysw2jck-WHS 69 % [facility] ([facility]) Swn3hty-%Pred-Pre 94 % [facility] ([facility]) Xmx1auc-%Pred-Pre 103 % [facility] ([facility]) Kks3dmn-Tqi 100 % [facility] ([facility], ) FEFMax-Pred 5.80 L/E/sec MED[facility] ([facility]) FEFMax-LLN 4.34 L/E/sec [facility] ([facility]) FEFMax-%Pred-Pre 58 L/E/sec [facility] ([facility]) FEFMax-Pre 3.39 L/E/sec [facility] ([facility]) Kvm2947-Zjea 2.28 L/E/sec [facility] ([facility]) Zid3939-Mlu 1.20 L/E/sec [facility] ([facility]) Fon7017-%Pred-Pre 52 L/E/sec [facility] ([facility]) Loj8494-NAC 1.23 L/E/sec [facility] ([facility]) ExpTime-Pre 6.25 sec [facility] ([facility]) Xld9mih6-Burk 82 % [facility] ([facility]) Les2aho3-COK 73 % [facility] ([facility]) Pre6wrp6-%Pred-Pre 91 % [facility] ([facility]) Oji7iwo5-Jos 75 % [facility] ([facility]) ID Date Data Source Microscopic Only Urine (Auto) 11/10/2020 12:00:00 AM EDT eCW 1 ([facility]) Name Value Range Interpretation Code Description Data Sharmila rce(s) Supporting Document(s) 4 0-3 RBC, URINE AUTO eCW1 ([facility]) 3 0-3 WBC, URINE AUTO eCW1 ([facility]) NEGATIVE NEGATIVE BACTERIA, URINE AUTO eCW1 ([facility]) SMALL NEGATIVE MUCUS, URINE eCW1 ([facility]) 5 0-1 HYALINE CAST, URINE AUTO eCW1 ([facility]) 1 0-6 SQUAMOUS EPITHELIAL CELL UR AU eCW1 ([facility]) ID Date Data Source URINE CULTURE 11/10/2020 12:00:00 AM EDT eCW1 [facility] Name Value Range Interpretation Code Description Data Sharmila rce(s) Supporting Document(s) URINE CULTURE eCW1 ([facility]) ID Date Data Source [id number] 09/10/2020 09:18:00 AM EDT [facility]) Name Value Range Interpretation Code Description Data Sharmila rce(s) Supporting Document(s) ID Date Data Source [id number] 09/10/2020 09:18:00 AM EDT [facility]) Name Value Range Interpretation Code Description Data Sharmila rce(s) Supporting Document(s) ID Date Data Source [id number] 09/10/2020 09:18:00 AM EDT [facility]) Name Value Range Interpretation Code Description Data Sharmila rce(s) Supporting Document(s) ID Date Data Source [id number] 09/10/2020 09:18:00 AM EDT [facility]) Name Value Range Interpretation Code Description Data Sharmila rce(s) Supporting Document(s) ID Date Data Source [id number] 09/10/2020 09:18:00 AM EDT [facility]) Name Value Range Interpretation Code Description Data Sharmila rce(s) Supporting Document(s) ID Date Data Source [id number] 09/10/2020 09:16:00 AM EDT [facility]) Name Value Range Interpretation Code Description Data Sharmila rce(s) Supporting Document(s) appearance, urine rfx clear clear Appearance, Ur ine Rfx [facility]) color, urine rfx straw yellow Color, Urine Rfx [facility] ([facility]) pH,urine rfx 7.0 units 5.0-9.0 pH,urine Rfx [facility] ([facility]) specific gravity ur auto rfx 1.002-1.035 Specif ic [place] Ur Auto Rfx [facility] ([facility]) protein, urine auto rfx negative negative Protein, Uri ne Auto Rfx [place] ([facility]) glucose, urine (UA) auto rfx negative negative Glucose , Urine (UA) Auto Rfx [place] ([facility]) ketone, urine auto rfx negative negative Ketone, Urine Auto Rfx [place] ([facility]) urobilinogen, urine auto rfx 0.2 mg/dL 0.0-2.0 Urobili nogen, Urine Auto Rfx [place] ([facility]) leukocyte esterase ur auto rfx negative negative Leukocyte Esterase Ur Auto Rfx [place] ([facility]) nitrite, urine auto rfx negative negative Nitrite, Uri ne Auto Rfx [place] ([facility]) bilirubin, urine auto rfx negative negative Bilirubin, Urine Auto Rfx [place] ([facility]) blood, urine blood rfx 1+ negative Above high normal Blood, Urine Blood Rfx [place] ([facility]) WBC, urine auto rfx 1 /hpf 0-3 WBC, Urine Auto Rfx [place] ([facility]) bacteria, urine auto rfx negative negative Bacteria, U rine Auto Rfx [place] ([facility]) RBC, urine auto rfx 1 /hpf 0-3 RBC, Urine Auto Rfx [place] ([facility]) squam epithelial cell ur aurfx 1 /hpf 0-6 Squam Epithelial Cell Ur Aurfx [place] ([facility]) hyaline cast, urine auto rfx 0 /lpf 0-1 Hyaline Cast, Urine Auto Rfx [place] ([facility]) ID Date Data Source [id number] 09/10/2020 09:16:00 AM EDT [place] ([facility]) Name Value Range Interpretation Code Description Data Sharmila rce(s) Supporting Document(s) appearance, urine rfx clear clear Appearance, Ur ine Rfx [place] ([facility]) color, urine rfx straw yellow Color, Urine Rfx [place] ([facility]) pH,urine rfx 7.0 units 5.0-9.0 pH,urine Rfx [place] (No [facility]) specific gravity ur auto rfx 1.002-1.035 Specif ic [place] Ur Auto Rfx [place] ([facility]) protein, urine auto rfx negative negative Protein, Uri ne Auto Rfx [place] ([facility]) glucose, urine (UA) auto rfx negative negative Glucose , Urine (UA) Auto Rfx [place] ([facility]) ketone, urine auto rfx negative negative Ketone, Urine Auto Rfx [place] ([facility]) urobilinogen, urine auto rfx 0.2 mg/dL 0.0-2.0 Urobili nogen, Urine Auto Rfx [place] ([facility]) bilirubin, urine auto rfx negative negative Bilirubin, Urine Auto Rfx [place] ([facility]) leukocyte esterase ur auto rfx negative negative Leukocyte Esterase Ur Auto Rfx [place] ([facility]) nitrite, urine auto rfx negative negative Nitrite, Uri ne Auto Rfx [place] ([facility]) blood, urine blood rfx 1+ negative Above high normal Blood, Urine Blood Rfx [place] ([facility]) RBC, urine auto rfx 1 /hpf 0-3 RBC, Urine Auto Rfx [place] ([facility]) WBC, urine auto rfx 1 /hpf 0-3 WBC, Urine Auto Rfx [place] ([facility]) bacteria, urine auto rfx negative negative Bacteria, U rine Auto Rfx [place] ([facility]) squam epithelial cell ur aurfx 1 /hpf 0-6 Squam Epithelial Cell Ur Aurfx [place] ([facility]) hyaline cast, urine auto rfx 0 /lpf 0-1 Hyaline Cast, Urine Auto Rfx [place] ([facility]) ID Date Data Source [id number] 09/10/2020 09:16:00 AM EDT [place] ([facility]) Name Value Range Interpretation Code Description Data Sharmila rce(s) Supporting Document(s) appearance, urine rfx clear clear Appearance, Ur ine Rfx [place] ([facility]) color, urine rfx straw yellow Color, Urine Rfx [facility] [place] ([facility]) pH,urine rfx 7.0 units 5.0-9.0 pH,urine Rfx [facility] specific gravity ur auto rfx 1.002-1.035 Specif ic [place] Ur Auto Rfx [place] ([facility]) protein, urine auto rfx negative negative Protein, Uri ne Auto Rfx [place] ([facility]) glucose, urine (UA) auto rfx negative negative Glucose , Urine (UA) Auto Rfx [place] ([facility]) ketone, urine auto rfx negative negative Ketone, Urine Auto Rfx [place] ([facility]) urobilinogen, urine auto rfx 0.2 mg/dL 0.0-2.0 Urobili nogen, Urine Auto Rfx [place] ([facility]) bilirubin, urine auto rfx negative negative Bilirubin, Urine Auto Rfx [place] ([facility]) nitrite, urine auto rfx negative negative Nitrite, Uri ne Auto Rfx [place] ([facility]) WBC, urine auto rfx 1 /hpf 0-3 WBC, Urine Auto Rfx [place] ([facility]) blood, urine blood rfx 1+ negative Above high normal Blood, Urine Blood Rfx [place] ([facility]) leukocyte esterase ur auto rfx negative negative Leukocyte Esterase Ur Auto Rfx [place] ([facility]) bacteria, urine auto rfx negative negative Bacteria, U rine Auto Rfx [place] ([facility]) RBC, urine auto rfx 1 /hpf 0-3 RBC, Urine Auto Rfx [place] ([facility]) hyaline cast, urine auto rfx 0 /lpf 0-1 Hyaline Cast, Urine Auto Rfx [place] ([facility]) squam epithelial cell ur aurfx 1 /hpf 0-6 Squam Epithelial Cell Ur Aurfx [place] ([facility]) ID Date Data Source [id number] 09/10/2020 09:16:00 AM EDT [place] ([facility]) Name Value Range Interpretation Code Description Data Sharmila rce(s) Supporting Document(s) appearance, urine rfx clear clear Appearance, Ur ine Rfx [place] ([facility]) color, urine rfx straw yellow Color, Urine Rfx [facility] [place] ([facility]) pH,urine rfx 7.0 units 5.0-9.0 pH,urine Rfx [place] (No [facility]) specific gravity ur auto rfx 1.002-1.035 Specif ic [place] Ur Auto Rfx [place] ([facility]) glucose, urine (UA) auto rfx negative negative Glucose , Urine (UA) Auto Rfx [place] ([facility]) protein, urine auto rfx negative negative Protein, Uri ne Auto Rfx [place] ([facility]) bilirubin, urine auto rfx negative negative Bilirubin, Urine Auto Rfx [place] ([facility]) ketone, urine auto rfx negative negative Ketone, Urine Auto Rfx [place] ([facility]) urobilinogen, urine auto rfx 0.2 mg/dL 0.0-2.0 Urobili nogen, Urine Auto Rfx [place] ([facility]) leukocyte esterase ur auto rfx negative negative Leukocyte Esterase Ur Auto Rfx [place] ([facility]) nitrite, urine auto rfx negative negative Nitrite, Uri ne Auto Rfx [place] ([facility]) blood, urine blood rfx 1+ negative Above high normal Blood, Urine Blood Rfx [place] ([facility]) WBC, urine auto rfx 1 /hpf 0-3 WBC, Urine Auto Rfx [place] ([facility]) RBC, urine auto rfx 1 /hpf 0-3 RBC, Urine Auto Rfx [place] ([facility]) bacteria, urine auto rfx negative negative Bacteria, U rine Auto Rfx [place] ([facility]) hyaline cast, urine auto rfx 0 /lpf 0-1 Hyaline Cast, Urine Auto Rfx [place] ([facility]) squam epithelial cell ur aurfx 1 /hpf 0-6 Squam Epithelial Cell Ur Aurfx [place] ([facility]) ID Date Data Source [id number] 09/10/2020 09:16:00 AM EDT [place] ([facility]) Name Value Range Interpretation Code Description Data Sharmila rce(s) Supporting Document(s) appearance, urine rfx clear clear Appearance, Ur ine Rfx [place] ([facility]) color, urine rfx straw yellow Color, Urine Rfx [facility] [place] ([facility]) pH,urine rfx 7.0 units 5.0-9.0 pH,urine Rfx [place] (No [facility]) specific gravity ur auto rfx 1.002-1.035 Specif ic [place] Ur Auto Rfx [place] ([facility]) protein, urine auto rfx negative negative Protein, Uri ne Auto Rfx [place] ([facility]) ketone, urine auto rfx negative negative Ketone, Urine Auto Rfx [place] ([facility]) glucose, urine (UA) auto rfx negative negative Glucose , Urine (UA) Auto Rfx [place] ([facility]) bilirubin, urine auto rfx negative negative Bilirubin, Urine Auto Rfx [place] ([facility]) urobilinogen, urine auto rfx 0.2 mg/dL 0.0-2.0 Urobili nogen, Urine Auto Rfx [place] ([facility]) nitrite, urine auto rfx negative negative Nitrite, Uri ne Auto Rfx [place] ([facility]) leukocyte esterase ur auto rfx negative negative Leukocyte Esterase Ur Auto Rfx [place] ([facility]) blood, urine blood rfx 1+ negative Above high normal Blood, Urine Blood Rfx [place] ([facility]) WBC, urine auto rfx 1 /hpf 0-3 WBC, Urine Auto Rfx [place] ([facility]) bacteria, urine auto rfx negative negative Bacteria, U rine Auto Rfx [place] ([facility]) RBC, urine auto rfx 1 /hpf 0-3 RBC, Urine Auto Rfx [place] ([facility]) squam epithelial cell ur aurfx 1 /hpf 0-6 Squam Epithelial Cell Ur Aurfx [place] ([facility]) hyaline cast, urine auto rfx 0 /lpf 0-1 Hyaline Cast, Urine Auto Rfx [place] ([facility]) ID Date Data Source [id number] 09/10/2020 09:15:00 AM EDT [place] ([facility]) Name Value Range Interpretation Code Description Data Sharmila rce(s) Supporting Document(s) ID Date Data Source [id number] 09/10/2020 09:15:00 AM EDT [place] ([facility]) Name Value Range Interpretation Code Description Data Sharmila rce(s) Supporting Document(s) ID Date Data Source [id number] 09/10/2020 09:15:00 AM EDT [place] ([facility]) Name Value Range Interpretation Code Description Data Sharmila rce(s) Supporting Document(s) thyroid stimulating hormone 6.590 uIU/mL 0.358-3.740 Above high no rmal Thyroid Stimulating Hormone [place] ([facility]) ID Date Data Source [id number] 09/10/2020 09:15:00 AM EDT [place] ([facility]) Name Value Range Interpretation Code Description Data Sharmila rce(s) Supporting Document(s) thyroxine (T4) 9.2 ug/dL 4.5-12.0 Thyroxine (T4) [place] ([facility]) ID Date Data Source [id number] 09/10/2020 09:15:00 AM EDT [place] ([facility]) Name Value Range Interpretation Code Description Data Sharmila rce(s) Supporting Document(s) blood urea nitrogen 15 mg/dL 7-18 Blood Urea Nitro gen [place] ([facility]) glucose, fasting 90 mg/dL 70-100 Glucose, Fasting AT [facility] ([facility]) glomerular filtration rate > 60.0 >51 Glomerula r Filtration Rate [place] ([facility]) creatinine for GFR 0.94 mg/dL 0.55-1.30 Creatinine for GF R [place] ([facility]) sodium level 135 mEq/L 136-145 Below low normal Sodium Level [place] ([facility]) potassium serum 3.6 mEq/L 3.5-5.1 Potassium Serum [facility] ([facility]) chloride level 100 mEq/L 98-107 Chloride Level [place] ([facility]) carbon dioxide level 31 mEq/L 21-32 Carbon Dioxide Level [place] ([facility]) calcium level 9.8 mg/dL 8.5-10.1 Calcium Level [place] ( [facility]) anion gap 4 mEq/L 8-16 Below low normal Anion Gap [place] ( [facility]) ID Date Data Source [id number] 09/10/2020 09:15:00 AM EDT [place] ([facility]) Name Value Range Interpretation Code Description Data Sharmila rce(s) Supporting Document(s) AST/SGOT 35 U/L 7-37 AST/SGOT [place] ([facility]) ALT/SGPT 29 U/L 12-78 ALT/SGPT [place] ([facility]) alkaline phosphatase 94 U/L 45-117 Alkaline Phosph atase [place] ([facility]) total protein 7.8 gm/dL 6.4-8.2 Total Protein [place] ( [facility]) bilirubin,total 0.7 mg/dL 0.2-1.0 Bilirubin,total [facility] ([facility]) bilirubin,direct 0.2 mg/dL 0.0-0.2 Bilirubin,direct AT [place] ([facility]) albumin 4.4 gm/dL 3.2-5.2 Albumin [place] ([facility]) albumin/globulin ratio 1.2-2.2 Albumin/globu luis carlos Ratio [place] ([facility]) ID Date Data Source [id number] 09/10/2020 09:15:00 AM EDT [place] ([facility]) Name Value Range Interpretation Code Description Data Sharmila rce(s) Supporting Document(s) CPK creatine phosphokinase 690 U/L 26-192 Above high nor mal CPK Creatine Phosphokinase [place] ([facility]) CK-mb value mass 10.5 NG/mL <3.6 Above high normal CK-mb Value Mass [place] ([facility]) troponin I 0.02 NG/mL < 0.10 Troponin I [place] ([facility]) mb/CK relative index < or =4 mb/CK Relative Index [place] ([facility]) ID Date Data Source [id number] 09/10/2020 09:15:00 AM EDT [facility]) Name Value Range Interpretation Code Description Data Sharmila rce(s) Supporting Document(s) lactic acid sepsis protocol 0.8 mmol/L 0.4-2.0 Lactic A danie Sepsis Protocol [facility]) ID Date Data Source [id number] 09/10/2020 09:15:00 AM EDT [facility]) Name Value Range Interpretation Code Description Data Sharmila rce(s) Supporting Document(s) prothrombin time 12.8 seconds 12.5-14.3 Prothrombin Time [place] ([facility]) INR Inr [place] ([facility]) ID Date Data Source [id number] 09/10/2020 09:15:00 AM EDT [facility]) Name Value Range Interpretation Code Description Data Sharmila rce(s) Supporting Document(s) white blood count 5.3 10 4.0-10.0 White Blood Count [place] ([facility]) hemoglobin 12.8 g/dL 12.0-15.5 Hemoglobin [place] ([facility]) red blood count 3.97 10 4.00-5.40 Below low normal Red Blood Coun t [place] ([facility]) mean corpuscular volume 97.2 fL 80.0-96.0 Above high normal Mean Corpuscular Volume [place] ([facility]) hematocrit 38.6 % 36.0-47.0 Hematocrit [place] ([facility]) mean corpuscular HGB conc 33.2 g/dL 32.0-36.5 Mean Corpu scular HGB Conc [place] ([facility]) mean corpuscular hemoglobin 32.2 pg 27.0-33.0 Mean Cor puscular Hemoglobin [place] ([facility]) red cell distribution width 12.7 % 11.5-14.5 Red Cell Distribution Width [place] ([facility]) platelet count, automated 273 10 150-450 Platelet C ount, Automated [place] ([facility]) neutrophils % 67.0 % 36.0-66.0 Above high normal Neutrophils % A [place] ([facility]) lymph % 20.9 % 24.0-44.0 Below low normal Lymph % [place] ( [facility]) mono % 9.4 % 2.0-8.0 Above high normal [place] % [place] ([facility]) eos % 1.3 % 0.0-3.0 Eos % [place] ([facility]) baso % 0.8 % 0.0-1.0 Baso % [place] ([facility]) immature granulocyte % 0.6 % 0-3.0 Immature Gran ulocyte % [place] ([facility]) nucleated red blood cell % 0.0 % 0-0 Nucleated Red Blood Cell % [place] ([facility]) lymph # 1.1 10 1.5-5.0 Below low normal Lymph # [place] ( [facility]) neutrophils # 3.6 10 1.5-8.5 Neutrophils # [place] ( [facility]) mono # 0.5 10 0.0-0.8 [place] # [place] ([facility]) eos # 0.1 10 0.0-0.5 Eos # [place] ([facility]) baso # 0.0 10 0.0-0.2 Baso # [place] ([facility]) ID Date Data Source [id number] 09/10/2020 09:15:00 AM EDT [place] ([facility]) Name Value Range Interpretation Code Description Data Sharmila rce(s) Supporting Document(s) ID Date Data Source [id number] 09/10/2020 09:15:00 AM EDT [place] ([facility]) Name Value Range Interpretation Code Description Data Sharmila rce(s) Supporting Document(s) ID Date Data Source [id number] 09/10/2020 09:15:00 AM EDT [place] ([facility]) Name Value Range Interpretation Code Description Data Sharmila rce(s) Supporting Document(s) thyroid stimulating hormone 6.590 uIU/mL 0.358-3.740 Above high no rmal Thyroid Stimulating Hormone [place] ([facility]) ID Date Data Source [id number] 09/10/2020 09:15:00 AM EDT [facility]) Name Value Range Interpretation Code Description Data Sharmila rce(s) Supporting Document(s) thyroxine (T4) 9.2 ug/dL 4.5-12.0 Thyroxine (T4) [place] ([facility]) ID Date Data Source [id number] 09/10/2020 09:15:00 AM EDT [facility]) Name Value Range Interpretation Code Description Data Sharmila rce(s) Supporting Document(s) glucose, fasting 90 mg/dL 70-100 Glucose, Fasting AT [facility] ([facility]) blood urea nitrogen 15 mg/dL 7-18 Blood Urea Nitro gen [place] ([facility]) creatinine for GFR 0.94 mg/dL 0.55-1.30 Creatinine for GF R [place] ([facility]) glomerular filtration rate > 60.0 >51 Glomerula r Filtration Rate [place] ([facility]) potassium serum 3.6 mEq/L 3.5-5.1 Potassium Serum [facility] ([facility]) sodium level 135 mEq/L 136-145 Below low normal Sodium Level [facility] [place] ([facility]) anion gap 4 mEq/L 8-16 Below low normal Anion Gap [place] ( [facility]) carbon dioxide level 31 mEq/L 21-32 Carbon Dioxide Level [place] ([facility]) chloride level 100 mEq/L 98-107 Chloride Level [place] ([facility]) calcium level 9.8 mg/dL 8.5-10.1 Calcium Level [place] ( [facility]) ID Date Data Source [id number] 09/10/2020 09:15:00 AM EDT [place] ([facility]) Name Value Range Interpretation Code Description Data Sharmila rce(s) Supporting Document(s) AST/SGOT 35 U/L 7-37 AST/SGOT [place] ([facility]) ALT/SGPT 29 U/L 12-78 ALT/SGPT [place] ([facility]) alkaline phosphatase 94 U/L 45-117 Alkaline Phosph atase [place] ([facility]) bilirubin,direct 0.2 mg/dL 0.0-0.2 Bilirubin,direct AT [facility] ([facility]) bilirubin,total 0.7 mg/dL 0.2-1.0 Bilirubin,total [facility] ([facility]) albumin 4.4 gm/dL 3.2-5.2 Albumin [place] ([facility]) albumin/globulin ratio 1.2-2.2 Albumin/globu luis carlos Ratio [place] ([facility]) total protein 7.8 gm/dL 6.4-8.2 Total Protein [place] ( [facility]) ID Date Data Source [id number] 09/10/2020 09:15:00 AM EDT [place] ([facility]) Name Value Range Interpretation Code Description Data Sharmila rce(s) Supporting Document(s) CPK creatine phosphokinase 690 U/L 26-192 Above high nor mal CPK Creatine Phosphokinase [place] ([facility]) CK-mb value mass 10.5 NG/mL <3.6 Above high normal CK-mb Value Mass [place] ([facility]) troponin I 0.02 NG/mL < 0.10 Troponin I [place] ([facility]) mb/CK relative index < or =4 mb/CK Relative Index [place] ([facility]) ID Date Data Source [id number] 09/10/2020 09:15:00 AM EDT [facility]) Name Value Range Interpretation Code Description Data Sharmila rce(s) Supporting Document(s) lactic acid sepsis protocol 0.8 mmol/L 0.4-2.0 Lactic A danie Sepsis Protocol [facility]) ID Date Data Source [id number] 09/10/2020 09:15:00 AM EDT [facility]) Name Value Range Interpretation Code Description Data Sharmila rce(s) Supporting Document(s) INR Inr [place] ([facility]) prothrombin time 12.8 seconds 12.5-14.3 Prothrombin Time [place] ([facility]) ID Date Data Source [id number] 09/10/2020 09:15:00 AM EDT [facility]) Name Value Range Interpretation Code Description Data Sharmila rce(s) Supporting Document(s) white blood count 5.3 10 4.0-10.0 White Blood Count [place] ([facility]) hemoglobin 12.8 g/dL 12.0-15.5 Hemoglobin [place] ([facility]) red blood count 3.97 10 4.00-5.40 Below low normal Red Blood Coun t [place] ([facility]) hematocrit 38.6 % 36.0-47.0 Hematocrit [place] ([facility]) mean corpuscular volume 97.2 fL 80.0-96.0 Above high normal Mean Corpuscular Volume [place] ([facility]) mean corpuscular hemoglobin 32.2 pg 27.0-33.0 Mean Cor puscular Hemoglobin [place] ([facility]) mean corpuscular HGB conc 33.2 g/dL 32.0-36.5 Mean Corpu scular HGB Conc [place] ([facility]) red cell distribution width 12.7 % 11.5-14.5 Red Cell Distribution Width [place] ([facility]) neutrophils % 67.0 % 36.0-66.0 Above high normal Neutrophils % A [facility] ([facility]) platelet count, automated 273 10 150-450 Platelet C ount, Automated [place] ([facility]) lymph % 20.9 % 24.0-44.0 Below low normal Lymph % [place] ( [facility]) mono % 9.4 % 2.0-8.0 Above high normal [place] % [place] ([facility]) eos % 1.3 % 0.0-3.0 Eos % [place] ([facility]) baso % 0.8 % 0.0-1.0 Baso % [place] ([facility]) immature granulocyte % 0.6 % 0-3.0 Immature Gran ulocyte % [place] ([facility]) nucleated red blood cell % 0.0 % 0-0 Nucleated Red Blood Cell % [place] ([facility]) neutrophils # 3.6 10 1.5-8.5 Neutrophils # [place] ( [facility]) mono # 0.5 10 0.0-0.8 Baker # [facility] ([facility]) lymph # 1.1 10 1.5-5.0 Below low normal Lymph # [place] ( [facility]) eos # 0.1 10 0.0-0.5 Eos # [facility] ([facility]) baso # 0.0 10 0.0-0.2 Baso # [place] ([facility]) ID Date Data Source [id number] 09/10/2020 09:15:00 AM EDT [place] ([facility]) Name Value Range Interpretation Code Description Data Sharmila rce(s) Supporting Document(s) ID Date Data Source [id number] 09/10/2020 09:15:00 AM EDT [facility]) Name Value Range Interpretation Code Description Data Sharmila rce(s) Supporting Document(s) ID Date Data Source [id number] 09/10/2020 09:15:00 AM EDT [facility]) Name Value Range Interpretation Code Description Data Sharmila rce(s) Supporting Document(s) thyroid stimulating hormone 6.590 uIU/mL 0.358-3.740 Above high no rmal Thyroid Stimulating Hormone [facility]) ID Date Data Source [id number] 09/10/2020 09:15:00 AM EDT [facility]) Name Value Range Interpretation Code Description Data Sharmila rce(s) Supporting Document(s) thyroxine (T4) 9.2 ug/dL 4.5-12.0 Thyroxine (T4) [facility]) ID Date Data Source [id number] 09/10/2020 09:15:00 AM EDT [facility]) Name Value Range Interpretation Code Description Data Sharmial rce(s) Supporting Document(s) blood urea nitrogen 15 mg/dL 7-18 Blood Urea Nitro gen [place] ([facility]) glucose, fasting 90 mg/dL 70-100 Glucose, Fasting AT [facility] ([facility]) glomerular filtration rate > 60.0 >51 Glomerula r Filtration Rate [place] ([facility]) creatinine for GFR 0.94 mg/dL 0.55-1.30 Creatinine for GF R [place] ([facility]) sodium level 135 mEq/L 136-145 Below low normal Sodium Level [facility] ([facility] [facility] potassium serum 3.6 mEq/L 3.5-5.1 Potassium [facility] chloride level 100 mEq/L 98-107 Chloride Level [facility]) carbon dioxide level 31 mEq/L 21-32 Carbon Dioxide Level [place] ([facility]) calcium level 9.8 mg/dL 8.5-10.1 Calcium Level [facility] ( [facility]) anion gap 4 mEq/L 8-16 Below low normal Anion Gap [facility] ( [facility]) ID Date Data Source [id number] 09/10/2020 09:15:00 AM EDT [place] ([facility]) Name Value Range Interpretation Code Description Data Sharmila rce(s) Supporting Document(s) AST/SGOT 35 U/L 7-37 AST/SGOT [facility] ([facility]) ALT/SGPT 29 U/L 12-78 ALT/SGPT [facility] ([facility]) alkaline phosphatase 94 U/L 45-117 Alkaline Phosph atase [facility] ([facility]) bilirubin,total 0.7 mg/dL 0.2-1.0 Bilirubin,total [facility] ([facility]) bilirubin,direct 0.2 mg/dL 0.0-0.2 Bilirubin,direct AT [facility] ([facility]) albumin 4.4 gm/dL 3.2-5.2 Albumin [place] ([facility]) albumin/globulin ratio 1.2-2.2 Albumin/globu luis carlos Ratio [facility] ([facility]) total protein 7.8 gm/dL 6.4-8.2 Total Protein [place] ( [facility]) ID Date Data Source [id number] 09/10/2020 09:15:00 AM EDT [place] ([facility]) Name Value Range Interpretation Code Description Data Sharmila rce(s) Supporting Document(s) CPK creatine phosphokinase 690 U/L 26-192 Above high nor mal CPK Creatine Phosphokinase [facility] ([facility]) CK-mb value mass 10.5 NG/mL <3.6 Above high normal CK-mb Value Mass [place] ([facility]) troponin I 0.02 NG/mL < 0.10 Troponin I [place] ([facility]) mb/CK relative index < or =4 mb/CK Relative Index [facility] ([facility]) ID Date Data Source [id number] 09/10/2020 09:15:00 AM EDT [place] ([facility]) Name Value Range Interpretation Code Description Data Sharmila rce(s) Supporting Document(s) lactic acid sepsis protocol 0.8 mmol/L 0.4-2.0 Lactic A danie Sepsis Protocol [facility] ([facility]) ID Date Data Source [id number] 09/10/2020 09:15:00 AM EDT [place] ([facility]) Name Value Range Interpretation Code Description Data Sharmila rce(s) Supporting Document(s) prothrombin time 12.8 seconds 12.5-14.3 Prothrombin Time [place] ([facility]) INR Inr [place] ([facility]) ID Date Data Source [id number] 09/10/2020 09:15:00 AM EDT [place] ([facility]) Name Value Range Interpretation Code Description Data Sharmila rce(s) Supporting Document(s) white blood count 5.3 10 4.0-10.0 White Blood Count [place] ([facility]) red blood count 3.97 10 4.00-5.40 Below low normal Red Blood Coun t [place] ([facility]) hemoglobin 12.8 g/dL 12.0-15.5 Hemoglobin [place] ([facility]) hematocrit 38.6 % 36.0-47.0 Hematocrit [place] ([facility]) mean corpuscular volume 97.2 fL 80.0-96.0 Above high normal Mean Corpuscular Volume [place] ([facility]) red cell distribution width 12.7 % 11.5-14.5 Red Cell Distribution Width [place] ([facility]) mean corpuscular hemoglobin 32.2 pg 27.0-33.0 Mean Cor puscular Hemoglobin [place] ([facility]) mean corpuscular HGB conc 33.2 g/dL 32.0-36.5 Mean Corpu scular HGB Conc [place] ([facility]) platelet count, automated 273 10 150-450 Platelet C ount, Automated [place] ([facility]) neutrophils % 67.0 % 36.0-66.0 Above high normal Neutrophils % A [facility] ([facility]) mono % 9.4 % 2.0-8.0 Above high normal [place] % [place] ([facility]) lymph % 20.9 % 24.0-44.0 Below low normal Lymph % [place] ( [facility]) eos % 1.3 % 0.0-3.0 Eos % [place] ([facility]) baso % 0.8 % 0.0-1.0 Baso % [place] ([facility]) nucleated red blood cell % 0.0 % 0-0 Nucleated Red Blood Cell % [place] ([facility]) immature granulocyte % 0.6 % 0-3.0 Immature Gran ulocyte % [place] ([facility]) neutrophils # 3.6 10 1.5-8.5 Neutrophils # [place] ( [facility]) lymph # 1.1 10 1.5-5.0 Below low normal Lymph # [place] ( [facility]) eos # 0.1 10 0.0-0.5 Eos # [place] ([facility]) mono # 0.5 10 0.0-0.8 Baker # [place] ([facility]) baso # 0.0 10 0.0-0.2 Baso # [place] ([facility]) ID Date Data Source [id number] 09/10/2020 09:15:00 AM EDT [facility] Name Value Range Interpretation Code Description Data Sharmila rce(s) Supporting Document(s) SARS-CoV-2 (COVID 19) NEGATIVE - SARS-CoV-2 (COVID19) [facility] This lab was ordered by [facility] a nd reported by [facility]. ID Date Data Source [id number] 09/10/2020 09:15:00 AM EDT [place] ([facility]) Name Value Range Interpretation Code Description Data Sharmila rce(s) Supporting Document(s) ID Date Data Source [id number] 09/10/2020 09:15:00 AM EDT [facility]) Name Value Range Interpretation Code Description Data Sharmila rce(s) Supporting Document(s) ID Date Data Source [id number] 09/10/2020 09:15:00 AM EDT [facility]) Name Value Range Interpretation Code Description Data Sharmila rce(s) Supporting Document(s) thyroid stimulating hormone 6.590 uIU/mL 0.358-3.740 Above high no rmal Thyroid Stimulating Hormone [facility]) ID Date Data Source [id number] 09/10/2020 09:15:00 AM EDT [facility]) Name Value Range Interpretation Code Description Data Sharmila rce(s) Supporting Document(s) thyroxine (T4) 9.2 ug/dL 4.5-12.0 Thyroxine (T4) [place] ([facility]) ID Date Data Source [id number] 09/10/2020 09:15:00 AM EDT [facility]) Name Value Range Interpretation Code Description Data Sharmila rce(s) Supporting Document(s) blood urea nitrogen 15 mg/dL 7-18 Blood Urea Nitro gen [place] ([facility]) glucose, fasting 90 mg/dL 70-100 Glucose, Fasting AT [facility] ([facility]) creatinine for GFR 0.94 mg/dL 0.55-1.30 Creatinine for GF R [place] ([facility]) glomerular filtration rate > 60.0 >51 Glomerula r Filtration Rate [place] ([facility]) potassium serum 3.6 mEq/L 3.5-5.1 Potassium Serum [facility] ([facility]) sodium level 135 mEq/L 136-145 Below low normal Sodium Level [facility] ([facility]) chloride level 100 mEq/L 98-107 Chloride Level [place] ([facility]) carbon dioxide level 31 mEq/L 21-32 Carbon Dioxide Level [place] ([facility]) anion gap 4 mEq/L 8-16 Below low normal Anion Gap [place] ( [facility]) calcium level 9.8 mg/dL 8.5-10.1 Calcium Level [place] ( [facility]) ID Date Data Source [id number] 09/10/2020 09:15:00 AM EDT [place] ([facility]) Name Value Range Interpretation Code Description Data Sharmila rce(s) Supporting Document(s) ALT/SGPT 29 U/L 12-78 ALT/SGPT [place] ([facility]) AST/SGOT 35 U/L 7-37 AST/SGOT [place] ([facility]) alkaline phosphatase 94 U/L 45-117 Alkaline Phosph atase [place] ([facility]) bilirubin,total 0.7 mg/dL 0.2-1.0 Bilirubin,total [facility] ([facility]) bilirubin,direct 0.2 mg/dL 0.0-0.2 Bilirubin,direct AT [facility] ([facility]) albumin 4.4 gm/dL 3.2-5.2 Albumin [place] ([facility]) albumin/globulin ratio 1.2-2.2 Albumin/globu luis carlos Ratio [facility] ([facility]) total protein 7.8 gm/dL 6.4-8.2 Total Protein [place] ( [facility]) ID Date Data Source [id number] 09/10/2020 09:15:00 AM EDT [place] ([facility]) Name Value Range Interpretation Code Description Data Sharmila rce(s) Supporting Document(s) CPK creatine phosphokinase 690 U/L 26-192 Above high nor mal CPK Creatine Phosphokinase [place] ([facility]) mb/CK relative index < or =4 mb/CK Relative Index [facility] ([facility]) CK-mb value mass 10.5 NG/mL <3.6 Above high normal CK-mb Value Mass [place] ([facility]) troponin I 0.02 NG/mL < 0.10 Troponin I [place] ([facility]) ID Date Data Source [id number] 09/10/2020 09:15:00 AM EDT [place] ([facility]) Name Value Range Interpretation Code Description Data Sharmila rce(s) Supporting Document(s) lactic acid sepsis protocol 0.8 mmol/L 0.4-2.0 Lactic A danie Sepsis Protocol [facility] ([facility]) ID Date Data Source [id number] 09/10/2020 09:15:00 AM EDT [facility]) Name Value Range Interpretation Code Description Data Sharmila rce(s) Supporting Document(s) prothrombin time 12.8 seconds 12.5-14.3 Prothrombin Time [place] ([facility]) INR Inr [place] ([facility]) ID Date Data Source [id number] 09/10/2020 09:15:00 AM EDT [place] ([facility]) Name Value Range Interpretation Code Description Data Sharmila rce(s) Supporting Document(s) white blood count 5.3 10 4.0-10.0 White Blood Count [place] ([facility]) red blood count 3.97 10 4.00-5.40 Below low normal Red Blood Coun t [place] ([facility]) hemoglobin 12.8 g/dL 12.0-15.5 Hemoglobin [place] ([facility]) mean corpuscular volume 97.2 fL 80.0-96.0 Above high normal Mean Corpuscular Volume [facility] ([facility]) hematocrit 38.6 % 36.0-47.0 Hematocrit [place] ([facility]) mean corpuscular hemoglobin 32.2 pg 27.0-33.0 Mean Cor puscular Hemoglobin [facility] ([facility]) mean corpuscular HGB conc 33.2 g/dL 32.0-36.5 Mean Corpu scular HGB Conc [facility] ([facility]) red cell distribution width 12.7 % 11.5-14.5 Red Cell Distribution Width [place] ([facility]) platelet count, automated 273 10 150-450 Platelet C ount, Automated [place] ([facility]) neutrophils % 67.0 % 36.0-66.0 Above high normal Neutrophils % [facility] ([facility]) lymph % 20.9 % 24.0-44.0 Below low normal Lymph % [place] ( [facility]) mono % 9.4 % 2.0-8.0 Above high normal [place] % [place] ([facility]) baso % 0.8 % 0.0-1.0 Baso % [place] ([facility]) eos % 1.3 % 0.0-3.0 Eos % [place] ([facility]) immature granulocyte % 0.6 % 0-3.0 Immature Gran ulocyte % [place] ([facility]) nucleated red blood cell % 0.0 % 0-0 Nucleated Red Blood Cell % [place] ([facility]) neutrophils # 3.6 10 1.5-8.5 Neutrophils # [place] ( [facility]) lymph # 1.1 10 1.5-5.0 Below low normal Lymph # [place] ( [facility]) mono # 0.5 10 0.0-0.8 Baker # [facility] ([facility]) baso # 0.0 10 0.0-0.2 Baso # [place] ([facility]) eos # 0.1 10 0.0-0.5 Eos # [place] ([facility]) ID Date Data Source [id number] 09/10/2020 09:15:00 AM EDT [place] ([facility]) Name Value Range Interpretation Code Description Data Sharmila rce(s) Supporting Document(s) ID Date Data Source [id number] 09/10/2020 09:15:00 AM EDT [place] ([facility]) Name Value Range Interpretation Code Description Data Sharmila rce(s) Supporting Document(s) ID Date Data Source [id number] 09/10/2020 09:15:00 AM EDT [facility]) Name Value Range Interpretation Code Description Data Sharmila rce(s) Supporting Document(s) thyroid stimulating hormone 6.590 uIU/mL 0.358-3.740 Above high no rmal Thyroid Stimulating Hormone [facility]) ID Date Data Source [id number] 09/10/2020 09:15:00 AM EDT [facility]) Name Value Range Interpretation Code Description Data Sharmila rce(s) Supporting Document(s) thyroxine (T4) 9.2 ug/dL 4.5-12.0 Thyroxine (T4) [facility]) ID Date Data Source [id number] 09/10/2020 09:15:00 AM EDT [facility]) Name Value Range Interpretation Code Description Data Sharmila rce(s) Supporting Document(s) blood urea nitrogen 15 mg/dL 7-18 Blood Urea Nitro gen [place] ([facility]) glucose, fasting 90 mg/dL 70-100 Glucose, Fasting AT [facility]) glomerular filtration rate > 60.0 >51 Glomerula r Filtration Rate [place] ([facility]) creatinine for GFR 0.94 mg/dL 0.55-1.30 Creatinine for GF R [place] ([facility]) chloride level 100 mEq/L 98-107 Chloride Level [place] ([facility]) sodium level 135 mEq/L 136-145 Below low normal Sodium Level [facility] ([facility]) potassium serum 3.6 mEq/L 3.5-5.1 Potassium Serum [facility] ([facility]) anion gap 4 mEq/L 8-16 Below low normal Anion Gap [facility] ( [facility]) carbon dioxide level 31 mEq/L 21-32 Carbon Dioxide Level [facility] ([facility]) calcium level 9.8 mg/dL 8.5-10.1 Calcium Level [facility] ( [facility]) ID Date Data Source [id number] 09/10/2020 09:15:00 AM EDT [place] ([facility]) Name Value Range Interpretation Code Description Data Sharmila rce(s) Supporting Document(s) ALT/SGPT 29 U/L 12-78 ALT/SGPT [facility] ([facility]) AST/SGOT 35 U/L 7-37 AST/SGOT [place] ([facility]) bilirubin,total 0.7 mg/dL 0.2-1.0 Bilirubin,total [facility] ([facility]) alkaline phosphatase 94 U/L 45-117 Alkaline Phosph atase [place] ([facility]) bilirubin,direct 0.2 mg/dL 0.0-0.2 Bilirubin,direct AT [facility] ([facility]) total protein 7.8 gm/dL 6.4-8.2 Total Protein [place] ( [facility]) albumin 4.4 gm/dL 3.2-5.2 Albumin [facility] ([facility]) albumin/globulin ratio 1.2-2.2 Albumin/globu luis carlos Ratio [facility] ([facility]) ID Date Data Source [id number] 09/10/2020 09:15:00 AM EDT [place] ([facility]) Name Value Range Interpretation Code Description Data Sharmila rce(s) Supporting Document(s) CPK creatine phosphokinase 690 U/L 26-192 Above high nor mal CPK Creatine Phosphokinase [place] ([facility]) mb/CK relative index < or =4 mb/CK Relative Index [facility] ([facility]) CK-mb value mass 10.5 NG/mL <3.6 Above high normal CK-mb Value Mass [place] ([facility]) troponin I 0.02 NG/mL < 0.10 Troponin I [facility] ([facility]) ID Date Data Source [id number] 09/10/2020 09:15:00 AM EDT [place] ([facility]) Name Value Range Interpretation Code Description Data Sharmila rce(s) Supporting Document(s) lactic acid sepsis protocol 0.8 mmol/L 0.4-2.0 Lactic A danie Sepsis Protocol [facility] ([facility]) ID Date Data Source [id number] 09/10/2020 09:15:00 AM EDT [place] ([facility]) Name Value Range Interpretation Code Description Data Sharmila rce(s) Supporting Document(s) prothrombin time 12.8 seconds 12.5-14.3 Prothrombin Time [place] ([facility]) INR Inr [facility] ([facility]) ID Date Data Source [id number] 09/10/2020 09:15:00 AM EDT [facility]) Name Value Range Interpretation Code Description Data Sharmila rce(s) Supporting Document(s) white blood count 5.3 10 4.0-10.0 White Blood Count [place] ([facility]) red blood count 3.97 10 4.00-5.40 Below low normal Red Blood Coun t [place] ([facility]) hematocrit 38.6 % 36.0-47.0 Hematocrit [place] ([facility]) hemoglobin 12.8 g/dL 12.0-15.5 Hemoglobin [place] ([facility]) mean corpuscular hemoglobin 32.2 pg 27.0-33.0 Mean Cor puscular Hemoglobin [place] ([facility]) mean corpuscular volume 97.2 fL 80.0-96.0 Above high normal Mean Corpuscular Volume [place] ([facility]) mean corpuscular HGB conc 33.2 g/dL 32.0-36.5 Mean Corpu scular HGB Conc [place] ([facility]) red cell distribution width 12.7 % 11.5-14.5 Red Cell Distribution Width [place] ([facility]) platelet count, automated 273 10 150-450 [facility] C [facility]unt, [facility] neutrophils % 67.0 % 36.0-66.0 Above high normal Neutrophils % A [facility] ([facility]) lymph % 20.9 % 24.0-44.0 Below low normal Lymph % [place] ( [facility]) mono % 9.4 % 2.0-8.0 Above high normal [place] % [place] ([facility]) eos % 1.3 % 0.0-3.0 Eos % [facility] ([facility]) baso % 0.8 % 0.0-1.0 Baso % [place] ([facility]) immature granulocyte % 0.6 % 0-3.0 Immature Gran ulocyte % [place] ([facility]) nucleated red blood cell % 0.0 % 0-0 Nucleated Red Blood Cell % [place] ([facility]) neutrophils # 3.6 10 1.5-8.5 Neutrophils # [place] ( [facility]) lymph # 1.1 10 1.5-5.0 Below low normal Lymph # [place] ( [facility]) eos # 0.1 10 0.0-0.5 Eos # [facility] ([facility]) mono # 0.5 10 0.0-0.8 Baker # [facility] ([facility]) baso # 0.0 10 0.0-0.2 Baso # [facility] ([facility]) ID Date Data Source [id number] 08/04/2020 02:00:00 PM EST [place] ([facility]) Name Value Range Interpretation Code Description Data Sharmila rce(s) Supporting Document(s) total 25(oh) vitamin D 21.1 NG/mL 30.0-100.0 Below low normal T otal 25(Oh) Vitamin D [place] ([facility]) ID Date Data Source [id number] 08/04/2020 02:00:00 PM EST [place] ([facility]) Name Value Range Interpretation Code Description Data Sharmila rce(s) Supporting Document(s) magnesium level 1.8 mg/dL 1.8-2.4 Magnesium Level [facility] NA ([facility]) ID Date Data Source [id number] 08/04/2020 02:00:00 PM EST [place] ([facility]) Name Value Range Interpretation Code Description Data Sharmila rce(s) Supporting Document(s) cholesterol level 221 mg/dL <200 Above high normal Cholesterol Level [facility] ([facility]) HDL cholesterol 81 mg/dL >40 HDL Cholesterol [facility] ([facility]) triglycerides level 116 mg/dL <150 Triglycerides Le tres [place] ([facility]) cholesterol risk ratio <5 Cholesterol R isk Ratio [facility] ([facility]) Cholesterol in LDL [Mass/volume] in Serum or Plasma 117 mg/dL <100 Above high normal LDL Cholesterol [facility] ([facility]) non-HDL-C 140 mg/dL Non-hdl-c [facility] ([facility]) ID Date Data Source [id number] 08/04/2020 02:00:00 PM EST [place] ([facility]) Name Value Range Interpretation Code Description Data Sharmila rce(s) Supporting Document(s) blood urea nitrogen 22 mg/dL 7-18 Above high normal Blood Ure a Nitrogen [facility] ([facility]) glucose, fasting 103 mg/dL 70-100 Above high normal Glucose, Fas ting [facility] ([facility]) sodium level 141 mEq/L 136-145 Sodium Level [facility] ([facility]) creatinine for GFR 0.97 mg/dL 0.55-1.30 Creatinine for GF R [place] ([facility]) glomerular filtration rate > 60.0 >51 Glomerula r Filtration Rate [facility] ([facility]) chloride level 109 mEq/L 98-107 Above high normal Chloride Level [facility] ([facility]) carbon dioxide level 29 mEq/L 21-32 Carbon Dioxide Level [facility] ([facility]) potassium serum 4.5 mEq/L 3.5-5.1 Potassium Serum [facility] ([facility]) anion gap 3 mEq/L 8-16 Below low normal Anion Gap [facility] ( [facility]) calcium level 8.7 mg/dL 8.5-10.1 Calcium Level [facility] ( [facility]) AST/SGOT 11 U/L 7-37 AST/SGOT [facility] ([facility]) alkaline phosphatase 65 U/L 45-117 Alkaline Phosph atase [place] ([facility]) bilirubin,total 0.2 mg/dL 0.2-1.0 Bilirubin,total [facility] NA ([facility]) ALT/SGPT 21 U/L 12-78 ALT/SGPT [facility] ([facility]) albumin/globulin ratio 1.2-2.2 Albumin/globu luis carlos Ratio [facility] ([facility]) total protein 6.4 gm/dL 6.4-8.2 Total Protein [facility] ( [facility]) albumin 3.8 gm/dL 3.2-5.2 Albumin [facility] ([facility]) ID Date Data Source [id number] 08/04/2020 02:00:00 PM EST [place] ([facility]) Name Value Range Interpretation Code Description Data Sharmila rce(s) Supporting Document(s) red blood count 3.73 10 4.00-5.40 Below low normal Red Blood Coun t [place] ([facility]) white blood count 4.0 10 4.0-10.0 White Blood Count [facility] ([facility]) mean corpuscular volume 100.3 fL 80.0-96.0 Above high normal Mean Corpuscular Volume [facility] ([facility]) hemoglobin 12.2 g/dL 12.0-15.5 Hemoglobin [facility] ([facility]) hematocrit 37.4 % 36.0-47.0 Hematocrit [facility] ([facility]) mean corpuscular HGB conc 32.6 g/dL 32.0-36.5 Mean Corpu scular HGB Conc [facility] ([facility]) mean corpuscular hemoglobin 32.7 pg 27.0-33.0 Mean Cor puscular Hemoglobin [facility] ([facility]) platelet count, automated 225 10 150-450 Platelet C ount, Automated [place] ([facility]) red cell distribution width 12.4 % 11.5-14.5 Red Cell Distribution Width [facility] ([facility]) neutrophils % 64.3 % 36.0-66.0 Neutrophils % [facility] ( [facility]) mono % 8.2 % 2.0-8.0 Above high normal [place] % [facility] ([facility]) eos % 1.5 % 0.0-3.0 Eos % [facility] ([facility]) lymph % 24.8 % 24.0-44.0 Lymph % [place] ([facility]) immature granulocyte % 0.7 % 0-3.0 Immature Gran ulocyte % [place] ([facility]) nucleated red blood cell % 0.0 % 0-0 Nucleated Red Blood Cell % [place] ([facility]) baso % 0.5 % 0.0-1.0 Baso % [place] ([facility]) lymph # 1.0 10 1.5-5.0 Below low normal Lymph # [place] ( [facility]) neutrophils # 2.6 10 1.5-8.5 Neutrophils # LASHONDA ( [facility]) mono # 0.3 10 0.0-0.8 Baker # LASHONDA ([facility]) eos # 0.1 10 0.0-0.5 Eos # LASHONDA ([facility]) baso # 0.0 10 0.0-0.2 Baso # LASHONDA ([facility]) ID Date Data Source [id number] 08/04/2020 02:00:00 PM EST LASHONDA ([facility]) Name Value Range Interpretation Code Description Data Sharmila rce(s) Supporting Document(s) total 25(oh) vitamin D 21.1 NG/mL 30.0-100.0 Below low normal T otal 25(Oh) Vitamin D [place] ([facility]) ID Date Data Source [id number] 08/04/2020 02:00:00 PM EST LASHONDA ([facility]) Name Value Range Interpretation Code Description Data Sharmila rce(s) Supporting Document(s) magnesium level 1.8 mg/dL 1.8-2.4 Magnesium Level ATHE NA ([facility]) ID Date Data Source [id number] 08/04/2020 02:00:00 PM EST LASHONDA ([facility]) Name Value Range Interpretation Code Description Data Sharmila rce(s) Supporting Document(s) cholesterol level 221 mg/dL <200 Above high normal Cholesterol Level LASHONDA ([facility]) triglycerides level 116 mg/dL <150 Triglycerides Le tres LASHONDA ([facility]) Cholesterol in LDL [Mass/volume] in Serum or Plasma 117 mg/dL <100 Above high normal LDL Cholesterol L[facility]ONDA ([facility]) HDL cholesterol 81 mg/dL >40 HDL Cholesterol ATHE NA ([facility]) non-HDL-C 140 mg/dL Non-hdl-c LASHONDA ([facility]) cholesterol risk ratio <5 Cholesterol R isk Ratio LASHONDA ([facility]) ID Date Data Source [id number] 08/04/2020 02:00:00 PM EST LASHONDA ([facility]) Name Value Range Interpretation Code Description Data Sharmila rce(s) Supporting Document(s) glucose, fasting 103 mg/dL 70-100 Above high normal Glucose, Fas ting LASHONDA ([facility]) blood urea nitrogen 22 mg/dL 7-18 Above high normal Blood Ure a Nitrogen LASHONDA ([facility]) creatinine for GFR 0.97 mg/dL 0.55-1.30 Creatinine for GF R LASHONDA ([facility]) potassium serum 4.5 mEq/L 3.5-5.1 Potassium Serum ATHE NA ([facility]) glomerular filtration rate > 60.0 >51 Glomerula r Filtration Rate LASHONDA ([facility]) sodium level 141 mEq/L 136-145 Sodium Level LASHONDA ([facility]) carbon dioxide level 29 mEq/L 21-32 Carbon Dioxide Level LASHONDA ([facility]) chloride level 109 mEq/L 98-107 Above high normal Chloride Level LASHONDA ([facility]) anion gap 3 mEq/L 8-16 Below low normal Anion Gap LASHONDA ( [facility]) AST/SGOT 11 U/L 7-37 AST/SGOT LASHONDA ([facility]) calcium level 8.7 mg/dL 8.5-10.1 Calcium Level LASHONDA ( [facility]) ALT/SGPT 21 U/L 12-78 ALT/SGPT LASHONDA ([facility]) alkaline phosphatase 65 U/L 45-117 Alkaline Phosph atase LASHONDA ([facility]) total protein 6.4 gm/dL 6.4-8.2 Total Protein LASHONDA ( [facility]) bilirubin,total 0.2 mg/dL 0.2-1.0 Bilirubin,total ATHE ([facility]) albumin/globulin ratio 1.2-2.2 Albumin/globu luis carlos Ratio LASHONDA ([facility]) albumin 3.8 gm/dL 3.2-5.2 Albumin LASHONDA ([facility]) ID Date Data Source [id number] 08/04/2020 02:00:00 PM EST LASHONDA ([facility]) Name Value Range Interpretation Code Description Data Sharmila rce(s) Supporting Document(s) white blood count 4.0 10 4.0-10.0 White Blood Count LASHONDA ([facility]) red blood count 3.73 10 4.00-5.40 Below low normal Red Blood Coun t LASHONDA ([facility]) hemoglobin 12.2 g/dL 12.0-15.5 Hemoglobin LASHONDA ([facility]) hematocrit 37.4 % 36.0-47.0 Hematocrit LASHONDA ([facility]) mean corpuscular volume 100.3 fL 80.0-96.0 Above high normal Mean Corpuscular Volume LASHONDA ([facility]) mean corpuscular HGB conc 32.6 g/dL 32.0-36.5 Mean Corpu scular HGB Conc LASHONDA ([facility]) mean corpuscular hemoglobin 32.7 pg 27.0-33.0 Mean Cor puscular Hemoglobin LASHONDA ([facility]) platelet count, automated 225 10 150-450 Platelet C ount, Automated LASHONDA ([facility]) red cell distribution width 12.4 % 11.5-14.5 Red Cell Distribution Width LASHONDA ([facility]) neutrophils % 64.3 % 36.0-66.0 Neutrophils % LASHONDA ( [facility]) lymph % 24.8 % 24.0-44.0 Lymph % LASHONDA ([facility]) mono % 8.2 % 2.0-8.0 Above high normal Baker % [place] ([facility]) eos % 1.5 % 0.0-3.0 Eos % [place] ([facility]) baso % 0.5 % 0.0-1.0 Baso % [place] ([facility]) immature granulocyte % 0.7 % 0-3.0 Immature Gran ulocyte % [place] ([facility]) nucleated red blood cell % 0.0 % 0-0 Nucleated Red Blood Cell % [place] ([facility]) neutrophils # 2.6 10 1.5-8.5 Neutrophils # LASHONDA ( [facility]) mono # 0.3 10 0.0-0.8 Baker # LASHONDA ([facility]) eos # 0.1 10 0.0-0.5 Eos # [place] ([facility]) lymph # 1.0 10 1.5-5.0 Below low normal Lymph # LASHONDA ( [facility]) baso # 0.0 10 0.0-0.2 Baso # LASHONDA ([facility]) ID Date Data Source [id number] 08/04/2020 02:00:00 PM EST LASHONDA ([facility]) Name Value Range Interpretation Code Description Data Sharmila rce(s) Supporting Document(s) total 25(oh) vitamin D 21.1 NG/mL 30.0-100.0 Below low normal T otal 25(Oh) Vitamin D [place] ([facility]) ID Date Data Source [id number] 08/04/2020 02:00:00 PM EST LASHONDA ([facility]) Name Value Range Interpretation Code Description Data Sharmila rce(s) Supporting Document(s) magnesium level 1.8 mg/dL 1.8-2.4 Magnesium Level ATHE NA ([facility]) ID Date Data Source [id number] 08/04/2020 02:00:00 PM EST LASHONDA ([facility]) Name Value Range Interpretation Code Description Data Sharmila rce(s) Supporting Document(s) triglycerides level 116 mg/dL <150 Triglycerides Le tres LASHONDA ([facility]) HDL cholesterol 81 mg/dL >40 HDL Cholesterol ATHE NA ([facility]) cholesterol level 221 mg/dL <200 Above high normal Cholesterol Level LASHONDA ([facility]) non-HDL-C 140 mg/dL Non-hdl-c LASHONDA ([facility]) cholesterol risk ratio <5 Cholesterol R isk Ratio LASHONDA ([facility]) Cholesterol in LDL [Mass/volume] in Serum or Plasma 117 mg/dL <100 Above high normal LDL Cholesterol LASHONDA ([facility]) ID Date Data Source [id number] 08/04/2020 02:00:00 PM EST LASHONDA ([facility]) Name Value Range Interpretation Code Description Data Sharmila rce(s) Supporting Document(s) glucose, fasting 103 mg/dL 70-100 Above high normal Glucose, Fas ting LASHONDA ([facility]) glomerular filtration rate > 60.0 >51 Glomerula r Filtration Rate LASHONDA ([facility]) blood urea nitrogen 22 mg/dL 7-18 Above high normal Blood Ure a Nitrogen LASHONDA ([facility]) creatinine for GFR 0.97 mg/dL 0.55-1.30 Creatinine for GF R LASHONDA ([facility]) sodium level 141 mEq/L 136-145 Sodium Level LASHONDA ([facility]) potassium serum 4.5 mEq/L 3.5-5.1 Potassium Serum ATHE NA ([facility]) carbon dioxide level 29 mEq/L 21-32 Carbon Dioxide Level LASHONDA ([facility]) chloride level 109 mEq/L 98-107 Above high normal Chloride Level LASHONDA ([facility]) anion gap 3 mEq/L 8-16 Below low normal Anion Gap LASHONDA ( [facility]) ALT/SGPT 21 U/L 12-78 ALT/SGPT LASHONDA ([facility]) alkaline phosphatase 65 U/L 45-117 Alkaline Phosph atase LASHONDA ([facility]) AST/SGOT 11 U/L 7-37 AST/SGOT LASHONDA ([facility]) calcium level 8.7 mg/dL 8.5-10.1 Calcium Level LASHONDA ( [facility]) albumin 3.8 gm/dL 3.2-5.2 Albumin LASHONDA ([facility]) total protein 6.4 gm/dL 6.4-8.2 Total Protein LASHONDA ( [facility]) bilirubin,total 0.2 mg/dL 0.2-1.0 Bilirubin,total ATHE ([facility]) albumin/globulin ratio 1.2-2.2 Albumin/globu luis carlos Ratio LASHONDA ([facility]) ID Date Data Source [id number] 08/04/2020 02:00:00 PM EST LASHONDA ([facility]) Name Value Range Interpretation Code Description Data Sharmila rce(s) Supporting Document(s) white blood count 4.0 10 4.0-10.0 White Blood Count LASHONDA ([facility]) red blood count 3.73 10 4.00-5.40 Below low normal Red Blood Coun t LASHONDA ([facility]) hemoglobin 12.2 g/dL 12.0-15.5 Hemoglobin LASHONDA ([facility]) mean corpuscular volume 100.3 fL 80.0-96.0 Above high normal Mean Corpuscular Volume LASHONDA ([facility]) hematocrit 37.4 % 36.0-47.0 Hematocrit LASHONDA ([facility]) red cell distribution width 12.4 % 11.5-14.5 Red Cell Distribution Width LASHONDA ([facility]) mean corpuscular HGB conc 32.6 g/dL 32.0-36.5 Mean Corpu scular HGB Conc LASHONDA ([facility]) mean corpuscular hemoglobin 32.7 pg 27.0-33.0 Mean Cor puscular Hemoglobin LASHONDA ([facility]) platelet count, automated 225 10 150-450 Platelet C ount, Automated LASHONDA ([facility]) neutrophils % 64.3 % 36.0-66.0 Neutrophils % LASHONDA ( [facility]) lymph % 24.8 % 24.0-44.0 Lymph % LASHONDA ([facility]) eos % 1.5 % 0.0-3.0 Eos % [place] ([facility]) mono % 8.2 % 2.0-8.0 Above high normal Baker % LASHONDA ([facility]) baso % 0.5 % 0.0-1.0 Baso % [place] ([facility]) immature granulocyte % 0.7 % 0-3.0 Immature Gran ulocyte % LASHONDA ([facility]) nucleated red blood cell % 0.0 % 0-0 Nucleated Red Blood Cell % LASHONDA ([facility]) mono # 0.3 10 0.0-0.8 Baker # LASHONDA ([facility]) neutrophils # 2.6 10 1.5-8.5 Neutrophils # LASHONDA ( [facility]) lymph # 1.0 10 1.5-5.0 Below low normal Lymph # LASHONDA ( [facility]) eos # 0.1 10 0.0-0.5 Eos # LASHONDA ([facility]) baso # 0.0 10 0.0-0.2 Baso # LASHONDA ([facility]) ID Date Data Source [id number] 08/04/2020 02:00:00 PM EST [place] ([facility]) Name Value Range Interpretation Code Description Data Sharmila rce(s) Supporting Document(s) total 25(oh) vitamin D 21.1 NG/mL 30.0-100.0 Below low normal T otal 25(Oh) Vitamin D LASHONDA ([facility]) ID Date Data Source [id number] 08/04/2020 02:00:00 PM EST LASHONDA ([facility]) Name Value Range Interpretation Code Description Data Sharmila rce(s) Supporting Document(s) magnesium level 1.8 mg/dL 1.8-2.4 Magnesium Level ATHE NA ([facility]) ID Date Data Source [id number] 08/04/2020 02:00:00 PM EST LASHONDA ([facility]) Name Value Range Interpretation Code Description Data Sharmila rce(s) Supporting Document(s) HDL cholesterol 81 mg/dL >40 HDL Cholesterol ATHE ([facility]) triglycerides level 116 mg/dL <150 Triglycerides Le tres LASHONDA ([facility]) cholesterol level 221 mg/dL <200 Above high normal Cholesterol Level LASHONDA ([facility]) non-HDL-C 140 mg/dL Non-hdl-c LASHONDA ([facility]) cholesterol risk ratio <5 Cholesterol R isk Ratio LASHONDA ([facility]) Cholesterol in LDL [Mass/volume] in Serum or Plasma 117 mg/dL <100 Above high normal LDL Cholesterol LASHONDA ([facility]) ID Date Data Source [id number] 08/04/2020 02:00:00 PM EST LASHONDA ([facility]) Name Value Range Interpretation Code Description Data Sharmila rce(s) Supporting Document(s) blood urea nitrogen 22 mg/dL 7-18 Above high normal Blood Ure a Nitrogen LASHONDA ([facility]) glucose, fasting 103 mg/dL 70-100 Above high normal Glucose, Fas ting LASHONDA ([facility]) potassium serum 4.5 mEq/L 3.5-5.1 Potassium Serum ATHE ([facility]) glomerular filtration rate > 60.0 >51 Glomerula r Filtration Rate LASHONDA ([facility]) creatinine for GFR 0.97 mg/dL 0.55-1.30 Creatinine for GF R LASHONDA ([facility]) sodium level 141 mEq/L 136-145 Sodium Level LASHONDA ([facility]) carbon dioxide level 29 mEq/L 21-32 Carbon Dioxide Level LASHONDA ([facility]) chloride level 109 mEq/L 98-107 Above high normal Chloride Level LASHONDA ([facility]) anion gap 3 mEq/L 8-16 Below low normal Anion Gap LASHONDA ( [facility]) calcium level 8.7 mg/dL 8.5-10.1 Calcium Level LASHONDA ( [facility]) AST/SGOT 11 U/L 7-37 AST/SGOT LASHONDA ([facility]) ALT/SGPT 21 U/L 12-78 ALT/SGPT LASHONDA ([facility]) alkaline phosphatase 65 U/L 45-117 Alkaline Phosph atase LASHONDA ([facility]) total protein 6.4 gm/dL 6.4-8.2 Total Protein LASHONDA ( [facility]) bilirubin,total 0.2 mg/dL 0.2-1.0 Bilirubin,total ATHE ([facility]) albumin/globulin ratio 1.2-2.2 Albumin/globu luis carlos Ratio LASHONDA ([facility]) albumin 3.8 gm/dL 3.2-5.2 Albumin LASHONDA ([facility]) ID Date Data Source [id number] 08/04/2020 02:00:00 PM EST LASHONDA ([facility]) Name Value Range Interpretation Code Description Data Sharmila rce(s) Supporting Document(s) white blood count 4.0 10 4.0-10.0 White Blood Count LASHONDA ([facility]) red blood count 3.73 10 4.00-5.40 Below low normal Red Blood Coun t LASHONDA ([facility]) hemoglobin 12.2 g/dL 12.0-15.5 Hemoglobin LASHONDA ([facility]) mean corpuscular hemoglobin 32.7 pg 27.0-33.0 Mean Cor puscular Hemoglobin LASHONDA ([facility]) mean corpuscular volume 100.3 fL 80.0-96.0 Above high normal Mean Corpuscular Volume LASHONDA ([facility]) hematocrit 37.4 % 36.0-47.0 Hematocrit LASHONDA ([facility]) mean corpuscular HGB conc 32.6 g/dL 32.0-36.5 Mean Corpu scular HGB Conc LASHONDA ([facility]) red cell distribution width 12.4 % 11.5-14.5 Red Cell Distribution Width LASHONDA ([facility]) platelet count, automated 225 10 150-450 Platelet C ount, Automated LASHONDA ([facility]) mono % 8.2 % 2.0-8.0 Above high normal Baker % LASHONDA ([facility]) neutrophils % 64.3 % 36.0-66.0 Neutrophils % LASHONDA ( [facility]) lymph % 24.8 % 24.0-44.0 Lymph % LASHONDA ([facility]) eos % 1.5 % 0.0-3.0 Eos % LASHONDA ([facility]) baso % 0.5 % 0.0-1.0 Baso % LASHONDA ([facility]) neutrophils # 2.6 10 1.5-8.5 Neutrophils # [place] ( [facility]) immature granulocyte % 0.7 % 0-3.0 Immature Gran ulocyte % LASHONDA ([facility]) nucleated red blood cell % 0.0 % 0-0 Nucleated Red Blood Cell % LASHONDA ([facility]) lymph # 1.0 10 1.5-5.0 Below low normal Lymph # LASHONDA ( [facility]) mono # 0.3 10 0.0-0.8 Baker # LASHONDA ([facility]) eos # 0.1 10 0.0-0.5 Eos # LASHONDA ([facility]) baso # 0.0 10 0.0-0.2 Baso # LASHONDA ([facility]) ID Date Data Source [id number] 08/04/2020 02:00:00 PM EST LASHONDA ([facility]) Name Value Range Interpretation Code Description Data Sharmila rce(s) Supporting Document(s) total 25(oh) vitamin D 21.1 NG/mL 30.0-100.0 Below low normal T otal 25(Oh) Vitamin D LASHONDA ([facility]) ID Date Data Source [id number] 08/04/2020 02:00:00 PM EST LASHONDA ([facility]) Name Value Range Interpretation Code Description Data Sharmila rce(s) Supporting Document(s) magnesium level 1.8 mg/dL 1.8-2.4 Magnesium Level ATHE NA ([facility]) ID Date Data Source [id number] 08/04/2020 02:00:00 PM EST LASHONDA ([facility]) Name Value Range Interpretation Code Description Data Sharmila rce(s) Supporting Document(s) cholesterol level 221 mg/dL <200 Above high normal Cholesterol Level LASHONDA ([facility]) triglycerides level 116 mg/dL <150 Triglycerides Le tres LASHONDA ([facility]) HDL cholesterol 81 mg/dL >40 HDL Cholesterol ATHE NA ([facility]) non-HDL-C 140 mg/dL Non-hdl-c LASHONDA ([facility]) Cholesterol in LDL [Mass/volume] in Serum or Plasma 117 mg/dL <100 Above high normal LDL Cholesterol LASHONDA ([facility]) cholesterol risk ratio <5 Cholesterol R isk Ratio LASHONDA ([facility]) ID Date Data Source [id number] 08/04/2020 02:00:00 PM EST LASHONDA ([facility]) Name Value Range Interpretation Code Description Data Sharmila rce(s) Supporting Document(s) glucose, fasting 103 mg/dL 70-100 Above high normal Glucose, Fas ting LASHONDA ([facility]) blood urea nitrogen 22 mg/dL 7-18 Above high normal Blood Ure a Nitrogen LASHONDA ([facility]) creatinine for GFR 0.97 mg/dL 0.55-1.30 Creatinine for GF R LASHONDA ([facility]) glomerular filtration rate > 60.0 >51 Glomerula r Filtration Rate LASHONDA ([facility]) sodium level 141 mEq/L 136-145 Sodium Level LASHONDA ([facility]) chloride level 109 mEq/L 98-107 Above high normal Chloride Level LASHONDA ([facility]) carbon dioxide level 29 mEq/L 21-32 Carbon Dioxide Level LASHONDA ([facility]) potassium serum 4.5 mEq/L 3.5-5.1 Potassium Serum ATHE NA ([facility]) calcium level 8.7 mg/dL 8.5-10.1 Calcium Level LASHONDA ( [facility]) anion gap 3 mEq/L 8-16 Below low normal Anion Gap LASHONDA ( [facility]) alkaline phosphatase 65 U/L 45-117 Alkaline Phosph atase LASHONDA ([facility]) AST/SGOT 11 U/L 7-37 AST/SGOT LASH[place]DA ([facility]) ALT/SGPT 21 U/L 12-78 ALT/SGPT LASHONDA ([facility]) bilirubin,total 0.2 mg/dL 0.2-1.0 Bilirubin,total ATHE ([facility]) total protein 6.4 gm/dL 6.4-8.2 Total Protein LASHONDA ( [facility]) albumin 3.8 gm/dL 3.2-5.2 Albumin LASHONDA ([facility]) albumin/globulin ratio 1.2-2.2 Albumin/globu luis carlos Ratio LASHONDA ([facility]) ID Date Data Source [id number] 08/04/2020 02:00:00 PM EST LASHONDA ([facility]) Name Value Range Interpretation Code Description Data Sharmila rce(s) Supporting Document(s) white blood count 4.0 10 4.0-10.0 White Blood Count LASHONDA ([facility]) red blood count 3.73 10 4.00-5.40 Below low normal Red Blood Coun t LASHONDA ([facility]) hematocrit 37.4 % 36.0-47.0 Hematocrit LASHONDA ([facility]) hemoglobin 12.2 g/dL 12.0-15.5 Hemoglobin LASHONDA ([facility]) mean corpuscular volume 100.3 fL 80.0-96.0 Above high normal Mean Corpuscular Volume LASHONDA ([facility]) mean corpuscular hemoglobin 32.7 pg 27.0-33.0 Mean Cor puscular Hemoglobin LASHONDA ([facility]) mean corpuscular HGB conc 32.6 g/dL 32.0-36.5 Mean Corpu scular HGB Conc LASHONDA ([facility]) red cell distribution width 12.4 % 11.5-14.5 Red Cell Distribution Width LASHONDA ([facility]) neutrophils % 64.3 % 36.0-66.0 Neutrophils % [place] ( [facility]) platelet count, automated 225 10 150-450 Platelet C ount, Automated LASHONDA ([facility]) lymph % 24.8 % 24.0-44.0 Lymph % LASHONDA ([facility]) eos % 1.5 % 0.0-3.0 Eos % LASHONDA ([facility]) mono % 8.2 % 2.0-8.0 Above high normal Baker % LASHONDA ([facility]) immature granulocyte % 0.7 % 0-3.0 Immature Gran ulocyte % LASHONDA ([facility]) baso % 0.5 % 0.0-1.0 Baso % LASHONDA ([facility]) nucleated red blood cell % 0.0 % 0-0 Nucleated Red Blood Cell % LASHONDA ([facility]) neutrophils # 2.6 10 1.5-8.5 Neutrophils # LASHONDA ( [facility]) lymph # 1.0 10 1.5-5.0 Below low normal Lymph # LASHONDA ( [facility]) eos # 0.1 10 0.0-0.5 Eos # LASHONDA ([facility]) baso # 0.0 10 0.0-0.2 Baso # LASHONDA ([facility]) mono # 0.3 10 0.0-0.8 Baker # LASHONDA ([facility]) ID Date Data Source [id number] 08/04/2020 02:00:00 PM EST LASHONDA ([facility]) Name Value Range Interpretation Code Description Data Sharmila rce(s) Supporting Document(s) total 25(oh) vitamin D 21.1 NG/mL 30.0-100.0 Below low normal T otal 25(Oh) Vitamin D LASHONDA ([facility]) ID Date Data Source [id number] 08/04/2020 02:00:00 PM EST LASHONDA ([facility]) Name Value Range Interpretation Code Description Data Sharmila rce(s) Supporting Document(s) magnesium level 1.8 mg/dL 1.8-2.4 Magnesium Level ATHE NA ([facility]) ID Date Data Source [id number] 08/04/2020 02:00:00 PM EST LASHONDA ([facility]) Name Value Range Interpretation Code Description Data Sharmila rce(s) Supporting Document(s) HDL cholesterol 81 mg/dL >40 HDL Cholesterol ATHE NA ([facility]) cholesterol level 221 mg/dL <200 Above high normal Cholesterol Level LASHONDA ([facility]) triglycerides level 116 mg/dL <150 Triglycerides Le tres LASHONDA ([facility]) cholesterol risk ratio <5 Cholesterol R isk Ratio LASHONDA ([facility]) Cholesterol in LDL [Mass/volume] in Serum or Plasma 117 mg/dL <100 Above high normal LDL Cholesterol [facility]DA ([facility]) non-HDL-C 140 mg/dL Non-hdl-c LASHONDA ([facility]) ID Date Data Source [id number] 08/04/2020 02:00:00 PM EST [facility] ([facility]) Name Value Range Interpretation Code Description Data Sharmila rce(s) Supporting Document(s) glucose, fasting 103 mg/dL 70-100 Above high normal Glucose, Fas ting [facility]DA ([facility]) blood urea nitrogen 22 mg/dL 7-18 Above high normal Blood Ure a Nitrogen [facility] ([facility]) glomerular filtration rate > 60.0 >51 Glomerula r Filtration Rate [facility] ([facility]) creatinine for GFR 0.97 mg/dL 0.55-1.30 Creatinine for GF R [facility]DA ([facility]) sodium level 141 mEq/L 136-145 Sodium Level [facility] ([facility]) chloride level 109 mEq/L 98-107 Above high normal Chloride Level [facility]DA ([facility]) carbon dioxide level 29 mEq/L 21-32 Carbon Dioxide Level [facility]DA ([facility]) potassium serum 4.5 mEq/L 3.5-5.1 Potassium Serum ATHE ([facility]) anion gap 3 mEq/L 8-16 Below low normal Anion Gap [facility] ( [facility]) AST/SGOT 11 U/L 7-37 AST/SGOT [facility] ([facility]) calcium level 8.7 mg/dL 8.5-10.1 Calcium Level L[facility]DA ( [facility]) ALT/SGPT 21 U/L 12-78 ALT/SGPT [facility] ([facility]) alkaline phosphatase 65 U/L 45-117 Alkaline Phosph atase [facility] ([facility]) bilirubin,total 0.2 mg/dL 0.2-1.0 Bilirubin,total ATHE ([facility]) total protein 6.4 gm/dL 6.4-8.2 Total Protein L[facility]DA ( [facility]) albumin/globulin ratio 1.2-2.2 Albumin/globu luis carlos Ratio [facility]DA ([facility]) albumin 3.8 gm/dL 3.2-5.2 Albumin [facility] ([facility]) ID Date Data Source [id number] 08/04/2020 02:00:00 PM EST L[facility] ([facility]) Name Value Range Interpretation Code Description Data Sharmila rce(s) Supporting Document(s) white blood count 4.0 10 4.0-10.0 White Blood Count [facility] ([facility]) red blood count 3.73 10 4.00-5.40 Below low normal Red Blood Coun t [facility]DA ([facility]) hemoglobin 12.2 g/dL 12.0-15.5 Hemoglobin [facility] ([facility]) hematocrit 37.4 % 36.0-47.0 Hematocrit [facility] ([facility]) mean corpuscular volume 100.3 fL 80.0-96.0 Above high normal Mean Corpuscular Volume [facility] ([facility]) mean corpuscular HGB conc 32.6 g/dL 32.0-36.5 Mean Corpu scular HGB Conc [facility]DA ([facility]) mean corpuscular hemoglobin 32.7 pg 27.0-33.0 Mean Cor puscular Hemoglobin [facility] ([facility]) red cell distribution width 12.4 % 11.5-14.5 Red Cell Distribution Width [facility] ([facility]) platelet count, automated 225 10 150-450 Platelet C ount, Automated [place] ([facility]) neutrophils % 64.3 % 36.0-66.0 Neutrophils % [place] ( [facility]) lymph % 24.8 % 24.0-44.0 Lymph % [place] ([facility]) eos % 1.5 % 0.0-3.0 Eos % [place] ([facility]) baso % 0.5 % 0.0-1.0 Baso % [facility] ([facility]) mono % 8.2 % 2.0-8.0 Above high normal Baker % [place] ([facility]) nucleated red blood cell % 0.0 % 0-0 Nucleated Red Blood Cell % [facility] ([facility]) immature granulocyte % 0.7 % 0-3.0 Immature Gran ulocyte % [facility] ([facility]) mono # 0.3 10 0.0-0.8 Baker # [place] ([facility]) lymph # 1.0 10 1.5-5.0 Below low normal Lymph # [place] ( [facility]) neutrophils # 2.6 10 1.5-8.5 Neutrophils # [place] ( [facility]) eos # 0.1 10 0.0-0.5 Eos # [facility] ([facility]) baso # 0.0 10 0.0-0.2 Baso # [facility] ([facility]) ID Date Data Source [id number] 06/22/2020 12:00:00 AM EST [facility] Deo Fay MD Patient Name: LANNY PINEDA,[id number] [facility] Date of : 1965[place] [address] Date of Exam: 06/22/2020#: Fax: [phone] EXAM: [...] rce(s) Supporting Document(s) ID Date Data Source [id number] 03/18/2020 01:09:00 PM EDT [facility]ASHNODA ([facility]) Name Value Range Interpretation Code Description Data Sharmila rce(s) Supporting Document(s) estimated average glucose 94 mg/dL 60-110 Estimated Average Glucose [facility]DA ([facility]) Hemoglobin A1c/Hemoglobin.total in Blood 4.9 % Hemoglobin a1C [facility] ([facility]) ID Date Data Source [id number] 03/18/2020 01:09:00 PM EDT [facility] ([facility]) Name Value Range Interpretation Code Description Data Sharmila rce(s) Supporting Document(s) total 25(oh) vitamin D 25.2 NG/mL 30.0-100.0 Below low normal T otal 25(Oh) Vitamin D [facility] ([facility]) ID Date Data Source [id number] 03/18/2020 01:09:00 PM EDT [facility] ([facility]) Name Value Range Interpretation Code Description Data Sharmila rce(s) Supporting Document(s) thyroid stimulating hormone 2.710 uIU/mL 0.358-3.740 Thyroid Stimulating Hormone [facility]DA ([facility]) free T4 0.90 NG/dL 0.76-1.46 Free T4 [facility] ([facility]) ID Date Data Source [id number] 03/18/2020 01:09:00 PM EDT [facility]DA ([facility]) Name Value Range Interpretation Code Description Data Sharmila rce(s) Supporting Document(s) Cholesterol in LDL [Mass/volume] in Serum or Plasma 71 mg/dL <1 00 LDL Cholesterol [facility]DA ([facility]) HDL cholesterol 91 mg/dL >40 HDL Cholesterol ATHE NA ([facility]) cholesterol level 193 mg/dL <200 Cholesterol Level [facility]DA ([facility]) triglycerides level 153 mg/dL <150 Above high normal Triglycer ides Level [facility]ONDA ([facility]) non-HDL-C 102 mg/dL Non-hdl-c [facility] ([facility]) cholesterol risk ratio <5 Cholesterol R isk Ratio [facility]DA ([facility]) ID Date Data Source [id number] 03/18/2020 01:09:00 PM EDT [facility]DA ([facility]) Name Value Range Interpretation Code Description Data Sharmila rce(s) Supporting Document(s) glucose, fasting 82 mg/dL 70-100 Glucose, Fasting AT [place] ([facility]) blood urea nitrogen 21 mg/dL 7-18 Above high normal Blood Ure a Nitrogen [facility] ([facility]) potassium serum 5.4 mEq/L 3.5-5.1 Above high normal Potassium Ser um [facility]DA ([facility]) sodium level 140 mEq/L 136-145 Sodium Level [facility]DA ([facility]) glomerular filtration rate >51 Glomerula r Filtration Rate [facility]DA ([facility]) creatinine for GFR 1.02 mg/dL 0.55-1.30 Creatinine for GF R [facility] ([facility]) anion gap 3 mEq/L 8-16 Below low normal Anion Gap [facility] ( [facility]) carbon dioxide level 29 mEq/L 21-32 Carbon Dioxide Level [facility]DA ([facility]) chloride level 108 mEq/L 98-107 Above high normal Chloride Level [facility]DA ([facility]) calcium level 8.8 mg/dL 8.5-10.1 Calcium Level [facility] ( [facility]) ALT/SGPT 22 U/L 12-78 ALT/SGPT [facility] ([facility]) alkaline phosphatase 78 U/L 45-117 Alkaline Phosph atase [facility]DA ([facility]) AST/SGOT 20 U/L 7-37 AST/SGOT [facility] ([facility]) albumin 3.7 gm/dL 3.2-5.2 Albumin [facility] ([facility]) albumin/globulin ratio 1.2-2.2 Albumin/globu luis carlos Ratio [facility]DA ([facility]) total protein 6.8 gm/dL 6.4-8.2 Total Protein [facility] ( [facility]) bilirubin,total 0.3 mg/dL 0.2-1.0 Bilirubin,total ATHE NA ([facility]) ID Date Data Source [id number] 03/18/2020 01:09:00 PM EDT [facility]DA ([facility]) Name Value Range Interpretation Code Description Data Sharmila rce(s) Supporting Document(s) white blood count 4.3 10 4.0-10.0 White Blood Count [facility]DA ([facility]) hematocrit 40.8 % 36.0-47.0 Hematocrit [facility] ([facility]) hemoglobin 13.3 g/dL 12.0-15.5 Hemoglobin [facility] ([facility]) red blood count 4.22 10 4.00-5.40 Red Blood Count ATHE NA ([facility]) mean corpuscular volume 96.7 fL 80.0-96.0 Above high normal Mean Corpuscular Volume [facility]DA ([facility]) red cell distribution width 12.4 % 11.5-14.5 Red Cell Distribution Width [facility] ([facility]) mean corpuscular hemoglobin 31.5 pg 27.0-33.0 Mean Cor puscular Hemoglobin [facility]DA ([facility]) mean corpuscular HGB conc 32.6 g/dL 32.0-36.5 Mean Corpu scular HGB Conc [facility]DA ([facility]) platelet count, automated 252 10 150-450 Platelet C ount, Automated [facility] ([facility]) lymph % 25.8 % 24.0-44.0 Lymph % [place] ([facility]) neutrophils % 64.1 % 36.0-66.0 Neutrophils % [place] ( [facility]) mono % 6.8 % 0.0-5.0 Above high normal Baker % [place] ([facility]) baso % 0.9 % 0.0-1.0 Baso % [facility] ([facility]) eos % 1.9 % 0.0-3.0 Eos % [place] ([facility]) neutrophils # 2.7 10 1.5-8.5 Neutrophils # [place] ( [facility]) lymph # 1.1 10 1.5-5.0 Below low normal Lymph # [place] ( [facility]) immature granulocyte % 0.5 % 0-3.0 Immature Gran ulocyte % [facility] ([facility]) nucleated red blood cell % 0.0 % 0-0 Nucleated Red Blood Cell % [facility] ([facility]) mono # 0.3 10 0.0-0.8 Baker # [facility] ([facility]) eos # 0.1 10 0.0-0.5 Eos # [facility] ([facility]) baso # 0.0 10 0.0-0.2 Baso # [facility] ([facility]) ID Date Data Source [id number] 03/18/2020 01:09:00 PM EDT [facility] ([facility]) Name Value Range Interpretation Code Description Data Sharmila rce(s) Supporting Document(s) Hemoglobin A1c/Hemoglobin.total in Blood 4.9 % Hemoglobin a1C [facility] ([facility]) estimated average glucose 94 mg/dL 60-110 Estimated Average Glucose [facility] ([facility]) ID Date Data Source [id number] 03/18/2020 01:09:00 PM EDT [facility] ([facility]) Name Value Range Interpretation Code Description Data Sharmila rce(s) Supporting Document(s) total 25(oh) vitamin D 25.2 NG/mL 30.0-100.0 Below low normal T otal 25(Oh) Vitamin D [facility] ([facility]) ID Date Data Source [id number] 03/18/2020 01:09:00 PM EDT [facility] ([facility]) Name Value Range Interpretation Code Description Data Sharmila rce(s) Supporting Document(s) free T4 0.90 NG/dL 0.76-1.46 Free T4 [facility] ([facility]) thyroid stimulating hormone 2.710 uIU/mL 0.358-3.740 Thyroid Stimulating Hormone [facility]DA ([facility]) ID Date Data Source [id number] 03/18/2020 01:09:00 PM EDT [facility]DA ([facility]) Name Value Range Interpretation Code Description Data Sharmila rce(s) Supporting Document(s) cholesterol level 193 mg/dL <200 Cholesterol Level [facility] ([facility]) triglycerides level 153 mg/dL <150 Above high normal Triglycer ides Level [facility]DA ([facility]) non-HDL-C 102 mg/dL Non-hdl-c [facility] ([facility]) cholesterol risk ratio <5 Cholesterol R isk Ratio [facility] ([facility]) HDL cholesterol 91 mg/dL >40 HDL Cholesterol ATHE NA ([facility]) Cholesterol in LDL [Mass/volume] in Serum or Plasma 71 mg/dL <1 00 LDL Cholesterol [facility] ([facility]) ID Date Data Source [id number] 03/18/2020 01:09:00 PM EDT [facility]DA ([facility]) Name Value Range Interpretation Code Description Data Sharmila rce(s) Supporting Document(s) blood urea nitrogen 21 mg/dL 7-18 Above high normal Blood Ure a Nitrogen [facility]DA ([facility]) glucose, fasting 82 mg/dL 70-100 Glucose, Fasting AT [facility]) potassium serum 5.4 mEq/L 3.5-5.1 Above high normal Potassium Ser um [facility]DA ([facility]) glomerular filtration rate >51 Glomerula r Filtration Rate [facility]DA ([facility]) creatinine for GFR 1.02 mg/dL 0.55-1.30 Creatinine for GF R [facility]DA ([facility]) sodium level 140 mEq/L 136-145 Sodium Level [facility] ([facility]) carbon dioxide level 29 mEq/L 21-32 Carbon Dioxide Level [facility] ([facility]) chloride level 108 mEq/L 98-107 Above high normal Chloride Level [facility] ([facility]) AST/SGOT 20 U/L 7-37 AST/SGOT [facility] ([facility]) calcium level 8.8 mg/dL 8.5-10.1 Calcium Level [place]DA ( [facility]) anion gap 3 mEq/L 8-16 Below low normal Anion Gap [facility] ( [facility]) ALT/SGPT 22 U/L 12-78 ALT/SGPT [facility] ([facility]) albumin 3.7 gm/dL 3.2-5.2 Albumin [facility] ([facility]) bilirubin,total 0.3 mg/dL 0.2-1.0 Bilirubin,total ATHE NA ([facility]) alkaline phosphatase 78 U/L 45-117 Alkaline Phosph atase [facility] ([facility]) total protein 6.8 gm/dL 6.4-8.2 Total Protein [facility] ( [facility]) albumin/globulin ratio 1.2-2.2 Albumin/globu luis carlos Ratio [facility] ([facility]) ID Date Data Source [id number] 03/18/2020 01:09:00 PM EDT [facility] ([facility]) Name Value Range Interpretation Code Description Data Sharmila rce(s) Supporting Document(s) white blood count 4.3 10 4.0-10.0 White Blood Count [place] ([facility]) red blood count 4.22 10 4.00-5.40 Red Blood Count ATHE NA ([facility]) hematocrit 40.8 % 36.0-47.0 Hematocrit [place] ([facility]) hemoglobin 13.3 g/dL 12.0-15.5 Hemoglobin [place] ([facility]) mean corpuscular volume 96.7 fL 80.0-96.0 Above high normal Mean Corpuscular Volume [facility] ([facility]) platelet count, automated 252 10 150-450 Platelet C ount, Automated [place] ([facility]) mean corpuscular HGB conc 32.6 g/dL 32.0-36.5 Mean Corpu scular HGB Conc [facility] ([facility]) mean corpuscular hemoglobin 31.5 pg 27.0-33.0 Mean Cor puscular Hemoglobin [facility] ([facility]) red cell distribution width 12.4 % 11.5-14.5 Red Cell Distribution Width [facility] ([facility]) mono % 6.8 % 0.0-5.0 Above high normal Baker % [place] ([facility]) lymph % 25.8 % 24.0-44.0 Lymph % [place] ([facility]) neutrophils % 64.1 % 36.0-66.0 Neutrophils % [place] ( [facility]) immature granulocyte % 0.5 % 0-3.0 Immature Gran ulocyte % [place] ([facility]) eos % 1.9 % 0.0-3.0 Eos % [place] ([facility]) baso % 0.9 % 0.0-1.0 Baso % [place] ([facility]) lymph # 1.1 10 1.5-5.0 Below low normal Lymph # [place] ( [facility]) nucleated red blood cell % 0.0 % 0-0 Nucleated Red Blood Cell % [place] ([facility]) mono # 0.3 10 0.0-0.8 Baker # [place] ([facility]) neutrophils # 2.7 10 1.5-8.5 Neutrophils # [place] ( [facility]) eos # 0.1 10 0.0-0.5 Eos # [place] ([facility]) baso # 0.0 10 0.0-0.2 Baso # [place] ([facility]) ID Date Data Source [id number] 03/18/2020 01:09:00 PM EDT [place] ([facility]) Name Value Range Interpretation Code Description Data Sharmila rce(s) Supporting Document(s) Hemoglobin A1c/Hemoglobin.total in Blood 4.9 % Hemoglobin a1C [facility] ([facility]) estimated average glucose 94 mg/dL 60-110 Estimated Average Glucose [place] ([facility]) ID Date Data Source [id number] 03/18/2020 01:09:00 PM EDT [place] ([facility]) Name Value Range Interpretation Code Description Data Sharmila rce(s) Supporting Document(s) total 25(oh) vitamin D 25.2 NG/mL 30.0-100.0 Below low normal T otal 25(Oh) Vitamin D [place] ([facility]) ID Date Data Source [id number] 03/18/2020 01:09:00 PM EDT [place] ([facility]) Name Value Range Interpretation Code Description Data Sharmila rce(s) Supporting Document(s) thyroid stimulating hormone 2.710 uIU/mL 0.358-3.740 Thyroid Stimulating Hormone [place]DA ([facility]) free T4 0.90 NG/dL 0.76-1.46 Free T4 [facility] ([facility]) ID Date Data Source [id number] 03/18/2020 01:09:00 PM EDT [place] ([facility]) Name Value Range Interpretation Code Description Data Sharmila rce(s) Supporting Document(s) triglycerides level 153 mg/dL <150 Above high normal Triglycer ides Level [facility] ([facility]) HDL cholesterol 91 mg/dL >40 HDL Cholesterol AT[facility] ([facility]) Cholesterol in LDL [Mass/volume] in Serum or Plasma 71 mg/dL <1 00 LDL Cholesterol [facility] ([facility]) cholesterol level 193 mg/dL <200 Cholesterol Level [facility] ([facility]) non-HDL-C 102 mg/dL Non-hdl-c [facility] ([facility]) cholesterol risk ratio <5 Cholesterol R isk Ratio [facility] ([facility]) ID Date Data Source [id number] 03/18/2020 01:09:00 PM EDT [place] ([facility]) Name Value Range Interpretation Code Description Data Sharmila rce(s) Supporting Document(s) glomerular filtration rate >51 Glomerula r Filtration Rate [facility]DA ([facility]) blood urea nitrogen 21 mg/dL 7-18 Above high normal Blood Ure a Nitrogen [facility] ([facility]) glucose, fasting 82 mg/dL 70-100 Glucose, Fasting AT [facility] ([facility]) creatinine for GFR 1.02 mg/dL 0.55-1.30 Creatinine for GF R [place] ([facility]) carbon dioxide level 29 mEq/L 21-32 Carbon Dioxide Level [facility] ([facility]) sodium level 140 mEq/L 136-145 Sodium Level [facility] ([facility]) potassium serum 5.4 mEq/L 3.5-5.1 Above high normal Potassium Ser um [place] ([facility]) chloride level 108 mEq/L 98-107 Above high normal Chloride Level [facility] ([facility]) calcium level 8.8 mg/dL 8.5-10.1 Calcium Level [place] ( [facility]) ALT/SGPT 22 U/L 12-78 ALT/SGPT [place] ([facility]) anion gap 3 mEq/L 8-16 Below low normal Anion Gap [place] ( [facility]) AST/SGOT 20 U/L 7-37 AST/SGOT [place] ([facility]) albumin 3.7 gm/dL 3.2-5.2 Albumin [place] ([facility]) alkaline phosphatase 78 U/L 45-117 Alkaline Phosph atase [facility] ([facility]) albumin/globulin ratio 1.2-2.2 Albumin/globu luis carlos Ratio [facility] ([facility]) bilirubin,total 0.3 mg/dL 0.2-1.0 Bilirubin,total [facility] ([facility]) total protein 6.8 gm/dL 6.4-8.2 Total Protein [place] ( [facility]) ID Date Data Source [id number] 03/18/2020 01:09:00 PM EDT [place] ([facility]) Name Value Range Interpretation Code Description Data Sharmila rce(s) Supporting Document(s) white blood count 4.3 10 4.0-10.0 White Blood Count [place] ([facility]) hemoglobin 13.3 g/dL 12.0-15.5 Hemoglobin [place] ([facility]) red blood count 4.22 10 4.00-5.40 Red Blood Count [facility] ([facility]) hematocrit 40.8 % 36.0-47.0 Hematocrit [place] ([facility]) mean corpuscular volume 96.7 fL 80.0-96.0 Above high normal Mean Corpuscular Volume [place] ([facility]) red cell distribution width 12.4 % 11.5-14.5 Red Cell Distribution Width [place] ([facility]) mean corpuscular hemoglobin 31.5 pg 27.0-33.0 Mean Cor puscular Hemoglobin [place] ([facility]) mean corpuscular HGB conc 32.6 g/dL 32.0-36.5 Mean Corpu scular HGB Conc [place] ([facility]) platelet count, automated 252 10 150-450 Platelet C ount, Automated [place] ([facility]) mono % 6.8 % 0.0-5.0 Above high normal [place] % [place] ([facility]) lymph % 25.8 % 24.0-44.0 Lymph % [place] ([facility]) neutrophils % 64.1 % 36.0-66.0 Neutrophils % [place] ( [facility]) nucleated red blood cell % 0.0 % 0-0 Nucleated Red Blood Cell % [place] ([facility]) baso % 0.9 % 0.0-1.0 Baso % [place] ([facility]) eos % 1.9 % 0.0-3.0 Eos % [place] ([facility]) immature granulocyte % 0.5 % 0-3.0 Immature Gran ulocyte % [place] ([facility]) neutrophils # 2.7 10 1.5-8.5 Neutrophils # [place] ( [facility]) mono # 0.3 10 0.0-0.8 Baker # [place] ([facility]) lymph # 1.1 10 1.5-5.0 Below low normal Lymph # [place] ( [facility]) eos # 0.1 10 0.0-0.5 Eos # [place] ([facility]) baso # 0.0 10 0.0-0.2 Baso # [place] ([facility]) ID Date Data Source [id number] 03/18/2020 01:09:00 PM EDT [place] ([facility]) Name Value Range Interpretation Code Description Data Sharmila rce(s) Supporting Document(s) Hemoglobin A1c/Hemoglobin.total in Blood 4.9 % Hemoglobin a1C [place] ([facility]) estimated average glucose 94 mg/dL 60-110 Estimated Average Glucose [place] ([facility]) ID Date Data Source [id number] 03/18/2020 01:09:00 PM EDT [place] ([facility]) Name Value Range Interpretation Code Description Data Sharmila rce(s) Supporting Document(s) total 25(oh) vitamin D 25.2 NG/mL 30.0-100.0 Below low normal T otal 25(Oh) Vitamin D [place] ([facility]) ID Date Data Source [id number] 03/18/2020 01:09:00 PM EDT [place] ([facility]) Name Value Range Interpretation Code Description Data Sharmila rce(s) Supporting Document(s) thyroid stimulating hormone 2.710 uIU/mL 0.358-3.740 Thyroid Stimulating Hormone [place] ([facility]) free T4 0.90 NG/dL 0.76-1.46 Free T4 [facility] ([facility]) ID Date Data Source [id number] 03/18/2020 01:09:00 PM EDT [place] ([facility]) Name Value Range Interpretation Code Description Data Sharmila rce(s) Supporting Document(s) cholesterol level 193 mg/dL <200 Cholesterol Level [facility] ([facility]) HDL cholesterol 91 mg/dL >40 HDL Cholesterol ATHE NA ([facility]) triglycerides level 153 mg/dL <150 Above high normal Triglycer ides Level LASHONDA ([facility]) non-HDL-C 102 mg/dL Non-hdl-c LASHONDA ([facility]) Cholesterol in LDL [Mass/volume] in Serum or Plasma 71 mg/dL <1 00 LDL Cholesterol LASHONDA ([facility]) cholesterol risk ratio <5 Cholesterol R isk Ratio LASHONDA ([facility]) ID Date Data Source [id number] 03/18/2020 01:09:00 PM EDT LASHONDA ([facility]) Name Value Range Interpretation Code Description Data Sharmila rce(s) Supporting Document(s) blood urea nitrogen 21 mg/dL 7-18 Above high normal Blood Ure a Nitrogen LASHONDA ([facility]) glomerular filtration rate >51 Glomerula r Filtration Rate LASHONDA ([facility]) glucose, fasting 82 mg/dL 70-100 Glucose, Fasting AT [facility] ([facility]) creatinine for GFR 1.02 mg/dL 0.55-1.30 Creatinine for GF R LASHONDA ([facility]) sodium level 140 mEq/L 136-145 Sodium Level LASHONDA ([facility]) chloride level 108 mEq/L 98-107 Above high normal Chloride Level [place] ([facility]) carbon dioxide level 29 mEq/L 21-32 Carbon Dioxide Level LASHONDA ([facility]) potassium serum 5.4 mEq/L 3.5-5.1 Above high normal Potassium Ser um LASHONDA ([facility]) AST/SGOT 20 U/L 7-37 AST/SGOT L[facility]DA ([facility]) ALT/SGPT 22 U/L 12-78 ALT/SGPT LASHONDA ([facility]) calcium level 8.8 mg/dL 8.5-10.1 Calcium Level LASHONDA ( [facility]) anion gap 3 mEq/L 8-16 Below low normal Anion Gap LASHONDA ( [facility]) alkaline phosphatase 78 U/L 45-117 Alkaline Phosph atase LASHONDA ([facility]) bilirubin,total 0.3 mg/dL 0.2-1.0 Bilirubin,total ATHE NA ([facility]) albumin 3.7 gm/dL 3.2-5.2 Albumin LASHONDA ([facility]) total protein 6.8 gm/dL 6.4-8.2 Total Protein LASHONDA ( [facility]) albumin/globulin ratio 1.2-2.2 Albumin/globu luis carlos Ratio LASHONDA ([facility]) ID Date Data Source [id number] 03/18/2020 01:09:00 PM EDT LASHONDA ([facility]) Name Value Range Interpretation Code Description Data Sharmila rce(s) Supporting Document(s) white blood count 4.3 10 4.0-10.0 White Blood Count LASHONDA ([facility]) red blood count 4.22 10 4.00-5.40 Red Blood Count ATHE NA ([facility]) mean corpuscular volume 96.7 fL 80.0-96.0 Above high normal Mean Corpuscular Volume LASHONDA ([facility]) hemoglobin 13.3 g/dL 12.0-15.5 Hemoglobin LASHONDA ([facility]) mean corpuscular hemoglobin 31.5 pg 27.0-33.0 Mean Cor puscular Hemoglobin LASHONDA ([facility]) hematocrit 40.8 % 36.0-47.0 Hematocrit LASHONDA ([facility]) platelet count, automated 252 10 150-450 Platelet C ount, Automated LASHONDA ([facility]) neutrophils % 64.1 % 36.0-66.0 Neutrophils % LASHONDA ( [facility]) mean corpuscular HGB conc 32.6 g/dL 32.0-36.5 Mean Corpu scular HGB Conc [place] ([facility]) red cell distribution width 12.4 % 11.5-14.5 Red Cell Distribution Width L[place]DA ([facility]) baso % 0.9 % 0.0-1.0 Baso % LASHONDA ([facility]) mono % 6.8 % 0.0-5.0 Above high normal [place] % LASHONDA ([facility]) eos % 1.9 % 0.0-3.0 Eos % LASHONDA ([facility]) lymph % 25.8 % 24.0-44.0 Lymph % LASHONDA ([facility]) neutrophils # 2.7 10 1.5-8.5 Neutrophils # [place] ( [facility]) immature granulocyte % 0.5 % 0-3.0 Immature Gran ulocyte % LASHONDA ([facility]) nucleated red blood cell % 0.0 % 0-0 Nucleated Red Blood Cell % LASHONDA ([facility]) eos # 0.1 10 0.0-0.5 Eos # LASHONDA ([facility]) mono # 0.3 10 0.0-0.8 Baker # LASHONDA ([facility]) lymph # 1.1 10 1.5-5.0 Below low normal Lymph # LASHONDA ( [facility]) baso # 0.0 10 0.0-0.2 Baso # LASHONDA ([facility]) ID Date Data Source [id number] 03/18/2020 01:09:00 PM EDT LASHONDA ([facility]) Name Value Range Interpretation Code Description Data Sharmila rce(s) Supporting Document(s) estimated average glucose 94 mg/dL 60-110 Estimated Average Glucose [place] ([facility]) Hemoglobin A1c/Hemoglobin.total in Blood 4.9 % Hemoglobin a1C [place] ([facility]) ID Date Data Source [id number] 03/18/2020 01:09:00 PM EDT [place] ([facility]) Name Value Range Interpretation Code Description Data Sharmila rce(s) Supporting Document(s) total 25(oh) vitamin D 25.2 NG/mL 30.0-100.0 Below low normal T otal 25(Oh) Vitamin D [facility]) ID Date Data Source [id number] 03/18/2020 01:09:00 PM EDT LASHONDA ([facility]) Name Value Range Interpretation Code Description Data Sharmila rce(s) Supporting Document(s) thyroid stimulating hormone 2.710 uIU/mL 0.358-3.740 Thyroid Stimulating Hormone LASHONDA ([facility]) free T4 0.90 NG/dL 0.76-1.46 Free T4 [place] ([facility]) ID Date Data Source [id number] 03/18/2020 01:09:00 PM EDT LASHONDA ([facility]) Name Value Range Interpretation Code Description Data Sharmila rce(s) Supporting Document(s) triglycerides level 153 mg/dL <150 Above high normal Triglycer ides Level LASHONDA ([facility]) Cholesterol in LDL [Mass/volume] in Serum or Plasma 71 mg/dL <1 00 LDL Cholesterol LASHONDA ([facility]) non-HDL-C 102 mg/dL Non-hdl-c L[place]DA ([facility]) cholesterol risk ratio <5 Cholesterol R isk Ratio [place]DA ([facility]) HDL cholesterol 91 mg/dL >40 HDL Cholesterol ATHE NA ([facility]) cholesterol level 193 mg/dL <200 Cholesterol Level [place]DA ([facility]) ID Date Data Source [id number] 03/18/2020 01:09:00 PM EDT LASHONDA ([facility]) Name Value Range Interpretation Code Description Data Sharmila rce(s) Supporting Document(s) creatinine for GFR 1.02 mg/dL 0.55-1.30 Creatinine for GF R [place]DA ([facility]) glucose, fasting 82 mg/dL 70-100 Glucose, Fasting AT [facility]) sodium level 140 mEq/L 136-145 Sodium Level LASHONDA (No [facility]) glomerular filtration rate >51 Glomerula r Filtration Rate LASHONDA ([facility]) blood urea nitrogen 21 mg/dL 7-18 Above high normal Blood Ure a Nitrogen L[place]DA ([facility]) chloride level 108 mEq/L 98-107 Above high normal Chloride Level [place]DA ([facility]) potassium serum 5.4 mEq/L 3.5-5.1 Above high normal Potassium Ser um L[place]DA ([facility]) carbon dioxide level 29 mEq/L 21-32 Carbon Dioxide Level [place]DA ([facility]) anion gap 3 mEq/L 8-16 Below low normal Anion Gap L[place]DA ( [facility]) AST/SGOT 20 U/L 7-37 AST/SGOT [place] ([facility]) ALT/SGPT 22 U/L 12-78 ALT/SGPT L[place]DA ([facility]) calcium level 8.8 mg/dL 8.5-10.1 Calcium Level LASHONDA ( [facility]) alkaline phosphatase 78 U/L 45-117 Alkaline Phosph atase L[place]DA ([facility]) total protein 6.8 gm/dL 6.4-8.2 Total Protein L[place]DA ( [facility]) albumin 3.7 gm/dL 3.2-5.2 Albumin L[place]DA ([facility]) bilirubin,total 0.3 mg/dL 0.2-1.0 Bilirubin,total ATHE NA ([facility]) albumin/globulin ratio 1.2-2.2 Albumin/globu luis carlos Ratio LASHONDA ([facility]) ID Date Data Source [id number] 03/18/2020 01:09:00 PM EDT LASHONDA ([facility]) Name Value Range Interpretation Code Description Data Sharmila rce(s) Supporting Document(s) white blood count 4.3 10 4.0-10.0 White Blood Count L[place]DA ([facility]) hemoglobin 13.3 g/dL 12.0-15.5 Hemoglobin L[place]DA ([facility]) mean corpuscular volume 96.7 fL 80.0-96.0 Above high normal Mean Corpuscular Volume LASHONDA ([facility]) hematocrit 40.8 % 36.0-47.0 Hematocrit L[place]DA ([facility]) red blood count 4.22 10 4.00-5.40 Red Blood Count ATHE NA ([facility]) red cell distribution width 12.4 % 11.5-14.5 Red Cell Distribution Width L[place]DA ([facility]) mean corpuscular HGB conc 32.6 g/dL 32.0-36.5 Mean Corpu scular HGB Conc LASHONDA ([facility]) mean corpuscular hemoglobin 31.5 pg 27.0-33.0 Mean Cor puscular Hemoglobin LASHONDA ([facility]) mono % 6.8 % 0.0-5.0 Above high normal [place] % LASHONDA ([facility]) lymph % 25.8 % 24.0-44.0 Lymph % L[place]DA ([facility]) platelet count, automated 252 10 150-450 Platelet C ount, Automated L[place]DA ([facility]) neutrophils % 64.1 % 36.0-66.0 Neutrophils % L[place]DA ( [facility]) immature granulocyte % 0.5 % 0-3.0 Immature Gran ulocyte % L[place]DA ([facility]) baso % 0.9 % 0.0-1.0 Baso % [place]DA ([facility]) eos % 1.9 % 0.0-3.0 Eos % [place] ([facility]) nucleated red blood cell % 0.0 % 0-0 Nucleated Red Blood Cell % [place] ([facility]) lymph # 1.1 10 1.5-5.0 Below low normal Lymph # LASHONDA ( [facility]) mono # 0.3 10 0.0-0.8 [place] # [place] ([facility]) neutrophils # 2.7 10 1.5-8.5 Neutrophils # LASHONDA ( [facility]) eos # 0.1 10 0.0-0.5 Eos # [place]DA ([facility]) baso # 0.0 10 0.0-0.2 Baso # [place]DA ([facility]) ID Date Data Source [id number] 03/18/2020 01:09:00 PM EDT [place] ([facility]) Name Value Range Interpretation Code Description Data Sharmila rce(s) Supporting Document(s) estimated average glucose 94 mg/dL 60-110 Estimated Average Glucose [place] ([facility]) Hemoglobin A1c/Hemoglobin.total in Blood 4.9 % Hemoglobin a1C [place] ([facility]) ID Date Data Source [id number] 03/18/2020 01:09:00 PM EDT [place] ([facility]) Name Value Range Interpretation Code Description Data Sharmila rce(s) Supporting Document(s) total 25(oh) vitamin D 25.2 NG/mL 30.0-100.0 Below low normal T otal 25(Oh) Vitamin D [place] ([facility]) ID Date Data Source [id number] 03/18/2020 01:09:00 PM EDT LASH[place]DA ([facility]) Name Value Range Interpretation Code Description Data Sharmila rce(s) Supporting Document(s) free T4 0.90 NG/dL 0.76-1.46 Free T4 L[place]DA ([facility]) thyroid stimulating hormone 2.710 uIU/mL 0.358-3.740 Thyroid Stimulating Hormone LASHONDA ([facility]) ID Date Data Source [id number] 03/18/2020 01:09:00 PM EDT L[place]DA ([facility]) Name Value Range Interpretation Code Description Data Sharmila rce(s) Supporting Document(s) triglycerides level 153 mg/dL <150 Above high normal Triglycer ides Level L[place]ONDA ([facility]) cholesterol level 193 mg/dL <200 Cholesterol Level L[place]DA ([facility]) HDL cholesterol 91 mg/dL >40 [facility] Cholesterol in LDL [Mass/volume] in Serum or Plasma 71 mg/dL <1 00 LDL Cholesterol LASHONDA ([facility]) cholesterol risk ratio <5 Cholesterol R isk Ratio L[place]DA ([facility]) non-HDL-C 102 mg/dL Non-hdl-c [place] ([facility]) ID Date Data Source [id number] 03/18/2020 01:09:00 PM EDT LASH[place]DA ([facility]) Name Value Range Interpretation Code Description Data Sharmila rce(s) Supporting Document(s) glucose, fasting 82 mg/dL 70-100 Glucose, Fasting AT [facility] ([facility]) glomerular filtration rate >51 Glomerula r Filtration Rate LASHONDA ([facility]) creatinine for GFR 1.02 mg/dL 0.55-1.30 Creatinine for GF R [place] ([facility]) sodium level 140 mEq/L 136-145 Sodium Level LASHONDA ([facility]) blood urea nitrogen 21 mg/dL 7-18 Above high normal Blood Ure a Nitrogen LASHONDA ([facility]) chloride level 108 mEq/L 98-107 Above high normal Chloride Level [place]DA ([facility]) potassium serum 5.4 mEq/L 3.5-5.1 Above high normal Potassium Ser um [place]DA ([facility]) anion gap 3 mEq/L 8-16 Below low normal Anion Gap L[place]DA ( [facility]) carbon dioxide level 29 mEq/L 21-32 Carbon Dioxide Level [place] ([facility]) ALT/SGPT 22 U/L 12-78 ALT/SGPT [place] ([facility]) alkaline phosphatase 78 U/L 45-117 Alkaline Phosph atase [place]DA ([facility]) AST/SGOT 20 U/L 7-37 AST/SGOT [place] ([facility]) calcium level 8.8 mg/dL 8.5-10.1 Calcium Level [place]DA ( [facility]) albumin/globulin ratio 1.2-2.2 Albumin/globu luis carlos Ratio L[place]DA ([facility]) total protein 6.8 gm/dL 6.4-8.2 Total Protein [place] ( [facility]) bilirubin,total 0.3 mg/dL 0.2-1.0 Bilirubin,total ATHE ([facility]) albumin 3.7 gm/dL 3.2-5.2 Albumin [place]DA ([facility]) ID Date Data Source [id number] 03/18/2020 01:09:00 PM EDT [place]DA ([facility]) Name Value Range Interpretation Code Description Data Sharmila rce(s) Supporting Document(s) white blood count 4.3 10 4.0-10.0 White Blood Count [place] ([facility]) red blood count 4.22 10 4.00-5.40 Red Blood Count ATHE NA ([facility]) mean corpuscular hemoglobin 31.5 pg 27.0-33.0 Mean Cor puscular Hemoglobin [place]DA ([facility]) mean corpuscular volume 96.7 fL 80.0-96.0 Above high normal Mean Corpuscular Volume L[place]DA ([facility]) hematocrit 40.8 % 36.0-47.0 Hematocrit L[place]DA ([facility]) hemoglobin 13.3 g/dL 12.0-15.5 Hemoglobin L[place] ([facility]) red cell distribution width 12.4 % 11.5-14.5 Red Cell Distribution Width [place] ([facility]) mean corpuscular HGB conc 32.6 g/dL 32.0-36.5 Mean Corpu scular HGB Conc [place] ([facility]) platelet count, automated 252 10 150-450 Platelet C ount, Automated [place] ([facility]) neutrophils % 64.1 % 36.0-66.0 Neutrophils % [place] ( [facility]) eos % 1.9 % 0.0-3.0 Eos % [place] ([facility]) lymph % 25.8 % 24.0-44.0 Lymph % [place] ([facility]) mono % 6.8 % 0.0-5.0 Above high normal [place] % [place]DA ([facility]) baso % 0.9 % 0.0-1.0 Baso % [place] ([facility]) immature granulocyte % 0.5 % 0-3.0 Immature Gran ulocyte % L[place]DA ([facility]) nucleated red blood cell % 0.0 % 0-0 Nucleated Red Blood Cell % [place] ([facility]) neutrophils # 2.7 10 1.5-8.5 Neutrophils # [place]DA ( [facility]) lymph # 1.1 10 1.5-5.0 Below low normal Lymph # [place]DA ( [facility]) mono # 0.3 10 0.0-0.8 Baker # [place]DA ([facility]) eos # 0.1 10 0.0-0.5 Eos # [place] ([facility]) baso # 0.0 10 0.0-0.2 Baso # [place] ([facility]) ID Date Data Source [id number] 03/18/2020 01:09:00 PM EDT [place] ([facility]) Name Value Range Interpretation Code Description Data Sharmila rce(s) Supporting Document(s) Hemoglobin A1c/Hemoglobin.total in Blood 4.9 % Hemoglobin a1C [place] ([facility]) estimated average glucose 94 mg/dL 60-110 Estimated Average Glucose [place] ([facility]) ID Date Data Source [id number] 03/18/2020 01:09:00 PM EDT [place] ([facility]) Name Value Range Interpretation Code Description Data Sharmila rce(s) Supporting Document(s) total 25(oh) vitamin D 25.2 NG/mL 30.0-100.0 Below low normal T otal 25(Oh) Vitamin D [place] ([facility]) ID Date Data Source [id number] 03/18/2020 01:09:00 PM EDT [place] ([facility]) Name Value Range Interpretation Code Description Data Sharmila rce(s) Supporting Document(s) thyroid stimulating hormone 2.710 uIU/mL 0.358-3.740 Thyroid Stimulating Hormone [place]DA ([facility]) free T4 0.90 NG/dL 0.76-1.46 Free T4 [place] ([facility]) ID Date Data Source [id number] 03/18/2020 01:09:00 PM EDT [place] ([facility]) Name Value Range Interpretation Code Description Data Sharmila rce(s) Supporting Document(s) triglycerides level 153 mg/dL <150 Above high normal Triglycer ides Level [place]DA ([facility]) cholesterol level 193 mg/dL <200 Cholesterol Level [place] ([facility]) cholesterol risk ratio <5 Cholesterol R isk Ratio [place] ([facility]) Cholesterol in LDL [Mass/volume] in Serum or Plasma 71 mg/dL <1 00 LDL Cholesterol [place]DA ([facility]) non-HDL-C 102 mg/dL Non-hdl-c [place] ([facility]) HDL cholesterol 91 mg/dL >40 HDL Cholesterol ATHE ([facility]) ID Date Data Source [id number] 03/18/2020 01:09:00 PM EDT [place] ([facility]) Name Value Range Interpretation Code Description Data Sharmila rce(s) Supporting Document(s) glucose, fasting 82 mg/dL 70-100 Glucose, Fasting AT [facility] ([facility]) blood urea nitrogen 21 mg/dL 7-18 Above high normal Blood Ure a Nitrogen [place] ([facility]) potassium serum 5.4 mEq/L 3.5-5.1 Above high normal Potassium Ser um [place] ([facility]) creatinine for GFR 1.02 mg/dL 0.55-1.30 Creatinine for GF R [place] ([facility]) chloride level 108 mEq/L 98-107 Above high normal Chloride Level [place] ([facility]) glomerular filtration rate >51 Glomerula r Filtration Rate [place] ([facility]) sodium level 140 mEq/L 136-145 Sodium Level [place] ([facility]) carbon dioxide level 29 mEq/L 21-32 Carbon Dioxide Level [place] ([facility]) anion gap 3 mEq/L 8-16 Below low normal Anion Gap [place] ( [facility]) calcium level 8.8 mg/dL 8.5-10.1 Calcium Level [place] ( [facility]) AST/SGOT 20 U/L 7-37 AST/SGOT [place] ([facility]) bilirubin,total 0.3 mg/dL 0.2-1.0 Bilirubin,total ATHE ([facility]) total protein 6.8 gm/dL 6.4-8.2 Total Protein [place] ( [facility]) albumin 3.7 gm/dL 3.2-5.2 Albumin [place] ([facility]) alkaline phosphatase 78 U/L 45-117 Alkaline Phosph atase [place] ([facility]) ALT/SGPT 22 U/L 12-78 ALT/SGPT [place] ([facility]) albumin/globulin ratio 1.2-2.2 Albumin/globu luis carlos Ratio [place] ([facility]) ID Date Data Source [id number] 03/18/2020 01:09:00 PM EDT [place] ([facility]) Name Value Range Interpretation Code Description Data Sharmila rce(s) Supporting Document(s) white blood count 4.3 10 4.0-10.0 White Blood Count [place] ([facility]) red blood count 4.22 10 4.00-5.40 Red Blood Count ATHE NA ([facility]) hemoglobin 13.3 g/dL 12.0-15.5 Hemoglobin [place] ([facility]) mean corpuscular volume 96.7 fL 80.0-96.0 Above high normal Mean Corpuscular Volume [place] ([facility]) hematocrit 40.8 % 36.0-47.0 Hematocrit [place] ([facility]) platelet count, automated 252 10 150-450 Platelet C ount, Automated [place] ([facility]) mean corpuscular HGB conc 32.6 g/dL 32.0-36.5 Mean Corpu scular HGB Conc [place] ([facility]) mean corpuscular hemoglobin 31.5 pg 27.0-33.0 Mean Cor puscular Hemoglobin [place] ([facility]) red cell distribution width 12.4 % 11.5-14.5 Red Cell Distribution Width [place] ([facility]) lymph % 25.8 % 24.0-44.0 Lymph % [place] ([facility]) eos % 1.9 % 0.0-3.0 Eos % [place] ([facility]) mono % 6.8 % 0.0-5.0 Above high normal [place] % [place] ([facility]) neutrophils % 64.1 % 36.0-66.0 Neutrophils % [place] ( [facility]) neutrophils # 2.7 10 1.5-8.5 Neutrophils # [place] ( [facility]) immature granulocyte % 0.5 % 0-3.0 Immature Gran ulocyte % [place] ([facility]) baso % 0.9 % 0.0-1.0 Baso % [place] ([facility]) nucleated red blood cell % 0.0 % 0-0 Nucleated Red Blood Cell % [place] ([facility]) lymph # 1.1 10 1.5-5.0 Below low normal Lymph # [place] ( [facility]) mono # 0.3 10 0.0-0.8 Baker # [place] ([facility]) baso # 0.0 10 0.0-0.2 Baso # [place] ([facility]) eos # 0.1 10 0.0-0.5 Eos # [place] ([facility]) Procedure Social History Code Duration Value Status Description Data Source(s ) Smoking 03/28/2021 12:00:00 AM EDT Unknown if ever smoked comp leted Unknown if ever smoked [facility] ([facility]) Smoking 03/24/2021 12:00:00 AM EDT Unknown if ever smoked comp leted Unknown if ever smoked [facility] ([facility]) Smoking 03/11/2021 12:00:00 AM EDT Current Smoker completed Curre nt Smoker eCW1 ([facility]) Smoking 03/09/2021 12:00:00 AM EDT Current Smoker completed Curre nt Smoker eCW1 ([facility]) Smoking 03/09/2021 12:00:00 AM EDT Current Smoker completed Curre nt Smoker eCW1 ([facility]) Smoking 03/07/2021 12:00:00 AM EDT Current Smoker completed Curre nt Smoker eCW1 ([facility]) Smoking 03/07/2021 12:00:00 AM EDT Unknown if ever smoked comp leted Unknown if ever smoked [facility] ([facility]) Smoking 02/16/2021 12:00:00 AM EDT Unknown if ever smoked comp leted Unknown if ever smoked [facility] ([facility]) Smoking 02/04/2021 12:00:00 AM EDT Unknown if ever smoked comp leted Unknown if ever smoked [facility] ([facility]) Smoking 01/06/2021 12:00:00 AM EDT Unknown if ever smoked comp leted Unknown if ever smoked [facility] ([facility] [place]) Smoking 12/09/2020 12:00:00 AM EDT Unknown if ever smoked comp leted Unknown if ever smoked [facility] ([facility]) Smoking 12/08/2020 12:00:00 AM EDT Unknown if ever smoked comp leted Unknown if ever smoked [facility] ([facility]) Smoking 11/16/2020 12:00:00 AM EDT Unknown if ever smoked comp leted Unknown if ever smoked [facility] ([facility]) Smoking 11/10/2020 12:00:00 AM EDT Current Smoker completed Curre nt Smoker eCW1 ([facility]) Smoking 11/10/2020 12:00:00 AM EDT Current Smoker completed Curre nt Smoker eCW1 ([facility]) Smoking 11/10/2020 12:00:00 AM EDT Current Smoker completed Curre nt Smoker eCW1 ([facility]) Smoking 10/28/2020 12:00:00 AM EDT Unknown if ever smoked comp leted Unknown if ever smoked [facility] ([facility]) Smoking 10/14/2020 12:00:00 AM EDT Unknown if ever smoked comp leted Unknown if ever smoked [facility] ([facility]) Smoking 09/07/2020 12:00:00 AM EDT Unknown if ever smoked comp leted Unknown if ever smoked [facility] ([facility] [place]) Smoking 09/01/2020 12:00:00 AM EDT Unknown if ever smoked comp leted Unknown if ever smoked [facility] ([facility] [place]) Smoking 08/17/2020 12:00:00 AM EDT Unknown if ever smoked comp leted Unknown if ever smoked [facility] ([facility] [place]) Smoking 08/02/2020 12:00:00 AM EST Unknown if ever smoked comp leted Unknown if ever smoked [facility] ([facility]) Smoking 07/14/2020 12:00:00 AM EST Unknown if ever smoked comp leted Unknown if ever smoked [facility] ([facility]) Smoking 06/28/2020 12:00:00 AM EST Unknown if ever smoked comp leted Unknown if ever smoked [facility] ([facility]) Smoking 06/09/2020 12:00:00 AM EST Unknown if ever smoked comp leted Unknown if ever smoked [facility] ([facility]) Smoking 05/17/2020 12:00:00 AM EST Unknown if ever smoked comp leted Unknown if ever smoked [facility] ([facility]) Smoking 04/30/2020 12:00:00 AM EST Unknown if ever smoked comp leted Unknown if ever smoked [facility] ([facility]) Smoking 04/07/2020 12:00:00 AM EST Unknown if ever smoked comp leted Unknown if ever smoked [facility] ([facility]) Smoking 03/29/2020 12:00:00 AM EST Unknown if ever smoked comp leted Unknown if ever smoked [facility] ([facility]) Smoking 03/15/2020 12:00:00 AM EDT Unknown if ever smoked comp leted Unknown if ever smoked [facility] ([facility] [place]) Smoking 03/08/2020 12:00:00 AM EDT Unknown if ever smoked comp leted Unknown if ever smoked [facility] ([facility] [place]) Vital Signs ID Date Data Source UNK Name Value Range Interpretation Code Description Data Source(s) Body height 59 [in_i] 59 [in_i] [facility] ([facility]) 4'11" Body weight 57.607 kg 57.607 kg [facility] ([facility]) Systolic blood pressure 120 mm[Hg] 120 mm[Hg] [facility] Diastolic blood pressure 80 mm[Hg] 80 mm[Hg] [facility] ([facility]) Heart rate 82 /min 82 /min [facility] ([facility]) Oxygen saturation in Arterial blood by Pulse oximetry 99 % 99 % [facility] ([facility]) Body surface area Derived from formula 1.52 m2 1.52 m2 [facility] ([facility]) Body weight 127.00 [lb_av] 127.00 [lb_av] ROBERTEN T ([facility]) Body mass index (BMI) [Ratio] 25.6 kg/m2 25.6 k g/m2 [facility] ([facility], ) [place] body weight 100 [lb_av] 100 [lb_av] MEDEN T ([facility], ) Body height 60 [in_i] 60 [in_i] LASHONDA ([facility]) Heart rate 95 /min 95 /min eCW1 ([facility]) Body height 60.5 [in_i] 60.5 [in_i] eCW1 ([facility]) Body mass index (BMI) [Ratio] 23.05 kg/m2 23.05 kg/m2 eCW1 ([facility]) Body weight 120 [lb_av] 120 [lb_av] eCW1 ([facility]) Body weight 54.43 kg 54.43 kg W1 ([facility]) Respiratory rate 20 /min 20 /min eCW1 ([facility]) Body temperature 96.1 [degF] 96.1 [degF] eCW1 ( [facility]) Systolic blood pressure 132 mm[Hg] 132 mm[Hg] e CW1 ([facility]) Diastolic blood pressure 78 mm[Hg] 78 mm[Hg] eCW1 ([facility]) Diastolic blood pressure 88 mm[Hg] 88 mm[Hg] LASHONDA ([facility]) Body height 60 [in_i] 60 [in_i] LASHONDA ([facility]) Body mass index (BMI) [Ratio] 23.9 kg/m2 23.9 k g/m2 LASHONDA ([facility]) Systolic blood pressure 123 mm[Hg] 123 mm[Hg] A THENA ([facility]) Body weight 1956 [oz_av] 1956 [oz_av] LASHONDA ([facility]) Diastolic blood pressure 88 mm[Hg] 88 mm[Hg] LASHONDA ([facility]) Body height 60 [in_i] 60 [in_i] LASHONDA ([facility]) Body mass index (BMI) [Ratio] 23.9 kg/m2 23.9 k g/m2 LASHONDA ([facility]) Systolic blood pressure 123 mm[Hg] 123 mm[Hg] A THENA ([facility]) Body weight 1956 [oz_av] 1956 [oz_av] LASHONDA ([facility]) Diastolic blood pressure 85 mm[Hg] 85 mm[Hg] LASHONDA ([facility]) Systolic blood pressure 112 mm[Hg] 112 mm[Hg] A THENA ([facility]) Body height 57 [in_i] 57 [in_i] LASHONDA ([facility]) Diastolic blood pressure 85 mm[Hg] 85 mm[Hg] LASHONDA ([facility]) Body height 57 [in_i] 57 [in_i] LASHONDA ([facility]) Systolic blood pressure 112 mm[Hg] 112 mm[Hg] A THENA ([facility]) Diastolic blood pressure 85 mm[Hg] 85 mm[Hg] LASHONDA ([facility]) Body height 57 [in_i] 57 [in_i] LASHONDA ([facility]) Systolic blood pressure 112 mm[Hg] 112 mm[Hg] A THENA ([facility]) Body height 57 [in_i] 57 [in_i] LASHONDA ([facility]) Body height 57 [in_i] 57 [in_i] LASHONDA ([facility]) Body height 57 [in_i] 57 [in_i] LASHONDA ([facility]) Body height 57 [in_i] 57 [in_i] LASHONDA ([facility]) Body height 57 [in_i] 57 [in_i] LASHONDA ([facility]) Body height 57 [in_i] 57 [in_i] LASHONDA ([facility]) Diastolic blood pressure 95 mm[Hg] 95 mm[Hg] LASHONDA ([facility]) Body height 60 [in_i] 60 [in_i] LASHONDA ([facility]) Body mass index (BMI) [Ratio] 23.9 kg/m2 23.9 k g/m2 L[facility]DA ([facility]) Systolic blood pressure 137 mm[Hg] 137 mm[Hg] A THENA ([facility]) Body weight 1960 [oz_av] 1960 [oz_av] LASHONDA ([facility]) Diastolic blood pressure 95 mm[Hg] 95 mm[Hg] LASHONDA ([facility]) Body height 60 [in_i] 60 [in_i] LASHONDA ([facility]) Body mass index (BMI) [Ratio] 23.9 kg/m2 23.9 k g/m2 LASH[facility]DA ([facility]) Systolic blood pressure 137 mm[Hg] 137 mm[Hg] A THENA ([facility]) Body weight 1960 [oz_av] 1960 [oz_av] LASHONDA ([facility]) Body weight 1960 [oz_av] 1960 [oz_av] LASHONDA ([facility]) Diastolic blood pressure 95 mm[Hg] 95 mm[Hg] LASHONDA ([facility]) Body height 60 [in_i] 60 [in_i] LASHONDA ([facility]) Body mass index (BMI) [Ratio] 23.9 kg/m2 23.9 k g/m2 LASH[facility]DA ([facility]) Systolic blood pressure 137 mm[Hg] 137 mm[Hg] A THENA ([facility]) Body weight 122.50 [lb_av] 122.50 [lb_av] ISABELLA T ([facility], ) Body mass index (BMI) [Ratio] 24.7 kg/m2 24.7 k g/m2 THER[facility] ([facility], ) [place] body weight 100 [lb_av] 100 [lb_av] MEDEN T ([facility], ) Body surface area Derived from formula 1.50 m2 1.50 m2 THERESE ([facility], ) Body height 59 [in_i] 59 [in_i] THERESE ([facility], ) 4'11" Systolic blood pressure 186 mm[Hg] 186 mm[Hg] M VADIM ([facility], ) [employer]PER[employer] COKING Recheck: 156/90 Diastolic blood pressure 102 mm[Hg] 102 mm[Hg] THERESE ([facility], ) [employer] Recheck: 156/90 Heart rate 86 /min 86 /min THERESE ([facility], ) Oxygen saturation in Arterial blood by Pulse oximetry 98 % 98 % THERESE ([facility], ) Body weight 55.566 kg 55.566 kg THERESE ([facility], ) Body height 57 [in_i] 57 [in_i] LASHONDA ([facility]) Systolic blood pressure 140 mm[Hg] 140 mm[Hg] A THENA ([facility]) Diastolic blood pressure 97 mm[Hg] 97 mm[Hg] LASHONDA ([facility]) Diastolic blood pressure 97 mm[Hg] 97 mm[Hg] LASHONDA ([facility]) Body height 57 [in_i] 57 [in_i] LASHONDA ([facility]) Systolic blood pressure 140 mm[Hg] 140 mm[Hg] A THENA ([facility]) Diastolic blood pressure 97 mm[Hg] 97 mm[Hg] LASHONDA ([facility]) Body height 57 [in_i] 57 [in_i] LASHONDA ([facility]) Systolic blood pressure 140 mm[Hg] 140 mm[Hg] A THENA ([facility]) Diastolic blood pressure 97 mm[Hg] 97 mm[Hg] ALSHONDA ([facility]) Body height 57 [in_i] 57 [in_i] LASHONDA ([facility]) Systolic blood pressure 140 mm[Hg] 140 mm[Hg] A THENA ([facility]) Diastolic blood pressure 97 mm[Hg] 97 mm[Hg] LASHONDA ([facility]) Body height 57 [in_i] 57 [in_i] LASHONDA ([facility]) Systolic blood pressure 140 mm[Hg] 140 mm[Hg] A THENA ([facility]) Diastolic blood pressure 97 mm[Hg] 97 mm[Hg] LASHONDA ([facility]) Body height 57 [in_i] 57 [in_i] LASHONDA ([facility]) Systolic blood pressure 140 mm[Hg] 140 mm[Hg] A THENA ([facility]) Diastolic blood pressure 97 mm[Hg] 97 mm[Hg] LASHONDA ([facility]) Body height 57 [in_i] 57 [in_i] LASHONDA ([facility]) Systolic blood pressure 140 mm[Hg] 140 mm[Hg] A THENA ([facility]) Diastolic blood pressure 97 mm[Hg] 97 mm[Hg] LASHONDA ([facility]) Body height 57 [in_i] 57 [in_i] LASHONDA ([facility]) Systolic blood pressure 140 mm[Hg] 140 mm[Hg] A THENA ([facility]) Oxygen saturation in Arterial blood by Pulse oximetry 98 % 98 % MEDENT ([facility]) Body temperature 97.6 [degF] 97.6 [degF] MEDENT ([facility]) Body height 59 [in_i] 59 [in_i] [facility] ([facility]) 4'11" Body weight 128.00 [lb_av] 128.00 [lb_av] MEDEN T ([facility]) Body mass index (BMI) [Ratio] 25.9 kg/m2 25.9 k g/m2 [facility] ([facility]) [place] body weight 100 [lb_av] 100 [lb_av] MEDEN T ([facility]) Body weight 58.061 kg 58.061 kg [facility] ([facility]) Body surface area Derived from formula 1.53 m2 1.53 m2 [facility] ([facility]) Oxygen saturation in Arterial blood by Pulse oximetry 98 % 98 % [facility] ([facility]) Body temperature 97.6 [degF] 97.6 [degF] [facility]ENT ([facility]) Body height 59 [in_i] 59 [in_i] MEDENT ([facility]) 4'11" Body weight 128.00 [lb_av] 128.00 [lb_av] MEDEN T ([facility]) Body mass index (BMI) [Ratio] 25.9 kg/m2 25.9 k g/m2 [facility] ([facility]) [place] body weight 100 [lb_av] 100 [lb_av] MEDEN T ([facility]) Body weight 58.061 kg 58.061 kg [facility]ENT ([facility]) Body surface area Derived from formula 1.53 m2 1.53 m2 [facility] ([facility]) Systolic blood pressure 130 mm[Hg] 130 mm[Hg] M EDENT ([facility], ) Diastolic blood pressure 80 mm[Hg] 80 mm[Hg] MEDENT ([facility], ) Heart rate 86 /min 86 /min MEDENT ([facility], ) Body weight 124.8 [lb_av] 124.8 [lb_av] eCW1 ([facility]) Body height 60.5 [in_i] 60.5 [in_i] eCW1 ([facility]) Body mass index (BMI) [Ratio] 23.97 kg/m2 23.97 kg/m2 eCW1 ([facility]) Heart rate 83 /min 83 /min eCW1 ([facility]) Respiratory rate 20 /min 20 /min eCW1 ([facility]) Body temperature 97.6 [degF] 97.6 [degF] eCW1 ( [facility]) Systolic blood pressure 116 mm[Hg] 116 mm[Hg] e CW1 ([facility]) Diastolic blood pressure 72 mm[Hg] 72 mm[Hg] eCW1 ([facility]) Body height 60 [in_i] 60 [in_i] LASHONDA ([facility]) Body height 60 [in_i] 60 [in_i] LASHONDA ([facility]) Body height 60 [in_i] 60 [in_i] LASHONDA ([facility]) Body height 60 [in_i] 60 [in_i] LASHONDA ([facility]) Body height 60 [in_i] 60 [in_i] LASHONDA ([facility]) Body height 0.00 in Normal (applies to non-numeric resu lts) 0.00 in [facility]) Body weight Measured 0.00 lbs Normal (applies to n on-numeric results) 0.00 lbs [facility] ([facility]) Body mass index (BMI) [Ratio] 0.00 kg/m2 No rmal (applies to non-numeric results) 0.00 kg/m2 [facility] ([facility]) Systolic blood pressure 0 mm[Hg] Normal (applies t o non-numeric results) 0 mm[Hg] [facility] ([facility]) Diastolic blood pressure 0 mm[Hg] Normal (applies to non-numeric results) 0 mm[Hg] [facility] ([facility]) Body mass index (BMI) [Ratio] 27 kg/m2 27 kg/ m2 LASHONDA ([facility]) Systolic blood pressure 145 mm[Hg] 145 mm[Hg] A THENA ([facility]) Body weight 125 [lb_av] 125 [lb_av] LASHONDA ([facility]) Diastolic blood pressure 97 mm[Hg] 97 mm[Hg] LASHONDA ([facility]) Body height 57 [in_i] 57 [in_i] LASHONDA ([facility]) Diastolic blood pressure 97 mm[Hg] 97 mm[Hg] LASHONDA ([facility]) Body height 57 [in_i] 57 [in_i] LASHONDA ([facility]) Body mass index (BMI) [Ratio] 27 kg/m2 27 kg/ m2 LASHONDA ([facility]) Systolic blood pressure 145 mm[Hg] 145 mm[Hg] A THENA ([facility]) Body weight 125 [lb_av] 125 [lb_av] LASHONDA ([facility]) Body height 57 [in_i] 57 [in_i] LASHONDA ([facility]) Diastolic blood pressure 97 mm[Hg] 97 mm[Hg] LASHONDA ([facility]) Body weight 125 [lb_av] 125 [lb_av] LASHONDA ([facility]) Body mass index (BMI) [Ratio] 27 kg/m2 27 kg/ m2 LASHONDA ([facility]) Systolic blood pressure 145 mm[Hg] 145 mm[Hg] A THENA ([facility]) Diastolic blood pressure 97 mm[Hg] 97 mm[Hg] LASHONDA ([facility]) Body height 57 [in_i] 57 [in_i] LASHONDA ([facility]) Body mass index (BMI) [Ratio] 27 kg/m2 27 kg/ m2 LASHONDA ([facility]) Systolic blood pressure 145 mm[Hg] 145 mm[Hg] A THENA ([facility]) Body weight 125 [lb_av] 125 [lb_av] LASHONDA ([facility]) Diastolic blood pressure 97 mm[Hg] 97 mm[Hg] LASHONDA ([facility]) Body height 57 [in_i] 57 [in_i] LASHONDA ([facility]) Body mass index (BMI) [Ratio] 27 kg/m2 27 kg/ m2 LASHONDA ([facility]) Systolic blood pressure 145 mm[Hg] 145 mm[Hg] A THENA ([facility]) Body weight 125 [lb_av] 125 [lb_av] LASHONDA ([facility]) Diastolic blood pressure 97 mm[Hg] 97 mm[Hg] LASHONDA ([facility]) Body height 57 [in_i] 57 [in_i] LASHONDA ([facility]) Body mass index (BMI) [Ratio] 27 kg/m2 27 kg/ m2 LASHONDA ([facility]) Systolic blood pressure 145 mm[Hg] 145 mm[Hg] A THENA ([facility]) Body weight 125 [lb_av] 125 [lb_av] LASHONDA ([facility]) Diastolic blood pressure 97 mm[Hg] 97 mm[Hg] LASHONDA ([facility]) Body height 57 [in_i] 57 [in_i] LASHONDA ([facility]) Body mass index (BMI) [Ratio] 27 kg/m2 27 kg/ m2 LASHONDA ([facility]) Systolic blood pressure 145 mm[Hg] 145 mm[Hg] A THENA ([facility]) Body weight 125 [lb_av] 125 [lb_av] LASHONDA ([facility]) Diastolic blood pressure 97 mm[Hg] 97 mm[Hg] LASHONDA ([facility]) Body height 57 [in_i] 57 [in_i] LASHONDA ([facility]) Body mass index (BMI) [Ratio] 27 kg/m2 27 kg/ m2 LASHONDA ([facility]) Systolic blood pressure 145 mm[Hg] 145 mm[Hg] A THENA ([facility]) Body weight 125 [lb_av] 125 [lb_av] LASHONDA ([facility]) Diastolic blood pressure 97 mm[Hg] 97 mm[Hg] LASHONDA ([facility]) Body height 57 [in_i] 57 [in_i] LASHONDA ([facility]) Body mass index (BMI) [Ratio] 27 kg/m2 27 kg/ m2 LASHONDA ([facility]) Systolic blood pressure 145 mm[Hg] 145 mm[Hg] A THENA ([facility]) Body weight 125 [lb_av] 125 [lb_av] LASHONDA ([facility]) Diastolic blood pressure 97 mm[Hg] 97 mm[Hg] LASHONDA ([facility]) Body height 57 [in_i] 57 [in_i] LASHONDA ([facility]) Body mass index (BMI) [Ratio] 27 kg/m2 27 kg/ m2 LASHONDA ([facility]) Systolic blood pressure 145 mm[Hg] 145 mm[Hg] A THENA ([facility]) Body weight 125 [lb_av] 125 [lb_av] LASHONDA ([facility]) Body height 0.00 in Normal (applies to non-numeric resu lts) 0.00 in [facility]) Body weight Measured 0.00 lbs Normal (applies to n on-numeric results) 0.00 lbs [facility] ([facility]) Body mass index (BMI) [Ratio] 0.00 kg/m2 No rmal (applies to non-numeric results) 0.00 kg/m2 [facility] ([facility]) Systolic blood pressure 0 mm[Hg] Normal (applies t o non-numeric results) 0 mm[Hg] [facility] ([facility]) Diastolic blood pressure 0 mm[Hg] Normal (applies to non-numeric results) 0 mm[Hg] [facility] ([facility]) Diastolic blood pressure 99 mm[Hg] 99 mm[Hg] LASHONDA ([facility]) Body height 60 [in_i] 60 [in_i] LASHONDA ([facility]) Body mass index (BMI) [Ratio] 26.1 kg/m2 26.1 k g/m2 LASHONDA ([facility]) Systolic blood pressure 134 mm[Hg] 134 mm[Hg] A THENA ([facility]) Body weight 2136 [oz_av] 2136 [oz_av] LASHONDA ([facility]) Diastolic blood pressure 99 mm[Hg] 99 mm[Hg] LASHONDA ([facility]) Body height 60 [in_i] 60 [in_i] LASHONDA ([facility]) Body mass index (BMI) [Ratio] 26.1 kg/m2 26.1 k g/m2 LASHONDA ([facility]) Systolic blood pressure 134 mm[Hg] 134 mm[Hg] [facility] Body weight 2136 [oz_av] 2136 [oz_av] LASHONDA ([facility]) Diastolic blood pressure 99 mm[Hg] 99 mm[Hg] LASHONDA ([facility]) Body height 60 [in_i] 60 [in_i] LASHONDA ([facility]) Body mass index (BMI) [Ratio] 26.1 kg/m2 26.1 k g/m2 LASHONDA ([facility]) Systolic blood pressure 134 mm[Hg] 134 mm[Hg] A THENA ([facility]) Body weight 2136 [oz_av] 2136 [oz_av] LASHONDA ([facility]) Diastolic blood pressure 99 mm[Hg] 99 mm[Hg] LASHONDA ([facility]) Body height 60 [in_i] 60 [in_i] LASHONDA ([facility]) Body mass index (BMI) [Ratio] 26.1 kg/m2 26.1 k g/m2 LASHONDA ([facility]) Systolic blood pressure 134 mm[Hg] 134 mm[Hg] A THENA ([facility]) Body weight 2136 [oz_av] 2136 [oz_av] LASHONDA ([facility]) Diastolic blood pressure 99 mm[Hg] 99 mm[Hg] LASHONDA ([facility]) Body height 60 [in_i] 60 [in_i] LASHONDA ([facility]) Body mass index (BMI) [Ratio] 26.1 kg/m2 26.1 k g/m2 LASHONDA ([facility]) Systolic blood pressure 134 mm[Hg] 134 mm[Hg] A ZULMAA ([facility]) Body weight 2136 [oz_av] 2136 [oz_av] LASHONDA ([facility]) Diastolic blood pressure 99 mm[Hg] 99 mm[Hg] LASHONDA ([facility]) Body height 60 [in_i] 60 [in_i] LASHONDA ([facility]) Body mass index (BMI) [Ratio] 26.1 kg/m2 26.1 k g/m2 LASHONDA ([facility]) Systolic blood pressure 134 mm[Hg] 134 mm[Hg] A JAMAL ([facility]) Body weight 2136 [oz_av] 2136 [oz_av] LASHONDA ([facility]) Body height 0.00 in Normal (applies to non-numeric resu lts) 0.00 in [facility] ([facility]) Body weight Measured 0.00 lbs Normal (applies to n on-numeric results) 0.00 lbs [facility] ([facility]) Body mass index (BMI) [Ratio] 0.00 kg/m2 No rmal (applies to non-numeric results) 0.00 kg/m2 [facility] ([facility]) Systolic blood pressure 0 mm[Hg] Normal (applies t o non-numeric results) 0 mm[Hg] [facility] ([facility]) Diastolic blood pressure 0 mm[Hg] Normal (applies to non-numeric results) 0 mm[Hg] [facility] ([facility]) Body height 59 [in_i] 59 [in_i] THERESE ([facility], ) 4'11" Body weight 133.00 [lb_av] 133.00 [lb_av] ISABELLA T ([facility], ) Body mass index (BMI) [Ratio] 26.9 kg/m2 26.9 k g/m2 MEDWILLIAM ([facility], ) [place] body weight 100 [lb_av] 100 [lb_av] MEDEN T [facility] Body weight 60.329 kg 60.329 kg [facility] ([facility]) Body surface area Derived from formula 1.55 m2 1.55 m2 [facility] ([facility]) Body height 59 [in_i] 59 [in_i] [facility] ([facility]) 4'11" Body weight 133.00 [lb_av] 133.00 [lb_av] MEDEN T ([facility]) Body mass index (BMI) [Ratio] 26.9 kg/m2 26.9 k g/m2 [facility] ([facility]) [place] body weight 100 [lb_av] 100 [lb_av] MEDEN T ([facility]) Body weight 60.329 kg 60.329 kg [facility] ([facility]) Body surface area Derived from formula 1.55 m2 1.55 m2 [facility] ([facility]) Systolic blood pressure 140 mm[Hg] 140 mm[Hg] M EDENT ([facility]) Diastolic blood pressure 90 mm[Hg] 90 mm[Hg] [facility] ([facility]) Body height 60 [in_i] 60 [in_i] LASHONDA ([facility]) Diastolic blood pressure 89 mm[Hg] 89 mm[Hg] LASHONDA ([facility]) Body mass index (BMI) [Ratio] 25.8 kg/m2 25.8 k g/m2 LASHONDA ([facility]) Systolic blood pressure 131 mm[Hg] 131 mm[Hg] A [facility] ([facility]) Body weight 2116 [oz_av] 2116 [oz_av] LASHONDA ([facility]) Diastolic blood pressure 89 mm[Hg] 89 mm[Hg] LASHONDA ([facility]) Body height 60 [in_i] 60 [in_i] LASHONDA ([facility]) Body mass index (BMI) [Ratio] 25.8 kg/m2 25.8 k g/m2 LASHONDA ([facility]) Systolic blood pressure 131 mm[Hg] 131 mm[Hg] A [facility] ([facility]) Body weight 2116 [oz_av] 2116 [oz_av] LASHONDA ([facility]) Body weight 2116 [oz_av] 2116 [oz_av] LASHONDA ([facility]) Diastolic blood pressure 89 mm[Hg] 89 mm[Hg] LASHONDA ([facility]) Body height 60 [in_i] 60 [in_i] LASHONDA ([facility]) Body mass index (BMI) [Ratio] 25.8 kg/m2 25.8 k g/m2 LASHONDA ([facility]) Systolic blood pressure 131 mm[Hg] 131 mm[Hg] [facility] Diastolic blood pressure 89 mm[Hg] 89 mm[Hg] LASHONDA ([facility]) Body height 60 [in_i] 60 [in_i] LASHONDA ([facility]) Body mass index (BMI) [Ratio] 25.8 kg/m2 25.8 k g/m2 LASHONDA ([facility]) Systolic blood pressure 131 mm[Hg] 131 mm[Hg] A THENA ([facility]) Body weight 2116 [oz_av] 2116 [oz_av] LASHONDA ([facility]) Systolic blood pressure 131 mm[Hg] 131 mm[Hg] A THENA ([facility]) Body weight 2116 [oz_av] 2116 [oz_av] LASHONDA ([facility]) Diastolic blood pressure 89 mm[Hg] 89 mm[Hg] LASHONDA ([facility]) Body height 60 [in_i] 60 [in_i] LASHONDA ([facility]) Body mass index (BMI) [Ratio] 25.8 kg/m2 25.8 k g/m2 LASHONDA ([facility]) Diastolic blood pressure 89 mm[Hg] 89 mm[Hg] LASHONDA ([facility]) Body height 60 [in_i] 60 [in_i] LASHONDA ([facility]) Body mass index (BMI) [Ratio] 25.8 kg/m2 25.8 k g/m2 LASHONDA ([facility]) Systolic blood pressure 131 mm[Hg] 131 mm[Hg] A THENA ([facility]) Body weight 2116 [oz_av] 2116 [oz_av] LASHONDA ([facility]) Systolic blood pressure 131 mm[Hg] 131 mm[Hg] A THENA ([facility]) Diastolic blood pressure 89 mm[Hg] 89 mm[Hg] LASHONDA ([facility]) Body height 60 [in_i] 60 [in_i] LASHONDA ([facility]) Body mass index (BMI) [Ratio] 25.8 kg/m2 25.8 k g/m2 LASHONDA ([facility]) Body weight 2116 [oz_av] 2116 [oz_av] LASHONDA ([facility]) Diastolic blood pressure 89 mm[Hg] 89 mm[Hg] LASHONDA ([facility]) Body height 60 [in_i] 60 [in_i] LASHONDA ([facility]) Body mass index (BMI) [Ratio] 25.8 kg/m2 25.8 k g/m2 LASHONDA ([facility]) Systolic blood pressure 131 mm[Hg] 131 mm[Hg] A THENA ([facility]) Body weight 2116 [oz_av] 2116 [oz_av] LASHONDA ([facility]) Body height 60 [in_i] 60 [in_i] LASHONDA ([facility]) Body height 60 [in_i] 60 [in_i] LASHONDA ([facility]) Body height 60 [in_i] 60 [in_i] LASHONDA ([facility]) Body height 60 [in_i] 60 [in_i] LASHONDA ([facility]) Body height 60 [in_i] 60 [in_i] LASHONDA ([facility]) Body height 60 [in_i] 60 [in_i] LASHONDA ([facility]) Body height 60 [in_i] 60 [in_i] LASHONDA ([facility]) Body height 0.00 in Normal (applies to non-numeric resu lts) 0.00 in [facility] ([facility]) Body weight Measured 0.00 lbs Normal (applies to n on-numeric results) 0.00 lbs [facility] ([facility]) Body mass index (BMI) [Ratio] 0.00 kg/m2 No rmal (applies to non-numeric results) 0.00 kg/m2 [facility] ([facility]) Systolic blood pressure 0 mm[Hg] Normal (applies t o non-numeric results) 0 mm[Hg] [facility] ([facility]) Diastolic blood pressure 0 mm[Hg] Normal (applies to non-numeric results) 0 mm[Hg] [facility] ([facility]) Patient Treatment Plan of Care Planned Activity Planned Date Details Description Data Source (s) Fluconazole 150 MG Oral Tablet [Diflucan] 03/08/2021 12:00:00 AM ED T eCW1 ([facility]) Fluconazole 150 MG Oral Tablet [Diflucan] 03/08/2021 12:00:00 AM ED T eCW1 ([facility]) Fluconazole 150 MG Oral Tablet [Diflucan] 03/08/2021 12:00:00 AM ED T eCW1 ([facility]) Fluconazole 150 MG Oral Tablet [Diflucan] 03/08/2021 12:00:00 AM ED T eCW1 ([facility]) Metronidazole 500 MG Oral Tablet [Flagyl] 11/15/2020 12:00:00 AM ED T eCW1 ([facility]) Metronidazole 500 MG Oral Tablet [Flagyl] 11/15/2020 12:00:00 AM ED T eCW1 ([facility]) Metronidazole 500 MG Oral Tablet [Flagyl] 11/15/2020 12:00:00 AM ED T eCW1 ([facility]) Estrogens, Conjugated (FPC) 0.625 MG/ML Vaginal Cream [Premarin] 11/10/2020 12:00:00 AM EDT eCW1 ([facility]) Phenazopyridine hydrochloride 100 MG Oral Tablet [Pyri dium] 11/10/2020 12:00:00 AM EDT eCW1 ([facility]) Estrogens, Conjugated (FPC) 0.625 MG/ML Vaginal Cream [Premarin] 11/10/2020 12:00:00 AM EDT eCW1 ([facility]) Phenazopyridine hydrochloride 100 MG Oral Tablet [Pyri dium] 11/10/2020 12:00:00 AM EDT eCW1 ([facility]) Estrogens, Conjugated (FPC) 0.625 MG/ML Vaginal Cream [Premarin] 11/10/2020 12:00:00 AM EDT eCW1 ([facility]) Phenazopyridine hydrochloride 100 MG Oral Tablet [Pyri dium] 11/10/2020 12:00:00 AM EDT eCW1 ([facility]) Trazodone Hydrochloride 100 MG Oral Tablet LASHONDA ([facility]) Mirtazapine 7.5 MG Oral Tablet LASHONDA ([facility]) Mirtazapine 30 MG Oral Tablet LASHONDA ([facility]) Mirtazapine 15 MG Oral Tablet LASHONDA ([facility]) Trazodone Hydrochloride 100 MG Oral Tablet LASHONDA ([facility]) Mirtazapine 7.5 MG Oral Tablet LASHONDA ([facility]) Mirtazapine 30 MG Oral Tablet LASHONDA ([facility]) Mirtazapine 15 MG Oral Tablet LASHONDA ([facility]) Trulance 3 mg tablet TAKE ONE TABLET BY MOUTH EVERY DAY FOR IBS WITH CONSTIPATION LASHONDA ([facility]) Trazodone Hydrochloride 100 MG Oral Tablet LASHONDA ([facility]) trazodone LASHONDA ([facility]) tizanidine 4 MG Oral Tablet LASHONDA ([facility]) Sucralfate 1000 MG Oral Tablet LASHONDA ([facility]) quetiapine 50 MG Oral Tablet LASHONDA ([facility]) Phenazopyridine hydrochloride 100 MG Oral Tablet LASHONDA ([facility]) pantoprazole 40 MG Delayed Release Oral Tablet LASHONDA ([facility]) Naproxen 500 MG Oral Tablet LASHONDA ([facility]) Mirtazapine 7.5 MG Oral Tablet LASHONDA ([facility]) Mirtazapine 30 MG Oral Tablet LASHONDA ([facility]) Mirtazapine 15 MG Oral Tablet LASHONDA ([facility]) Metronidazole 500 MG Oral Tablet LASHONDA ([facility]) Lisinopril 10 MG Oral Tablet LASHONDA ([facility]) fluticasone 113 mcg-salmeterol 14 mcg/ac tuation breath activated powdr INHALE ONE PUFF BY MOUTH EVERY 12 HOURS LASHONDA ([facility]) citalopram LASHONDA ([facility]) buspirone hydrochloride 30 MG Oral Tablet LASHONDA ([facility]) buspirone LASHONDA ([facility]) Aspirin 81 MG Oral Tablet AT WALLY ([facility]) Acetaminophen 325 MG Oral Tablet LASHONDA ([facility]) Trulance 3 mg tablet TAKE ONE TABLET BY MOUTH EVERY DAY FOR IBS WITH CONSTIPATION LASHONDA ([facility]) Trazodone Hydrochloride 100 MG Oral Tablet LASHONDA ([facility]) trazodone LASHONDA ([facility]) tizanidine 4 MG Oral Tablet LASHONDA ([facility]) Sucralfate 1000 MG Oral Tablet LASHONDA ([facility]) quetiapine 50 MG Oral Tablet LASHONDA ([facility]) Phenazopyridine hydrochloride 100 MG Oral Tablet LASHONDA ([facility]) pantoprazole 40 MG Delayed Release Oral Tablet LASHONDA ([facility]) Naproxen 500 MG Oral Tablet LASHONDA ([facility]) Mirtazapine 7.5 MG Oral Tablet LASHONDA ([facility]) Mirtazapine 30 MG Oral Tablet LASHONDA ([facility]) Mirtazapine 15 MG Oral Tablet LASHONDA ([facility]) Metronidazole 500 MG Oral Tablet LASHONDA ([facility]) Lisinopril 10 MG Oral Tablet LASHONDA ([facility]) fluticasone 113 mcg-salmeterol 14 mcg/ac tuation breath activated powdr INHALE ONE PUFF BY MOUTH EVERY 12 HOURS LASHONDA ([facility]) citalopram LASHONDA ([facility]) buspirone hydrochloride 30 MG Oral Tablet LASHODNA ([facility]) buspirone LASHONDA ([facility]) Aspirin 81 MG Oral Tablet AT WALLY ([facility]) Acetaminophen 325 MG Oral Tablet LASHONDA ([facility]) Trazodone Hydrochloride 100 MG Oral Tablet LASHONDA ([facility]) Mirtazapine 7.5 MG Oral Tablet LASHONDA ([facility]) Mirtazapine 30 MG Oral Tablet LASHONDA ([facility]) Mirtazapine 15 MG Oral Tablet LASHONDA ([facility]) Mirtazapine 7.5 MG Oral Tablet LASHONDA ([facility]) Mirtazapine 30 MG Oral Tablet LASHONDA ([facility]) Mirtazapine 15 MG Oral Tablet LASHONDA ([facility]) Trazodone Hydrochloride 100 MG Oral Tablet LASHONDA ([facility]) Mirtazapine 7.5 MG Oral Tablet LASHONDA ([facility]) Mirtazapine 30 MG Oral Tablet LASHONDA ([facility]) Mirtazapine 15 MG Oral Tablet LASHONDA ([facility]) Trulance 3 mg tablet TAKE ONE TABLET BY MOUTH EVERY DAY FOR IBS WITH CONSTIPATION LASHONDA ([facility]) Trazodone Hydrochloride 100 MG Oral Tablet LASHONDA ([facility]) trazodone LASHONDA ([facility]) pantoprazole 40 MG Delayed Release Oral Tablet LASHONDA ([facility]) Mirtazapine 7.5 MG Oral Tablet LASHONDA ([facility]) Mirtazapine 30 MG Oral Tablet LASHONDA ([facility]) Mirtazapine 15 MG Oral Tablet LASHONDA ([facility]) Lisinopril 10 MG Oral Tablet LASHONDA ([facility]) citalopram LASHONDA ([facility]) buspirone LASHONDA ([facility]) Trulance 3 mg tablet TAKE ONE TABLET BY MOUTH EVERY DAY FOR IBS WITH CONSTIPATION LASHONDA ([facility]) Trazodone Hydrochloride 100 MG Oral Tablet LASHONDA ([facility]) trazodone LASHONDA ([facility]) pantoprazole 40 MG Delayed Release Oral Tablet LASHONDA ([facility]) Mirtazapine 7.5 MG Oral Tablet LASHONDA ([facility]) Mirtazapine 30 MG Oral Tablet LASHONDA ([facility]) Mirtazapine 15 MG Oral Tablet LASHONDA ([facility]) Lisinopril 10 MG Oral Tablet LASHONDA ([facility]) citalopram LASHONDA ([facility]) buspirone LASHONDA ([facility]) Trazodone Hydrochloride 100 MG Oral Tablet LASHONDA ([facility]) Mirtazapine 7.5 MG Oral Tablet LASHONDA ([facility]) Mirtazapine 30 MG Oral Tablet LASHONDA ([facility]) Mirtazapine 15 MG Oral Tablet LASHONDA ([facility]) Trulance 3 mg tablet TAKE ONE TABLET BY MOUTH EVERY DAY FOR IBS WITH CONSTIPATION LASHONDA ([facility]) Trazodone Hydrochloride 100 MG Oral Tablet LASHONDA ([facility]) trazodone LASHONDA ([facility]) pantoprazole 40 MG Delayed Release Oral Tablet LASHONDA ([facility]) Mirtazapine 7.5 MG Oral Tablet LASHONDA ([facility]) Mirtazapine 30 MG Oral Tablet LASHONDA ([facility]) Mirtazapine 15 MG Oral Tablet LASHONDA ([facility]) Lisinopril 10 MG Oral Tablet LASHONDA ([facility]) citalopram LASHONDA ([facility]) buspirone LASHONDA ([facility]) Trazodone Hydrochloride 100 MG Oral Tablet LASHONDA ([facility]) Mirtazapine 7.5 MG Oral Tablet LASHONDA ([facility]) Mirtazapine 30 MG Oral Tablet LASHONDA ([facility]) Mirtazapine 15 MG Oral Tablet LASHONDA ([facility]) Trazodone Hydrochloride 100 MG Oral Tablet LASHONDA ([facility]) Mirtazapine 7.5 MG Oral Tablet LASHONDA ([facility]) Mirtazapine 30 MG Oral Tablet LASHONDA ([facility]) Mirtazapine 15 MG Oral Tablet LASHONDA ([facility]) Trazodone Hydrochloride 100 MG Oral Tablet LASHONDA ([facility]) Mirtazapine 7.5 MG Oral Tablet LASHONDA ([facility]) Mirtazapine 30 MG Oral Tablet LASHONDA ([facility]) Mirtazapine 15 MG Oral Tablet LASHONDA ([facility]) Trulance 3 mg tablet TAKE ONE TABLET BY MOUTH EVERY DAY FOR IBS WITH CONSTIPATION LASHONDA ([facility]) Trazodone Hydrochloride 100 MG Oral Tablet LASHONDA ([facility]) trazodone LASHONDA ([facility]) Sucralfate 1000 MG Oral Tablet LASHONDA ([facility]) Phenazopyridine hydrochloride 100 MG Oral Tablet LASHONDA ([facility]) pantoprazole 40 MG Delayed Release Oral Tablet LASHONDA ([facility]) 24 HR Nicotine 0.875 MG/HR Transdermal Patch LASHONDA ([facility]) Naproxen 500 MG Oral Tablet LASHONDA ([facility]) Mirtazapine 7.5 MG Oral Tablet LASHONDA ([facility]) Mirtazapine 30 MG Oral Tablet LASHONDA ([facility]) Mirtazapine 15 MG Oral Tablet LASHONDA ([facility]) Metronidazole 500 MG Oral Tablet LASHONDA ([facility]) Lisinopril 10 MG Oral Tablet LASHONDA ([facility]) fluticasone 113 mcg-salmeterol 14 mcg/ac tuation breath activated powdr INHALE ONE PUFF BY MOUTH EVERY 12 HOURS LASHONDA ([facility]) citalopram LASHONDA ([facility]) buspirone hydrochloride 30 MG Oral Tablet LASHONDA ([facility]) buspirone LASHONDA ([facility]) Aspirin 81 MG Oral Tablet AT WALLY ([facility]) Trazodone Hydrochloride 100 MG Oral Tablet LASHONDA ([facility]) Mirtazapine 7.5 MG Oral Tablet LASHONDA ([facility]) Mirtazapine 30 MG Oral Tablet LASHONDA ([facility]) Mirtazapine 15 MG Oral Tablet LASHONDA ([facility]) Trazodone Hydrochloride 100 MG Oral Tablet LASHONDA ([facility])
== END 2021-05-03 19:32 | disposition left against medical advice (07) ==
LOC: M ED 19:07
DX: Z53.29 Procedure and treatment not carried out because of patient's decision for other reasons (principal)

== ENCOUNTER 2021-05-04 16:36 | Emergency (ER) | payer OTHER ==
[~2021-05-04] VITALS: Ht 154.9 cm; Wt 56.4 kg
[2021-05-04 16:37] VITALS: BP 116/78
== END 2021-05-04 20:20 | disposition home or self-care (01) ==
LOC: M ED 16:36
DX: S06.0X0A Concussion without loss of consciousness, initial encounter (principal); S00.83XA Contusion of other part of head, initial encounter; Y08.89XA Assault by other specified means, initial encounter; Y92.018 Other place in single-family (private) house as the place of occurrence of the external cause; I73.9 Peripheral vascular disease, unspecified; I10 Essential (primary) hypertension; J45.909 Unspecified asthma, uncomplicated; Z79.899 Other long term (current) drug therapy; Z79.82 Long term (current) use of aspirin; Z88.1 Allergy status to other antibiotic agents; Z91.040 Latex allergy status; Z91.048 Other nonmedicinal substance allergy status; F17.210 Nicotine dependence, cigarettes, uncomplicated; F12.20 Cannabis dependence, uncomplicated

== ENCOUNTER 2023-01-15 14:16 | Emergency (ER) | payer OTHER ==
[~2023-01-15] VITALS: Ht 144.8 cm; Wt 58.0 kg
[~2023-01-15 14:16] MED LIST changes: -GABA-283 PO; +GABA-284 PO
[2023-01-15 15:22] LABS: APPEARANCE, URINE CLEAR (CLEAR); BACTERIA, URINE AUTO NEGATIVE (NEGATIVE); BILIRUBIN, URINE AUTO NEGATIVE (NEGATIVE); BLOOD, URINE BLOOD 1+ (NEGATIVE); COLOR, URINE STRAW (YELLOW); GLUCOSE, URINE (UA) AUTO NEGATIVE (NEGATIVE); KETONE, URINE AUTO NEGATIVE (NEGATIVE); LEUKOCYTE ESTERASE, URINE AUTO NEGATIVE (NEGATIVE); NITRITE, URINE AUTO NEGATIVE (NEGATIVE); PROTEIN, URINE AUTO NEGATIVE (NEGATIVE); RBC, URINE AUTO 1 /HPF (0-3); SPECIFIC GRAVITY URINE AUTO 1.006 (1.002-1.035); SQUAMOUS EPITHELIAL CELL UR AU 1 /HPF (0-6); UROBILINOGEN, URINE AUTO 0.2 mg/dL (0.0-2.0); WBC, URINE AUTO 1 /HPF (0-3)
[2023-01-15 18:15] LABS: BASO % 0.5 % (0.0-1.0); EOS # 0.1 10^3/uL (0.0-0.5); EOS % 1.2 % (0.0-3.0); HEMATOCRIT 42.4 % (36.0-47.0); HEMOGLOBIN 14.3 g/dl (12.0-15.5); LYMPH # 1.5 10^3/uL (1.5-5.0); LYMPH % 26.3 % (24.0-44.0); MEAN CORPUSCULAR HEMOGLOBIN 31.6 pg (27.0-33.0); MEAN CORPUSCULAR HGB CONC 33.7 g/dl (32.0-36.5); MEAN CORPUSCULAR VOLUME 93.8 fl (80.0-96.0); MONO # 0.3 10^3/uL (0.0-0.8); NEUTROPHILS # 3.7 10^3/uL (1.5-8.5); NEUTROPHILS % 65.6 % (36.0-66.0); PLATELET COUNT, AUTOMATED 226 10^3/uL (150-450); RED BLOOD COUNT 4.52 10^6/uL (4.00-5.40); WHITE BLOOD COUNT 5.7 10^3/uL (4.0-10.0)
[2023-01-15 18:33] LABS: ALBUMIN 3.9 G/DL (3.2-5.2); ALKALINE PHOSPHATASE 97 U/L (46-116); ALT/SGPT 17 U/L (7.0-40); AST/SGOT 13 U/L (<34); BILIRUBIN,DIRECT 0.1 MG/DL (<0.4); BILIRUBIN,TOTAL 0.4 MG/DL (0.3-1.2); BLOOD UREA NITROGEN 11 MG/DL (9-23); CALCIUM LEVEL 9.2 MG/DL (8.5-10.1); CARBON DIOXIDE LEVEL 29 MMOL/L (20-31); CHLORIDE LEVEL 105 MMOL/L (98-107); CREATININE FOR GFR 0.87 MG/DL (0.55-1.30); GLOMERULAR FILTRATION RATE > 60.0 (>51); GLUCOSE, FASTING 111 MG/DL (60-100); POTASSIUM SERUM 3.9 MMOL/L (3.5-5.1); SODIUM LEVEL 140 MMOL/L (136-145); TOTAL PROTEIN 6.8 G/DL (5.7-8.2)
[2023-01-15] MEDS ORDERED: ACETAMINOPHEN 500 MG TAB PO ONE (18:35)
[2023-01-15] MEDS ORDERED: ISOVUE-370 76% 100ML VIAL As Ordered ONE (18:39)
[2023-01-15 19:01] LABS: CK-MB VALUE MASS 1.8 NG/ML (<3.6)
[2023-01-15 19:02] LABS: CPK CREATINE PHOSPHOKINASE 155 U/L (34-145); MB/CK RELATIVE INDEX 1.16 (< OR =4)
[2023-01-15] MEDS ORDERED: LISI20TA33 PO (20:12)
[2023-01-15] MEDS ORDERED: AMLO25TA PO (20:12)
[2023-01-15] MEDS ORDERED: PROT1TAB2 PO (20:14)
[2023-01-15] MEDS ORDERED: amLODIPine 5 MG TAB PO ONE (20:20)
[2023-01-15 20:28] VITALS: BP 159/101
[2023-01-15 21:13] VITALS: TEMP 96.5; O2SAT 100
[2023-01-15 21:17] VITALS: BP 168/102
== END 2023-01-15 21:19 | disposition home or self-care (01) ==
LOC: M ED 14:16
DX: R07.9 Chest pain, unspecified (principal); K92.2 Gastrointestinal hemorrhage, unspecified; Z76.0 Encounter for issue of repeat prescription; I12.9 Hypertensive chronic kidney disease with stage 1 through stage 4 chronic kidney disease, or unspecified chronic kidney disease; K21.9 Gastro-esophageal reflux disease without esophagitis; J45.909 Unspecified asthma, uncomplicated; J44.9 Chronic obstructive pulmonary disease, unspecified; F19.10 Other psychoactive substance abuse, uncomplicated; F32.A Depression, unspecified; F41.9 Anxiety disorder, unspecified; F17.200 Nicotine dependence, unspecified, uncomplicated; Z88.8 Allergy status to other drugs, medicaments and biological substances; Z91.040 Latex allergy status; Z79.82 Long term (current) use of aspirin; Z79.899 Other long term (current) drug therapy
CPT/HCPCS: 36415; 71046; 74177; 80048; 80076; 81001; 82550; 82553; 85025; 86850; 86900; 86901; 93005; 93041; 94760; 99285; Q9967

== ENCOUNTER → 2023-01-19 | Outpatient (REF) | payer OTHER ==
[~2023-01-19] MED LIST changes: +AMLO25TA PO
[2023-01-19 17:43] LABS: BASO # 0.1 10^3/uL (0.0-0.2); CHOLESTEROL LEVEL 208 MG/DL (<200); CHOLESTEROL RISK RATIO 2.73 (<5); EOS # 0.1 10^3/uL (0.0-0.5); EOS % 1.6 % (0.0-3.0); HDL CHOLESTEROL 76.1 MG/DL (>40); HEMATOCRIT 40.7 % (36.0-47.0); HEMOGLOBIN 13.7 g/dl (12.0-15.5); LDL CHOLESTEROL 105.9 MG/DL (<100); LYMPH # 1.4 10^3/uL (1.5-5.0); LYMPH % 27.8 % (24.0-44.0); MEAN CORPUSCULAR HEMOGLOBIN 31.9 pg (27.0-33.0); MEAN CORPUSCULAR HGB CONC 33.7 g/dl (32.0-36.5); MEAN CORPUSCULAR VOLUME 94.9 fl (80.0-96.0); MONO # 0.3 10^3/uL (0.0-0.8); MONO % 6.5 % (2.0-8.0); NEUTROPHILS # 3.2 10^3/uL (1.5-8.5); NEUTROPHILS % 62.5 % (36.0-66.0); NON-HDL-C 131.9 MG/DL; PLATELET COUNT, AUTOMATED 215 10^3/uL (150-450); RED BLOOD COUNT 4.29 10^6/uL (4.00-5.40); TRIGLYCERIDES LEVEL 130 MG/DL (<150); WHITE BLOOD COUNT 5.1 10^3/uL (4.0-10.0)
[2023-01-19 17:46] LABS: THYROID STIMULATING HORMONE 5.704 uIU/ML (0.55-4.78)
[2023-01-19 18:11] LABS: HIV 1&2 SCREEN NEGATIVE (NEGATIVE)
[2023-01-19 18:38] LABS: INR 0.96; PROTHROMBIN TIME 12.5 SECONDS (12.5-14.5)
[2023-01-23 12:10] LABS: HEPATITIS A IgG TOTAL Positive (Negative); HEPATITIS B CORE ANTIBODY IGG Negative (Negative); HEPATITIS C QUANTITATION HCV Not Detected IU/mL (.)
== END ==
LOC: M LAB REF 16:10
PROVIDERS: ATTEND Family Medicine Addiction Medicine
DX: Z00.00 Encounter for general adult medical examination without abnormal findings (principal); B18.2 Chronic viral hepatitis C

== ENCOUNTER 2023-05-04 10:58 | Emergency (ER) | payer OTHER ==
[~2023-05-04 10:58] MED LIST changes: -METH-1164 PO; -NAPR-837 PO
[2023-05-04] MEDS ORDERED: KETOROLAC 60MG 2ML VIAL IM ONE (12:55)
[2023-05-04] MEDS ORDERED: PRED20TA PO (13:01)
[2023-05-04] MEDS ORDERED: METH-1164 PO (13:01)
[2023-05-04] MEDS ORDERED: NAPR-837 PO (13:02)
[2023-05-04] MEDS ORDERED: predniSONE 20 MG TAB PO ONE (13:15)
[2023-05-04 13:21] VITALS: BP 173/87; TEMP 98.4; O2SAT 97
== END 2023-05-04 13:24 | disposition home or self-care (01) ==
LOC: M ED 10:58
DX: M54.30 Sciatica, unspecified side (principal); I10 Essential (primary) hypertension; N18.30 Chronic kidney disease, stage 3 unspecified; Z86.19 Personal history of other infectious and parasitic diseases; J45.909 Unspecified asthma, uncomplicated; Z79.82 Long term (current) use of aspirin; Z79.899 Other long term (current) drug therapy; Z88.1 Allergy status to other antibiotic agents; Z91.040 Latex allergy status; Z91.89 Other specified personal risk factors, not elsewhere classified
CPT/HCPCS: 99283; J7512

== ENCOUNTER → 2023-05-04 | Outpatient (CLI) | payer OTHER ==
[~2023-05-04] MED LIST changes: +METH-1164 PO; +NAPR-837 PO
== END ==
LOC: M LAB 10:33 → M RAD 10:33
PROVIDERS: ATTEND Nurse Practitioner Family
DX: M54.50 Low back pain, unspecified (principal); M47.816 Spondylosis without myelopathy or radiculopathy, lumbar region

== ENCOUNTER → 2023-05-10 | Outpatient (REF) | payer OTHER ==
[~2023-05-10] MED LIST changes: +METH-1164 PO; +NAPR-837 PO
[2023-05-10 11:59] LABS: BASO % 0.6 % (0.0-1.0); EOS % 0.6 % (0.0-3.0); HEMATOCRIT 39.7 % (36.0-47.0); HEMOGLOBIN 13.4 g/dl (12.0-15.5); LYMPH % 18.6 % (24.0-44.0); MEAN CORPUSCULAR HEMOGLOBIN 31.7 pg (27.0-33.0); MEAN CORPUSCULAR HGB CONC 33.8 g/dl (32.0-36.5); MEAN CORPUSCULAR VOLUME 93.9 fl (80.0-96.0); MONO # 0.6 10^3/uL (0.0-0.8); MONO % 12.1 % (2.0-8.0); NEUTROPHILS # 3.5 10^3/uL (1.5-8.5); NEUTROPHILS % 67.5 % (36.0-66.0); PLATELET COUNT, AUTOMATED 200 10^3/uL (150-450); RED BLOOD COUNT 4.23 10^6/uL (4.00-5.40); WHITE BLOOD COUNT 5.1 10^3/uL (4.0-10.0)
[2023-05-10 12:23] LABS: ALBUMIN 3.5 G/DL (3.2-5.2); ALKALINE PHOSPHATASE 69 U/L (46-116); ALT/SGPT 18 U/L (7.0-40); AST/SGOT 13 U/L (<34); BILIRUBIN,TOTAL 0.4 MG/DL (0.3-1.2); BLOOD UREA NITROGEN 25 MG/DL (9-23); CALCIUM LEVEL 9.6 MG/DL (8.5-10.1); CARBON DIOXIDE LEVEL 32 MMOL/L (20-31); CHLORIDE LEVEL 105 MMOL/L (98-107); CHOLESTEROL LEVEL 201 MG/DL (<200); CHOLESTEROL RISK RATIO 2.44 (<5); GLOMERULAR FILTRATION RATE > 60.0 (>51); GLUCOSE, FASTING 85 MG/DL (60-100); HDL CHOLESTEROL 82.2 MG/DL (>40); LDL CHOLESTEROL 90.6 MG/DL (<100); MAGNESIUM LEVEL 1.7 MG/DL (1.8-2.4); NON-HDL-C 118.8 MG/DL; POTASSIUM SERUM 4.4 MMOL/L (3.5-5.1); SODIUM LEVEL 141 MMOL/L (136-145); TOTAL PROTEIN 6.2 G/DL (5.7-8.2); TRIGLYCERIDES LEVEL 141 MG/DL (<150)
[2023-05-10 12:26] LABS: THYROID STIMULATING HORMONE 8.346 uIU/ML (0.55-4.78); TOTAL 25(OH) VITAMIN D 21.8 NG/ML (20.0-100.0)
== END ==
LOC: M LAB REF 11:44
PROVIDERS: ATTEND Nurse Practitioner Family
DX: Z13.29 Encounter for screening for other suspected endocrine disorder (principal); I10 Essential (primary) hypertension; Z13.1 Encounter for screening for diabetes mellitus; E78.5 Hyperlipidemia, unspecified

== ENCOUNTER → 2023-06-12 | Outpatient (REF) | payer OTHER ==
[2023-06-12 17:29] LABS: THYROID STIMULATING HORMONE 2.832 uIU/ML (0.55-4.78)
[2023-06-12 17:30] LABS: FREE T4 1.04 NG/DL (0.89-1.76)
[2023-06-12 17:32] LABS: THYROID PEROXIDASE ANTIBODY < 28.0 U/ML (<60.0)
== END ==
LOC: M LAB REF 16:18
PROVIDERS: ATTEND Nurse Practitioner Family
DX: R79.89 Other specified abnormal findings of blood chemistry (principal)

== ENCOUNTER → 2023-07-21 | Outpatient (CLI) | payer OTHER | LOC: M RAD 14:06 | PROVIDERS: ATTEND Nurse Practitioner Family | DX: M54.16 Radiculopathy, lumbar region (principal); M51.36 Other intervertebral disc degeneration, lumbar region ==

== ENCOUNTER → 2023-07-31 | Outpatient (CLI) | payer OTHER | LOC: M PAIN 14:45 | PROVIDERS: ATTEND Nurse Practitioner Family | DX: M79.18 Myalgia, other site (principal); G89.29 Other chronic pain; I10 Essential (primary) hypertension; K21.9 Gastro-esophageal reflux disease without esophagitis; J45.909 Unspecified asthma, uncomplicated; M54.50 Low back pain, unspecified; F32.A Depression, unspecified; G47.00 Insomnia, unspecified; F17.210 Nicotine dependence, cigarettes, uncomplicated; Z79.899 Other long term (current) drug therapy; Z88.8 Allergy status to other drugs, medicaments and biological substances; Z91.048 Other nonmedicinal substance allergy status ==

== ENCOUNTER 2023-09-13 09:36 | Day surgery (SDC) | payer OTHER ==
[~2023-09-13] VITALS: Ht 154.9 cm; Wt 50.3 kg
[~2023-09-13 09:36] MED LIST changes: +ALBU8.5H INH; +AMLO2.5T3 PO; +ASPI-226 PO; -BUSP10TA; +LEXA1TAB PO; +LIDOCAINE 2% 100MG/5ML SDV (FOR ANES.) As Ordered ONE; +MIRT-10 PO; -NAPR-885; +NAPR-885 PO; +NS 1,000 ML IV ONE; -QUET50TA4; +QUET50TA4 PO; +SYST1SOL OU; -TRAZ1TAB14; +VITA200032 PO; +propofoL 200 MG/20 ML VIAL As Ordered ONE
[2023-09-13] MEDS ORDERED: fentaNYL 100 MCG/2 ML INJECTION As Ordered ONE (10:55)
[2023-09-13 13:04] VITALS: BP 148/76; TEMP 97.3; O2SAT 99
== END 2023-09-13 12:50 | disposition home or self-care (01) ==
LOC: M OPP 09:36
PROVIDERS: ATTEND Internal Medicine Gastroenterology
DX: Z12.11 Encounter for screening for malignant neoplasm of colon (principal); Z86.010 Personal history of colon polyps; D12.5 Benign neoplasm of sigmoid colon; K63.5 Polyp of colon; K64.8 Other hemorrhoids; K29.80 Duodenitis without bleeding; R12 Heartburn; I12.9 Hypertensive chronic kidney disease with stage 1 through stage 4 chronic kidney disease, or unspecified chronic kidney disease; N18.30 Chronic kidney disease, stage 3 unspecified; F17.200 Nicotine dependence, unspecified, uncomplicated; Z79.51 Long term (current) use of inhaled steroids; Z79.82 Long term (current) use of aspirin; Z79.899 Other long term (current) drug therapy; Z88.6 Allergy status to analgesic agent; Z91.040 Latex allergy status; Z91.048 Other nonmedicinal substance allergy status
CPT/HCPCS: 43239; 45380; 45385; 88305; J3010

== ENCOUNTER → 2023-10-10 | Outpatient (CLI) | payer OTHER ==
[~2023-10-10] MED LIST changes: -LIDOCAINE 2% 100MG/5ML SDV (FOR ANES.) As Ordered ONE; -NS 1,000 ML IV ONE; -propofoL 200 MG/20 ML VIAL As Ordered ONE
== END ==
LOC: M PAIN 15:00
PROVIDERS: ATTEND Anesthesiology
DX: M54.50 Low back pain, unspecified (principal); M79.10 Myalgia, unspecified site; M79.18 Myalgia, other site; G89.29 Other chronic pain; I10 Essential (primary) hypertension; K21.9 Gastro-esophageal reflux disease without esophagitis; J45.909 Unspecified asthma, uncomplicated; B18.2 Chronic viral hepatitis C; F32.A Depression, unspecified; G47.00 Insomnia, unspecified; F17.210 Nicotine dependence, cigarettes, uncomplicated; Z79.899 Other long term (current) drug therapy; Z88.8 Allergy status to other drugs, medicaments and biological substances; Z91.048 Other nonmedicinal substance allergy status

== ENCOUNTER → 2023-12-13 | Outpatient (REF) | payer OTHER ==
[~2023-12-13] MED LIST changes: +FLUO-365 PO; -FLUO20CA22 PO
[2023-12-13 17:34] LABS: BASO # 0.1 10^3/uL (0.0-0.2); BASO % 0.9 % (0.0-1.0); EOS # 0.1 10^3/uL (0.0-0.5); EOS % 1.8 % (0.0-3.0); HEMATOCRIT 40.2 % (36.0-47.0); HEMOGLOBIN 13.5 g/dl (12.0-15.5); LYMPH # 1.6 10^3/uL (1.5-5.0); LYMPH % 27.8 % (24.0-44.0); MEAN CORPUSCULAR HEMOGLOBIN 31.8 pg (27.0-33.0); MEAN CORPUSCULAR HGB CONC 33.6 g/dl (32.0-36.5); MEAN CORPUSCULAR VOLUME 94.6 fl (80.0-96.0); MONO # 0.4 10^3/uL (0.0-0.8); MONO % 6.4 % (2.0-8.0); NEUTROPHILS # 3.5 10^3/uL (1.5-8.5); NEUTROPHILS % 62.7 % (36.0-66.0); PLATELET COUNT, AUTOMATED 249 10^3/uL (150-450); RED BLOOD COUNT 4.25 10^6/uL (4.00-5.40); WHITE BLOOD COUNT 5.6 10^3/uL (4.0-10.0)
[2023-12-13 17:35] LABS: ALBUMIN 3.6 G/DL (3.2-5.2); BILIRUBIN,TOTAL 0.4 MG/DL (0.3-1.2); CALCIUM LEVEL 10.6 MG/DL (8.5-10.1); CHOLESTEROL RISK RATIO 3.1 (<5); CREATININE FOR GFR 1.01 MG/DL (0.55-1.30); GLOMERULAR FILTRATION RATE 59.9 (>51); HDL CHOLESTEROL 58.2 MG/DL (>40); LDL CHOLESTEROL 99.6 MG/DL (<100); MAGNESIUM LEVEL 1.9 MG/DL (1.8-2.4); NON-HDL-C 122.8 MG/DL; POTASSIUM SERUM 4.2 MMOL/L (3.5-5.1); TOTAL PROTEIN 6.2 G/DL (5.7-8.2)
[2023-12-13 17:39] LABS: FREE T4 0.9 NG/DL (0.89-1.76)
[2023-12-13 17:40] LABS: THYROID STIMULATING HORMONE 2.002 uIU/ML (0.55-4.78)
== END ==
LOC: M LAB REF 16:45
PROVIDERS: ATTEND Family Medicine Addiction Medicine
DX: E78.5 Hyperlipidemia, unspecified (principal); I10 Essential (primary) hypertension; R94.6 Abnormal results of thyroid function studies

== ENCOUNTER 2023-12-18 12:50 | Emergency (ER) | payer OTHER ==
[~2023-12-18] VITALS: Ht 152.4 cm; Wt 49.1 kg
[2023-12-18 12:54] VITALS: BP 170/80; TEMP 97; O2SAT 100
[2023-12-18] MEDS: methocarbamoL 500 MG TAB PO ONE (14:11)
[2023-12-18] MEDS: NAPROXEN 250 MG TAB PO ONE (14:12)
[2023-12-18] MEDS: predniSONE 20 MG TAB PO ONE (14:12)
[2023-12-18] MEDS ORDERED: METH-1164 PO (14:18)
[2023-12-18] MEDS ORDERED: PRED20TA PO (14:18)
== END 2023-12-18 14:34 | disposition home or self-care (01) ==
LOC: M ED 12:50
DX: M54.31 Sciatica, right side (principal); I13.10 Hypertensive heart and chronic kidney disease without heart failure, with stage 1 through stage 4 chronic kidney disease, or unspecified chronic kidney disease; B19.20 Unspecified viral hepatitis C without hepatic coma; Z91.048 Other nonmedicinal substance allergy status; Z91.040 Latex allergy status; Z88.8 Allergy status to other drugs, medicaments and biological substances; Z79.899 Other long term (current) drug therapy; M25.511 Pain in right shoulder
CPT/HCPCS: 73030; 99282; J7512

== ENCOUNTER → 2023-12-18 | Outpatient (CLI) | payer OTHER | LOC: M RAD 12:20 | PROVIDERS: ATTEND Nurse Practitioner Family | DX: M25.511 Pain in right shoulder (principal) ==

== ENCOUNTER → 2024-01-01 | Outpatient (CLI) | payer OTHER ==
[~2024-01-01] MED LIST changes: +TRIAMCINOLONE ACETONIDE SUSP 40MG/ML 1ML VIAL As Ordered ONE
== END ==
LOC: M PAIN 16:30
PROVIDERS: ATTEND Anesthesiology
DX: M79.18 Myalgia, other site (principal); I10 Essential (primary) hypertension; K21.9 Gastro-esophageal reflux disease without esophagitis; J45.909 Unspecified asthma, uncomplicated; M54.50 Low back pain, unspecified; G89.29 Other chronic pain; F32.A Depression, unspecified; G47.00 Insomnia, unspecified; F17.210 Nicotine dependence, cigarettes, uncomplicated; Z79.899 Other long term (current) drug therapy; Z88.8 Allergy status to other drugs, medicaments and biological substances; Z91.048 Other nonmedicinal substance allergy status
CPT/HCPCS: 20552; J0665; J3301

== ENCOUNTER 2024-01-09 19:39 | Emergency (ER) | payer OTHER ==
[~2024-01-09] VITALS: Ht 160 cm; Wt 50.0 kg
[~2024-01-09 19:39] MED LIST changes: -TRIAMCINOLONE ACETONIDE SUSP 40MG/ML 1ML VIAL As Ordered ONE
[2024-01-09 20:21] LABS: BASO % 0.3 % (0.0-1.0); EOS % 0.3 % (0.0-3.0); HEMATOCRIT 33.6 % (36.0-47.0); HEMOGLOBIN 11.7 g/dl (12.0-15.5); LYMPH # 1.4 10^3/uL (1.5-5.0); LYMPH % 19.4 % (24.0-44.0); MEAN CORPUSCULAR HGB CONC 34.8 g/dl (32.0-36.5); MEAN CORPUSCULAR VOLUME 91.8 fl (80.0-96.0); MONO # 0.6 10^3/uL (0.0-0.8); MONO % 8.1 % (2.0-8.0); NEUTROPHILS # 5.1 10^3/uL (1.5-8.5); NEUTROPHILS % 71.6 % (36.0-66.0); PLATELET COUNT, AUTOMATED 206 10^3/uL (150-450); RED BLOOD COUNT 3.66 10^6/uL (4.00-5.40); WHITE BLOOD COUNT 7.1 10^3/uL (4.0-10.0)
[2024-01-09] MEDS: LORazepam 2 MG/ML 1ML VIAL IV STA (20:38)
[2024-01-09] MEDS: NS 1,000 ML IV SCH (20:38)
[2024-01-09] MEDS: diphenhydrAMINE 50MG/ML VIAL IV ONE (20:41)
[2024-01-09 20:47] LABS: ETHYL ALCOHOL (ETHANOL) 0.004 % (0.000-0.010)
[2024-01-09 20:49] LABS: SALICYLATE LEVEL < 3.0 MG/DL (<30)
[2024-01-09 20:51] LABS: THYROID STIMULATING HORMONE 4.255 uIU/ML (0.55-4.78)
[2024-01-09 21:07] LABS: HCG, SERUM QUALITATIVE NEGATIVE (NEGATIVE)
[2024-01-09 21:08] LABS: BARBITURATES URINE NEGATIVE (NEGATIVE); COCAINE METABOLITE URINE NEGATIVE (NEGATIVE); METHADONE URINE NEGATIVE (NEGATIVE); OPIATES URINE NEGATIVE (NEGATIVE); PHENCYCLIDINE URINE NEGATIVE (NEGATIVE)
[2024-01-09 21:09] LABS: BENZODIAZEPINES URINE NEGATIVE (NEGATIVE)
[2024-01-09 21:20] LABS: AMPHETAMINES LEVEL URINE POSITIVE (NEGATIVE); CANNABINOIDS URINE POSITIVE (NEGATIVE)
[2024-01-09 21:20] LABS: ALBUMIN 3.7 G/DL (3.2-5.2); ALKALINE PHOSPHATASE 81 U/L (46-116); ALT/SGPT 84 U/L (7.0-40); AST/SGOT 83 U/L (<34); BILIRUBIN,DIRECT 0.2 MG/DL (<0.4); BILIRUBIN,TOTAL 0.8 MG/DL (0.3-1.2); BLOOD UREA NITROGEN 40 MG/DL (9-23); CALCIUM LEVEL 8.9 MG/DL (8.5-10.1); CARBON DIOXIDE LEVEL 26 MMOL/L (20-31); CHLORIDE LEVEL 107 MMOL/L (98-107); CPK CREATINE PHOSPHOKINASE 2047 U/L (34-145); CREATININE FOR GFR 1.16 MG/DL (0.55-1.30); GLOMERULAR FILTRATION RATE 51.1 (>51); GLUCOSE, FASTING 87 MG/DL (60-100); POTASSIUM SERUM 3.9 MMOL/L (3.5-5.1); SODIUM LEVEL 140 MMOL/L (136-145); TOTAL PROTEIN 6.1 G/DL (5.7-8.2)
[2024-01-09] MEDS: NS 1,500 ML in IV 1 EA IV ONE (21:47)
[2024-01-09 22:53] LABS: CK-MB VALUE MASS 75.4 NG/ML (<3.6); MB/CK RELATIVE INDEX 3.68 (< OR =4)
[2024-01-10] MEDS ORDERED: NORV5TAB PO (01:45)
[2024-01-10] MEDS: amLODIPine 5 MG TAB PO ONE (02:21)
[2024-01-10 03:34] VITALS: BP 210/106
[2024-01-10] MEDS: CARVedilol 6.25 MG TAB PO ONE (03:34)
[2024-01-10 09:24] VITALS: O2SAT 96
[2024-01-10] MEDS ORDERED: DULO1CAP5 PO (10:34)
[2024-01-10] MEDS ORDERED: MIRT1TAB PO (10:34)
[2024-01-10] MEDS ORDERED: IBUP-1022 PO (10:34)
[2024-01-10] MEDS ORDERED: HOME MED LIST COMPLETE! XX SCH (10:35)
[2024-01-10 11:51] VITALS: BP 188/101; TEMP 98.2
== END 2024-01-10 12:12 | disposition home or self-care (01) ==
LOC: M ED 19:39
DX: F15.10 Other stimulant abuse, uncomplicated (principal); R44.2 Other hallucinations; I10 Essential (primary) hypertension; I45.10 Unspecified right bundle-branch block; F19.10 Other psychoactive substance abuse, uncomplicated; F10.90 Alcohol use, unspecified, uncomplicated; F17.200 Nicotine dependence, unspecified, uncomplicated; Z79.52 Long term (current) use of systemic steroids; Z79.1 Long term (current) use of non-steroidal anti-inflammatories (NSAID); Z79.899 Other long term (current) drug therapy
CPT/HCPCS: 71045; 80048; 80076; 80143; 80307; 81001; 81002; 82077; 82550; 82553; 84443; 84484; 84703; 85025; 87086; 93005; 93041; 94760; 96374; 96375; 99285; J1200; J2060

== ENCOUNTER → 2024-04-14 | Outpatient (CLI) | payer OTHER ==
[~2024-04-14] MED LIST changes: +DULO1CAP5 PO; +GABA-1172 PO; -GABA-282 PO
== END ==
LOC: M PAIN 10:45
PROVIDERS: ATTEND Nurse Practitioner Family
DX: M79.18 Myalgia, other site (principal); G89.29 Other chronic pain; M54.50 Low back pain, unspecified; I10 Essential (primary) hypertension; K21.9 Gastro-esophageal reflux disease without esophagitis; J45.909 Unspecified asthma, uncomplicated; F32.A Depression, unspecified; G47.00 Insomnia, unspecified; F17.210 Nicotine dependence, cigarettes, uncomplicated; Z79.899 Other long term (current) drug therapy; Z88.8 Allergy status to other drugs, medicaments and biological substances; Z91.048 Other nonmedicinal substance allergy status

== ENCOUNTER → 2024-05-19 | Outpatient (REF) | payer OTHER ==
[~2024-05-19] MED LIST changes: -ADV250INH INH; +ADVA1AER9 INH
[2024-05-20 13:52] LABS: APPEARANCE, URINE CLEAR (CLEAR); BACTERIA, URINE AUTO NEGATIVE (NEGATIVE); BILIRUBIN, URINE AUTO NEGATIVE (NEGATIVE); BLOOD, URINE BLOOD 1+ (NEGATIVE); COLOR, URINE COLORLESS (YELLOW); GLUCOSE, URINE (UA) AUTO NEGATIVE (NEGATIVE); KETONE, URINE AUTO NEGATIVE (NEGATIVE); LEUKOCYTE ESTERASE, URINE AUTO NEGATIVE (NEGATIVE); MUCUS, URINE SMALL (NEGATIVE); NITRITE, URINE AUTO NEGATIVE (NEGATIVE); PROTEIN, URINE AUTO NEGATIVE (NEGATIVE); RBC, URINE AUTO 0 /HPF (0-3); SPECIFIC GRAVITY URINE AUTO 1.002 (1.002-1.035); SQUAMOUS EPITHELIAL CELL UR AU 0 /HPF (0-6); UROBILINOGEN, URINE AUTO 0.2 mg/dL (0.0-2.0); WBC, URINE AUTO 0 /HPF (0-3)
== END ==
LOC: M LAB REF 12:56
PROVIDERS: ATTEND Nurse Practitioner Family
DX: R10.9 Unspecified abdominal pain (principal)

== ENCOUNTER 2024-07-04 15:37 | Emergency (ER) | payer OTHER ==
[~2024-07-04] VITALS: Ht 149.9 cm; Wt 42.7 kg
[2024-07-04] MEDS: LORazepam 2 MG/ML 1ML VIAL IV STA (17:35)
[2024-07-04 17:39] LABS: BASO % 0.6 % (0.0-1.0); EOS % 0.6 % (0.0-3.0); HEMATOCRIT 38.5 % (36.0-47.0); HEMOGLOBIN 12.9 g/dl (12.0-15.5); LYMPH # 1.4 10^3/uL (1.5-5.0); LYMPH % 29.3 % (24.0-44.0); MEAN CORPUSCULAR HEMOGLOBIN 30.7 pg (27.0-33.0); MEAN CORPUSCULAR HGB CONC 33.5 g/dl (32.0-36.5); MEAN CORPUSCULAR VOLUME 91.7 fl (80.0-96.0); MONO # 0.3 10^3/uL (0.0-0.8); MONO % 7.2 % (2.0-8.0); NEUTROPHILS # 2.9 10^3/uL (1.5-8.5); NEUTROPHILS % 61.9 % (36.0-66.0); PLATELET COUNT, AUTOMATED 217 10^3/uL (150-450); WHITE BLOOD COUNT 4.7 10^3/uL (4.0-10.0)
[2024-07-04 18:06] LABS: LIPASE 40 U/L (12-53)
[2024-07-04 18:08] LABS: ALBUMIN 3.9 G/DL (3.2-5.2); ALKALINE PHOSPHATASE 104 U/L (35-104); ALT/SGPT 32 U/L (7.0-40); AST/SGOT 39 U/L (<34); BILIRUBIN,DIRECT 0.1 MG/DL (<0.4); BILIRUBIN,TOTAL 0.6 MG/DL (0.3-1.2); BLOOD UREA NITROGEN 31 MG/DL (9-23); CALCIUM LEVEL 8.9 MG/DL (8.5-10.1); CARBON DIOXIDE LEVEL 30 MMOL/L (20-31); CHLORIDE LEVEL 103 MMOL/L (98-107); CK-MB VALUE MASS 19.3 NG/ML (<3.6); CPK CREATINE PHOSPHOKINASE 884 U/L (34-145); CREATININE FOR GFR 0.83 MG/DL (0.55-1.30); GLOMERULAR FILTRATION RATE > 60.0 (>51); GLUCOSE, FASTING 75 MG/DL (60-100); MB/CK RELATIVE INDEX 2.18 (< OR =4); POTASSIUM SERUM 3.7 MMOL/L (3.5-5.1); SODIUM LEVEL 142 MMOL/L (136-145); TOTAL PROTEIN 6.9 G/DL (5.7-8.2)
[2024-07-04] MEDS ORDERED: ISOVUE-370 76% 100ML VIAL As Ordered ONE (18:17)
[2024-07-04 18:56] LABS: CK-MB VALUE MASS 18.1 NG/ML (<3.6)
[2024-07-04 18:58] LABS: MB/CK RELATIVE INDEX 2.36 (< OR =4)
[2024-07-04] MEDS: LABETALOL 100MG/20ML VIAL IV STA ×2 (19:40→21:56)
[2024-07-04] MEDS ORDERED: LORA-1041 PO (21:46)
[2024-07-04] MEDS ORDERED: HOME MED LIST COMPLETE! XX SCH (21:50)
[2024-07-04 22:32] VITALS: BP 159/96
[2024-07-04] MEDS: diphenhydrAMINE 50MG/ML VIAL IV ONE (22:32)
[2024-07-04] MEDS: amLODIPine 5 MG TAB PO ONE (22:32)
[2024-07-05 06:35] VITALS: BP 138/82; TEMP 97.6; O2SAT 100
[2024-07-05] MEDS ORDERED: ANALGESIC BALM CRM 3OZ TOP PRN (07:35)
[2024-07-05] MEDS ORDERED: HYDROCORTISONE 1% CREAM 30GM TOP PRN (07:40)
== END 2024-07-05 09:32 | disposition left against medical advice (07) ==
LOC: M ED 15:37
DX: L29.89 Other pruritus (principal); I16.0 Hypertensive urgency; I10 Essential (primary) hypertension; K21.9 Gastro-esophageal reflux disease without esophagitis; J45.909 Unspecified asthma, uncomplicated; E55.9 Vitamin D deficiency, unspecified; F32.A Depression, unspecified; F19.10 Other psychoactive substance abuse, uncomplicated; Z88.1 Allergy status to other antibiotic agents; Z91.040 Latex allergy status; Z79.899 Other long term (current) drug therapy; Z53.9 Procedure and treatment not carried out, unspecified reason
CPT/HCPCS: 36415; 71045; 74177; 80048; 80076; 82550; 82553; 83605; 83690; 84484; 85025; 93005; 93041; 93970; 96374; 96375; 96376; 99285; J1200; J1920; J2060; Q9967

== ENCOUNTER 2024-07-09 12:54 | Emergency (ER) | payer OTHER ==
[~2024-07-09] VITALS: Ht 149.9 cm; Wt 43.4 kg
[~2024-07-09 12:54] MED LIST changes: +LORA-1041 PO
[2024-07-09 13:00] VITALS: TEMP 97.4
[2024-07-09 14:31] LABS: BASO % 0.7 % (0.0-1.0); EOS # 0.1 10^3/uL (0.0-0.5); EOS % 1.5 % (0.0-3.0); HEMATOCRIT 37.8 % (36.0-47.0); HEMOGLOBIN 12.7 g/dl (12.0-15.5); LYMPH # 0.8 10^3/uL (1.5-5.0); LYMPH % 13.7 % (24.0-44.0); MEAN CORPUSCULAR HEMOGLOBIN 31.4 pg (27.0-33.0); MEAN CORPUSCULAR HGB CONC 33.6 g/dl (32.0-36.5); MEAN CORPUSCULAR VOLUME 93.6 fl (80.0-96.0); MONO # 0.3 10^3/uL (0.0-0.8); MONO % 5.3 % (2.0-8.0); NEUTROPHILS # 4.8 10^3/uL (1.5-8.5); NEUTROPHILS % 78.5 % (36.0-66.0); PLATELET COUNT, AUTOMATED 220 10^3/uL (150-450); RED BLOOD COUNT 4.04 10^6/uL (4.00-5.40); WHITE BLOOD COUNT 6.1 10^3/uL (4.0-10.0)
[2024-07-09] MEDS: LABETALOL 100MG/20ML VIAL IV ONE ×2 (14:45→15:46)
[2024-07-09 14:46] LABS: CK-MB VALUE MASS 5.4 NG/ML (<3.6)
[2024-07-09 14:47] LABS: LIPASE 61 U/L (12-53)
[2024-07-09 14:48] LABS: AMYLASE 118 U/L (30-118)
[2024-07-09 14:49] LABS: ALBUMIN 3.3 G/DL (3.2-5.2); ALKALINE PHOSPHATASE 95 U/L (35-104); ALT/SGPT 22 U/L (7.0-40); AST/SGOT 21 U/L (<34); BILIRUBIN,DIRECT < 0.1 MG/DL (<0.4); BILIRUBIN,TOTAL 0.2 MG/DL (0.3-1.2); BLOOD UREA NITROGEN 26 MG/DL (9-23); CARBON DIOXIDE LEVEL 30 MMOL/L (20-31); CHLORIDE LEVEL 107 MMOL/L (98-107); CREATININE FOR GFR 0.87 MG/DL (0.55-1.30); GLOMERULAR FILTRATION RATE > 60.0 (>51); GLUCOSE, FASTING 89 MG/DL (60-100); POTASSIUM SERUM 4.9 MMOL/L (3.5-5.1); SODIUM LEVEL 143 MMOL/L (136-145); TOTAL PROTEIN 6.3 G/DL (5.7-8.2)
[2024-07-09 14:52] LABS: CPK CREATINE PHOSPHOKINASE 323 U/L (34-145); MB/CK RELATIVE INDEX 1.67 (< OR =4)
[2024-07-09] MEDS ORDERED: ISOVUE-370 76% 100ML VIAL As Ordered ONE (15:22)
[2024-07-09 15:46] VITALS: BP 204/110
[2024-07-09] MEDS: KETOROLAC 30 MG/ML 1ML VIAL IV ONE (17:30)
[2024-07-09 17:37] LABS: KETONE, URINE AUTO RFX NEGATIVE (NEGATIVE); LEUKOCYTE ESTERASE UR AUTO RFX NEGATIVE (NEGATIVE); NITRITE, URINE AUTO RFX NEGATIVE (NEGATIVE); RBC, URINE AUTO RFX 0 /HPF (0-3); SQUAM EPITHELIAL CELL UR AURFX 1 /HPF (0-6); WBC, URINE AUTO RFX 1 /HPF (0-3)
[2024-07-09] MEDS ORDERED: NORV5TAB PO (19:44)
[2024-07-09 19:45] VITALS: BP 139/89; O2SAT 98
== END 2024-07-09 19:57 | disposition home or self-care (01) ==
LOC: M ED 12:54 → EDBD 12:54 → M ED 19:57
DX: R10.9 Unspecified abdominal pain (principal); I10 Essential (primary) hypertension; Z87.891 Personal history of nicotine dependence; Z88.1 Allergy status to other antibiotic agents; Z91.040 Latex allergy status; Z79.899 Other long term (current) drug therapy
CPT/HCPCS: 74177; 80048; 80076; 81001; 82150; 82550; 82553; 83690; 84484; 85025; 87486; 87581; 87633; 87798; 93041; 96374; 96375; 96376; 99285; J1885; J1920; Q9967

== ENCOUNTER 2024-07-23 08:57 | Emergency (ER) | payer OTHER ==
[~2024-07-23] VITALS: Ht 149.9 cm; Wt 45.5 kg
[2024-07-23] MEDS: DICYCLOMINE INJ 20MG/2ML IM ONE (09:46)
[2024-07-23] MEDS ORDERED: NORV5TAB PO (10:46)
[2024-07-23] MEDS ORDERED: HOME MED LIST COMPLETE! XX SCH (10:50)
[2024-07-23] MEDS ORDERED: DICY1CAP8 PO (10:56)
[2024-07-23 11:15] VITALS: BP 144/96; TEMP 97.9; O2SAT 100
== END 2024-07-23 11:16 | disposition home or self-care (01) ==
LOC: M ED 08:57 → EDBD 08:57 → M ED 11:16
DX: G89.4 Chronic pain syndrome (principal); I10 Essential (primary) hypertension; K21.9 Gastro-esophageal reflux disease without esophagitis; B18.2 Chronic viral hepatitis C; F41.9 Anxiety disorder, unspecified; F32.A Depression, unspecified; F17.210 Nicotine dependence, cigarettes, uncomplicated; F15.10 Other stimulant abuse, uncomplicated; Z88.1 Allergy status to other antibiotic agents; Z91.040 Latex allergy status; Z79.899 Other long term (current) drug therapy
CPT/HCPCS: 96372; 99284; J0500